=== PATIENT | female | born 1970 | race Caucasian/White ===

== ENCOUNTER → 2018-05-14 | Outpatient (CLI) | payer MEDICAID ==
--- NOTE | 2018-05-14 16:50 | Diagnostic Imaging Report ---
INDICATION: Shortness of breath, obstructive airways disease. EXAM: PA and lateral chest FINDINGS: There are postop changes from right thoracotomy with resection of portions of the ribs and right posterior thoracic cage. Heart size and pulmonary vascularity are normal. Lungs are clear. There are no effusions or pneumothoraces. IMPRESSION: There is some deformity of the thoracic cage in the right posterior chest presumably from previous thoracotomy. No acute abnormality is seen. Dictated by: Dictated on workstation # [id number]
== END ==
LOC: LAB 15:05
PROVIDERS: ATTEND Nurse Practitioner Family
DX: J45.909 Unspecified asthma, uncomplicated (principal); J42 Unspecified chronic bronchitis; G47.10 Hypersomnia, unspecified; G25.81 Restless legs syndrome
CPT/HCPCS: 71046

== ENCOUNTER → 2018-05-27 | Outpatient (CLI) | payer MEDICAID ==
[2018-05-14 15:58] LABS: ABG BASE EXCESS 3.8 MMOL/L (-2.5-2.5); ABG OXYGEN SATURATION 97 % (94-100); ABG PCO2 39 MMHG (35-45); ABG PH 7.46 (7.37-7.43); ABG PO2 88 MMHG (79-93); ABG TCO2 28.7 MMOL/L (21.0-31.0)
[2018-05-14 16:00] LABS: ALLENS TEST POSITIVE; INSPIRED O2 ROOM AIR; PATIENT TEMP 98.4; VENTILATOR NO
[~2018-05-27] MED LIST: RT-ALBUTEROL SULF 2.5 MG/3 ML PRE-MIX VIAL INH ONE
== END ==
LOC: RT 12:11
PROVIDERS: ATTEND Nurse Practitioner Family
DX: J45.909 Unspecified asthma, uncomplicated (principal); J42 Unspecified chronic bronchitis; G47.10 Hypersomnia, unspecified; G25.81 Restless legs syndrome
CPT/HCPCS: 36600; 82805; 94060; 94726; 94729

== ENCOUNTER 2018-07-25 15:51 | Emergency (ER) | payer MEDICAID | END 2018-07-25 17:38 | disposition home or self-care (01) | LOC: ER 15:51 ==

== ENCOUNTER 2018-08-04 05:16 | Inpatient (IN) | payer MEDICAID ==
[~2018-08-04] VITALS: Ht 152.4 cm; Wt 153.1 kg
[2018-08-04] VITALS (8 sets, daily range): BP systolic 132–178; BP diastolic 66–85
[~2018-08-04 05:16] MED LIST changes: +CEPH500T PO; -RT-ALBUTEROL SULF 2.5 MG/3 ML PRE-MIX VIAL INH ONE
--- OUTSIDE RECORDS SUMMARY | 2018-08-04 05:28 | XMS REPORT | Continuity of Care Document ---
Author Author [facility] Organization [facility] Address Unknown Phone Unavailable Allergies Active Description Code Type Severity Reaction Onset Reported/Identified Relationship to Patient Clinical Status Yes Most psych meds Drug N/A N/A Yes penicillin Drug N/A N/A Yes Stadol Drug N/A N/ A Yes traMADol Drug N/A N/A Yes BUTORPHANOL TARTRATE UNKNOWN UNKNOWN Yes PENICILLINS UNKNOWN UNKNOWN Yes PSYCH MEDS UNKNOWN UNKNOWN Yes BUTORPHANOL TARTRATE DRUG INGREDI N/A N/A 01/29/2011 Yes PENICILLINS 26 Drug Class N/A N/A 01/29/2011 Yes DULOXETINE HCL 86330 DRUG N/A N/A 11/01/2011 Yes DULOXETINE HCL 08209 DRUG N/A Other 11/01/2011 11/01/2011 Yes GABAPENTIN 34222 DRUG INGREDI N /A N/A 11/01/2011 Yes OXCARBAZEPINE 34786 DRUG INGREDI Med Hives 11/01/2011 Yes ZIPRASIDONE 71020 DRUG INGREDI N/A N/A 11/01/2011 Yes TRAMADOL 76722 DRUG INGREDI N/ A Itching~Nausea 03/07/2017 03/07/2017 Yes penicillin NKMA N/A UNKNOWN AT THIS TIME 08/15/2017 Yes Stadol NKMA N/A UKNOWN AT THIS TIME 08/15/2017 Yes penicillin NKMA N/A N/V, FEVER 08/16/2017 Yes butorphanol [id number] Drug Allergy Severe N/A 05/27/2018 Yes Penicillins [id number] Drug Allergy Unknown NAUSEA 05/27/2018 Yes SYMBALTA SYMBALTA Unknown NAUSEA 05/27/2018 Medications Medication Packaging Start Date Stop Date Route Dosage Sig pramipexole (MIRAPEX) 0.25 mg tablet -- TAKE TWO TABLETS BY MOUTH ONCE DAILY. tablet 11/15/2016 NITROGLYCERIN 0.4 MG SL SUBL Sublingual 0.4 EVERY 5 MIN PRN ASPIRIN 81 MG PO CHEW 12/12/2016 Oral 324 ONCE HYDROXYZINE HCL 25 MG PO TABS Oral 25 ONCE SUMAtriptan-naproxen (TREXIMET) 85-500 mg tablet -- Take 1 tablet by mouth two times a day after meals, as needed for Other (Migraines) tablet 02/13/2017 Oral 2 TIMES A DAY AFTER MEALS NEEDED 2 TIMES A DAY AFTER MEALS NEEDED pregabalin(Lyrica) 08/15/2017 Oral 150 mg 150 mg, Oral , BID, 0 Refill(s) diclofenac(diclofenac) 2017 Oral 75 mg 75 mg , Oral, BID, 0 Refill(s) divalproex sodium(divalproex sodium 500 mg oral tablet, extended release) 1 tabs 08/15/2017 Oral 500 mg 500 mg=1 tabs, Oral, BID, 0 Refill(s) metoprolol(metoprolol succinate 100 mg oral tablet, extended release) 1 tabs 08/15/2017 Oral 100 mg 100 mg=1 tabs, Oral, BID, 0 Refill(s) SUMAtriptan-naproxen(Treximet 85 mg-500 mg oral tablet) 1 tabs 08/15/2017 Oral 1 tabs, Oral, Once, may repeat dose once in 2 hours, PRN: as needed for migraine headache, 0 Refill(s) glyBURIDE(glyBURIDE 2.5 mg oral tablet) 1 tabs 08/15/2017 Oral 2.5 mg 2.5 mg=1 tabs, Oral, BID, 0 Refill(s) atorvastatin(atorvastatin 20 mg oral tablet) 1 tabs 08/15/2017 Oral 20 mg 20 mg=1 tabs, Oral, Daily, 0 Refill(s) hydrochlorothiazide(hydroCHLOROthiazide 25 mg oral tablet) 1 tabs 08/15/2017 Oral 25 mg 25 mg=1 tabs, Oral, Daily, 0 Refill(s) levothyroxine(levothyroxine) Oral 112 mcg 112 mcg, Oral, Daily, 0 Refill(s) Lactated Ringers Injection(Lactated Ringers Injection 1,000 mL) 1,000 mL 08/16/2017 08/16/2017 IV 10 mL/hr, IV midazolam(Versed) 2 mL 08/16/2017 08/16/2017 IV Push 2 mg 2 mg=2 mL, IV Push, Once fentaNYL(Sublimaze) 1 mL 201708/16/2017 IV Push 50 mcg 50 mcg=1 mL, IV Push, Once famotidine(Pepcid) 2 mL 08/16/2017 08/16/2017 IV Push 20 mg 20 mg=2 mL, IV Push, Once HYDROmorphone(Dilaudid) 2 mL 201708/16/2017 IV Push 2 mg 2 mg=2 mL, IV Push, q4hr, PRN: Pain - Breakthrough oxycodone-acetaminophen(Percocet 5/325 oral tablet) 2 tabs 08/16/2017 08/16/2017 Oral 2 tabs, Oral, q4hr, PRN: Pain Moderate (4-6) oxycodone-acetaminophen(Percocet 5/325 oral tablet) 1 tabs 08/16/2017 Oral 1 tabs, Oral, q4hr, PRN: Pain Moderate (4-6), 0 Refill(s) HYDROmorphone(Dilaudid) 0.5 mL 08/16/2017 IV Push 0.5 mg 0.5 mg=0.5 mL, IV Push, q5min, PRN: Pain HYDROmorphone(Dilaudid) 0.5 mL 08/16/2017 IV Push 0.5 mg 0.5 mg=0.5 mL, IV Push, q10min, PRN: Pain ORPHENADRINE INJ 60 MG/2CC (NORFLEX) MG 02/11/2018 02/11/2018 ONCE&0201 HYDROCODONE/APAP 5MG/325MG TAB 5 MG/325MG (MIKE-TAB 5/325) TAB 02/11/2018 02/11/2018 ONCE&0229 KETOROLAC VIAL INJ 60 MG/2CC (TORADOL VIAL) MG 02/11/2018 02/15/2018 Q6H&0600,1200,1800,2359 SUMATRIPTAN TAB 50 MG (IMITREX) MG 02/11/2018 02/18/2018 PRN Q6H NORMAL SALINE 1000CC IV BAG INJ 0.9 % (NS 1000CC IV BAG) ml 02/19/2018 02/20/2018 CONTINUOUSEVERY 0 Hour INSULIN REGULAR HUMAN INJ 100 UNITS/CC (HUMULIN R / NOVOLIN R INSULIN) UNITS 02/19/2018 02/19/2018 ONCE&1750 NORMAL SALINE 1000CC IV BAG INJ 0.9 % (NS 1000CC IV BAG) ml 02/19/2018 03/06/2018 CONTINUOUSEVERY 0 Hour Potassium Chloride Powder for Oral Soln 20mEQ packet MEQ 02/19/2018 02/19/2018 ONCE&1930 INSULIN ASPART PEN INJ 100 UNITS/CC (NOVOLOG FLEXPEN) UNITS 02/27/2018 02/27/2018 ONCE&1701 POTASSIUM CHLORIDE TAB 20 MEQ (K-DUR) MEQ 02/27/2018 02/27/2018 ONCE&1731 MECLIZINE TAB 25 MG (ANTIVERT) MG 02/27/2018 02/27/2018 PRN ONCE KETOROLAC VIAL INJ 60 MG/2CC (TORADOL VIAL) MG 03/21/2018 03/21/2018 ONCE&1549 Problems Date Dx Coded Attending Type Code Diagnosis Diagnosed By 08/28/2016 PUJA CUELLAR WORKING E03.9 Hypothyroidism, unspecified 08/28/2016 PUJA CUELLAR WORKING I10 Essential (primary) hypertension 08/28/2016 PUJA CUELLAR WORKING R07.89 Other chest pain 08/28/2016 PUJA CUELLAR WORKING Z01.419 Encounter for gynecological examination (general) (routine) without abnormal findings 08/28/2016 PUJA CUELLAR WORKING Z12.4 Encounter for screening for malignant neoplasm of cervix 08/28/2016 WORKING E03.9 Hypothyroidism, unspecified 08/28/2016 WORKING G43.009 Migraine without aura, not intractable, without status migrainosus 08/28/2016 WORKING G89.4 Chronic pain syndrome 08/28/2016 WORKING I10 Essential (primary) hypertension 08/28/2016 WORKING M79.7 Fibromyalgia 08/28/2016 WORKING R07.89 Other chest pain 08/28/2016 WORKING R56.9 Unspecified convulsions (CMS-HCC) 08/28/2016 WORKING R60.0 Localized edema 08/28/2016 WORKING Z01.419 Encounter for gynecological examination (general) (routine) without abnormal findings 08/28/2016 WORKING Z12.4 Encounter for screening for malignant neoplasm of cervix 08/28/2016 WORKING Z23 Encounter for immunization 08/28/2016 WORKING Z68.43 Body mass index (bmi) 50-59.9 , adult ([facility]) 09/01/2016 PUJA CUELLAR WORKING R60.0 Localized edema 10/16/2016 V [id number] Insect Bite 10/17/2016 PUJA CUELLAR WORKING E03.9 Hypothyroidism, unspecified 10/17/2016 PUJA CUELLAR WORKING L08.9 Local infection of the skin and subcutaneous tissue, unspecified 10/17/2016 PUJA CUELLAR WORKING M79.89 Other specified soft tissue disorders 10/17/2016 PUJA CUELLAR WORKING R06.02 Shortness of breath 10/17/2016 PUJA CUELLAR WORKING R07.89 Other chest pain 10/17/2016 PUJA CUELLAR WORKING S60.469A Insect bite (nonvenomous) of unspecified finger, initial encounter 10/17/2016 PUJA CUELLAR WORKING W57.XXXA Bitten or stung by nonvenomous insect and other nonvenomous arthropods, initial encounter 11/15/2016 PUJA CUELLAR WORKING E03.9 Hypothyroidism, unspecified 11/15/2016 PUJA CUELLAR WORKING M79.672 Pain in left foot 11/15/2016 PUJA CUELLAR WORKING M79.89 Other specified soft tissue disorders 11/15/2016 PUJA CUELLAR WORKING M79.672 Pain in left foot 11/15/2016 PUJA CUELLAR WORKING M79.89 Other specified soft tissue disorders 12/12/2016 DEVADER, ABDULKADIR E V [id number] Chest Pain DEVADER, ABDULKADIR E 12/12/2016 DEVADER, ABDULKADIR E V I10 Essential (primary) hypertension DEVADER, ABDULKADIR E 12/12/2016 DEVADER, ABDULKADIR E V R07.9 Chest pain, unspecified DEVADER, ABDULKADIR E 01/03/2017 NATALIE MILES V R07.9 Chest pain, unspecified LEXNATALIE CAMPO P 02/19/2017 INGRAMANN OSMAN M V I10 Essential (primary) hypertension ANN INGRAM M 02/19/2017 ADORE INGRMAAH M V R06.02 Shortness of breath INGRAM, ANN Gutierrez 02/19/2017 INGRAM, ANN Gutierrez V R53.83 Other fatigue INGRAM, ANN Gutierrez 02/19/2017 INGRAM, ANN Gutierrez V R60.9 Edema, unspecified INGRAM, ANN Gutierrez 02/19/2017 INGRAM, ANN Gutierrez V Z82.49 Family history of ischemic heart disease and other diseases of the circulatory system ANN INGRAM 08/07/2017 P R9431 Abnormal electrocardiogram [ECG] [EKG] 08/21/2017 House Shawn Final E03.9 Hypothyroidism, unspecified 08/21/2017 House Shawn Final E11.9 Type 2 diabetes mellitus without complications 08/21/2017 House Shawn Final E66.01 Morbid (severe) obesity due to excess calories 08/21/2017 House Shawn Final I10 Essential (primary) hypertension 08/21/2017 House Shawn Final I25.2 Old myocardial infarction 08/21/2017 Lacy,[place] Reason M21.6X2 Other acquired deformities of left foot 08/21/2017 House Shawn Final M67.02 Short Achilles tendon (acquired), left ankle 08/21/2017 House Shawn Final R56.9 Unspecified convulsions 08/21/2017 House Shawn Final Z68.44 Body mass index (BMI) 60.0-69.9, adult 08/21/2017 House Shawn Final Z79.84 detention (current) use of oral hypoglycemic drugs 08/21/2017 House Shawn Final Z87.891 Personal history of nicotine dependence 08/21/2017 House Shawn Final Z88.0 Allergy status to penicillin 08/21/2017 House Shawn Final Z88.8 Allergy status to other drugs, medicaments and biological substances status 02/11/2018 FABIAN GARCÍA W 338.2 CHRONIC PAIN 02/11/2018 FABIAN GARCÍA A 346.90 MIGRAINE, UNSPECIFIED, WITHOUT MENTION OF INTRACTABLE MIGRAINE, WITHOUT MENTION OF STATUS MIGRAINOSUS 02/11/2018 FABIAN GARCÍA W 724.2 LUMBAGO 02/11/2018 RICKY FABIAN Valverde G43.909 MIGRAINE, UNSP, NOT INTRACTABLE, WITHOUT STATUS MIGRAINOSUS 02/11/2018 RICKYMALLIKAFABIAN W G89.29 OTHER CHRONIC PAIN 02/11/2018 RICKYMALLIKAFABIAN W M54.5 LOW BACK PAIN 02/19/2018 Ronak Laurent 250.80 DIABETES MELLITUS WITH OTHER SPECIFIED MANIFESTATIONS, TYPE II OR UNSPECIFIED TYPE, NOT STATED UNCONTROLLED 02/19/2018 Ronak Laurent 278.01 MORBID OBESITY 02/19/2018 Ronak Laurent E11.65 TYPE 2 DIABETES MELLITUS WITH HYPERGLYCEMIA 02/19/2018 Ronak Laurent E66.01 MORBID (SEVERE) OBESITY DUE TO EXCESS CALORIES 02/27/2018 Bernarda Bliss 250.80 DIABETES MELLITUS WITH OTHER SPECIFIED MANIFESTATIONS, TYPE II OR UNSPECIFIED TYPE, NOT STATED UNCONTROLLED 02/27/2018 Bernarda Bliss E11.65 TYPE 2 DIABETES MELLITUS WITH HYPERGLYCEMIA 03/21/2018 Ronak Laurent S93.602A UNSPECIFIED SPRAIN OF LEFT FOOT, INITIAL ENCOUNTER 05/16/2018 NORMA VAZQUEZ TECHNICAL SUPPORT ENGINEER Ot G25.81 RESTLESS LEGS SYNDROME 05/16/2018 NORMA VAZQUEZ TECHNICAL SUPPORT ENGINEER Ot G47.10 HYPERSOMNIA, UNSPECIFIED 05/16/2018 NORMA VAZQUEZ TECHNICAL SUPPORT ENGINEER Ot J42 UNSPECIFIED CHRONIC BRONCHITIS 05/16/2018 NORMA VAZQUEZ TECHNICAL SUPPORT ENGINEER Ot J45.909 UNSPECIFIED ASTHMA, UNCOMPLICATED 05/27/2018 NORMA VAZQUEZ TECHNICAL SUPPORT ENGINEER Ot G25.81 RESTLESS LEGS SYNDROME 05/27/2018 NORMA VAZQUEZ E TECHNICAL SUPPORT ENGINEER Ot G47.10 HYPERSOMNIA, UNSPECIFIED 05/27/2018 NORMA VAZQUEZ TECHNICAL SUPPORT ENGINEER Ot J42 UNSPECIFIED CHRONIC BRONCHITIS 05/27/2018 NORMA VAZQUEZ TECHNICAL SUPPORT ENGINEER Ot J45.909 UNSPECIFIED ASTHMA, UNCOMPLICATED 05/28/2018 NORMA VAZQUEZ TECHNICAL SUPPORT ENGINEER Ot G25.81 RESTLESS LEGS SYNDROME 05/28/2018 NORMA VAZQUEZ TECHNICAL SUPPORT ENGINEER Ot G47.10 HYPERSOMNIA, UNSPECIFIED 05/28/2018 NORMA VAZQUEZ E TECHNICAL SUPPORT ENGINEER Ot J42 UNSPECIFIED CHRONIC BRONCHITIS 05/28/2018 NORMA VAZQUEZ E TECHNICAL SUPPORT ENGINEER Ot J45.909 UNSPECIFIED ASTHMA, UNCOMPLICATED 05/31/2018 TAYLOR, NORMA E TECHNICAL SUPPORT ENGINEER Ot G25.81 RESTLESS LEGS SYNDROME 05/31/2018 TAYLOR, NORMA E TECHNICAL SUPPORT ENGINEER Ot G47.10 HYPERSOMNIA, UNSPECIFIED 05/31/2018 TAYLORARAMNORMA E TECHNICAL SUPPORT ENGINEER Ot J42 UNSPECIFIED CHRONIC BRONCHITIS 05/31/2018 TAYLORARAM SORENSONINE E TECHNICAL SUPPORT ENGINEER Ot J45.909 UNSPECIFIED ASTHMA, UNCOMPLICATED 06/17/2018 TAYLOR, NORMA E TECHNICAL SUPPORT ENGINEER Ot G25.81 RESTLESS LEGS SYNDROME 06/17/2018 TAYLOR, NORMA E TECHNICAL SUPPORT ENGINEER Ot G47.10 HYPERSOMNIA, UNSPECIFIED 06/17/2018 TAYLOR, NORMA E TECHNICAL SUPPORT ENGINEER Ot J42 UNSPECIFIED CHRONIC BRONCHITIS 06/17/2018 TAYLOR, NORMA E TECHNICAL SUPPORT ENGINEER Ot J45.909 UNSPECIFIED ASTHMA, UNCOMPLICATED 07/08/2018 TAYLORARAM SORENSONINE E TECHNICAL SUPPORT ENGINEER Ot G25.81 RESTLESS LEGS SYNDROME 07/08/2018 TAYLORARAM SORENSONINE E TECHNICAL SUPPORT ENGINEER Ot G47.10 HYPERSOMNIA, UNSPECIFIED 07/08/2018 TAYLOR, NORMA E TECHNICAL SUPPORT ENGINEER Ot J42 UNSPECIFIED CHRONIC BRONCHITIS 07/08/2018 TAYLOR, NORMA E TECHNICAL SUPPORT ENGINEER Ot J45.909 UNSPECIFIED ASTHMA, UNCOMPLICATED 07/08/2018 TAYLORARAM SORENSONINE E TECHNICAL SUPPORT ENGINEER Ot G25.81 RESTLESS LEGS SYNDROME 07/08/2018 TAYLOR, NORMA E TECHNICAL SUPPORT ENGINEER Ot G47.10 HYPERSOMNIA, UNSPECIFIED 07/08/2018 TAYLORARAM SORENSONINE E TECHNICAL SUPPORT ENGINEER Ot J42 UNSPECIFIED CHRONIC BRONCHITIS 07/08/2018 ARAM VAZQUEZINE E TECHNICAL SUPPORT ENGINEER Ot J45.909 UNSPECIFIED ASTHMA, UNCOMPLICATED 07/29/2018 TAMEKA KEYS, LEATHA Shah Ot E03.9 HYPOTHYROIDISM, UNSPECIFIED 07/29/2018 TAMEKA KEYS, LEATHA J Ot E11.9 TYPE 2 DIABETES MELLITUS WITHOUT COMPLIC 07/29/2018 TAMEKA KEYS, LEATHA Shah Ot N39.0 URINARY TRACT INFECTION, SITE NOT SPECIF 07/29/2018 TAMEKA KEYS, LEATHA J Ot R40.4 TRANSIENT ALTERATION OF AWARENESS 07/29/2018 TAMEKA KEYS, LEATHA J Ot R55 SYNCOPE AND COLLAPSE 07/29/2018 TAMEKA KEYS, LEATHA J Ot Z87.891 PERSONAL HISTORY OF NICOTINE DEPENDENCE 07/29/2018 TAMEKA KEYS, LEATHA Shah Ot Z88.0 ALLERGY STATUS TO PENICILLIN 07/29/2018 TAMEKA KEYS, LEATHA Shah Ot Z88.8 ALLERGY STATUS TO OTH DRUG/MEDS/BIOL SUB Procedures Code [place] [address] Arthrodesis, midtarsal or tarsometatarsal, single joint.. 08/16/2017 Results Test Result Range URINALYSIS REFLEX TO CULTURE - 08/28/16 11:07 SPECIMEN MIDSTREAM URINE COLOR YELLOW APPEARANCE HAZY CLEAR SPECIFIC GRAVITY 1.014 1.005-1.030 PH, URINE 5.0 5.0-9.0 PROTEIN NEGATIVE mg/dL NEGATIVE GLUC NEGATIVE mg/dL NEGATIVE KETONES NEGATIVE mg/dL NEGATIVE BILIRUBIN NEGATIVE NEGATIVE BLOOD NEGATIVE NEGATIVE NITRITE NEGATIVE NEGATIVE UROBILINOGEN NORMAL mg/dL NORMAL LEUKOCYTE ESTERASE NEGATIVE NEGATIVE WBC'S 2 [HPF] 0-4 RBC'S <1 [HPF] 0-1 MUCUS OCCASIONAL [LPF] NEGATIVE SQUAMOUS EPITHELIAL CELLS 3 [HPF] 0-1 BACTERIA RARE [HPF] NEGATIVE CBC WITH DIFF - 08/28/16 11:07 WBC 8.76 10*3/uL 4.00-10.80 RBC 4.82 10*6/uL 4.20-5.40 HGB 14.9 g/dL 12.0-16.0 HCT 46.7 % 37.0-47.0 MCV 97 fL 81-99 MCH 31 pg 26.0-34.0 MCHC 31.9 g/dL 31.0-37.0 PLATELET COUNT 496 10*3/uL 150-400 RDWCV 13.2 % 11.5-14.5 DIFF TYPE AUTOMATED DIFF NEUTROPHIL % 51.1 % 36.0-66.0 LYMPHOCYTE % 38.1 % 24.0-44.0 MONOCYTE % 6.7 % 1.0-10.0 EOSINOPHIL % 3.2 % 0.0-6.0 BASOPHIL % 0.6 % 0.0-2.0 ABS. NEUTROPHILS 4.47 10*3/uL 1.55-7.13 ABS. LYMPHOCYTES 3.34 10*3/uL 1.00-4.80 ABS. MONOCYTES 0.59 10*3/uL 0.40-1.08 ABS. EOSINOPHILS 0.28 10*3/uL 0.00-0.65 ABS. BASOPHILS 0.05 10*3/uL 0.00-0.11 ABSOLUTE NUCLEATED RBC 0.00 10*3/uL 0.00 PERCENT NUCLEATED RBC 0.0 % 0.0 MPV 9.4 fL 9.4-12.3 RDW STANDARD DEVIATION 47.6 fL 36.4-46.3 GRANULOCYTE, IMMATURE, ABSOLUTE 0.0 10*3/uL 0.0-0.1 GRANULOCYTES, IMMATURE, PERCENT 0.3 % 0.0-0.5 COMPREHENSIVE METABOLIC PANEL - 08/28/16 11:07 POTASSIUM 4.1 mmol/L 3.5-5.1 CALCIUM 9.2 mg/dL 8.5-10.0 GLUCOSE 111 mg/dL 70-115 BUN 10 mg/dL 7-18 CREATININE 0.76 mg/dL 0.55-1.30 SODIUM 140 mmol/L 136-145 CHLORIDE 101 mmol/L 98-107 CO2 26 mmol/L 21-32 GFR ESTIMATED NOT AFR/AM >60 GFR ESTIMATED IF AFR/AM >60 ALT-SGPT 26 U/L 13-56 AST-SGOT 17 U/L 15-37 TOTAL PROTEIN,SERUM 7.8 g/dL 6.0-8.3 ALBUMIN 3.9 g/dL 3.4-5.0 ALKALINE PHOSPHATASE 117 U/L 45-117 TOTAL BILIRUBIN 0.4 mg/dL 0.2-1.0 ANION GAP 13 5-15 GLOBULIN, CALCULATED 3.9 g/dL A/G RATIO 1.0 ratio 1-1.8 LIPID PANEL WITH DIRECT MEASURED LDL - 08/28/16 11:07 TRIGLYCERIDES 183 mg/dL 20-170 CHOLESTEROL 206 mg/dL <201 HDL 73 mg/dL 40-60 LOW DENSITY LIPOPROTEIN, DIRECT 117 mg/dL <100 TSH WITH REFLEX TO FREE T4 - 08/28/16 11:07 TSH 3RD GENERATION 4.410 u[iU]/mL 0.350-4.900 PAP LIQUID PAP SCREENING - 08/28/16 13:00 PAP RESULT NEGATIVE NEGATIVE CBC WITH DIFF - 10/17/16 14:45 WBC 8.46 10*3/uL 4.00-10.80 RBC 4.41 10*6/uL 4.20-5.40 HGB 13.5 g/dL 12.0-16.0 HCT 41.0 % 37.0-47.0 MCV 93 fL 81-99 MCH 31 pg 26.0-34.0 MCHC 32.9 g/dL 31.0-37.0 PLATELET COUNT 400 10*3/uL 150-400 RDWCV 13.3 % 11.5-14.5 DIFF TYPE AUTOMATED DIFF NEUTROPHIL % 53.6 % 36.0-66.0 LYMPHOCYTE % 34.3 % 24.0-44.0 MONOCYTE % 8.3 % 1.0-10.0 EOSINOPHIL % 3.1 % 0.0-6.0 BASOPHIL % 0.5 % 0.0-2.0 ABS. NEUTROPHILS 4.54 10*3/uL 1.55-7.13 ABS. LYMPHOCYTES 2.90 10*3/uL 1.00-4.80 ABS. MONOCYTES 0.70 10*3/uL 0.40-1.08 ABS. EOSINOPHILS 0.26 10*3/uL 0.00-0.65 ABS. BASOPHILS 0.04 10*3/uL 0.00-0.11 ABSOLUTE NUCLEATED RBC 0.00 10*3/uL 0.00 PERCENT NUCLEATED RBC 0.0 % 0.0 MPV 9.4 fL 9.4-12.3 RDW STANDARD DEVIATION 45.6 fL 36.4-46.3 GRANULOCYTE, IMMATURE, ABSOLUTE 0.0 10*3/uL 0.0-0.1 GRANULOCYTES, IMMATURE, PERCENT 0.2 % 0.0-0.5 COMPREHENSIVE METABOLIC PANEL - 10/17/16 14:45 POTASSIUM 3.5 mmol/L 3.5-5.1 CALCIUM 8.6 mg/dL 8.5-10.0 GLUCOSE 137 mg/dL 70-115 BUN 12 mg/dL 7-18 CREATININE 0.73 mg/dL 0.55-1.30 SODIUM 139 mmol/L 136-145 CHLORIDE 103 mmol/L 98-107 CO2 28 mmol/L 21-32 GFR ESTIMATED NOT AFR/AM >60 GFR ESTIMATED IF AFR/AM >60 ALT-SGPT 26 U/L 13-56 AST-SGOT 16 U/L 15-37 TOTAL PROTEIN,SERUM 7.6 g/dL 6.0-8.3 ALBUMIN 3.5 g/dL 3.4-5.0 ALKALINE PHOSPHATASE 118 U/L 45-117 TOTAL BILIRUBIN 0.4 mg/dL 0.2-1.0 ANION GAP 8 5-15 GLOBULIN, CALCULATED 4.1 g/dL A/G RATIO 0.9 ratio 1-1.8 NT PROBRAIN NATRIURETIC PEPTIDE - 10/17/16 14:45 NT PROBRAIN NATRIURETIC PEPTIDE 13 pg/mL <125 TSH WITH REFLEX TO FREE T4 - 10/17/16 14:45 TSH 3RD GENERATION 5.320 u[iU]/mL 0.350-4.900 T4 FREE, DIRECT - 10/17/16 14:45 T4 (THYROXINE), FREE 1.03 ng/dL 0.7-1.48 HEMOGLOBIN A1C - 10/17/16 14:45 HEMOGLOBIN A1C 6.6 % <5.6 ESTIMATED AVERAGE GLUCOSE 143 mg/dL CBC WITH DIFF - 11/15/16 11:03 WBC 6.82 10*3/uL 4.00-10.80 RBC 4.43 10*6/uL 4.20-5.40 HGB 13.4 g/dL 12.0-16.0 HCT 42.0 % 37.0-47.0 MCV 95 fL 81-99 MCH 30 pg 26.0-34.0 MCHC 31.9 g/dL 31.0-37.0 PLATELET COUNT 448 10*3/uL 150-400 RDWCV 14.6 % 11.5-14.5 DIFF TYPE AUTOMATED DIFF NEUTROPHIL % 43.4 % 36.0-66.0 LYMPHOCYTE % 44.3 % 24.0-44.0 MONOCYTE % 7.3 % 1.0-10.0 EOSINOPHIL % 4.3 % 0.0-6.0 BASOPHIL % 0.4 % 0.0-2.0 ABS. NEUTROPHILS 2.96 10*3/uL 1.55-7.13 ABS. LYMPHOCYTES 3.02 10*3/uL 1.00-4.80 ABS. MONOCYTES 0.50 10*3/uL 0.40-1.08 ABS. EOSINOPHILS 0.29 10*3/uL 0.00-0.65 ABS. BASOPHILS 0.03 10*3/uL 0.00-0.11 ABSOLUTE NUCLEATED RBC 0.00 10*3/uL 0.00 PERCENT NUCLEATED RBC 0.0 % 0.0 MPV 9.8 fL 9.4-12.3 RDW STANDARD DEVIATION 51.0 fL 36.4-46.3 GRANULOCYTE, IMMATURE, ABSOLUTE 0.0 10*3/uL 0.0-0.1 GRANULOCYTES, IMMATURE, PERCENT 0.3 % 0.0-0.5 COMPREHENSIVE METABOLIC PANEL - 11/15/16 11:03 POTASSIUM 4.2 mmol/L 3.5-5.1 CALCIUM 8.6 mg/dL 8.5-10.0 GLUCOSE 157 mg/dL 70-115 BUN 14 mg/dL 7-18 CREATININE 0.80 mg/dL 0.55-1.30 SODIUM 143 mmol/L 136-145 CHLORIDE 104 mmol/L 98-107 CO2 30 mmol/L 21-32 GFR ESTIMATED NOT AFR/AM >60 GFR ESTIMATED IF AFR/AM >60 ALT-SGPT 20 U/L 13-56 AST-SGOT 12 U/L 15-37 TOTAL PROTEIN,SERUM 6.9 g/dL 6.0-8.3 ALBUMIN 3.3 g/dL 3.4-5.0 ALKALINE PHOSPHATASE 108 U/L 45-117 TOTAL BILIRUBIN 0.4 mg/dL 0.2-1.0 ANION GAP 9 5-15 GLOBULIN, CALCULATED 3.6 g/dL A/G RATIO 0.9 ratio 1-1.8 TSH WITH REFLEX TO FREE T4 - 11/15/16 11:03 TSH 3RD GENERATION 1.530 u[iU]/mL 0.350-4.900 URIC ACID SERUM - 11/15/16 11:03 URIC ACID 5.2 mg/dL 2.6-6 D-DIMER QUANT (FOR THROMBOSIS) - 11/15/16 11:03 D-DIMER 0.27 ug/mL 0-0.49 CBC WITH AUTO DIFFERENTIAL - 12/12/16 19:30 BASOPHILS RELATIVE PERCENT 0.6 % 0.0-2.5 EOSINOPHILS RELATIVE PERCENT 2.8 % <=5.0 HEMATOCRIT 39.9 % 34.9-44.5 HEMOGLOBIN 13.2 g/dL 12.0-15.5 LYMPHOCYTES RELATIVE PERCENT 40.0 % 22.0-49.0 MEAN CORPUSCULAR HEMOGLOBIN 30.8 pg 26.0-34.0 MEAN CORPUSCULAR HEMOGLOBIN CONC 33.1 g/dL 31.0-37.0 MEAN CORPUSCULAR VOLUME 93.0 fL 81.6-98.3 MONOCYTES RELATIVE PERCENT 9.3 % 2.0-9.0 NEUTROPHILS RELATIVE PERCENT 47.3 % 40.0-75.0 NUCLEATED RED BLOOD CELLS 0 /100 <=0 PLATELET COUNT 293 10E9/L 150-450 RED BLOOD CELL COUNT 4.29 10E12/L 3.90-5.03 RED CELL DISTRIBUTION WIDTH 14.6 % 11.9-15.5 [id number] 6.7 10E9/L 3.5-10.5 2143766 2.68 10E9/L 0.90-2.90 1877694 0.62 10E9/L 0.30-0.90 6481042 0.19 10E9/L 0.05-0.50 9924350 3.17 10E9/L 1.70-7.00 4103943 0.04 10E9/L 0.00-0.30 8301628 0 % PT T APTT - 12/12/16 19:30 APTT 26.0 sec. 25.0-36.0 INR 0.91 INR PROTHROMBIN TIME 12.2 sec. 11.8-14.8 MAGNESIUM - 12/12/16 19:30 MAGNESIUM 1.6 mg/dL 1.6-2.3 COMPREHENSIVE METABOLIC PANEL - 12/12/16 19:30 ALBUMIN 3.9 g/dL 3.4-4.8 ALKALINE PHOSPHATASE 103 U/L 29-122 ALT 12 U/L 10-46 ANION GAP 6 AST 18 U/L 16-37 BILIRUBIN,TOTAL < mg/dL 0.2-1.3 BUN BLOOD 21 mg/dL 6-20 CALCIUM 9.1 mg/dL 8.7-10.5 CHLORIDE 102 mmol/L 99-111 CO2 30 mmol/L 20-36 CREATININE 1.03 mg/dL 0.40-1.10 EGFR 58 mL/min >59 GLUCOSE 139 mg/dL 74-106 POTASSIUM 4.2 mmol/L 3.6-4.9 PROTEIN TOTAL 6.8 g/dL 6.4-8.3 SODIUM 138 mmol/L 136-145 TROPONIN I - 12/12/16 19:30 TROPONIN I < ng/mL 0.000-0.040 EXTRA BLOOD BANK TUBE - 12/12/16 19:30 1324 Extra tube in lab CBC WITH AUTO DIFFERENTIAL - 12/20/16 14:16 BASOPHILS RELATIVE PERCENT 0.8 % 0.0-2.5 EOSINOPHILS RELATIVE PERCENT 4.2 % <=5.0 HEMATOCRIT 41.9 % 34.9-44.5 HEMOGLOBIN 13.7 g/dL 12.0-15.5 LYMPHOCYTES RELATIVE PERCENT 39.5 % 22.0-49.0 MEAN CORPUSCULAR HEMOGLOBIN 30.6 pg 26.0-34.0 MEAN CORPUSCULAR HEMOGLOBIN CONC 32.7 g/dL 31.0-37.0 MEAN CORPUSCULAR VOLUME 93.7 fL 81.6-98.3 MONOCYTES RELATIVE PERCENT 8.9 % 2.0-9.0 NEUTROPHILS RELATIVE PERCENT 46.6 % 40.0-75.0 NUCLEATED RED BLOOD CELLS 0 /100 <=0 PLATELET COUNT 331 10E9/L 150-450 RED BLOOD CELL COUNT 4.47 10E12/L 3.90-5.03 RED CELL DISTRIBUTION WIDTH 14.7 % 11.9-15.5 6553595 8.8 10E9/L 3.5-10.5 6700348 3.46 10E9/L 0.90-2.90 4355842 0.78 10E9/L 0.30-0.90 9851996 0.37 10E9/L 0.05-0.50 9801823 4.09 10E9/L 1.70-7.00 2508020 0.07 10E9/L 0.00-0.30 3882196 0 % IRON SATURATION - 12/20/16 14:16 IRON SATURATION 12 % 15-50 HEMOGLOBIN A1C - 12/20/16 14:16 HEMOGLOBIN A1C 6.8 % <5.7 CBC WITH AUTO DIFFERENTIAL - 02/05/17 20:11 BASOPHILS RELATIVE PERCENT 0.2 % 0.0-2.5 EOSINOPHILS RELATIVE PERCENT 2.0 % <=5.0 HEMATOCRIT 41.1 % 34.9-44.5 HEMOGLOBIN 13.6 g/dL 12.0-15.5 LYMPHOCYTES RELATIVE PERCENT 30.6 % 22.0-49.0 MEAN CORPUSCULAR HEMOGLOBIN 30.2 pg 26.0-34.0 MEAN CORPUSCULAR HEMOGLOBIN CONC 33.1 g/dL 31.0-37.0 MEAN CORPUSCULAR VOLUME 91.3 fL 81.6-98.3 MONOCYTES RELATIVE PERCENT 7.5 % 2.0-9.0 NEUTROPHILS RELATIVE PERCENT 59.7 % 40.0-75.0 NUCLEATED RED BLOOD CELLS 0 /100 <=0 PLATELET COUNT 354 10E9/L 150-450 RED BLOOD CELL COUNT 4.50 10E12/L 3.90-5.03 RED CELL DISTRIBUTION WIDTH 14.1 % 11.9-15.5 0026692 8.5 10E9/L 3.5-10.5 3647774 2.60 10E9/L 0.90-2.90 7333977 0.64 10E9/L 0.30-0.90 6069653 0.17 10E9/L 0.05-0.50 6324726 5.06 10E9/L 1.70-7.00 5848254 0.02 10E9/L 0.00-0.30 7980678 0 % COMPREHENSIVE METABOLIC PANEL - 02/05/17 20:11 ALBUMIN 4.1 g/dL 3.4-4.8 ALKALINE PHOSPHATASE 93 U/L 29-122 ALT 23 U/L 10-46 ANION GAP 8 AST 43 U/L 16-37 BILIRUBIN,TOTAL 0.4 mg/dL 0.2-1.3 BUN BLOOD 17 mg/dL 6-20 CALCIUM 9.1 mg/dL 8.7-10.5 CHLORIDE 108 mmol/L 99-111 CO2 26 mmol/L 20-36 CREATININE 0.73 mg/dL 0.40-1.10 EGFR > mL/min >59 GLUCOSE 152 mg/dL 74-106 POTASSIUM 4.0 mmol/L 3.6-4.9 PROTEIN TOTAL 6.9 g/dL 6.4-8.3 SODIUM 142 mmol/L 136-145 EXTRA LIGHT BLUE TOP - 02/05/17 20:11 1324 Extra tube in lab EXTRA LIGHT GREEN TOP - 02/05/17 20:11 1324 Extra tube in lab HEMOGLOBIN A1C - 04/06/17 15:46 HEMOGLOBIN A1C 6.7 % <5.7 B-TYPE NATRIURETIC PEPTIDE - 04/06/17 15:46 B-TYPE NATRIURETIC PEPTIDE 20 pg/mL <=100 VITAMIN D2/D3 TOTAL - 04/06/17 15:46 VITAMIN D2/D3 TOTAL 28 ng/ml 30-100 TSH - 05/15/17 15:30 TSH 4.07 mIU/L NRG CMP - 08/01/17 19:17 GLUCOSE 117 mg/dL 65-99 UREA NITROGEN (BUN) 9 mg/dL 7-25 CREATININE 0.74 mg/dL 0.50-1.10 eGFR NON-AFR. CITIZEN OF [place] 98 mL/min/1.73m2 > OR=60 eGFR 113 mL/min/1.73m2 > OR=60 BUN/CREATININE RATIO NOT APPLICABLE (calc) 6-22 SODIUM 138 mmol/L 135-146 POTASSIUM 3.9 mmol/L 3.5-5.3 CHLORIDE 103 mmol/L 98-110 CARBON DIOXIDE 26 mmol/L 20-31 CALCIUM 9.2 mg/dL 8.6-10.2 PROTEIN, TOTAL 7.3 g/dL 6.1-8.1 ALBUMIN 4.2 g/dL 3.6-5.1 GLOBULIN 3.1 g/dL (calc) 1.9-3.7 ALBUMIN/GLOBULIN RATIO 1.4 (calc) 1.0-2.5 BILIRUBIN, TOTAL 0.5 mg/dL 0.2-1.2 ALKALINE PHOSPHATASE 102 U/L 33-115 AST 21 U/L 10-35 ALT 15 U/L 6-29 Glucose NPT - 08/16/17 07:39 Glucose NPT 152 mg/dL 70-100 Screen, Urine NPT - 08/16/17 08:42 Screen, Urine NPT Negative NA CBC - 01/29/18 11:31 WHITE BLOOD CELL COUNT 8.9 Thousand/uL 3.8-10.8 RED BLOOD CELL COUNT 4.42 Million/uL 3.80-5.10 HEMOGLOBIN 13.7 g/dL 11.7-15.5 HEMATOCRIT 41.1 % 35.0-45.0 MCV 93.0 fL 80.0-100.0 MCH 31.0 pg 27.0-33.0 MCHC 33.3 g/dL 32.0-36.0 RDW 14.6 % 11.0-15.0 PLATELET COUNT 405 Thousand/uL 140-400 MPV 9.2 fL 7.5-12.5 ABSOLUTE NEUTROPHILS 3809 cells/uL 8777-4162 ABSOLUTE LYMPHOCYTES 4050 cells/uL 850-3900 ABSOLUTE MONOCYTES 659 cells/uL 200-950 ABSOLUTE EOSINOPHILS 312 cells/uL 15-500 ABSOLUTE BASOPHILS 71 cells/uL 0-200 NEUTROPHILS 42.8 % NRG LYMPHOCYTES 45.5 % NRG MONOCYTES 7.4 % NRG EOSINOPHILS 3.5 % NRG BASOPHILS 0.8 % NRG Urinalysis - 02/19/18 16:40 Icotest N/A Negative Urine Volume Urine Volume Sufficient (10mL) Urine Yeast No Yeast present Urine-Appearance Slightly Cloudy Clear Urine-Bacteria Trace Urine-Bilirubin Negative Negative Urine-Blood Negative Negative Urine-Color Yellow Colorless-Lt. Yellow Urine-Epithelial Cells 0-5/HPF Urine-Glucose 2+ Negative Urine-Ketones Negative Negative Urine-Leukocytes Negative Negative Urine-Nitrite Negative Negative Urine-Other Urine Saved if Culture Needed (48hrs from time of collection) Urine-pH 6.5 5-8.5 Urine-Protein Negative Negative Urine-RBC Negative Urine-Specific [place] 1.010 1.000-1.030 Urine-WBC Rare/HPF Urobilinogen 0.2 0.2-1.0 Blood Culture - 02/19/18 16:40 PRELIM CULTURE RESULTS Blood Culture Negative, No Growth Day 1 FINAL CULTURE RESULTS Blood Culture Negative, No Growth Day 5 MEDIA PLATED Blood Culture Media Position [id number] CULTURE SOURCE Arterial stick Blood Culture - 02/19/18 16:40 PRELIM CULTURE RESULTS Blood Culture Negative, No Growth Day 1 FINAL CULTURE RESULTS Blood Culture Negative, No Growth Day 5 MEDIA PLATED Blood Culture Media Position A12 CULTURE SOURCE AC Lactic Acid - 02/19/18 19:28 Lactic Acid 19.6 mg/dL 4.5-19.8 TSH - 03/27/18 13:15 TSH 2.87 mIU/L NRG Arterial blood gas measurement - 05/14/18 15:50 Blood pCO2 39 mm[Hg] 35-45 Blood pO2 88 mm[Hg] 79-93 Arterial blood bicarbonate measurement (moles/volume) 28 mmol/L 23-27 Arterial blood base excess by calculation 3.8 mmol/L -2.5 -2.5 Arterial blood oxygen saturation measurement 97 % 94-100 * Inhaled oxygen flow rate ROOM AIR NRG Arterial blood pH measurement with patient temperature correction 7.46 7.37-7.43 Arterial blood carbon dioxide, total measurement (moles/volume) 28.7 mmol/L 21.0-31.0 Body site RIGHT RADIAL NRG Assessment of wrist artery patency prior to arterial puncture POSITIVE NRG Setting of ventilation mode NO NRG Measurement of body temperature 98.4 NRG Capillary blood glucose measurement by glucometer (mass/volume) - 07/25/18 15: 53 Capillary blood glucose measurement by glucometer (mass/volume) 102 mg/dL 70-110 Complete blood count (CBC) with automated white blood cell (WBC) differential - 07/25/18 15:58 Blood leukocytes automated count (number/volume) 8.2 10*3/uL 4.3-11.0 Blood erythrocytes automated count (number/volume) 4.63 10*6/uL 4.35-5.85 Venous blood hemoglobin measurement (mass/volume) 12.8 g/dL 11.5-16.0 Blood hematocrit (volume fraction) 40 % 35-52 Automated erythrocyte mean corpuscular volume 86 [foz_us] 80-99 Automated erythrocyte mean corpuscular hemoglobin (mass per erythrocyte) 28 pg 25-34 Automated erythrocyte mean corpuscular hemoglobin concentration measurement ( mass/volume) 32 g/dL 32-36 Automated erythrocyte distribution width ratio 15.8 % 10.0-14.5 Automated blood platelet count (count/volume) 442 10*3/uL 130-400 Automated blood platelet mean volume measurement 8.7 [foz_us] 7.4-10.4 Automated blood neutrophils/100 leukocytes 40 % 42-75 Automated blood lymphocytes/100 leukocytes 45 % 12-44 Blood monocytes/100 leukocytes 11 % 0-12 Automated blood eosinophils/100 leukocytes 4 % 0-10 Automated blood basophils/100 leukocytes 1 % 0-10 Blood neutrophils automated count (number/volume) 3.3 10*3 1.8-7.8 Blood lymphocytes automated count (number/volume) 3.7 10*3 1.0-4.0 Blood monocytes automated count (number/volume) 0.9 10*3 0.0-1.0 Automated eosinophil count 0.3 10*3/uL 0.0-0.3 Automated blood basophil count (count/volume) 0.0 10*3/uL 0.0-0.1 PT panel in platelet poor plasma by coagulation assay - 07/25/18 15:58 Prothrombin time (PT) in platelet poor plasma by coagulation assay 13.1 s 12.2-14.7 INR in platelet poor plasma or blood by coagulation assay 1.0 0.8-1.4 Activated partial thromboplastin time (aPTT) in platelet poor plasma bycoagulation assay - 07/25/18 15:58 Activated partial thromboplastin time (aPTT) in platelet poor plasma bycoagulation assay 29 s 24-35 Comprehensive metabolic panel - 07/25/18 15:58 Serum or plasma sodium measurement (moles/volume) 141 mmol/L 135-145 Serum or plasma potassium measurement (moles/volume) 3.8 mmol/L 3.6-5.0 Serum or plasma chloride measurement (moles/volume) 102 mmol/L 98-107 Carbon dioxide 28 mmol/L 21-32 Serum or plasma anion gap determination (moles/volume) 11 mmol/L 5-14 Serum or plasma urea nitrogen measurement (mass/volume) 11 mg/dL 7-18 Serum or plasma creatinine measurement (mass/volume) 0.77 mg/dL 0.60-1.30 Serum or plasma urea nitrogen/creatinine mass ratio 14 NRG Serum or plasma creatinine measurement with calculation of estimated glomerular filtration rate > NRG Serum or plasma glucose measurement (mass/volume) 99 mg/dL 70-105 Serum or plasma calcium measurement (mass/volume) 9.0 mg/dL 8.5-10.1 Serum or plasma total bilirubin measurement (mass/volume) 0.4 mg/dL 0.1-1.0 Serum or plasma alkaline phosphatase measurement (enzymatic activity/volume) 140 U/L 40-136 Serum or plasma aspartate aminotransferase measurement (enzymatic activity/ volume) 13 U/L 5-34 Serum or plasma alanine aminotransferase measurement (enzymatic activity/volume ) 13 U/L 0-55 Serum or plasma protein measurement (mass/volume) 7.3 g/dL 6.4-8.2 Serum or plasma albumin measurement (mass/volume) 4.0 g/dL 3.2-4.5 CALCIUM CORRECTED 9.0 mg/dL 8.5-10.1 Serum or plasma troponin i.cardiac measurement (mass/volume) - 07/25/18 15:58 Serum or plasma troponin i.cardiac measurement (mass/volume) < ng/ mL <0.028 THYROID STIMULATING HORMONE - 07/25/18 15:58 THYROID STIMULATING HORMONE 6.78 u[iU]/mL 0.35-4.94 [id number] - 07/25/18 15:58 [id number] 45.9 ug/mL 50.0-100.0 Complete urinalysis with reflex to culture - 07/25/18 16:03 Urine color determination YELLOW NRG Urine clarity determination SLIGHTLY CLOUDY NRG Urine pH measurement by test strip 6 5-9 Specific gravity of urine by test strip 1.025 1.016- 1.022 Urine protein assay by test strip, semi-quantitative 1+ NEGATIVE Urine glucose detection by automated test strip NEGATIVE NEGATIVE Erythrocytes detection in urine sediment by light microscopy NEGATIVE NEGATIVE Urine ketones detection by automated test strip NEGATIVE NEGATIVE Urine nitrite detection by test strip POSITIVE NEGATIVE Urine total bilirubin detection by test strip NEGATIVE NEGATIVE Urine urobilinogen measurement by automated test strip (mass/volume) NORMAL NORMAL Urine leukocyte esterase detection by dipstick 1+ NEGATIVE Automated urine sediment erythrocyte count by microscopy (number/high power field) NONE NRG Automated urine sediment leukocyte count by microscopy (number/high power field ) [HPF] NRG Bacteria detection in urine sediment by light microscopy MODERATE NRG Squamous epithelial cells detection in urine sediment by light microscopy 0-2 NRG Crystals detection in urine sediment by light microscopy NONE NRG Casts detection in urine sediment by light microscopy NONE NRG Mucus detection in urine sediment by light microscopy NEGATIVE NRG Complete urinalysis with reflex to culture CULTURE PENDING NRG Bacterial urine culture - 07/25/18 16:03 Bacterial urine culture [id number] NRG COLONY COUNT >100,000/ML NRG FTX;REPORTABLE SUSCEPTIBILITY REPORTED [id number] NRG RML Sensitivity Panel - 07/25/18 16:03 Gentamicin susceptibility test by minimum inhibitory concentration < = NRG Trimethoprim/sulfamethoxazole susceptibility test by minimum inhibitoryconcentration <= NRG Levofloxacin susceptibility test by minimum inhibitory concentration <= NRG Ampicillin susceptibility test by minimum inhibitory concentration < = NRG Cefazolin susceptibility test by minimum inhibitory concentration < = NRG Ceftriaxone susceptibility test by minimum inhibitory concentration <= NRG Ciprofloxacin susceptibility test by minimum inhibitory concentration <= NRG Meropenem susceptibility test by minimum inhibitory concentration < = NRG Nitrofurantoin susceptibility test by minimum inhibitory concentration 32 NRG Amoxicillin and clavulanate potassium susc CAITLIN <= NRG Arterial blood gas measurement - 07/25/18 16:35 Blood pCO2 41 mm[Hg] 35-45 Blood pO2 62 mm[Hg] 79-93 Arterial blood bicarbonate measurement (moles/volume) 27 mmol/L 23-27 Arterial blood base excess by calculation 2.4 mmol/L -2.5 -2.5 Arterial blood oxygen saturation measurement 93 % 94-100 * Inhaled oxygen flow rate ROOM AIR NRG Arterial blood pH measurement with patient temperature correction 7.42 7.37-7.43 Arterial blood carbon dioxide, total measurement (moles/volume) 28.1 mmol/L 21.0-31.0 Body site RIGHT RADIAL NRG Assessment of wrist artery patency prior to arterial puncture POSITIVE NRG Setting of ventilation mode NO NRG Measurement of body temperature 96.5 NRG Capillary blood glucose measurement by glucometer (mass/volume) - 07/25/18 16: 57 Capillary blood glucose measurement by glucometer (mass/volume) 93 mg/dL 70-110 Encounters ACCT No. Visit Date/Time Discharge Status Pt. Type Provider Facility Loc./Unit Complaint [id number] 04/06/2017 15:40:18 04/06/2017 23:59:59 [facility] Outpatient [place] [id number] 04/06/2017 15:38:43 04/06/2017 23:59:59 [facility] [place]patient [place] [id number] 04/06/2017 15:10:13 04/06/2017 23:59:59 [facility] Outpatient ANN INGRAM [place] [id number] 03/07/2017 11:27:38 03/07/2017 23:59:59 [id number]2017 12:56:06 02/19/2017 23:59:00 [id number]2017 22:08:39 02/19/2017 00:03:00 DIS Emergency TOM PEREZ [facility] [id number] 02/15/2017 12:43:26 02/15/2017 23:59:59 [facility] Outpatient [facility] CODE [id number] 02/05/2017 20:36:04 02/05/2017 22:21:00 DIS Emergency WILLIS SCHAFFER [facility] [id number] 01/25/2017 13:49:36 01/25/2017 23:59:59 CLS Outpatient NATALIE MILES [place] [id number] 01/12/2017 18:47:23 01/12/2017 19:33:00 DIS Emergency BRENT BRAVO [facility] [id number] 01/03/2017 07:56:04 01/03/2017 23:59:00 DIS Outpatient NATALIE MILES [facility] [id number] 12/20/2016 14:06:48 12/20/2016 23:59:59 CLS Outpatient [facility] [id number] 12/20/2016 12:32:09 12/20/2016 23:59:59 CLS Outpatient ANN INGRAM [facility] [id number] 12/12/2016 19:17:11 12/12/2016 21:07:00 DIS Emergency ABDULKADIR JAVED [facility] EMD [id number] 12/01/2016 14:40:35 12/01/2016 23:59:59 CLS Outpatient BOB SCOTT [facility] 823 [id number] 10/16/2016 15:36:13 10/16/2016 15:37:00 DIS Emergency [facility] EMD [id number] 08/21/2016 09:57:38 08/21/2016 23:59:59 CLS Outpatient [facility] 901 [id number] 02/09/2017 12:57:29 Document Registration [id number] 12/12/2016 19:21:19 Document Registration [id number] 08/16/2017 07:04:00 08/16/2017 13:59:00 DIS Outpatient House [facility] [place] V[facility] F3E 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 [id number] 08/17/2017 05:17:23 Document Registration [id number] 08/16/2017 05:17:12 Document Registration [id number] 08/16/2017 05:17:11 Document Registration [id number] 11/13/2017 15:18:00 11/13/2017 16:15:00 DIS Emergency RL DORSEY [facility] ED ED Visit [id number] 03/21/2018 15:27:00 03/21/2018 16:39:00 [id number] 02/27/2018 16:44:00 02/27/2018 18:25:00 [id number] 02/19/2018 16:27:00 02/19/2018 20:16:00 [facility] [id number] 02/11/2018 00:14:00 02/11/2018 03:00:00 [facility] [id number] 02/11/2018 01:59:50 Document Registration [id number] 02/13/2017 12:26:24 Document Registration [id number] 11/15/2016 12:52:43 Document Registration [id number] 10/17/2016 13:27:32 Document Registration [id number] 08/28/2016 08:55:14 Document Registration [id number] 11/23/2016 21:41:59 ACT Document Registration [id number] 08/07/2017 10:47:00 Document Registration [id number] 11/15/2016 10:01:07 11/15/2016 23:59:59 CLS Outpatient [facility] [id number] 11/14/2016 00:00:00 11/14/2016 23:59:59 CLS Outpatient [facility] [id number] 10/17/2016 13:27:32 10/17/2016 23:59:59 CLS Outpatient [facility] [id number] 09/05/2016 00:00:00 09/05/2016 23:59:59 CLS Outpatient [facility] [id number] 09/05/2016 00:00:00 09/05/2016 23:59:59 CLS Outpatient [facility] [id number] 08/30/2016 00:00:00 08/30/2016 23:59:59 CLS Outpatient [facility] [id number] 08/30/2016 00:00:00 08/30/2016 23:59:59 CLS Outpatient [facility] [id number] 08/28/2016 08:55:14 08/28/2016 23:59:59 CLS Outpatient [facility] [id number] 07/24/2018 10:40:00 07/24/2018 23:59:59 [facility] [id number] 03/27/2018 12:40:00 Document Registration [id number] 01/29/2018 10:00:00 Document Registration [id number] 08/01/2017 17:20:00 Document Registration [id number] 05/15/2017 15:00:00 Document Registration [id number] 07/25/2018 15:51:00 07/25/2018 17:38:00 DIS Outpatient TAMEKA KEYS, LEATHA Shah [facility] ER UNREPONSIVE [id number] 07/08/2018 07:36:00 07/08/2018 23:59:59 CLS Outpatient ARAM VAZQUEZINE E [employer] [facility] PULM ASTHMA [id number] 06/06/2018 20:00:00 06/06/2018 23:59:59 CLS Preadmit TAYLOR, NORMA E [employer] [facility] SLEEP ASTHMA, CHRONIC BRONCHITIS, HYPERSOMNIA [id number] 05/27/2018 12:11:00 05/27/2018 23:59:59 CLS Outpatient ARAM VAZQUEZINE E [employer] [facility] RT ASTHMA,CHRONIC BRONCHITIS,HYPERSOMNIA,RESTLESS LEG [id number] 05/14/2018 15:05:00 05/14/2018 23:59:59 CLS Outpatient ARAM VAZQUEZINE E [employer] [facility] LAB ASTHMA [id number] 08/02/2018 10:46:00 PEN Preadmit ARAM VAZQUEZINE E [employer] [facility] SLEEP SUSPECTED SLEEP APNEA,SLEEP DISORDER,ASTHMA [id number] 11/15/2016 10:57:02 11/15/2016 23:59:00 DIS Outpatient [facility] FNRTCL [id number] 11/15/2016 10:55:35 11/15/2016 10:56:00 DIS Outpatient [facility] [id number] 10/17/2016 14:40:55 10/17/2016 23:59:00 [id number]2016 13:39:49 09/01/2016 23:59:00 DIS Outpatient [facility] [id number] 08/28/2016 11:04:23 08/28/2016 23:59:00 DIS Outpatient [facility] [id number] 04/17/2014 17:32:00 04/17/2014 20:09:00 DIS Emergency TEDDY CAPUTO [facility] [id number] 04/17/2014 00:57:00 04/17/2014 04:03:00 DIS Emergency SAPNA [facility] FED [id number] 04/15/2014 22:57:00 04/16/2014 00:43:00 DIS Emergency [facility] [id number] 03/03/2014 09:55:30 03/03/2014 23:59:00 DIS Outpatient LIZY DAILEY [facility] FCRT [id number] 01/06/2014 15:33:14 01/06/2014 23:59:00 DIS Outpatient LIZY DAILEY [facility] [id number] 12/16/2013 00:54:23 12/16/2013 03:50:00 DIS Emergency SAPNA [facility] [id number] 11/26/2013 10:45:27 11/26/2013 23:59:00 DIS Outpatient LIZY DAILEY [facility] [id number] 10/27/2013 13:04:20 10/27/2013 23:59:00 DIS Outpatient LIZY DAILEY [facility]
[2018-08-04] MEDS ORDERED: methylPREDNISolone 125 MG (Solu-MEDROL) VIAL IVP ONE (05:30)
[2018-08-04] MEDS ORDERED: DEXAMETHASONE 4 MG/ML SDV (DECADRON) IH ONE (05:30)
[2018-08-04] MEDS ORDERED: RT-ALBUTEROL/IPRATROPIUM 3 ML (DUONEB) VIAL INH ONE (05:30)
[2018-08-04] MEDS ORDERED: RT-IPRATROPIUM (ATROVENT) 0.5MG/2.5ML AMP IH ONE (05:37)
[2018-08-04] MEDS ORDERED: RT-ALBUTEROL SULF 2.5 MG/3 ML PRE-MIX VIAL ONE (05:38)
[2018-08-04 05:40] LABS: ABG BASE EXCESS 2.7 MMOL/L (-2.5-2.5); ABG OXYGEN SATURATION 96 % (94-100); ABG PCO2 43 MMHG (35-45); ABG PH 7.41 (7.37-7.43); ABG PO2 97 MMHG (79-93); ABG TCO2 28.6 MMOL/L (21.0-31.0)
[2018-08-04 05:41] LABS: ALLENS TEST POSITIVE; INSPIRED O2 2L; PATIENT TEMP 96.3; VENTILATOR YES
[2018-08-04 05:54] LABS: BASOPHILS % (AUTO) 0 % (0-10); EOSINOPHILS # (AUTO) 0.3 10^3/uL (0.0-0.3); EOSINOPHILS % (AUTO) 3 % (0-10); HEMATOCRIT 36 % (35-52); HEMOGLOBIN 11.8 G/DL (11.5-16.0); LYMPHOCYTES # (AUTO) 2.9 X 10^3 (1.0-4.0); LYMPHOCYTES % (AUTO) 29 % (12-44); MEAN CORPUSCULAR HEMOGLOBIN 28 PG (25-34); MEAN CORPUSCULAR HGB CONC 32 G/DL (32-36); MEAN CORPUSCULAR VOLUME 87 FL (80-99); MEAN PLATELET VOLUME 8.9 FL (7.4-10.4); MONOCYTES % (AUTO) 10 % (0-12); NEUTROPHILS # (AUTO) 5.7 X 10^3 (1.8-7.8); NEUTROPHILS % (AUTO) 58 % (42-75); PLATELET COUNT 378 10^3/uL (130-400); RED CELL DISTRIBUTION WIDTH 16.2 % (10.0-14.5); WHITE BLOOD COUNT 9.9 10^3/uL (4.3-11.0)
[2018-08-04 06:12] LABS: INR 0.9 (0.8-1.4); PROTHROMBIN TIME PATIENT 11.8 SEC (12.2-14.7)
[2018-08-04 06:14] LABS: ALANINE AMINOTRANSFERASE 13 U/L (0-55); ALBUMIN 3.5 GM/DL (3.2-4.5); ALKALINE PHOSPHATASE 139 U/L (40-136); BILIRUBIN,TOTAL 0.3 MG/DL (0.1-1.0); BUN/CREATININE RATIO 19; CALCIUM 8.5 MG/DL (8.5-10.1); CARBON DIOXIDE 22 MMOL/L (21-32); CHLORIDE 102 MMOL/L (98-107); CREATINE KINASE 53 U/L (29-168); CREATININE SERUM 0.74 MG/DL (0.60-1.30); GFR ESTIMATED > 60; GLUCOSE 165 MG/DL (70-105); MAGNESIUM 2.6 MG/DL (1.8-2.4); POTASSIUM 4.6 MMOL/L (3.6-5.0); SODIUM 138 MMOL/L (135-145); TOTAL PROTEIN 6.9 GM/DL (6.4-8.2)
[2018-08-04 06:21] LABS: CREATINE KINASE MB 0.6 NG/ML (<6.6); MYOGLOBIN SERUM 80.6 NG/ML (10.0-92.0); VALPROIC ACID 27.4 UG/ML (50.0-100.0)
--- NOTE | 2018-08-04 06:33 | ED Respiratory ---
General Chief Complaint: Respiratory Problems Stated Complaint: DYSPNEA Nursing Triage Note: PT REPORTS INCREASING DYSPNEA AT REST THAT BEGAN ON SUNDAY. Source: patient, EMS History of Present Illness Date Seen by Provider: Aug 04, 2018 Time Seen by Provider: 05:40 Initial Comments PT ARRIVES VIA EMS FROM HOME C/O SHORTNESS OF BREATH FOR 4 DAYS HAS HAD A PRODUCTIVE COUGH WITH YELLOW SPUTUM HAS HAD INTERMITTENT CHEST PAIN--MOSTLY WITH COUGHING PT HAS COPD AND RESTRICTIVE LUNG DISEASE AND HAS NEBULIZER AT HOME--STATES SHE HAS USED IT 4 TIMES A DAY WITHOUT RELIEF. PT DOES NOT HAVE HOME O2 EMS REPORT THAT O2 SAT WAS 91% ON ROOM AIR NO KNOWN FEVER PT DOES NOT KNOW IF SHE HAS HAD SWELLING IN HER LEGS OR NOT. PT IS INSULIN DEPENDENT DIABETIC--ACCUCHECK WAS 161 FOR EMS. BP 176/104 FOR EMS PT SEEN HERE 07/25/18 FOR SYNCOPAL EPISODE--WORK UP ESSENTIALLY NEGATIVE THAT VISIT WAS PT'S ONLY OTHER VISIT HERE PT STATES SHE MOVED FROM [place], TO [place], THEN TO [place] IN THE LAST YEAR. PCP: [facility] [employer] INFORMATION CLERK: DR. RUIZ Allergies and Home Medications Allergies Coded Allergies: butorphanol (Unverified Adverse Reaction, Severe, 08/04/18) HALLUCINATIONS Penicillins (Unverified Adverse Reaction, Unknown, NAUSEA, 08/04/18) Uncoded Allergies: SYMBALTA (Adverse Reaction, Unknown, NAUSEA, 05/27/18) Home Medications Cephalexin 500 Mg Tablet, 500 MG PO BID Prescribed by: LEATHA ENGLISH on 07/25/18 1721 Patient Home Medication List Home Medication List Reviewed: Yes Review of Systems Review of Systems Constitutional: No chills, No diaphoresis, No fever EENTM: nose congestion Respiratory: see HPI, cough, dyspnea on exertion, phlegm, short of breath, wheezing Cardiovascular: see HPI, chest pain; No palpitations Gastrointestinal: no symptoms reported; No abdominal pain, No vomiting Genitourinary: no symptoms reported LMP: Jul 20, 2018 (S/P BTL) Musculoskeletal: no symptoms reported Skin: no symptoms reported Psychiatric/Neurological: No Symptoms Reported, Pre-Existing Deficit ( NEUROPATHY IN FEET) Hematologic/Lymphatic: No Symptoms Reported Immunological/Allergic: no symptoms reported Past Xherjzn-Xjgnej-Stvtep Hx Patient Social History Alcohol Use: Occasionally Uses 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) Drug of Choice: + IV METH USE Smoking Status: Former Smoker (1/2 PPD FROM AGE [age]) Type Used: Cigarettes Former Smoker, Quit: Jul 08, 1990 Recent Foreign Travel: No Contact w/Someone Who Travel: No Recent Infectious Disease Expo: No Recent Hopitalizations: No Immunizations Up To Date Tetanus Booster (TDap): Unknown PED Vaccines UTD: Yes Seasonal Allergies Seasonal Allergies: No Past Medical History Surgeries: Yes (BACK SURGERY FOR SCOLIOSIS AGE 15; LEFT FOOT RECONSTRUCTION BECAUSE OF PROBLEM WITH ARCH; X 2; EGD; CARDIAC ABLATION) Cardiac, Section, Gallbladder, Orthopedic, Tubal Ligation Respiratory: Yes (RESTRICTIVE LUNG DISEASE; LEFT CHEST DEFORMITY) Asthma, Pneumonia, Chronic Bronchitis, Sleep Apnea (NOT ACTUALLY TESTED YET. ), COPD Cardiac: Yes (STATES SHE HAD A "STRESS HEART ATTACK" AGE 27--NO CARDIAC CATH-- HAD STRSS TEST AND ECHO. S/P CARDIAC ABLATION FOR SVT) Coronary Artery Disease, Heart Attack, High Cholesterol, Hypertension Neurological: Yes (SEIZURES DX AGE 33; HAD POSSIBLE STROKE WITH ONE SEIZURE-- HAD LEFT SIDE PARALYSIS FOR 2 WEEKS, COMPLETELY RESOLVED NOW; HAS SUSPECTED PERIPHERAL NEUROPATHY --PAIN AND TINGLING IN BOTH FEET, BUT LEFT FOOT HAS BEEN NUMB SINCE RECONSTRUCTIVE SURGERY ON LEFT FOOT. ) Headaches /Migraines, Neuropathy, Seizure Disorder : No Last Menstrual Period: Jul 20, 2018 Reproductive Disorders: No Genitourinary: Yes UTI-Chronic Gastrointestinal: Yes Ulcer Musculoskeletal: Yes (SCOLIOSIS SURGERY AGE 15; LEFT FOOT RECONSTRUCTION FOR PROBLEM WITH ARCH; RIGHT CHEST WALL DEFORMITY; IMPAIRED MOBILITY--USES WALKER, WHEELCHAIR AND MOTORIZED WHEELCHAIR) Fibromyalgia, Scoliosis, Chronic Back Pain Endocrine: Yes (MORBID OBESITY) Diabetes, Insulin dep, Hypothyroidsim HEENT: Yes (EDENTULOUS) Cancer: No Psychosocial: Yes Anxiety, Depression Integumentary: No Blood Disorders: No Physical Exam Vital Signs - First Documented 08/04/18 05:25 Temp 96.3 Pulse 102 Resp 22 B/P (MAP) 184/121 (142) Pulse Ox 99 O2 Delivery Nasal Cannula O2 Flow Rate 2.00 Capillary Refill : Less Than 3 Seconds Height: 5'0" Weight: 320lbs. oz. 145.849901kw; 62.7 BMI Method:Stated General Appearance: moderate distress (AUDIBLE WHEEZING, MODERATE DYSPNEA), obese (MORBIDLY) HEENT: PERRL/EOMI, other (EDENTULOUS. SPEECH IMPEDIMENT) Neck: non-tender Respiratory: respiratory distress, decreased breath sounds (IN ALL LUNG BRAXTON) , accessory muscle use, wheezing Cardiovascular: regular rate, rhythm, no murmur Gastrointestinal: non tender Extremities: normal capillary refill, other (UNABLE TO DETERMINE IF EDEMA IS PRESENT DUE TO BODY HABITUS. DEFORMITY TO LEFT FOOT. TOES PINK AND WARM. 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 ), other (ANXIOUS. ) Skin: normal color, warm/dry, tattoos/piercings Focused Exam Lactate Level 08/04/18 05:46: Lactic Acid Level 2.01*H Lactic Acid Level Laboratory Tests Test 08/04/18 05:46 Lactic Acid Level 2.01 MMOL/L (0.50-2.00) *H Progress/Results/Core Measures Suspected Sepsis Recent Fever Within 48 Hours: No Infection Criteria Present: None New/Unexplained Altered Menta: No Sepsis Screen: No Definite Risk SIRS Temperature:96.3 Pulse: 102 Respiratory Rate: 22 Laboratory Tests 08/04/18 05:46: White Blood Count 9.9 Blood Pressure 184 /121 Mean: 142 08/04/18 05:46: Lactic Acid Level 2.01*H Laboratory Tests 08/04/18 05:46: Creatinine 0.74, INR Comment 0.9, Platelet Count 378, Total Bilirubin 0.3 Results/Orders Lab Results Laboratory Tests Test 08/04/18 05:29 08/04/18 05:46 08/04/18 06:12 Range/Units Blood Gas Puncture Site RT RADIAL Blood Gas Patient Temperature 96.3 Arterial Blood pH 7.41 7.37-7.43 Arterial Blood Partial Pressure CO2 43 35-45 MMHG Arterial Blood Partial Pressure O2 97 H 79-93 MMHG Arterial Blood HCO3 27 23-27 MMOL/L Arterial Blood Total CO2 28.6 21.0-31.0 MMOL/L Arterial Blood Oxygen Saturation 96 94-100 % Arterial Blood Base Excess 2.7 H -2.5-2.5 MMOL/L Jaime Test POSITIVE Blood Gas Ventilator Setting YES Blood Gas Inspired Oxygen 2L White Blood Count 9.9 4.3-11.0 10^3/uL Red Blood Count 4.18 L 4.35-5.85 10^6/uL Hemoglobin 11.8 11.5-16.0 G/DL Hematocrit 36 35-52 % Mean Corpuscular Volume 87 80-99 FL Mean Corpuscular Hemoglobin 28 25-34 PG Mean Corpuscular Hemoglobin Concent 32 32-36 G/DL Red Cell Distribution Width 16.2 H 10.0-14.5 % Platelet Count 378 130-400 10^3/uL Mean Platelet Volume 8.9 7.4-10.4 FL Neutrophils (%) (Auto) 58 42-75 % Lymphocytes (%) (Auto) 29 12-44 % Monocytes (%) (Auto) 10 0-12 % Eosinophils (%) (Auto) 3 0-10 % Basophils (%) (Auto) 0 0-10 % Neutrophils # (Auto) 5.7 1.8-7.8 X 10^3 Lymphocytes # (Auto) 2.9 1.0-4.0 X 10^3 Monocytes # (Auto) 1.0 0.0-1.0 X 10^3 Eosinophils # (Auto) 0.3 0.0-0.3 10^3/uL Basophils # (Auto) 0.0 0.0-0.1 10^3/uL Prothrombin Time 11.8 L 12.2-14.7 SEC INR Comment 0.9 0.8-1.4 Activated Partial Thromboplast Time 22 L 24-35 SEC Sodium Level 138 135-145 MMOL/L Potassium Level 4.6 3.6-5.0 MMOL/L Chloride Level 102 98-107 MMOL/L Carbon Dioxide Level 22 21-32 MMOL/L Anion Gap 14 5-14 MMOL/L Blood Urea Nitrogen 14 7-18 MG/DL Creatinine 0.74 0.60-1.30 MG/DL Estimat Glomerular Filtration Rate > 60 BUN/Creatinine Ratio 19 Glucose Level 165 H 70-105 MG/DL Lactic Acid Level 2.01 *H 0.50-2.00 MMOL/L Calcium Level 8.5 8.5-10.1 MG/DL Corrected Calcium 8.9 8.5-10.1 MG/DL Magnesium Level 2.6 H 1.8-2.4 MG/DL Total Bilirubin 0.3 0.1-1.0 MG/DL Aspartate Amino Transf (AST/SGOT) 20 5-34 U/L Alanine Aminotransferase (ALT/SGPT) 13 0-55 U/L Alkaline Phosphatase 139 H 40-136 U/L Total Creatine Kinase 53 29-168 U/L Creatine Kinase MB 0.6 <6.6 NG/ML Myoglobin 80.6 10.0-92.0 NG/ML Troponin I < 0.028 <0.028 NG/ML B-Type Natriuretic Peptide 36.8 <100.0 PG/ML Total Protein 6.9 6.4-8.2 GM/DL Albumin 3.5 3.2-4.5 GM/DL Serum Test, Qualitative NEGATIVE NEGATIVE Valproic Acid (Depakene) Level 27.4 L 50.0-100.0 UG/ML Glucometer 157 H 70-110 MG/DL Micro Results Microbiology 08/04/18 Influenza Types A,B Antigen (CAITLIN) - Final, Complete My Orders Orders - CASPER ZAFAR DO Accucheck Stat ONCE (08/04/18 05:23) Saline Lock/Iv-Start (08/04/18 05:23) Ekg Tracing (08/04/18 05:23) O2 (08/04/18 05:23) Monitor-Rhythm Ecg Trace Only (08/04/18 05:23) Arterial Blood Gas (08/04/18 05:23) BNP (08/04/18 05:23) Cbc With Automated Diff (08/04/18 05:23) Comprehensive Metabolic Panel (08/04/18 05:23) Creatine Kinase (08/04/18 05:23) Creatine Kinase Mb (08/04/18 05:23) Hcg,Qualitative Serum (08/04/18 05:23) Lactic Acid Analyzer (08/04/18 05:23) Magnesium (08/04/18 05:23) Protime With Inr (08/04/18 05:23) Partial Thromboplastin Time (08/04/18 05:23) Troponin I (08/04/18 05:23) Blood Culture (08/04/18 05:23) Influenza A And B Antigens (08/04/18 05:23) Myoglobin Serum (08/04/18 05:23) Chest 1 View, Ap/Pa Only (08/04/18 05:23) Albuterol/Ipra Inhalation Soln (Duoneb I (08/04/18 05:30) Dexamethasone Injection (Decadron Inject (08/04/18 05:30) Rt Request For Service (08/04/18 05:23) Svn Small Volume Nebulizer (08/04/18 05:23) Methylprednisolone Sod Succ (Solu-Medrol (08/04/18 05:30) Valproic Acid (08/04/18 05:28) Arterial Blood Gas (08/04/18 05:29) Ipratropium 0.02% Neb Solution (Atrovent (08/04/18 05:37) Albuterol Pre-Mix Nebs (Rt) (Proventil (08/04/18 05:38) Arterial Blood Draw (08/04/18 ) Furosemide Injection (Lasix Injection) (08/04/18 07:00) Catheter(Urinary) Insert & Ass 03,15 (08/04/18 06:48) Ceftriaxone For Iv Use (Rocephin For I (08/04/18 07:00) Medications Given in ED Current Medications Medications Dose Ordered Sig/Alex Route Start Time Stop Time Status Last Admin Dose Admin Albuterol Sulfate 2.5 mg STK-MED ONCE .ROUTE 08/04/18 05:38 08/04/18 05:43 DC 08/04/18 05:45 15 MG Ceftriaxone Sodium 1000 mg/ Sterile Water 50 ml @ 200 mls/hr ONCE ONCE IV 08/04/18 07:00 08/04/18 07:14 DC 08/04/18 07:53 200 MLS/HR Furosemide 80 mg ONCE ONCE IVP 08/04/18 07:00 08/04/18 07:01 DC 08/04/18 07:53 80 MG Ipratropium [place] 0.5 mg STK-MED ONCE IH 08/04/18 05:37 08/04/18 05:43 DC 08/04/18 05:44 0.5 MG Methylprednisolone Sodium Succinate 125 mg ONCE ONCE IVP 08/04/18 05:30 08/04/18 05:31 DC 08/04/18 05:50 125 MG Vital Signs/I&O 08/04/18 08/04/18 08/04/18 05:25 05:25 05:45 Temp 96.3 Pulse 102 Resp 22 B/P (MAP) 184/121 (142) Pulse Ox 99 100 100 O2 Delivery Nasal Cannula Non Rebreather Nasal Cannula O2 Flow Rate 2.00 2.00 Capillary Refill : Less Than 3 Seconds Blood Pressure Mean: 142 Point of Care Testing Finger Stick Blood Glucose: 157 Progress Note : Progress Note GIVEN HOUR LONG NEB TREATMENT, WITH INCREASED AERATION, DECREASED WHEEZING AND RESPIRATIONS MUCH LESS LABORED. O2 SATS REMAIN IN UPPER 90'S NO DETERIORATION IN PT'S CONDITION DURING ER STAY ECG Initial ECG Impression Date: Aug 04, 2018 Initial ECG Impression Time: 06:05 Initial ECG Rate: 102 Initial ECG Rhythm: Normal Sinus Initial ECG Impression: Normal Diagnostic Imaging Comments CXR--CARDIAC ENLARGEMENT AND VASCULAR CONGESTION INCREASED FROM PREVIOUS, PER RADIOLOGIST REPORT @ 1848 Reviewed: Reviewed by Me Departure Communication (Admissions) 0643--SPOKE WITH DR. GREENBERG, ACCEPTS PT FOR ADMIT. WILL CONSULT DR. RUIZ AND DR. LAIRD 0700-- Impression Primary Impression: COPD exacerbation Additional Impressions: CHF (congestive heart failure) Morbid obesity Disposition: ADMITTED INPATIENT Condition: Improved Admissions Decision to Admit Reason: Admit from ER (General) Decision to Admit/Date: Aug 04, 2018 Time/Decision to Admit Time: 07:00 Departure-Patient Inst. Referrals: [facility] (PCP) Primary Care Physician NATALIE SERNA (Family) Primary Care Physician CASPER ZAFAR DO Aug 04, 2018 06:33
--- NOTE | 2018-08-04 06:46 | Diagnostic Imaging Report ---
INDICATION: Shortness of air, cough and congestion x4 days. TECHNIQUE: Single view chest 5:54 AM. CORRELATION STUDY: 07/25/2018 FINDINGS: Heart size remains enlarged. Mediastinum is prominent but unchanged. Vasculature remains slightly prominent. Deformity of the right chest wall with slight asymmetric density of the right lung base unchanged. IMPRESSION: 1. Cardiac enlargement and vascular prominence appears slightly increased from prior study. Dictated by: Dictated on workstation # [id number]
[2018-08-04] MEDS ORDERED: cefTRIAXone FOR IV USE 1,000 MG in WATER (STERILE) FOR INJECTION 50 ML IV ONE (07:00)
[2018-08-04] MEDS ORDERED: FUROSEMIDE 40 MG/4 ML INJ (LASIX) IVP ONE (07:00)
--- NOTE | 2018-08-04 07:00 | NUR ---
REPORT GIVEN TO TOM ANDERSON
[2018-08-04] MEDS ORDERED: NS (IVPB) 50 ML ONE (07:43)
[2018-08-04] MEDS ORDERED: cefTRIAXone 1,000 MG IV (ROCEPHIN) VIAL ONE (07:43)
--- OUTSIDE RECORDS SUMMARY | 2018-08-04 08:27 | XMS REPORT | Continuity of Care Document ---
Author Author [facility] Organization [facility] Address Unknown Phone Unavailable Allergies Active Description [...] Class N/A N/A 01/29/2011 Yes DULOXETINE HCL 49181 DRUG N/A N/A 11/01/2011 Yes DULOXETINE HCL 25997 DRUG N/A Other 11/01/2011 11/01/2011 Yes GABAPENTIN 57987 DRUG INGREDI N /A N/A 11/01/2011 Yes OXCARBAZEPINE 16838 DRUG INGREDI Med Hives 11/01/2011 Yes ZIPRASIDONE 65676 DRUG INGREDI N/A N/A 11/01/2011 Yes TRAMADOL 59725 DRUG INGREDI N/ A Itching~Nausea 03/07/2017 03/07/2017 Yes penicillin NKMA N/A UNKNOWN AT THIS TIME 08/15/2017 Yes Stadol NKMA N/A UKNOWN AT THIS TIME 08/15/2017 Yes penicillin NKMA N/A N/V, FEVER 08/16/2017 Yes butorphanol [id number] Drug Allergy Severe N/A 05/27/2018 Yes Penicillins [id number] Drug Allergy Unknown NAUSEA 05/27/2018 Yes SYMBALTA [...] Body mass index (bmi) 50-59.9 , adult ([facility]) 09/01/2016 PUJA CUELLAR WORKING R60.0 Localized edema 10/16/2016 V 763475 Insect Bite 10/17/2016 PUJA CUELLAR WORKING E03.9 [...] tissue disorders 12/12/2016 DEVADER, ABDULKADIR E V 852614 Chest Pain DEVADER, ABDULKADIR E 12/12/2016 DEVADER, ABDULKADIR E V I10 Essential (primary) hypertension DEVADER, ABDULKADIR E 12/12/2016 DEVADER, ABDULKADIR E V R07.9 Chest pain, unspecified DEVADER, ABDULKADIR E 01/03/2017 NATALIE MILES V R07.9 Chest pain, unspecified LEXNATALIE CAMPO P 02/19/2017 INGRAMANN OSMAN M V I10 Essential (primary) hypertension ANN INGRAM M 02/19/2017 ADORE INGRAMAH M V R06.02 Shortness of breath INGRAM, NAN Gutierrez 02/19/2017 INGRAM, ANN Gutierrez V R53.83 [...] 60.0-69.9, adult 08/21/2017 House Shawn Final Z79.84 care home (current) use of oral hypoglycemic drugs 08/21/2017 [...] LEFT FOOT, INITIAL ENCOUNTER 05/16/2018 NORMA VAZQUEZ COUNTERINTELLIGENCE/HUMINT SPECIALIST Ot G25.81 RESTLESS LEGS SYNDROME 05/16/2018 NORAM VAZQUEZ COUNTERINTELLIGENCE/HUMINT SPECIALIST Ot G47.10 HYPERSOMNIA, UNSPECIFIED 05/16/2018 NORMA VAZQUEZ COUNTERINTELLIGENCE/HUMINT SPECIALIST Ot J42 UNSPECIFIED CHRONIC BRONCHITIS 05/16/2018 NORMA VAZQUEZ COUNTERINTELLIGENCE/HUMINT SPECIALIST Ot J45.909 UNSPECIFIED ASTHMA, UNCOMPLICATED 05/27/2018 NORMA VAZQUEZ COUNTERINTELLIGENCE/HUMINT SPECIALIST Ot G25.81 RESTLESS LEGS SYNDROME 05/27/2018 NORMA VAZQUEZ E COUNTERINTELLIGENCE/HUMINT SPECIALIST Ot G47.10 HYPERSOMNIA, UNSPECIFIED 05/27/2018 NORMA VAZQUEZ COUNTERINTELLIGENCE/HUMINT SPECIALIST Ot J42 UNSPECIFIED CHRONIC BRONCHITIS 05/27/2018 NORMA VAZQUEZ COUNTERINTELLIGENCE/HUMINT SPECIALIST Ot J45.909 UNSPECIFIED ASTHMA, UNCOMPLICATED 05/28/2018 NORMA VAZQUEZ COUNTERINTELLIGENCE/HUMINT SPECIALIST Ot G25.81 RESTLESS LEGS SYNDROME 05/28/2018 NORMA VAZQUEZ COUNTERINTELLIGENCE/HUMINT SPECIALIST Ot G47.10 HYPERSOMNIA, UNSPECIFIED 05/28/2018 NORMA VAZQUEZ E COUNTERINTELLIGENCE/HUMINT SPECIALIST Ot J42 UNSPECIFIED CHRONIC BRONCHITIS 05/28/2018 NORMA VAZQUEZ E COUNTERINTELLIGENCE/HUMINT SPECIALIST Ot J45.909 UNSPECIFIED ASTHMA, UNCOMPLICATED 05/31/2018 TAYLOR, NORMA E COUNTERINTELLIGENCE/HUMINT SPECIALIST Ot G25.81 RESTLESS LEGS SYNDROME 05/31/2018 TAYLOR, NORMA E COUNTERINTELLIGENCE/HUMINT SPECIALIST Ot G47.10 HYPERSOMNIA, UNSPECIFIED 05/31/2018 TAYLORARAMNORMA E COUNTERINTELLIGENCE/HUMINT SPECIALIST Ot J42 UNSPECIFIED CHRONIC BRONCHITIS 05/31/2018 TAYLORARAM SORENSONINE E COUNTERINTELLIGENCE/HUMINT SPECIALIST Ot J45.909 UNSPECIFIED ASTHMA, UNCOMPLICATED 06/17/2018 TAYLOR, NORMA E COUNTERINTELLIGENCE/HUMINT SPECIALIST Ot G25.81 RESTLESS LEGS SYNDROME 06/17/2018 TAYLOR, NORMA E COUNTERINTELLIGENCE/HUMINT SPECIALIST Ot G47.10 HYPERSOMNIA, UNSPECIFIED 06/17/2018 TAYLOR, NORMA E COUNTERINTELLIGENCE/HUMINT SPECIALIST Ot J42 UNSPECIFIED CHRONIC BRONCHITIS 06/17/2018 TAYLOR, NORMA E COUNTERINTELLIGENCE/HUMINT SPECIALIST Ot J45.909 UNSPECIFIED ASTHMA, UNCOMPLICATED 07/08/2018 TAYLORARAM SORENSONINE E COUNTERINTELLIGENCE/HUMINT SPECIALIST Ot G25.81 RESTLESS LEGS SYNDROME 07/08/2018 TAYLORARAM SORENSONINE E COUNTERINTELLIGENCE/HUMINT SPECIALIST Ot G47.10 HYPERSOMNIA, UNSPECIFIED 07/08/2018 TAYLOR, NORMA E COUNTERINTELLIGENCE/HUMINT SPECIALIST Ot J42 UNSPECIFIED CHRONIC BRONCHITIS 07/08/2018 TAYLOR, NORMA E COUNTERINTELLIGENCE/HUMINT SPECIALIST Ot J45.909 UNSPECIFIED ASTHMA, UNCOMPLICATED 07/08/2018 TAYLORARAM SORENSONINE E COUNTERINTELLIGENCE/HUMINT SPECIALIST Ot G25.81 RESTLESS LEGS SYNDROME 07/08/2018 TAYLOR, NORMA E COUNTERINTELLIGENCE/HUMINT SPECIALIST Ot G47.10 HYPERSOMNIA, UNSPECIFIED 07/08/2018 TAYLORARAM SORENSONINE E COUNTERINTELLIGENCE/HUMINT SPECIALIST Ot J42 UNSPECIFIED CHRONIC BRONCHITIS 07/08/2018 ARAM VAZQUEZINE E COUNTERINTELLIGENCE/HUMINT SPECIALIST Ot J45.909 UNSPECIFIED ASTHMA, UNCOMPLICATED 07/29/2018 TAMEKA [...] Procedures Code Description [place] [address] Arthrodesis, midtarsal or tarsometatarsal, single joint.. 08/16/2017 [...] RED CELL DISTRIBUTION WIDTH 14.6 % 11.9-15.5 1948600 6.7 10E9/L 3.5-10.5 7479629 2.68 10E9/L 0.90-2.90 1021783 0.62 10E9/L 0.30-0.90 8447832 0.19 10E9/L 0.05-0.50 2037494 3.17 10E9/L 1.70-7.00 6483625 0.04 10E9/L 0.00-0.30 0599629 0 % PT T APTT - 12/12/16 [...] RED CELL DISTRIBUTION WIDTH 14.7 % 11.9-15.5 3649286 8.8 10E9/L 3.5-10.5 9579513 3.46 10E9/L 0.90-2.90 7141919 0.78 10E9/L 0.30-0.90 6234528 0.37 10E9/L 0.05-0.50 6208157 4.09 10E9/L 1.70-7.00 6882495 0.07 10E9/L 0.00-0.30 1121000 0 % IRON SATURATION - 12/20/16 14:16 [...] RED CELL DISTRIBUTION WIDTH 14.1 % 11.9-15.5 5725835 8.5 10E9/L 3.5-10.5 7476637 2.60 10E9/L 0.90-2.90 1717493 0.64 10E9/L 0.30-0.90 6692007 0.17 10E9/L 0.05-0.50 3706183 5.06 10E9/L 1.70-7.00 7788575 0.02 10E9/L 0.00-0.30 4391586 0 % COMPREHENSIVE METABOLIC PANEL - 02/05/17 [...] 7-25 CREATININE 0.74 mg/dL 0.50-1.10 eGFR NON-AFR. BHUTANESE 98 mL/min/1.73m2 > OR=60 eGFR 113 mL/min/1.73m2 [...] 9.2 fL 7.5-12.5 ABSOLUTE NEUTROPHILS 3809 cells/uL 9864-6850 ABSOLUTE LYMPHOCYTES 4050 cells/uL 850-3900 ABSOLUTE MONOCYTES [...] 5-8.5 Urine-Protein Negative Negative Urine-RBC Negative Urine-Specific [place] 1.010 1.000-1.030 Urine-WBC Rare/HPF Urobilinogen 0.2 0.2-1.0 [...] 15:58 THYROID STIMULATING HORMONE 6.78 u[iU]/mL 0.35-4.94 [id number] - 07/25/18 15:58 [id number] 45.9 ug/mL 50.0-100.0 Complete urinalysis with reflex [...] culture - 07/25/18 16:03 Bacterial urine culture [id number] NRG COLONY COUNT >100,000/ML NRG FTX;REPORTABLE SUSCEPTIBILITY [...] Status Pt. Type Provider Facility Loc./Unit Complaint [id number] 04/06/2017 15:40:18 04/06/2017 23:59:59 [facility] Outpatient [place] [id number] 04/06/2017 15:38:43 04/06/2017 23:59:59 [facility] Outpatient [place] [address] [id number] 04/06/2017 15:10:13 04/06/2017 23:59:59 [facility] Outpatient ANN INGRAM [place] [address] [id number] 03/07/2017 11:27:38 03/07/2017 23:59:59 [id number] 12:56:06 02/19/2017 23:59:00 [id number]18[facility]2017 22:08:39 02/19/2017 00:03:00 DIS Emergency TOM PEREZ [facility] [id number] 02/15/2017 12:43:26 02/15/2017 23:59:59 [facility] Outpatient [facility] CODE [id number] 02/05/2017 20:36:04 02/05/2017 22:21:00 DIS Emergency WILLIS SCHAFFER [facility] [id number] 01/25/2017 13:49:36 01/25/2017 23:59:59 CLS Outpatient NATALIE MILES [place] [address] [id number] 01/12/2017 18:47:23 01/12/2017 19:33:00 DIS Emergency BRENT BRAVO [facility] [id number] 01/03/2017 07:56:04 01/03/2017 23:59:00 DIS Outpatient NATALIE MILES [facility] [id number] 12/20/2016 14:06:48 12/20/2016 23:59:59 CLS Outpatient [facility] 823 [id number] 12/20/2016 12:32:09 12/20/2016 23:59:59 CLS Outpatient ANN INGRAM [facility] 823 [id number] 12/12/2016 19:17:11 12/12/2016 21:07:00 DIS Emergency ABDULKADIR JAVED [facility] EMD [id number] 12/01/2016 14:40:35 12/01/2016 23:59:59 CLS Outpatient BOB SCOTT [facility] 823 [id number] 10/16/2016 15:36:13 10/16/2016 15:37:00 DIS Emergency [facility] EMD [id number] 08/21/2016 09:57:38 08/21/2016 23:59:59 CLS Outpatient [facility] 901 [id number] 02/09/2017 12:57:29 Document Registration [id number] 12/12/2016 19:21:19 Document Registration [id number] 08/16/2017 07:04:00 08/16/2017 13:59:00 DIS Outpatient House Shawn [facility] [place] [facility] F3E 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 [id number] 08/17/2017 05:17:23 Document Registration [id number] 08/16/2017 05:17:12 Document Registration [id number] 08/16/2017 05:17:11 Document Registration [id number] 11/13/2017 15:18:00 11/13/2017 16:15:00 DIS Emergency RL DORSEY [facility] ED ED Visit [id number] 03/21/2018 15:27:00 03/21/2018 16:39:00 [id number] 02/27/2018 16:44:00 02/27/2018 18:25:00 [id number] 02/19/2018 16:27:00 02/19/2018 20:16:00 [id number] 02/11/2018 00:14:00 02/11/2018 03:00:00 [facility] [id number] 02/11/2018 01:59:50 Document Registration [id number] 02/13/2017 12:26:24 Document Registration [id number] 11/15/2016 12:52:43 Document Registration [id number] 10/17/2016 13:27:32 Document Registration [id number] 08/28/2016 08:55:14 Document Registration [id number] 11/23/2016 21:41:59 ACT Document Registration [id number] 08/07/2017 10:47:00 Document Registration [id number] 11/15/2016 10:01:07 11/15/2016 23:59:59 CLS Outpatient [facility] [id number] 11/14/2016 00:00:00 11/14/2016 23:59:59 CLS Outpatient [facility] [id number] 10/17/2016 13:27:32 10/17/2016 23:59:59 CLS Outpatient [facility] [id number] 09/05/2016 00:00:00 09/05/2016 23:59:59 CLS Outpatient [facility] [id number] 09/05/2016 00:00:00 09/05/2016 23:59:59 CLS Outpatient [facility] [id number] 08/30/2016 00:00:00 08/30/2016 23:59:59 CLS Outpatient [facility] [id number] 08/30/2016 00:00:00 08/30/2016 23:59:59 CLS Outpatient [facility] [id number] 08/28/2016 08:55:14 08/28/2016 23:59:59 CLS Outpatient [facility] [id number] 07/24/2018 10:40:00 07/24/2018 23:59:59 CLS Outpatient [facility] [id number] 03/27/2018 12:40:00 Document Registration [id number] 01/29/2018 10:00:00 Document Registration [id number] 08/01/2017 17:20:00 Document Registration [id number] 05/15/2017 15:00:00 Document Registration [id number] 07/25/2018 15:51:00 07/25/2018 17:38:00 DIS Outpatient TAMEKA KEYS, LEATHA Shah [facility] ER UNREPONSIVE [id number] 07/08/2018 07:36:00 07/08/2018 23:59:59 CLS Outpatient ARAM VAZQUEZINE E COUNTERINTELLIGENCE/HUMINT SPECIALIST [facility] PULM ASTHMA [id number] 06/06/2018 20:00:00 06/06/2018 23:59:59 CLS Preadmit TAYLOR, NORMA E COUNTERINTELLIGENCE/HUMINT SPECIALIST [facility] SLEEP ASTHMA, CHRONIC BRONCHITIS, HYPERSOMNIA [id number] 05/27/2018 12:11:00 05/27/2018 23:59:59 CLS Outpatient ARAM VAZQUEZINE E COUNTERINTELLIGENCE/HUMINT SPECIALIST [facility] RT ASTHMA,CHRONIC BRONCHITIS,HYPERSOMNIA,RESTLESS LEG [id number] 05/14/2018 15:05:00 05/14/2018 23:59:59 CLS Outpatient ARAM VAZQUEZINE E COUNTERINTELLIGENCE/HUMINT SPECIALIST [facility] LAB ASTHMA [id number] 08/02/2018 10:46:00 PEN Preadmit ARAM VAZQUEZINE E COUNTERINTELLIGENCE/HUMINT SPECIALIST [facility] SLEEP SUSPECTED SLEEP APNEA,SLEEP DISORDER,ASTHMA [id number] 11/15/2016 10:57:02 11/15/2016 23:59:00 DIS Outpatient [facility] FNRTCL [id number] 11/15/2016 10:55:35 11/15/2016 10:56:00 DIS Outpatient [facility] [id number] 10/17/2016 14:40:55 10/17/2016 23:59:00 [id number]2016 13:39:49 09/01/2016 23:59:00 DIS Outpatient [facility] [id number] 08/28/2016 11:04:23 08/28/2016 23:59:00 DIS Outpatient [facility] [id number] 04/17/2014 17:32:00 04/17/2014 20:09:00 DIS Emergency TEDDY CAPUTO [facility] [id number] 04/17/2014 00:57:00 04/17/2014 04:03:00 DIS Emergency SAP[facility] [id number] 04/15/2014 22:57:00 04/16/2014 00:43:00 DIS Emergency [facility] [id number] 03/03/2014 09:55:30 03/03/2014 23:59:00 DIS Outpatient LIZY DAILEY [facility] FCRT [id number] 01/06/2014 15:33:14 01/06/2014 23:59:00 DIS Outpatient LIZY DAILEY [facility] [id number] 12/16/2013 00:54:23 12/16/2013 03:50:00 DIS Emergency SAPNA [facility] [id number] 11/26/2013 10:45:27 11/26/2013 23:59:00 DIS Outpatient LIZY DAILEY [facility] [id number] 10/27/2013 13:04:20 10/27/2013 23:59:00 DIS Outpatient LIZY DAILEY [facility]
[2018-08-04 08:49] LABS: BILIRUBIN,URINE NEGATIVE (NEGATIVE); CLARITY,URINE CLEAR; COLOR,URINE YELLOW; GLUCOSE, URINE (UA) NEGATIVE (NEGATIVE); KETONES,URINE 1+ (NEGATIVE); LEUKOCYTE ESTERASE ,URINE NEGATIVE (NEGATIVE); NITRITE,URINE NEGATIVE (NEGATIVE); PH,URINE 6 (5-9); PROTEIN,URINE NEGATIVE (NEGATIVE); UROBILINOGEN,URINE NORMAL (NORMAL)
[2018-08-04 09:00] LABS: AMPHETAMINE SCREEN, URINE NEGATIVE (NEGATIVE); BENZODIAZEPINES SCREEN URINE NEGATIVE (NEGATIVE); CANNABINOID SCREEN, URINE NEGATIVE (NEGATIVE); COCAINE SCREEN URINE NEGATIVE (NEGATIVE); METHAMPHETAMINE SCREEN URINE S NEGATIVE (NEGATIVE); OPIATE SCREEN URINE NEGATIVE (NEGATIVE)
[2018-08-04 09:01] LABS: BARBITURATE SCREEN URINE NEGATIVE (NEGATIVE); METHADONE STAT NEGATIVE (NEGATIVE); OXYCODONE STAT NEGATIVE (NEGATIVE); PROPOXYPHENE STAT NEGATIVE (NEGATIVE); TRICYCLIC ANTIDEPRESSANTS SCRE NEGATIVE (NEGATIVE)
[2018-08-04 09:03] LABS: BACTERIA,URINE NEGATIVE /HPF
[2018-08-04] MEDS ORDERED: ACETAMINOPHEN 500 MG TAB (TYLENOL) PO PRN ×2 (09:30→12:15)
[2018-08-04] MEDS ORDERED: CATHETER FLUSH 10 ML SYR IV PRN ×2 (09:30→16:00)
[2018-08-04] MEDS ORDERED: AZITHROMYCIN 500 MG/NS 250 ML IVPB IV NR ×2 (09:30)
--- NOTE | 2018-08-04 10:43 | Pulmonary Consultation ---
History of Present Illness History of Present Illness Date of Consultation 08/04/18 10:38 Time Seen by Provider: 10:38 Date of Admission History of Present Illness 48yo with recent hospitalization secondary to syncope and hx of COPD, and RLD presented to ED via EMS secondary to worsening SOB, intermittent pleuritic CP and productive cough of yellow sputum onset was on . Sp02 was 91% upon EMS arrival. Pt does not have home 02. Denies fever, n/v. I am consulted for pulmonary management. Allergies and Home Medications Allergies Coded Allergies: butorphanol (Unverified Adverse Reaction, Severe, 08/04/18) HALLUCINATIONS Penicillins (Unverified Adverse Reaction, Unknown, NAUSEA, 08/04/18) Uncoded Allergies: SYMBALTA (Adverse Reaction, Unknown, NAUSEA, 05/27/18) Home Medications Cephalexin 500 Mg Tablet, 500 MG PO BID Prescribed by: LEATHA ENGLISH on 07/25/18 1721 Past Tqybyfy-Djegvb-Advkqn Hx Patient Social History Alcohol Use: Occasionally Uses 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) Drug of Choice: + IV METH USE Smoking Status: Former Smoker (1/2 PPD FROM AGE [age]) Type Used: Cigarettes Former Smoker, Quit: Jul 08, 1990 Recent Foreign Travel: No Contact w/Someone Who Travel: No Recent Infectious Disease Expo: No Recent Hopitalizations: No Immunizations Up To Date Tetanus Booster (TDap): Unknown PED Vaccines UTD: Yes Date of Influenza Vaccine: Jul 25, 2018 Seasonal Allergies Seasonal Allergies: No Past Medical History Surgeries: Yes (BACK SURGERY FOR SCOLIOSIS AGE 15; LEFT FOOT RECONSTRUCTION BECAUSE OF PROBLEM WITH ARCH; X 2; EGD; CARDIAC ABLATION) Cardiac, Section, Gallbladder, Orthopedic, Tubal Ligation Respiratory: Yes (RESTRICTIVE LUNG DISEASE; LEFT CHEST DEFORMITY) Asthma, Pneumonia, Chronic Bronchitis, Sleep Apnea (NOT ACTUALLY TESTED YET. ), COPD Cardiac: Yes (STATES SHE HAD A "STRESS HEART ATTACK" AGE 27--NO CARDIAC CATH-- HAD STRSS TEST AND ECHO. S/P CARDIAC ABLATION FOR SVT) Coronary Artery Disease, Heart Attack, High Cholesterol, Hypertension Neurological: Yes (SEIZURES DX AGE 33; HAD POSSIBLE STROKE WITH ONE SEIZURE-- HAD LEFT SIDE PARALYSIS FOR 2 WEEKS, COMPLETELY RESOLVED NOW; HAS SUSPECTED PERIPHERAL NEUROPATHY --PAIN AND TINGLING IN BOTH FEET, BUT LEFT FOOT HAS BEEN NUMB SINCE RECONSTRUCTIVE SURGERY ON LEFT FOOT. ) Headaches /Migraines, Neuropathy, Seizure Disorder : No Last Menstrual Period: Jul 20, 2018 Reproductive Disorders: No Genitourinary: Yes UTI-Chronic Gastrointestinal: Yes Ulcer Musculoskeletal: Yes (SCOLIOSIS SURGERY AGE 15; LEFT FOOT RECONSTRUCTION FOR PROBLEM WITH ARCH; RIGHT CHEST WALL DEFORMITY; IMPAIRED MOBILITY--USES WALKER, WHEELCHAIR AND MOTORIZED WHEELCHAIR) Fibromyalgia, Scoliosis, Chronic Back Pain Endocrine: Yes (MORBID OBESITY) Diabetes, Insulin dep, Hypothyroidsim HEENT: Yes (EDENTULOUS) Cancer: No Psychosocial: Yes Anxiety, Depression Integumentary: No Blood Disorders: No Sepsis Event Evaluation Height, Weight, BMI Height: 5'0.00" Weight: 331lbs. 5.0oz. 150.466747wz; 62.7 BMI Method:Stated Exam Exam Vital Signs Date Time Temp Pulse Resp B/P (MAP) Pulse Ox O2 Delivery O2 Flow Rate FiO2 08/04/18 08:55 101 20 138/85 (102) 98 Nasal Cannula 2.00 08/04/18 05:45 100 Nasal Cannula 2.00 08/04/18 05:25 96.3 102 22 184/121 (142) 100 Non Rebreather 08/04/18 05:25 99 Nasal Cannula 2.00 I & O 08/04/18 07:00 Intake Total 150 ml Balance 150 ml Height & Weight Height: 5'0.00" Weight: 331lbs. 5.0oz. 150.236377xm; 62.7 BMI Method:Stated Capillary Refill: Less Than 3 Seconds Gastrointestinal: non tender Results Lab Laboratory Tests 08/04/18 05:46 Assessment/Plan Assessment/Plan Dyspnea secondary RLD with asthma and hypoxia -SVNS Q4 -Check CTA of chest -Add singulair, claritin Metabolic lactic acidosis -IVF add LR at 100cc/hr and monitor Morbid obesity with probable MARIA ISABEL IDALIA ROBLES DO Aug 04, 2018 10:43
[2018-08-04] MEDS ORDERED: RT-ALBUTEROL/IPRATROPIUM 3 ML (DUONEB) VIAL INH PRN (10:45)
[2018-08-04] MEDS: inSUlin ASPART (NovoLOG) 1 UNIT/0.01 ML (CHARGE PER UNIT) SC SCH ×3 (10:54→22:19)
[2018-08-04] MEDS ORDERED: methylPREDNISolone 125 MG (Solu-MEDROL) VIAL IV SCH (12:00)
--- NOTE | 2018-08-04 12:05 | History & Physical-Hospitalist ---
History of Present Illness HPI/Chief Complaint CC: Dyspnea HPI: This is a 48-year-old white female with BMI of 64 who sees [facility] and Dr. 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 Patient reports this is gradually worsened over the last few days found to have exacerbation of asthma and Dr. Mosqueda's been consulted added Singulair and IV steroids and check CT angiogram of the chest. She reports she has a migraine and once Imitrex about was ordered and she is having a cough so I initiated cough syrup for her. She uses nebulizer treatments at home. Denies any use of oxygen. Has not had a sleep study. Reports the sleep study is not paid by her insurance. Source: patient, RN/MD Exam Limitations: no limitations Date Seen 08/04/18 Time Seen by a Provider: 11:15 Attending Physician Carmen Greenberg DO [facility] Referring Physician Date of Admission Aug 04, 2018 at 07:00 Home Medications & Allergies Home Medications Reviewed patient Home Medication Reconciliation performed by pharmacy medication reconciliations industrial maintenance technician and/or nursing. Patients Allergies have been reviewed. Allergies Allergies Coded Allergies butorphanol (Unverified Adverse Reaction, Severe, 08/04/18) HALLUCINATIONS Penicillins (Unverified Adverse Reaction, Unknown, NAUSEA, 08/04/18) Uncoded Allergies SYMBALTA ( Adverse Reaction, Unknown, NAUSEA, 05/27/18) Past Bqjhswe-Ncnqjc-Ohksdv Hx Past Med/Social Hx: Reviewed Nursing Past Med/Soc Hx, Reviewed and Corrections made Patient Social History Employed/Student: unemployed Alcohol Use: Occasionally Uses 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) Drug of Choice: + IV METH USE Smoking Status: Former Smoker (1/2 PPD FROM AGE [age]) Former Smoker, Quit: Jul 08, 1990 Type Used: Cigarettes Recent Foreign Travel: No Contact w/other who traveled: No Recent Hopitalizations: No Recent Infectious Disease Expo: No Immunizations Up To Date Tetanus Booster (TDap): Unknown Pediatric: Yes Date of Influenza Vaccine: Jul 25, 2018 Seasonal Allergies Seasonal Allergies: No Past Medical History Surgeries: Cardiac, Section, Gallbladder, Orthopedic, Tubal Ligation Respiratory: Asthma, Sleep Apnea Currently Using CPAP: No Currently Using BIPAP: No Cardiac: Coronary Artery Disease, Heart Attack, High Cholesterol, Hypertension Neurological: Headaches /Migraines, Neuropathy, Seizure Disorder : No Reproductive: No Genitourinary: UTI-Chronic Gastrointestinal: Ulcer Musculoskeletal: Fibromyalgia, Scoliosis, Chronic Back Pain Endocrine: Diabetes, Insulin dep, Hypothyroidsim Psychosocial: Anxiety, Depression History of Blood Disorders: No Review of Systems Constitutional: see HPI EENTM: no symptoms reported Respiratory: cough, dyspnea on exertion, short of breath, wheezing Cardiovascular: no symptoms reported Gastrointestinal: no symptoms reported Genitourinary: no symptoms reported Musculoskeletal: no symptoms reported Psychiatric/Neurological: Headache Physical Exam Physical Exam Vital Signs Vital Signs - First Documented 08/04/18 08/04/18 05:25 10:37 Temp 96.3 Pulse 102 Resp 22 B/P (MAP) 184/121 (142) Pulse Ox 99 O2 Delivery Nasal Cannula O2 Flow Rate 2.00 FiO2 28 Capillary Refill : Less Than 3 Seconds Height, Weight, BMI Height: 5'0.00" Weight: 331lbs. 3.0oz. 150.156033at; 64.7 BMI Method:Stated General Appearance: WD/WN, Chronically ill, Mild Distress, Obese Eyes: Bilateral Eye Normal Inspection, Bilateral Eye PERRL HEENT: PERRL/EOMI, Normal ENT Inspection, Pharynx Normal Neck: Full Range of Motion, Normal Inspection, Non Tender, Supple, Carotid Bruit Respiratory: Chest Non Tender, No Respiratory Distress, Accessory Muscle Use, Crackles, Decreased Breath Sounds, Wheezing Cardiovascular: Regular Rate, Rhythm, No Edema, No Gallop, No JVD, No Murmur, Normal Peripheral Pulses Gastrointestinal: Normal Bowel Sounds, No Organomegaly, No Pulsatile Mass, Non Tender, Soft Back: Normal Inspection, No CVA Tenderness, No Vertebral Tenderness Extremity: Normal Capillary Refill, Normal Inspection, Normal Range of Motion, Non Tender, No Calf Tenderness, No Pedal Edema Neurologic/Psychiatric: Alert, Oriented x3, No Motor/Sensory Deficits, Normal Mood/Affect Skin: Normal Color, Warm/Dry Lymphatic: No Adenopathy Results Results/Procedures Labs Laboratory Tests 08/04/18 05:46 Patient resulted labs reviewed. Assessment/Plan Admission Diagnosis Assessment: Acute exacerbation of asthma Presumed severe obstructive sleep apnea Obesity hypoventilation syndrome presumed Migraine with acute headache currently Cough Plan: IV steroids Nebs Check ECHO Appreciate Dr Pineda and Dr Mosqueda Admission Status: Inpatient Order (span 2 midnights) Reason for Inpatient Admission: Severe asthma and severe obstructive sleep apnea but will require 3 days of hospital stay Diagnosis/Problems Diagnosis/Problems (1) COPD exacerbation Status: Acute (2) Obesity hypoventilation syndrome Status: Chronic (3) Migraine Status: Chronic Qualifiers: Migraine type: unspecified Status migrainosus presence: without status migrainosus Intractability: not intractable Qualified Codes: G43.909 - Migraine, unspecified, not intractable, without status migrainosus (4) Cough Status: Acute (5) CHF (congestive heart failure) Status: Acute Qualifiers: Heart failure type: unspecified Heart failure chronicity: unspecified Qualified Codes: I50.9 - Heart failure, unspecified (6) Morbid obesity Status: Chronic Clinical Quality Measures DVT/VTE Risk/Contraindication: Risk Factor Score Per Nursin RFS Level Per Nursing on Admit: 4+=Very High CARMEN GREENBERG DO Aug 04, 2018 12:05
[2018-08-04] MEDS ORDERED: CALCIUM CARBONATE 500 MG (TUMS) TAB.CHEW PO PRN (12:15)
[2018-08-04] MEDS ORDERED: ALPRAZolam 0.25 MG (XANAX) TAB PO PRN (12:15)
[2018-08-04] MEDS ORDERED: inSUlin DETERMIR 1 UNIT/0.01 ML (LEVEMIR) CHARGE PER UNIT SQ NR (12:15)
[2018-08-04] MEDS ORDERED: SUMAtriptan 50 MG (IMITREX) TAB PO NR (12:15)
[2018-08-04] MEDS ORDERED: MELATONIN 3 MG TABLET PO PRN (12:15)
[2018-08-04] MEDS ORDERED: ONDANSETRON 4 MG/2 ML (SDV) Z0FRAN IVP PRN (12:15)
[2018-08-04] MEDS ORDERED: diphenhydrAMINE 25 MG TAB (BENADRYL) PO PRN (12:15)
[2018-08-04] MEDS ORDERED: IBUPROFEN TABLET 200 MG TAB PO PRN (12:15)
[2018-08-04] MEDS: HYDROCODONE/CHLOR 10MG/5 ML (TUSSIONEX SUSP) 5ML UDC PO SCH ×2 (13:04→22:20)
[2018-08-04] MEDS: LACTATED RINGERS 1,000 ML IV SCH (13:05)
[2018-08-04] MEDS: methylPREDNISolone 40 MG/ML (Solu-MEDROL) VIAL IV SCH ×2 (13:05→18:17)
[2018-08-04] MEDS: CATHETER FLUSH 10 ML SYR IV SCH ×2 (13:40→22:25)
--- NOTE | 2018-08-04 13:48 | Consultation-Cardiology ---
HPI-Cardiology Cardiology Consultation: Date of Consultation 08/04/18 Time Seen by a Provider: 13:10 Date of Admission Attending Physician Carmen Strange DO Admitting Physician [place] Consulting Physician JESSICA LAIRD MD, MA, FACP, FACC, [facility] [place], [place], [facility] Physician requesting consult: Dr Strange HPI: Chief Complaint: CC: Chest discomfort, shortness of breath HPI: 48 yo woman who awoke at around 4 am with a feeling of shortness of breath and chest discomfort. Chest discomfort: L parasternal, non-pleuritic, mod, sharp, nonradiating, not associated with symptoms other than shortness of breath, lasting an hour or two, self-resolving, w/o recurrence, not experienced before. Does wake up from sleep with shortness of breath, from time to time. has noted loud snoring and apneic spells lasting several seconds. Has chronic intermittent leg swelling. Denies palp or syncope Review of Systems-Cardiology Review of Systems Constitutional: malaise, tiredness; No weight loss, No weight gain Eyes: No vision change Ears/Nose/Throat: No ear discharge, No nasal drainage, No recent hearing loss Respiratory: As described under HPI Cardiovascular: As described under HPI Gastrointestinal: No diarrhea, No nausea, No other Genitourinary: No dysuria, No hematuria, No urine frequency changes LMP: Jul 20, 2018 (S/P BTL) Musculoskeletal: back pain (chronic) Skin: No rash, No ulcerations Psychiatric/Neurological: No seizure, No focal weakness Hematologic: No bleeding abnormalities [id number]-Iddyys Hx Patient Social History Employed/Student: unemployed Alcohol Use: Occasionally Uses 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) Drug of Choice: + IV METH USE Smoking Status: Former Smoker (1/2 PPD FROM AGE [age]) Type Used: Cigarettes Recent Foreign Travel: No Recent Infectious Disease Expo: No Hospitalization with Isolation: Denies Immunizations Up To Date Tetanus Booster (TDap): Unknown Date of Influenza Vaccine: Jul 25, 2018 Past Medical History PMH As described under Assessment. Family Medical History Family Medical History: States mother had CHF in her mid to late 50s and in her early 70s Allergies and Home Medications Allergies Coded Allergies: butorphanol (Unverified Adverse Reaction, Severe, 08/04/18) HALLUCINATIONS Penicillins (Unverified Adverse Reaction, Unknown, NAUSEA, 08/04/18) Uncoded Allergies: SYMBALTA (Adverse Reaction, Unknown, NAUSEA, 05/27/18) Home Medications Cephalexin 500 Mg Tablet, 500 MG PO BID Prescribed by: LEATHA ENGLISH on 07/25/18 5841 Patient Home Medication List Home Medication List Reviewed: Yes Physical Exam-Cardiology Physical Exam Vital Signs/I&O 08/04/18 08/04/18 08/04/18 08/04/18 05:25 05:25 05:45 08:55 Temp 96.3 Pulse 102 101 Resp 22 20 B/P (MAP) 184/121 (142) 138/85 (102) Pulse Ox 99 100 100 98 O2 Delivery Nasal Cannula Non Rebreather Nasal Cannula Nasal Cannula O2 Flow Rate 2.00 2.00 2.00 08/04/18 08/04/18 08/04/18 08/04/18 09:05 09:40 10:37 11:05 Temp 98.0 98.1 Pulse 109 101 96 Resp 18 18 B/P (MAP) 139/82 (101) 132/76 (94) Pulse Ox 97 98 95 O2 Delivery Nasal Cannula Nasal Cannula Nasal Cannula O2 Flow Rate 4.00 2.00 4.00 FiO2 28 08/04/18 13:28 Pulse 92 Resp 20 B/P (MAP) 136/78 (97) Pulse Ox 97 O2 Delivery Nasal Cannula O2 Flow Rate 4.00 Capillary Refill : Less Than 3 Seconds Constitutional: AAO x 3, well-developed, well-nourished, other (obese) HEENT: PERRL, other (edentulous jaws), EOMI, hearing is well preserved; No xanthelasmas are seen Neck: carotid pulses are 2 + bilaterally, with good upstrokes Respiratory: No accessory muscle use; lungs clear to percussion, lungs clear to auscultation Cardiovascular: regular rate-rhythm, S1 and S2, systolic murmur (faint JARROD at card base) Gastrointestinal: No tender; soft; No guarding, No rebound; audible bowel sounds Extremities: other (mild to mod edema, pitting and nonpitting, of the legs); No clubbing, No cyanosis Neurologic/Psychiatric: oriented x 3, grossly intact Skin: warm/dry; No cyanosis, No cool, No rash, No rash on exposed areas, No ulcerations on exposed areas Data Review Labs Laboratory Tests 08/04/18 05:29: Blood Gas Puncture Site RT RADIAL, Blood Gas Patient Temperature 96.3, Arterial Blood pH 7.41, Arterial Blood Partial Pressure CO2 43, Arterial Blood Partial Pressure O2 97H, Arterial Blood HCO3 27, Arterial Blood Total CO2 28.6, Arterial Blood Oxygen Saturation 96, Arterial Blood Base Excess 2.7H, Jaime Test POSITIVE, Blood Gas Ventilator Setting YES, Blood Gas Inspired Oxygen 2L 08/04/18 05:46: White Blood Count 9.9, Red Blood Count 4.18L, Hemoglobin 11.8, Hematocrit 36, Mean Corpuscular Volume 87, Mean Corpuscular Hemoglobin 28, Mean Corpuscular Hemoglobin Concent 32, Red Cell Distribution Width 16.2H, Platelet Count 378, Mean Platelet Volume 8.9, Neutrophils (%) (Auto) 58, Lymphocytes (%) (Auto) 29, Monocytes (%) (Auto) 10, Eosinophils (%) (Auto) 3, Basophils (%) (Auto) 0, Neutrophils # (Auto) 5.7, Lymphocytes # (Auto) 2.9, Monocytes # (Auto) 1.0, Eosinophils # (Auto) 0.3, Basophils # (Auto) 0.0, Prothrombin Time 11.8L, INR Comment 0.9, Activated Partial Thromboplast Time 22L, Sodium Level 138, Potassium Level 4.6, Chloride Level 102, Carbon Dioxide Level 22, Anion Gap 14, Blood Urea Nitrogen 14, Creatinine 0.74, Estimat Glomerular Filtration Rate > 60 , BUN/Creatinine Ratio 19, Glucose Level 165H, Lactic Acid Level 2.01*H, Calcium Level 8.5, Corrected Calcium 8.9, Magnesium Level 2.6H, Total Bilirubin 0.3, Aspartate Amino Transf (AST/SGOT) 20, Alanine Aminotransferase (ALT/SGPT) 13, Alkaline Phosphatase 139H, Total Creatine Kinase 53, Creatine Kinase MB 0.6 , Myoglobin 80.6, Troponin I < 0.028, B-Type Natriuretic Peptide 36.8, Total Protein 6.9, Albumin 3.5, Serum Test, Qualitative NEGATIVE, Valproic Acid (Depakene) Level 27.4L 08/04/18 06:12: Glucometer 157H 08/04/18 07:11: Lactic Acid Level 1.97 08/04/18 08:40: Urine Color YELLOW, Urine Clarity CLEAR, Urine pH 6, Urine Specific [place] 1.020, Urine Protein NEGATIVE, Urine Glucose (UA) NEGATIVE, Urine Ketones 1+H, Urine Nitrite NEGATIVE, Urine Bilirubin NEGATIVE, Urine Urobilinogen NORMAL, Urine Leukocyte Esterase NEGATIVE, Urine RBC (Auto) NEGATIVE, Urine RBC NONE, Urine WBC NONE, Urine Squamous Epithelial Cells NONE, Urine Crystals NONE, Urine Bacteria NEGATIVE, Urine Casts NONE, Urine Mucus NEGATIVE, Urine Culture Indicated NO, Urine Opiates Screen NEGATIVE, Urine Oxycodone Screen NEGATIVE, Urine Methadone Screen NEGATIVE, Urine Propoxyphene Screen NEGATIVE, Urine Barbiturates Screen NEGATIVE, Ur Tricyclic Antidepressants Screen NEGATIVE, Urine Phencyclidine Screen NEGATIVE, Urine Amphetamines Screen NEGATIVE, Urine Methamphetamines Screen NEGATIVE, Urine Benzodiazepines Screen NEGATIVE, Urine Cocaine Screen NEGATIVE, Urine Cannabinoids Screen NEGATIVE 08/04/18 10:15: Troponin I < 0.028 08/04/18 10:32: Glucometer 300H 08/04/18 12:48: Glucometer 382H Microbiology 08/04/18 Influenza Types A,B Antigen (CAITLIN) - Final, Complete Laboratory Tests 08/04/18 05:46 A/P-Cardiology Assessment/Admission Diagnosis Chest pain, etiology undetermined. No evidence of ACS, so far Obesity with obesity-hypoventilation and suspected MARIA ISABEL DM II Bilateral tubal ligation for control several years ago, per patient report Removal of all teeth for dental caries, per patient report Discussion and Recomendations * Echo to eval for wall motion and PASP and ventricular function * MPI to eval for cor ischemia * Pulmonary issues management is with Dr Strange and Dr Mosqueda * We also recommend sleep eval * Further recs to be based on her hosp course Clinical Quality Measures DVT/VTE Risk/Contraindication: Risk Factor Score Per Nursin RFS Level Per Nursing on Admit: 4+=Very High JESSICA LAIRD MD FACP FAC CCDS Aug 04, 2018 13:48
[2018-08-04] MEDS ORDERED: REGADENOSON 0.4 MG/5 ML SYR (LEXISCAN) IV ONE (14:00)
[2018-08-04] MEDS ORDERED: ENOXAPARIN 40 MG/0.4 ML (LOVENOX) SYR SC SCH (14:00)
[2018-08-04] MEDS: HYDROcodone/APAP 5 MG/325 MG (LORTAB) TAB PO PRN ×2 (14:14→22:21)
[2018-08-04] MEDS: ENOXAPARIN 60 MG/0.6 ML (LOVENOX) SYR SC SCH (14:16)
[2018-08-04] MEDS: RT-ALBUTEROL/IPRATROPIUM 3 ML (DUONEB) VIAL INH SCH ×3 (14:24→22:28)
[2018-08-04] MEDS ORDERED: IOHEXOL 350 MG/ML 150 ML (OMNIPAQUE 350) VIAL IV ONE (16:00)
[2018-08-04] MEDS ORDERED: RECEIVED CONTRAST (Hold Metformin) IV SCH (16:00)
[2018-08-04] MEDS ORDERED: NS 100 ML (IVPB) BAG IV ONE (16:00)
--- NOTE | 2018-08-04 16:21 | Diagnostic Imaging Report ---
PROCEDURE: CT angiography of the chest with contrast. TECHNIQUE: Multiple contiguous axial images were obtained through the chest after uneventful bolus administration of intravenous contrast. 2D reconstructed CTA MIP acquisitions were also performed. INDICATION: Shortness of breath. COMPARISON: None. FINDINGS: There is mild cardiac enlargement without pericardial effusion. There is no lymphadenopathy. The visualized aorta and pulmonary arteries are grossly normal. There is no embolism. No aortic dissection or aneurysm is seen. The left lung is clear. There is minimal atelectasis and/or infiltrate in the superior segment of the right lower lobe and right middle lobe. No mass, nodule or effusion is present. No acute osseous abnormality is seen. There are several mid to upper thoracic fused vertebra. Visualized upper abdominal solid organs are intact. IMPRESSION: 1. Atelectasis in the superior segment of the right lower lobe and right middle lobe. Subtle infiltrate not excluded. 2. No pulmonary embolism or acute aortic pathology identified. 3. Cardiac enlargement without pulmonary edema. Dictated by: Dictated on workstation # [id number]
[2018-08-04] MEDS ORDERED: DICL100G31 TOP (17:34)
[2018-08-04] MEDS ORDERED: PREG200C PO (17:34)
[2018-08-04] MEDS ORDERED: INSU100V5 SQ (17:34)
[2018-08-04] MEDS ORDERED: RT-ALBUINH INH (17:34)
[2018-08-04] MEDS ORDERED: LEVO125T6 PO (17:34)
[2018-08-04] MEDS ORDERED: INSU100V16 SQ (17:34)
[2018-08-04] MEDS ORDERED: ALBU2.5V4 INH (17:34)
[2018-08-04] MEDS ORDERED: METO100T12 PO (17:34)
[2018-08-04] MEDS ORDERED: POTA10CA43 PO (17:34)
[2018-08-04] MEDS ORDERED: ATOR40TA70 PO (17:34)
[2018-08-04] MEDS ORDERED: ZOLM5SPR5 (17:34)
[2018-08-04] MEDS ORDERED: FLUT1BLS IH (17:34)
[2018-08-04] MEDS ORDERED: PRAM0.5T2 PO (17:34)
[2018-08-04] MEDS ORDERED: OMEP20CA12 PO (17:34)
[2018-08-04] MEDS ORDERED: FURO20TA4 PO (17:34)
[2018-08-04] MEDS ORDERED: DIVA500T15 PO (17:34)
[2018-08-04] MEDS ORDERED: SUMA100T3 PO (17:34)
[2018-08-04] MEDS ORDERED: RT-ALBUTEROL SULF 2.5 MG/3 ML PRE-MIX VIAL INH PRN (17:45)
[2018-08-04] MEDS ORDERED: NON-FORMULARY MEDICATION 1 EA EA (Sumatriptan Succinate 100 MG) PO PRN (17:45)
[2018-08-04] MEDS ORDERED: DICLOFENAC SODIUM 1 GM TOP SCH (17:45)
[2018-08-04] MEDS ORDERED: RT-ALBUTEROL SULF 2.5 MG/3 ML PRE-MIX VIAL INH SCH (17:45)
[2018-08-04] MEDS ORDERED: inSUlin DETERMIR 1 UNIT/0.01 ML (LEVEMIR) CHARGE PER UNIT SQ SCH (21:00)
[2018-08-04] MEDS ORDERED: PRAMIPEXOLE DI HCL 0.5 MG PO SCH (21:00)
[2018-08-04] MEDS: ATORVASTATIN 40 MG (LIPITOR) TABLET PO SCH (22:20)
[2018-08-04] MEDS: PREGABALIN 100 MG (LYRICA) CAPSULE PO SCH (22:20)
[2018-08-04] MEDS: MONTELUKAST 10 MG (SINGULAIR) TAB PO SCH (22:20)
[2018-08-04] MEDS: meTOprolol TARTRATE 50 MG (LOPRESSOR) TAB PO SCH (22:21)
[2018-08-04] MEDS: DOCUSATE SODIUM 100 MG (COLACE) CAP PO PRN (22:22)
[2018-08-04] MEDS: DIVALPROEX EXT RELEASE 250 MG (DEPAKOTE ER) TAB PO SCH (22:22)
[2018-08-04] MEDS: inSUlin DETERMIR 1 UNIT/0.01 ML (LEVEMIR) CHARGE PER UNIT SQ SCH (22:29)
[2018-08-05] MEDS: methylPREDNISolone 40 MG/ML (Solu-MEDROL) VIAL IV SCH (00:07)
[2018-08-05] MEDS: LACTATED RINGERS 1,000 ML IV SCH (00:07)
[2018-08-05] MEDS: ENOXAPARIN 60 MG/0.6 ML (LOVENOX) SYR SC SCH ×2 (01:57→13:42)
[2018-08-05] MEDS: RT-ALBUTEROL/IPRATROPIUM 3 ML (DUONEB) VIAL INH SCH ×5 (02:42→19:00)
[2018-08-05 04:00] VITALS: BP 134/87
[2018-08-05] MEDS: HYDROcodone/APAP 5 MG/325 MG (LORTAB) TAB PO PRN ×2 (04:10→17:57)
[2018-08-05 06:03] LABS: BASOPHILS % (AUTO) 0 % (0-10); EOSINOPHILS % (AUTO) 0 % (0-10); HEMATOCRIT 37 % (35-52); HEMOGLOBIN 11.9 G/DL (11.5-16.0); LYMPHOCYTES # (AUTO) 1.5 X 10^3 (1.0-4.0); LYMPHOCYTES % (AUTO) 13 % (12-44); MEAN CORPUSCULAR HEMOGLOBIN 28 PG (25-34); MEAN CORPUSCULAR HGB CONC 32 G/DL (32-36); MEAN CORPUSCULAR VOLUME 87 FL (80-99); MONOCYTES # (AUTO) 0.7 X 10^3 (0.0-1.0); MONOCYTES % (AUTO) 6 % (0-12); NEUTROPHILS # (AUTO) 9.6 X 10^3 (1.8-7.8); NEUTROPHILS % (AUTO) 82 % (42-75); PLATELET COUNT 386 10^3/uL (130-400); RED CELL DISTRIBUTION WIDTH 16.1 % (10.0-14.5); WHITE BLOOD COUNT 11.8 10^3/uL (4.3-11.0)
[2018-08-05] MEDS: inSUlin ASPART (NovoLOG) 1 UNIT/0.01 ML (CHARGE PER UNIT) SC SCH ×5 (06:09→17:57)
[2018-08-05] MEDS: DOCUSATE SODIUM 100 MG (COLACE) CAP PO PRN (06:09)
[2018-08-05] MEDS: CATHETER FLUSH 10 ML SYR IV SCH ×2 (06:10→10:44)
[2018-08-05 06:21] LABS: ALANINE AMINOTRANSFERASE 12 U/L (0-55); ALBUMIN 3.6 GM/DL (3.2-4.5); ALKALINE PHOSPHATASE 116 U/L (40-136); BILIRUBIN,TOTAL 0.4 MG/DL (0.1-1.0); BUN/CREATININE RATIO 24; CALCIUM 8.6 MG/DL (8.5-10.1); CARBON DIOXIDE 25 MMOL/L (21-32); CHLORIDE 100 MMOL/L (98-107); CREATININE SERUM 0.76 MG/DL (0.60-1.30); GFR ESTIMATED > 60; GLUCOSE 309 MG/DL (70-105); POTASSIUM 4.4 MMOL/L (3.6-5.0); SODIUM 137 MMOL/L (135-145); TOTAL PROTEIN 6.7 GM/DL (6.4-8.2)
[2018-08-05] MEDS ORDERED: LEVOTHYROXINE 125 MCG (LEVOTHROID) TABLET PO SCH (06:30)
[2018-08-05] MEDS ORDERED: INSULIN VIAL ASPART for PUMP 100 UNIT/ML VIAL SQ SCH (07:00)
[2018-08-05] MEDS ORDERED: FUROSEMIDE 20 MG (LASIX) TAB PO SCH (07:00)
[2018-08-05] MEDS ORDERED: PANTOPRAZOLE 20 MG TABLET (PROTONIX) PO SCH (07:00)
[2018-08-05] MEDS ORDERED: cefTRIAXone 1 GM/NS 50 ML IVPB IV SCH ×2 (07:00)
--- NOTE | 2018-08-05 07:04 | Pulmonary Progress Note ---
Subjective Time Seen by a Provider: 07:10 Sepsis Event Evaluation Height, Weight, BMI Height: 5'0.00" Weight: 337lbs. 7.0oz. 153.371703tm; 64.7 BMI Method:Stated Focused Exam Lactate Level 08/04/18 05:46: Lactic Acid Level 2.01*H 08/04/18 07:11: Lactic Acid Level 1.97 Exam Exam Vital Signs Date Time Temp Pulse Resp B/P (MAP) Pulse Ox O2 Delivery O2 Flow Rate FiO2 08/05/18 06:51 95 Nasal Cannula 2.00 08/05/18 04:00 97.6 89 20 134/87 (103) 96 Nasal Cannula 2.00 08/05/18 02:43 95 Nasal Cannula 2.00 08/05/18 01:00 74 08/04/18 23:00 98.3 109 22 178/81 (113) 93 Nasal Cannula 2.00 08/04/18 22:29 92 Nasal Cannula 2.00 08/04/18 21:00 98.6 118 23 132/74 (93) 94 Nasal Cannula 4.00 08/04/18 20:00 Nasal Cannula 2.00 08/04/18 19:59 119 08/04/18 18:48 98.1 111 22 139/80 (99) 94 Nasal Cannula 4.00 08/04/18 16:45 99.0 120 23 134/66 (88) 95 Nasal Cannula 4.00 08/04/18 14:24 95 Nasal Cannula 2.00 08/04/18 13:28 92 20 136/78 (97) 97 Nasal Cannula 4.00 08/04/18 12:54 128 08/04/18 11:05 98.1 96 18 132/76 (94) 95 Nasal Cannula 4.00 08/04/18 10:37 101 98 28 08/04/18 09:40 Nasal Cannula 2.00 08/04/18 09:05 98.0 109 18 139/82 (101) 97 Nasal Cannula 4.00 08/04/18 08:55 101 20 138/85 (102) 98 Nasal Cannula 2.00 I & O 08/05/18 07:00 Intake Total 3620 ml Output Total 7550 ml Balance -3930 ml Height & Weight Height: 5'0.00" Weight: 337lbs. 7.0oz. 153.619026lc; 64.7 BMI Method:Stated General Appearance: WD/WN, Chronically ill, Mild Distress, Obese HEENT: PERRL/EOMI, Normal ENT Inspection, Pharynx Normal Neck: Full Range of Motion, Normal Inspection, Non Tender, Supple, Carotid Bruit Respiratory: Chest Non Tender, No Respiratory Distress, Accessory Muscle Use, Crackles, Decreased Breath Sounds, Wheezing Cardiovascular: Regular Rate, Rhythm, No Edema, No Gallop, No JVD, No Murmur, Normal Peripheral Pulses Capillary Refill: Less Than 3 Seconds Gastrointestinal: non tender Extremity: Normal Capillary Refill, Normal Inspection, Normal Range of Motion, Non Tender, No Calf Tenderness, No Pedal Edema Neurologic/Psychiatric: Alert, Oriented x3, No Motor/Sensory Deficits, Normal Mood/Affect Skin: Normal Color, Warm/Dry Lymphatic: No Adenopathy Results Lab Laboratory Tests 08/04/18 05:46 08/05/18 05:50 Assessment/Plan Assessment/Plan Dyspnea secondary RLD with asthma and hypoxia with AE -SVNS Q4 -CTA of chest - reviewed -Add SingulairMini Atlectasis -Increase activity -IS Metabolic lactic acidosis- resolved -Hep lock IVF Morbid obesity with probable MARIA ISABEL IDALIA ROBLES DO Aug 05, 2018 07:04
[2018-08-05] MEDS ORDERED: DICLOFENAC 1% GEL 100 GM (VOLTAREN) TUBE TOP PRN (07:30)
[2018-08-05 08:00] VITALS: BP 136/81
[2018-08-05] MEDS ORDERED: NON-FORMULARY MEDICATION 1 EA EA (Fluticasone/Vilanterol (Breo Ellipta 200-25 Mcg INH) 1 E IH SCH (09:00)
[2018-08-05] MEDS ORDERED: AZITHROMYCIN 250 MG TAB (ZITHROMAX) PO SCH (09:00)
[2018-08-05] MEDS ORDERED: LORATADINE (CLARITIN) 10 MG TAB PO SCH (09:00)
[2018-08-05] MEDS ORDERED: predniSONE 10 MG TAB PO SCH (09:00)
[2018-08-05] MEDS ORDERED: ZOLMITRIPTAN 5 MG SCH (09:00)
[2018-08-05] MEDS ORDERED: KCL 10 MEQ TAB (MICRO K) PO SCH (09:00)
[2018-08-05] MEDS ORDERED: ZOLP5TAB7 PO (09:13)
--- NOTE | 2018-08-05 09:14 | NUR ---
Patient had medication bottles in her room. She did not bring Levemir, Novolog, or Zolpidem. Her Potassium and Lasix were empty.
[2018-08-05] MEDS: inSUlin DETERMIR 1 UNIT/0.01 ML (LEVEMIR) CHARGE PER UNIT SQ SCH (09:52)
[2018-08-05] MEDS: HYDROCODONE/CHLOR 10MG/5 ML (TUSSIONEX SUSP) 5ML UDC PO SCH ×2 (09:52→20:49)
[2018-08-05] MEDS: meTOprolol TARTRATE 50 MG (LOPRESSOR) TAB PO SCH ×2 (09:53→20:49)
[2018-08-05] MEDS: PREGABALIN 100 MG (LYRICA) CAPSULE PO SCH ×2 (09:54→20:49)
[2018-08-05] MEDS: DIVALPROEX EXT RELEASE 250 MG (DEPAKOTE ER) TAB PO SCH ×2 (09:54→20:49)
[2018-08-05] MEDS: RT-ADVAIR HFA 115/21 MCG PER PUFF IH SCH ×2 (09:59→19:00)
--- NOTE | 2018-08-05 10:02 | Physical Therapy Evaluation ---
PT Evaluation-General Medical Diagnosis Admission Date Aug 04, 2018 at 07:00 Medical Diagnosis: COPD exacerbation, Morbid Obesity, CHF Onset Date: Aug 04, 2018 Therapy Diagnosis Therapy Diagnosis: decreased activity tolerance Height/Weight Height (Feet): 5 Height (Inches): 0.00 Weight (Pounds): 337 Weight (Ounces): 7.0 Precautions Precautions/Isolations: Fall Prevention, Standard Precautions Weight Bear Status Right Lower Extremity: Right Full Weight Bearing Left Lower Extremity: Left Full Weight Bearing Referral Physician: Jimmie oMsqueda DO Reason for Referral: Evaluation/Treatment Medical History Pertinent Medical History: COPD, DM, HTN, Hypothroidism, PA (stress), Neuropathy Additional Medical History Surgery Scoliosis age 15, L foot reconstruction less than 1 yr ago, Asthma, Seizure disorder, Fibromyalgia, Morbid Obesity Current History Pt to ED via EMS c/o SOB for 4 days Social History Home: Single Level Current Living Status: Spouse Entry Into Home: Level Entry Prior/Core FIM Prior Level of Function Therapy Code Descriptions/Definitions Functional [place] Measure: 0=Not Assessed/NA 4=Minimal Assistance 1=Total Assistance 5=Supervision or Setup 2=Maximal Assistance 6=Modified [place] 3=Moderate Assistance 7=Complete [place] Therapy Quality Codes: 6 Independent with activity with or without an assistive device 5 Patient requires set up or clean up by helper. Patient completes activity by themselves 4 Supervision or touching assist (CGA). [place] provide cues , steadying assist 3 The helper provides less than half the effort to complete the activity 2 The helper provides more than half the effort to complete the activity 1 Dependent. The helper does all the effort to complete an activity 7 Patient refused to complete or attempt activity 9 The patient did not perform the activity before the current illness or injury 88 Not attempted due to Medical conditions or safety concerns Functional Abilities and Goals: Independent: Patient completed the activities by him/herself, with or without an assistive device, with no assistance from a helper. Needed Some Help: Patient needed partial assistance from another person to complete activities. Dependent: A helper completed the activities for the patient. Unknown: Not Applicable: Bed Mobility: 6 Transfers (B,C,W/C) (FIM): 6 Gait: 6 Indoor Mobility (Ambulation): Independent Stairs: Independent Prior Devices Use: Motorized wheelchair, Walker, Other-see list below Prior Device Use: Cane in house, power chair for community PT Evaluation-Current Subjective Pt was returning from bathroom via FWW. Pt reports that they are waiting to see if she needs O2 at home or if she can go home without it. Pt agrees to PT. Pain Numeric Pain Scale: 3 Location: Left Location Body Site: Foot Pt/Family Goals Pt to return home with family ROM/Strength ROM Lower Extremities WNL Strength Lower Extremities WNL, not tested formally due to pt amb upon arrival to room Integumentary/Posture Bowel Incontinence: No Bladder Incontinence: Aclantar Cath Neuromuscular (Tone, Coordination, Reflexes) NT Sensory Vision: Functional Hearing: Functional Sensation Right Lower Extremit: Intact Sensation Left Lower Extremity: Intact Transfers Therapy Code Descriptions/Definitions Functional [place] Measure: 0=Not Assessed/NA 4=Minimal Assistance 1=Total Assistance 5=Supervision or Setup 2=Maximal Assistance 6=Modified [place] 3=Moderate Assistance 7=Complete [place] Transfers (B, C, W/C) (FIM): 6 Scootin Supine to/from Sit: 6 Sit to/from Stand: 6 Gait Mode of Locomotion: Both Anticipated Mode of Locomotion: Both Gait (FIM): 6 Distance (FIM): 3=150 ft Distance: 400' Gait Level of Assist: 6 Gait Persons Needed: 1 Gait Assistive Device: FWW Balance Sitting Static: Good Sitting Dynamic: Good Standing Static: Good Standing Dynamic: Good Assessment/Needs Pt bed mobility is indep with use of bed assists. Pt is able to transfer sit<> stand to FWW indep. Pt amb with FWW with PT assisting with O2 at 2.5L. Pts SaO2 was 97% after amb of 400'. Pt is now in bed with all needs met. PT will not be adding pt to services due to her functional ability. Rehab Potential: Fair Post Rehab Potential-Barriers: Co-morbidities PT Plan Problem List Problem List: Activity Tolerance Treatment/Plan Treatment Plan: Discontinue PT Treatment Plan: Other Treatment Duration: Aug 05, 2018 Frequency: 1 time per week Estimated Hrs Per Day: .25 hour per day Patient and/or Family Agrees t: Yes PT is d/c pt. Discharge Recommendations Therapy D/C Recommendations: Home w/ Family Support Time/GCodes Time In: 933 Time Out: 951 Total Billed Treatment Time: 18 Total Billed Treatment 1 visit EVlowC 18 min WARREN MUNIZ PT Aug 05, 2018 10:02
[2018-08-05] MEDS ORDERED: SUMAtriptan 50 MG (IMITREX) TAB PO PRN (11:30)
--- NOTE | 2018-08-05 11:36 | Diagnostic Imaging Report ---
INDICATION: Congestive heart failure. TECHNIQUE: Two view chest 10:58 a.m. CORRELATION STUDY: 08/04/2018. FINDINGS: Distortion of the right chest wall. Slight asymmetric parenchymal density over the right lung is present likely largely attributed to the deformity. Heart size mildly enlarged. No evidence of overt failure. Degenerative type change about the thoracic spine. IMPRESSION: 1. Right chest wall deformity with some distortion of the right lung. No definitive evidence for acute cardiopulmonary abnormality. Cardiac enlargement without failure. Dictated by: Dictated on workstation # [id number]
[2018-08-05] MEDS ORDERED: REGADENOSON 0.4 MG/5 ML SYR (LEXISCAN) IV ONE ×2 (11:56→12:15)
[2018-08-05 12:07] VITALS: BP 167/90
--- NOTE | 2018-08-05 12:40 | Progress Note-Cardiology ---
Cardiology SOAP Progress Note Subjective: Sitting up in a w/c. C/O SOB which is unchanged. No c/o CP. C/O back pain. Objective: I&O/Vital Signs 08/05/18 08/05/18 08/05/18 08/05/18 02:43 04:00 06:51 07:00 Temp 97.6 Pulse 89 99 Resp 20 B/P (MAP) 134/87 (103) Pulse Ox 95 96 95 O2 Delivery Nasal Cannula Nasal Cannula Nasal Cannula O2 Flow Rate 2.00 2.00 2.00 08/05/18 08/05/18 08/05/18 08/05/18 08:00 08:00 10:00 12:07 Temp 98.2 Pulse 101 88 Resp 20 B/P (MAP) 136/81 (99) 167/90 (115) Pulse Ox 96 95 98 O2 Delivery Nasal Cannula Nasal Cannula Nasal Cannula Nasal Cannula O2 Flow Rate 2.00 2.00 2.00 3.00 08/05/18 00:00 Intake Total 1920 ml Output Total 7050 ml Balance -5130 ml Weight (Pounds): 337 Weight (Ounces): 7.0 Weight (Calculated Kilograms): 153.626959 Constitutional: AAO x 3, well-developed, well-nourished, other (obese) Respiratory: No accessory muscle use; lungs clear to percussion, lungs clear to auscultation Cardiovascular: regular rate-rhythm, S1 and S2, systolic murmur (faint JARROD at card base) Gastrointestional: No tender; soft; No guarding, No rebound; audible bowel sounds Extremities: other (mild to mod edema, pitting and nonpitting, of the legs); No clubbing, No cyanosis Neurologic/Psychiatric: oriented x 3, grossly intact Skin: warm/dry; No cyanosis, No cool, No rash, No rash on exposed areas, No ulcerations on exposed areas Results/Procedures: Labs Laboratory Tests 08/04/18 16:26: Troponin I < 0.028 08/04/18 16:44: Glucometer 325H 08/04/18 21:47: Glucometer 356H 08/05/18 05:12: Glucometer 290H 08/05/18 05:50: White Blood Count 11.8H, Red Blood Count 4.28L, Hemoglobin 11.9, Hematocrit 37, Mean Corpuscular Volume 87, Mean Corpuscular Hemoglobin 28, Mean Corpuscular Hemoglobin Concent 32, Red Cell Distribution Width 16.1H, Platelet Count 386, Mean Platelet Volume 9.0, Neutrophils (%) (Auto) 82H, Lymphocytes (%) (Auto) 13 , Monocytes (%) (Auto) 6, Eosinophils (%) (Auto) 0, Basophils (%) (Auto) 0, Neutrophils # (Auto) 9.6H, Lymphocytes # (Auto) 1.5, Monocytes # (Auto) 0.7, Eosinophils # (Auto) 0.0, Basophils # (Auto) 0.0, Sodium Level 137, Potassium Level 4.4, Chloride Level 100, Carbon Dioxide Level 25, Anion Gap 12, Blood Urea Nitrogen 18, Creatinine 0.76, Estimat Glomerular Filtration Rate > 60, BUN/ Creatinine Ratio 24, Glucose Level 309H, Calcium Level 8.6, Corrected Calcium 8.9, Total Bilirubin 0.4, Aspartate Amino Transf (AST/SGOT) 11, Alanine Aminotransferase (ALT/SGPT) 12, Alkaline Phosphatase 116, Total Protein 6.7, Albumin 3.6 08/05/18 13:07: Glucometer 419*H Microbiology 08/04/18 Influenza Types A,B Antigen (CAITLIN) - Final, Complete Procedures NAME: JOSIAS [facility]ADDAD [facility] REC#: [id number] PT STATUS: ADM IN : 1970 PHYSICIAN: CAMILA GREENBERG DO ADMIT DATE: 08/04/18 Signed Date of Exam: 08/05/18 CHEST PA/LAT (2 VIEW) INDICATION: Congestive heart failure. TECHNIQUE: Two view chest 10:58 a.m. CORRELATION STUDY: 08/04/2018. FINDINGS: Distortion of the right chest wall. Slight asymmetric parenchymal density over the right lung is present likely largely attributed to the deformity. Heart size mildly enlarged. No evidence of overt failure. Degenerative type change about the thoracic spine. IMPRESSION: 1. Right chest wall deformity with some distortion of the right lung. No definitive evidence for acute cardiopulmonary abnormality. Cardiac enlargement without failure. Dictated by: Dictated on workstation # [id number] Dict: 08/05/18 1119 Trans: 08/05/18 1230 Interpreted by: ANGELO SMITH DO Electronically signed by: ANGELO SMITH DO 08/05/18 1230 A/P: Assessment: Chest pain, etiology undetermined. No evidence of ACS MPI of 08/05/18: no ischemia or infarction Echo of 08/05/18: LVEF 60-65%, PASP 25 mmHg, mild dilatation of LA Obesity with obesity-hypoventilation and suspected MARIA ISABEL DM II Bilateral tubal ligation for control several years ago, per patient report Removal of all teeth for dental caries, per patient report Plan: * Echo to eval for wall motion and PASP and ventricular function - pending * MPI to eval for cor ischemia - pending * Pulmonary issues management is with Dr Greenberg and Dr Mosqueda * We also recommend sleep eval Physician Assessment Physician Assessment Shortness of breath is better. No cp today. No palp or syncope Lungs: fair air entry, prolonged exp phase Cor: reg Ext: no c/c, chronic mod limb edema (all limbs) that is mostly non-pitting A&R * As documented in our note above that I updated (italics) and as noted below * I discussed the results of echo and MPI with her in detail * Sleep eval and outpt f/u advised ALIDA CONCEPCION STENCILER Aug 05, 2018 12:40 JESSICA LAIRD MD FACP FAC CCDS Aug 05, 2018 14:20
--- NOTE | 2018-08-05 13:24 | Occ Therapy Progress Note ---
Therapy Progress Note OT order received, chart reviewed. Pt. not in room due to having procedure. Pt. having x-ray and then stress test per nursing. Will check back as time allows. [id number] PATRICIA MAXWELL OT Aug 05, 2018 13:23
[2018-08-05 16:00] VITALS: BP 143/84
--- NOTE | 2018-08-05 16:45 | STRESS TEST ---
DATE OF SERVICE: 08/05/2018 RESTING AND POST REGADENOSON TECHNETIUM-99M TETROFOSMIN SPECT CT IMAGING ORDERING PHYSICIAN: Dr. Pineda. PRIMARY PHYSICIAN: [facility]. ATTENDING PHYSICIAN: Dr. Strange. CLINICAL DIAGNOSIS: Chest discomfort, shortness of breath. Baseline images were carried out after injection of 10.78 mCi technetium-99m Tetrofosmin. This was followed by 0.4 mg regadenoson and 32.3 mCi technetium-99m Tetrofosmin for stress imaging. The patient noted some shortness of breath and chest discomfort following regadenoson, which resolved in a few minutes. Review of images at rest and following stress does not indicate any significant perfusion defects consistent with significant myocardial ischemia or infarction. Gated images show normal global left ventricular systolic function and normal regional wall motion. Left ventricular ejection fraction is calculated to be 66%. CONCLUSIONS: 1. No evidence of any significant myocardial ischemia or infarction on this study. 2. Normal regional wall motion. 3. Normal global left ventricular systolic function with a calculated ejection fraction of 66%. Job ID: [id number] DocumentID: [id number] Dictated Date: 08/05/2018 13:22:14 Gambling Broker Date: 08/05/2018 16:44:44 Dictated By: JESSICA PINEDA MD, MA, FACP, FACC,
--- NOTE | 2018-08-05 17:50 | Progress Note (SOAP) ---
Subjective Subjective/Events-last exam Afebrile, no acute events. Feeling at baseline per her report, walked with walker today. She does not use supplemental oxygen at home however. Review of Systems Date Seen by Provider: Aug 05, 2018 Time Seen by Provider: 10:50 Focused Exam Lactate Level 08/04/18 05:46: Lactic Acid Level 2.01*H 08/04/18 07:11: Lactic Acid Level 1.97 Objective Exam Last Set of Vital Signs Vital Signs Date Time Temp Pulse Resp B/P (MAP) Pulse Ox O2 Delivery O2 Flow Rate FiO2 08/05/18 14:20 96 Nasal Cannula 2.00 08/05/18 13:00 89 08/05/18 12:07 167/90 (115) 08/05/18 08:00 98.2 20 08/04/18 10:37 28 Capillary Refill : Less Than 3 Seconds I&O Intake and Output 08/05/18 00:00 Intake Total 2120 ml Output Total 7050 ml Balance -4930 ml Intake Oral 1920 ml IV Total 200 ml Output Urine Total 7050 ml Daily Weight Change No No General: Alert Lungs: Clear to Auscultation, Normal Air Movement Heart: Regular Rate, No Murmurs Psych/Mental Status: Mental Status NL Results/Procedures Lab Laboratory Tests 08/04/18 21:47: Glucometer 356H 08/05/18 05:12: Glucometer 290H 08/05/18 05:50: White Blood Count 11.8H, Red Blood Count 4.28L, Hemoglobin 11.9, Hematocrit 37, Mean Corpuscular Volume 87, Mean Corpuscular Hemoglobin 28, Mean Corpuscular Hemoglobin Concent 32, Red Cell Distribution Width 16.1H, Platelet Count 386, Mean Platelet Volume 9.0, Neutrophils (%) (Auto) 82H, Lymphocytes (%) (Auto) 13 , Monocytes (%) (Auto) 6, Eosinophils (%) (Auto) 0, Basophils (%) (Auto) 0, Neutrophils # (Auto) 9.6H, Lymphocytes # (Auto) 1.5, Monocytes # (Auto) 0.7, Eosinophils # (Auto) 0.0, Basophils # (Auto) 0.0, Sodium Level 137, Potassium Level 4.4, Chloride Level 100, Carbon Dioxide Level 25, Anion Gap 12, Blood Urea Nitrogen 18, Creatinine 0.76, Estimat Glomerular Filtration Rate > 60, BUN/ Creatinine Ratio 24, Glucose Level 309H, Calcium Level 8.6, Corrected Calcium 8.9, Total Bilirubin 0.4, Aspartate Amino Transf (AST/SGOT) 11, Alanine Aminotransferase (ALT/SGPT) 12, Alkaline Phosphatase 116, Total Protein 6.7, Albumin 3.6 08/05/18 13:07: Glucometer 419*H 08/05/18 15:28: Glucometer 354H Microbiology 08/04/18 Blood Culture - Preliminary, Resulted No growth 08/04/18 Influenza Types A,B Antigen (CAITLIN) - Final, Complete Assessment/Plan Assessment/Plan Assessment & Plan Hypoxia- secondary to asthma exacerbation and restrictive lung disease, respiratory status improved, on oral steroid taper now, still requiring supplemental oxygen, will plan for home O2 qual testing tomorrow Chest pain- Cardiology consult, appreciate recommendations Clinical Quality Measures DVT/VTE Risk/Contraindication: Risk Factor Score Per Nursin RFS Level Per Nursing on Admit: 4+=Very High DEMARCO LOPEZ MD Aug 05, 2018 17:50
--- NOTE | 2018-08-05 19:34 | NUR ---
no home o2 needed at this time Addendum: 08/05/18 at 1935 by KITTY MITCHELL Amended: Links added.
[2018-08-05 20:00] VITALS: BP 155/87
[2018-08-05] MEDS: MONTELUKAST 10 MG (SINGULAIR) TAB PO SCH (20:49)
[2018-08-05] MEDS: ATORVASTATIN 40 MG (LIPITOR) TABLET PO SCH (20:49)
[2018-08-05] MEDS ORDERED: PRAMIPEXOLE 0.5 MG TAB (MIRAPEX) PO SCH (21:00)
[2018-08-05] MEDS ORDERED: AZIT250T12 PO (21:07)
[2018-08-05] MEDS ORDERED: PRD10T PO (21:07)
--- NOTE | 2018-08-05 21:08 | Discharge Summary ---
Diagnosis/Chief Complaint Date of Admission Aug 04, 2018 at 07:00 Date of Discharge Discharge Summary-Simple/Stand Consultations Discharge Physical Examination Allergies: Coded Allergies: butorphanol (Unverified Adverse Reaction, Severe, 08/04/18) HALLUCINATIONS Penicillins (Unverified Adverse Reaction, Unknown, NAUSEA, 08/04/18) Uncoded Allergies: SYMBALTA (Adverse Reaction, Unknown, NAUSEA, 05/27/18) Vitals & I&Os Vital Sign - Last 12Hours Date Time Temp Pulse Resp B/P (MAP) Pulse Ox O2 Delivery O2 Flow Rate FiO2 08/05/18 19:06 99 2.00 08/05/18 19:05 Room Air 08/05/18 13:00 89 08/05/18 12:07 167/90 (115) 08/05/18 08:00 98.2 20 08/04/18 10:37 28 Intake and Output 08/05/18 00:00 Intake Total 1920 ml Output Total 7050 ml Balance -5130 ml Hospital Course See final discharge diagnosis. Discharge Instructions to patient/family Please see electronic discharge instructions given to patient. Discharge Medications Reviewed and agree with Discharge Medication list on patient's Discharge Instruction sheet Clinical Quality Measures DVT/VTE Risk/Contraindication: Risk Factor Score Per Nursin RFS Level Per Nursing on Admit: 4+=Very High DEMARCO LOPEZ MD Aug 05, 2018 21:08
[2018-08-05 21:55] VITALS: BP 143/84
--- NOTE | 2018-08-05 23:16 | NUR ---
PATIENT DISCHARGED TO HOME. IV REMOVED WITH TIP INTACT, CATHETER REMOVED AND PT TOLERATED WELL. DISCHARGE PACKET REVIEWED WITH PT AND VERBALIZED UNDERSTANDING. NO QUESTIONS OR CONCERNS FROM PT. PT TAKEN OUT BY STAFF AND ESCORTED TO PRIVATE VEHICLE. ALL PERSONAL ITEMS REMOVED AND GIVEN TO PT TO TAKE HOME WITH HER. PT HAD ALL BELONGINGS. PT LEFT AT 2118.
--- NOTE | 2018-08-08 01:05 | NUR ---
RECORDS OBTAINED FOR [facility] VIA VERBAL ORDER FROM NATE BASSETT APRN.
== END 2018-08-05 22:58 | disposition home or self-care (01) | DRG 202 ==
LOC: EDUNIT# 05:16 → ER 05:17 → 4TH 07:00
PROVIDERS: ADMIT Internal Medicine; ATTEND Internal Medicine
DX: J45.901 Unspecified asthma with (acute) exacerbation (principal); J44.1 Chronic obstructive pulmonary disease with (acute) exacerbation; E66.2 Morbid (severe) obesity with alveolar hypoventilation; Z68.44 Body mass index [BMI] 60.0-69.9, adult; E87.2 Acidosis; J98.11 Atelectasis; G43.909 Migraine, unspecified, not intractable, without status migrainosus; I11.0 Hypertensive heart disease with heart failure; I50.9 Heart failure, unspecified; E11.9 Type 2 diabetes mellitus without complications; I25.10 Atherosclerotic heart disease of native coronary artery without angina pectoris; E78.00 Pure hypercholesterolemia, unspecified; M79.7 Fibromyalgia; E03.9 Hypothyroidism, unspecified; F41.9 Anxiety disorder, unspecified; F32.9 Major depressive disorder, single episode, unspecified; Z86.73 Personal history of transient ischemic attack (TIA), and cerebral infarction without residual deficits; I25.2 Old myocardial infarction; Z79.4 Long term (current) use of insulin; Z87.891 Personal history of nicotine dependence
CPT/HCPCS: 36415; 36600; 51702; 71045; 71046; 71275; 78452; 80053; 80164; 80306; 81000; 82550; 82553; 82805; 82962; 83605; 83735; 83874; 83880; 84484; 84703; 85025; 85610; 85730; 87040; 87804; 93005; 93017; 93041; 93306; 94640; 94760; 94761; G0378

== ENCOUNTER → 2018-08-13 | Outpatient (CLI) | payer MEDICAID ==
[~2018-08-13] MED LIST changes: +ALBU2.5V4 INH; +ATOR40TA70 PO; +AZIT250T12 PO; +DICL100G31 TOP; +DIVA500T15 PO; +FLUT1BLS IH; +FURO20TA4 PO; +INSU100V16 SQ; +INSU100V5 SQ; +LEVO125T6 PO; +METO100T12 PO; +OMEP20CA12 PO; +POTA10CA43 PO; +PRAM0.5T2 PO; +PRD10T PO; +PREG200C PO; +RT-ALBUINH INH; +SUMA100T3 PO; +ZOLM5SPR5; +ZOLP5TAB7 PO
[2018-08-13 12:23] LABS: ABG BASE EXCESS 3.1 MMOL/L (-2.5-2.5); ABG OXYGEN SATURATION 93 % (94-100); ABG PCO2 41 MMHG (35-45); ABG PH 7.43 (7.37-7.43); ABG PO2 73 MMHG (79-93); ABG TCO2 28.3 MMOL/L (21.0-31.0); ALLENS TEST YES-POS; INSPIRED O2 ROOM AIR; PATIENT TEMP 98.9; VENTILATOR NO
--- NOTE | 2018-08-13 16:54 | Diagnostic Imaging Report ---
INDICATION: Asthma and cough. TIME OF EXAM: 11:46 a.m. COMPARISON: Correlation is made with prior study from 08/05/2018. FINDINGS: Left convexity scoliotic curvature is again noted. The heart size is stable. Deformity involving right-sided ribs is again seen. There is no infiltrate. No effusion or pneumothorax is identified. IMPRESSION: No acute cardiopulmonary process is detected. Dictated by: Dictated on workstation # [id number]
== END ==
LOC: LAB 11:23
PROVIDERS: ATTEND Nurse Practitioner Family
DX: J98.4 Other disorders of lung (principal); G47.10 Hypersomnia, unspecified; J45.909 Unspecified asthma, uncomplicated; G25.81 Restless legs syndrome; J42 Unspecified chronic bronchitis
CPT/HCPCS: 36600; 71046; 82805

== ENCOUNTER 2018-08-27 10:00 | Outpatient (RCR) | payer MEDICAID ==
[2018-07-08 08:11] VITALS: BP 120/60
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
[2018-08-06 09:45] VITALS: BP 130/80
[2018-08-06 10:48] VITALS: BP 123/78
[2018-08-13 10:30] VITALS: BP 140/89
[2018-08-15 10:00] VITALS: BP 125/87
[2018-08-15 11:00] VITALS: BP 130/80
[2018-08-20 09:50] VITALS: BP 142/74
[2018-08-20 10:30] VITALS: BP 142/64
[2018-08-22 09:40] VITALS: BP 115/70
[2018-08-22 10:45] VITALS: BP 130/75
[~2018-08-27] VITALS: Ht 152.4 cm; Wt 154.2 kg
[2018-08-27 09:43] VITALS: BP 115/60
[2018-08-27 11:00] VITALS: BP 115/60
[2018-09-17 10:00] VITALS: BP 130/86
[2018-09-17 10:47] VITALS: BP 140/60
== END 2018-10-06 | disposition home or self-care (01) ==
LOC: PULM 10:00
PROVIDERS: ATTEND Nurse Practitioner Family
DX: J45.909 Unspecified asthma, uncomplicated (principal); G25.81 Restless legs syndrome; J42 Unspecified chronic bronchitis; G47.10 Hypersomnia, unspecified; J98.4 Other disorders of lung

== ENCOUNTER 2018-09-18 19:47 | Outpatient (CLI) | payer MEDICAID | END 2018-09-19 07:38 | disposition home or self-care (01) | LOC: SLEEP 19:47 | PROVIDERS: ATTEND Nurse Practitioner Family | DX: G47.10 Hypersomnia, unspecified (principal); J45.909 Unspecified asthma, uncomplicated; J42 Unspecified chronic bronchitis; G25.81 Restless legs syndrome | CPT/HCPCS: 95810 ==

== ENCOUNTER 2019-12-08 19:36 | Emergency (ER) | payer MEDICAID ==
[~2019-12-08] VITALS: Ht 152 cm; Wt 134.1 kg
[~2019-12-08 19:36] MED LIST changes: -OMEP20CA12 PO; +OMEP20CA18 PO
[2019-12-08 19:45] VITALS: BP 196/112
[2019-12-08] MEDS ORDERED: LIDOCAINE 1% INJ 20 ML 20 ML VIAL INJ ONE (20:00)
[2019-12-08] MEDS ORDERED: KETOROLAC 60 MG/2 ML VIAL IM ONE (20:00)
[2019-12-08] MEDS ORDERED: cefTRIAXone 1,000 MG/2.86 ml vial (IM ONLY) IM SCH (20:00)
--- NOTE | 2019-12-08 20:01 | ED Integumentary General ---
General Chief Complaint: Skin/Wound Problems Stated Complaint: RASH Source: patient Exam Limitations: no limitations History of Present Illness Date Seen by Provider: Dec 08, 2019 Time Seen by Provider: 19:55 Initial Comments To ER with a red bump to the thenar eminence left hand she states she got while she was at [facility] today though she did not actually see anything get her. She now has pain with any movement of the thumb. She also has a few bumps to the vol ar right wrist since yesterday. No other rash anywhere else. She states that she was at [facility] and got mad and left is all they were going to do was give her a cream. Timing/Duration: just prior to arrival Severity: moderate Possible Cause: no cause identified Associated Symptoms: denies symptoms Allergies and Home Medications Allergies Coded Allergies: butorphanol (Unverified Adverse Reaction, Severe, 08/04/18) HALLUCINATIONS Penicillins (Unverified Adverse Reaction, Unknown, NAUSEA, 08/04/18) Uncoded Allergies: SYMBALTA (Adverse Reaction, Unknown, NAUSEA, 05/27/18) Home Medications Albuterol Sulfate 2.5 Mg/3 Ml Vial.neb, 2.5 MG INH Q6H, (Reported) Albuterol Sulfate 6.7 Gm Hfa.aer.ad, 2 PUFF INH Q6H PRN for SHORTNESS OF BREATH, (Reported) Atorvastatin Calcium 40 Mg Tablet, 40 MG PO HS, (Reported) Azithromycin 250 Mg Tablet, 250 MG PO DAILY Prescribed by: DEMARCO LOPEZ on 08/05/182106 Diclofenac Sodium 100 Gm Gel..gram., 1 GM TOP DAILY PRN, (Reported) Divalproex Sodium 500 Mg Tab.er.24h, 500 MG PO BID, (Reported) Fluticasone/Vilanterol 1 Each Blst.w.dev, 1 EACH IH DAILY, (Reported) Furosemide 20 Mg Tablet, 20 MG PO DAILY, (Reported) Insulin Aspart 100 Unit/1 Ml Susp, 30 UNITS SQ TIDWM, (Reported) Insulin Determir 1,000 Units/10 Ml Soln, 27 UNITS SQ BID, (Reported) Levothyroxine Sodium 125 Mcg Tablet, 125 MCG PO DAILY, (Reported) Metoprolol Tartrate 100 Mg Tablet, 100 MG PO BID, (Reported) Omeprazole 20 Mg Capsule.dr, 20 MG PO DAILY, (Reported) Potassium Chloride 10 Meq Capsule.er, 10 MEQ PO DAILY, (Reported) Pramipexole Di-HCl 0.5 Mg Tablet, 0.5 MG PO HS, (Reported) Prednisone 10 Mg Tab, 0 PO DAILY Take 6 tabs(60mg)daily, decrease by 1 tab(10mg) every other day. Prescribed by: DEMARCO LOPEZ on 08/05/182106 Pregabalin 200 Mg Capsule, 200 MG PO BID, (Reported) Sumatriptan Succinate 100 Mg Tablet, 100 MG PO PRN PRN for MIGRAINE, (Reported) Zolmitriptan 5 Mg [place], 5 MG NA DAILY, (Reported) Zolpidem Tartrate 5 Mg Tablet, 5 MG PO HS PRN for SLEEP, (Reported) Patient Home Medication List Home Medication List Reviewed: Yes Review of Systems Review of Systems Constitutional: see HPI EENTM: see HPI Respiratory: no symptoms reported Cardiovascular: no symptoms reported Genitourinary: no symptoms reported Musculoskeletal: no symptoms reported Skin: see HPI Psychiatric/Neurological: No Symptoms Reported Past Rejdudb-Onzkja-Prlxck Hx Patient Social History Drug of Choice: + IV METH USE Type Used: Cigarettes Former Smoker, Quit: Jul 08, 1990 Recent Foreign Travel: No Contact w/Someone Who Travel: No Recent Hopitalizations: No Immunizations Up To Date Tetanus Booster (TDap): Unknown PED Vaccines UTD: Yes Date of Influenza Vaccine: Jul 25, 2018 Seasonal Allergies Seasonal Allergies: No Past Medical History Surgeries: Yes Cardiac, Section, Gallbladder, Orthopedic, Tubal Ligation Respiratory: Yes (RESTRICTIVE LUNG DISEASE; LEFT CHEST DEFORMITY) Asthma, Pneumonia, Chronic Bronchitis, Sleep Apnea, COPD Currently Using CPAP: No Currently Using BIPAP: No Cardiac: Yes Coronary Artery Disease, Heart Attack, High Cholesterol, Hypertension Neurological: Yes Headaches /Migraines, Neuropathy, Seizure Disorder Reproductive Disorders: No Genitourinary: Yes UTI-Chronic Gastrointestinal: Yes Ulcer Musculoskeletal: Yes Fibromyalgia, Scoliosis, Chronic Back Pain Endocrine: Yes (MORBID OBESITY) Diabetes, Insulin dep, Hypothyroidsim HEENT: Yes (EDENTULOUS) Cancer: No Psychosocial: Yes Anxiety, Depression Integumentary: No Blood Disorders: No Physical Exam Vital Signs Capillary Refill : General Appearance: WD/WN, no apparent distress HEENT: PERRL/EOMI, normal ENT inspection Neck: non-tender, full range of motion Respiratory: no respiratory distress, no accessory muscle use Neurologic/Psychiatric: alert, normal mood/affect, oriented x 3 Skin: normal color, warm/dry Skin Problem Character: other (minimal erythema 1 cm nodule to the thenar eminence left hand she states is very tender. There is no fluctuance. There is some minor erythematous allergic looking papules to the volar aspect of the right hand area this erythema is well demarcated and she says it is itchy. I told her that I would give her an injection of Rocephin if it makes her feel better but I do not feel that it will change the outcome of illness and I to will just be prescribing a cream. She would like me to cut this open because she believes that some brown recluse spider bite. I advised her that I will not be coming this "because it's only been present for a few hours, not fluctuant and will help her symptoms.) Progress/Results/Core Measures Results/Orders My Orders Orders - NATE BASSETT APRN Ceftriaxone For Im Use (Rocephin For Im (12/08/19 20:00) Triamcinolone 0.1% Ointment (Kenalog 0.1 (12/08/19 21:00) Ketorolac Injection (Toradol Injection) (12/08/19 20:00) Lidocaine 1% Inj 20 Ml (Xylocaine 1% Inj (12/08/19 20:00) Departure Impression Primary Impression: Insect bite of right wrist Qualified Codes: S60.861A - Insect bite (nonvenomous) of right wrist, initial encounter; W57.XXXA - Bitten or stung by nonvenomous insect and other nonvenomous arthropods, initial encounter Additional Impression: lesion left hand Disposition: 01 HOME, SELF-CARE Condition: Stable Departure-Patient Inst. Decision time for Depature: 20:00 Referrals: NO,LOCAL PHYSICIAN (PCP/Family) Primary Care Physician Patient Instructions: Insect Bites and Stings Add. Discharge Instructions: Apply the steroid cream twice daily for 5 days. Return to ER for any concerns. All discharge instructions reviewed with patient and/or family. Voiced understanding. Scripts Triamcinolone Acet (Triamcinolone Acetonide 0.1% Cream) 15 Gm Cr 1 GM TP BID, #1 TUBE Prov: NATE BASSETT APRN 12/08/19 Mupirocin Calcium (Mupirocin) 15 Gm Cream..g. 15 GM TP BID, #1 TUBE Prov: NATE BASSETT APRN 12/08/19 NATE BASSETT APRN Dec 08, 2019 20:01
[2019-12-08] MEDS ORDERED: MUPI15CR11 TP (20:02)
[2019-12-08] MEDS ORDERED: TR1C15 TP (20:02)
[2019-12-08] MEDS ORDERED: TRIAMCINOLONE 0.1% CR (KENALOG) 15 GM TUBE ONE (20:08)
[2019-12-08] MEDS ORDERED: cloNIDine 0.1 MG (CATAPRES) TAB PO ONE (20:15)
[2019-12-08] MEDS ORDERED: TRIAMCINOLONE 0.1% OINT (KENALOG) 15 GM TUBE TOP SCH (21:00)
--- OUTSIDE RECORDS SUMMARY | 2019-12-09 00:26 | XMS REPORT ---
Author Author Felipe SMITH Organization [facility] Address [address] [place] [address] Care Team Providers Care Parts Facilitator Name Role Phone NELLIE SMITH Unavailable PROBLEMS Type Condition ICD9-CM Code OBY20-TX Code Onset Dates Condition S tatus SNOMED Code Problem Type 2 diabetes mellitus wit h hyperglycemia, without long-term current use of insulin E11.65 Active 31692349 Problem Moderately severe depression F32.2 A ctive 005450129 Problem Other chronic pain G89.29 Active 8 6087177 Problem Mild persistent asthma with status asthmaticus J45 .32 Active 498881106 Problem RLS (restless legs syndrome) G25.81 A ctive 90446094 Problem Fibromyalgia M79.7 Active 7313081 05 Problem Seizure disorder G40.909 Active 128 553630 Problem Morbid obesity E66.01 Active 17098 6002 Problem Pain in left ankle and joints of left foot M25.572 Active 442761163 Problem History of PSVT (paroxysmal supraventricular tachycardia) Z86.79 Active 509421876332786 Problem Mild episode of recurrent major depressive disorder F33.0 Active 101251820 Problem COPD mixed type J44.9 Active 1364 5005 Problem Hypertriglyceridemia E78.1 Active 547270312 Problem Chronic systolic congestive heart failure I50.22 Active 927197059 Problem Hypothyroidism (acquired) E03.9 Acti ve 954318220 Problem Scoliosis, unspecified scoliosis type, unspecifi ed spinal region M41.9 Active 511279445 Problem Insomnia, unspecified type G47.00 Act lilia 250118200 Problem Gastroesophageal reflux disease, esophagitis pre sence not specified K21.9 Active 830074441 Problem Primary osteoarthritis of right knee M17.11 Active 342739142743614 Problem Migraine without status migr ainosus, not intractable, unspecified migraine type G43.909 Active 05785152 ALLERGIES Substance Reaction Event Type Date Status Oxcarbazepine hives Drug Allergy 12 Aug, 2019 Active Neurontin face hurting Drug Allergy Aug, Active Duloxetine HCl flu like symptoms Drug Allergy Aug, Active Ultram Unknown Drug Allergy Aug, Active Tramadol HCl Unknown Drug Allergy Aug, Active Stadol unknown Drug Allergy Aug, Active Penicillin G Potassium Unknown Drug Allergy Aug, Activ e Ziprasidone HCl irritability Drug Allergy Aug, Active ENCOUNTERS Encounter Location Date Diagnosis [facility] [address] [address] Dec, [facility] [address] [place] [address] Sep, Viral gastroenteritis A08.4 and Morbid obesity E66.01 [place] [address] [address] Sep, Chronic systolic congestive heart failure I50.22 [place] [address] [address] Aug, [facility] [address] [address] Aug, Edema extremities R60.0 and Morbid obesity E66.01 [place] [address] [address] Aug, Type 2 diabetes mellitus wit h hyperglycemia, without long-term current use of insulin E11.65 [place] [address] [place] [id number] [place] [address] Aug, Type 2 diabetes mellitus wit h hyperglycemia, without long-term current use of insulin E11.65 ; Shortness of breath at rest R06.02 and Morbid obesity E66.01 [place] [address] [place] [id number] [place] [address] Aug, Chronic systolic congestive heart failure I50.22 [facility] [address] [place] [id number] [address] [place] [address] Aug, Type 2 diabetes mellitus wit h hyperglycemia, without long-term current use of insulin E11.65 [place] [address] [place] [id number] [place] [address] 25 Aug, 2018 Type 2 diabetes mellitus wit h hyperglycemia, without long-term current use of insulin E11.65 [facility] [address] [facility] [id number] [address] [place] [address] 20 Aug, 2018 [facility] [address] [address] Aug, [facility] [address] [address] Aug, [facility] [address] [address] Aug, SOB (shortness of breath) on exertion R06.02 [facility] [address] [address] Aug, [facility] [address] [address] Aug, [facility] [address] [place] [id number] [place] [address] Aug, Chronic systolic congestive heart failure I50.22 and COPD mixed type J44.9 [facility] [address] [place] [id number] [place] [address] Aug, [facility] [address] [place] [id number] [place] [address] Aug, [facility] [address] [place] [id number] [place] [address] Jul, [facility] [address] [address] Jul, Fibromyalgia M79.7 [facility] [address] [place] [id number] [address] [place] [address] Jul, Hypothyroidism (acquired) E0 3.9 [facility] [address] [address] Jul, Pain of left foot M79.672 [facility] [address] [place] [id number] [address] [place] [address] Jul, Pain of left foot M79.672 ; Pain in right foot M79.671 ; Bruising T14.8XXA ; Acute pain of right shoulder M25.511 ; Encounter for immunization Z23 and BMI 60.0-69.9, adult Z68.44 [facility] [address] [place] [id number] [address] [place] [address] Jul, [facility] [address] [address] Jul, [facility] [address] [place] [id number] [place] [address] Jul, Type 2 diabetes mellitus wit h hyperglycemia, without long-term current use of insulin E11.65 ; Edema, unspecified type R60.9 ; Migraine without status migrainosus, not intractable, unspecified migraine type G43.909 and BMI 60.0-69.9, adult Z68.44 [facility] [address] [place] [id number] [place] [address] Jun, [facility] [address] [place] [id number] [address] [place] [address] Jun, [facility] [address] [place] [id number] [address] [place] [address] Jun, [facility] [address] [place] [id number] [address] [place] [address] May, [facility] [address] [place] [id number] [address] [place] [address] May, [facility] [address] [place] [id number] [address] [place] [address] Apr, [facility] [address] [place] [id number] [address] [place] [address] Apr, Fibromyalgia M79.7 [place] [address] [facility] [id number] [address] [place] [address] Apr, [facility] [address] [facility] [id number] [address] [place] [address] Apr, Type 2 diabetes mellitus wit h hyperglycemia, without long-term current use of insulin E11.65 [place] [address] [facility] [id number] [address] [place] [address] Apr, [place] [address] [facility] [id number] [address] [place] [address] Apr, [place] [address] [place] [id number] [address] [place] [address] Mar, Hypothyroidism (acquired) E0 3.9 [place] [address] [place] [id number] [address] [place] [address] Mar, [place] [address] [facility] [id number] [address] [place] [address] Mar, Type 2 diabetes mellitus wit h hyperglycemia, without long-term current use of insulin E11.65 [place] [address] [facility] [id number] [address] [place] [address] Mar, Uncontrolled type 2 diabetes mellitus with hyperglycemia E11.65 and Type 2 diabetes mellitus with hyperglycemia, without long-term current use of insulin E11.65 [place] [address] [facility] [id number] [address] [place] [address] Mar, [place] [address] [facility] [id number] [address] [place] [address] Mar, Type 2 diabetes mellitus wit h hyperglycemia, without long-term current use of insulin E11.65 [place] [address] [facility] [id number] [address] [place] [address] Mar, Uncontrolled type 2 diabetes mellitus with hyperglycemia E11.65 and Type 2 diabetes mellitus with hyperglycemia, without long-term current use of insulin E11.65 [place] [address] [facility] [id number] [address] [place] [address] Mar, Primary osteoarthritis of ri ght knee M17.11 [facility] [address] [id number] [address] [place] [address] Mar, BMI 50.0-59.9, adult Z68.43 ; Uncontrolled type 2 diabetes mellitus with hyperglycemia E11.65 ; Primary osteoarthritis of right knee M17.11 and Allergic rhinitis, unspecified seasonality, unspecified trigger J30.9 [place] [address] [id number] [address] [place] [address] Mar, Type 2 diabetes mellitus wit h hyperglycemia, without long-term current use of insulin E11.65 [place] [address] [facility] [id number] [address] [place] [address] Jan, [place] [address] [facility] [id number] [address] [place] [address] Jan, [place] [address] [facility] [id number] [address] [place] [address] Jan, [place] [address] [id number] [address] [place] [address] Jan, Type 2 diabetes mellitus wit h hyperglycemia, without long-term current use of insulin E11.65 ; Uncontrolled type 2 diabetes mellitus with hyperglycemia E11.65 ; Acute pain of right knee M25.561 and BMI 50.0-59.9, adult Z68.43 [place] [address] [facility] [id number] [address] [place] [address] Jan, [place] [address] [id number] [address] [place] [address] Jan, [place] [address] [facility] [id number] [address] [place] [address] Jan, Type 2 diabetes mellitus wit h hyperglycemia, without long-term current use of insulin E11.65 [place] [address] [facility] [id number] [address] [place] [address] Jan, BMI 50.0-59.9, adult Z68.43 ; Dorsalgia, unspecified M54.9 ; Other chronic pain G89.29 ; Muscle spasm M62.838 ; Gastroesophageal reflux disease, esophagitis presence not specified K21.9 and Type 2 diabetes mellitus with hyperglycemia, without long-term current use of insulin E11.65 [facility] [address] [id number] [address] [place] [address] 15 Jan, 2018 [facility] [address] [id number] [address] [place] [address] Jan, [facility] [address] [id number] [address] [place] [address] Jan, [facility] [address] [id number] [address] [place] [address] Jan, [facility] [address] [id number] [address] [place] [address] Jan, [facility] [address] [id number] [address] [place] [address] Jan, [facility] [address] [id number] [address] [place] [address] Jan, [facility] [address] [id number] [address] [place] [address] Jan, [facility] [address] [id number] [address] [place] [address] Jan, [id number] [place] [address] Jan, Type 2 diabetes mellitus with hyperglyce licha, without long-term current use of insulin E11.65 [facility] [address] [id number] [address] [place] [address] Jan, Hypothyroidism (acquired) E0 3.9 [facility] [address] [id number] [address] [place] [address] Dec, Type 2 diabetes mellitus wit h hyperglycemia, without long-term current use of insulin E11.65 ; Hypothyroidism (acquired) E03.9 ; Hypertriglyceridemia E78.1 ; Insomnia, unspecified type G47.00 ; Fibromyalgia M79.7 ; Mild episode of recurrent major depressive disorder F33.0 ; BMI 50.0- 59.9, adult Z68.43 and Morbid obesity E66.01 [facility] [place] [address] [id number] [place] [address] Sep, [facility] [place] [address] [id number] [place] [address] Sep, [facility] [place] [address] [id number] [place] [address] Sep, [facility] [place] [address] [id number] [place] [address] Aug, Gastroenteritis K52.9 and BMI 50.0-59.9, adult Z68.43 [facility] [place] [address] [id number] [place] [address] Aug, [facility] [place] [address] [id number] [place] [address] Aug, [facility] [place] [address] [id number] [place] [address] Aug, [facility] [place] [address] [id number] [place] [address] Aug, Postoperative pain of extremity G89.18 [facility] [place] [address] [id number] [place] [address] Aug, [facility] [place] [address] [id number] [place] [address] Aug, [facility] [place] [address] [id number] [place] [address] Aug, [facility] [place] [address] [id number] [place] [address] Aug, [facility] [place] [address] [id number] [place] [address] Aug, [facility] [place] [address] [id number] [place] [address] Aug, [facility] [address] [facility] [id number] [address] [place] [address] Aug, Abnormal EKG R94.[address] [id number] [id number] Aug, [facility] [address] [id number] [place] [address] Jul, Pain in left ankle and joints of left fo ot M25.572 ; Morbid obesity E66.01 and History of PSVT (paroxysmal supraventricular tachycardia) Z86.79 [facility] [address] [id number] [place] [address] Jul, Type 2 diabetes mellitus with hyperglyce licha, without long-term current use of insulin E11.65 ; Hypothyroidism (acquired) E03.9 and Pain in left ankle and joints of left foot M25.572 [facility] [address] [id number] [place] [address] Jun, Nausea and vomiting in adult R11.2 and B ME 50.0-59.9, adult Z68.43 [facility] [place] [address] [id number] [place] [address] Jun, [facility] [address] [id number] [place] [address] Jun, Pain in left ankle and joints of left fo ot M25.572 [facility] [address] [id number] [place] [address] Jun, [facility] [address] [id number] [place] [address] Jun, Type 2 diabetes mellitus with hyperglyce licha, without long-term current use of insulin E11.65 ; Other chronic pain G89.29 ; Pain in left ankle and joints of left foot M25.572 and BMI 50.0-59.9, adult Z68.43 [facility] [address] [id number] [place] [id number] May, Hypertriglyceridemia E78.1 and Hypothyro idism (acquired) E03.9 [facility] [address] [id number] [place] [address] 14 May, 2017 Type 2 diabetes mellitus with hyperglyce licha, without long-term current use of insulin E11.65 ; Hypothyroidism (acquired) E03.9 ; Fibromyalgia M79.7 ; Seizure disorder G40.909 ; Scoliosis, unspecified scoliosis type, unspecified spinal region M41.9 ; Mild persistent asthma with status asthmaticus J45.32 ; RLS (restless legs syndrome) G25.81 ; Moderately severe depression F32.2 ; Morbid obesity E66.01 ; Pain in left ankle and joints of left foot M25.572 and Other chronic pain G89.29 [facility] [employer] [address] [id number] [place] [address] 09 May, 2017 [facility] [employer] [address] [id number] [place] [address] 07 May, 2017 Left foot pain M79.672 [facility] [employer] [address] [id number] [place] [address] May, BMI 40.0-44.9, adult Z68.41 and Left stacia t pain M79.672 IMMUNIZATIONS No Known Immunizations SOCIAL HISTORY Never Assessed REASON FOR VISIT bilateral lower leg swelling et redness for the past 2 days. denies hx of cellul itis. [email or web address] PLAN OF CARE Activity Details Follow Up 1 Week with PCP Reason: VITAL SIGNS Height 5'0 in 2018-09-10 Weight 336.2 lbs 2018-09-10 Temperature 97.2 degrees Fahrenheit 2018-09-10 Heart Rate 110 bpm 2018-09-10 Respiratory Rate 24 2018-09-10 BMI 65.65 kg/m2 2018-09-10 Blood pressure systolic 148 mmHg 2018-09-10 Blood pressure diastolic 78 mmHg 2018-09-10 MEDICATIONS Medication Instructions Dosage Frequency Start Date End Date Duration S melanie FreeStyle Lidia Findlay - EX- E11.65 4 times a day test blood sugar 6h Aug, Active Glimepiride 2 MG Orally Once a day 1 tablet with breakf ast or the first main meal of the day 24h 30 Active Ventolin HFA 108 (90 Base) MCG/ACT Inhalation every 6 hrs 2 puffs a s needed 6h May, 30 days Active FreeStyle Lidia Sensor System - DX- E11.65 4 times a day test blood sugar 6h 25 Aug, 2018 Active Mirapex 1 MG Orally Once a day 1 tablet before bedtime 24h 30 Active BD Insulin Syringe 25G X 5/8 as directed Apr, Active Divalproex Sodium ER 500 mg Orally 2 times a day 1 tablet 12h 30 Active Nebulizer Compressor Act lilia Zolpidem Tartrate 5 mg Orally Once a day 1 tablet at bedtime 24h 30 Active Metoprolol Tartrate 100 mg Orally Twice a day 1 tablet with food 12h 30 Active Lancets - test blood sugar 8h Activ e Sumatriptan Succinate 11 MG/NOSEPC Nasally Once a day 1 dos e in each nostril as needed one time 24h Jul, 1 day(s) Active WrapMail Ultra 2 w/Device subcutaneously 3 times a day use d evice to check blood sugar 8h Aug, Active Blood Glucose Test - subcutaneously 3 times a day use 1 stri p to check blood sugar 8h Aug, Active Lyrica 200 mg Orally twice a day 1 capsule 12h 30 da ys Active Proventil HFA 108 (90 Base) MCG/ACT Inhalation every 6 hrs 2 puffs as needed 6h Active NovoLog 100 UNIT/ML Subcutaneous 3 times a day before meals inject 30 units 30 Active Levemir 100 UNIT/ML Subcutaneous 2 times a day Inject 32 units 12h Active Baclofen 10 mg Orally bid prn muscle spasm 1 tablet with food or milk 30 Active Oxygen 2 L/NC as directed Aug, A ctive WrapMail Ultra Blue - In Vitro 4 times a day test blood sugar 6h Jan, 28 days Active Furosemide 80 MG Orally Once a day 1 tablet 24h Aug, 5 days Active ReliOn Insulin Syringe 31G X 5/16 USE DIRECTED FIVE TIMES BLU LY 20 Active Ipratropium-Albuterol 0.5-2.5 (3) MG/3ML Inhalation every 6 hrs 3 m l 6h Aug, Active Zomig 5 mg One spray as needed, may repeat in 2 hours for headache. Max of 2 sprays per day 30 days Active Atorvastatin Calcium 40 MG Orally Once a day 1 tablet 24h 90 days Active Diclofenac Sodium 1 % apply 4 grams to affected area 12h 12 Active Potassium Chloride Sharon ER 10 MEQ Orally Once a day 1 tablet with f ood 24h Jul, 30 day(s) Active EQ Omeprazole 20 mg Orally Once a day 1 tablet 24h 3 0 Active OneTouch Ultra 2 w/Device subcutaneously 4 times a day as directed 6h Jan, 28 days Active Furosemide 80 MG Orally Once a day 1 tablet 24h Aug, 7 days Active Furosemide 40 mg Orally Once a day 1 tablet 24h Jul, 30 day(s) Active Levothyroxine Sodium 125 mcg Orally Once a day 1 tablet on an empty stomach in the morning 24h 30 Active RESULTS No Results PROCEDURES No Known procedures INSTRUCTIONS MEDICATIONS ADMINISTERED No Known Medications MEDICAL (GENERAL) HISTORY Type Description Date Medical History DMII Medical History Hypothyroid Medical History restless leg Medical History fibromyalgia Medical History scoliosis Medical History osteopenia Medical History epilepsy w/ grand mal seziure Medical History asthma Medical History tachycardia Medical History COPD Surgical History c-sections 1987,1988 Surgical History D&C 1991 Surgical History Cholecystectomy 1989 Surgical History back surgery 1984 Surgical History cardiac ablation 2008 Surgical History left ankle surgery by Dr. Alexis Hassan [place] [facility] 08/16/2017 Hospitalization History surgeries Hospitalization History childbirth Hospitalization History Stroke/seizure 2008 Hospitalization History [facility], lowering oxygen 08/2018
--- OUTSIDE RECORDS SUMMARY | 2019-12-09 00:26 | XMS REPORT ---
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 Name Role Phone FRANC CHAPPELL Unavailable PROBLEMS Type Condition ICD9-CM Code IOL31-BV Code Onset Dates Condition S tatus SNOMED Code Problem Type 2 diabetes mellitus wit h hyperglycemia, without long-term current use of insulin E11.65 Active 06020005 Problem Moderately severe depression F32.2 A ctive 418610414 Problem Other chronic pain G89.29 Active 8 9237438 Problem Mild persistent asthma with status asthmaticus J45 .32 Active 271580694 Problem RLS (restless legs syndrome) G25.81 A ctive 58567351 Problem Fibromyalgia M79.7 Active 1184056 05 Problem Seizure disorder G40.909 Active 128 673561 Problem Morbid obesity E66.01 Active 59333 6002 Problem Pain in left ankle and joints of left foot M25.572 Active 947414922 Problem History of PSVT (paroxysmal supraventricular tachycardia) Z86.79 Active 408520170214099 Problem Mild episode of recurrent major depressive disorder F33.0 Active 226403129 Problem COPD mixed type J44.9 Active 1364 5005 Problem Hypertriglyceridemia E78.1 Active 813062674 Problem Chronic systolic congestive heart failure I50.22 Active 292203698 Problem Hypothyroidism (acquired) E03.9 Acti ve 277517155 Problem Scoliosis, unspecified scoliosis type, unspecifi ed spinal region M41.9 Active 989535839 Problem Insomnia, unspecified type G47.00 Act lilia 151636107 Problem Gastroesophageal reflux disease, esophagitis pre sence not specified K21.9 Active 699606599 Problem Primary osteoarthritis of right knee M17.11 Active 730324089450539 Problem Migraine without status migr ainosus, not intractable, unspecified migraine type G43.909 Active 32352002 ALLERGIES No Information ENCOUNTERS Encounter Location Date Diagnosis [facility] [address] [place] [address] Sep, [facility] [address] [place] [address] Sep, Viral gastroenteritis A08.4 and Morbid obesity E66.01 [facility] [address] [place] [id number] [place] [address] Sep, Chronic systolic congestive heart failure I50.22 [facility] [address] [place] [id number] [place] [address] Aug, [facility] [address] [address] Aug, Edema extremities R60.0 and Morbid obesity E66.01 [place] [address] [place] [id number] [place] [address] Aug, Type 2 diabetes mellitus wit h hyperglycemia, without long-term current use of insulin E11.65 [place] [address] [address] Aug, Type 2 diabetes mellitus wit h hyperglycemia, without long-term current use of insulin E11.65 ; Shortness of breath at rest R06.02 and Morbid obesity E66.01 [place] [address] [place] [address] Aug, Chronic systolic congestive heart failure I50.22 [place] [address] [place] [address] Aug, Type 2 diabetes mellitus wit h hyperglycemia, without long-term current use of insulin E11.65 [place] [address] [place] [id number] [place] [address] Aug, Type 2 diabetes mellitus wit h hyperglycemia, without long-term current use of insulin E11.65 [place] [address] [place] [id number] [place] [address] Aug, [place] [address] [place] [id number] [place] [address] Aug, [facility] [address] [facility] [id number] [address] [place] [address] Aug, [facility] [address] [facility] [id number] [address] [place] [address] Aug, SOB (shortness of breath) on exertion R06.02 [facility] [address] [place] [id number] [place] [address] Aug, [facility] [address] [place] [id number] [place] [address] Aug, [facility] [address] [place] [id number] [place] [address] Aug, Chronic systolic congestive heart failure I50.22 and COPD mixed type J44.9 [facility] [address] [place] [id number] [place] [address] Aug, [facility] [address] [place] [id number] [place] [phone] Aug, [facility] [address] [place] [id number] [place] [address] Jul, [facility] [address] [place] [id number] [place] [address] Jul, Fibromyalgia M79.7 [facility] [address] [address] Jul, Hypothyroidism (acquired) E0 3.9 [facility] [address] [facility] [id number] [address] [place] [address] Jul, Pain of left foot M79.672 [facility] [address] [place] [id number] [place] [address] Jul, Pain of left foot M79.672 ; Pain in right foot M79.671 ; Bruising T14.8XXA ; Acute pain of right shoulder M25.511 ; Encounter for immunization Z23 and BMI 60.0-69.9, adult Z68.44 [facility] [address] [facility] [id number] [address] [place] [address] Jul, [facility] [address] [facility] [id number] [address] [place] [address] Jul, [facility] [address] [facility] [id number] [address] [place] [address] Jul, Type 2 diabetes mellitus wit h hyperglycemia, without long-term current use of insulin E11.65 ; Edema, unspecified type R60.9 ; Migraine without status migrainosus, not intractable, unspecified migraine type G43.909 and BMI 60.0-69.9, adult Z68.44 [facility] [address] [facility] [id number] [address] [place] [address] Jun, [facility] [address] [place] [id number] [place] [address] Jun, [facility] [address] [facility] [id number] [address] [place] [address] Jun, [facility] [address] [facility] [id number] [address] [place] [address] May, [facility] [address] [place] [id number] [place] [address] May, [facility] [address] [facility] [id number] [address] [place] [address] Apr, [facility] [address] [facility] [id number] [address] [place] [address] Apr, Fibromyalgia M79.7 [facility] [address] [facility] [id number] [address] [place] [address] Apr, [facility] [address] [facility] [id number] [address] [place] [address] Apr, Type 2 diabetes mellitus wit h hyperglycemia, without long-term current use of insulin E11.65 [facility] [address] [facility] [id number] [address] [place] [id number] Apr, [place] [address] [facility] [id number] [address] [place] [address] Apr, [place] [address] [facility] [id number] [address] [place] [id number] Mar, Hypothyroidism (acquired) E0 3.9 [place] [address] [place] [id number] [place] [address] Mar, [place] [address] [facility] [id number] [place] [address] 24 Mar, 2018 Type 2 diabetes mellitus wit h hyperglycemia, without long-term current use of insulin E11.65 [place] [address] [place] [id number] [place] [id number] 17 Mar, 2018 Uncontrolled type 2 diabetes mellitus with hyperglycemia E11.65 and Type 2 diabetes mellitus with hyperglycemia, without long-term current use of insulin E11.65 [place] [address] [place] [id number] 13 Mar, 2018 [place] [address] [facility] [id number] [address] [place] [address] Mar, Type 2 diabetes mellitus wit h hyperglycemia, without long-term current use of insulin E11.65 [place] [address] [place] [id number] [place] [address] 10 Mar, 2018 Uncontrolled type 2 diabetes mellitus with hyperglycemia E11.65 and Type 2 diabetes mellitus with hyperglycemia, without long-term current use of insulin E11.65 [place] [address] [facility] [id number] [address] [place] [id number] 06 Mar, 2018 Primary osteoarthritis of ri ght knee M17.11 [place] [address] [facility] [id number] [address] [place] [id number] 06 Mar, 2018 BMI 50.0-59.9, adult Z68.43 ; Uncontrolled type 2 diabetes mellitus with hyperglycemia E11.65 ; Primary osteoarthritis of right knee M17.11 and Allergic rhinitis, unspecified seasonality, unspecified trigger J30.9 [facility] [address] [id number] [address] [place] [address] Mar, Type 2 diabetes mellitus wit h hyperglycemia, without long-term current use of insulin E11.65 [place] [id number] [facility] [id number] [address] [place] [id number] Jan, [facility] [address] [facility] [id number] [address] [place] [address] Jan, [place] [address] [facility] [id number] [address] [place] [id number] Jan, [place] [address] [id number] [address] [place] [address] Jan, Type 2 diabetes mellitus wit h hyperglycemia, without long-term current use of insulin E11.65 ; Uncontrolled type 2 diabetes mellitus with hyperglycemia E11.65 ; Acute pain of right knee M25.561 and BMI 50.0-59.9, adult Z68.43 [place] [address] [facility] [id number] [address] [place] [id number] Jan, [place] [address] [facility] [id number] [address] [place] [id number] Jan, [place] [address] [facility] [id number] [address] [place] [address] Jan, Type 2 diabetes mellitus wit h hyperglycemia, without long-term current use of insulin E11.65 [place] [address] [facility] [id number] [address] [place] [address] Jan, BMI 50.0-59.9, adult Z68.43 ; Dorsalgia, unspecified M54.9 ; Other chronic pain G89.29 ; Muscle spasm M62.838 ; Gastroesophageal reflux disease, esophagitis presence not specified K21.9 and Type 2 diabetes mellitus with hyperglycemia, without long-term current use of insulin E11.65 [place] [address] [facility] [id number] [address] [place] [id number] Jan, [place] [address] [facility] [id number] [address] [place] [address] Jan, [facility] [address] [id number] [address] [place] [phone] Jan, [facility] [address] [facility] [id number] [address] [place] [phone] Jan, [facility] [address] [facility] [id number] [address] [place] [phone] Jan, [facility] [address] [facility] [id number] [address] [place] [id number] Jan, [facility] [address] [id number] [address] [place] [id number] Jan, [facility] [address] [facility] [id number] [address] [place] [address] Jan, [facility] [address] [facility] [id number] [address] [place] [id number] Jan, [facility] [address] [id number] [place] [address] Jan, Type 2 diabetes mellitus with hyperglyce licha, without long-term current use of insulin E11.65 [facility] [address] [facility] [id number] [address] [place] [id number] Jan, Hypothyroidism (acquired) E0 3.9 [facility] [address] [facility] [id number] [address] [place] [address] Dec, Type 2 diabetes mellitus wit h hyperglycemia, without long-term current use of insulin E11.65 ; Hypothyroidism (acquired) E03.9 ; Hypertriglyceridemia E78.1 ; Insomnia, unspecified type G47.00 ; Fibromyalgia M79.7 ; Mild episode of recurrent major depressive disorder F33.0 and BMI 50.0- 59.9, adult Z68.43 [facility] [address] [id number] [place] [address] Sep, [facility] [id number] [place] [address] Sep, [facility] [place] [address] [id number] [place] [address] Sep, [facility] [place] [address] [id number] [place] [address] Aug, Gastroenteritis K52.9 and BMI 50.0-59.9, adult Z68.43 [facility] [place] [address] [id number] [place] [address] Aug, [facility] [place] [address] [id number] [place] [address] Aug, [facility] [place] [address] [id number] [place] [address] Aug, [facility] [place] [address] [id number] [place] [address] Aug, Postoperative pain of extremity G89.18 [facility] [place] [address] [id number] [place] [address] Aug, [facility] [place] [address] [id number] [place] [address] Aug, [facility] [place] [address] [id number] [place] [address] Aug, [facility] [place] [address] [id number] [place] [address] Aug, [facility] [place] [address] [id number] [place] [address] Aug, [facility] [place] [address] [id number] [place] [address] Aug, [facility] [address] [facility] [id number] [address] [place] [address] Aug, Abnormal EKG R94.[address] [facility] [address] [id number] [place] [id number] Aug, [facility] [place] [address] [id number] [place] [address] Jul, Pain in left ankle and joints of left fo ot M25.572 ; Morbid obesity E66.01 and History of PSVT (paroxysmal supraventricular tachycardia) Z86.79 [facility] [address] [id number] [place] [address] Jul, Type 2 diabetes mellitus with hyperglyce licha, without long-term current use of insulin E11.65 ; Hypothyroidism (acquired) E03.9 and Pain in left ankle and joints of left foot M25.572 [facility] [address] [id number] [place] [address] Jun, Nausea and vomiting in adult R11.2 and B OR 50.0-59.9, adult Z68.43 [facility] [address] [id number] [place] [address] Jun, [facility] [address] [id number] [place] [address] Jun, Pain in left ankle and joints of left fo ot M25.572 [facility] [address] [id number] [place] [address] Jun, [facility] [id number] [place] [address] Jun, Type 2 diabetes mellitus with hyperglyce licha, without long-term current use of insulin E11.65 ; Other chronic pain G89.29 ; Pain in left ankle and joints of left foot M25.572 and BMI 50.0-59.9, adult Z68.43 [facility] [id number] [place] [id number] 15 May, 2017 Hypertriglyceridemia E78.1 and Hypothyro idism (acquired) E03.9 [facility] [address] [id number] [place] [address] 14 May, 2017 Type 2 diabetes mellitus [...] foot M25.572 and Other chronic pain G89.29 [facility] [address] [id number] [place] [address] May, [facility] [address] [id number] [place] [address] May, Left foot pain M79.672 [facility] [employer] [address] [id number] [place] [address] May, BMI 40.0-44.9, adult Z68.41 and Left stacia t pain M79.672 IMMUNIZATIONS No Known Immunizations SOCIAL HISTORY Never Assessed REASON FOR VISIT LVM PLAN OF CARE VITAL SIGNS MEDICATIONS Unknown Medications RESULTS No Results PROCEDURES No Known procedures [...] left ankle surgery by Dr. Alexis Hassan [facility] 08/16/2017 Hospitalization History surgeries Hospitalization History childbirth Hospitalization History Stroke/seizure 2008 Hospitalization History [facility] ER, lowering oxygen 08/2018
--- OUTSIDE RECORDS SUMMARY | 2019-12-09 00:26 | XMS REPORT ---
Author Author Felipe CHAPPELL Organization [facility] Address [address] [place] [address] Care Team Providers Care Code Clerk Name Role Phone FRANC CHAPPELL Unavailable PROBLEMS Type Condition ICD9-CM Code [id number] Code Onset Dates Condition S tatus SNOMED Code Problem Type 2 diabetes mellitus wit h hyperglycemia, without long-term current use of insulin E11.65 Active 62433141 Problem Moderately severe depression F32.2 A ctive 261559047 Problem Other chronic pain G89.29 Active 8 2435867 Problem Mild persistent asthma with status asthmaticus J45 .32 Active 625131084 Problem RLS (restless legs syndrome) G25.81 A ctive 64907599 Problem Fibromyalgia M79.7 Active 9783242 05 Problem Seizure disorder G40.909 Active 128 842388 Problem Morbid obesity E66.01 Active 05066 6002 Problem Pain in left ankle and joints of left foot M25.572 Active 977273508 Problem History of PSVT (paroxysmal supraventricular tachycardia) Z86.79 Active 710016693476551 Problem Mild episode of recurrent major depressive disorder F33.0 Active 439377154 Problem COPD mixed type J44.9 Active 1364 5005 Problem Hypertriglyceridemia E78.1 Active 916534254 Problem Chronic systolic congestive heart failure I50.22 Active 698933023 Problem Hypothyroidism (acquired) E03.9 Acti ve 293016609 Problem Scoliosis, unspecified scoliosis type, unspecifi ed spinal region M41.9 Active 890247939 Problem Insomnia, unspecified type G47.00 Act lilia 207132163 Problem Gastroesophageal reflux disease, esophagitis pre sence not specified K21.9 Active 599308036 Problem Primary osteoarthritis of right knee M17.11 Active 167992130206590 Problem Migraine without status migr ainosus, not intractable, unspecified migraine type G43.909 Active 83336497 ALLERGIES Substance Reaction Event Type Date Status Oxcarbazepine hives Drug Allergy Aug, Active Neurontin face hurting Drug Allergy Aug, Active Duloxetine HCl flu like symptoms Drug Allergy Aug, Active Ultram Unknown Drug Allergy Aug, Active Tramadol HCl Unknown Drug Allergy Aug, Active Stadol unknown Drug Allergy Aug, Active Penicillin G Potassium Unknown Drug Allergy Aug, Activ e Ziprasidone HCl irritability Drug Allergy Aug, Active ENCOUNTERS Encounter Location Date Diagnosis [facility] [address] [place] [address] Sep, Viral gastroenteritis A08.4 and Morbid obesity E66.01 [place] [address] [address] Sep, Chronic systolic congestive heart failure I50.22 [place] [address] [address] Aug, [facility] [address] [address] Aug, Edema extremities R60.0 and Morbid obesity E66.01 [place] [address] [address] Aug, Type 2 diabetes mellitus wit h hyperglycemia, without long-term current use of insulin E11.65 [place] [address] [address] Aug, Type 2 diabetes mellitus wit h hyperglycemia, without long-term current use of insulin E11.65 ; Shortness of breath at rest R06.02 and Morbid obesity E66.01 [place] [address] [place] [id number] [place] [address] Aug, Chronic systolic congestive heart failure I50.22 [place] [address] [address] Aug, Type 2 diabetes mellitus wit h hyperglycemia, without long-term current use of insulin E11.65 [place] [address] [place] [id number] [place] [address] Aug, Type 2 diabetes mellitus wit h hyperglycemia, without long-term current use of insulin E11.65 [facility] [address] [facility] [id number] [address] [place] [address] Aug, [facility] [address] [facility] [id number] [address] [place] [address] Aug, [facility] [address] [place] [id number] [place] [address] Aug, [facility] [address] [place] [id number] [place] [address] Aug, SOB (shortness of breath) on exertion R06.02 [facility] [address] [address] Aug, [facility] [address] [place] [id number] [place] [address] Aug, [facility] [address] [address] Aug, Chronic systolic congestive heart failure I50.22 and COPD mixed type J44.9 [facility] [address] [address] Aug, [facility] [address] [place] [id number] [place] [address] Aug, [facility] [address] [place] [id number] [address] [place] [address] Jul, [facility] [address] [place] [id number] [address] [place] [address] Jul, Fibromyalgia M79.7 [facility] [address] [place] [id number] [place] [address] Jul, Hypothyroidism (acquired) E0 3.9 [facility] [address] [facility] [id number] [address] [place] [address] Jul, Pain of left foot M79.672 [facility] [address] [address] Jul, Pain of left foot M79.672 ; Pain in right foot M79.671 ; Bruising T14.8XXA ; Acute pain of right shoulder M25.511 ; Encounter for immunization Z23 and BMI 60.0-69.9, adult Z68.44 [facility] [address] [address] Jul, [facility] [address] [address] Jul, [facility] [address] [address] Jul, Type 2 diabetes mellitus wit h hyperglycemia, without long-term current use of insulin E11.65 ; Edema, unspecified type R60.9 ; Migraine without status migrainosus, not intractable, unspecified migraine type G43.909 and BMI 60.0-69.9, adult Z68.44 [facility] [address] [address] Jun, [facility] [address] [address] Jun, [facility] [address] [address] Jun, [facility] [address] [address] May, [facility] [address] [address] May, [facility] [address] [place] [id number] [address] [place] [address] Apr, [facility] [address] [address] Apr, Fibromyalgia M79.7 [facility] [address] [place] [id number] [place] [address] Apr, [place] [id number] [facility] [id number] [address] [place] [address] Apr, Type 2 diabetes mellitus wit h hyperglycemia, without long-term current use of insulin E11.65 [facility] [address] [facility] [id number] [address] [place] [address] Apr, [place] [address] [place] [id number] [place] [address] Apr, [facility] [address] [place] [id number] [place] [address] Mar, Hypothyroidism (acquired) E0 3.9 [place] [address] [place] [id number] [place] [address] Mar, [place] [address] [facility] [id number] [address] [place] [address] Mar, Type 2 diabetes mellitus wit h hyperglycemia, without long-term current use of insulin E11.65 [place] [address] [place] [id number] [place] [address] Mar, Uncontrolled type 2 diabetes mellitus with hyperglycemia E11.65 and Type 2 diabetes mellitus with hyperglycemia, without long-term current use of insulin E11.65 [place] [address] [facility] [id number] [address] [place] [address] Mar, [place] [address] [facility] [id number] [address] [place] [address] Mar, Type 2 diabetes mellitus wit h hyperglycemia, without long-term current use of insulin E11.65 [facility] [address] [facility] [id number] [address] [place] [address] 10 Mar, 2018 Uncontrolled type 2 diabetes mellitus with hyperglycemia E11.65 and Type 2 diabetes mellitus with hyperglycemia, without long-term current use of insulin E11.65 [facility] [address] [facility] [id number] [address] [place] [address] 06 Mar, 2018 Primary osteoarthritis of ri ght knee M17.11 [facility] [address] [facility] [id number] [address] [place] [address] Mar, BMI 50.0-59.9, adult Z68.43 ; Uncontrolled type 2 diabetes mellitus with hyperglycemia E11.65 ; Primary osteoarthritis of right knee M17.11 and Allergic rhinitis, unspecified seasonality, unspecified trigger J30.9 [place] [address] [facility] [id number] [address] [place] [address] Mar, Type 2 diabetes mellitus wit h hyperglycemia, without long-term current use of insulin E11.65 [place] [address] [facility] [id number] [address] [place] [address] Jan, [place] [address] [facility] [id number] [address] [place] [address] Jan, [place] [address] [facility] [id number] [address] [place] [address] Jan, [place] [address] [facility] [id number] [address] [place] [address] Jan, Type 2 diabetes mellitus wit h hyperglycemia, without long-term current use of insulin E11.65 ; Uncontrolled type 2 diabetes mellitus with hyperglycemia E11.65 ; Acute pain of right knee M25.561 and BMI 50.0-59.9, adult Z68.43 [place] [address] [facility] [id number] [address] [place] [address] Jan, [place] [address] [facility] [id number] [address] [place] [address] Jan, [place] [address] [facility] [id number] [address] [place] [address] Jan, Type 2 diabetes mellitus wit h hyperglycemia, without long-term current use of insulin E11.65 [place] [address] [facility] [id number] [address] [place] [address] Jan, BMI 50.0-59.9, adult Z68.43 ; Dorsalgia, unspecified M54.9 ; Other chronic pain G89.29 ; Muscle spasm M62.838 ; Gastroesophageal reflux disease, esophagitis presence not specified K21.9 and Type 2 diabetes mellitus with hyperglycemia, without long-term current use of insulin E11.65 [facility] [address] [id number] [address] [place] [address] Jan, [facility] [address] [id number] [address] [place] [address] Jan, [facility] [address] [id number] [address] [place] [address] Jan, [facility] [address] [id number] [address] [place] [address] Jan, [facility] [address] [id number] [address] [place] [address] Jan, [facility] [address] [id number] [address] [place] [address] Jan, [facility] [address] [id number] [address] [place] [address] Jan, [facility] [address] [id number] [address] [place] [address] Jan, [facility] [address] [id number] [address] [place] [address] Jan, [id number] [place] [address] Jan, Type 2 diabetes mellitus with hyperglyce licha, without long-term current use of insulin E11.65 [facility] [address] [id number] [address] [place] [address] Jan, Hypothyroidism (acquired) E0 3.9 [facility] [address] [id number] [address] [place] [address] Dec, Type 2 diabetes mellitus wit h hyperglycemia, without long-term current use of insulin E11.65 ; Hypothyroidism (acquired) E03.9 ; Hypertriglyceridemia E78.1 ; Insomnia, unspecified type G47.00 ; Fibromyalgia M79.7 ; Mild episode of recurrent major depressive disorder F33.0 ; BMI 50.0- 59.9, adult Z68.43 and Morbid obesity E66.01 [facility] [place] [address] [id number] [place] [address] Sep, [facility] [place] [address] [id number] [place] [address] Sep, [facility] [place] [address] [id number] [place] [address] Sep, [facility] [place] [address] [id number] [place] [address] Aug, Gastroenteritis K52.9 and BMI 50.0-59.9, adult Z68.43 [facility] [place] [address] [id number] [place] [address] Aug, [facility] [place] [address] [id number] [place] [address] Aug, [facility] [place] [address] [id number] [place] [address] Aug, [facility] [place] [address] [id number] [place] [address] Aug, Postoperative pain of extremity G89.18 [facility] [place] [address] [id number] [place] [address] Aug, [facility] [place] [address] [id number] [place] [address] Aug, [facility] [place] [address] [id number] [place] [address] Aug, [facility] [place] [address] [id number] [place] [address] Aug, [facility] [place] [address] [id number] [place] [address] Aug, [facility] [place] [address] [id number] [place] [address] Aug, [facility] [address] [facility] [id number] [address] [place] [address] Aug, Abnormal EKG R94.[address] [facility] [place] [address] [id number] [place] [id number] Aug, [facility] [employer] [address] [id number] [place] [address] Jul, Pain in left ankle and joints of left fo ot M25.572 ; Morbid obesity E66.01 and History of PSVT (paroxysmal supraventricular tachycardia) Z86.79 [facility] [address] [id number] [place] [address] Jul, Type 2 diabetes mellitus with hyperglyce licha, without long-term current use of insulin E11.65 ; Hypothyroidism (acquired) E03.9 and Pain in left ankle and joints of left foot M25.572 [facility] [employer] [address] [id number] [place] [address] Jun, Nausea and vomiting in adult R11.2 and B [place] 50.0-59.9, adult Z68.43 [facility] [employer] [address] [id number] [place] [address] Jun, [facility] [employer] [address] [id number] [place] [address] Jun, Pain in left ankle and joints of left fo ot M25.572 [facility] [employer] [facility] [address] [id number] [place] [address] Jun, [facility] [employer] [address] [id number] [place] [address] Jun, Type 2 diabetes mellitus with hyperglyce licha, without long-term current use of insulin E11.65 ; Other chronic pain G89.29 ; Pain in left ankle and joints of left foot M25.572 and BMI 50.0-59.9, adult Z68.43 [facility] [address] [id number] [place] [id number] 15 May, 2017 Hypertriglyceridemia E78.1 and Hypothyro idism (acquired) E03.9 [facility] [address] [id number] [place] [address] 14 May, 2017 Type 2 diabetes mellitus [...] foot M25.572 and Other chronic pain G89.29 [facility] [address] [id number] [place] [address] May, [facility] [address] [id number] [place] [address] May, Left foot pain M79.672 [facility] Management[facility] [id number] [place] [address] May, BMI 40.0-44.9, adult Z68.41 and Left stacia t pain M79.672 IMMUNIZATIONS No Known Immunizations SOCIAL HISTORY Never Assessed REASON FOR VISIT Foot Pain, both feet are beat red, feels like a burn, 3-4 days -Henry WEEMS PLAN OF CARE VITAL SIGNS Height 5'0 in 2018-09-06 Weight 349.8 lbs 2018-09-06 Temperature 98.0 degrees Fahrenheit 2018-09-06 Heart Rate 114 bpm 2018-09-06 Respiratory Rate 20 2018-09-06 Oximetry 95 % 2018-09-06 BMI 68.31 kg/m2 2018-09-06 Blood pressure systolic 136 mmHg 2018-09-06 Blood pressure diastolic 72 mmHg 2018-09-06 MEDICATIONS Medication Instructions Dosage Frequency Start Date End Date Duration S tatus NovoLog 100 UNIT/ML Subcutaneous 3 times a day before meals inject 30 units 30 Active Zomig 5 mg One spray as needed, may repeat in 2 hours for headache. Max of 2 sprays per day 30 days Active Potassium Chloride Sharon ER 10 MEQ Orally Once a day 1 tablet with f ood 24h Jul, 30 day(s) Active Furosemide 40 mg Orally Once a day 1 tablet 24h Jul, 30 day(s) Active Ipratropium-Albuterol 0.5-2.5 (3) MG/3ML Inhalation every 6 hrs 3 m l 6h 06 Aug, 2018 Active Lancets - test blood sugar 8h Activ e Imitrex 100 mg 1 tablet, may repeat in two hours if needed 5 Not-Taking Baclofen 10 mg Orally bid prn muscle spasm 1 tablet with food or milk 30 Active Metoprolol Tartrate 100 mg Orally Twice a day 1 tablet with food 12h 30 Active BD Insulin Syringe 25G X 5/8 as directed Apr, Active Diclofenac Sodium 1 % apply 4 grams to affected area 12h 12 Active Divalproex Sodium ER 500 mg Orally 2 times a day 1 tablet 12h 30 Active Levemir 100 UNIT/ML Subcutaneous 2 times a day Inject 32 units 12h Active OneTouch Ultra Blue - In Vitro 4 times a day test blood sugar 6h Jan, 28 days Active Furosemide 80 MG Orally Once a day 1 tablet 24h Aug, 5 days Active Oxygen 2 L/NC as directed Aug, A ctive Ventolin HFA 108 (90 Base) MCG/ACT Inhalation every 6 hrs 2 puffs a s needed 6h May, 30 days Active FreeStyle Lidia [place] - EX- E11.65 4 times a day test blood sugar 6h Aug, Active Glimepiride 2 MG Orally Once a day 1 tablet with breakf ast or the first main meal of the day 24h 30 Active Mirapex 1 MG Orally Once a day 1 tablet before bedtime 24h 30 Active EQ Omeprazole 20 mg Orally Once a day 1 tablet 24h 3 0 Active ReliOn Insulin Syringe 31G X 5/16 USE DIRECTED FIVE TIMES BLU LY 20 Active Levothyroxine Sodium 125 mcg Orally Once a day 1 tablet on an empty stomach in the morning 24h 30 Active Zolpidem Tartrate 5 mg Orally Once a day 1 tablet at bedtime 24h 30 Active Atorvastatin Calcium 40 MG Orally Once a day 1 tablet 24h 90 days Active OneTouch Ultra 2 w/Device subcutaneously 4 times a day as directed 6h Jan, 28 days Active Nebulizer Compressor Act lilia Sumatriptan Succinate 11 MG/NOSEPC Nasally Once a day 1 dos e in each nostril as needed one time 24h Jul, 1 day(s) Active Proventil HFA 108 (90 Base) MCG/ACT Inhalation every 6 hrs 2 puffs as needed 6h Active FreeStyle Lidia Sensor System - DX- E11.65 4 times a day test blood sugar 6h Aug, Active Lyrica 200 mg Orally twice a day 1 capsule 12h 30 da ys Active RESULTS Name Result Date Reference Range Xray : Chest 2 View (IN HOUSE) 2018-09-06 PROCEDURES Procedure Date Ordered Result Body Site X-RAY EXAM CHEST 2 VIEWS September 06, 2018 INSTRUCTIONS MEDICATIONS ADMINISTERED No Known Medications MEDICAL [...] left ankle surgery by Dr. Alexis Hassan [facility] 08/16/2017 Hospitalization History surgeries Hospitalization History childbirth Hospitalization History Stroke/seizure 2008 Hospitalization History [facility], lowering oxygen 08/2018
--- OUTSIDE RECORDS SUMMARY | 2019-12-09 00:26 | XMS REPORT ---
Author Author Felipe CHAPPELL Organization [facility] Address [address] [place] [address] Care Team Providers Care Clinical Tech Name Role Phone FRANC CHAPPELL Unavailable PROBLEMS Type Condition ICD9-CM Code [id number] Code Onset Dates Condition S tatus SNOMED Code Problem Type 2 diabetes mellitus wit h hyperglycemia, without long-term current use of insulin E11.65 Active 22700803 Problem Moderately severe depression F32.2 A ctive 655552057 Problem Other chronic pain G89.29 Active 8 5319199 Problem Mild persistent asthma with status asthmaticus J45 .32 Active 928511131 Problem RLS (restless legs syndrome) G25.81 A ctive 04548380 Problem Fibromyalgia M79.7 Active 4782993 05 Problem Seizure disorder G40.909 Active 128 015402 Problem Morbid obesity E66.01 Active 94497 6002 Problem Pain in left ankle and joints of left foot M25.572 Active 202357494 Problem History of PSVT (paroxysmal supraventricular tachycardia) Z86.79 Active 137868809150633 Problem Mild episode of recurrent major depressive disorder F33.0 Active 291053907 Problem COPD mixed type J44.9 Active 1364 5005 Problem Hypertriglyceridemia E78.1 Active 546611655 Problem Chronic systolic congestive heart failure I50.22 Active 204052430 Problem Hypothyroidism (acquired) E03.9 Acti ve 543581619 Problem Scoliosis, unspecified scoliosis type, unspecifi ed spinal region M41.9 Active 915897472 Problem Insomnia, unspecified type G47.00 Act lilia 379349511 Problem Gastroesophageal reflux disease, esophagitis pre sence not specified K21.9 Active 419350551 Problem Primary osteoarthritis of right knee M17.11 Active 216688284172013 Problem Migraine without status migr ainosus, not intractable, unspecified migraine type G43.909 Active 02415155 ALLERGIES No Information ENCOUNTERS Encounter Location Date Diagnosis [facility] [address] [id number] [place] [address] May, [facility] [address] [id number] [place] [address] Dec, [facility] [address] [facility] [id number] [place] [address] Sep, Viral gastroenteritis A08.4 and Morbid obesity E66.01 [facility] [id number] [place] [address] Sep, Chronic systolic congestive heart failur e I50.22 [facility] [place] [address] [id number] [place] [address] Aug, [facility] [address] [facility] [id number] [address] [place] [address] Aug, Edema extremities R60.0 and Morbid obesity E66.01 [place] [id number] [place] [address] Aug, Type 2 diabetes mellitus with hyperglyce licha, without long-term current use of insulin E11.65 [place] [address] [id number] [place] [address] Aug, Type 2 diabetes mellitus with hyperglyce licha, without long-term current use of insulin E11.65 ; Shortness of breath at rest R06.02 and Morbid obesity E66.01 [place] [id number] [place] [address] Aug, Chronic systolic congestive heart failur e I50.22 [place] [id number] [place] [address] Aug, Type 2 diabetes mellitus with hyperglyce licha, without long-term current use of insulin E11.65 [place] [address] [address] Aug, Type 2 diabetes mellitus with hyperglyce licha, without long-term current use of insulin E11.65 [place] [address] [address] Aug, [place] [address] [address] Aug, [facility] [address] [address] Aug, [facility] [place] [address] [address] 07 Aug, 2018 SOB (shortness of breath) on exertion R0 6.02 [place] [address] [address] Aug, [place] [address] [address] Aug, [place] [address] [address] Aug, Chronic systolic congestive heart failur e I50.22 and COPD mixed type J44.9 [place] [address] [address] Aug, [place] [address] [address] Aug, [place] [address] [address] Jul, [place] [address] [address] Jul, Fibromyalgia M79.7 [place] [address] [address] Jul, Hypothyroidism (acquired) E03.9 [place] [address] [address] Jul, Pain of left foot M79.672 [place] [address] [address] Jul, Pain of left foot M79.672 ; Pain in righ t foot M79.671 ; Bruising T14.8XXA ; Acute pain of right shoulder M25.511 ; Encounter for immunization Z23 and BMI 60.0-69.9, adult Z68.44 [facility] [address] [address] Jul, [facility] [address] [address] Jul, [facility] [address] [address] Jul, Type 2 diabetes mellitus with hyperglyce licha, without long-term current use of insulin E11.65 ; Edema, unspecified type R60.9 ; Migraine without status migrainosus, not intractable, unspecified migraine type G43.909 and BMI 60.0- 69.9, adult Z68.44 [facility] [address] [address] Jun, [facility] [address] [address] Jun, [facility] [address] [address] Jun, [facility] [address] [address] May, [facility] [address] [address] May, [facility] [address] [address] Apr, [facility] [address] [address] Apr, Fibromyalgia M79.7 [facility] [address] [address] Apr, [facility] [address] [address] Apr, Type 2 diabetes mellitus with hyperglyce licha, without long-term current use of insulin E11.65 [facility] [address] [address] Apr, [facility] [address] [address] Apr, [place] [address] [address] Mar, Hypothyroidism (acquired) E03.9 [place] [address] [address] Mar, [place] [address] [address] Mar, Type 2 diabetes mellitus with hyperglyce licha, without long-term current use of insulin E11.65 [place] [address] [address] 17 Mar, 2018 Uncontrolled type 2 diabetes mellitus wi th hyperglycemia E11.65 and Type 2 diabetes mellitus with hyperglycemia, without long-term current use of insulin E11.65 [place] [address] [address] 13 Mar, 2018 [place] [address] [address] Mar, Type 2 diabetes mellitus with hyperglyce licha, without long-term current use of insulin E11.65 [place] [address] [address] Mar, Uncontrolled type 2 diabetes mellitus wi th hyperglycemia E11.65 and Type 2 diabetes mellitus with hyperglycemia, without long-term current use of insulin E11.65 [place] [address] [address] Mar, Primary osteoarthritis of right knee M17 .11 [place] [address] [address] Mar, BMI 50.0-59.9, adult Z68.43 ; Uncontroll ed type 2 diabetes mellitus with hyperglycemia E11.65 ; Primary osteoarthritis of right knee M17.11 and Allergic rhinitis, unspecified seasonality, unspecified trigger J30.9 [place] [address] [address] Mar, Type 2 diabetes mellitus with hyperglyce licha, without long-term current use of insulin E11.65 [place] [address] [address] Jan, [place] [address] [address] Jan, [place] [address] [address] Jan, [place] [address] [address] Jan, Type 2 diabetes mellitus with hyperglyce licha, without long-term current use of insulin E11.65 ; Uncontrolled type 2 diabetes mellitus with hyperglycemia E11.65 ; Acute pain of right knee M25.561 and BMI 50.0-59.9, adult Z68.43 [place] [address] [address] Jan, [place] [address] [address] Jan, [place] [address] [address] Jan, Type 2 diabetes mellitus with hyperglyce licha, without long-term current use of insulin E11.65 [place] [address] [address] Jan, BMI 50.0-59.9, adult Z68.43 ; Dorsalgia, unspecified M54.9 ; Other chronic pain G89.29 ; Muscle spasm M62.838 ; Gastroesophageal reflux disease, esophagitis presence not specified K21.9 and Type 2 diabetes mellitus with hyperglycemia, without long-term current use of insulin E11.65 [place] [address] [address] Jan, [place] [address] [address] Jan, [place] [address] [address] Jan, [place] [id number] [place] [address] Jan, [facility] [address] [address] Jan, [facility] [address] [address] Jan, [facility] [address] [address] Jan, [facility] [address] [address] Jan, [facility] [address] [address] Jan, [facility] [place] [address] MCCRACKENVN46402YMarla [place] [address] Jan, Type 2 diabetes mellitus with hyperglycemia, without long-term current use of insulin E11.65 [place] [address] [address] Jan, Hypothyroidism (acquired) E03.9 [place] [address] [address] Dec, Type 2 diabetes mellitus with hyperglyce licha, without long-term current use of insulin E11.65 ; Hypothyroidism (acquired) E03.9 ; Hypertriglyceridemia E78.1 ; Insomnia, unspecified type G47.00 ; Fibromyalgia M79.7 ; Mild episode of recurrent major depressive disorder F33.0 ; BMI 50.0-59.9, adult Z68.43 and Morbid obesity E66.01 [facility] [address] MCCRACKENRC96181TMarla [place] [address] Sep, [facility] [place] [address] MCCRACKENTC91598JYANG LITTLEJOHN [address] Sep, [facility] [address] [place] [address] Sep, [facility] [address] MCCRACKENRB12671WMarla [place] [address] Aug, Gastroenteritis K52.9 and BMI 50.0-59.9, adult Z68.43 [facility] [place] [address] OB67555AMarla [place] [address] Aug, [facility] [place] [address] [id number] [place] [address] Aug, [facility] [place] [address] MCCRACKENYP43787QMarla [place] [address] Aug, [facility] [place] [address] [id number] [place] [address] Aug, Postoperative pain of extremity G89.18 [facility] [place] [address] GALOMH23311PMarla [place] [address] Aug, [facility] [place] [address] IA57264NMarla [place] [address] Aug, [facility] [place] [address] IU28422KMarla [place] [address] Aug, [facility] [place] [address] [id number] [place] [address] Aug, [facility] [place] [address] IU74495OMarla [place] [address] Aug, [facility] [place] [address] [id number] [place] [address] Aug, [facility] [address] [facility] [place] [address] Aug, Abnormal EKG R94.31 [facility] [address] [id number] [place] [id number] Aug, [facility] [place] [address] QC31395DMarla [place] [address] Jul, Pain in left ankle and joints of left foot M25.572 ; Morbid obesity E66.01 and History of PSVT (paroxysmal supraventricular tachycardia) Z86.79 [facility] [place] [address] [place]ALL7Marla [place] [address] Jul, Type 2 diabetes mellitus with hyperglycemia, without long-term current use of insulin E11.65 ; Hypothyroidism (acquired) E03.9 and Pain in left ankle and joints of left foot M25.572 [facility] [address] HL36929KMarla [place] [address] Jun, Nausea and vomiting in adult R11.2 and BMI 50.0-59.9, adult Z68.43 [facility] [address] MCCRACKENZK44528CMarla [place] [address] Jun, [facility] [address] MCCRACKENMT01313JMarla [place] [address] Jun, Pain in left ankle and joints of left foot M25.572 [facility] [address] MCCRACKENFH02055WMarla [place] [address] Jun, [facility] [address] MCCRACKENKM87120H [place] [address] Jun, Type 2 diabetes mellitus with hyperglycemia, without long-term current use of insulin E11.65 ; Other chronic pain G89.29 ; Pain in left ankle and joints of left foot M25.572 and BMI 50.0-59.9, adult Z68.43 [facility] [employer] [id number] [employer] [place] [id number] 15 May, 2017 Hypertriglyceridemia E78.1 and Hypothyro idism (acquired) E03.9 [facility] [address] MCCRACKENIW59381GMarla [place] [address] May, Type 2 diabetes mellitus with hyperglycemia, without [...] foot M25.572 and Other chronic pain G89.29 [facility] [address] MCCRACKENXH38431PMarla [place] [address] May, [facility] [address] MCCRACKENNX55687EMarla [place] [address] May, Left foot pain M79.672 [facility] [place] [address] MCCRACKENAR20072F [place] [address] May, BMI 40.0-44.9, adult Z68.41 and Left foot pain M79.672 IMMUNIZATIONS No Known Immunizations SOCIAL HISTORY Never Assessed REASON FOR VISIT PLAN OF CARE VITAL SIGNS MEDICATIONS Unknown [...] [facility]/2017 Hospitalization History surgeries Hospitalization History childbirth Hospitalization History Stroke/seizure 2008 Hospitalization History [facility] ER, lowering oxygen 08/2018
--- OUTSIDE RECORDS SUMMARY | 2019-12-09 00:27 | XMS REPORT ---
Author Author Felipe CHAPPELL Organization [facility] Address [address] [place] [address] Care Team Providers Care Brand Ambassador Name Role Phone FRANC CHAPPELL Unavailable PROBLEMS Type Condition ICD9-CM Code [id number] Code Onset Dates Condition S tatus SNOMED Code Problem Type 2 diabetes mellitus wit h hyperglycemia, without long-term current use of insulin E11.65 Active 16956735 Problem Moderately severe depression F32.2 A ctive 110071194 Problem Other chronic pain G89.29 Active 8 9212585 Problem Mild persistent asthma with status asthmaticus J45 .32 Active 859695841 Problem RLS (restless legs syndrome) G25.81 A ctive 46408692 Problem Fibromyalgia M79.7 Active 2066763 05 Problem Seizure disorder G40.909 Active 128 900149 Problem Morbid obesity E66.01 Active 91981 6002 Problem Pain in left ankle and joints of left foot M25.572 Active 605782335 Problem History of PSVT (paroxysmal supraventricular tachycardia) Z86.79 Active 482399767368138 Problem Mild episode of recurrent major depressive disorder F33.0 Active 651531545 Problem COPD mixed type J44.9 Active 1364 5005 Problem Hypertriglyceridemia E78.1 Active 592878514 Problem Chronic systolic congestive heart failure I50.22 Active 080576054 Problem Hypothyroidism (acquired) E03.9 Acti ve 571308932 Problem Scoliosis, unspecified scoliosis type, unspecifi ed spinal region M41.9 Active 310922377 Problem Insomnia, unspecified type G47.00 Act lilia 328658084 Problem Gastroesophageal reflux disease, esophagitis pre sence not specified K21.9 Active 741514177 Problem Primary osteoarthritis of right knee M17.11 Active 747885481772909 Problem Migraine without status migr ainosus, not intractable, unspecified migraine type G43.909 Active 29455617 ALLERGIES No Information ENCOUNTERS Encounter Location Date Diagnosis [facility] [address] [place] [phone] Sep, [facility] [address] [place] [address] Sep, Viral gastroenteritis A08.4 and Morbid obesity E66.01 [facility] [address] [place] [id number] [place] [address] Sep, Chronic systolic congestive heart failure I50.22 [facility] [address] [id number] [place] [address] Aug, [facility] [address] [address] Aug, Edema extremities R60.0 and Morbid obesity E66.01 [place] [address] [place] [id number] [place] [address] Aug, Type 2 diabetes mellitus wit h hyperglycemia, without long-term current use of insulin E11.65 [place] [address] [address] Aug, Type 2 diabetes mellitus wit h hyperglycemia, without long-term current use of insulin E11.65 ; Shortness of breath at rest R06.02 and Morbid obesity E66.01 [place] [address] [place] [address] Aug, Chronic systolic congestive heart failure I50.22 [place] [address] [place] [address] Aug, Type 2 diabetes mellitus wit h hyperglycemia, without long-term current use of insulin E11.65 [place] [address] [place] [id number] [place] [address] Aug, Type 2 diabetes mellitus wit h hyperglycemia, without long-term current use of insulin E11.65 [place] [address] [place] [id number] [place] [address] Aug, [place] [address] [place] [id number] [place] [address] Aug, [facility] [address] [facility] [id number] [address] [place] [address] Aug, [facility] [address] [facility] [id number] [address] [place] [address] Aug, SOB (shortness of breath) on exertion R06.02 [facility] [address] [place] [id number] [place] [address] Aug, [facility] [address] [address] [id number] [place] [phone] Aug, [facility] [address] [place] [id number] [place] [address] Aug, Chronic systolic congestive heart failure I50.22 and COPD mixed type J44.9 [facility] [address] [place] [id number] [place] [address] Aug, [facility] [address] [id number] [place] [address] Aug, [facility] [address] [place] [id number] [place] [address] Jul, [facility] [address] [place] [id number] [place] [address] Jul, Fibromyalgia M79.7 [facility] [address] [address] Jul, Hypothyroidism (acquired) E0 3.9 [facility] [address] [facility] [id number] [address] [place] [address] Jul, Pain of left foot M79.672 [facility] [address] [place] [address] [id number] [place] [address] Jul, Pain of left foot M79.672 ; Pain in right foot M79.671 ; Bruising T14.8XXA ; Acute pain of right shoulder M25.511 ; Encounter for immunization Z23 and BMI 60.0-69.9, adult Z68.44 [facility] [address] [facility] [id number] [address] [place] [address] Jul, [facility] [address] [facility] [id number] [address] [place] [phone] Jul, [facility] [address] [facility] [id number] [address] [place] [address] Jul, Type 2 diabetes mellitus wit h hyperglycemia, without long-term current use of insulin E11.65 ; Edema, unspecified type R60.9 ; Migraine without status migrainosus, not intractable, unspecified migraine type G43.909 and BMI 60.0-69.9, adult Z68.44 [facility] [address] [facility] [id number] [address] [place] [phone] Jun, [facility] [address] [place] [id number] [place] [address] Jun, [facility] [address] [facility] [id number] [address] [place] [phone] Jun, [facility] [address] [facility] [id number] [address] [place] [address] May, [facility] [address] [place] [id number] [place] [address] May, [facility] [address] [facility] [id number] [address] [place] [phone] Apr, [facility] [address] [facility] [id number] [address] [place] [address] Apr, Fibromyalgia M79.7 [facility] [address] [facility] [id number] [address] [place] [phone] Apr, [facility] [address] [facility] [id number] [address] [place] [address] Apr, Type 2 diabetes mellitus wit h hyperglycemia, without long-term current use of insulin E11.65 [facility] [address] [facility] [id number] [address] [place] [phone] Apr, [place] [address] [facility] [id number] [address] [place] [address] Apr, [place] [address] [facility] [id number] [address] [place] [address] Mar, Hypothyroidism (acquired) E0 3.9 [place] [address] [place] [id number] [place] [address] Mar, [place] [address] [facility] [id number] [place] [address] 24 Mar, 2018 Type 2 diabetes mellitus wit h hyperglycemia, without long-term current use of insulin E11.65 [place] [address] [place] [id number] [address] [place] [phone] 17 Mar, 2018 Uncontrolled type 2 diabetes mellitus with hyperglycemia E11.65 and Type 2 diabetes mellitus with hyperglycemia, without long-term current use of insulin E11.65 [place] [address] [place] [address] 13 Mar, 2018 [place] [address] [facility] [id number] [address] [place] [address] Mar, Type 2 diabetes mellitus wit h hyperglycemia, without long-term current use of insulin E11.65 [place] [address] [place] [id number] [address] [place] [phone] 10 Mar, 2018 Uncontrolled type 2 diabetes mellitus with hyperglycemia E11.65 and Type 2 diabetes mellitus with hyperglycemia, without long-term current use of insulin E11.65 [place] [address] [facility] [id number] [address] [place] [address] 06 Mar, 2018 Primary osteoarthritis of ri ght knee M17.11 [place] [address] [facility] [id number] [address] [place] [address] 06 Mar, 2018 BMI 50.0-59.9, adult Z68.43 ; Uncontrolled type 2 diabetes mellitus with hyperglycemia E11.65 ; Primary osteoarthritis of right knee M17.11 and Allergic rhinitis, unspecified seasonality, unspecified trigger J30.9 [facility] [address] [id number] [address] [place] [address] Mar, Type 2 diabetes mellitus wit h hyperglycemia, without long-term current use of insulin E11.65 [place] [address] [facility] [id number] [address] [place] [phone] Jan, [facility] [address] [facility] [id number] [address] [place] [phone] Jan, [place] [address] [facility] [id number] [address] [place] [phone] Jan, [place] [address] [id number] [address] [place] [phone] Jan, Type 2 diabetes mellitus wit h hyperglycemia, without long-term current use of insulin E11.65 ; Uncontrolled type 2 diabetes mellitus with hyperglycemia E11.65 ; Acute pain of right knee M25.561 and BMI 50.0-59.9, adult Z68.43 [place] [address] [facility] [id number] [address] [place] [phone] Jan, [place] [address] [facility] [id number] [address] [place] [phone] Jan, [place] [address] [facility] [id number] [address] [place] [phone] Jan, Type 2 diabetes mellitus wit h hyperglycemia, without long-term current use of insulin E11.65 [place] [address] [facility] [id number] [address] [place] [address] Jan, BMI 50.0-59.9, adult Z68.43 ; Dorsalgia, unspecified M54.9 ; Other chronic pain G89.29 ; Muscle spasm M62.838 ; Gastroesophageal reflux disease, esophagitis presence not specified K21.9 and Type 2 diabetes mellitus with hyperglycemia, without long-term current use of insulin E11.65 [place] [address] [facility] [id number] [address] [place] [phone] Jan, [place] [address] [facility] [id number] [address] [place] [phone] Jan, [facility] [address] [id number] [address] [place] [phone] Jan, [facility] [address] [facility] [id number] [address] [place] [phone] Jan, [facility] [address] [facility] [id number] [address] [place] [phone] Jan, [facility] [address] [facility] [id number] [address] [place] [phone] Jan, [facility] [address] [id number] [address] [place] [phone] Jan, [facility] [address] [facility] [id number] [address] [place] [phone] Jan, [facility] [address] [facility] [id number] [address] [place] [phone] Jan, [facility] [address] [id number] [place] [address] Jan, Type 2 diabetes mellitus with hyperglyce licha, without long-term current use of insulin E11.65 [facility] [address] [facility] [id number] [address] [place] [address] Jan, Hypothyroidism (acquired) E0 3.9 [facility] [address] [facility] [id number] [address] [place] [address] Dec, Type 2 diabetes mellitus wit h hyperglycemia, without long-term current use of insulin E11.65 ; Hypothyroidism (acquired) E03.9 ; Hypertriglyceridemia E78.1 ; Insomnia, unspecified type G47.00 ; Fibromyalgia M79.7 ; Mild episode of recurrent major depressive disorder F33.0 and BMI 50.0- 59.9, adult Z68.43 [facility] [address] [id number] [place] [address] Sep, [facility] [address] [id number] [place] [address] Sep, [facility] [place] [address] [id number] [place] [address] Sep, [facility] [place] [address] [id number] [place] [address] Aug, Gastroenteritis K52.9 and BMI 50.0-59.9, adult Z68.43 [facility] [place] [address] [id number] [place] [address] Aug, [facility] [place] [address] [id number] [place] [address] Aug, [facility] [place] [address] [id number] [place] [address] Aug, [facility] [place] [address] [id number] [place] [address] Aug, Postoperative pain of extremity G89.18 [facility] [place] [address] [id number] [place] [address] Aug, [facility] [place] [address] [id number] [place] [address] Aug, [facility] [place] [address] [id number] [place] [address] Aug, [facility] [place] [address] [id number] [place] [address] Aug, [facility] [place] [address] [id number] [place] [address] Aug, [facility] [place] [address] [id number] [place] [address] Aug, [facility] [address] [facility] [id number] 100[address] [place] [address] Aug, Abnormal EKG R94.[address] [facility] [address] [id number] [place] [id number] Aug, [facility] [place] [address] [id number] [place] [address] Jul, Pain in left ankle and joints of left fo ot M25.572 ; Morbid obesity E66.01 and History of PSVT (paroxysmal supraventricular tachycardia) Z86.79 [facility] [address] [id number] [place] [address] Jul, Type 2 diabetes mellitus with hyperglyce licha, without long-term current use of insulin E11.65 ; Hypothyroidism (acquired) E03.9 and Pain in left ankle and joints of left foot M25.572 [facility] [address] [id number] [place] [address] Jun, Nausea and vomiting in adult R11.2 and B WI 50.0-59.9, adult Z68.43 [facility] [address] [id number] [place] [address] Jun, [facility] [address] [id number] [place] [address] Jun, Pain in left ankle and joints of left fo ot M25.572 [facility] [address] [id number] [place] [address] Jun, [facility] [id number] [place] [address] Jun, Type 2 diabetes mellitus with hyperglyce licha, without long-term current use of insulin E11.65 ; Other chronic pain G89.29 ; Pain in left ankle and joints of left foot M25.572 and BMI 50.0-59.9, adult Z68.43 [facility] [address] [id number] [place] [id number] 15 May, 2017 Hypertriglyceridemia E78.1 and Hypothyro idism (acquired) E03.9 [facility] [address] [id number] [place] [address] 14 May, 2017 Type 2 diabetes mellitus [...] foot M25.572 and Other chronic pain G89.29 [facility] [address] [id number] [place] [address] May, [facility] [address] [id number] [place] [address] May, Left foot pain M79.672 [facility] [address] [id number] [place] [address] May, BMI 40.0-44.9, adult Z68.41 and Left stacia t pain M79.672 IMMUNIZATIONS No Known Immunizations SOCIAL HISTORY Never Assessed REASON FOR VISIT high BS PLAN OF CARE VITAL SIGNS MEDICATIONS Medication Instructions Dosage Frequency Start Date End Date Duration S tatus Levemir 100 UNIT/ML Subcutaneous 2 times a day Inject 32 units 12h Active RESULTS No Results PROCEDURES No Known [...] left ankle surgery by Dr. Alexis Hassan [facility] 08/16/2017 Hospitalization History surgeries Hospitalization History childbirth Hospitalization History Stroke/seizure 2008 Hospitalization History [facility], lowering oxygen 08/2018
--- OUTSIDE RECORDS SUMMARY | 2019-12-09 00:27 | XMS REPORT ---
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 Name Role Phone FRANC CHAPPELL Unavailable PROBLEMS Type Condition ICD9-CM Code KNI62-LA Code Onset Dates Condition S tatus SNOMED Code Problem Type 2 diabetes mellitus wit h hyperglycemia, without long-term current use of insulin E11.65 Active 54845547 Problem Moderately severe depression F32.2 A ctive 405266608 Problem Other chronic pain G89.29 Active 8 3367941 Problem Mild persistent asthma with status asthmaticus J45 .32 Active 267291193 Problem RLS (restless legs syndrome) G25.81 A ctive 83375695 Problem Fibromyalgia M79.7 Active 1632887 05 Problem Seizure disorder G40.909 Active 128 117854 Problem Morbid obesity E66.01 Active 66026 6002 Problem Pain in left ankle and joints of left foot M25.572 Active 500793597 Problem History of PSVT (paroxysmal supraventricular tachycardia) Z86.79 Active 964599952025219 Problem Mild episode of recurrent major depressive disorder F33.0 Active 419117597 Problem COPD mixed type J44.9 Active 1364 5005 Problem Hypertriglyceridemia E78.1 Active 809930976 Problem Chronic systolic congestive heart failure I50.22 Active 287569495 Problem Hypothyroidism (acquired) E03.9 Acti ve 221247348 Problem Scoliosis, unspecified scoliosis type, unspecifi ed spinal region M41.9 Active 597456903 Problem Insomnia, unspecified type G47.00 Act lilia 972725630 Problem Gastroesophageal reflux disease, esophagitis pre sence not specified K21.9 Active 050437289 Problem Primary osteoarthritis of right knee M17.11 Active 930769044403940 Problem Migraine without status migr ainosus, not intractable, unspecified migraine type G43.909 Active 20618691 ALLERGIES No Information ENCOUNTERS Encounter Location Date Diagnosis [facility] [id number] [place] [address] Sep, [facility] [address] [place] [address] Sep, Viral gastroenteritis A08.4 and Morbid obesity E66.01 [facility] [address] [place] [id number] [place] [address] Sep, Chronic systolic congestive heart failure I50.22 [facility] [address] [id number] [place] [address] Aug, [facility] [address] [address] Aug, Edema extremities R60.0 and Morbid obesity E66.01 [place] [address] [place] [id number] [place] [address] Aug, Type 2 diabetes mellitus wit h hyperglycemia, without long-term current use of insulin E11.65 [place] [address] [address] Aug, Type 2 diabetes mellitus wit h hyperglycemia, without long-term current use of insulin E11.65 ; Shortness of breath at rest R06.02 and Morbid obesity E66.01 [place] [address] [place] [address] Aug, Chronic systolic congestive heart failure I50.22 [place] [address] [place] [address] Aug, Type 2 diabetes mellitus wit h hyperglycemia, without long-term current use of insulin E11.65 [place] [address] [place] [id number] [place] [address] Aug, Type 2 diabetes mellitus wit h hyperglycemia, without long-term current use of insulin E11.65 [place] [address] [place] [id number] [place] [address] Aug, [place] [address] [place] [id number] [place] [address] Aug, [facility] [address] [facility] [id number] [address] [place] [address] Aug, [facility] [address] [facility] [id number] [address] [place] [address] Aug, SOB (shortness of breath) on exertion R06.02 [facility] [address] [place] [id number] [place] [address] Aug, [facility] [address] [address] [id number] [place] [address] Aug, [facility] [address] [place] [id number] [place] [address] Aug, Chronic systolic congestive heart failure I50.22 and COPD mixed type J44.9 [facility] [address] [place] [id number] [address] [place] [address] Aug, [facility] [address] [id number] [address] [place] [address] Aug, [facility] [address] [place] [id number] [address] [place] [address] Jul, [facility] [address] [place] [id number] [address] [place] [address] Jul, Fibromyalgia M79.7 [facility] [address] [address] Jul, Hypothyroidism (acquired) E0 3.9 [facility] [address] [facility] [id number] [address] [place] [address] Jul, Pain of left foot M79.672 [facility] [address] [place] [id number] [place] [address] Jul, Pain of left foot M79.672 ; Pain in right foot M79.671 ; Bruising T14.8XXA ; Acute pain of right shoulder M25.511 ; Encounter for immunization Z23 and BMI 60.0-69.9, adult Z68.44 [facility] [address] [facility] [id number] [address] [place] [address] Jul, [facility] [address] [facility] [id number] [address] [place] [address] Jul, [facility] [address] [facility] [id number] [address] [place] [address] Jul, Type 2 diabetes mellitus wit h hyperglycemia, without long-term current use of insulin E11.65 ; Edema, unspecified type R60.9 ; Migraine without status migrainosus, not intractable, unspecified migraine type G43.909 and BMI 60.0-69.9, adult Z68.44 [facility] [address] [facility] [id number] [address] [place] [address] Jun, [facility] [address] [place] [id number] [address] [place] [address] Jun, [facility] [address] [facility] [id number] [address] [place] [address] Jun, [facility] [address] [facility] [id number] [address] [place] [address] May, [facility] [address] [place] [id number] [address] [place] [address] May, [facility] [address] [facility] [id number] [address] [place] [address] Apr, [facility] [address] [facility] [id number] [address] [place] [address] Apr, Fibromyalgia M79.7 [facility] [address] [facility] [id number] [address] [place] [address] Apr, [facility] [address] [facility] [id number] [address] [place] [address] Apr, Type 2 diabetes mellitus wit h hyperglycemia, without long-term current use of insulin E11.65 [facility] [address] [facility] [id number] [address] [place] [address] Apr, [place] [address] [facility] [id number] [address] [place] [address] Apr, [place] [address] [facility] [id number] [address] [place] [address] Mar, Hypothyroidism (acquired) E0 3.9 [place] [address] [place] [id number] [place] [address] Mar, [place] [address] [facility] [id number] [place] [address] 24 Mar, 2018 Type 2 diabetes mellitus wit h hyperglycemia, without long-term current use of insulin E11.65 [place] [address] [place] [id number] [address] [place] [address] 17 Mar, 2018 Uncontrolled type 2 diabetes mellitus with hyperglycemia E11.65 and Type 2 diabetes mellitus with hyperglycemia, without long-term current use of insulin E11.65 [place] [address] [place] [address] 13 Mar, 2018 [place] [address] [facility] [id number] [address] [place] [address] Mar, Type 2 diabetes mellitus wit h hyperglycemia, without long-term current use of insulin E11.65 [place] [address] [place] [id number] [address] [place] [address] 10 Mar, 2018 Uncontrolled type 2 diabetes mellitus with hyperglycemia E11.65 and Type 2 diabetes mellitus with hyperglycemia, without long-term current use of insulin E11.65 [place] [address] [facility] [id number] [address] [place] [address] 06 Mar, 2018 Primary osteoarthritis of ri ght knee M17.11 [place] [address] [facility] [id number] [address] [place] [address] 06 Mar, 2018 BMI 50.0-59.9, adult Z68.43 ; Uncontrolled type 2 diabetes mellitus with hyperglycemia E11.65 ; Primary osteoarthritis of right knee M17.11 and Allergic rhinitis, unspecified seasonality, unspecified trigger J30.9 [facility] [address] [id number] [address] [place] [address] Mar, Type 2 diabetes mellitus wit h hyperglycemia, without long-term current use of insulin E11.65 [place] [address] [facility] [id number] [address] [place] [address] Jan, [facility] [address] [facility] [id number] [address] [place] [address] Jan, [place] [address] [facility] [id number] [address] [place] [address] Jan, [place] [address] [id number] [address] [place] [address] Jan, Type 2 diabetes mellitus wit h hyperglycemia, without long-term current use of insulin E11.65 ; Uncontrolled type 2 diabetes mellitus with hyperglycemia E11.65 ; Acute pain of right knee M25.561 and BMI 50.0-59.9, adult Z68.43 [place] [address] [facility] [id number] [address] [place] [address] Jan, [place] [address] [facility] [id number] [address] [place] [address] Jan, [place] [address] [facility] [id number] [address] [place] [address] Jan, Type 2 diabetes mellitus wit h hyperglycemia, without long-term current use of insulin E11.65 [place] [address] [facility] [id number] [address] [place] [address] Jan, BMI 50.0-59.9, adult Z68.43 ; Dorsalgia, unspecified M54.9 ; Other chronic pain G89.29 ; Muscle spasm M62.838 ; Gastroesophageal reflux disease, esophagitis presence not specified K21.9 and Type 2 diabetes mellitus with hyperglycemia, without long-term current use of insulin E11.65 [place] [address] [facility] [id number] [address] [place] [address] Jan, [place] [address] [facility] [id number] [address] [place] [address] Jan, [facility] [address] [id number] [address] [place] [address] Jan, [facility] [address] [facility] [id number] [address] [place] [address] Jan, [facility] [address] [facility] [id number] [address] [place] [address] Jan, [facility] [address] [facility] [id number] [address] [place] [address] Jan, [facility] [address] [id number] [address] [place] [address] Jan, [facility] [address] [facility] [id number] [address] [place] [address] Jan, [facility] [address] [facility] [id number] [address] [place] [address] Jan, [facility] [address] [id number] [place] [address] Jan, Type 2 diabetes mellitus with hyperglyce licha, without long-term current use of insulin E11.65 [facility] [address] [facility] [id number] [address] [place] [address] Jan, Hypothyroidism (acquired) E0 3.9 [facility] [address] [facility] [id number] [address] [place] [address] Dec, Type 2 diabetes mellitus wit h hyperglycemia, without long-term current use of insulin E11.65 ; Hypothyroidism (acquired) E03.9 ; Hypertriglyceridemia E78.1 ; Insomnia, unspecified type G47.00 ; Fibromyalgia M79.7 ; Mild episode of recurrent major depressive disorder F33.0 and BMI 50.0- 59.9, adult Z68.43 [facility] [address] [id number] [place] [address] Sep, [facility] [address] [id number] [place] [address] Sep, [facility] [place] [address] [id number] [place] [address] Sep, [facility] [place] [address] [id number] [place] [address] Aug, Gastroenteritis K52.9 and BMI 50.0-59.9, adult Z68.43 [facility] [place] [address] [id number] [place] [address] Aug, [facility] [place] [address] [id number] [place] [address] Aug, [facility] [place] [address] [id number] [place] [address] Aug, [facility] [place] [address] [id number] [place] [address] Aug, Postoperative pain of extremity G89.18 [facility] [place] [address] [id number] [place] [address] Aug, [facility] [place] [address] [id number] [place] [address] Aug, [facility] [place] [address] [id number] [place] [address] Aug, [facility] [place] [address] [id number] [place] [address] Aug, [facility] [place] [address] [id number] [place] [address] Aug, [facility] [place] [address] [id number] [place] [address] Aug, [facility] [address] [facility] [id number] [address] [place] [address] Aug, Abnormal EKG R94.[address] [facility] [address] [id number] [place] [id number] Aug, [facility] [place] [address] [id number] [place] [address] Jul, Pain in left ankle and joints of left fo ot M25.572 ; Morbid obesity E66.01 and History of PSVT (paroxysmal supraventricular tachycardia) Z86.79 [facility] [address] [id number] [place] [address] Jul, Type 2 diabetes mellitus with hyperglyce licha, without long-term current use of insulin E11.65 ; Hypothyroidism (acquired) E03.9 and Pain in left ankle and joints of left foot M25.572 [facility] [address] [id number] [place] [address] Jun, Nausea and vomiting in adult R11.2 and B DE 50.0-59.9, adult Z68.43 [facility] [address] [id number] [place] [address] Jun, [facility] [address] [id number] [place] [address] Jun, Pain in left ankle and joints of left fo ot M25.572 [facility] [address] [id number] [place] [address] Jun, [facility] [id number] [place] [address] Jun, Type 2 diabetes mellitus with hyperglyce licha, without long-term current use of insulin E11.65 ; Other chronic pain G89.29 ; Pain in left ankle and joints of left foot M25.572 and BMI 50.0-59.9, adult Z68.43 [facility] [id number] [place] [id number] 15 May, 2017 Hypertriglyceridemia E78.1 and Hypothyro idism (acquired) E03.9 [facility] [address] [id number] [place] [address] 14 May, 2017 Type 2 diabetes mellitus [...] foot M25.572 and Other chronic pain G89.29 [facility] [place] [address] [id number] [place] [address] May, [facility] [address] [id number] [place] [address] May, Left foot pain M79.672 [facility] [place] [address] [id number] [place] [address] May, BMI 40.0-44.9, adult Z68.41 and Left stacia t pain M79.672 IMMUNIZATIONS No Known Immunizations SOCIAL HISTORY Never Assessed REASON FOR VISIT Free Style monitor to [facility] PLAN OF CARE VITAL SIGNS MEDICATIONS Medication Instructions Dosage Frequency Start Date End Date Duration S tatus thePlatformStyle Lidia Cebolla - EX- E11.65 4 times a day test blood sugar 6h Aug, Active FreeStyle Lidia Sensor System - DX- E11.65 4 times a day test blood sugar 6h Aug, Active RESULTS No Results PROCEDURES No Known [...] left ankle surgery by Dr. Alexis Hassan [place] [facility] 08/16/2017 Hospitalization History surgeries Hospitalization History childbirth Hospitalization History Stroke/seizure 2008 Hospitalization History [facility] ER, lowering oxygen 08/2018
--- OUTSIDE RECORDS SUMMARY | 2019-12-09 00:31 | XMS REPORT | Continuity of Care Document ---
Demographics Preferred Language Unknown Marital Status Unknown Rastafarian Affiliation Unknown Race Unknown Ethnic Group Unknown Author Organization Unknown Address Unknown Phone Unavailable Allergies Active Description Code Type Severity Reaction Onset Reported/Identified Relationship to Patient Clinical Status Yes BUTORPHANOL TARTRATE UNKNOWN UNKNOWN Yes PENICILLINS UNKNOWN UNKNOWN Yes PSYCH MEDS UNKNOWN UNKNOWN Yes BUTORPHANOL TARTRATE 78953 D RUG INGREDI N/A N/A 01/29/2011 Yes PENICILLINS 26 Drug Class N/A N/A 01/29/2011 Yes DULOXETINE HCL 12166 DRUG N/A N/A 11/01/2011 Yes DULOXETINE HCL 81956 DRUG N/A Other 11/01/2011 11/01/2011 Yes GABAPENTIN 90409 DRUG INGREDI N/A N/A 11/01/2011 Yes GABAPENTIN 18907 DRUG INGREDI N/A Other 11/01/2011 11/01/2011 Yes OXCARBAZEPINE 41848 DRUG INGREDI Med Hives 11/01/2011 Yes ZIPRASIDONE 92597 DRUG INGREDI N/A N/A 11/01/2011 Yes BUTORPHANOL TARTRATE 1580 D rug Allergy N/A Unknown 07/12/2012 Yes DULOXETINE 8705 Drug Allergy N/A Unknown 07/12/2012 Yes PENICILLINS 476 Drug Allergy N/A Unknown 07/12/2012 Yes GABAPENTIN 4415 Drug Allergy N/A Other 08/28/2016 Yes OXCARBAZEPINE 6035 Drug Allergy N/A Other 08/28/2016 Yes ZIPRASIDONE HCL 9105 Drug Allergy N/A Unknown 08/28/2016 Yes TRAMADOL 19453 DRUG INGREDI N/A ItchingRNausea 03/07/2017 Yes TRAMADOL 56214 DRUG INGREDI N/A Itching~Nausea 03/07/2017 03/07/2017 Yes penicillin NKMA N/A UNKNOWN AT THIS TIME 08/15/2017 Yes Stadol NKMA N/A UKNOWN AT THIS TIME 08/15/2017 Yes penicillin NKMA N/A N/V, FEVER 08/16/2017 Yes SYMBALTA SYMBALTA Un known NAUSEA 05/27/2018 Yes butorphanol [id number] Drug Aller gy Severe N/A 08/04/2018 Yes Penicillins [id number] Drug Aller gy Unknown NAUSEA 08/04/2018 Yes SERTRALINE 19368 DRUG INGREDI Low N&V 04/02/2019 04/02/2019 Yes butorphanol butorphanol Allergy N/A Hallucinating 09/12/2019 Yes Penicillins Penicillins Allergy N/A unknown 09/12/2019 Yes tramadol tramadol Allergy N/A Vomiting 09/12/2019 Medications Medication Packaging Start Date St op Date Route Dosage Sig pramipexole (MIRAPEX) 0.25 m g tablet -- TAKE TWO TABLETS BY MOUTH ONCE DAILY. tablet 11/15/2016 NITROGLYCERIN 0.4 MG SL SUBL 12/12/2016 Sublingual 0.4 EVERY 5 MIN PRN ASPIRIN 81 MG PO CHEW 12/12/2016 Oral 324 ONCE HYDROXYZINE HCL 25 MG PO TABS 01/12/2017 Oral 25 ONCE SUMAtriptan-naproxen (TREXIM ET) 85-500 mg tablet -- Take 1 tablet by mouth two times a day after meals, as needed for Other (Migraines) tablet 02/13/2017 Oral 2 TIMES A DAY AFTER MEALS NEEDED 2 TIMES A DAY AFTER MEALS NEEDED pregabalin(Lyrica) 08/15/2017 Oral 150 mg 150 mg, Oral, BID, 0 Refill(s) diclofenac(diclofenac) 08/15/2017 Oral 75 mg 75 m g, Oral, BID, 0 Refill(s) divalproex sodium(divalproex sodium 500 mg oral tablet, extended release) 1 tabs 08/15/2017 Oral 500 mg 500 mg = 1 tabs, Oral, BID, 0 Refill(s) metoprolol(metoprolol succin ate 100 mg oral tablet, extended release) 1 tabs 08/15/2017 Oral 100 mg 100 mg = 1 tabs, Oral, BID, 0 Refill(s) SUMAtriptan-naproxen(Trexime t 85 mg-500 mg oral tablet) 1 tabs 08/15/2017 Oral 1 tabs, Oral, Once, may repe at dose once in 2 hours, PRN: as needed for migraine headache, 0 Refill(s) glyBURIDE(glyBURIDE 2.5 mg oral tablet) 1 tabs 08/15/2017 Oral 2.5 mg 2.5 mg = 1 tabs, Oral, BID, 0 Refill(s) atorvastatin(atorvastatin 20 mg oral table t) 1 tabs 08/15/2017 Oral 20 mg 20 mg = 1 tabs, Oral, Daily, 0 Refill(s) hydrochlorothiazide(hydroCHL OROthiazide 25 mg oral tablet) 1 tabs 08/15/2017 Oral 2 5 mg 25 mg = 1 tabs, Oral, Daily, 0 Refill(s) levothyroxine(levothyroxine) 08/15/2017 Oral 112 mcg 112 mcg, Oral, Daily, 0 Refill(s) Lactated Ringers Injection(L actated Ringers Injection 1,000 mL) 1,000 mL 08/16/2017 08/16/2017 IV 10 mL/hr, IV midazolam(Versed) 2 mL 08/16/2017 08/16/2017 IV Push 2 mg 2 mg = 2 mL, IV Push, Once fentaNYL(Sublimaze) 1 mL 08/16/2017 08/16/2017 IV Push 50 mcg 50 mcg = 1 mL, IV Push, Once famotidine(Pepcid) 2 mL 08/16/2017 08/16/2017 IV Push 20 mg 20 mg = 2 mL, IV Push, Once HYDROmorphone(Dilaudid) 2 mL 08/16/2017 08/16/2017 IV Push 2 mg 2 mg = 2 mL, IV Push, q4hr, PRN: Pain - Breakthrough oxycodone-acetaminophen(Perc ocet 5/325 oral tablet) 2 tabs 08/16/2017 08/16/2017 Oral 2 tabs, Oral, q4hr, PRN: Miguel n Moderate (4-6) oxycodone-acetaminophen(Perc ocet 5/325 oral tablet) 1 tabs 08/16/2017 Oral 1 tabs, Oral, q4hr, PRN: Pain Moderate (4-6), 0 Refill(s) HYDROmorphone(Dilaudid) 0.5 mL 08/16/2017 08/16/2017 IV Push 0.5 mg 0.5 mg = 0.5 mL, IV Push, q5min, PRN: Pain HYDROmorphone(Dilaudid) 0.5 mL 08/16/2017 08/16/2017 IV Push 0.5 mg 0.5 mg = 0.5 mL, IV Push, q10min, PRN: Pain ORPHENADRINE INJ 60 MG/2CC (NORFLEX) MG 02/11/2018 02/11/2018 ONCE&0201 HYDROCODONE/APAP 5MG/325MG T AB 5 MG/325MG (MIKE-TAB 5/325) TAB 02/11/2018 02/11/2018 ONCE&0229 KETOROLAC VIAL INJ 60 MG/2CC (TORADOL VIAL ) MG 02/11/2018 02/15/2018 Q6H&0600,1200,1800,2359 SUMATRIPTAN TAB 50 MG (IMITREX) MG 02/11/2018 02/18/2018 PRN Q6H NORMAL SALINE 1000CC IV BAG INJ 0.9 % (NS 1000CC IV BAG) ml 02/19/2018 02/20/2018 CONTINUOUSEVERY 0 Hour INSULIN REGULAR HUMAN INJ 10 0 UNITS/CC (HUMULIN R / NOVOLIN R INSULIN) UNITS 02/19/2018 02/19/2018 ONCE&175 0 NORMAL SALINE 1000CC IV BAG INJ 0.9 % (NS 1000CC IV BAG) ml 02/19/2018 03/06/2018 CONTINUOUSEVERY 0 Hour Potassium Chloride Powder fo r Oral Soln 20mEQ packet MEQ 02/19/2018 02/19/2018 ONCE&1930 INSULIN ASPART PEN INJ 100 U NITS/CC (NOVOLOG FLEXPEN) UNITS 02/27/2018 02/27/2018 ONCE&1701 POTASSIUM CHLORIDE TAB 20 MEQ (K-DUR) MEQ 02/27/2018 02/27/2018 ONCE&1731 MECLIZINE TAB 25 MG (ANTIVERT) MG 02/27/2018 02/27/2018 PRN ONCE KETOROLAC VIAL INJ 60 MG/2CC (TORADOL VIAL ) MG 03/21/2018 03/21/2018 ONCE&1549 INSULIN U-100 REGULAR HUMAN 100 UNIT/ML INJECTION SOLUTION 12/19/2018 12/19/2018 intrav enous 5 Units X1 SODIUM CHLORIDE 0.9 % IV BOLUS 12/29/2018 Intravenous 1000 BOLUS PROCHLORPERAZINE EDISYLATE 1 0 MG/2 ML (5 MG/ML) INJECTION SOLUTION 01/07/2019 01/07/2019 intravenous 3 mg X1 ALUMINUM-MAG HYDROXIDE-SIMET HICONE 400 MG-400 MG-40 MG/5 ML ORAL SUSP 01/07/2019 01/07/2019 oral 1 mL X1 DIPHENHYDRAMINE 12.5 MG/5 ML ORAL ELIXIR 01/07/2019 01/07/2019 oral 3 mg X1 LIDOCAINE 2 % VISCOUS MUCOSAL SOLUTION 01/07/2019 01/07/2019 Mouth/Throat 1 mL X1 KETOROLAC 30 MG/ML (1 ML) INJECTION SOLUTI ON 05/05/2019 05/05/2019 intramuscular mg mg X1 LORAZEPAM 2 MG/ML INJECTION SOLUTION 05/05/2019 05/05/2019 intramuscular mg mg X1 sodium chloride bolus 0.9 % infusion 1,000 mL 06/05/2019 Intravenous 1000 BOLUS insulin regular human (NOVOLIN R) inj 10 U nits 06/05/2019 Subcutaneous 10 ONCE albuterol (PROVENTIL) nebulizer solution 1 0 mg 06/17/2019 Nebulization 10 ONCE ipratropium (ATROVENT) 0.02 % nebulizer solution 0.5 mg 06/17/2019 Nebulization 0.5 ONCE acetaminophen (TYLENOL) tablet 650 mg 06/17/2019 Oral 650 ONCE dexamethasone (DECADRON) injection 10 mg 06/17/2019 Oral 10 ONCE albuterol (PROVENTIL) nebulizer solution 2 .5 mg 06/17/2019 Inhalation 2.5 ONCE sodium chloride 0.9% flush bag 06/17/2019 Intravenous 25 PRN FLUSH sodium chloride bolus 0.9 % infusion 500 m L 06/17/2019 Intravenous 500 BOLUS albuterol-ipratropium (DUONE B) nebulizer solution 3 mL 06/17/2019 Nebulization 3 EVERY 4 HOURS PRN albuterol-ipratropium (DUONE B) nebulizer solution 3 mL 06/17/2019 Nebulization 3 EVERY 4 HOURS dexamethasone (DECADRON) 1 MG/ML solution 10 mg 06/17/2019 06/18/2019 Oral 10 EVERY 12 HOURS SCHEDULED benzonatate (TESSALON) capsule 100 mg 06/17/2019 Oral 100 3 TIMES DAILY PRN guaifenesin-dextromethorphan (ROBITUSSIN DM) 100-10 MG/5ML liquid 5 mL 06/17/2019 Oral 5 EVERY 4 HOURS LA N polyethylene glycol (MIRALAX) packet 17 g 06/17/2019 Oral 17 DAILY PRN melatonin tablet 5 mg 06/17/2019 Oral 5 BEDT HUMAIRA PRN sodium chloride 0.9% flush bag 06/17/2019 Intravenous 25 PRN FLUSH eletriptan (RELPAX) tablet 40 mg 06/17/2019 Oral 40 EVERY 2 HOURS PRN diphenhydrAMINE (BENADRYL) capsule 25 mg 06/17/2019 Oral 25 EVERY 4 HOURS PRN glucagon (GLUCAGEN) injection 1 mg 06/17/2019 Intramuscular 1 PRN ondansetron (ZOFRAN) injection 4 mg 06/17/2019 Intravenous 4 EVERY 6 HOURS PRN acetaminophen (TYLENOL) suppository 650 mg 06/17/2019 Rectal 650 EVERY 4 HOURS PRN prochlorperazine (COMPAZINE) injection 10 mg 06/17/2019 Intravenous 10 EVERY 6 HOURS PRN dextrose (GLUTOSE) 40 % oral gel 15-30 g 06/17/2019 Oral 15 PRN acetaminophen (TYLENOL) tablet 650 mg 06/17/2019 Oral 650 EVERY 4 HOURS PRN dextrose 50 % solution 50 g 06/17/2019 Intravenous 50 PRN ondansetron (ZOFRAN-ODT) dis integrating tablet 4 mg 06/17/2019 Oral 4 EVERY 6 HOURS PRN albuterol (PROVENTIL) nebulizer solution 2 .5 mg 06/17/2019 Inhalation 2.5 EVERY 2 HOURS PRN atorvastatin (LIPITOR) tablet 40 mg 06/17/2019 Oral 40 Every evening divalproex (DEPAKOTE) tablet 500 mg 06/17/2019 Oral 500 3 TIMES DAILY WITH MEALS terbinafine (LAMISIL) 1 % cream 06/17/2019 Topical 2 TIMES DAILY pramipexole (MIRAPEX) tablet 0.5 mg 06/17/2019 Oral 0.5 BEDTIME losartan (COZAAR) tablet 50 mg 06/17/2019 Oral 50 DAILY enoxaparin (LOVENOX) injection 40 mg 06/17/2019 Subcutaneous 40 EVERY 24 HOURS spironolactone (ALDACTONE) tablet 25 mg 06/17/2019 Oral 25 EVERY 48 HOURS metoprolol tartrate (LOPRESSOR) tablet 100 mg 06/17/2019 Oral 100 2 TIMES DAILY fluticasone-vilanterol (BREO ELLIPTA) 100-25 MCG/INH inhaler 1 puff 06/17/2019 Inhalati on 1 DAILY baclofen (LIORESAL) tablet 10 mg 06/17/2019 Oral 10 2 TIMES DAILY insulin aspart (NOVOLOG) injection 35 Unit s 06/17/2019 Subcutaneous 35 3 TIMES DAILY WITH MEALS insulin detemir (LEVEMIR FLE XTOUCH) pen injection 35 Units 06/17/2019 Subcutaneous 35 2 TIMES DAILY insulin aspart (NOVOLOG FLEX PEN) pen injection 0-28 Units 06/17/2019 Subcutaneous 4 TIMES DAILY BEFORE MEALS T NIGHTLY liraglutide (VICTOZA) pen injection 1.8 mg 06/17/2019 Subcutaneous 1.8 Every evening solifenacin (VESICARE) tablet 5 mg 06/17/2019 Oral 5 DAILY famotidine (PEPCID) tablet 20 mg 06/17/2019 Oral 20 2 TIMES DAILY furosemide (LASIX) tablet 40 mg 06/17/2019 Oral 40 2 TIMES DAILY enoxaparin (LOVENOX) injection 60 mg 06/17/2019 Subcutaneous 60 2 TIMES DAILY albuterol-ipratropium (DUONE B) nebulizer solution 3 mL 06/18/2019 Nebulization 3 EVERY 6 HOURS insulin aspart (NOVOLOG FLEX PEN) pen injection 0-28 Units 06/18/2019 Subcutaneous ONCE levothyroxine (SYNTHROID) tablet 175 mcg 06/18/2019 Oral 175 EVERY OTHER DAY levothyroxine (SYNTHROID) tablet 150 mcg 06/18/2019 Oral 150 EVERY OTHER DAY hydrochlorothiazide (HYDRODIURIL) tablet 2 5 mg 06/18/2019 Oral 25 EVERY MORNING ibuprofen (MOTRIN) tablet 400 mg 06/18/2019 Oral 400 EVERY 6 HOURS PRN predniSONE (DELTASONE) tablet 20 mg 06/18/2019 Oral 20 2 TIMES DAILY 0.9% NaCl infusion 06/18/2019 Intravenous 100 CONTINUOUS insulin isophane (HUMULIN N KWIKPEN) pen injection 10 Units 06/18/2019 Subcutaneous 10 2 TIMES DAILY predniSONE (DELTASONE) tablet 40 mg 06/19/2019 06/22/2019 Oral 40 DAILY insulin detemir (LEVEMIR FLE XTOUCH) pen injection 10 Units 06/19/2019 Subcutaneous 10 ONCE eletriptan (RELPAX) tablet 20 mg 06/19/2019 Oral 20 ONCE azithromycin (ZITHROMAX) tablet 500 mg 06/19/2019 06/22/2019 Oral 500 EVERY 24 HOURS insulin detemir (LEVEMIR FLE XTOUCH) pen injection 45 Units 06/19/2019 Subcutaneous 45 2 TIMES DAILY insulin isophane (HUMULIN N KWIKPEN) pen injection 20 Units 06/19/2019 Subcutaneous 20 2 TIMES DAILY labetalol (TRANDATE) injection 10 mg 06/19/2019 Intravenous 10 EVERY 4 HOURS PRN acetaminophen (OFIRMEV) injection 1,000 mg 06/20/2019 Intravenous 1000 ONCE albuterol-ipratropium (DUONE B) nebulizer solution 3 mL 06/20/2019 Nebulization 3 3 TIMES DAILY zuknhco-jxatuyqaeisge-fgkkot ne (EXCEDRIN MIGRAINE) tablet 1 tablet 06/20/2019 Oral 1 EVERY 6 HOURS PRN iohexol (OMNIPAQUE 350) 350 MG/ML injection 120 mL 06/20/2019 Intravenous 120 ONCE insulin detemir (LEVEMIR FLE XTOUCH) pen injection 35 Units 06/20/2019 Subcutaneous 35 2 TIMES DAILY hydrOXYzine (ATARAX) tablet 25 mg 06/20/2019 Oral 25 3 TIMES DAILY PRN insulin aspart (NOVOLOG FLEX PEN) pen injection 0-28 Units 06/21/2019 Subcutaneous 4 TIMES DAILY BEFORE MEALS T NIGHTLY insulin isophane (HUMULIN N KWIKPEN) pen injection 6 Units 06/21/2019 Subcutaneous 6 ONCE divalproex (DEPAKOTE) tablet 1,000 mg 06/21/2019 Oral 1000 2 TIMES DAILY insulin isophane (HUMULIN N KWIKPEN) pen injection 28 Units 06/21/2019 Subcutaneous 28 2 TIMES DAILY saline (DEEP SEA) 0.65 % nasal solution 1 spray 06/21/2019 Nasal 1 2 TIMES DAILY PRN predniSONE (DELTASONE) tablet 20 mg 06/22/2019 06/24/2019 Oral 20 DAILY predniSONE (DELTASONE) tablet 10 mg 06/24/2019 06/26/2019 Oral 10 DAILY insulin aspart U-100 Insulin Pen 08/27/2019 SUBCUT 35 unit losartan Tablet 2019 PO 50 mg diclofenac sodium Gel 08/27/2019 TOPICAL 2 g atorvastatin Tablet 08/27/2019 PO 40 mg sumatriptan succinate Tablet 08/27/2019 PO 100 mg divalproex Tablet,Kristie yed Release (Dr/Ec) 08/27/2019 PO 500 mg spironolactone Tablet 08/27/2019 PO 25 mg pramipexole Tablet 08/27/2019 PO 0.5 mg hydroxyzine HCl Tablet 08/27/2019 PO 25 mg diphenhydramine HCl Capsule 08/27/2019 PO 25 mg ferrous sulfate Tablet 08/27/2019 PO 325 mg levothyroxine Tablet 08/27/2019 PO 175 mcg ipratropium-albuterol Solution For Nebulization 08/27/2019 INHALATION 3 mL furosemide Tablet 08/27/2019 PO 40 mg metoprolol tartrate Tablet 08/27/2019 PO 100 mg fluticasone furoate-vilanterol Blister With Device 08/27/2019 INHALATION 1 inh baclofen Tablet 2019 PO 10 mg insulin detemir U-100 Insuli n Pen 08/27/2019 SUBCUT 35 unit liraglutide Pen Injector 08/27/2019 SUBCUT 1.2 mg pregabalin Capsule 08/27/2019 PO 200 mg solifenacin Tablet 08/27/2019 PO 5 mg pantoprazole Tablet,De layed Release (/Ec) 08/27/2019 PO 40 mg insulin aspart U-100 Insulin Pen 08/28/2019 SUBCUT 40 unit insulin detemir U-100 Insuli n Pen 08/28/2019 SUBCUT 40 unit cephalexin Capsule 09/12/2019 PO 500 MG hydrocodone-acetaminophen Ta blet 10/20/2019 PO 1 TAB naproxen Tablet 2019 PO 500 mg ondansetron Tablet,Disintegr ating 11/05/2019 PO 4 mg semaglutide Pen Injector 11/05/2019 SUBCUT 1 mg insulin degludec Insulin Pen 11/05/2019 SUBCUT 40 unit Problems Date Dx Coded Attending Type Code Diagnosis Diagnosed By 08/28/2016 PUJA CUELLAR WORKING E03.9 Hypothyroidism, unspecified 08/28/2016 PUJA CUELLAR WORKING I10 Essential (primary) hypertension 08/28/2016 PUJA CUELLAR WORKING R07.89 Other chest pain 08/28/2016 PUJA CUELLAR WORKING Z01.419 Encounter for gynecological examination (general) (routine) without abnormal findings 08/28/2016 PUJA CUELLAR WORKING Z12.4 Encounter for screening for malignant neoplasm of cerv ix 08/28/2016 WORKING E03.9 Hypothyroidism, unspecified 08/28/2016 WORKING G43.009 Migraine without aura, not intractable, without status migrainosus 08/28/2016 WORKING G89.4 Chronic pain syndrome 08/28/2016 WORKING I10 E ssential (primary) hypertension 08/28/2016 WORKING M79.7 Fibromyalgia 08/28/2016 WORKING R07.89 Other chest pain 08/28/2016 WORKING R56.9 Unspecified convulsions ([facility]) 08/28/2016 WORKING R60.0 Localized edema 08/28/2016 WORKING Z01.419 Encounter for gynecological examination (general) (routine) without abnormal findings 08/28/2016 WORKING Z12.4 Encounter for screening for malignant neoplasm of cervix 08/28/2016 WORKING Z23 E ncounter for immunization 08/28/2016 WORKING Z68.43 Body mass index (bmi) 50-59.9 , adult ([facility]) 09/01/2016 PUJA CUELLAR WORKING R60.0 Localized edema 10/16/2016 V [id number] Ins ect Bite 10/17/2016 PUJA CUELLAR WORKING E03.9 Hypothyroidism, unspecified 10/17/2016 PUJA CUELLAR WORKING L08.9 Local infection of the skin and subcutaneous tissue, u nspecified 10/17/2016 PUJA CUELLAR WORKING M79.89 Other specified soft tissue disorders 10/17/2016 PUJA CUELLAR WORKING R06.02 Shortness of breath 10/17/2016 PUJA CUELLAR WORKING R07.89 Other chest pain 10/17/2016 PUJA CUELLAR WORKING S60.469A Insect bite (nonvenomous) of unspecified finger, initial encounter 10/17/2016 PUJA CUELLAR WORKING W57.XXXA Bitten or stung by nonvenomous insect an d other nonvenomous arthropods, initial encounter 11/15/2016 PUJA CUELLAR WORKING E03.9 Hypothyroidism, unspecified 11/15/2016 PUJA CUELLAR WORKING M79.672 Pain in left foot 11/15/2016 PUJA CUELLAR WORKING M79.89 Other specified soft tissue disorders 11/15/2016 PUJA CUELLAR WORKING M79.672 Pain in left foot 11/15/2016 PUJA CUELLAR WORKING M79.89 Other specified soft tissue disorders 12/12/2016 DEVADER, [place]BDULKADIR E V 78242 0 Chest Pain DEVADER, ABDULKADIR E 12/12/2016 DEVADER, ABDULKADIR E V I10 Essential (primary) hypertension DEVADER, ABDULKADIR E 12/12/2016 DEVADER, ABDULKADIR E V R07.9 Chest pain, unspecified DEVADER, ABDULKADIR E 01/03/2017 LEXOW, NATALIE P V R07.9 Chest pain, unspecified LEXOW, NATALIE P 02/19/2017 INGRAM, ANN Gutierrez V I10 Essential (primary) hypertension INGRAM, ANN Gutierrez 02/19/2017 INGRAM, ANN Gutierrez V R06.0 2 Shortness of breath INGRAM, ANN Gutierrez 02/19/2017 INGRAM, ANN Gutierrez V R53.8 3 Other fatigue INGRAM, ANN Gutierrez 02/19/2017 INGRAM, ANN Guiterrez V R60.9 Edema, unspecified INGRAM, ANN Gutierrez 02/19/2017 INGRAM, ANN Gutierrez V Z82.4 9 Family history of ischemic heart disease and other diseases of the circulatory system INGRAM, ANN Gutierrez 08/07/2017 P R9431 Abno rmal electrocardiogram [ECG] [EKG] 08/21/2017 House Shawn Final E03. 9 Hypothyroidism, unspecified 08/21/2017 House Shawn Final E11. 9 Type 2 diabetes mellitus without complications 08/21/2017 House Shawn Final E66. 01 Morbid (severe) obesity due to excess calories 08/21/2017 House Shawn Final I10 Essential (primary) hypertension 08/21/2017 House Shawn Final I25. 2 Old myocardial infarction 08/21/2017 House Shawn Reason M21.6X2 Other acquired deformities of left foot 08/21/2017 House Shawn Final M67. 02 Short Achilles tendon (acquired), left ankle 08/21/2017 House Shawn Final R56. 9 Unspecified convulsions 08/21/2017 House Shawn Final Z68. 44 Body mass index (BMI) 60.0-69.9, adult 08/21/2017 House Shawn Final Z79. 84 long-term (current) use of oral hypoglycemic drugs 08/21/2017 House Shawn Final Z 87.891 Personal history of nicotine dependence 08/21/2017 House Shawn Final Z88. 0 Allergy status to penicillin 08/21/2017 House Shawn Final Z88. 8 Allergy status to other drugs, medicaments and biological substances status 02/11/2018 FABIAN GARCÍA 338.2 CHRONIC PAIN 02/11/2018 FABIAN GARCÍA 346.9 0 MIGRAINE, UNSPECIFIED, WITHOUT MENTION OF INTRACTABLE MIGRAINE, WITHOUT MENTION OF STATUS MIGRAINOSUS 02/11/2018 FABIAN GARCÍA 724.2 LUMBAGO 02/11/2018 FABIAN GARCÍA G43.9 09 MIGRAINE, UNSP, NOT INTRACTABLE, WITHOUT STATUS MIGRAINOSUS 02/11/2018 FABIAN GARCÍA G89.2 9 OTHER CHRONIC PAIN 02/11/2018 FABIAN GARCÍA M54.5 LOW BACK PAIN 02/19/2018 Ronak Laurent [...] LEFT FOOT, INITIAL ENCOUNTER 05/16/2018 NORMA VAZQUEZ APRN Ot G25.81 RESTLESS LEGS SYNDROME 05/16/2018 NORMA VAZQUEZ APRN Ot G47.10 HYPERSOMNIA, UNSPECIFIED 05/16/2018 NORMA VAZQUEZ APRN Ot J42 UNSPECIFIED CHRONIC BRONCHITIS 05/16/2018 NORMA VAZQUEZ APRN Ot J45.909 UNSPECIFIED ASTHMA, UNCOMPLICATED 05/27/2018 NORMA VAZQUEZ POTATO PANCAKE FRIER Ot G25.81 RESTLESS LEGS SYNDROME 05/27/2018 NORMA VAZQUEZ POTATO PANCAKE FRIER Ot G47.10 HYPERSOMNIA, UNSPECIFIED 05/27/2018 NORMA VAZQUEZ POTATO PANCAKE FRIER Ot J42 UNSPECIFIED CHRONIC BRONCHITIS 05/27/2018 ARAM VAZQUEZINE E POTATO PANCAKE FRIER Ot J45.909 UNSPECIFIED ASTHMA, UNCOMPLICATED 05/28/2018 TAYLOR, NORMA E POTATO PANCAKE FRIER Ot G25.81 RESTLESS LEGS SYNDROME 05/28/2018 TAYLOR, NORMA E POTATO PANCAKE FRIER Ot G47.10 HYPERSOMNIA, UNSPECIFIED 05/28/2018 TAYLORARAM SORENSONINE E POTATO PANCAKE FRIER Ot J42 UNSPECIFIED CHRONIC BRONCHITIS 05/28/2018 ARAM VAZQUEZINE E POTATO PANCAKE FRIER Ot J45.909 UNSPECIFIED ASTHMA, UNCOMPLICATED 05/31/2018 TAYLOR, NORMA E POTATO PANCAKE FRIER Ot G25.81 RESTLESS LEGS SYNDROME 05/31/2018 TAYLOR, NORMA E POTATO PANCAKE FRIER Ot G47.10 HYPERSOMNIA, UNSPECIFIED 05/31/2018 TAYLORARAM SORENSONINE E POTATO PANCAKE FRIER Ot J42 UNSPECIFIED CHRONIC BRONCHITIS 05/31/2018 ARAM VAZQUEZINE E POTATO PANCAKE FRIER Ot J45.909 UNSPECIFIED ASTHMA, UNCOMPLICATED 06/17/2018 NORMA VAZQUEZ POTATO PANCAKE FRIER Ot G25.81 RESTLESS LEGS SYNDROME 06/17/2018 NORMA VAZQUEZ POTATO PANCAKE FRIER Ot G47.10 HYPERSOMNIA, UNSPECIFIED 06/17/2018 ARAM VAZQUEZINE E POTATO PANCAKE FRIER Ot J42 UNSPECIFIED CHRONIC BRONCHITIS 06/17/2018 ARAM VAZQUEZINE E POTATO PANCAKE FRIER Ot J45.909 UNSPECIFIED ASTHMA, UNCOMPLICATED 07/08/2018 ARAM VAZQUEZINE E POTATO PANCAKE FRIER Ot G25.81 RESTLESS LEGS SYNDROME 07/08/2018 ARAM VAZQUEZINE E POTATO PANCAKE FRIER Ot G47.10 HYPERSOMNIA, UNSPECIFIED 07/08/2018 ARAM VAZQUEZINE E POTATO PANCAKE FRIER Ot J42 UNSPECIFIED CHRONIC BRONCHITIS 07/08/2018 ARAM VAZQUEZINE E POTATO PANCAKE FRIER Ot J45.909 UNSPECIFIED ASTHMA, UNCOMPLICATED 07/08/2018 ARAM VAZQUEZINE E POTATO PANCAKE FRIER Ot G25.81 RESTLESS LEGS SYNDROME 07/08/2018 ARAM VAZQUEZINE E POTATO PANCAKE FRIER Ot G47.10 HYPERSOMNIA, UNSPECIFIED 07/08/2018 ARAM VAZQUEZINE E POTATO PANCAKE FRIER Ot J42 UNSPECIFIED CHRONIC BRONCHITIS 07/08/2018 NORMA VAZQUEZ POTATO PANCAKE FRIER Ot J45.909 UNSPECIFIED ASTHMA, UNCOMPLICATED 07/25/2018 TAMEKA KEYS, LEATHA Shah Ot E03. 9 HYPOTHYROIDISM, UNSPECIFIED 07/25/2018 LEATHA ENGLISH MD J Ot E11. 9 TYPE 2 DIABETES MELLITUS WITHOUT COMPLIC 07/25/2018 YOLI ENGLISH MDUS J Ot N39. 0 URINARY TRACT INFECTION, SITE NOT SPECIF 07/25/2018 LEATHA ENGLISH MD J Ot R40. 4 TRANSIENT ALTERATION OF AWARENESS 07/25/2018 YOLI ENGLISH MDUS J Ot R55 SYNCOPE AND COLLAPSE 07/25/2018 YOLI ENGLISH MDUS J Ot Z87.891 PERSONAL HISTORY OF NICOTINE DEPENDENCE 07/25/2018 LEATHA ENGLISH MD J Ot Z88. 0 ALLERGY STATUS TO PENICILLIN 07/25/2018 YOLI ENGLISH MDUS J Ot Z88. 8 ALLERGY STATUS TO OTH DRUG/MEDS/BIOL SUB 07/29/2018 LEATHA ENGLISH MD J Ot E03. 9 HYPOTHYROIDISM, UNSPECIFIED 07/29/2018 LEATHA ENGLISH MD J Ot E11. 9 TYPE 2 DIABETES MELLITUS WITHOUT COMPLIC 07/29/2018 LEATHA ENGLISH MD J Ot N39. 0 URINARY TRACT INFECTION, SITE NOT SPECIF 07/29/2018 YOLI ENGLISH MDUS J Ot R40. 4 TRANSIENT ALTERATION OF AWARENESS 07/29/2018 YOLI ENGLISH MDUS J Ot R55 SYNCOPE AND COLLAPSE 07/29/2018 YOLI ENGLISH MDUS J Ot Z87.891 PERSONAL HISTORY OF NICOTINE DEPENDENCE 07/29/2018 LEATHA ENGLISH MD J Ot Z88. 0 ALLERGY STATUS TO PENICILLIN 07/29/2018 YOLI ENGLISH MDUS J Ot Z88. 8 ALLERGY STATUS TO OTH DRUG/MEDS/BIOL SUB 08/05/2018 ROSA GREENBERG DOI Ot E03.9 HYPOTHYROIDISM, UNSPECIFIED 08/05/2018 ROSA GREENBERG DOI Ot E11.9 TYPE 2 DIABETES MELLITUS WITHOUT COMPLIC 08/05/2018 ROSA GREENBERG DOI Ot E66.2 MORBID (SEVERE) OBESITY WITH ALVEOLAR HY 08/05/2018 DIONICIO SALAS CAMILA Ot E78.00 PURE HYPERCHOLESTEROLEMIA, UNSPECIFIED 08/05/2018 DIONICIO SALAS CAMILA Ot E87.2 ACIDOSIS 08/05/2018 DIONICIO SALAS CAMILA Ot F32.9 MAJOR DEPRESSIVE DISORDER, SINGLE EPISOD 08/05/2018 DIONICIO SALAS CAMILA Ot F41.9 ANXIETY DISORDER, UNSPECIFIED 08/05/2018 DIONICIO SALAS CAMILA Ot G43.90 9 MIGRAINE, UNSP, NOT INTRACTABLE, WITHOUT 08/05/2018 DIONICIO SALAS CAMILA Ot I11.0 HYPERTENSIVE HEART DISEASE WITH HEART FA 08/05/2018 DIONICIO SALAS CAMILA Ot I25.10 ATHSCL HEART DISEASE OF [place] CORONARY 08/05/2018 DIONICIO SALAS CAMILA Ot I25.2 OLD MYOCARDIAL INFARCTION 08/05/2018 DIONICIO SALAS CAMILA Ot I50.9 HEART FAILURE, UNSPECIFIED 08/05/2018 DIONICIO SALAS CAMILA Ot J44.1 CHRONIC OBSTRUCTIVE PULMONARY DISEASE W 08/05/2018 ROSA GREENBERG DOI Ot J45.90 1 UNSPECIFIED ASTHMA WITH (ACUTE) EXACERBA 08/05/2018 DIONICIO SALAS CAMILA Ot J98.11 ATELECTASIS 08/05/2018 DIONICIO SALAS CAMILA Ot M79.7 FIBROMYALGIA 08/05/2018 DIONICIO SALAS CAMILA Ot Z68.44 BODY MASS INDEX (BMI) 60.0-69.9, ADULT 08/05/2018 ROSA GREENBERG DOI Ot 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 08/05/2018 DIONICIO SALAS CAMILA Ot Z86.73 PRSNL HX OF TIA (TIA), AND CEREB INFRC W 08/05/2018 DIONICIO SALAS CAMILA Ot Z87.89 1 PERSONAL HISTORY OF NICOTINE DEPENDENCE 08/05/2018 DIONICIO SALAS CAMILA Ot E03.9 HYPOTHYROIDISM, UNSPECIFIED 08/05/2018 DIONICIO SALAS CAMILA Ot E11.9 TYPE 2 DIABETES MELLITUS WITHOUT COMPLIC 08/05/2018 DIONICIO SALAS CAMILA Ot E66.2 MORBID (SEVERE) OBESITY WITH ALVEOLAR HY 08/05/2018 DIONICIO SALAS CAMILA Ot E78.00 PURE HYPERCHOLESTEROLEMIA, UNSPECIFIED 08/05/2018 DIONICIO SALAS CAMILA Ot E87.2 ACIDOSIS 08/05/2018 DIONICIO SALAS CAMILA Ot F32.9 MAJOR DEPRESSIVE DISORDER, SINGLE EPISOD 08/05/2018 DIONICIO SALAS CAMILA Ot F41.9 ANXIETY DISORDER, UNSPECIFIED 08/05/2018 DIONICIO SLAAS CAMILA Ot G43.90 9 MIGRAINE, UNSP, NOT INTRACTABLE, WITHOUT 08/05/2018 DIONICIO SALAS CAMILA Ot I11.0 HYPERTENSIVE HEART DISEASE WITH HEART FA 08/05/2018 DIONICIO SALAS CAMILA Ot I25.10 ATHSCL HEART DISEASE OF [place] CORONARY 08/05/2018 CAMILA GREENBERG DO Ot I25.2 OLD MYOCARDIAL INFARCTION 08/05/2018 CAMILA GREENBERG DO Ot I50.9 HEART FAILURE, UNSPECIFIED 08/05/2018 CAMILA GREENBERG DO Ot J44.1 CHRONIC OBSTRUCTIVE PULMONARY DISEASE W 08/05/2018 CAMILA GREENBERG DO Ot J45.90 1 UNSPECIFIED ASTHMA WITH (ACUTE) EXACERBA 08/05/2018 CAMILA GREENBERG DO Ot J98.11 ATELECTASIS 08/05/2018 CAMILA GREENBERG DO Ot M79.7 FIBROMYALGIA 08/05/2018 ROSA GREENBERG DOI Ot Z68.44 BODY MASS INDEX (BMI) 60.0-69.9, ADULT 08/05/2018 CAMILA GREENBERG DO Ot Z79.4 [facility] (CURRENT) USE OF INSULIN 08/05/2018 CAMILA GREENBERG DO Ot Z86.73 PRSNL HX OF TIA (TIA), AND CEREB INFRC W 08/05/2018 CAMILA GREENBERG DO Ot Z87.89 1 PERSONAL HISTORY OF NICOTINE DEPENDENCE 08/06/2018 NORMA VAZQUEZ POTATO PANCAKE FRIER Ot G25.81 RESTLESS LEGS SYNDROME 08/06/2018 NORMA VAQZUEZ POTATO PANCAKE FRIER Ot G47.10 HYPERSOMNIA, UNSPECIFIED 08/06/2018 NORMA VAZQUEZ APRN Ot J42 UNSPECIFIED CHRONIC BRONCHITIS 08/06/2018 NORMA VAZQUEZ APRN Ot J45.909 UNSPECIFIED ASTHMA, UNCOMPLICATED 08/06/2018 NORMA VAZQUEZ APRN Ot J98.4 OTHER DISORDERS OF LUNG 08/08/2018 Nate Bassett W 278.03 OBESITY HYPOVENTILATION SYNDROME 08/08/2018 Nate Bassett W E66.2 MORBID (SEVERE) OBESITY WITH ALVEOLAR HYPOVENTILATION 08/13/2018 NORMA VAZQUEZ POTATO PANCAKE FRIER Ot G25.81 RESTLESS LEGS SYNDROME 08/13/2018 NORMA VAZQUEZ POTATO PANCAKE FRIER Ot G47.10 HYPERSOMNIA, UNSPECIFIED 08/13/2018 NORMA VAZQUEZ POTATO PANCAKE FRIER Ot J42 UNSPECIFIED CHRONIC BRONCHITIS 08/13/2018 NORMA VAZQUEZ POTATO PANCAKE FRIER Ot J45.909 UNSPECIFIED ASTHMA, UNCOMPLICATED 08/13/2018 NORMA VAZQUEZ POTATO PANCAKE FRIER Ot J98.4 OTHER DISORDERS OF LUNG 08/14/2018 TAYLORARAM SORENSONINE E POTATO PANCAKE FRIER Ot G25.81 RESTLESS LEGS SYNDROME 08/14/2018 TAYLORARAM SORENSONINE E POTATO PANCAKE FRIER Ot G47.10 HYPERSOMNIA, UNSPECIFIED 08/14/2018 TAYLORARAM SORENSONINE E POTATO PANCAKE FRIER Ot J42 UNSPECIFIED CHRONIC BRONCHITIS 08/14/2018 ARAM VAZQUEZINE E POTATO PANCAKE FRIER Ot J45.909 UNSPECIFIED ASTHMA, UNCOMPLICATED 08/14/2018 TAYLORARAM SORENSONINE Juanito POTATO PANCAKE FRIER Ot J98.4 OTHER DISORDERS OF LUNG 08/14/2018 TAYLORARAM SORENSONINE E POTATO PANCAKE FRIER Ot G25.81 RESTLESS LEGS SYNDROME 08/14/2018 TAYLORARAM SORENSONINE E POTATO PANCAKE FRIER Ot G47.10 HYPERSOMNIA, UNSPECIFIED 08/14/2018 TAYLORARAM SORENSONINE E POTATO PANCAKE FRIER Ot J42 UNSPECIFIED CHRONIC BRONCHITIS 08/14/2018 ARAM VAZQUEZINE Juanito POTATO PANCAKE FRIER Ot J45.909 UNSPECIFIED ASTHMA, UNCOMPLICATED 08/14/2018 TAYLORARAM SORENSONINE E POTATO PANCAKE FRIER Ot J98.4 OTHER DISORDERS OF LUNG 08/15/2018 NORMA VAZQUEZ POTATO PANCAKE FRIER Ot G25.81 RESTLESS LEGS SYNDROME 08/15/2018 NORMA VAZQUEZ POTATO PANCAKE FRIER Ot G47.10 HYPERSOMNIA, UNSPECIFIED 08/15/2018 TAYLORARAM SORENSONINE E POTATO PANCAKE FRIER Ot J42 UNSPECIFIED CHRONIC BRONCHITIS 08/15/2018 NORMA VAZQUEZ POTATO PANCAKE FRIER Ot J45.909 UNSPECIFIED ASTHMA, UNCOMPLICATED 08/15/2018 ARAM VAZQUEZINE E POTATO PANCAKE FRIER Ot J98.4 OTHER DISORDERS OF LUNG 08/20/2018 NORMA VAZQUEZ POTATO PANCAKE FRIER Ot G25.81 RESTLESS LEGS SYNDROME 08/20/2018 NORMA VAZQUEZ POTATO PANCAKE FRIER Ot G47.10 HYPERSOMNIA, UNSPECIFIED 08/20/2018 ARAM VAZQUEZINE Juanito POTATO PANCAKE FRIER Ot J42 UNSPECIFIED CHRONIC BRONCHITIS 08/20/2018 ARAM VAZQUEZINE Juanito POTATO PANCAKE FRIER Ot J45.909 UNSPECIFIED ASTHMA, UNCOMPLICATED 08/20/2018 TAYLORARAM SORENSONINE E POTATO PANCAKE FRIER Ot J98.4 OTHER DISORDERS OF LUNG 08/27/2018 TAYLORNORMA SORENSON POTATO PANCAKE FRIER Ot G25.81 RESTLESS LEGS SYNDROME 08/27/2018 NORMA VAZQUEZ POTATO PANCAKE FRIER Ot G47.10 HYPERSOMNIA, UNSPECIFIED 08/27/2018 ARAM VAZQUEZINE E POTATO PANCAKE FRIER Ot J42 UNSPECIFIED CHRONIC BRONCHITIS 08/27/2018 ARAM VAZQUEZINE E POTATO PANCAKE FRIER Ot J45.909 UNSPECIFIED ASTHMA, UNCOMPLICATED 08/27/2018 ARAM VAZQUEZINE E POTATO PANCAKE FRIER Ot J98.4 OTHER DISORDERS OF LUNG 08/27/2018 ARAM VAZQUEZINE E POTATO PANCAKE FRIER Ot G25.81 RESTLESS LEGS SYNDROME 08/27/2018 ARAM VAZQUEZINE E POTATO PANCAKE FRIER Ot G47.10 HYPERSOMNIA, UNSPECIFIED 08/27/2018 ARAM VAZQUEZINE E POTATO PANCAKE FRIER Ot J42 UNSPECIFIED CHRONIC BRONCHITIS 08/27/2018 ARAM VAZQUEZINE E POTATO PANCAKE FRIER Ot J45.909 UNSPECIFIED ASTHMA, UNCOMPLICATED 08/27/2018 TAYLORARAM SORENSONINE E POTATO PANCAKE FRIER Ot J98.4 OTHER DISORDERS OF LUNG 08/27/2018 TAYLORARAM SORENSONINE E POTATO PANCAKE FRIER Ot G25.81 RESTLESS LEGS SYNDROME 08/27/2018 NORMA VAZQUEZ E POTATO PANCAKE FRIER Ot G47.10 HYPERSOMNIA, UNSPECIFIED 08/27/2018 NORMA VAZQUEZ POTATO PANCAKE FRIER Ot J42 UNSPECIFIED CHRONIC BRONCHITIS 08/27/2018 NORMA VAZQUEZ POTATO PANCAKE FRIER Ot J45.909 UNSPECIFIED ASTHMA, UNCOMPLICATED 08/27/2018 ARAM VAZQUEZINE Juanito POTATO PANCAKE FRIER Ot J98.4 OTHER DISORDERS OF LUNG 09/17/2018 ARAM VAZQUEZINE E POTATO PANCAKE FRIER Ot G25.81 RESTLESS LEGS SYNDROME 09/17/2018 NORMA VAZQUEZ E POTATO PANCAKE FRIER Ot G47.10 HYPERSOMNIA, UNSPECIFIED 09/17/2018 NORMA VAZQUEZ POTATO PANCAKE FRIER Ot J42 UNSPECIFIED CHRONIC BRONCHITIS 09/17/2018 NORMA VAZQUEZ POTATO PANCAKE FRIER Ot J45.909 UNSPECIFIED ASTHMA, UNCOMPLICATED 09/17/2018 ARAM VAZQUEZINE E POTATO PANCAKE FRIER Ot J98.4 OTHER DISORDERS OF LUNG 09/18/2018 ARAM VAZQUEZINE E POTATO PANCAKE FRIER Ot G25.81 RESTLESS LEGS SYNDROME 09/18/2018 ARAM VAZQUEZINE E POTATO PANCAKE FRIER Ot G47.10 HYPERSOMNIA, UNSPECIFIED 09/18/2018 ARAM VAZQUEZINE E POTATO PANCAKE FRIER Ot J42 UNSPECIFIED CHRONIC BRONCHITIS 09/18/2018 NORMA VAZQUEZ E POTATO PANCAKE FRIER Ot J45.909 UNSPECIFIED ASTHMA, UNCOMPLICATED 09/18/2018 ARAM VAZQUEZINE E POTATO PANCAKE FRIER Ot G25.81 RESTLESS LEGS SYNDROME 09/18/2018 NORMA VAZQUEZ POTATO PANCAKE FRIER Ot G47.10 HYPERSOMNIA, UNSPECIFIED 09/18/2018 ARAM VAZQUEZINE E POTATO PANCAKE FRIER Ot J42 UNSPECIFIED CHRONIC BRONCHITIS 09/18/2018 ARAM VAZQUEZINE E POTATO PANCAKE FRIER Ot J45.909 UNSPECIFIED ASTHMA, UNCOMPLICATED 09/18/2018 NORMA VAZQUEZ POTATO PANCAKE FRIER Ot G25.81 RESTLESS LEGS SYNDROME 09/18/2018 NORMA VAZQUEZ POTATO PANCAKE FRIER Ot G47.10 HYPERSOMNIA, UNSPECIFIED 09/18/2018 ARAM VAZQUEZINE E POTATO PANCAKE FRIER Ot J42 UNSPECIFIED CHRONIC BRONCHITIS 09/18/2018 ARAM VAZQUEZINE E POTATO PANCAKE FRIER Ot J45.909 UNSPECIFIED ASTHMA, UNCOMPLICATED 09/18/2018 ARAM VAZQUEZINE E POTATO PANCAKE FRIER Ot J98.4 OTHER DISORDERS OF LUNG 09/18/2018 NORMA VAZQUEZ POTATO PANCAKE FRIER Ot G25.81 RESTLESS LEGS SYNDROME 09/18/2018 NORMA VAZQUEZ POTATO PANCAKE FRIER Ot G47.10 HYPERSOMNIA, UNSPECIFIED 09/18/2018 NORMA VAZQUEZ POTATO PANCAKE FRIER Ot J42 UNSPECIFIED CHRONIC BRONCHITIS 09/18/2018 ARAM VAZQUEZINE E POTATO PANCAKE FRIER Ot J45.909 UNSPECIFIED ASTHMA, UNCOMPLICATED 09/18/2018 ARAM VAZQUEZINE Juanito POTATO PANCAKE FRIER Ot J98.4 OTHER DISORDERS OF LUNG 09/19/2018 NORMA VAZQUEZ POTATO PANCAKE FRIER Ot G25.81 RESTLESS LEGS SYNDROME 09/19/2018 NORMA VAZQUEZ POTATO PANCAKE FRIER Ot G47.10 HYPERSOMNIA, UNSPECIFIED 09/19/2018 NORMA VAZQUEZ POTATO PANCAKE FRIER Ot J42 UNSPECIFIED CHRONIC BRONCHITIS 09/19/2018 NORMA VAZQUEZ POTATO PANCAKE FRIER Ot J45.909 UNSPECIFIED ASTHMA, UNCOMPLICATED 09/19/2018 ARAM VAZQUEZINE Juanito POTATO PANCAKE FRIER Ot G25.81 RESTLESS LEGS SYNDROME 09/19/2018 NORMA VAZQUEZ POTATO PANCAKE FRIER Ot G47.10 HYPERSOMNIA, UNSPECIFIED 09/19/2018 ARAM VAZQUEZINE E POTATO PANCAKE FRIER Ot J42 UNSPECIFIED CHRONIC BRONCHITIS 09/19/2018 ARAM VAZQUEZINE E POTATO PANCAKE FRIER Ot J45.909 UNSPECIFIED ASTHMA, UNCOMPLICATED 10/06/2018 ARAM VAZQUEZINE Juanito POTATO PANCAKE FRIER Ot G25.81 RESTLESS LEGS SYNDROME 10/06/2018 NORMA VAZQUEZ POTATO PANCAKE FRIER Ot G47.10 HYPERSOMNIA, UNSPECIFIED 10/06/2018 TAYLOR, NORMA E POTATO PANCAKE FRIER Ot J42 UNSPECIFIED CHRONIC BRONCHITIS 10/06/2018 TAYLOR, NORMA E POTATO PANCAKE FRIER Ot J45.909 UNSPECIFIED ASTHMA, UNCOMPLICATED 10/06/2018 TAYLOR, NORMA E POTATO PANCAKE FRIER Ot J98.4 OTHER DISORDERS OF LUNG 10/07/2018 TAYLOR, NORMA E POTATO PANCAKE FRIER Ot G25.81 RESTLESS LEGS SYNDROME 10/07/2018 TAYLOR NORMA E POTATO PANCAKE FRIER Ot G47.10 HYPERSOMNIA, UNSPECIFIED 10/07/2018 TAYLOR NORMA E POTATO PANCAKE FRIER Ot J42 UNSPECIFIED CHRONIC BRONCHITIS 10/07/2018 TAYLOR, NORMA E POTATO PANCAKE FRIER Ot J45.909 UNSPECIFIED ASTHMA, UNCOMPLICATED 10/07/2018 TAYLOR, NORMA E POTATO PANCAKE FRIER Ot J98.4 OTHER DISORDERS OF LUNG 12/19/2018 RUPESH CONRAD [id number] Hyperglycemia 12/19/2018 RUPESH CONRAD [id number] Hyperglycemia 12/19/2018 RUPESH CONRAD [id number] Hyperglycemia 12/19/2018 KREHBWALDEMAR, RUPESH FERRARA [id number] Hyperglycemia 12/19/2018 KREHBWALDEMAR, RUPESH FERRARA [id number] Hyperglycemia 12/19/2018 KREHBWALDEMAR, RUPESH FERRARA [id number] Hyperglycemia 12/19/2018 RUPESH CONRAD R73.9 Hyperglycemia, unspecified 12/19/2018 STANFORDHBRUPESH MEDEIROS R73.9 Hyperglycemia, unspecified 12/19/2018 RUPESH CONRAD R73.9 Hyperglycemia, unspecified 12/19/2018 STANFORDHBWALDEMAR, RUPESH FERRARA R73.9 Hyperglycemia, unspecified 12/29/2018 TOM PEREZ V [id number] Hyperglycemia 12/29/2018 TOM PEREZ V E11.65 Type 2 diabetes mellitus with hyperglycemia (HCC) 12/29/2018 TOM PEREZ R73.9 Hyperglycemia, unspecified 12/29/2018 TOM PEREZ E03.9 Hypothyroidism, unspecified 12/29/2018 TOM PEREZ E11.65 Type 2 diabetes mellitus with hyperglycemia (HCC) 12/29/2018 TOM PEREZ F32.9 Major depressive disorder, single episode, unspecified 12/29/2018 TOM PEREZ G40.909 Epilepsy, unspecified, not intractable, without status epilepticus (HCC) 12/29/2018 TOM PEREZ G89.29 Other chronic pain 12/29/2018 TOM PEREZ I10 Essential (primary) hypertension 12/29/2018 TOM PEREZ I25.2 Old myocardial infarction 12/29/2018 TOM PEREZ J45.909 Unspecified asthma, uncomplicated 12/29/2018 TOM PEREZ M19.90 Unspecified osteoarthritis, unspecified site 12/29/2018 TOM PEREZ M79.7 Fibromyalgia 12/29/2018 TOM PEREZ R73.9 Hyperglycemia, unspecified 12/29/2018 TOM PEREZ Z79.84 terminal superintendent (current) use of oral hypoglycemic drugs 12/29/2018 TOM PEREZ Z87.891 Personal history of nicotine dependence 12/29/2018 TOM PEREZ Z88.0 Allergy status to penicillin 12/29/2018 TOM PEREZ Z88.5 Allergy status to narcotic agent status 12/29/2018 TOM PEREZ Z88.8 Allergy status to other drugs, medicaments and biological substances status 01/07/2019 WILMER MALONEY I10 Essential (primary) hypertension 01/07/2019 WILMER MALONEY K20.9 Esophagitis, unspecified 01/07/2019 WILMER MALONEY R73.9 Hyperglycemia, unspecified 01/07/2019 WILMER MALONEY I10 Essential (primary) hypertension 01/07/2019 WILMER MALONEY K20.9 Esophagitis, unspecified 01/07/2019 WILMER MALONEY R73.9 Hyperglycemia, unspecified 05/05/2019 JOLLY SOTELO [id number] Hypertension 05/05/2019 JOLLY SOTELO 640 Foot Numbness 05/05/2019 JOLLY SOTELO [id number] Hypertension 05/05/2019 JOLLY SOTELO 640 Foot Numbness 05/05/2019 JOLLY SOTELO [id number] Hypertension 05/05/2019 JLOLY SOTELO 640 Foot Numbness 05/05/2019 JOLLY SOTELO 640 Foot Numbness 05/05/2019 JOLLY SOTELO 640 Foot Numbness 05/05/2019 JOLLY SOTELO 640 Foot Numbness 05/05/2019 JOLLY SOTELO 640 Foot Numbness 05/05/2019 JOLLY SOTELO 640 Foot Numbness 05/05/2019 JOLLY SOTELO M25.57 1 Pain in right ankle and joints of right 05/05/2019 JOLLY SOTELO M25.57 1 Pain in right ankle and joints of right 06/05/2019 GRUPO HI V [id number] Loss of Consciousness 06/05/2019 GRUPO HI V R41.82 Altered mental status, unspecified 06/05/2019 GRUPO HI V R73.9 Hyperglycemia, unspecified 06/05/2019 GRUPO HI E11.65 Type 2 diabetes mellitus with hyperglycemia (HCC) 06/05/2019 GRUPO HI I10 Essential (primary) hypertension 06/05/2019 GRUPO HI R41.82 Altered mental status, unspecified 06/05/2019 GRUPO HI R55 Syncope and collapse 06/05/2019 GRUPO HI Z87.891 Personal history of nicotine dependence 06/22/2019 TONIE IRMA J V 28 Cough 06/22/2019 FIDEL SCHILLINGBIN J A J18. 1 Lobar pneumonia, unspecified organism (HCC) 06/22/2019 TONIE IRMA J V J18. 9 Pneumonia, unspecified organism 06/22/2019 TONIE IRMA J V R56. 9 Unspecified convulsions (HCC) 06/22/2019 IRMA SCHILLING P J12. 3 Human metapneumovirus pneumonia 06/22/2019 MCIMELANI IRMA J V J18. 1 Lobar pneumonia, unspecified organism (HCC) 06/22/2019 MCIFIDEL POLOBIN J F A41. 9 Sepsis, unspecified organism (HCC) 06/22/2019 TONIE IRMA J F D50. 9 Iron deficiency anemia, unspecified 06/22/2019 FIDEL SCHILLINGBIN J F E03. 9 Hypothyroidism, unspecified 06/22/2019 IRMA SCHILLING F E11. 65 Type 2 diabetes mellitus with hyperglycemia (HCC) 06/22/2019 IRMA CSHILLING F E66. 01 Morbid (severe) obesity due to excess calories (HCC) 06/22/2019 IRMA SCHILLING F E87. 1 Hypo-osmolality and hyponatremia 06/22/2019 IRMA SCHILLING F F33. 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 81 Restless legs syndrome 06/22/2019 IRMA SCHILLING J F G40. 89 Other seizures (HCC) 06/22/2019 IRMA SCHILLING J F G43. 909 Migraine, unspecified, not intractable, without status migrainosus 06/22/2019 IRMA SCHILLING J F G47. 30 Sleep apnea, unspecified 06/22/2019 IRMA SCHILLING J F G89. 29 Other chronic pain 06/22/2019 IRMA SCHILLING J F I10 Essential (primary) hypertension 06/22/2019 IRMA SCHILLING F I25. 2 Old myocardial infarction 06/22/2019 IRMA SCHILLING F I47. 1 Supraventricular tachycardia (HCC) 06/22/2019 IRMA SCHILLING F J12. 3 Human metapneumovirus pneumonia 06/22/2019 IRMA SCHILLING F J30. 2 Other seasonal allergic rhinitis 06/22/2019 IRMA SCHILLING J F J44. 0 Chronic obstructive pulmonary disease with (acute) lower respiratory infection (HCC) 06/22/2019 IRMA SCHILLING F J96. 21 Acute and chronic respiratory failure with hypoxia ([facility]) 06/22/2019 IRMA SCHILLING F M79. 7 Fibromyalgia 06/22/2019 IRMA SCHILLING F T38.0X5A Adverse effect of glucocorticoids and sy nthetic analogues, initial encounter 06/22/2019 IRMA SCHILLING F Z68. 43 Body mass index (BMI) 50.0-59.9, adult (HCC) 06/22/2019 IRMA SCHILLING F Z79. 4 long-term (current) use of insulin (HCC) 06/22/2019 IRMA SCHILLING F Z79. 890 Hormone replacement therapy 06/22/2019 IRMA SCHILLING F Z79. 899 Other terminal superintendent (current) drug therapy 06/22/2019 IRMA SCHILLING F Z87. 891 Personal history of nicotine dependence 06/22/2019 IRMA SCHILLING F Z90. 49 Acquired absence of other specified parts of digestive tract 06/22/2019 IRMA SCHILLING F Z99. 81 Dependence on supplemental oxygen 06/22/2019 IRMA SCHILLING V E11. 9 Type 2 diabetes mellitus without complications (HCC) 08/16/2019 NORMA VAZQUEZ E POTATO PANCAKE FRIER Ot G25.81 RESTLESS LEGS SYNDROME 08/16/2019 NORMA VAZQUEZ POTATO PANCAKE FRIER Ot G47.10 HYPERSOMNIA, UNSPECIFIED 08/16/2019 NORMA VAZQUEZ POTATO PANCAKE FRIER Ot J42 UNSPECIFIED CHRONIC BRONCHITIS 08/16/2019 NORMA VAZQUEZ POTATO PANCAKE FRIER Ot J45.909 UNSPECIFIED ASTHMA, UNCOMPLICATED 08/27/2019 Oyenuga, Oyeladun W E11.0 0 Type 2 diabetes mellitus with hyperosmolarity without nonket Ajit Wayne 08/27/2019 Oyenuga, Oyeladun W E83.3 9 Other disorders of phosphorus metabolism Ajit Wayne 08/27/2019 Oyenuga, Oyeladun W E87.6 Hypokalemia Ajit Wayne 08/27/2019 Oyenuga, Oyeladun W I10 Essential (primary) hypertension Ajit Wayne 08/28/2019 Oyenuga, Oyeladun W E11.0 0 Type 2 diabetes mellitus with hyperosmolarity without nonket 08/28/2019 Oyenuga, Oyeladun W E83.3 9 Other disorders of phosphorus metabolism 08/28/2019 Oyenuga, Oyeladun W E87.6 Hypokalemia 08/28/2019 Oyenuga, Oyeladun W I10 Essential (primary) hypertension 08/28/2019 Oyenuga, Oyeladun W E11.0 0 Type 2 diabetes mellitus with hyperosmolarity without nonket 08/28/2019 Oyenuga, Oyeladun W E83.3 9 Other disorders of phosphorus metabolism 08/28/2019 OYadiel sevilla W E87.6 Hypokalemia 08/28/2019 Yadiel Mccray W I10 Essential (primary) hypertension 09/08/2019 V E11.42 Typ e 2 diabetes mellitus with diabetic polyneuropathy (HCC) 09/08/2019 V E11.65 Typ e 2 diabetes mellitus with hyperglycemia (HCC) 09/08/2019 V Z79.4 terminal superintendent (current) use of insulin (HCC) 09/08/2019 V I10 Essent ial (primary) hypertension 12/08/2019 TAYLOR, NORMA E POTATO PANCAKE FRIER Ot G25.81 RESTLESS LEGS SYNDROME 12/08/2019 TAYLOR, NORMA E POTATO PANCAKE FRIER Ot G47.10 HYPERSOMNIA, UNSPECIFIED 12/08/2019 TAYLOR, NORMA E POTATO PANCAKE FRIER Ot J42 UNSPECIFIED CHRONIC BRONCHITIS 12/08/2019 TAYLOR, NORMA E POTATO PANCAKE FRIER Ot J45.909 UNSPECIFIED ASTHMA, UNCOMPLICATED 12/08/2019 TAYLOR, NORMA E POTATO PANCAKE FRIER Ot G25.81 RESTLESS LEGS SYNDROME 12/08/2019 TAYLOR, NORMA E POTATO PANCAKE FRIER Ot G47.10 HYPERSOMNIA, UNSPECIFIED 12/08/2019 TAYLOR, NORMA E POTATO PANCAKE FRIER Ot J42 UNSPECIFIED CHRONIC BRONCHITIS 12/08/2019 TAYLOR, NORMA E POTATO PANCAKE FRIER Ot J45.909 UNSPECIFIED ASTHMA, UNCOMPLICATED 12/08/2019 TAYLOR, NORMA E POTATO PANCAKE FRIER Ot G25.81 RESTLESS LEGS SYNDROME 12/08/2019 TAYLOR, NORMA E POTATO PANCAKE FRIER Ot G47.10 HYPERSOMNIA, UNSPECIFIED 12/08/2019 TAYLOR, NORMA E POTATO PANCAKE FRIER Ot J42 UNSPECIFIED CHRONIC BRONCHITIS 12/08/2019 TAYLOR, NORMA E POTATO PANCAKE FRIER Ot J45.909 UNSPECIFIED ASTHMA, UNCOMPLICATED 12/08/2019 TAYLOR, NORMA E POTATO PANCAKE FRIER Ot J98.4 OTHER DISORDERS OF LUNG 12/08/2019 TAYLOR, NORMA E POTATO PANCAKE FRIER Ot G25.81 RESTLESS LEGS SYNDROME 12/08/2019 TAYLOR, NORMA E POTATO PANCAKE FRIER Ot G47.10 HYPERSOMNIA, UNSPECIFIED 12/08/2019 TAYLOR, NORMA E POTATO PANCAKE FRIER Ot J42 UNSPECIFIED CHRONIC BRONCHITIS 12/08/2019 TAYLOR, NORMA E POTATO PANCAKE FRIER Ot J45.909 UNSPECIFIED ASTHMA, UNCOMPLICATED 12/08/2019 NORMA VAQZUEZ APRN Ot J98.4 OTHER DISORDERS OF LUNG Procedures Code Description [place] [address] Arth rodesis, midtarsal or tarsometatarsal, single joint.. [id number] Dr schaefer of Bladder with Drainage Device, Via Opening 12/29 IMM44 MMR VACCINE SQ 08/05/2019 IMM53 PNEU MOCOCCAL POLYSACCHARIDE VACCINE (23-VALENT) 08/05/2019 REF51 AMB REFERRAL TO OB-REFRIGERATION BRAZER/SOLDERER 08/05/2019 REF62 AMB REFERRAL TO ORTHOPEDIC SURGERY 08/05/2019 LAB17 COMP REHENSIVE METABOLIC PANEL 09/03/2019 [id number] CB C WITH AUTO DIFFERENTIAL 09/03/2019 PDV051 CBC AND DIFFERENTIAL 09/03/2019 Results Test Result Range URINALYSIS REFLEX TO [...] fL 9.4-12.3 RDW STANDARD DEVIATION 47.6 fL 36.4-46 .3 GRANULOCYTE, IMMATURE, ABSOLUTE 0.0 10*3/uL 0.0-0.1 GRANULOCYTES, [...] LIPID PANEL WITH DIRECT MEASURED LDL - 0 08/28/16 11:07 TRIGLYCERIDES 183 mg/dL 20-170 CHOLESTEROL 206 mg/dL <201 HDL 73 mg/dL 40-60 LOW DENSITY LIPOPROTEIN, DIRECT 117 mg/dL <100 TSH WITH REFLEX TO FREE T4 - 08/28/16 11 :07 TSH 3RD GENERATION 4.410 u[iU]/mL 0.350- 4.900 PAP LIQUID PAP SCREENING - 08/28/16 13:0 0 PAP RESULT NEGATIVE NEGATIVE CBC WITH DIFF [...] fL 9.4-12.3 RDW STANDARD DEVIATION 45.6 fL 36.4-46 .3 GRANULOCYTE, IMMATURE, ABSOLUTE 0.0 10*3/uL 0.0-0.1 GRANULOCYTES, [...] ratio 1-1.8 NT PROBRAIN NATRIURETIC PEPTIDE - 14:45 NT PROBRAIN NATRIURETIC PEPTIDE 13 pg/mL <125 TSH WITH REFLEX TO FREE T4 - 10/17/16 14 :45 TSH 3RD GENERATION 5.320 u[iU]/mL 0.350- 4.900 T4 FREE, DIRECT - 10/17/16 14:45 T4 [...] fL 9.4-12.3 RDW STANDARD DEVIATION 51.0 fL 36.4-46 .3 GRANULOCYTE, IMMATURE, ABSOLUTE 0.0 10*3/uL 0.0-0.1 GRANULOCYTES, [...] WITH REFLEX TO FREE T4 - 11/15/16 11 :03 TSH 3RD GENERATION 1.530 u[iU]/mL 0.350- 4.900 URIC ACID SERUM - 11/15/16 11:03 URIC ACID 5.2 mg/dL 2.6-6 D-DIMER QUANT (FOR THROMBOSIS) - 7 11:03 D-DIMER 0.27 ug/mL 0-0.49 CBC WITH AUTO DIFFERENTIAL - 12/12/16 19 :30 BASOPHILS RELATIVE PERCENT 0.6 % 0.0 -2.5 EOSINOPHILS RELATIVE PERCENT 2.8 % < =5.0 HEMATOCRIT 39.9 % 34.9-44.5 HEMOGLOBIN 13.2 g/dL 12.0-15.5 LYMPHOCYTES RELATIVE PERCENT 40.0 % 2 2.0-49.0 MEAN CORPUSCULAR HEMOGLOBIN 30.8 pg 26 .0-34.0 MEAN CORPUSCULAR HEMOGLOBIN CONC 33.1 g/dL 31.0-37.0 MEAN CORPUSCULAR VOLUME 93.0 fL 81.6-9 8.3 MONOCYTES RELATIVE PERCENT 9.3 % 2.0 -9.0 NEUTROPHILS RELATIVE PERCENT 47.3 % 4 0.0-75.0 NUCLEATED RED BLOOD CELLS 0 /100 <=0 PLATELET COUNT 293 10E9/L 150-450 RED BLOOD CELL COUNT 4.29 10E12/L 3.90-5 .03 RED CELL DISTRIBUTION WIDTH 14.6 % 11 .9-15.5 [id number] 6.7 10E9/L 3.5-10.5 0264770 2.68 10E9/L 0.90-2.90 4648283 0.62 10E9/L 0.30-0.90 1241296 0.19 10E9/L 0.05-0.50 2772411 3.17 10E9/L 1.70-7.00 1156615 0.04 10E9/L 0.00-0.30 4021583 0 % PT T APTT - 12/12/16 [...] lab CBC WITH AUTO DIFFERENTIAL - 12/20/16 14 :16 BASOPHILS RELATIVE PERCENT 0.8 % 0.0 -2.5 EOSINOPHILS RELATIVE PERCENT 4.2 % < =5.0 HEMATOCRIT 41.9 % 34.9-44.5 HEMOGLOBIN 13.7 g/dL 12.0-15.5 LYMPHOCYTES RELATIVE PERCENT 39.5 % 2 2.0-49.0 MEAN CORPUSCULAR HEMOGLOBIN 30.6 pg 26 .0-34.0 MEAN CORPUSCULAR HEMOGLOBIN CONC 32.7 g/dL 31.0-37.0 MEAN CORPUSCULAR VOLUME 93.7 fL 81.6-9 8.3 MONOCYTES RELATIVE PERCENT 8.9 % 2.0 -9.0 NEUTROPHILS RELATIVE PERCENT 46.6 % 4 0.0-75.0 NUCLEATED RED BLOOD CELLS 0 /100 <=0 PLATELET COUNT 331 10E9/L 150-450 RED BLOOD CELL COUNT 4.47 10E12/L 3.90-5 .03 RED CELL DISTRIBUTION WIDTH 14.7 % 11 .9-15.5 7258604 8.8 10E9/L 3.5-10.5 7865588 3.46 10E9/L 0.90-2.90 2580589 0.78 10E9/L 0.30-0.90 8574584 0.37 10E9/L 0.05-0.50 6866316 4.09 10E9/L 1.70-7.00 4702674 0.07 10E9/L 0.00-0.30 5037281 0 % IRON SATURATION - 12/20/16 14:16 IRON SATURATION 12 % 15-50 HEMOGLOBIN A1C - 12/20/16 14:16 HEMOGLOBIN A1C 6.8 % <5.7 CBC WITH AUTO DIFFERENTIAL - 02/05/17 20 :11 BASOPHILS RELATIVE PERCENT 0.2 % 0.0 -2.5 EOSINOPHILS RELATIVE PERCENT 2.0 % < =5.0 HEMATOCRIT 41.1 % 34.9-44.5 HEMOGLOBIN 13.6 g/dL 12.0-15.5 LYMPHOCYTES RELATIVE PERCENT 30.6 % 2 2.0-49.0 MEAN CORPUSCULAR HEMOGLOBIN 30.2 pg 26 .0-34.0 MEAN CORPUSCULAR HEMOGLOBIN CONC 33.1 g/dL 31.0-37.0 MEAN CORPUSCULAR VOLUME 91.3 fL 81.6-9 8.3 MONOCYTES RELATIVE PERCENT 7.5 % 2.0 -9.0 NEUTROPHILS RELATIVE PERCENT 59.7 % 4 0.0-75.0 NUCLEATED RED BLOOD CELLS 0 /100 <=0 PLATELET COUNT 354 10E9/L 150-450 RED BLOOD CELL COUNT 4.50 10E12/L 3.90-5 .03 RED CELL DISTRIBUTION WIDTH 14.1 % 11 .9-15.5 8494736 8.5 10E9/L 3.5-10.5 1483258 2.60 10E9/L 0.90-2.90 8627905 0.64 10E9/L 0.30-0.90 8231837 0.17 10E9/L 0.05-0.50 8397060 5.06 10E9/L 1.70-7.00 8636246 0.02 10E9/L 0.00-0.30 9756308 0 % COMPREHENSIVE METABOLIC PANEL - 02/05/17 [...] % <5.7 B-TYPE NATRIURETIC PEPTIDE - 04/06/17 15 :46 B-TYPE NATRIURETIC PEPTIDE 20 pg/mL <=1 00 VITAMIN D2/D3 TOTAL - 04/06/17 15:46 VITAMIN D2/D3 TOTAL 28 ng/ml 30-100 TSH - 05/15/17 15:30 TSH 4.07 mIU/L NRG CMP - 08/01/17 19:17 GLUCOSE 117 mg/dL 65-99 UREA NITROGEN (BUN) 9 mg/dL 7-25 CREATININE 0.74 mg/dL 0.50-1.10 eGFR NON-AFR. KITT[place]IAN 98 mL/min/1.73m2 > OR = 60 eGFR 113 mL/min/1.73m2 > OR = 60 BUN/CREATININE RATIO NOT APPLICABLE (calc) 6-22 SODIUM 138 mmol/L 135-146 POTASSIUM 3.9 mmol/L 3.5-5.3 CHLORIDE 103 mmol/L 98-110 CARBON DIOXIDE 26 mmol/L 20-31 CALCIUM 9.2 mg/dL 8.6-10.2 PROTEIN, TOTAL 7.3 g/dL 6.1-8.1 ALBUMIN 4.2 g/dL 3.6-5.1 GLOBULIN 3.1 g/dL (calc) 1.9-3.7 ALBUMIN/GLOBULIN RATIO 1.4 (calc) 1.0-2. 5 BILIRUBIN, TOTAL 0.5 mg/dL 0.2-1.2 ALKALINE PHOSPHATASE 102 U/L 33-115 AST 21 U/L 10-35 ALT 15 U/L 6-29 Glucose NPT - 08/16/17 07:39 Glucose NPT 152 mg/dL 70-100 Screen, Urine NPT - 08/16/17 0 8:42 Screen, Urine NPT Negative NA CBC - 01/29/18 11:31 WHITE BLOOD CELL COUNT 8.9 Thousand/uL 3 .8-10.8 RED BLOOD CELL COUNT 4.42 Million/uL 3.8 0-5.10 HEMOGLOBIN 13.7 g/dL 11.7-15.5 HEMATOCRIT 41.1 % 35.0-45.0 MCV 93.0 fL 80.0-100.0 MCH 31.0 pg 27.0-33.0 MCHC 33.3 g/dL 32.0-36.0 RDW 14.6 % 11.0-15.0 PLATELET COUNT 405 Thousand/uL 140-400 MPV 9.2 fL 7.5-12.5 ABSOLUTE NEUTROPHILS 3809 cells/uL 1500- 7800 ABSOLUTE LYMPHOCYTES 4050 cells/uL 850-3 900 ABSOLUTE MONOCYTES 659 cells/uL 200-950 ABSOLUTE EOSINOPHILS [...] Negative Urine-Blood Negative Negative Urine-Color Yellow Colorless-[place] Urine-Epithelial Cells 0-5/HPF Urine-Glucose 2+ Negative Urine-Ketones Negative Negative Urine-Leukocytes Negative Negative Urine-Nitrite Negative Negative Urine-Other Urine Saved if Culture Need ed (48hrs from time of collection) Urine-pH 6.5 5-8.5 Urine-Protein Negative Negative Urine-RBC Negative Urine-Specific [place] 1.010 1.000-1 .030 Urine-WBC Rare/HPF Urobilinogen 0.2 0.2-1.0 Blood Culture - 02/19/18 16:40 PRELIM CULTURE RESULTS Blood Culture Negativ e, No Growth Day 1 FINAL CULTURE RESULTS Blood Culture Negative , No Growth Day 5 MEDIA PLATED Blood Culture Media Position [id number] CULTURE SOURCE Arterial stick Blood Culture - 02/19/18 16:40 PRELIM CULTURE RESULTS Blood Culture Negativ e, No Growth Day 1 FINAL CULTURE RESULTS Blood Culture Negative , No Growth Day 5 MEDIA PLATED Blood Culture Media Position [id number] CULTURE SOURCE AC Lactic Acid - 02/19/18 19:28 Lactic Acid 19.6 mg/dL 4.5-19.8 TSH - 03/27/18 13:15 TSH 2.87 mIU/L NRG Arterial blood gas measurement - 8 15:50 Blood pCO2 39 mm[Hg] 35-45 Blood pO2 88 mm[Hg] 79-93 Arterial blood bicarbonate measurement (moles/volume) 28 mmol/L 23-27 Arterial blood base excess by calculation 3.8 mmol /L -2.5-2.5 Arterial blood oxygen saturation measurement 97 % 94-100 * Inhaled oxygen flow rate ROOM AIR NRG Arterial blood pH measurement with patient temperature correction 7.46 7.37-7.43 Arterial blood carbon dioxide, total measurement (mole s/volume) 28.7 mmol/L 21.0-31.0 Body site RIGHT RADIAL NRG Assessment of wrist artery patency prior to arterial p uncture POSITIVE NRG Setting of ventilation mode NO NR G Measurement of body temperature 98.4 NRG Capillary blood glucose measurement by g lucometer (mass/volume) - 07/25/18 15:53 Capillary blood glucose measurement by glucometer (mas s/volume) 102 mg/dL 70-110 Complete blood count (CBC) with automate d white blood cell (WBC) differential - 07/25/18 15:58 Blood leukocytes automated count (number/volume) 8.2 10*3/uL 4.3-11.0 Blood erythrocytes automated count (number/volume) 4.63 10*6/uL 4.35-5.85 Venous blood hemoglobin measurement (mass/volume) 12.8 g/dL 11.5-16.0 Blood hematocrit (volume fraction) 40 % 35-52 Automated erythrocyte mean corpuscular volume 86 [ foz_us] 80-99 Automated erythrocyte mean corpuscular h emoglobin (mass per erythrocyte) 28 pg 25-34 Automated erythrocyte mean corpuscular h emoglobin concentration measurement (mass/volume) 32 g/dL 32-36 Automated erythrocyte distribution width ratio 15. 8 % 10.0- 14.5 Automated blood platelet count (count/volume) 442 10*3/uL [...] 10*3 1.0-4.0 Blood monocytes automated count (number/volume) 0. 9 10*3 0.0-1.0 Automated eosinophil count 0.3 10*3/uL 0 .0-0.3 Automated blood basophil count (count/volume) 0.0 10*3/uL 0.0-0.1 PT panel in platelet poor plasma by coag ulation assay - 07/25/18 15:58 Prothrombin time (PT) in platelet poor plasma by coagu lation assay 13.1 s 12.2-14.7 INR in platelet poor plasma or blood by coagulation as say 1.0 0.8-1.4 Activated partial thromboplastin time (a PTT) in platelet poor plasma bycoagulation assay - 07/25/18 15:58 Activated partial thromboplastin time (a PTT) in platelet poor plasma bycoagulation assay 29 s 24-35 Comprehensive metabolic panel - 07/25/18 15:58 Serum or plasma sodium measurement (moles/volume) 141 mmol/L 135-145 Serum or plasma potassium measurement (moles/volume) 3.8 mmol/L 3.6-5.0 Serum or plasma chloride measurement (moles/volume) 102 mmol/L 98-107 Carbon dioxide 28 mmol/L 21-32 Serum or plasma anion gap determination (moles/volume) 11 mmol/L 5-14 Serum or plasma urea nitrogen measurement (mass/volume ) 11 mg/dL 7-18 Serum or plasma creatinine measurement (mass/volume) 0.77 mg/dL 0.60-1.30 Serum or plasma urea nitrogen/creatinine mass ratio 14 NRG Serum or plasma creatinine measurement w ith calculation of estimated glomerular filtration rate > NRG Serum or plasma glucose measurement (mass/volume) 99 mg/dL 70-105 Serum or plasma calcium measurement (mass/volume) 9.0 mg/dL 8.5-10.1 Serum or plasma total bilirubin measurement (mass/volu me) 0.4 mg/dL 0.1-1.0 Serum or plasma alkaline phosphatase michael surement (enzymatic activity/volume) 140 U/L 40-136 Serum or plasma aspartate aminotransfera se measurement (enzymatic activity/volume) 13 U/L 5-34 Serum or plasma alanine aminotransferase measurement (enzymatic activity/volume) 13 U/L 0-55 Serum or plasma protein measurement (mass/volume) 7.3 g/dL 6.4-8.2 Serum or plasma albumin measurement (mass/volume) 4.0 g/dL 3.2-4.5 CALCIUM CORRECTED 9.0 mg/dL 8.5-10.1 Serum or plasma troponin i.cardiac measu rement (mass/volume) - 07/25/18 15:58 Serum or plasma troponin i.cardiac measurement (mass/v olume) < ng/mL <0.028 THYROID STIMULATING HORMONE - 07/25/18 1 5:58 THYROID STIMULATING HORMONE 6.78 u[iU]/mL 0.35-4.94 [id number] - 07/25/18 15:58 [id number] 45.9 ug/mL 50.0-100.0 Complete urinalysis with reflex to cultu re - 07/25/18 16:03 Urine color determination YELLOW NRG Urine clarity determination SLIGHTLY CLOUDY NRG Urine pH measurement by test strip 6 5-9 Specific gravity of urine by test strip 1.025 1.016-1.022 Urine protein assay by test strip, semi-quantitative 1+ NEGATIVE Urine glucose detection by automated test strip NE GATIVE NEGATIVE Erythrocytes detection in urine sediment by light micr oscopy NEGATIVE NEGATIVE Urine ketones detection by automated test strip NE GATIVE NEGATIVE Urine nitrite detection by test strip POSITIVE NEGATIVE Urine total bilirubin detection by test strip NEGA TIVE NEGATIVE Urine urobilinogen measurement by automated test strip (mass/volume) NORMAL NORMAL Urine leukocyte esterase detection by dipstick 1+ NEGATIVE Automated urine sediment erythrocyte cou nt by microscopy (number/high power field) NONE NRG Automated urine sediment leukocyte count by microscopy (number/high power field) [HPF] NRG Bacteria detection in urine sediment by light microsco py MODERATE NRG Squamous epithelial cells detection in u rine sediment by light microscopy 0-2 NRG Crystals detection in urine sediment by light microsco py NONE NRG Casts detection in urine sediment by light microscopy NONE NRG Mucus detection in urine sediment by light microscopy NEGATIVE NRG Complete urinalysis with reflex to culture CULTURE PENDING NRG Bacterial urine culture - 07/25/18 16:03 Bacterial urine culture [id number] NRG COLONY COUNT >100,000/ML NRG FTX;REPORTABLE SUSCEPTIBILITY REPORTED 07-27-18, 12 06 [facility] Sensitivity Panel - 07/25/18 16:03 Gentamicin susceptibility test by minimum inhibitory c oncentration <= NRG Trimethoprim/sulfamethoxazole susceptibi lity test by minimum inhibitoryconcentration <= NRG Levofloxacin susceptibility test by minimum inhibitory concentration <= NRG Ampicillin susceptibility test by minimum inhibitory c oncentration <= NRG Cefazolin susceptibility test by minimum inhibitory co ncentration <= NRG Ceftriaxone susceptibility test by minimum inhibitory concentration <= NRG Ciprofloxacin susceptibility test by minimum inhibitor y concentration <= NRG Meropenem susceptibility test by minimum inhibitory co ncentration <= NRG Nitrofurantoin susceptibility test by ky nimum inhibitory concentration 32 NRG Amoxicillin and clavulanate potassium susc CAITLIN <= NRG Arterial blood gas measurement - 9 16:35 Blood pCO2 41 mm[Hg] 35-45 Blood pO2 62 mm[Hg] 79-93 Arterial blood bicarbonate measurement (moles/volume) 27 mmol/L 23-27 Arterial blood base excess by calculation 2.4 mmol /L -2.5-2.5 Arterial blood oxygen saturation measurement 93 % 94-100 * Inhaled oxygen flow rate ROOM AIR NRG Arterial blood pH measurement with patient temperature correction 7.42 7.37-7.43 Arterial blood carbon dioxide, total measurement (mole s/volume) 28.1 mmol/L 21.0-31.0 Body site RIGHT RADIAL NRG Assessment of wrist artery patency prior to arterial p uncture POSITIVE NRG Setting of ventilation mode NO NR G Measurement of body temperature 96.5 NRG Capillary blood glucose measurement by g lucometer (mass/volume) - 07/25/18 16:57 Capillary blood glucose measurement by glucometer (mas s/volume) 93 mg/dL 70-110 Arterial blood gas measurement - 9 05:29 Blood pCO2 43 mm[Hg] 35-45 Blood pO2 97 mm[Hg] 79-93 Arterial blood bicarbonate measurement (moles/volume) 27 mmol/L 23-27 Arterial blood base excess by calculation 2.7 mmol /L -2.5-2.5 Arterial blood oxygen saturation measurement 96 % 94-100 * Inhaled oxygen flow rate 2L NRG Arterial blood pH measurement with patient temperature correction 7.41 7.37-7.43 Arterial blood carbon dioxide, total measurement (mole s/volume) 28.6 mmol/L 21.0-31.0 Body site RT RADIAL NRG Assessment of wrist artery patency prior to arterial p uncture POSITIVE NRG Setting of ventilation mode YES NR G Measurement of body temperature 96.3 NRG Complete blood count (CBC) with automate d white blood cell (WBC) differential - 08/04/18 05:46 Blood leukocytes automated count (number/volume) 9.9 10*3/uL 4.3-11.0 Blood erythrocytes automated count (number/volume) 4.18 10*6/uL 4.35-5.85 Venous blood hemoglobin measurement (mass/volume) 11.8 g/dL 11.5-16.0 Blood hematocrit (volume fraction) 36 % 35-52 Automated erythrocyte mean corpuscular volume 87 [ foz_us] 80-99 Automated erythrocyte mean corpuscular h emoglobin (mass per erythrocyte) 28 pg 25-34 Automated erythrocyte mean corpuscular h emoglobin concentration measurement (mass/volume) 32 g/dL 32-36 Automated erythrocyte distribution width ratio 16. 2 % 10.0- 14.5 Automated blood platelet count (count/volume) 378 10*3/uL 130-400 Automated blood platelet mean volume measurement 8.9 [foz_us] 7.4-10.4 Automated blood neutrophils/100 leukocytes 58 % 42-75 Automated blood lymphocytes/100 leukocytes 29 % 12-44 Blood monocytes/100 leukocytes 10 % 0-12 Automated blood eosinophils/100 leukocytes 3 % 0-10 Automated blood basophils/100 leukocytes 0 % 0-10 Blood neutrophils automated count (number/volume) 5.7 10*3 1.8-7.8 Blood lymphocytes automated count (number/volume) 2.9 10*3 1.0-4.0 Blood monocytes automated count (number/volume) 1. 0 10*3 0.0-1.0 Automated eosinophil count 0.3 10*3/uL 0 .0-0.3 Automated blood basophil count (count/volume) 0.0 10*3/uL 0.0-0.1 Serum or plasma choriogonadotropin (preg marysol test) detection - 08/04/18 05:46 Serum or plasma choriogonadotropin ( test) de tection NEGATIVE NEGATIVE Comprehensive metabolic panel - 08/04/18 05:46 Serum or plasma sodium measurement (moles/volume) 138 mmol/L 135-145 Serum or plasma potassium measurement (moles/volume) 4.6 mmol/L 3.6-5.0 Serum or plasma chloride measurement (moles/volume) 102 mmol/L 98-107 Carbon dioxide 22 mmol/L 21-32 Serum or plasma anion gap determination (moles/volume) 14 mmol/L 5-14 Serum or plasma urea nitrogen measurement (mass/volume ) 14 mg/dL 7-18 Serum or plasma creatinine measurement (mass/volume) 0.74 mg/dL 0.60-1.30 Serum or plasma urea nitrogen/creatinine mass ratio 19 NRG Serum or plasma creatinine measurement w ith calculation of estimated glomerular filtration rate > NRG Serum or plasma glucose measurement (mass/volume) 165 mg/dL 70-105 Serum or plasma calcium measurement (mass/volume) 8.5 mg/dL 8.5-10.1 Serum or plasma total bilirubin measurement (mass/volu me) 0.3 mg/dL 0.1-1.0 Serum or plasma alkaline phosphatase michael surement (enzymatic activity/volume) 139 U/L 40-136 Serum or plasma aspartate aminotransfera se measurement (enzymatic activity/volume) 20 U/L 5-34 Serum or plasma alanine aminotransferase measurement (enzymatic activity/volume) 13 U/L 0-55 Serum or plasma protein measurement (mass/volume) 6.9 g/dL 6.4-8.2 Serum or plasma albumin measurement (mass/volume) 3.5 g/dL 3.2-4.5 CALCIUM CORRECTED 8.9 mg/dL 8.5-10.1 Magnesium - 08/04/18 05:46 Magnesium 2.6 mg/dL 1.8-2.4 Serum or plasma creatine kinase measurem ent (enzymatic activity/volume) - 08/04/18 05:46 Serum or plasma creatine kinase measurem ent (enzymatic activity/volume) 53 U/L 29-168 Serum or plasma lithium measurement (mol es/volume) - 08/04/18 05:46 BNP level 36.8 pg/mL <100.0 Blood lactic acid measurement (moles/vol ume) - 08/04/18 05:46 Blood lactic acid measurement (moles/volume) 2.01 mmol/L 0.50-2.00 PT panel in platelet poor plasma by coag ulation assay - 08/04/18 05:46 Prothrombin time (PT) in platelet poor plasma by coagu lation assay 11.8 s 12.2-14.7 INR in platelet poor plasma or blood by coagulation as say 0.9 0.8-1.4 Activated partial thromboplastin time (a PTT) in platelet poor plasma bycoagulation assay - 08/04/18 05:46 Activated partial thromboplastin time (a PTT) in platelet poor plasma bycoagulation assay 22 s 24-35 Serum or plasma creatine kinase MB measu rement (enzymatic activity/volume) - 08/04/18 05:46 Serum or plasma creatine kinase MB measu rement (enzymatic activity/volume) 0.6 ng/mL <6.6 Serum or plasma troponin i.cardiac measu rement (mass/volume) - 08/04/18 05:46 Serum or plasma troponin i.cardiac measurement (mass/v olume) < ng/mL <0.028 Myoglobin, serum - 08/04/18 05:46 Myoglobin, serum 80.6 ng/mL 10.0-92.0 [id number] - 08/04/18 05:46 [id number] 27.4 ug/mL 50.0-100.0 Bacterial blood culture - 08/04/18 05:46 Bacterial blood culture NG NRG Capillary blood glucose measurement by g lucometer (mass/volume) - 08/04/18 06:12 Capillary blood glucose measurement by glucometer (mas s/volume) 157 mg/dL 70-110 Influenza virus A and B antigen detectio n - 08/04/18 06:12 FLU RESULT NEGATIVE FOR INFLUENZA A AND B ANTIGENS BY IA NRG Serum or plasma lactate measurement (mol es/volume) - 08/04/18 07:11 Serum or plasma lactate measurement (moles/volume) 1.97 mmol/L 0.50-2.00 Bacterial blood culture - 08/04/18 07:11 Bacterial blood culture NG NRG Urine drug screening test - 08/04/18 08: 40 Urine phencyclidine detection by screening method NEGATIVE NEGATIVE Urine benzodiazepines detection by screening method NEGATIVE NEGATIVE Urine cocaine detection NEGATIVE NEGATI VE Urine amphetamines detection by screening method N EGATIVE NEGATIVE Urine methamphetamine detection by screening method NEGATIVE NEGATIVE Urine cannabinoids detection by screening method N EGATIVE NEGATIVE Urine opiates detection by screening method NEGATI VE NEGATIVE Urine barbiturates detection NEGATIVE N EGATIVE Screening urine tricyclic antidepressants detection NEGATIVE NEGATIVE Urine methadone detection by screening method NEGA TIVE NEGATIVE Urine oxycodone detection NEGATIVE NEGA TIVE Urine propoxyphene detection NEGATIVE N EGATIVE Complete urinalysis with reflex to cultu re - 08/04/18 08:40 Urine color determination YELLOW NRG Urine clarity determination CLEAR NR G Urine pH measurement by test strip 6 5-9 Specific gravity of urine by test strip 1.020 1.016-1.022 Urine protein assay by test strip, semi-quantitative NEGATIVE NEGATIVE Urine glucose detection by automated test strip NE GATIVE NEGATIVE Erythrocytes detection in urine sediment by light micr oscopy NEGATIVE NEGATIVE Urine ketones detection by automated test strip 1+ NEGATIVE Urine nitrite detection by test strip NEGATIVE NEGATIVE Urine total bilirubin detection by test strip NEGA TIVE NEGATIVE Urine urobilinogen measurement by automated test strip (mass/volume) NORMAL NORMAL Urine leukocyte esterase detection by dipstick NEG ATIVE NEGATIVE Automated urine sediment erythrocyte cou nt by microscopy (number/high power field) NONE NRG Automated urine sediment leukocyte count by microscopy (number/high power field) NONE NRG Bacteria detection in urine sediment by light microsco py NEGATIVE NRG Squamous epithelial cells detection in u rine sediment by light microscopy NONE NRG Crystals detection in urine sediment by light microsco py NONE NRG Casts detection in urine sediment by light microscopy NONE NRG Mucus detection in urine sediment by light microscopy NEGATIVE NRG Complete urinalysis with reflex to culture NO NRG Serum or plasma troponin i.cardiac measu rement (mass/volume) - 08/04/18 10:15 Serum or plasma troponin i.cardiac measurement (mass/v olume) < ng/mL <0.028 Capillary blood glucose measurement by g lucometer (mass/volume) - 08/04/18 10:32 Capillary blood glucose measurement by glucometer (mas s/volume) 300 mg/dL 70-110 Capillary blood glucose measurement by g lucometer (mass/volume) - 08/04/18 12:48 Capillary blood glucose measurement by glucometer (mas s/volume) 382 mg/dL 70-110 Serum or plasma troponin i.cardiac measu rement (mass/volume) - 08/04/18 16:26 Serum or plasma troponin i.cardiac measurement (mass/v olume) < ng/mL <0.028 Capillary blood glucose measurement by g lucometer (mass/volume) - 08/04/18 16:44 Capillary blood glucose measurement by glucometer (mas s/volume) 325 mg/dL 70-110 Capillary blood glucose measurement by g lucometer (mass/volume) - 08/04/18 21:47 Capillary blood glucose measurement by glucometer (mas s/volume) 356 mg/dL 70-110 Capillary blood glucose measurement by g lucometer (mass/volume) - 08/05/18 05:12 Capillary blood glucose measurement by glucometer (mas s/volume) 290 mg/dL 70-110 Complete blood count (CBC) with automate d white blood cell (WBC) differential - 08/05/18 05:50 Blood leukocytes automated count (number/volume) 11.8 10*3/uL 4.3-11.0 Blood erythrocytes automated count (number/volume) 4.28 10*6/uL 4.35-5.85 Venous blood hemoglobin measurement (mass/volume) 11.9 g/dL 11.5-16.0 Blood hematocrit (volume fraction) 37 % 35-52 Automated erythrocyte mean corpuscular volume 87 [ foz_us] 80-99 Automated erythrocyte mean corpuscular h emoglobin (mass per erythrocyte) 28 pg 25-34 Automated erythrocyte mean corpuscular h emoglobin concentration measurement (mass/volume) 32 g/dL 32-36 Automated erythrocyte distribution width ratio 16. 1 % 10.0- 14.5 Automated blood platelet count (count/volume) 386 10*3/uL 130-400 Automated blood platelet mean volume measurement 9.0 [foz_us] 7.4-10.4 Automated blood neutrophils/100 leukocytes 82 % 42-75 Automated blood lymphocytes/100 leukocytes 13 % 12-44 Blood monocytes/100 leukocytes 6 % 0-12 Automated blood eosinophils/100 leukocytes 0 % 0-10 Automated blood basophils/100 leukocytes 0 % 0-10 Blood neutrophils automated count (number/volume) 9.6 10*3 1.8-7.8 Blood lymphocytes automated count (number/volume) 1.5 10*3 1.0-4.0 Blood monocytes automated count (number/volume) 0. 7 10*3 0.0-1.0 Automated eosinophil count 0.0 10*3/uL 0 .0-0.3 Automated blood basophil count (count/volume) 0.0 10*3/uL 0.0-0.1 Comprehensive metabolic panel - 08/05/18 05:50 Serum or plasma sodium measurement (moles/volume) 137 mmol/L 135-145 Serum or plasma potassium measurement (moles/volume) 4.4 mmol/L 3.6-5.0 Serum or plasma chloride measurement (moles/volume) 100 mmol/L 98-107 Carbon dioxide 25 mmol/L 21-32 Serum or plasma anion gap determination (moles/volume) 12 mmol/L 5-14 Serum or plasma urea nitrogen measurement (mass/volume ) 18 mg/dL 7-18 Serum or plasma creatinine measurement (mass/volume) 0.76 mg/dL 0.60-1.30 Serum or plasma urea nitrogen/creatinine mass ratio 24 NRG Serum or plasma creatinine measurement w ith calculation of estimated glomerular filtration rate > NRG Serum or plasma glucose measurement (mass/volume) 309 mg/dL 70-105 Serum or plasma calcium measurement (mass/volume) 8.6 mg/dL 8.5-10.1 Serum or plasma total bilirubin measurement (mass/volu me) 0.4 mg/dL 0.1-1.0 Serum or plasma alkaline phosphatase michael surement (enzymatic activity/volume) 116 U/L 40-136 Serum or plasma aspartate aminotransfera se measurement (enzymatic activity/volume) 11 U/L 5-34 Serum or plasma alanine aminotransferase measurement (enzymatic activity/volume) 12 U/L 0-55 Serum or plasma protein measurement (mass/volume) 6.7 g/dL 6.4-8.2 Serum or plasma albumin measurement (mass/volume) 3.6 g/dL 3.2-4.5 CALCIUM CORRECTED 8.9 mg/dL 8.5-10.1 Capillary blood glucose measurement by g lucometer (mass/volume) - 08/05/18 13:07 Capillary blood glucose measurement by glucometer (mas s/volume) 419 mg/dL 70-110 Capillary blood glucose measurement by g lucometer (mass/volume) - 08/05/18 15:28 Capillary blood glucose measurement by glucometer (mas s/volume) 354 mg/dL 70-110 Capillary blood glucose measurement by g lucometer (mass/volume) - 08/05/18 20:10 Capillary blood glucose measurement by glucometer (mas s/volume) 203 mg/dL 70-110 BNP - 08/08/18 00:55 BNP 22.50 pg/ml 0.00-100.00 Arterial blood gas measurement - 9 12:14 Blood pCO2 41 mm[Hg] 35-45 Blood pO2 73 mm[Hg] 79-93 Arterial blood bicarbonate measurement (moles/volume) 27 mmol/L 23-27 Arterial blood base excess by calculation 3.1 mmol /L -2.5-2.5 Arterial blood oxygen saturation measurement 93 % 94-100 * Inhaled oxygen flow rate ROOM AIR NRG Arterial blood pH measurement with patient temperature correction 7.43 7.37-7.43 Arterial blood carbon dioxide, total measurement (mole s/volume) 28.3 mmol/L 21.0-31.0 Body site RT RAD NRG Assessment of wrist artery patency prior to arterial p uncture YES-POS NRG Setting of ventilation mode NO NR G Measurement of body temperature 98.9 NRG CBC WITH AUTO DIFFERENTIAL - 12/19/18 16 :03 HEMATOCRIT 42.3 % 37.0-47.0 HEMOGLOBIN 13.5 g/dL 12.0-16.0 PLATELET COUNT 378 K/uL 150-400 WBC 7.40 K/uL 4.00-10.80 RBC 4.96 M/uL 4.20-5.40 MCV 85 fL 81-99 MCH 27.2 pg 26.0-34.0 MCHC 31.9 g/dL 31.0-37.0 RDW-SD 50.7 fL 36.4-46.3 RDW-CV 16.2 % 11.5-14.5 MPV 9.5 fL 9.4-12.3 NUCLEATED RBC [facility] 0.0 /100 WBC 0.0 NEUTROPHILS 52.2 % 36.0-66.0 LYMPHOCYTES 36.1 % 24.0-44.0 MONOCYTES 8.0 % 1.0-10.0 EOSINOPHILS 2.8 % 0.0-6.0 BASOPHILS 0.5 % 0.0-2.0 IMMATURE GRANULOCYTES 0.4 % 0.0-0.5 NEUTROPHILS # 3.86 K/uL 1.55-7.13 LYMPHOCYTES # 2.67 K/uL 1.00-4.80 MONOCYTES # 0.59 K/uL 0.40-1.08 EOSINOPHILS # 0.21 K/uL 0.00-0.65 BASOPHILS # 0.04 K/uL 0.00-0.11 IMMATURE GRANULOCYTES ABS 0.03 K/uL 0.0 0-0.10 NRBC ABS 0.00 K/uL 0.00 BASIC METABOLIC PANEL - 12/19/18 16:03 CALCIUM 8.5 mg/dL 8.5-10.0 CO2 26 mmol/L 21-32 CHLORIDE 99 mmol/L 98-107 CREATININE 0.74 mg/dL 0.55-1.30 ESTIMATED GLOMERULAR FILTRATION RATE 90 mL/min/1.7 3m2 >=60 GLUCOSE 335 mg/dL 70-115 BUN 6 mg/dL 8-26 POTASSIUM 3.5 mmol/L 3.5-5.1 SODIUM 134 mmol/L 136-145 ANION GAP 9 mmol/L 5-15 TROPONIN I - 12/19/18 16:03 TROPONIN, 4TH GENERATION < ng/mL <0.04 6 POCT GLUCOSE - 12/19/18 17:59 POC GLUCOSE 254 mg/dL 70-115 PERFORM POINT OF CARE GLUCOSE - 12/29/18 13:22 BEDSIDE GLUCOSE > mg/dL 74-106 URINALYSIS, REFLEX CULTURE IF NEEDED - 0 12/29/18 13:49 APPEARANCE Clear BILIRUBIN UA Negative Negative COLOR Yellow GLUCOSE UA 3+ Negative HEMOGLOBIN UA Negative Negative LEUKOCYTE ESTERASE UA Negative Negative NITRATE UA Negative Negative PH UA 5.0 5.0-8.0 PROTEIN UA Negative Negative RBC UA 0-3 /hpf 0-3 SPECIFIC GRAVITY UA 1.034 1.003-1.03 0 SQUAMOUS EPITHELIAL Rare /hpf UROBILINOGEN UA 0.2 EU/dL 0.2 WBC UA 0-3 /hpf 0-3 [id number] Negative Negative TROPONIN I - 12/29/18 13:59 TROPONIN I < ng/mL 0.000-0.040 OSMOLALITY - 12/29/18 14:07 OSMOLALITY-SERUM 302 mOs/kg 270-300 CBC WITH AUTO DIFFERENTIAL - 12/29/18 14 :07 BASOPHILS RELATIVE PERCENT 0.9 % 0.0 -2.5 EOSINOPHILS RELATIVE PERCENT 2.1 % < =5.0 HEMOGLOBIN 14.5 g/dL 12.0-15.5 LYMPHOCYTES RELATIVE PERCENT 29.8 % 2 2.0-49.0 MEAN CORPUSCULAR HEMOGLOBIN 27.8 pg 26 .0-34.0 MEAN CORPUSCULAR HEMOGLOBIN CONC 33.4 g/dL 31.0-37.0 MEAN CORPUSCULAR VOLUME 83.3 fL 81.6-9 8.3 MONOCYTES RELATIVE PERCENT 7.4 % 2.0 -9.0 NEUTROPHILS RELATIVE PERCENT 59.8 % 4 0.0-75.0 NUCLEATED RED BLOOD CELLS 0 10E9/L <=0 PLATELET COUNT 322 10E9/L 150-450 RED BLOOD CELL COUNT 5.21 10E12/L 3.90-5 .03 RED CELL DISTRIBUTION WIDTH 15.8 % 11 .9-15.5 [id number] 8.0 10E9/L 3.5-10.5 [id number] 2.39 10E9/L 0.90-2.90 [id number] 0.59 10E9/L 0.30-0.90 [id number] 0.17 10E9/L 0.05-0.50 [id number] 4.79 10E9/L 1.70-7.00 [id number] 0.07 10E9/L 0.00-0.30 [id number] 0 % SCAN - 12/29/18 14:07 ANISOCYTOSIS 1+ POLYCHROMASIA 1+ [id number] Rare [id number] Results confirmed by microscopic exam BLOOD GAS, VENOUS - 12/29/18 14:32 BASE EXCESS VENOUS 0 mmol/L -3-3 HCO3 VENOUS 25 meq/L 23-27 O2 SATURATION VENOUS 92 % 60-85 PCO2 VENOUS 42 mm Hg 40-50 PH VENOUS 7.38 7.32-7.42 PERFORM POINT OF CARE GLUCOSE - 12/29/18 15:53 BEDSIDE GLUCOSE 428 mg/dL 74-106 CBC WITH AUTO DIFFERENTIAL - 01/07/19 17 :44 HEMATOCRIT 44.9 % 37.0-47.0 HEMOGLOBIN 14.7 g/dL 12.0-16.0 PLATELET COUNT 340 K/uL 150-400 WBC 9.10 K/uL 4.00-10.80 RBC 5.29 M/uL 4.20-5.40 MCV 85 fL 81-99 MCH 27.8 pg 26.0-34.0 MCHC 32.7 g/dL 31.0-37.0 RDW-SD 50.8 fL 36.4-46.3 RDW-CV 16.2 % 11.5-14.5 MPV 9.4 fL 9.4-12.3 NUCLEATED RBC [facility] 0.0 /100 WBC 0.0 NEUTROPHILS 49.7 % 36.0-66.0 LYMPHOCYTES 38.2 % 24.0-44.0 MONOCYTES 9.0 % 1.0-10.0 EOSINOPHILS 2.0 % 0.0-6.0 BASOPHILS 0.7 % 0.0-2.0 IMMATURE GRANULOCYTES 0.4 % 0.0-0.5 NEUTROPHILS # 4.52 K/uL 1.55-7.13 LYMPHOCYTES # 3.48 K/uL 1.00-4.80 MONOCYTES # 0.82 K/uL 0.40-1.08 EOSINOPHILS # 0.18 K/uL 0.00-0.65 BASOPHILS # 0.06 K/uL 0.00-0.11 IMMATURE GRANULOCYTES ABS 0.04 K/uL 0.0 0-0.10 NRBC ABS 0.00 K/uL 0.00 TROPONIN I - 01/07/19 17:44 TROPONIN, 4TH GENERATION < ng/mL <0.04 6 POCT GLUCOSE - 05/05/19 15:15 POC GLUCOSE 214 mg/dL 70-115 PERFORM POINT OF CARE GLUCOSE - 06/05/19 14:31 BEDSIDE GLUCOSE 444 mg/dL 74-106 CBC WITH AUTO DIFFERENTIAL - 06/05/19 14 :35 BASOPHILS RELATIVE PERCENT 0.5 % 0.0 -2.5 EOSINOPHILS RELATIVE PERCENT 2.4 % < =5.0 HEMATOCRIT 44.5 % 34.9-44.5 HEMOGLOBIN 14.3 g/dL 12.0-15.5 LYMPHOCYTES RELATIVE PERCENT 36.9 % 2 2.0-49.0 MEAN CORPUSCULAR HEMOGLOBIN 29.1 pg 26 .0-34.0 MEAN CORPUSCULAR HEMOGLOBIN CONC 32.1 g/dL 31.0-37.0 MEAN CORPUSCULAR VOLUME 90.4 fL 81.6-9 8.3 MONOCYTES RELATIVE PERCENT 6.5 % 2.0 -9.0 NEUTROPHILS RELATIVE PERCENT 53.7 % 4 0.0-75.0 NUCLEATED RED BLOOD CELLS 0.00 10E9/L <= 0.00 PLATELET COUNT 366 10E9/L 150-450 RED BLOOD CELL COUNT 4.92 10E12/L 3.90-5 .03 RED CELL DISTRIBUTION WIDTH 15.1 % 11 .9-15.5 [id number] 8.3 10E9/L 3.5-10.5 [id number] 3.07 10E9/L 0.90-2.90 6848086 0.54 10E9/L 0.30-0.90 2541826 0.20 10E9/L 0.05-0.50 [id number] 4.47 10E9/L 1.70-7.00 0470047 0.04 10E9/L 0.00-0.30 [id number] 0 % BETA-HYDROXYBUTYRATE, SERUM - 06/05/19 1 4:35 [id number] 1.1 mg/dL <2.8 URINALYSIS, REFLEX CULTURE IF NEEDED - 1 08/06/18 14:35 APPEARANCE Clear BILIRUBIN UA Negative Negative BUDDING YEAST Occasional CALCIUM OXYLATE CRYST Rare COLOR Yellow GLUCOSE UA 3+ Negative HEMOGLOBIN UA Negative Negative LEUKOCYTE ESTERASE UA Negative Negative NITRATE UA Negative Negative PH UA 5.0 5.0-8.0 PROTEIN UA Negative Negative RBC UA 0-3 /hpf 0-3 SPECIFIC GRAVITY UA 1.030 1.003-1.03 0 SQUAMOUS EPITHELIAL Rare /hpf UROBILINOGEN UA 0.2 EU/dL 0.2 WBC UA 0-3 /hpf 0-3 [id number] Negative Negative [id number] 2 /lpf BLOOD GAS, VENOUS - 06/05/19 14:38 BASE EXCESS VENOUS -1 mmol/L -3-3 HCO3 VENOUS 24 meq/L 23-27 O2 SATURATION VENOUS 78 % 60-85 PCO2 VENOUS 43 mm Hg 40-50 PH VENOUS 7.36 7.32-7.42 PERFORM POINT OF CARE GLUCOSE - 06/05/19 17:18 BEDSIDE GLUCOSE 319 mg/dL 74-106 PERFORM POINT OF CARE GLUCOSE - 06/17/19 14:00 BEDSIDE GLUCOSE 246 mg/dL 74-106 BLOOD GAS, VENOUS - 06/17/19 14:24 BASE EXCESS VENOUS 3 mmol/L -3-3 HCO3 VENOUS 30 meq/L 23-27 O2 SATURATION VENOUS 57 % 60-85 PCO2 VENOUS 54 mm Hg 40-50 PH VENOUS 7.35 7.32-7.42 B-TYPE NATRIURETIC PEPTIDE - 06/17/19 14 :39 B-TYPE NATRIURETIC PEPTIDE 19 pg/mL <=1 00 COMPREHENSIVE METABOLIC PANEL - 06/17/19 14:39 ALBUMIN 4.0 g/dL 3.4-4.8 ALKALINE PHOSPHATASE 148 U/L 29-122 ALT 36 U/L 10-46 ANION GAP 9 AST 44 U/L 16-37 BILIRUBIN,TOTAL 0.3 mg/dL 0.0-1.2 BUN BLOOD 11 mg/dL 6-20 CALCIUM 8.0 mg/dL 8.3-10.6 CHLORIDE 99 mmol/L 99-111 CO2 27 mmol/L 20-36 CREATININE 0.56 mg/dL 0.40-1.10 EGFR > mL/min >59 GLUCOSE 304 mg/dL 74-106 POTASSIUM 3.9 mmol/L 3.6-4.9 PROTEIN TOTAL 6.0 g/dL 5.7-8.2 SODIUM 135 mmol/L 136-145 BLOOD CULTURE - 06/17/19 14:39 [id number] No Growth after 5 days incubation RESPIRATORY PANEL PCR - 06/17/19 16:12 INFLUENZA A PCR Negative Negative [id number] Negative Negative [id number] Negative Negative [id number] Negative Negative [id number] Negative Negative [id number] Positive Negative [id number] Negative Negative [id number] Negative Negative 8800889 Negative Negative [id number] Negative Negative [id number] Negative Negative 0308946 Negative Negative [id number] Negative Negative [id number] Negative Negative [id number] Negative Negative [id number] Negative Negative [id number] Negative Negative BORDETELLA PARAPERTUSSIS Negative Negat lilia BLOOD CULTURE - 06/17/19 16:29 [id number] No Growth after 5 days incubation PERFORM POINT OF CARE GLUCOSE - 06/17/19 21:41 BEDSIDE GLUCOSE 405 mg/dL 74-106 HEMOGLOBIN A1C - 06/17/19 21:59 HEMOGLOBIN A1C 11.9 % <5.7 LACTIC ACID, PLASMA - 06/17/19 21:59 LACTIC ACID 7.32 mmol/L 0.70-2.00 URINALYSIS, REFLEX CULTURE IF NEEDED - 1 08/19/18 00:16 APPEARANCE Clear BILIRUBIN UA Negative Negative COLOR Yellow GLUCOSE UA 3+ Negative HEMOGLOBIN UA Negative Negative LEUKOCYTE ESTERASE UA Negative Negative NITRATE UA Negative Negative PH UA 5.0 5.0-8.0 PROTEIN UA Negative Negative RBC UA 0-3 /hpf 0-3 SPECIFIC GRAVITY UA 1.029 1.003-1.03 0 SQUAMOUS EPITHELIAL None Seen /hpf UROBILINOGEN UA 0.2 EU/dL 0.2 WBC UA 0-3 /hpf 0-3 [id number] 1+ Negative PERFORM POINT OF CARE GLUCOSE - 06/18/19 01:52 BEDSIDE GLUCOSE 337 mg/dL 74-106 CBC WITH AUTO DIFFERENTIAL - 06/18/19 05 :59 HEMATOCRIT 43.1 % 34.9-44.5 HEMOGLOBIN 13.5 g/dL 12.0-15.5 MEAN CORPUSCULAR HEMOGLOBIN 28.8 pg 26 .0-34.0 MEAN CORPUSCULAR HEMOGLOBIN CONC 31.3 g/dL 31.0-37.0 MEAN CORPUSCULAR VOLUME 91.9 fL 81.6-9 8.3 NUCLEATED RED BLOOD CELLS 0.00 10E9/L <= 0.00 PLATELET COUNT 306 10E9/L 150-450 RED BLOOD CELL COUNT 4.69 10E12/L 3.90-5 .03 RED CELL DISTRIBUTION WIDTH 15.0 % 11 .9-15.5 [id number] 4.6 10E9/L 3.5-10.5 4839635 0 % SCAN - 06/18/19 05:59 ANISOCYTOSIS 1+ [id number] Results confirmed by microscopic exam MANUAL WBC DIFFERENTIAL - 06/18/19 05:59 BANDS - REL (DIFF) 6 % 2-6 BASOPHILS - ABS (DIFF) 0.0 10E9/L 0.0-0. 3 BASOPHILS - REL (DIFF) 0 % 0-2 EOSINOPHILS - ABS (DIFF) 0.0 10E9/L 0.1- 0.5 EOSINOPHILS - REL (DIFF) 0 % 0-5 LYMPHOCYTES - ABS (DIFF) 0.3 10E9/L 0.9- 2.9 LYMPHOCYTES - REL (DIFF) 6 % 20-44 MONOCYTES - ABS (DIFF) 0.1 10E9/L 0.3-0. 9 MONOCYTES - REL (DIFF) 3 % 0-8 SEGMENTED NEUTROPHILS-REL(DIFF) 85 % 40-70 [id number] 4.2 10E9/L 1.7-7.0 BASIC METABOLIC PANEL - 06/18/19 06:00 ANION GAP 10 BUN BLOOD 10 mg/dL 6-20 CALCIUM 9.0 mg/dL 8.3-10.6 CHLORIDE 100 mmol/L 99-111 CO2 28 mmol/L 20-36 CREATININE 0.69 mg/dL 0.40-1.10 EGFR > mL/min >59 GLUCOSE 305 mg/dL 74-106 POTASSIUM 4.2 mmol/L 3.6-4.9 SODIUM 138 mmol/L 136-145 PERFORM POINT OF CARE GLUCOSE - 06/18/19 07:45 BEDSIDE GLUCOSE 244 mg/dL 74-106 PERFORM POINT OF CARE GLUCOSE - 06/18/19 09:54 BEDSIDE GLUCOSE 257 mg/dL 74-106 PERFORM POINT OF CARE GLUCOSE - 06/18/19 12:32 BEDSIDE GLUCOSE 272 mg/dL 74-106 PERFORM POINT OF CARE GLUCOSE - 06/18/19 17:18 BEDSIDE GLUCOSE 147 mg/dL 74-106 LACTIC ACID, PLASMA - 06/18/19 19:10 LACTIC ACID 3.12 mmol/L 0.70-2.00 PERFORM POINT OF CARE GLUCOSE - 06/18/19 21:04 BEDSIDE GLUCOSE 257 mg/dL 74-106 VALPROIC ACID LEVEL, TOTAL - 06/18/19 21 :28 VALPROIC ACID(DEPAKENE) 83 ug/mL 50-100 CBC WITH AUTO DIFFERENTIAL - 06/19/19 07 :08 BASOPHILS RELATIVE PERCENT 0.3 % 0.0 -2.5 EOSINOPHILS RELATIVE PERCENT 0.0 % < =5.0 HEMATOCRIT 43.8 % 34.9-44.5 HEMOGLOBIN 13.8 g/dL 12.0-15.5 LYMPHOCYTES RELATIVE PERCENT 10.2 % 2 2.0-49.0 MEAN CORPUSCULAR HEMOGLOBIN 29.2 pg 26 .0-34.0 MEAN CORPUSCULAR HEMOGLOBIN CONC 31.5 g/dL 31.0-37.0 MEAN CORPUSCULAR VOLUME 92.6 fL 81.6-9 8.3 MONOCYTES RELATIVE PERCENT 4.7 % 2.0 -9.0 NEUTROPHILS RELATIVE PERCENT 84.8 % 4 0.0-75.0 NUCLEATED RED BLOOD CELLS 0.00 10E9/L <= 0.00 PLATELET COUNT 307 10E9/L 150-450 RED BLOOD CELL COUNT 4.73 10E12/L 3.90-5 .03 RED CELL DISTRIBUTION WIDTH 15.2 % 11 .9-15.5 2076041 7.1 10E9/L 3.5-10.5 4408376 0.72 10E9/L 0.90-2.90 1886470 0.33 10E9/L 0.30-0.90 5011379 0.00 10E9/L 0.05-0.50 5518338 5.99 10E9/L 1.70-7.00 9402833 0.02 10E9/L 0.00-0.30 8280734 0 % BASIC METABOLIC PANEL - 06/19/19 07:08 ANION GAP 9 BUN BLOOD 13 mg/dL 6-20 CALCIUM 8.2 mg/dL 8.3-10.6 CHLORIDE 98 mmol/L 99-111 CO2 32 mmol/L 20-36 CREATININE 0.79 mg/dL 0.40-1.10 EGFR > mL/min >59 GLUCOSE 273 mg/dL 74-106 POTASSIUM 3.7 mmol/L 3.6-4.9 SODIUM 139 mmol/L 136-145 PERFORM POINT OF CARE GLUCOSE - 06/19/19 09:03 BEDSIDE GLUCOSE 272 mg/dL 74-106 PERFORM POINT OF CARE GLUCOSE - 06/19/19 11:49 BEDSIDE GLUCOSE 246 mg/dL 74-106 PERFORM POINT OF CARE GLUCOSE - 06/19/19 15:16 BEDSIDE GLUCOSE 127 mg/dL 74-106 PERFORM POINT OF CARE GLUCOSE - 06/19/19 18:30 BEDSIDE GLUCOSE 132 mg/dL 74-106 PERFORM POINT OF CARE GLUCOSE - 06/19/19 20:26 BEDSIDE GLUCOSE 186 mg/dL 74-106 PERFORM POINT OF CARE GLUCOSE - 06/19/19 21:57 BEDSIDE GLUCOSE 190 mg/dL 74-106 CBC WITH AUTO DIFFERENTIAL - 06/20/19 07 :07 BASOPHILS RELATIVE PERCENT 0.4 % 0.0 -2.5 EOSINOPHILS RELATIVE PERCENT 0.0 % < =5.0 HEMATOCRIT 41.2 % 34.9-44.5 HEMOGLOBIN 12.5 g/dL 12.0-15.5 LYMPHOCYTES RELATIVE PERCENT 21.8 % 2 2.0-49.0 MEAN CORPUSCULAR HEMOGLOBIN 29.1 pg 26 .0-34.0 MEAN CORPUSCULAR HEMOGLOBIN CONC 30.3 g/dL 31.0-37.0 MEAN CORPUSCULAR VOLUME 96.0 fL 81.6-9 8.3 MONOCYTES RELATIVE PERCENT 6.4 % 2.0 -9.0 NEUTROPHILS RELATIVE PERCENT 71.4 % 4 0.0-75.0 NUCLEATED RED BLOOD CELLS 0.00 10E9/L <= 0.00 PLATELET COUNT 260 10E9/L 150-450 RED BLOOD CELL COUNT 4.29 10E12/L 3.90-5 .03 RED CELL DISTRIBUTION WIDTH 15.4 % 11 .9-15.5 [id number] 5.2 10E9/L 3.5-10.5 5017867 1.13 10E9/L 0.90-2.90 0097522 0.33 10E9/L 0.30-0.90 8977528 0.00 10E9/L 0.05-0.50 4046204 3.71 10E9/L 1.70-7.00 5328755 0.02 10E9/L 0.00-0.30 5571345 0 % PROCALCITONIN - 06/20/19 07:07 PROCALCITONIN < ng/ml <=0.09 PERFORM POINT OF CARE GLUCOSE - 06/20/19 08:30 BEDSIDE GLUCOSE 118 mg/dL 74-106 PERFORM POINT OF CARE GLUCOSE - 06/20/19 12:07 BEDSIDE GLUCOSE 148 mg/dL 74-106 PERFORM POINT OF CARE GLUCOSE - 06/20/19 17:14 BEDSIDE GLUCOSE 127 mg/dL 74-106 PERFORM POINT OF CARE GLUCOSE - 06/20/19 19:58 BEDSIDE GLUCOSE 252 mg/dL 74-106 CBC WITH AUTO DIFFERENTIAL - 06/21/19 06 :41 BASOPHILS RELATIVE PERCENT 0.6 % 0.0 -2.5 EOSINOPHILS RELATIVE PERCENT 0.0 % < =5.0 HEMATOCRIT 40.6 % 34.9-44.5 HEMOGLOBIN 12.5 g/dL 12.0-15.5 LYMPHOCYTES RELATIVE PERCENT 42.9 % 2 2.0-49.0 MEAN CORPUSCULAR HEMOGLOBIN 28.9 pg 26 .0-34.0 MEAN CORPUSCULAR HEMOGLOBIN CONC 30.8 g/dL 31.0-37.0 MEAN CORPUSCULAR VOLUME 94.0 fL 81.6-9 8.3 MONOCYTES RELATIVE PERCENT 7.9 % 2.0 -9.0 NEUTROPHILS RELATIVE PERCENT 48.6 % 4 0.0-75.0 NUCLEATED RED BLOOD CELLS 0.00 10E9/L <= 0.00 PLATELET COUNT 244 10E9/L 150-450 RED BLOOD CELL COUNT 4.32 10E12/L 3.90-5 .03 RED CELL DISTRIBUTION WIDTH 15.1 % 11 .9-15.5 1181120 3.4 10E9/L 3.5-10.5 4344208 1.46 10E9/L 0.90-2.90 8805453 0.27 10E9/L 0.30-0.90 0974043 0.00 10E9/L 0.05-0.50 2758524 1.65 10E9/L 1.70-7.00 2520313 0.02 10E9/L 0.00-0.30 9175378 0 % SCAN - 06/21/19 06:41 ANISOCYTOSIS 1+ [id number] Results confirmed by microscopic exam BASIC METABOLIC PANEL - 06/21/19 06:41 ANION GAP < BUN BLOOD 9 mg/dL 6-20 CALCIUM 8.2 mg/dL 8.3-10.6 CHLORIDE 96 mmol/L 99-111 CO2 > mmol/L 20-36 CREATININE 0.58 mg/dL 0.40-1.10 EGFR > mL/min >59 GLUCOSE 178 mg/dL 74-106 POTASSIUM 3.5 mmol/L 3.6-4.9 SODIUM 142 mmol/L 136-145 PERFORM POINT OF CARE GLUCOSE - 06/21/19 08:02 BEDSIDE GLUCOSE 174 mg/dL 74-106 PERFORM POINT OF CARE GLUCOSE - 06/21/19 13:14 BEDSIDE GLUCOSE 254 mg/dL 74-106 PERFORM POINT OF CARE GLUCOSE - 06/21/19 17:24 BEDSIDE GLUCOSE 167 mg/dL 74-106 PERFORM POINT OF CARE GLUCOSE - 06/21/19 18:58 BEDSIDE GLUCOSE 166 mg/dL 74-106 PERFORM POINT OF CARE GLUCOSE - 06/21/19 21:01 BEDSIDE GLUCOSE 130 mg/dL 74-106 PERFORM POINT OF CARE GLUCOSE - 06/22/19 08:49 BEDSIDE GLUCOSE 124 mg/dL 74-106 CBC WITH AUTO DIFFERENTIAL - 06/22/19 09 :31 BASOPHILS RELATIVE PERCENT 0.9 % 0.0 -2.5 EOSINOPHILS RELATIVE PERCENT 0.0 % < =5.0 HEMATOCRIT 43.3 % 34.9-44.5 HEMOGLOBIN 13.3 g/dL 12.0-15.5 LYMPHOCYTES RELATIVE PERCENT 45.3 % 2 2.0-49.0 MEAN CORPUSCULAR HEMOGLOBIN 28.7 pg 26 .0-34.0 MEAN CORPUSCULAR HEMOGLOBIN CONC 30.7 g/dL 31.0-37.0 MEAN CORPUSCULAR VOLUME 93.3 fL 81.6-9 8.3 MONOCYTES RELATIVE PERCENT 9.1 % 2.0 -9.0 NEUTROPHILS RELATIVE PERCENT 44.7 % 4 0.0-75.0 NUCLEATED RED BLOOD CELLS 0.00 10E9/L <= 0.00 PLATELET COUNT 305 10E9/L 150-450 RED BLOOD CELL COUNT 4.64 10E12/L 3.90-5 .03 RED CELL DISTRIBUTION WIDTH 14.9 % 11 .9-15.5 7306667 5.8 10E9/L 3.5-10.5 0412693 2.63 10E9/L 0.90-2.90 0936889 0.53 10E9/L 0.30-0.90 4037682 0.00 10E9/L 0.05-0.50 4577436 2.59 10E9/L 1.70-7.00 2146312 0.05 10E9/L 0.00-0.30 3002339 0 % SCAN - 06/22/19 09:31 RBC MORPHOLOGY RBC morphology appears normal [id number] Results confirmed by microscopic exam BASIC METABOLIC PANEL - 06/22/19 09:31 ANION GAP < BUN BLOOD 17 mg/dL 6-20 CALCIUM 9.2 mg/dL 8.3-10.6 CHLORIDE 92 mmol/L 99-111 CO2 > mmol/L 20-36 CREATININE 0.62 mg/dL 0.40-1.10 EGFR > mL/min >59 GLUCOSE 112 mg/dL 74-106 POTASSIUM 3.7 mmol/L 3.6-4.9 SODIUM 140 mmol/L 136-145 MICROALBUMIN - 08/05/19 11:47 MICROALBUMIN URINE 8 mg/L 0-30 HEMOGLOBIN A1C - 08/05/19 11:50 HEMOGLOBIN A1C 9.7 % 4.5-6.2 T4, FREE - 08/05/19 11:50 FREE T4 1.05 ng/dL 0.76-1.46 Fingerstick Blood Sugar - 08/27/19 11:54 Fingerstick Blood Sugar > 600 mg/dL 70-9 9 Venous Blood Gas - 08/27/19 12:05 VBG PH 7.35 7.35-7.45 VBG PCO2 45.0 mmHg 38.0-50.0 VBG PO2 51.0 mmHg 30-43 VBG HCO3 24.8 mEq/L 22.0-29.0 VBG Total CO2 26.2 mEq/L 21-33 VBG Base Excess -1.2 mEq/L -2-2 VBG Oxygen Saturation 86.3 % 88-100 VBG Hemoglobin 16.4 g/dL 12.0-16.0 VBG Methemoglobin 1.3 % 0.4-1.5 COMPLETE BLOOD COUNT W/DIFF - 08/27/19 1 2:05 HEMOGLOBIN 15.4 g/dL 12.0-16.0 PLATELET COUNT 368 10 3 uL 130-400 WHITE BLOOD CELL COUNT 6.2 10 3/uL 4.5-1 1.0 NEUTROPHIL% 57.3 % 43.0-72.0 LYMPHOCYTE% 33.3 % 15.0-45.0 MONOCYT% 6.2 % 1.0-12.0 EOSINOPHIL% 2.4 % 0.0-6.0 BASOPHIL% 0.8 % 0.0-2.0 NEUTROPHIL# 3.6 10 3 uL 1.0-8.0 LYMPHOCYTE# 2.1 10 3 uL 1.0-3.0 MONOCYTE# 0.4 10 3 uL 0.0-1.0 EOSINOPHIL# 0.2 10 3 uL 0.0-0.4 BASOPHIL# 0.0 10 3 uL 0.0-0.2 HEMATOCRIT 47.0 % 36-48 MEAN CORPUSCULAR VOLUME 92.6 fL 79-99 MEAN CORPUSCULAR HEMOGLOBIN 30.4 pg 25 .0-34.0 MEAN CELL HEMOGLOBIN CONC. 32.8 g/dL 31. 0-36.0 RED CELL DISTRIBUTION WIDTH 15.0 % 11 .0-15.0 MEAN PLATELET VOLUME 8.2 fL 7.0-11.0 Red Blood Count 5.08 10 6/uL 3.50-5.40 HCG, Qualitative Serum - 08/27/19 12:05 HCG Qual Serum Negative Negative Comprehensive Metabolic Panel - 08/27/19 12:05 BILIRUBIN TOTAL 0.4 mg/dL 0.0-1.2 BUN 3 mg/dL 5-21 CHLORIDE 94 mmol/L 100-112 CARBON DIOXIDE 21 mEq/L 18-30 POTASSIUM 2.9 mmol/L 3.4-5.2 SODIUM 132 mmol/L 135-150 GFR ESTIMATE 52 mL/Min > 60 Anion Gap 17 mmol/L 8-11 Creatinine 1.13 mg/dL 0.60-1.30 Glucose 697 mg/dL 70-99 Calcium 9.2 mg/dL 8.6-10.5 Aspartate Amino Transferase 33 U/L 6- 37 Alanine Aminotransferase 38 U/L 12-78 Total Protein 7.7 g/dL 6.4-8.2 Albumin 3.6 g/dL 3.3-4.5 Albumin/Globulin Ratio 0.9 0.7-2.0 Alkaline Phosphatase 217 U/L 50-136 Phosphorous - 08/27/19 12:05 PHOSPHORUS 1.80 mg/dL 2.4-4.5 Magnesium - 08/27/19 12:05 Magnesium 1.9 mg/dL 1.6-2.6 Troponin I (x1) - 08/27/19 12:05 TROPONIN-I ONLY < 0.01 ng/mL 0.00-0.05 Ketone Body Qual, serum/plasma - 0 12:05 Ketone Body Qual, serum/plasma Negative Negative B-Type Natriuretic Peptide - 08/27/19 12 :05 B-Type Natriuretic Peptide < 10 pg/mL < 100 Hemoglobin A1C - 08/27/19 12:05 HEMOGLOBIN A1C 12.9 % < 6.5 Osmolality, Serum - 08/27/19 12:10 Osmolality, Serum 307 mOSM/kg 278-305 Influenza A&B Antigen,In-house - 0 12:15 INFLUENZA A&B ANTIGEN-IN HOUSE NR Influenza A: Presumptive Neg for the pres ence of Influenza A Antigen NRG Influenza B: Presumptive Neg for the pres ence of Influenza B Antigen NR Urinalysis w/microscopic - 08/27/19 12:2 4 URINE MICROSCOP Microscopic Results NRG WBC 2-4 0 - 4 BACTERIA 1+ Neg - Trace GLUCOSE 3+ Negative KETONE Negative Negative SPECIFIC GRAVIT <=1.005 1.010-1.025 NITRITE Negative Negative BLOOD Negative Negative Color, Urine Yellow Yellow Appearance, Urine Slightly Cloudy Clear pH, Urine 5.5 4.5 - 7.5 Protein, Urine Negative Neg-Trace Bilirubin, Urine Negative Negative Urobilinogen, Urine 0.2 <=1.0 Leukocyte Esterase,Urine Negative Negat lilia Squamous Epithelial Cell,Urine 2-5 5 - 10 Yeast, Urine 1+ Budding None Seen Antibiotic Stewardship Comment NRG Urinalysis Cult if Indicated - 08/27/19 12:24 Culture Indicated,Urine Not Indicated N RG Lactic Acid (Sepsis protocol) - 08/27/19 12:43 Lactate 3.3 mmol/L 0.4-2.0 Fingerstick Blood Sugar - 08/27/19 13:45 Fingerstick Blood Sugar 376 mg/dL 70-99 Basic Metabolic Panel - 08/27/19 14:27 BUN 3 mg/dL 5-21 CHLORIDE 101 mmol/L 100-112 CARBON DIOXIDE 24 mEq/L 18-30 POTASSIUM 3.2 mmol/L 3.4-5.2 SODIUM 137 mmol/L 135-150 GFR ESTIMATE > 60 mL/Min > 60 Anion Gap 12 mmol/L 8-11 Creatinine 0.73 mg/dL 0.60-1.30 Glucose 295 mg/dL 70-99 Calcium 8.8 mg/dL 8.6-10.5 Fingerstick Blood Sugar - 08/27/19 14:38 Fingerstick Blood Sugar 264 mg/dL 70-99 Fingerstick Blood Sugar - 08/27/19 15:37 Fingerstick Blood Sugar 253 mg/dL 70-99 Lactic Acid - 08/27/19 16:18 Lactate 2.3 mmol/L 0.4-2.0 Basic Metabolic Panel - 08/27/19 16:18 BUN 3 mg/dL 5-21 CHLORIDE 101 mmol/L 100-112 CARBON DIOXIDE 24 mEq/L 18-30 POTASSIUM 3.1 mmol/L 3.4-5.2 SODIUM 136 mmol/L 135-150 GFR ESTIMATE > 60 mL/Min > 60 Anion Gap 11 mmol/L 8-11 Creatinine 0.72 mg/dL 0.60-1.30 Glucose 230 mg/dL 70-99 Calcium 8.6 mg/dL 8.6-10.5 Fingerstick Blood Sugar - 08/27/19 17:28 Fingerstick Blood Sugar 300 mg/dL 70-99 Basic Metabolic Panel - 08/27/19 18:09 BUN 5 mg/dL 5-21 CHLORIDE 98 mmol/L 100-112 CARBON DIOXIDE 23 mEq/L 18-30 POTASSIUM 3.2 mmol/L 3.4-5.2 SODIUM 134 mmol/L 135-150 GFR ESTIMATE > 60 mL/Min > 60 Anion Gap 13 mmol/L 8-11 Creatinine 0.90 mg/dL 0.60-1.30 Glucose 367 mg/dL 70-99 Calcium 8.2 mg/dL 8.6-10.5 Fingerstick Blood Sugar - 08/27/19 18:33 Fingerstick Blood Sugar 342 mg/dL 70-99 Stool Pathogen Panel - 08/27/19 19:00 BACTERIA NRG PARASITES NRG VIRUSES NRG PANEL METHOD Testing performed using [employer] PCR NRG Day 1 08/28/19 NRG Cryptosporidium: Not Detected NRG Cyclospora cayetanensis: Not Detected N RG Entamoeba histolytica: Not Detected NRG Giardia lamblia: Not Detected NRG Adenovirus F 40/41: Not Detected NRG Astrovirus: Not Detected NRG Norovirus GI/GII: Not Detected NRG Rotavirus A: Not Detected NRG Sapovirus: Not Detected NRG Day 2 08/29/19 NRG Campylobacter: Not Detected NRG C. difficile toxin A/B: Not Detected NR G Plesiomonas shigelloides: Not Detected NRG Salmonella: Not Detected NRG Vibrio: Not Detected NRG Yersinia enterocolitica: Not Detected N RG EAEC E.coli: Not Detected NRG EPEC E.coli: Not Detected NRG ETEC E.coli lt/st: Not Detected NRG STEC stx1/stx2 E.coli: Not Detected NRG Shigella/EIEC E.coli: Not Detected NRG Report: (R) Normal gastrointestinal microbiota NRG Report: (R) Normal gastrointestinal microbiota NRG Stool Consistency: (R) [place] 6: Mushy, flu ffy pieces, ragged edges NRG Specimen Consistency NRG Fingerstick Blood Sugar - 08/27/19 19:32 Fingerstick Blood Sugar 357 mg/dL Basic Metabolic Panel - 08/27/19 20:02 BUN 6 mg/dL 5-21 CHLORIDE 99 mmol/L 100-112 CARBON DIOXIDE 22 mEq/L 18-30 POTASSIUM 3.5 mmol/L 3.4-5.2 SODIUM 134 mmol/L 135-150 GFR ESTIMATE > 60 mL/Min > 60 Anion Gap 13 mmol/L 8-11 Creatinine 0.84 mg/dL 0.60-1.30 Glucose 361 mg/dL Calcium 8.1 mg/dL 8.6-10.5 Fingerstick Blood Sugar - 08/27/19 20:30 Fingerstick Blood Sugar 355 mg/dL Fingerstick Blood Sugar - 08/27/19 21:26 Fingerstick Blood Sugar 305 mg/dL Basic Metabolic Panel - 08/27/19 22:03 BUN 7 mg/dL 5-21 CHLORIDE 102 mmol/L 100-112 CARBON DIOXIDE 22 mEq/L 18-30 POTASSIUM 3.7 mmol/L 3.4-5.2 SODIUM 136 mmol/L 135-150 GFR ESTIMATE > 60 mL/Min > 60 Anion Gap 12 mmol/L 8-11 Creatinine 0.77 mg/dL 0.60-1.30 Glucose 298 mg/dL Calcium 8.3 mg/dL 8.6-10.5 Fingerstick Blood Sugar - 08/27/19 22:31 Fingerstick Blood Sugar 279 mg/dL Fingerstick Blood Sugar - 08/27/19 23:29 Fingerstick Blood Sugar 248 mg/dL Basic Metabolic Panel - 08/28/19 00:13 BUN 7 mg/dL 5-21 CHLORIDE 102 mmol/L 100-112 CARBON DIOXIDE 23 mEq/L 18-30 POTASSIUM 3.8 mmol/L 3.4-5.2 SODIUM 136 mmol/L 135-150 GFR ESTIMATE > 60 mL/Min > 60 Anion Gap 11 mmol/L 8-11 Creatinine 0.73 mg/dL 0.60-1.30 Glucose 257 mg/dL Calcium 8.3 mg/dL 8.6-10.5 Fingerstick Blood Sugar - 08/28/19 00:32 Fingerstick Blood Sugar 245 mg/dL Fingerstick Blood Sugar - 08/28/19 01:31 Fingerstick Blood Sugar 280 mg/dL Fingerstick Blood Sugar - 08/28/19 02:42 Fingerstick Blood Sugar 282 mg/dL Fingerstick Blood Sugar - 08/28/19 03:38 Fingerstick Blood Sugar 305 mg/dL Fingerstick Blood Sugar - 08/28/19 04:47 Fingerstick Blood Sugar 302 mg/dL COMPLETE BLOOD COUNT W/DIFF - 08/28/19 0 5:28 HEMOGLOBIN 13.9 g/dL 12.0-16.0 PLATELET COUNT 281 10 3 uL 130-400 WHITE BLOOD CELL COUNT 7.0 10 3/uL 4.5-1 1.0 NEUTROPHIL% 38.2 % 43.0-72.0 LYMPHOCYTE% 49.7 % 15.0-45.0 MONOCYT% 6.5 % 1.0-12.0 EOSINOPHIL% 4.9 % 0.0-6.0 BASOPHIL% 0.7 % 0.0-2.0 NEUTROPHIL# 2.7 10 3 uL 1.0-8.0 LYMPHOCYTE# 3.5 10 3 uL 1.0-3.0 MONOCYTE# 0.5 10 3 uL 0.0-1.0 EOSINOPHIL# 0.3 10 3 uL 0.0-0.4 BASOPHIL# 0.1 10 3 uL 0.0-0.2 HEMATOCRIT 41.8 % 36-48 MEAN CORPUSCULAR VOLUME 91.3 fL 79-99 MEAN CORPUSCULAR HEMOGLOBIN 30.3 pg 25 .0-34.0 MEAN CELL HEMOGLOBIN CONC. 33.2 g/dL 31. 0-36.0 RED CELL DISTRIBUTION WIDTH 15.1 % 11 .0-15.0 MEAN PLATELET VOLUME 8.4 fL 7.0-11.0 Red Blood Count 4.58 10 6/uL 3.50-5.40 Lactic Acid (Sepsis protocol) - 08/28/19 05:28 Lactate 2.5 mmol/L 0.4-2.0 Comprehensive Metabolic Panel - 08/28/19 05:28 BILIRUBIN TOTAL 0.4 mg/dL 0.0-1.2 BUN 6 mg/dL 5-21 CHLORIDE 102 mmol/L 100-112 CARBON DIOXIDE 21 mEq/L 18-30 POTASSIUM 3.8 mmol/L 3.4-5.2 SODIUM 136 mmol/L 135-150 GFR ESTIMATE > 60 mL/Min > 60 Anion Gap 13 mmol/L 8-11 Creatinine 0.75 mg/dL 0.60-1.30 Glucose 287 mg/dL Calcium 8.2 mg/dL 8.6-10.5 Aspartate Amino Transferase 36 U/L 6- 37 Alanine Aminotransferase 32 U/L 12-78 Total Protein 6.5 g/dL 6.4-8.2 Albumin 3.0 g/dL 3.3-4.5 Albumin/Globulin Ratio 0.9 0.7-2.0 Alkaline Phosphatase 159 U/L 50-136 Phosphorous - 08/28/19 05:28 PHOSPHORUS 3.30 mg/dL 2.4-4.5 Magnesium - 08/28/19 05:28 Magnesium 1.6 mg/dL 1.6-2.6 Fingerstick Blood Sugar - 08/28/19 05:34 Fingerstick Blood Sugar 294 mg/dL Fingerstick Blood Sugar - 08/28/19 06:30 Fingerstick Blood Sugar 250 mg/dL Fingerstick Blood Sugar - 08/28/19 07:28 Fingerstick Blood Sugar 283 mg/dL Lactic Acid - 08/28/19 08:34 Lactate 2.8 mmol/L 0.4-2.0 Fingerstick Blood Sugar - 08/28/19 08:40 Fingerstick Blood Sugar 301 mg/dL Fingerstick Blood Sugar - 08/28/19 09:55 Fingerstick Blood Sugar 301 mg/dL Fingerstick Blood Sugar - 08/28/19 11:45 Fingerstick Blood Sugar 275 mg/dL COMPREHENSIVE METABOLIC PANEL - 09/03/19 10:49 ALBUMIN 3.3 g/dL 3.4-5.0 ALKALINE PHOSPHATASE 188 U/L 46-116 ALT 35 U/L 14-59 ANION GAP 13 AST 23 U/L 15-37 BILIRUBIN,TOTAL 0.3 mg/dL 0.2-1.0 BUN BLOOD 15 mg/dL 7-18 CALCIUM 8.7 mg/dL 8.8-10.1 CHLORIDE 95 mmol/L 98-107 CO2 24 mmol/L 21-32 CREATININE 0.81 mg/dL 0.55-1.02 EGFR > mL/min >59 GLUCOSE 343 mg/dL 74-106 POTASSIUM 4.1 mmol/L 3.5-5.1 PROTEIN TOTAL 7.4 g/dL 6.4-8.2 SODIUM 132 mmol/L 136-145 CBC WITH AUTO DIFFERENTIAL - 09/03/19 10 :49 BASOPHILS RELATIVE PERCENT 0.4 % 0.0 -2.5 EOSINOPHILS RELATIVE PERCENT 3.5 % < =5.0 HEMATOCRIT 46.3 % 34.9-44.5 HEMOGLOBIN 15.0 g/dL 12.0-15.5 LYMPHOCYTES RELATIVE PERCENT 41.8 % 2 2.0-49.0 MEAN CORPUSCULAR HEMOGLOBIN 29.8 pg 26 .0-34.0 MEAN CORPUSCULAR HEMOGLOBIN CONC 32.4 g/dL 31.0-37.0 MEAN CORPUSCULAR VOLUME 92.0 fL 81.6-9 8.3 MONOCYTES RELATIVE PERCENT 8.8 % 2.0 -9.0 NEUTROPHILS RELATIVE PERCENT 45.5 % 4 0.0-75.0 PLATELET COUNT 372 10*3/uL 150-450 RED BLOOD CELL COUNT 5.03 10*6/uL 3.90-5 .03 RED CELL DISTRIBUTION WIDTH 14.3 % 11 .9-15.5 [id number] 7.4 10*3/uL 3.5-10.5 [id number] 3.10 10*3/uL 0.90-2.90 [id number] 0.65 10*3/uL 0.30-0.90 [id number] 0.26 10*3/uL 0.05-0.50 [id number] 3.38 10*3/uL 1.70-7.00 [id number] 0.03 10*3/uL 0.00-0.30 BASIC METABOLIC PANEL - 09/29/19 11:43 ANION GAP 11 BUN BLOOD 7 mg/dL 7-18 CALCIUM 8.8 mg/dL 8.8-10.1 CHLORIDE 95 mmol/L 98-107 CO2 26 mmol/L 21-32 CREATININE 0.74 mg/dL 0.55-1.02 EGFR > mL/min >59 GLUCOSE 345 mg/dL 74-106 POTASSIUM 3.7 mmol/L 3.5-5.1 SODIUM 132 mmol/L 136-145 C-PEPTIDE - 09/29/19 11:43 C-PEPTIDE, SERUM 3.4 ng/mL 1.1 - 4.4 CHRISTIANNE ANTIBODIES - 09/29/19 11:43 CHRISTIANNE ANTIBODIES 76.1 U/mL 0.0 - 5.0 ISLET CELL ANTIBODY - 09/29/19 11:43 ISLET CELL ANTIBODY Negative Neg:<1:1 Fingerstick Blood Sugar - 11/05/19 12:03 Fingerstick Blood Sugar 253 mg/dL 70-99 Osmolality, Serum - 11/05/19 12:04 Osmolality, Serum 296 mOSM/kg 278-305 COMPLETE BLOOD COUNT W/DIFF - 11/05/19 1 2:05 HEMOGLOBIN 15.3 g/dL 12.0-16.0 PLATELET COUNT 386 10 3 uL 130-400 WHITE BLOOD CELL COUNT 8.7 10 3/uL 4.5-1 1.0 NEUTROPHIL% 56.3 % 43.0-72.0 LYMPHOCYTE% 33.8 % 15.0-45.0 MONOCYT% 6.5 % 1.0-12.0 EOSINOPHIL% 2.7 % 0.0-6.0 BASOPHIL% 0.7 % 0.0-2.0 NEUTROPHIL# 4.9 10 3 uL 1.0-8.0 LYMPHOCYTE# 2.9 10 3 uL 1.0-3.0 MONOCYTE# 0.6 10 3 uL 0.0-1.0 EOSINOPHIL# 0.2 10 3 uL 0.0-0.4 BASOPHIL# 0.1 10 3 uL 0.0-0.2 HEMATOCRIT 45.8 % 36-48 MEAN CORPUSCULAR VOLUME 87.9 fL 79-99 MEAN CORPUSCULAR HEMOGLOBIN 29.3 pg 25 .0-34.0 MEAN CELL HEMOGLOBIN CONC. 33.4 g/dL 31. 0-36.0 RED CELL DISTRIBUTION WIDTH 14.3 % 11 .0-15.0 MEAN PLATELET VOLUME 7.9 fL 7.0-11.0 Red Blood Count 5.22 10 6/uL 3.50-5.40 Venous Blood Gas - 11/05/19 12:05 VBG PH 7.46 7.35-7.45 VBG PCO2 38.0 mmHg 38.0-50.0 VBG PO2 66.0 mmHg 30-43 VBG HCO3 27.0 mEq/L 22.0-29.0 VBG Total CO2 28.2 mEq/L 21-33 VBG Base Excess 3.1 mEq/L -2-2 VBG Oxygen Saturation 92.5 % 88-100 VBG Hemoglobin 16.3 g/dL 12.0-16.0 VBG Methemoglobin 1.1 % 0.4-1.5 VBG Inspired Oxygen 21.0 % NRG Comprehensive Metabolic Panel - 11/05/19 12:05 BILIRUBIN TOTAL 0.3 mg/dL 0.0-1.2 BUN 10 mg/dL 5-21 CHLORIDE 99 mmol/L 100-112 CARBON DIOXIDE 24 mEq/L 18-30 POTASSIUM 3.7 mmol/L 3.4-5.2 SODIUM 138 mmol/L 135-150 GFR ESTIMATE > 60 mL/Min > 60 Anion Gap 15 mmol/L 8-11 Creatinine 0.78 mg/dL 0.60-1.30 Glucose 226 mg/dL 70-99 Calcium 9.3 mg/dL 8.6-10.5 Aspartate Amino Transferase 42 U/L 6- 37 Alanine Aminotransferase 25 U/L 12-78 Total Protein 7.3 g/dL 6.4-8.2 Albumin 3.5 g/dL 3.3-4.5 Albumin/Globulin Ratio 0.9 0.7-2.0 Alkaline Phosphatase 174 U/L 50-136 Ketone Body Qual, serum/plasma - 0 12:05 Ketone Body Qual, serum/plasma Negative Negative Urinalysis Cult if Indicated - 11/05/19 13:50 GLUCOSE 3+ Negative KETONE Negative Negative SPECIFIC GRAVIT <=1.005 1.010-1.025 NITRITE Negative Negative BLOOD Negative Negative Color, Urine Yellow Yellow Appearance, Urine Clear Clear pH, Urine 6.0 4.5 - 7.5 Protein, Urine Negative Neg-Trace Bilirubin, Urine Negative Negative Urobilinogen, Urine 0.2 <=1.0 Leukocyte Esterase,Urine Negative Negat lilia Culture Indicated,Urine Not Indicated N RG Antibiotic Stewardship Comment NRG Osmolality, Urine - 11/05/19 13:50 Osmolality, Urine 331 mOSM/kg 50-1200 Radiology Report from [id number] on 9 15:20:04 EXAM: CT Head without IV contrastINDICAT ION: ams. Altered mental status.TECHNIQUE: Multi-detector row CT images were obtained of the head without the use of IV contrast. All CT scans performed at this facility utilize dose optimization techniques as appropriate to the exam, including the following: Automated exposurecontroland adjustment of the mA and/or KV according to patient size (this includes techniques or standardized protocols for targeted exams where dose is indication/reason for exam).[facility] 846 mGycOMPARISON: NoneFINDINGS:BRAIN PARENCHYMA: No evidence of acute intraparenchymal hemorrhage or infarct. No abnormal parenchymal density or mass.VENTRICLES T EXTRA-AXIAL SPACES: Ventricles are within normal limits. Basilar cisterns are patent. No pathologic extra-axial fluid collection or mass.ORBITS: Orbital contents are unremarkable.SINUSES: Visualized paranasal sinuses and mastoid air cells are clear.OSSEOUS T SOFT TISSUES: Calvarium and skull base are intact.IMPRESSION:1. No acute intracranial abnormality is identified.Electronically signed by Lacy Posada: 06/05/2019 3:18 PM Radiology Report from [id number] on 9 15:56:46 EXAM: Chest, AP ViewINDICATION: Cough, g reater than 1 weekTECHNIQUE: Single AP viewCOMPARISON: NoneFINDINGS:T S-shaped scoliosis of the thoracic spine. Cardiomediastinal and hilar silhouettes are stable. Patchy consolidative opacities right mid to upper lung. No some minimal streaky parenchymal densities in the left mid to upper lung. Study is degraded bymotion artifact. No pleural effusion or pneumothorax.IMPRESSION:Right upper lobe pneumonic infiltrate. Additional infiltrate or atelectasis left mid upper lung. Recommend chest x-ray follow-up in 4-6 weeks to document resolution. Radiology Report from [id number] on 9 17:16:40 EXAM: CT Pulmonary AngiogramINDICATION: PE suspected, intermediate prob, neg D- dimerTECHNIQUE: Multi-detector row images were acquired from the thoracic inlet through the upper abdomen with the use of IV contrast. Sagittal and coronal images were acquired from the transaxial data. MIP images of the pulmonary arteries were obtained.All CT scans performed at this facility utilize dose optimization techniques as appropriate to the exam, including the following: Automated exposure control and adjustment of the mA and/or KV according to patient size (this includes techniques orstandardized protocols for targeted exams where dose is indication/reason for exam).IV CONTRAST: AdministeredDLP 550 mGycmCOMPARISON: NoneFINDINGS:PULMONARY ARTERIES: No pulmonary emboli are identified.CARDIOVASCULAR: Unremarkable Aorta is normal caliber. Reflux of contrast material into the hepatic veins.MEDIASTINUM T CHRISTELLE: Mild mediastinal adenopathy.LUNGS: Extensive consolidating and patchy bilateral pulmonary infiltrates.PLEURAL SPACE: No pleural effusions or pneumothorax.OSSEOUS T SOFT TISSUE: Multiple old right rib fracture deformities. S-shaped curvature of the spine.ABDOMEN: Hepatomegaly and hepatic steatosis. Postcholecystectomy change.IMPRESSION:1. No pulmonary artery embolism.2. Extensive consolidating and patchy bilateral pulmonary infiltrates characteristic of multifocal pneumonia.3. Reflux of contrast material into the hepatic veins suggests increased right heart pressure.4. Mild mediastinal adenopathy may be reactive but is nonspecific.5. Hepatomegaly and hepatic steatosis.Electronically signed by Derek Bee, MDDT: 06/20/2019 5:15 PM Radiology Report from [id number] on 0 11:02:36 EXAM: Right Elbow, 4 viewsINDICATION: In jury, right elbow painTECHNIQUE: AP, bilateral oblique, and lateral viewsCOMPARISON: NoneFINDINGS:There is no fracture, dislocation, or bone destruction.The joint spaces are maintained.There is no other osseous abnormality.The soft tissues are unremarkable without evidence of joint effusion.IMPRESSION:Normal right elbow. Patient fell out of wheelchair this morning and hit her right elbow on the curb. Pain is on the most posterior portion of her right elbow. Radiology Report from [id number] on 16:11:00 [facility] [address] [place] [address] XRay Report Signed Patient: Felipe Haddad MR#: [id number] : 1970 Acct:[id number] Age/Sex: 49 / F ADM Date: 10/20/19 Loc: ED Attending Provider: Ordering Provider: Radha Ross Date of Service: 10/20/19 Procedure(s): XR ribs RT min 3V w CXR1V Accession Number(s): [id number] PA view chest and two views right rib series Clinical history: Fall. Pain right anterior upper chest right lateral side Comparison: None. Findings: The heart size is normal. The great vessels appear un remarkable. There is no hilar or mediastinal mass. The lungs are clear. There is no pleural effusion or pneumothorax. There appears to be possible acute fracture of the anterior right 8th rib. No additional acute fractures identified. Multiple chronic appearing right-sided rib fractures noted. Probable chronic appearing left-sided rib fracture. IMPRESSION: 1. There appears to be possible acute fracture of the anterior right 8th rib. 2. Chronic appearing bilateral rib fractures noted. Dictated By: Lacy Bee Signed By: 10/20/191609 DD/ 1609 TD/TT: [employer] Groover: ANSELMO cc: Radha Ross; Vahid Boateng Radiology Report from [id number] on 16:14:00 [place] [address] XRay Report Signed Patient: Felipe Haddad MR#: [id number] : 1970 Acct:[id number] Age/Sex: 49 / F ADM Date: 10/20/19 Loc: ED Attending Provider: Ordering Provider: Radha Ross Date of Service: 10/20/19 Procedure(s): XR foot LT min 3V Accession Number(s): [id number] Clinical history: Fall. Pain in the top of the foot and 1st and 2nd toe. Comparison: 04/01/2019 study from the [facility] system. Findings: Three views of the left foot are obtained and demonstrate diffuse osteopenia. There is narrowing of the interphalangeal joints diffusely. Screws are seen through the midfoot structures including the cuneiforms through the region of the navicular bone and talus. Screws also seen through the calcaneus into the talus with loss of space between the talus and calcaneus as well as narrowing of the midfoot spaces and spurring of the dorsum of the talonavicular joint and talar beaking. The ankle joint appears stable. Tibia and fibula are normal. There is soft tissue prominence over the dorsum of the foot and due to edema also edema around the ankle and l ower leg. There does not appear to be acute fracture or dislocation. There is some irregularity along the navicular bone medially. This does not appear greatly changed however when compared to 2019 allowing for differences in technique. Impression: 1. Postoperative changes involving the midfoot and hindfoot and talus all appear intact without surrounding fracture or lucency. 2. Diffuse osteopenia without definite acute fracture or dislocation. There is some irregularity of the navicular bone medially which appears present in 2019 not greatly changed allowing for differences in technique. Other osseous degenerative findings, as above. 3. Soft tissue edema over the dorsum of the foot and around the ankle and lower leg similar to the prior. Overall, the findings do appear unchanged. Dictated By: Tom Mills Signed By: 10/20/19 1614 DD/DT: 0 10/20/191612 TD/TT: [employer] Groover: ADY cc: Radha Ross; Vahid Boateng Encounters ACCT No. Visit Date/Time Discharge Status Pt. Type Provider Facility Loc./Unit Complaint [id number] 08/07/2017 10:47:00 Document Registration [id number] 08/16/2017 07:04:00 018 13:59:00 DIS Outpatient House Shawn V [facility] on [place] [facility] F3E Other specified acqu ired deformities of left lower leg - Lef [id number] 08/17/2017 05:17:23 Document Registration [id number] 08/16/2017 05:17:12 Document Registration [id number] 08/16/2017 05:17:11 Document Registration [id number] 08/08/2018 00:46:00 08/08/2018 23:59: 59 CLS Outpatient Nate Bassett [facility] gladis ER [id number] 03/21/2018 15:27:00 03/21/2018 16:39: 00 DIS Outpatient Mehran [facility] ER [id number] 02/27/2018 16:44:00 02/27/2018 18:25: 00 DIS Outpatient Bernarda Bliss [facility] ER [id number] 02/19/2018 16:27:00 02/19/2018 20:16: 00 DIS Outpatient Ronak Laurent [facility] ER [id number] 02/11/2018 00:14:00 02/11/2018 03:00: 00 DIS Outpatient FABIAN GARCÍA [facility] ER [id number] 12/08/2019 18:25:41 Document Registration [id number] 02/11/2018 01:59:50 Document Registration [id number] 02/13/2017 12:26:24 Document Registration [id number] 11/15/2016 12:52:43 Document Registration [id number] 10/17/2016 13:27:32 Document Registration [id number] 08/28/2016 08:55:14 Document Registration [id number] 05/05/2019 14:07:19 2018 16:11:00 DIS Emergency JOLLY SOTELO U at [address] [id number] 01/07/2019 16:45:45 2018 21:10:00 DIS Emergency WILMER MALONEY U at [address] [id number] 12/19/2018 15:34:37 2018 19:37:00 DIS Emergency RUPESH CONRAD at [address] [id number] 11/05/2019 11:56:00 14:37:00 DIS Emergency Ajit Wayne [facility] ED diabetic problem [id number] 10/20/2019 15:17:00 16:50:00 DIS Emergency Radha Ross (Express) [facility] ED Chest Pain [id number] 09/12/2019 14:07:00 23:59:59 CLS Outpatient Gina Shoemaker (Exps) AMB.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 [id number] 08/27/2019 15:20:00 12:36:00 DIS Inpatient Yadiel Mccray [facility] CDU diabetic problem [id number] 11/15/2016 10:01:07 11/15/2016 23: 59:59 CLS Outpatient [facility] [id number] 11/14/2016 00:00:00 11/14/2016 23: 59:59 CLS Outpatient [facility] [id number] 10/17/2016 13:27:32 10/17/2016 23: 59:59 CLS Outpatient [facility] [id number] 09/05/2016 00:00:00 09/05/2016 23: 59:59 CLS Outpatient [facility] [id number] 09/05/2016 00:00:00 09/05/2016 23: 59:59 CLS Outpatient [facility] [id number] 08/30/2016 00:00:00 08/30/2016 23: 59:59 CLS Outpatient [facility] [id number] 08/30/2016 00:00:00 08/30/2016 23: 59:59 CLS Outpatient [facility] [id number] 08/28/2016 08:55:14 08/28/2016 23: 59:59 CLS Outpatient [facility] [id number] 10/02/2018 14:20:00 10/02/2018 23:59: 59 CLS [facility] [id number] 03/27/2018 12:40:00 Document Registration [id number] 01/29/2018 10:00:00 Document Registration [id number] 08/01/2017 17:20:00 Document Registration [id number] 05/15/2017 15:00:00 Document Registration [id number] 08/28/2018 09:28:16 ACT Unknown [id number] 12/08/2019 19:37:00 20:21:00 DIS Emergency NATE BASSETT [facility]O [facility] ER RASH [id number] 10/22/2018 16:59:00 23:59:59 CLS Preadmit NORMA VAZQUEZ [facility] SLEEP MARIA ISABEL G47.33 [id number] 10/07/2018 08:15:00 23:59:59 CLS Preadmit NORMA VAZQUEZ [facility] PULM ASTHMA [id number] 08/27/2018 10:00:00 00:01:00 DIS Outpatient NORMA VAZQUEZ [facility] PULM ASTHMA [id number] 09/18/2018 19:47:00 07:38:00 DIS Outpatient NROMA VAZQUEZ [facility] SLEEP SUSPECTED SLEEP APNEA,SLEEP DISORDER,ASTHMA [id number] 08/13/2018 11:23:00 23:59:59 CLS Outpatient NORMA VAZQUEZ [facility]ATO [facility]KE [facility] LAB RESTRICTIVE QUINTEN G DISEASE [id number] 08/04/2018 09:40:00 21:07:00 DIS Inpatient CAMILA GREENBERG DO, [facility] 4TH COPD EXACERBATION,CHF,I DDM [id number] 07/25/2018 15:51:00 17:38:00 DIS Emergency TAMEKA KEYS, LEATHA Shah [facility] ER UNREPONSIVE [id number] 06/06/2018 20:00:00 23:59:59 CLS Preadmit NORMA VAZQUEZ APRN [facility] SLEEP ASTHMA, CHRONIC BRONCHITIS, HYPERSOMNIA [id number] 05/27/2018 12:11:00 23:59:59 CLS Outpatient NORMA VAZQUEZ POTATO PANCAKE [facility] RT ASTHMA,CHRONIC BRONCHITIS,HYPERSOMNIA,RESTLESS LEG [id number] 05/14/2018 15:05:00 23:59:59 CLS Outpatient NORMA VAZQUEZ POTATO PANCAKE [facility] LAB ASTHMA [id number] 10/29/2019 07:14:41 0 23:59:59 CLS Outpatient MIKY BECERRA [facility] EMPOR [id number] 09/29/2019 11:37:06 0 23:59:59 CLS Outpatient [facility] EMPOR [id number] 09/29/2019 10:31:55 0 23:59:59 CLS Outpatient MIKY BECERRA [facility] EMPOR [id number] 09/03/2019 10:48:46 0 23:59:59 CLS Outpatient [facility] EMPORXR [id number] 09/03/2019 10:39:39 0 23:59:59 CLS Outpatient [facility] EMPOR [id number] 09/03/2019 09:21:09 0 23:59:59 CLS Outpatient VAHID BOATENG [facility] EMPOR [id number] 08/05/2019 11:41:47 0 23:59:59 CLS Outpatient [facility] EMPOR [id number] 08/05/2019 09:29:39 0 23:59:59 CLS Outpatient VAHID BOATENG [facility] EMPOR [id number] 06/17/2019 14:01:02 9 15:00:00 DIS Inpatient IRMA SCHILLING [facility] [id number] 06/05/2019 14:22:06 9 18:48:00 DIS Emergency GRUPO HI [facility] [id number] 12/29/2018 13:24:38 9 16:23:00 DIS Emergency TOM PEREZ [facility] [id number] 04/06/2017 15:40:18 7 23:59:59 CLS Outpatient [facility] [id number] 04/06/2017 15:38:43 7 23:59:59 CLS Outpatient [facility] [id number] 04/06/2017 15:10:13 7 23:59:59 CLS Outpatient JUAN JOSE ANN M [place] [id number] 03/07/2017 11:27:38 7 23:59:59 [id number]/19/2017 12:56:06 7 23:59:00 [id number]/18/2017 22:08:39 7 00:03:00 DIS Emergency TOM PEREZ [facility] [id number] 02/15/2017 12:43:26 7 23:59:59 CLS Outpatient [facility] CODE [id number] 02/05/2017 20:36:04 7 22:21:00 DIS Emergency WILLIS SCHAFFER [facility] [id number] 01/25/2017 13:49:36 7 23:59:59 CLS Outpatient NATALIE MILES [place] [id number] 01/12/2017 18:47:23 7 19:33:00 DIS Emergency BRENT BRAVO [facility] [id number] 01/03/2017 07:56:04 7 23:59:00 DIS Outpatient NATALIE MILES [facility] [id number] 12/20/2016 14:06:48 7 23:59:59 CLS Outpatient [facility] [id number] [id number] 12/20/2016 12:32:09 7 23:59:59 CLS Outpatient ANN INGRAM [place] [id number] 12/12/2016 19:17:11 7 21:07:00 DIS Emergency ABDULKADIR JAVED [facility] [id number] 12/01/2016 14:40:35 7 23:59:59 CLS Outpatient BOB SCOTT [facility] [id number] [id number] 10/16/2016 15:36:13 7 15:37:00 DIS Emergency [facility] [id number] 08/21/2016 09:57:38 7 23:59:59 CLS Outpatient [facility] [id number] 10/09/2019 13:18:47 Document Registration [id number] 09/01/2019 11:09:02 Document Registration [id number] 06/20/2019 16:35:39 Document Registration [id number] 06/17/2019 15:41:32 Document Registration [id number] 06/05/2019 15:01:18 Document Registration [id number] 02/09/2017 12:57:29 Document Registration [id number] 12/12/2016 19:21:19 Document Registration [id number] 11/15/2016 10:57:02 11/15/2016 23: 59:00 DIS Outpatient [facility] FNRTCL [id number] 11/15/2016 10:55:35 11/15/2016 10: 56:00 [id number] 10/17/2016 14:40:55 10/17/2016 23: 59:00 [id number] 13:39:49 09/01/2016 23: 59:00 [facility] [id number] 08/28/2016 11:04:23 08/28/2016 23: 59:00 DIS Outpatient [facility] [id number] 04/17/2014 17:32:00 04/17/2014 20: 09:00 DIS Emergency TEDDY CAPUTO [facility] FED [id number] 04/17/2014 00:57:00 04/17/2014 04: 03:00 DIS Emergency NELLIE ALEJO [facility] FED [id number] 04/15/2014 22:57:00 04/16/2014 00: 43:00 DIS Emergency [facility] FED [id number] 03/03/2014 09:55:30 03/03/2014 23: 59:00 DIS Outpatient LIZY DAILEY [facility] FCRTST [id number] 01/06/2014 15:33:14 01/06/2014 23: 59:00 [id number] 12/16/2013 00:54:23 12/16/2013 03: 50:00 DIS Emergency NELLIE ALEJO [facility] [id number] 11/26/2013 10:45:27 11/26/2013 23: 59:00 DIS Outpatient LIZY DAILEY [facility] [id number] 10/27/2013 13:04:20 10/27/2013 23: 59:00 DIS Outpatient LIYZ [facility]
== END 2019-12-08 20:21 | disposition home or self-care (01) ==
LOC: EDUNIT# 19:36 → ER 19:37
DX: S60.861A Insect bite (nonvenomous) of right wrist, initial encounter (principal); L98.9 Disorder of the skin and subcutaneous tissue, unspecified; J44.9 Chronic obstructive pulmonary disease, unspecified; I10 Essential (primary) hypertension; E11.40 Type 2 diabetes mellitus with diabetic neuropathy, unspecified; E78.00 Pure hypercholesterolemia, unspecified; I25.2 Old myocardial infarction; I25.10 Atherosclerotic heart disease of native coronary artery without angina pectoris; G43.909 Migraine, unspecified, not intractable, without status migrainosus; E03.9 Hypothyroidism, unspecified; E66.09 Other obesity due to excess calories; Z88.0 Allergy status to penicillin; Z79.890 Hormone replacement therapy; Z88.8 Allergy status to other drugs, medicaments and biological substances; Z79.52 Long term (current) use of systemic steroids; Z68.43 Body mass index [BMI] 50.0-59.9, adult; Z79.4 Long term (current) use of insulin; Z87.891 Personal history of nicotine dependence; W57.XXXA Bitten or stung by nonvenomous insect and other nonvenomous arthropods, initial encounter
CPT/HCPCS: 99284

== ENCOUNTER 2019-12-19 00:27 | Emergency (ER) | payer MEDICAID ==
[~2019-12-19] VITALS: Ht 152 cm; Wt 135.0 kg
[~2019-12-19 00:27] MED LIST changes: +MUPI15CR11 TP; +TR1C15 TP
--- OUTSIDE RECORDS SUMMARY | 2019-12-19 00:37 | XMS REPORT | Continuity of Care Document ---
Demographics Preferred Language Unknown Marital Status Unknown Nondenominational Affiliation Unknown Race Unknown Ethnic Group Unknown Author Organization Unknown Address Unknown Phone Unavailable Allergies Active Description Code Type Severity Reaction Onset Reported/Identified Relationship to Patient Clinical Status Yes BUTORPHANOL TARTRATE UNKNOWN UNKNOWN Yes PENICILLINS UNKNOWN UNKNOWN Yes PSYCH MEDS UNKNOWN UNKNOWN Yes BUTORPHANOL TARTRATE 32572 D RUG INGREDI N/A N/A 01/29/2011 Yes PENICILLINS 26 Drug Class N/A N/A 01/29/2011 Yes DULOXETINE HCL 52475 DRUG N/A N/A 11/01/2011 Yes DULOXETINE HCL 36505 DRUG N/A Other 11/01/2011 11/01/2011 Yes GABAPENTIN 19251 DRUG INGREDI N/A N/A 11/01/2011 Yes GABAPENTIN 08346 DRUG INGREDI N/A Other 11/01/2011 11/01/2011 Yes OXCARBAZEPINE 83950 DRUG INGREDI Med Hives 11/01/2011 Yes ZIPRASIDONE 47185 DRUG INGREDI N/A N/A 11/01/2011 Yes BUTORPHANOL TARTRATE 1580 D rug Allergy N/A Unknown 07/12/2012 Yes DULOXETINE 8705 Drug Allergy N/A Unknown 07/12/2012 Yes PENICILLINS 476 Drug Allergy N/A Unknown 07/12/2012 Yes GABAPENTIN 4415 Drug Allergy N/A Other 08/28/2016 Yes OXCARBAZEPINE 6035 Drug Allergy N/A Other 08/28/2016 Yes ZIPRASIDONE HCL 9105 Drug Allergy N/A Unknown 08/28/2016 Yes TRAMADOL 38575 DRUG INGREDI N/A ItchingRNausea 03/07/2017 Yes TRAMADOL 37079 DRUG INGREDI N/A Itching~Nausea 03/07/2017 03/07/2017 Yes penicillin NKMA N/A UNKNOWN AT THIS TIME 08/15/2017 Yes Stadol NKMA N/A UKNOWN AT THIS TIME 08/15/2017 Yes penicillin NKMA N/A N/V, FEVER 08/16/2017 Yes SYMBALTA SYMBALTA Un known NAUSEA 05/27/2018 Yes butorphanol [id number] Drug Aller gy Severe N/A 08/04/2018 Yes Penicillins [id number] Drug Aller gy Unknown NAUSEA 08/04/2018 Yes SERTRALINE 84054 DRUG INGREDI Low N&V 04/02/2019 04/02/2019 Yes [...] mL 06/17/2019 Oral 5 EVERY 4 HOURS CO N polyethylene glycol (MIRALAX) packet 17 g [...] mL 06/20/2019 Nebulization 3 3 TIMES DAILY ohnnaxa-fedeixnnraild-njimrr ne (EXCEDRIN MIGRAINE) tablet 1 tablet 06/20/2019 [...] chest pain 08/28/2016 WORKING R56.9 Unspecified convulsions [place] [place] 08/28/2016 WORKING R60.0 Localized edema 08/28/2016 WORKING Z01.419 Encounter for gynecological examination (general) (routine) without abnormal findings 08/28/2016 WORKING Z12.4 Encounter for screening for malignant neoplasm of cervix 08/28/2016 WORKING Z23 E ncounter for immunization 08/28/2016 WORKING Z68.43 Body mass index (bmi) 50-59.9 , adult ([facility] [place]) 09/01/2016 PUJA CUELLAR WORKING R60.0 Localized edema 10/16/2016 V 311193 Ins ect Bite 10/17/2016 PUJA CUELLAR WORKING [...] tissue disorders 12/12/2016 DEVADER, ABDULKADIR E V 41645 0 Chest Pain DEVADER, ABDULKADIR E 12/12/2016 [...] adult 08/21/2017 House Shawn Final Z79. 84 penitentiary (current) use of oral hypoglycemic drugs 08/21/2017 [...] J45.909 UNSPECIFIED ASTHMA, UNCOMPLICATED 05/27/2018 NORMA VAZQUEZ SUPERINTENDENT MARINE OIL TERMINAL Ot G25.81 RESTLESS LEGS SYNDROME 05/27/2018 NORMA VAZQUEZ SUPERINTENDENT MARINE OIL TERMINAL Ot G47.10 HYPERSOMNIA, UNSPECIFIED 05/27/2018 NORMA VAZQUEZ SUPERINTENDENT MARINE OIL TERMINAL Ot J42 UNSPECIFIED CHRONIC BRONCHITIS 05/27/2018 ARAM VAZQUEZINE E SUPERINTENDENT MARINE OIL TERMINAL Ot J45.909 UNSPECIFIED ASTHMA, UNCOMPLICATED 05/28/2018 TAYLOR, NORMA E SUPERINTENDENT MARINE OIL TERMINAL Ot G25.81 RESTLESS LEGS SYNDROME 05/28/2018 TAYLOR, NORMA E SUPERINTENDENT MARINE OIL TERMINAL Ot G47.10 HYPERSOMNIA, UNSPECIFIED 05/28/2018 TAYLORARAM SORENSONINE E SUPERINTENDENT MARINE OIL TERMINAL Ot J42 UNSPECIFIED CHRONIC BRONCHITIS 05/28/2018 ARAM VAZQUEZINE E SUPERINTENDENT MARINE OIL TERMINAL Ot J45.909 UNSPECIFIED ASTHMA, UNCOMPLICATED 05/31/2018 TAYLOR, NORMA E SUPERINTENDENT MARINE OIL TERMINAL Ot G25.81 RESTLESS LEGS SYNDROME 05/31/2018 TAYLOR, NORMA E SUPERINTENDENT MARINE OIL TERMINAL Ot G47.10 HYPERSOMNIA, UNSPECIFIED 05/31/2018 TAYLORARAM SORENSONINE E SUPERINTENDENT MARINE OIL TERMINAL Ot J42 UNSPECIFIED CHRONIC BRONCHITIS 05/31/2018 ARAM VAZQUEZINE E SUPERINTENDENT MARINE OIL TERMINAL Ot J45.909 UNSPECIFIED ASTHMA, UNCOMPLICATED 06/17/2018 NORMA VAZQUEZ SUPERINTENDENT MARINE OIL TERMINAL Ot G25.81 RESTLESS LEGS SYNDROME 06/17/2018 NORMA VAZQUEZ SUPERINTENDENT MARINE OIL TERMINAL Ot G47.10 HYPERSOMNIA, UNSPECIFIED 06/17/2018 ARAM VAZQUEZINE E SUPERINTENDENT MARINE OIL TERMINAL Ot J42 UNSPECIFIED CHRONIC BRONCHITIS 06/17/2018 ARAM VAZQUEZINE E SUPERINTENDENT MARINE OIL TERMINAL Ot J45.909 UNSPECIFIED ASTHMA, UNCOMPLICATED 07/08/2018 ARAM VAZQUEZINE E SUPERINTENDENT MARINE OIL TERMINAL Ot G25.81 RESTLESS LEGS SYNDROME 07/08/2018 ARAM VAZQUEZINE E SUPERINTENDENT MARINE OIL TERMINAL Ot G47.10 HYPERSOMNIA, UNSPECIFIED 07/08/2018 ARAM VAZQUEZINE E SUPERINTENDENT MARINE OIL TERMINAL Ot J42 UNSPECIFIED CHRONIC BRONCHITIS 07/08/2018 ARAM VAZQUEZINE E SUPERINTENDENT MARINE OIL TERMINAL Ot J45.909 UNSPECIFIED ASTHMA, UNCOMPLICATED 07/08/2018 ARAM VAZQUEZINE E SUPERINTENDENT MARINE OIL TERMINAL Ot G25.81 RESTLESS LEGS SYNDROME 07/08/2018 ARAM VAZQUEZINE E SUPERINTENDENT MARINE OIL TERMINAL Ot G47.10 HYPERSOMNIA, UNSPECIFIED 07/08/2018 ARAM VAZQUEZINE E SUPERINTENDENT MARINE OIL TERMINAL Ot J42 UNSPECIFIED CHRONIC BRONCHITIS 07/08/2018 NORMA VAZQUEZ SUPERINTENDENT MARINE OIL TERMINAL Ot J45.909 UNSPECIFIED ASTHMA, UNCOMPLICATED 07/25/2018 TAMEKA [...] CAMILA Ot I25.10 ATHSCL HEART DISEASE OF [place] CORONARY 08/05/2018 DIONICIO SALAS CAMILA Ot I25.2 [...] ADULT 08/05/2018 ROSA GREENBERG DOI Ot 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 08/05/2018 DIONICIO [...] CAMILA Ot I25.10 ATHSCL HEART DISEASE OF [place] CORONARY 08/05/2018 CAMILA GREENBERG DO Ot I25.2 [...] ADULT 08/05/2018 CAMILA GREENBERG DO Ot Z79.4 CORRECTION (CURRENT) USE OF INSULIN 08/05/2018 CAMILA GREENBERG DO Ot Z86.73 PRSNL HX OF TIA (TIA), AND CEREB INFRC W 08/05/2018 CAMILA GREENBERG DO Ot Z87.89 1 PERSONAL HISTORY OF NICOTINE DEPENDENCE 08/06/2018 NORMA VAZQUEZ SUPERINTENDENT MARINE OIL TERMINAL Ot G25.81 RESTLESS LEGS SYNDROME 08/06/2018 NORMA VAZQUEZ SUPERINTENDENT MAR[employer] OIL TERMINAL Ot G47.10 HYPERSOMNIA, UNSPECIFIED 08/06/2018 NORMA VAZQUEZ APRN Ot J42 UNSPECIFIED CHRONIC BRONCHITIS 08/06/2018 NORMA VAZQUEZ APRN Ot J45.909 UNSPECIFIED ASTHMA, UNCOMPLICATED 08/06/2018 NORMA VAZQUEZ APRN Ot J98.4 OTHER DISORDERS OF LUNG 08/08/2018 Nate Bassett W 278.03 OBESITY HYPOVENTILATION SYNDROME 08/08/2018 Nate Bassett W E66.2 MORBID (SEVERE) OBESITY WITH ALVEOLAR HYPOVENTILATION 08/13/2018 NORMA VAZQUEZ SUPERINTENDENT MARINE OIL TERMINAL Ot G25.81 RESTLESS LEGS SYNDROME 08/13/2018 NORMA VAZQUEZ SUPERINTENDENT MARINE OIL TERMINAL Ot G47.10 HYPERSOMNIA, UNSPECIFIED 08/13/2018 NORMA VAZQUEZ SUPERINTENDENT MARINE OIL TERMINAL Ot J42 UNSPECIFIED CHRONIC BRONCHITIS 08/13/2018 NORMA VAZQUEZ SUPERINTENDENT MARINE OIL TERMINAL Ot J45.909 UNSPECIFIED ASTHMA, UNCOMPLICATED 08/13/2018 NORMA VAZQUEZ SUPERINTENDENT MARINE OIL TERMINAL Ot J98.4 OTHER DISORDERS OF LUNG 08/14/2018 TAYLORARAM SORENSONINE E SUPERINTENDENT MARINE OIL TERMINAL Ot G25.81 RESTLESS LEGS SYNDROME 08/14/2018 TAYLORARAM SORENSONINE E SUPERINTENDENT MARINE OIL TERMINAL Ot G47.10 HYPERSOMNIA, UNSPECIFIED 08/14/2018 TAYLORARAM SORENSONINE E SUPERINTENDENT MARINE OIL TERMINAL Ot J42 UNSPECIFIED CHRONIC BRONCHITIS 08/14/2018 ARAM VAZQUEZINE E SUPERINTENDENT MARINE OIL TERMINAL Ot J45.909 UNSPECIFIED ASTHMA, UNCOMPLICATED 08/14/2018 TAYLORARAM SORENSONINE Juanito SUPERINTENDENT MARINE OIL TERMINAL Ot J98.4 OTHER DISORDERS OF LUNG 08/14/2018 TAYLORARAM SORENSONINE E SUPERINTENDENT MARINE OIL TERMINAL Ot G25.81 RESTLESS LEGS SYNDROME 08/14/2018 TAYLORARAM SORENSONINE E SUPERINTENDENT MARINE OIL TERMINAL Ot G47.10 HYPERSOMNIA, UNSPECIFIED 08/14/2018 TAYLORARAM SORENSONINE E SUPERINTENDENT MARINE OIL TERMINAL Ot J42 UNSPECIFIED CHRONIC BRONCHITIS 08/14/2018 ARAM VAZQUEZINE Juanito SUPERINTENDENT MARINE OIL TERMINAL Ot J45.909 UNSPECIFIED ASTHMA, UNCOMPLICATED 08/14/2018 TAYLORARAM SORENSONINE E SUPERINTENDENT MARINE OIL TERMINAL Ot J98.4 OTHER DISORDERS OF LUNG 08/15/2018 NORMA VAZQUEZ SUPERINTENDENT MARINE OIL TERMINAL Ot G25.81 RESTLESS LEGS SYNDROME 08/15/2018 NORMA VAZQUEZ SUPERINTENDENT MARINE OIL TERMINAL Ot G47.10 HYPERSOMNIA, UNSPECIFIED 08/15/2018 TAYLORARAM SORENSONINE E SUPERINTENDENT MARINE OIL TERMINAL Ot J42 UNSPECIFIED CHRONIC BRONCHITIS 08/15/2018 NORMA VAZQUEZ SUPERINTENDENT MARINE OIL TERMINAL Ot J45.909 UNSPECIFIED ASTHMA, UNCOMPLICATED 08/15/2018 ARAM VAZQUEZINE E SUPERINTENDENT MARINE OIL TERMINAL Ot J98.4 OTHER DISORDERS OF LUNG 08/20/2018 NORMA VAZQUEZ SUPERINTENDENT MARINE OIL TERMINAL Ot G25.81 RESTLESS LEGS SYNDROME 08/20/2018 NORMA VAZQUEZ SUPERINTENDENT MARINE OIL TERMINAL Ot G47.10 HYPERSOMNIA, UNSPECIFIED 08/20/2018 ARAM VAZQUEZINE Juanito SUPERINTENDENT MARINE OIL TERMINAL Ot J42 UNSPECIFIED CHRONIC BRONCHITIS 08/20/2018 ARAM VAZQUEZINE Juanito SUPERINTENDENT MARINE OIL TERMINAL Ot J45.909 UNSPECIFIED ASTHMA, UNCOMPLICATED 08/20/2018 TAYLORARAM SORENSONINE E SUPERINTENDENT MARINE OIL TERMINAL Ot J98.4 OTHER DISORDERS OF LUNG 08/27/2018 TAYLORNORMA SORENSON SUPERINTENDENT MARINE OIL TERMINAL Ot G25.81 RESTLESS LEGS SYNDROME 08/27/2018 NORMA VAZQUEZ SUPERINTENDENT MARINE OIL TERMINAL Ot G47.10 HYPERSOMNIA, UNSPECIFIED 08/27/2018 ARAM VAZQUEZINE E SUPERINTENDENT MARINE OIL TERMINAL Ot J42 UNSPECIFIED CHRONIC BRONCHITIS 08/27/2018 ARAM VAZQUEZINE E SUPERINTENDENT MARINE OIL TERMINAL Ot J45.909 UNSPECIFIED ASTHMA, UNCOMPLICATED 08/27/2018 ARAM VAZQUEZINE E SUPERINTENDENT MARINE OIL TERMINAL Ot J98.4 OTHER DISORDERS OF LUNG 08/27/2018 ARAM VAZQUEZINE E SUPERINTENDENT MARINE OIL TERMINAL Ot G25.81 RESTLESS LEGS SYNDROME 08/27/2018 ARAM VAZQUEZINE E SUPERINTENDENT MARINE OIL TERMINAL Ot G47.10 HYPERSOMNIA, UNSPECIFIED 08/27/2018 ARAM VAZQUEZINE E SUPERINTENDENT MARINE OIL TERMINAL Ot J42 UNSPECIFIED CHRONIC BRONCHITIS 08/27/2018 ARAM VAZQUEZINE E SUPERINTENDENT MARINE OIL TERMINAL Ot J45.909 UNSPECIFIED ASTHMA, UNCOMPLICATED 08/27/2018 TAYLORARAM SORENSONINE E SUPERINTENDENT MARINE OIL TERMINAL Ot J98.4 OTHER DISORDERS OF LUNG 08/27/2018 TAYLORARAM SORENSONINE E SUPERINTENDENT MARINE OIL TERMINAL Ot G25.81 RESTLESS LEGS SYNDROME 08/27/2018 NORMA VAZQUEZ E SUPERINTENDENT MARINE OIL TERMINAL Ot G47.10 HYPERSOMNIA, UNSPECIFIED 08/27/2018 NORMA VAZQUEZ SUPERINTENDENT MARINE OIL TERMINAL Ot J42 UNSPECIFIED CHRONIC BRONCHITIS 08/27/2018 NORMA VAZQUEZ SUPERINTENDENT MARINE OIL TERMINAL Ot J45.909 UNSPECIFIED ASTHMA, UNCOMPLICATED 08/27/2018 ARAM VAZQUEZINE Juanito SUPERINTENDENT MARINE OIL TERMINAL Ot J98.4 OTHER DISORDERS OF LUNG 09/17/2018 ARAM VAZQUEZINE E SUPERINTENDENT MARINE OIL TERMINAL Ot G25.81 RESTLESS LEGS SYNDROME 09/17/2018 NORMA VAZQUEZ E SUPERINTENDENT MARINE OIL TERMINAL Ot G47.10 HYPERSOMNIA, UNSPECIFIED 09/17/2018 NORMA VAZQUEZ SUPERINTENDENT MARINE OIL TERMINAL Ot J42 UNSPECIFIED CHRONIC BRONCHITIS 09/17/2018 NORMA VAZQUEZ SUPERINTENDENT MARINE OIL TERMINAL Ot J45.909 UNSPECIFIED ASTHMA, UNCOMPLICATED 09/17/2018 ARAM VAZQUEZINE E SUPERINTENDENT MARINE OIL TERMINAL Ot J98.4 OTHER DISORDERS OF LUNG 09/18/2018 ARAM VAZQUEZINE E SUPERINTENDENT MARINE OIL TERMINAL Ot G25.81 RESTLESS LEGS SYNDROME 09/18/2018 ARAM VAZQUEZINE E SUPERINTENDENT MARINE OIL TERMINAL Ot G47.10 HYPERSOMNIA, UNSPECIFIED 09/18/2018 ARAM VAZQUEZINE E SUPERINTENDENT MARINE OIL TERMINAL Ot J42 UNSPECIFIED CHRONIC BRONCHITIS 09/18/2018 NORMA VAZQUEZ E SUPERINTENDENT MARINE OIL TERMINAL Ot J45.909 UNSPECIFIED ASTHMA, UNCOMPLICATED 09/18/2018 ARAM VAZQUEZINE E SUPERINTENDENT MARINE OIL TERMINAL Ot G25.81 RESTLESS LEGS SYNDROME 09/18/2018 NORMA VAZQUEZ SUPERINTENDENT MARINE OIL TERMINAL Ot G47.10 HYPERSOMNIA, UNSPECIFIED 09/18/2018 ARAM VAZQUEZINE E SUPERINTENDENT MARINE OIL TERMINAL Ot J42 UNSPECIFIED CHRONIC BRONCHITIS 09/18/2018 ARAM VAZQUEZINE E SUPERINTENDENT MARINE OIL TERMINAL Ot J45.909 UNSPECIFIED ASTHMA, UNCOMPLICATED 09/18/2018 NORMA VAZQUEZ SUPERINTENDENT MARINE OIL TERMINAL Ot G25.81 RESTLESS LEGS SYNDROME 09/18/2018 NORMA VAZQUEZ SUPERINTENDENT MARINE OIL TERMINAL Ot G47.10 HYPERSOMNIA, UNSPECIFIED 09/18/2018 ARAM VAZQUEZINE E SUPERINTENDENT MARINE OIL TERMINAL Ot J42 UNSPECIFIED CHRONIC BRONCHITIS 09/18/2018 ARAM VAZQUEZINE E SUPERINTENDENT MARINE OIL TERMINAL Ot J45.909 UNSPECIFIED ASTHMA, UNCOMPLICATED 09/18/2018 ARAM VAZQUEZINE E SUPERINTENDENT MARINE OIL TERMINAL Ot J98.4 OTHER DISORDERS OF LUNG 09/18/2018 NORMA VAZQUEZ SUPERINTENDENT MARINE OIL TERMINAL Ot G25.81 RESTLESS LEGS SYNDROME 09/18/2018 NORMA VAZQUEZ SUPERINTENDENT MARINE OIL TERMINAL Ot G47.10 HYPERSOMNIA, UNSPECIFIED 09/18/2018 NORMA VAZQUEZ SUPERINTENDENT MARINE OIL TERMINAL Ot J42 UNSPECIFIED CHRONIC BRONCHITIS 09/18/2018 ARAM VAZQUEZINE E SUPERINTENDENT MARINE OIL TERMINAL Ot J45.909 UNSPECIFIED ASTHMA, UNCOMPLICATED 09/18/2018 ARAM VAZQUEZINE Juanito SUPERINTENDENT MARINE OIL TERMINAL Ot J98.4 OTHER DISORDERS OF LUNG 09/19/2018 NORMA VAZQUEZ SUPERINTENDENT MARINE OIL TERMINAL Ot G25.81 RESTLESS LEGS SYNDROME 09/19/2018 NORMA VAZQUEZ SUPERINTENDENT MARINE OIL TERMINAL Ot G47.10 HYPERSOMNIA, UNSPECIFIED 09/19/2018 NORMA VAZQUEZ SUPERINTENDENT MARINE OIL TERMINAL Ot J42 UNSPECIFIED CHRONIC BRONCHITIS 09/19/2018 NORMA VAZQUEZ SUPERINTENDENT MARINE OIL TERMINAL Ot J45.909 UNSPECIFIED ASTHMA, UNCOMPLICATED 09/19/2018 ARAM VAZQUEZINE Juanito SUPERINTENDENT MARINE OIL TERMINAL Ot G25.81 RESTLESS LEGS SYNDROME 09/19/2018 NORMA VAZQUEZ SUPERINTENDENT MARINE OIL TERMINAL Ot G47.10 HYPERSOMNIA, UNSPECIFIED 09/19/2018 ARAM VAZQUEZINE E SUPERINTENDENT MARINE OIL TERMINAL Ot J42 UNSPECIFIED CHRONIC BRONCHITIS 09/19/2018 ARAM VAZQUEZINE E SUPERINTENDENT MARINE OIL TERMINAL Ot J45.909 UNSPECIFIED ASTHMA, UNCOMPLICATED 10/06/2018 ARAM VAZQUEZINE Juanito SUPERINTENDENT MARINE OIL TERMINAL Ot G25.81 RESTLESS LEGS SYNDROME 10/06/2018 NORMA VAZQUEZ SUPERINTENDENT MARINE OIL TERMINAL Ot G47.10 HYPERSOMNIA, UNSPECIFIED 10/06/2018 TAYLOR, NORMA E SUPERINTENDENT MARINE OIL TERMINAL Ot J42 UNSPECIFIED CHRONIC BRONCHITIS 10/06/2018 TAYLOR, NORMA E SUPERINTENDENT MARINE OIL TERMINAL Ot J45.909 UNSPECIFIED ASTHMA, UNCOMPLICATED 10/06/2018 TAYLOR, NORMA E SUPERINTENDENT MARINE OIL TERMINAL Ot J98.4 OTHER DISORDERS OF LUNG 10/07/2018 TAYLOR, NORMA E SUPERINTENDENT MARINE OIL TERMINAL Ot G25.81 RESTLESS LEGS SYNDROME 10/07/2018 TAYLOR NORMA E SUPERINTENDENT MARINE OIL TERMINAL Ot G47.10 HYPERSOMNIA, UNSPECIFIED 10/07/2018 TAYLOR NORMA E SUPERINTENDENT MARINE OIL TERMINAL Ot J42 UNSPECIFIED CHRONIC BRONCHITIS 10/07/2018 TAYLOR, NORMA E SUPERINTENDENT MARINE OIL TERMINAL Ot J45.909 UNSPECIFIED ASTHMA, UNCOMPLICATED 10/07/2018 TAYLOR, NORMA E SUPERINTENDENT MARINE OIL TERMINAL Ot J98.4 OTHER DISORDERS OF LUNG 12/19/2018 RUPESH CONRAD [id number] Hyperglycemia 12/19/2018 RUPESH CONRAD 817619 Hyperglycemia 12/19/2018 RUPESH CONRAD 607381 Hyperglycemia 12/19/2018 KREHBWALDEMAR, RUPESH FERRARA 039639 Hyperglycemia 12/19/2018 KREHBWALDEMAR, RUPESH FERRARA 532310 Hyperglycemia 12/19/2018 KREHBWALDEMAR, RUPESH FERRARA 810108 Hyperglycemia 12/19/2018 RUPESH CONRAD R73.9 Hyperglycemia, unspecified 12/19/2018 STANFORDHBRUPESH MEDEIROS R73.9 Hyperglycemia, unspecified 12/19/2018 RUPESH CONRAD R73.9 Hyperglycemia, unspecified 12/19/2018 STANFORDHBWALDEMAR, URPESH FERRARA R73.9 Hyperglycemia, unspecified 12/29/2018 TOM PEREZ V 563565 Hyperglycemia 12/29/2018 TOM PEREZ V E11.65 Type [...] R73.9 Hyperglycemia, unspecified 12/29/2018 TOM PEREZ 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 12/29/2018 [...] MALONEY R73.9 Hyperglycemia, unspecified 05/05/2019 JOLLY SOTELO [id number] Hypertension 05/05/2019 JOLLY SOTELO 640 Foot Numbness 05/05/2019 JOLLY SOTELO 192088 Hypertension 05/05/2019 JOLLY SOTELO 640 Foot Numbness 05/05/2019 JOLLY SOTELO 984804 Hypertension 05/05/2019 JOLLY SOTELO 640 Foot Numbness 05/05/2019 JOLLY SOTELO 640 Foot Numbness 05/05/2019 JOLLY SOTELO 640 Foot Numbness 05/05/2019 JOLLY SOTELO 640 Foot Numbness 05/05/2019 JOLLY SOTELO 640 Foot Numbness 05/05/2019 OJLLY SOTELO 640 Foot Numbness 05/05/2019 JOLLY SOTELO M25.57 1 Pain in right ankle and joints of right 05/05/2019 JOLLY SOTELO M25.57 1 Pain in right ankle and joints of right 06/05/2019 GRUPO HI V 564218 Loss of Consciousness 06/05/2019 GRUPO HI V [...] diabetes mellitus with hyperglycemia (HCC) 06/22/2019 IRMA SCHILLING F E66. 01 Morbid (severe) obesity due [...] Acute and chronic respiratory failure with hypoxia ([facility]) 06/22/2019 IRMA SCHILLING F M79. 7 Fibromyalgia 06/22/2019 IRMA SCHILLING F T38.0X5A Adverse effect of glucocorticoids and sy nthetic analogues, initial encounter 06/22/2019 IRMA SCHILLING F Z68. 43 Body mass index (BMI) 50.0-59.9, adult (HCC) 06/22/2019 IRMA SCHILLING F Z79. 4 penitentiary (current) use of insulin (HCC) 06/22/2019 IRMA SCHILLING F Z79. 890 Hormone replacement therapy 06/22/2019 IRMA SCHILLING F Z79. 899 Other exterminator termite (current) drug therapy 06/22/2019 IRMA SCHILLING F Z87. 891 Personal history of nicotine dependence 06/22/2019 IRMA SCHILLING F Z90. 49 Acquired absence of other specified parts of digestive tract 06/22/2019 IRMA SCHILLING F Z99. 81 Dependence on supplemental oxygen 06/22/2019 IRMA SCHILLING V E11. 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) 09/08/2019 V I10 Essent ial (primary) hypertension 12/08/2019 TAYLOR, NORMA E SUPERINTENDENT [employer] OIL TERMINAL Ot G25.81 RESTLESS LEGS SYNDROME 12/08/2019 TAYLOR, NORMA E SUPERINTENDENT MARINE OIL TERMINAL Ot G47.10 HYPERSOMNIA, UNSPECIFIED 12/08/2019 TAYLOR, NORMA E SUPERINTENDENT MARINE OIL TERMINAL Ot J42 UNSPECIFIED CHRONIC BRONCHITIS 12/08/2019 TAYLOR, NORMA E SUPERINTENDENT MARINE OIL TERMINAL Ot J45.909 UNSPECIFIED ASTHMA, UNCOMPLICATED 12/08/2019 TAYLOR, NORMA E SUPERINTENDENT MARINE OIL TERMINAL Ot G25.81 RESTLESS LEGS SYNDROME 12/08/2019 TAYLOR, NORMA E SUPERINTENDENT MARINE OIL TERMINAL Ot G47.10 HYPERSOMNIA, UNSPECIFIED 12/08/2019 TAYLOR, NORMA E SUPERINTENDENT MARINE OIL TERMINAL Ot J42 UNSPECIFIED CHRONIC BRONCHITIS 12/08/2019 TAYLOR, NORMA E SUPERINTENDENT MARINE OIL TERMINAL Ot J45.909 UNSPECIFIED ASTHMA, UNCOMPLICATED 12/08/2019 TAYLOR, NORMA E SUPERINTENDENT MARINE OIL TERMINAL Ot G25.81 RESTLESS LEGS SYNDROME 12/08/2019 TAYLOR, NORMA E SUPERINTENDENT MARINE OIL TERMINAL Ot G47.10 HYPERSOMNIA, UNSPECIFIED 12/08/2019 TAYLOR, NORMA E SUPERINTENDENT MARINE OIL TERMINAL Ot J42 UNSPECIFIED CHRONIC BRONCHITIS 12/08/2019 TAYLOR, NORMA E SUPERINTENDENT MARINE OIL TERMINAL Ot J45.909 UNSPECIFIED ASTHMA, UNCOMPLICATED 12/08/2019 TAYLOR, NORMA E SUPERINTENDENT MARINE OIL TERMINAL Ot J98.4 OTHER DISORDERS OF LUNG 12/08/2019 TAYLOR, NORMA E SUPERINTENDENT MARINE OIL TERMINAL Ot G25.81 RESTLESS LEGS SYNDROME 12/08/2019 TAYLOR, NORMA E SUPERINTENDENT MARINE OIL TERMINAL Ot G47.10 HYPERSOMNIA, UNSPECIFIED 12/08/2019 TAYLOR, NORMA E SUPERINTENDENT MARINE OIL TERMINAL Ot J42 UNSPECIFIED CHRONIC BRONCHITIS 12/08/2019 TAYLOR, NORMA E SUPERINTENDENT MARINE OIL TERMINAL Ot J45.909 UNSPECIFIED ASTHMA, UNCOMPLICATED 12/08/2019 NORMA VAZQUEZ APRN Ot J98.4 OTHER DISORDERS OF LUNG 12/11/2019 NATE BASSETT APRN Ot E03 .9 HYPOTHYROIDISM, UNSPECIFIED 12/11/2019 NATE BASSETT APRN Ot E11.40 TYPE 2 DIABETES MELLITUS WITH DIABETIC N 12/11/2019 NATE BASSETT APRN Ot E66.09 OTHER OBESITY DUE TO EXCESS CALORIES 12/11/2019 NATE BASSETT APRN Ot E78.00 PURE HYPERCHOLESTEROLEMIA, UNSPECIFIED 12/11/2019 NATE BASSETT APRN Ot G43.909 MIGRAINE, UNSP, NOT INTRACTABLE, WITHOUT 12/11/2019 NATE BASSETT APRN Ot I10 ESSENTIAL (PRIMARY) HYPERTENSION 12/11/2019 NATE BASSETT APRN Ot I25.10 ATHSCL HEART DISEASE OF [place] CORONARY 12/11/2019 NATE BASSETT APRN Ot I25 .2 OLD MYOCARDIAL INFARCTION 12/11/2019 NATE BASSETT APRN Ot J44 .9 CHRONIC OBSTRUCTIVE PULMONARY DISEASE, U 12/11/2019 NATE BASSETT APRN Ot L98 .9 DISORDER OF THE SKIN AND SUBCUTANEOUS TI 12/11/2019 NATE BASSETT APRN Ot R21 RASH AND OTHER NONSPECIFIC SKIN ERUPTION 12/11/2019 NATE BASSETT APRN Ot S60.861A INSECT BITE (NONVENOMOUS) OF RIGHT WRIST 12/11/2019 NATE BASSETT APRN Ot W57.XXXA BIT/STUNG BY NONVENOM INSECT OTH NONVE 12/11/2019 NATE BASSETT APRN Ot Z68.43 BODY MASS INDEX (BMI) 50.0-59.9, ADULT 12/11/2019 NATE BASSETT APRN Ot 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 08/05/2019 REF62 AMB REFERRAL TO ORTHOPEDIC SURGERY 08/05/2019 LAB17 COMP REHENSIVE METABOLIC PANEL 09/03/2019 [id number] CB C WITH AUTO DIFFERENTIAL 09/03/2019 [id number] CBC AND DIFFERENTIAL 09/03/2019 Results Test Result [...] CELL DISTRIBUTION WIDTH 14.6 % 11 .9-15.5 [id number] 6.7 10E9/L 3.5-10.5 2816700 2.68 10E9/L 0.90-2.90 2064327 0.62 10E9/L 0.30-0.90 2889826 0.19 10E9/L 0.05-0.50 8555018 3.17 10E9/L 1.70-7.00 1661210 0.04 10E9/L 0.00-0.30 3007571 0 % PT T APTT - 12/12/16 [...] CELL DISTRIBUTION WIDTH 14.7 % 11 .9-15.5 9494024 8.8 10E9/L 3.5-10.5 7302169 3.46 10E9/L 0.90-2.90 9398900 0.78 10E9/L 0.30-0.90 3908394 0.37 10E9/L 0.05-0.50 1332047 4.09 10E9/L 1.70-7.00 4565423 0.07 10E9/L 0.00-0.30 8822607 0 % IRON SATURATION - 12/20/16 14:16 [...] CELL DISTRIBUTION WIDTH 14.1 % 11 .9-15.5 6144904 8.5 10E9/L 3.5-10.5 6901423 2.60 10E9/L 0.90-2.90 1818956 0.64 10E9/L 0.30-0.90 5927405 0.17 10E9/L 0.05-0.50 2792970 5.06 10E9/L 1.70-7.00 4039685 0.02 10E9/L 0.00-0.30 1438212 0 % COMPREHENSIVE METABOLIC PANEL - 02/05/17 [...] 7-25 CREATININE 0.74 mg/dL 0.50-1.10 eGFR NON-AFR. LIBYAN 98 mL/min/1.73m2 > OR = 60 eGFR [...] Negative Urine-Blood Negative Negative Urine-Color Yellow Colorless-Lt. [place] ow Urine-Epithelial Cells 0-5/HPF Urine-Glucose 2+ Negative Urine-Ketones Negative Negative Urine-Leukocytes Negative Negative Urine-Nitrite Negative Negative Urine-Other Urine Saved if Culture Need ed (48hrs from time of collection) Urine-pH 6.5 5-8.5 Urine-Protein Negative Negative Urine-RBC Negative Urine-Specific [place] 1.010 1.000-1 .030 Urine-WBC Rare/HPF Urobilinogen 0.2 [...] 5:58 THYROID STIMULATING HORMONE 6.78 u[iU]/mL 0.35-4.94 [id number] - 07/25/18 15:58 [id number] 45.9 ug/mL 50.0-100.0 Complete urinalysis with reflex [...] culture - 07/25/18 16:03 Bacterial urine culture [id number] NRG COLONY COUNT >100,000/ML NRG FTX;REPORTABLE SUSCEPTIBILITY REPORTED 07-27-18, 12 06 NRG L Sensitivity Panel - 07/25/18 16:03 Gentamicin susceptibility [...] ncentration <= NRG Nitrofurantoin susceptibility test by tn nimum inhibitory concentration 32 NRG Amoxicillin and [...] 08/04/18 05:46 Myoglobin, serum 80.6 ng/mL 10.0-92.0 [id number] - 08/04/18 05:46 [id number] 27.4 ug/mL 50.0-100.0 Bacterial blood culture - [...] EU/dL 0.2 WBC UA 0-3 /hpf 0-3 [id number] Negative Negative TROPONIN I - 12/29/18 13:59 [...] CELL DISTRIBUTION WIDTH 15.8 % 11 .9-15.5 1842507 8.0 10E9/L 3.5-10.5 2603799 2.39 10E9/L 0.90-2.90 3066706 0.59 10E9/L 0.30-0.90 1488250 0.17 10E9/L 0.05-0.50 2354844 4.79 10E9/L 1.70-7.00 7266771 0.07 10E9/L 0.00-0.30 8315479 0 % SCAN - 12/29/18 14:07 ANISOCYTOSIS 1+ POLYCHROMASIA 1+ [id number] Rare [id number] Results confirmed by microscopic exam BLOOD GAS, [...] CELL DISTRIBUTION WIDTH 15.1 % 11 .9-15.5 9156182 8.3 10E9/L 3.5-10.5 0552087 3.07 10E9/L 0.90-2.90 1365012 0.54 10E9/L 0.30-0.90 9868012 0.20 10E9/L 0.05-0.50 7207333 4.47 10E9/L 1.70-7.00 8831501 0.04 10E9/L 0.00-0.30 2128017 0 % BETA-HYDROXYBUTYRATE, SERUM - 06/05/19 1 4:35 7777479 1.1 mg/dL <2.8 URINALYSIS, REFLEX CULTURE IF [...] EU/dL 0.2 WBC UA 0-3 /hpf 0-3 4016583 Negative Negative 2742940 2 /lpf BLOOD GAS, VENOUS - 06/05/19 [...] mmol/L 136-145 BLOOD CULTURE - 06/17/19 14:39 0898088 No Growth after 5 days incubation RESPIRATORY PANEL PCR - 06/17/19 16:12 INFLUENZA A PCR Negative Negative 7289763 Negative Negative 4198269 Negative Negative 0310050 Negative Negative 8309700 Negative Negative 9942004 Positive Negative 2006254 Negative Negative 3277483 Negative Negative 1843271 Negative Negative 5838730 Negative Negative 5549061 Negative Negative 3221246 Negative Negative 5842041 Negative Negative 2950791 Negative Negative 7276681 Negative Negative 3044100 Negative Negative 7596201 Negative Negative BORDETELLA PARAPERTUSSIS Negative Negat lilia BLOOD CULTURE - 06/17/19 16:29 6428294 No Growth after 5 days incubation PERFORM [...] EU/dL 0.2 WBC UA 0-3 /hpf 0-3 5964236 1+ Negative PERFORM POINT OF CARE GLUCOSE [...] CELL DISTRIBUTION WIDTH 15.0 % 11 .9-15.5 9379547 4.6 10E9/L 3.5-10.5 7779311 0 % SCAN - 06/18/19 05:59 ANISOCYTOSIS 1+ 1632556 Results confirmed by microscopic exam MANUAL WBC [...] % 0-8 SEGMENTED NEUTROPHILS-REL(DIFF) 85 % 40-70 9187368 4.2 10E9/L 1.7-7.0 BASIC METABOLIC PANEL - [...] CELL DISTRIBUTION WIDTH 15.2 % 11 .9-15.5 8309946 7.1 10E9/L 3.5-10.5 3302350 0.72 10E9/L 0.90-2.90 3410079 0.33 10E9/L 0.30-0.90 1195028 0.00 10E9/L 0.05-0.50 2297604 5.99 10E9/L 1.70-7.00 3565420 0.02 10E9/L 0.00-0.30 9198060 0 % BASIC METABOLIC PANEL - 06/19/19 [...] CELL DISTRIBUTION WIDTH 15.4 % 11 .9-15.5 7176167 5.2 10E9/L 3.5-10.5 8692883 1.13 10E9/L 0.90-2.90 8763498 0.33 10E9/L 0.30-0.90 9696338 0.00 10E9/L 0.05-0.50 6301770 3.71 10E9/L 1.70-7.00 2841596 0.02 10E9/L 0.00-0.30 0842986 0 % PROCALCITONIN - 06/20/19 07:07 PROCALCITONIN [...] CELL DISTRIBUTION WIDTH 15.1 % 11 .9-15.5 1160337 3.4 10E9/L 3.5-10.5 5993203 1.46 10E9/L 0.90-2.90 7986779 0.27 10E9/L 0.30-0.90 0703052 0.00 10E9/L 0.05-0.50 7764919 1.65 10E9/L 1.70-7.00 2680876 0.02 10E9/L 0.00-0.30 3872035 0 % SCAN - 06/21/19 06:41 ANISOCYTOSIS 1+ 5917612 Results confirmed by microscopic exam BASIC METABOLIC [...] CELL DISTRIBUTION WIDTH 14.9 % 11 .9-15.5 9418914 5.8 10E9/L 3.5-10.5 6265154 2.63 10E9/L 0.90-2.90 8141151 0.53 10E9/L 0.30-0.90 0605953 0.00 10E9/L 0.05-0.50 0739173 2.59 10E9/L 1.70-7.00 2548191 0.05 10E9/L 0.00-0.30 7600368 0 % SCAN - 06/22/19 09:31 RBC MORPHOLOGY RBC morphology appears normal 7167089 Results confirmed by microscopic exam BASIC METABOLIC [...] - 0 12:15 INFLUENZA A&B ANTIGEN-IN HOUSE NRG Influenza A: Presumptive Neg for the pres ence of Influenza A Antigen NRG Influenza B: Presumptive Neg for the pres ence of Influenza B Antigen NRG Urinalysis w/microscopic - 08/27/19 12:2 4 URINE [...] 08/27/19 13:45 Fingerstick Blood Sugar 376 mg/dL - Basic Metabolic Panel - 08/27/19 14:27 BUN 3 mg/dL 5-21 CHLORIDE 101 mmol/L 100-112 CARBON DIOXIDE 24 mEq/L 18-30 POTASSIUM 3.2 mmol/L 3.4-5.2 SODIUM 137 mmol/L 135-150 GFR ESTIMATE > 60 mL/Min > 60 Anion Gap 12 mmol/L 8-11 Creatinine 0.73 mg/dL 0.60-1.30 Glucose 295 mg/dL 99 Calcium 8.8 mg/dL 8.6-10.5 Fingerstick Blood Sugar - 08/27/19 14:38 Fingerstick Blood Sugar 264 mg/dL Fingerstick Blood Sugar - 08/27/19 15:37 Fingerstick Blood Sugar 253 mg/dL 7099 Lactic Acid - 08/27/19 16:18 Lactate 2.3 [...] 08/27/19 17:28 Fingerstick Blood Sugar 300 mg/dL 70- Basic Metabolic Panel - 08/27/19 18:09 BUN 5 mg/dL 5-21 CHLORIDE 98 mmol/L 100-112 CARBON DIOXIDE 23 mEq/L 18-30 POTASSIUM 3.2 mmol/L 3.4-5.2 SODIUM 134 mmol/L 135-150 GFR ESTIMATE > 60 mL/Min > 60 Anion Gap 13 mmol/L 8-11 Creatinine 0.90 mg/dL 0.60-1.30 Glucose 367 mg/dL 70-99 Calcium 8.2 mg/dL 8.6-10.5 Fingerstick Blood Sugar - 08/27/19 18:33 Fingerstick Blood Sugar 342 mg/dL Stool Pathogen Panel - 08/27/19 19:00 BACTERIA [...] Normal gastrointestinal microbiota NRG Stool Consistency: (R) [place] 6: Mushy, flu ffy pieces, ragged edges [...] Creatinine 0.73 mg/dL 0.60-1.30 Glucose 257 mg/dL 70-99 Calcium 8.3 mg/dL 8.6-10.5 Fingerstick Blood Sugar [...] CELL DISTRIBUTION WIDTH 14.3 % 11 .9-15.5 9844183 7.4 10*3/uL 3.5-10.5 5109389 3.10 10*3/uL 0.90-2.90 9185961 0.65 10*3/uL 0.30-0.90 9118517 0.26 10*3/uL 0.05-0.50 5464090 3.38 10*3/uL 1.70-7.00 3769295 0.03 10*3/uL 0.00-0.30 BASIC METABOLIC PANEL - [...] targeted exams where dose is indication/reason for exam).DLP 846 mGycOMPARISON: NoneFINDINGS:BRAIN PARENCHYMA: No evidence of [...] acute intracranial abnormality is identified.Electronically signed by Vernon Posada: 06/05/2019 3:18 PM Radiology Report from [...] of her right elbow. Radiology Report from [id number] on 16:11:00 [facility] [address] [place] [address] XRay Report Signed Patient: Felipe Haddad MR#: [id number] : 1970 Acct:[id number] Age/Sex: 49 / F ADM Date: 10/20/19 Loc: ED Attending Provider: Ordering Provider: Radha Ross Date of Service: 10/20/19 Procedure(s): XR ribs RT min 3V w CXR1V Accession Number(s): [id number] PA view chest and two views right [...] appearing bilateral rib fractures noted. 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 Pain in the top of the foot and 1st and 2nd toe. Comparison: 04/01/2019 study from the [facility] system. 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 Visit Date/Time Discharge Status Pt. 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 [id number] 08/17/2017 05:17:23 Document Registration [id number] 08/16/2017 05:17:12 Document Registration [id number] 08/16/2017 05:17:11 Document Registration [id number] 12/08/2019 18:25:00 12/08/2019 18:55 :00 DIS Outpatient Ronak Laurent [id number] 08/08/2018 00:46:00 08/08/2018 23:59: 59 CLS Outpatient [facility] gladis ER [id number] 03/21/2018 15:27:00 03/21/2018 16:39: 00 DIS Outpatient Mehran [facility] ER [id number] 02/27/2018 16:44:00 02/27/2018 18:25: 00 DIS Outpatient Bernarda Bliss [facility] ER [id number] 02/19/2018 16:27:00 02/19/2018 20:16: 00 DIS Outpatient Ronak Laurent [facility] ER [id number] 02/11/2018 00:14:00 02/11/2018 03:00: 00 DIS Outpatient FABIAN GARCÍA [facility] ER [id number] 02/11/2018 01:59:50 Document Registration [id number] 02/13/2017 12:26:24 Document Registration [id number] 11/15/2016 12:52:43 Document Registration [id number] 10/17/2016 13:27:32 Document Registration [id number] 08/28/2016 08:55:14 Document Registration [id number] 05/05/2019 14:07:19 2018 16:11:00 DIS Emergency JOLLY SOTELO U at [address] [id number] 01/07/2019 16:45:45 2018 21:10:00 DIS Emergency WILMER MALONEY U at [address] [id number] 12/19/2018 15:34:37 2018 19:37:00 DIS Emergency RUPESH CONRAD at [address] [id number] 11/05/2019 11:56:00 14:37:00 DIS Emergency Ajit Wayne [facility] ED diabetic problem [id number] 10/20/2019 15:17:00 16:50:00 DIS Emergency Radha Ross (Express) [facility] ED Chest Pain [id number] 09/12/2019 14:07:00 23:59:59 CLS Outpatient Gina Shoemaker (Exps) AMBAlishaRHCEXP 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 [id number] 08/27/2019 15:20:00 12:36:00 DIS Inpatient OYadiel sevilla [facility] CDU diabetic problem [id number] 11/15/2016 10:01:07 11/15/2016 23: 59:59 CLS Outpatient [facility] [id number] 11/14/2016 00:00:00 11/14/2016 23: 59:59 CLS Outpatient [facility] [id number] 10/17/2016 13:27:32 10/17/2016 23: 59:59 CLS Outpatient [facility] [id number] 09/05/2016 00:00:00 09/05/2016 23: 59:59 CLS Outpatient [facility] [id number] 09/05/2016 00:00:00 09/05/2016 23: 59:59 CLS Outpatient [facility] [id number] 08/30/2016 00:00:00 08/30/2016 23: 59:59 CLS Outpatient [facility] [id number] 08/30/2016 00:00:00 08/30/2016 23: 59:59 CLS Outpatient [facility] [id number] 08/28/2016 08:55:14 08/28/2016 23: 59:59 CLS Outpatient [facility] [id number] 10/02/2018 14:20:00 10/02/2018 23:59: 59 [facility] [id number] 03/27/2018 12:40:00 Document Registration [id number] 01/29/2018 10:00:00 Document Registration [id number] 08/01/2017 17:20:00 Document Registration [id number] 05/15/2017 15:00:00 Document Registration [id number] 08/28/2018 09:28:16 ACT Unknown [id number] 12/08/2019 19:37:00 020 20:21:00 DIS Outpatient NATE BASSETT [employer] [facility] ER RASH [id number] 10/22/2018 16:59:00 23:59:59 CLS Preadmit NORMA VAZQUEZ [employer] [facility] SLEEP MARIA ISABEL G47.33 [id number] 10/07/2018 08:15:00 23:59:59 CLS Preadmit NORMA VAZQUEZ [employer] [facility] PULM ASTHMA [id number] 08/27/2018 10:00:00 00:01:00 DIS Outpatient NORMA VAZQUEZ [employer] [facility] PULM ASTHMA [id number] 09/18/2018 19:47:00 07:38:00 DIS Outpatient NORMA VAZQUEZ [employer] [facility] SLEEP SUSPECTED SLEEP APNEA,SLEEP DISORDER,ASTHMA [id number] 08/13/2018 11:23:00 23:59:59 CLS Outpatient NORMA VAZQUEZ [employer] [facility] LAB RESTRICTIVE QUINTEN G DISEASE [id number] 08/04/2018 09:40:00 21:07:00 DIS Inpatient DIONICIO SALAS, CAMILA Ceron [facility] 4TH COPD EXACERBATION,CHF,I DDM [id number] 07/25/2018 15:51:00 17:38:00 DIS Emergency TAMEKA KEYS, LEATHA Shah [facility] ER UNREPONSIVE [id number] 06/06/2018 20:00:00 23:59:59 CLS Preadmit NORMA VAZQUEZ [employer] [facility] SLEEP ASTHMA, CHRONIC BRONCHITIS, HYPERSOMNIA [id number] 05/27/2018 12:11:00 018 23:59:59 CLS Outpatient NORMA VAZQUEZ [employer] [facility] RT ASTHMA,CHRONIC BRONCHITIS,HYPERSOMNIA,RESTLESS LEG [id number] 05/14/2018 15:05:00 018 23:59:59 CLS Outpatient NORMA VAZQUEZ [employer] [facility] LAB ASTHMA [id number] 10/29/2019 07:14:41 0 23:59:59 CLS Outpatient MIKY BECERRA [facility] EMPOR [id number] 09/29/2019 11:37:06 0 23:59:59 CLS Outpatient [facility] EMPOR [id number] 09/29/2019 10:31:55 0 23:59:59 CLS Outpatient MIKY BECERRA [facility] EMPOR [id number] 09/03/2019 10:48:46 0 23:59:59 CLS Outpatient [facility] EMPORXR [id number] 09/03/2019 10:39:39 0 23:59:59 CLS Outpatient [facility] EMPOR [id number] 09/03/2019 09:21:09 0 23:59:59 CLS Outpatient VAHID BOATENG [facility] EMPOR [id number] 08/05/2019 11:41:47 0 23:59:59 CLS Outpatient [facility] EMPOR [id number] 08/05/2019 09:29:39 0 23:59:59 CLS Outpatient TASNEEMVAHID MOSES [facility] EMPOR [id number] 06/17/2019 14:01:02 9 15:00:00 DIS Inpatient IRMA SCHILLING [facility] [id number] 06/05/2019 14:22:06 9 18:48:00 DIS Emergency GRUPO HI [facility] [id number] 12/29/2018 13:24:38 9 16:23:00 DIS Emergency TOM PEREZ [facility] [id number] 04/06/2017 15:40:18 7 23:59:59 CLS Outpatient [facility] [id number] 04/06/2017 15:38:43 7 23:59:59 CLS Outpatient [facility] 823 [id number] 04/06/2017 15:10:13 7 23:59:59 CLS Outpatient JUAN JOSE ANN Gutier[place] [id number] 03/07/2017 11:27:38 7 23:59:59 CLS Outpatient ERNESTINA BRAY [facility] [id number] 02/19/2017 12:56:06 7 23:59:00 DIS Outpatient ANN INGRAM [facility] CRU [id number] 02/18/2017 22:08:39 7 00:03:00 DIS Emergency TOM PEREZ [facility] [id number] 02/15/2017 12:43:26 7 23:59:59 CLS Outpatient [facility] CODE [id number] 02/05/2017 20:36:04 7 22:21:00 DIS Emergency WILLIS SCHAFFER [facility] [id number] 01/25/2017 13:49:36 7 23:59:59 CLS Outpatient NATALIE MILES [place] [id number] 01/12/2017 18:47:23 7 19:33:00 DIS Emergency BRENT BRAVO [facility] [id number] 01/03/2017 07:56:04 7 23:59:00 DIS Outpatient NATALIE MILES [facility] [id number] 12/20/2016 14:06:48 7 23:59:59 CLS Outpatient [place] [id number] 12/20/2016 12:32:09 7 23:59:59 CLS Outpatient ANN INGRAM [place] [id number] 12/12/2016 19:17:11 7 21:07:00 DIS Emergency ABDULKADIR JAVED [facility] [id number] 12/01/2016 14:40:35 7 23:59:59 CLS Outpatient BOB SCOTT [facility] [id number] 10/16/2016 15:36:13 7 15:37:00 DIS Emergency [facility] [id number] 08/21/2016 09:57:38 7 23:59:59 CLS Outpatient [facility] 90 [id number] 10/09/2019 13:18:47 Document Registration [id number] 09/01/2019 11:09:02 Document Registration [id number] 06/20/2019 16:35:39 Document Registration [id number] 06/17/2019 15:41:32 Document Registration [id number] 06/05/2019 15:01:18 Document Registration [id number] 02/09/2017 12:57:29 Document Registration [id number] 12/12/2016 19:21:19 Document Registration [id number] 11/15/2016 10:57:02 11/15/2016 23: 59:00 DIS Outpatient [facility] FNRTCL [id number] 11/15/2016 10:55:35 11/15/2016 10: 56:00 [id number]17/2016 14:40:55 10/17/2016 23: 59:00 [id number]2016 13:39:49 09/01/2016 23: 59:00 [facility] [id number] 08/28/2016 11:04:23 08/28/2016 23: 59:00 DIS Outpatient [facility] [id number] 04/17/2014 17:32:00 04/17/2014 20: 09:00 DIS Emergency TEDDY CAPUTO [facility] FED [id number] 04/17/2014 00:57:00 04/17/2014 04: 03:00 DIS Emergency NELLIE ALEJO [facility] FED [id number] 04/15/2014 22:57:00 04/16/2014 00: 43:00 DIS Emergency [facility] FED [id number] 03/03/2014 09:55:30 03/03/2014 23: 59:00 DIS Outpatient LIZY DAILEY [facility] FCRTST [id number] 01/06/2014 15:33:14 01/06/2014 23: 59:00 DIS Outpatient LIZY DAILEY [facility] [id number] 12/16/2013 00:54:23 12/16/2013 03: 50:00 DIS Emergency NELLIE ALEJO [facility] [id number] 11/26/2013 10:45:27 11/26/2013 23: 59:00 DIS Outpatient LIZY DAILEY [facility] [id number] 10/27/2013 13:04:20 10/27/2013 23: 59:00 DIS Outpatient LIZY DAILEY [facility]
[2019-12-19] MEDS ORDERED: NS IV 500 ML 500 ML IV ONE (00:40)
[2019-12-19 00:49] LABS: BASOPHILS % (AUTO) 0 % (0-10); EOSINOPHILS # (AUTO) 0.3 10^3/uL (0.0-0.3); EOSINOPHILS % (AUTO) 3 % (0-10); HEMATOCRIT 42 % (35-52); HEMOGLOBIN 14.2 G/DL (11.5-16.0); LYMPHOCYTES # (AUTO) 3.3 X 10^3 (1.0-4.0); LYMPHOCYTES % (AUTO) 39 % (12-44); MEAN CORPUSCULAR HEMOGLOBIN 30 PG (25-34); MEAN CORPUSCULAR HGB CONC 34 G/DL (32-36); MEAN CORPUSCULAR VOLUME 87 FL (80-99); MEAN PLATELET VOLUME 9.3 FL (7.4-10.4); MONOCYTES # (AUTO) 0.8 X 10^3 (0.0-1.0); MONOCYTES % (AUTO) 10 % (0-12); NEUTROPHILS % (AUTO) 48 % (42-75); PLATELET COUNT 395 10^3/uL (130-400); RED CELL DISTRIBUTION WIDTH 14.7 % (10.0-14.5); WHITE BLOOD COUNT 8.4 10^3/uL (4.3-11.0)
--- NOTE | 2019-12-19 01:00 | ED Abdominal Pain ---
General Chief Complaint: Abdominal/GI Problems Stated Complaint: ABD PAIN Nursing Triage Note: BROUGHT IN BY [facility] C/O RIGHT SIDED ABDOMINAL PAIN, HIGH GLUCOSE. Sepsis Screen: No Definite Risk Source of Information: Patient Exam Limitations: No Limitations History of Present Illness Date Seen by Provider: Dec 19, 2019 Time Seen by Provider: 00:35 Initial Comments Here with report of right-sided lower abdominal pain as well as elevated blood sugar. Pain has been going on tonight. She has had 3 normal bowel movements today. Denies injury. Denies blood in her stool. Has nausea but no vomiting. Denies fever or chills. Denies breathing problems. States her blood sugars have been quite high. She is to start an insulin pump soon that she has to get the training. Does not define high blood sugar but states they've all been high. Her lowest one recently has been 194 by EMS which surprised her. Timing/Duration: 1-3 Hours Severity/Quality: Moderate, Severe Location: RLQ Radiation: Back, Flank Activities at Onset: None Modifying Factors: Improves With Movement, Improves With Palpation, Improves With Resting Associated Symptoms: Back Pain; No Chest Pain, No Fever/Chills Allergies and Home Medications Allergies Coded Allergies: butorphanol (Unverified Adverse Reaction, Severe, 08/04/18) HALLUCINATIONS Penicillins (Unverified Adverse Reaction, Unknown, NAUSEA, 08/04/18) Uncoded Allergies: SYMBALTA (Adverse Reaction, Unknown, NAUSEA, 05/27/18) Home Medications Albuterol Sulfate 2.5 Mg/3 Ml Vial.neb, 2.5 MG INH Q6H, (Reported) Albuterol Sulfate 6.7 Gm Hfa.aer.ad, 2 PUFF INH Q6H PRN for SHORTNESS OF BREATH, (Reported) Atorvastatin Calcium 40 Mg Tablet, 40 MG PO HS, (Reported) Azithromycin 250 Mg Tablet, 250 MG PO DAILY Prescribed by: DEMARCO LOPEZ on 08/05/182106 Diclofenac Sodium 100 Gm Gel..gram., 1 GM TOP DAILY PRN, (Reported) Divalproex Sodium 500 Mg Tab.er.24h, 500 MG PO BID, (Reported) Fluticasone/Vilanterol 1 Each Blst.w.dev, 1 EACH IH DAILY, (Reported) Furosemide 20 Mg Tablet, 20 MG PO DAILY, (Reported) Insulin Aspart 100 Unit/1 Ml Susp, 30 UNITS SQ TIDWM, (Reported) Insulin Determir 1,000 Units/10 Ml Soln, 27 UNITS SQ BID, (Reported) Levothyroxine Sodium 125 Mcg Tablet, 125 MCG PO DAILY, (Reported) Metoprolol Tartrate 100 Mg Tablet, 100 MG PO BID, (Reported) Mupirocin Calcium 15 Gm Cream..g., 15 GM TP BID Prescribed by: NATE BASSETT on 12/08/192001 Omeprazole 20 Mg Capsule.dr, 20 MG PO DAILY, (Reported) Potassium Chloride 10 Meq Capsule.er, 10 MEQ PO DAILY, (Reported) Pramipexole Di-HCl 0.5 Mg Tablet, 0.5 MG PO HS, (Reported) Prednisone 10 Mg Tab, 0 PO DAILY Take 6 tabs(60mg)daily, decrease by 1 tab(10mg) every other day. Prescribed by: DEMARCO LOPEZ on 08/05/182106 Pregabalin 200 Mg Capsule, 200 MG PO BID, (Reported) Sumatriptan Succinate 100 Mg Tablet, 100 MG PO PRN PRN for MIGRAINE, (Reported) Triamcinolone Acet 15 Gm Cr, 1 GM TP BID Prescribed by: NATE BASSETT on 12/08/192001 Zolmitriptan 5 Mg [place], 5 MG NA DAILY, (Reported) Zolpidem Tartrate 5 Mg Tablet, 5 MG PO HS PRN for SLEEP, (Reported) Patient Home Medication List Home Medication List Reviewed: Yes Review of Systems Review of Systems Constitutional: see HPI; No chills, No fever EENTM: No Symptoms Reported Respiratory: No Symptoms Reported Cardiovascular: No Symptoms Reported Gastrointestinal: Abdominal Pain; Denies Constipated, Denies Diarrhea; Nausea; Denies Vomiting Genitourinary: Frequency; Denies Pain Musculoskeletal: back pain; No neck pain Skin: no symptoms reported Psychiatric/Neurological: Anxiety; Denies Headache, Denies Numbness, Denies Weakness Endocrine: Increased Thrist, Increased Urine All Other Systems Reviewed Negative Unless Noted: Yes Past Hfiyhiu-Odmpgo-Icttys Hx Past Med/Social Hx: Reviewed Nursing Past Med/Soc Hx Patient Social History Alcohol Use: Rarely Uses Recreational Drug Use: No 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 Smoking Status: Former Smoker Type Used: Cigarettes Former Smoker, Quit: Jul 08, 1990 2nd Hand Smoke Exposure: Yes Recent Foreign Travel: No Contact w/Someone Who Travel: No Recent Infectious Disease Expo: No Recent Hopitalizations: No Physical Abuse: No Sexual Abuse: No Mistreated: No Fear: No Immunizations Up To Date Tetanus Booster (TDap): Unknown PED Vaccines UTD: Yes Date of Influenza Vaccine: Jul 25, 2018 Seasonal Allergies Seasonal Allergies: No Past Medical History Surgeries: Yes Cardiac, Section, Gallbladder, Orthopedic, Tubal Ligation Respiratory: Yes (RESTRICTIVE LUNG DISEASE; LEFT CHEST DEFORMITY) Asthma, Pneumonia, Chronic Bronchitis, Sleep Apnea, COPD Currently Using CPAP: No Currently Using BIPAP: No Cardiac: Yes Coronary Artery Disease, Heart Attack, High Cholesterol, Hypertension Neurological: Yes Headaches /Migraines, Neuropathy, Seizure Disorder : No Reproductive Disorders: No Genitourinary: Yes UTI-Chronic Gastrointestinal: Yes Ulcer Musculoskeletal: Yes Fibromyalgia, Scoliosis, Chronic Back Pain Endocrine: Yes (MORBID OBESITY) Diabetes, Insulin dep, Hypothyroidsim HEENT: Yes Cancer: No Psychosocial: Yes Anxiety, Depression Integumentary: No Blood Disorders: No Family Medical History Reviewed Nursing Family Hx Physical Exam Vital Signs Vital Signs - First Documented 12/19/19 00:29 Temp 36.5 Pulse 103 Resp 18 B/P (MAP) 143/119 (127) Pulse Ox 95 O2 Delivery Room Air Capillary Refill : Less Than 3 Seconds Height/Weight/BMI Height: 5'0.00" Weight: 340lbs. 0.4oz. 153.740230ns; 58.00 BMI Method:Stated General Appearance: WD/WN, mild distress, obese HEENT: PERRL/EOMI, pharynx normal Neck: full range of motion, supple Respiratory: lungs clear, normal breath sounds Cardiovascular: regular rate, rhythm, no murmur Gastrointestinal: distended, tenderness (right lower quadrant, right flank and back) Extremities: non-tender, no calf tenderness, pedal edema Back: CVA tenderness (R); No muscle spasm Neurologic/Psychiatric: alert, oriented x 3 Skin: normal color, warm/dry Progress/Results/Core Measures Results/Orders Lab Results Laboratory Tests Test 12/19/19 00:35 12/19/19 00:50 Range/Units White Blood Count 8.4 4.3-11.0 10^3/uL Red Blood Count 4.78 4.35-5.85 10^6/uL Hemoglobin 14.2 11.5-16.0 G/DL Hematocrit 42 35-52 % Mean Corpuscular Volume 87 80-99 FL Mean Corpuscular Hemoglobin 30 25-34 PG Mean Corpuscular Hemoglobin Concent 34 32-36 G/DL Red Cell Distribution Width 14.7 H 10.0-14.5 % Platelet Count 395 130-400 10^3/uL Mean Platelet Volume 9.3 7.4-10.4 FL Neutrophils (%) (Auto) 48 42-75 % Lymphocytes (%) (Auto) 39 12-44 % Monocytes (%) (Auto) 10 0-12 % Eosinophils (%) (Auto) 3 0-10 % Basophils (%) (Auto) 0 0-10 % Neutrophils # (Auto) 4.0 1.8-7.8 X 10^3 Lymphocytes # (Auto) 3.3 1.0-4.0 X 10^3 Monocytes # (Auto) 0.8 0.0-1.0 X 10^3 Eosinophils # (Auto) 0.3 0.0-0.3 10^3/uL Basophils # (Auto) 0.0 0.0-0.1 10^3/uL Sodium Level 135 135-145 MMOL/L Potassium Level 4.3 3.6-5.0 MMOL/L Chloride Level 98 98-107 MMOL/L Carbon Dioxide Level 25 21-32 MMOL/L Anion Gap 12 5-14 MMOL/L Blood Urea Nitrogen 10 7-18 MG/DL Creatinine 0.68 0.60-1.30 MG/DL Estimat Glomerular Filtration Rate > 60 BUN/Creatinine Ratio 15 Glucose Level 172 H 70-105 MG/DL Calcium Level 10.0 8.5-10.1 MG/DL Corrected Calcium 9.9 8.5-10.1 MG/DL Phosphorus Level 2.6 2.3-4.7 MG/DL Magnesium Level 1.6 1.6-2.4 MG/DL Total Bilirubin 0.4 0.1-1.0 MG/DL Aspartate Amino Transf (AST/SGOT) 33 5-34 U/L Alanine Aminotransferase (ALT/SGPT) 30 0-55 U/L Alkaline Phosphatase 161 H 40-136 U/L C-Reactive Protein High Sensitivity 2.17 H 0.00-0.50 MG/DL Total Protein 7.4 6.4-8.2 GM/DL Albumin 4.1 3.2-4.5 GM/DL Urine Color YELLOW Urine Clarity CLEAR Urine pH 6.0 5-9 Urine Specific [place] 1.010 L 1.016-1.022 Urine Protein NEGATIVE NEGATIVE Urine Glucose (UA) 3+ H NEGATIVE Urine Ketones NEGATIVE NEGATIVE Urine Nitrite NEGATIVE NEGATIVE Urine Bilirubin NEGATIVE NEGATIVE Urine Urobilinogen 0.2 < = 1.0 MG/DL Urine Leukocyte Esterase NEGATIVE NEGATIVE Urine RBC (Auto) NEGATIVE NEGATIVE Urine RBC RARE /HPF Urine WBC NONE /HPF Urine Squamous Epithelial Cells NONE /HPF Urine Crystals PRESENT H /LPF Urine Triple Phosphate Crystals RARE H /LPF Urine Bacteria NEGATIVE /HPF Urine Casts NONE /LPF Urine Mucus NEGATIVE /LPF Urine Yeast FEW H /HPF Urine Culture Indicated NO My Orders Orders - MARYLIN BAUTISTA MD Cbc With Automated Diff (12/19/19 00:40) Comprehensive Metabolic Panel (12/19/19 00:40) Hs C Reactive Protein (12/19/19 00:40) Magnesium (12/19/19 00:40) Ua Culture If Indicated (12/19/19 00:40) Phosphorus (12/19/19 00:40) Ed Iv/Invasive Line Start (12/19/19 00:40) Ns Iv 500 Ml (Sodium Chloride 0.9%) (12/19/19 00:40) Ct Abd/Pelv W (Appendicitis) (12/19/19 01:12) Iohexol Injection (Omnipaque 350 Mg/Ml 1 (12/19/19 01:30) Received Contrast (Hold Metformin- Contr (12/19/19 01:30) Ns (Ivpb) (Sodium Chloride 0.9% Ivpb Bag (12/19/19 01:30) Fluconazole Tablet (Ed Only) (Diflucan T (12/19/19 02:19) Medications Given in ED Current Medications Medications Dose Ordered Sig/Alex Route Start Time Stop Time Status Last Admin Dose Admin Iohexol 100 ml ONCE ONCE IV 12/19/19 01:30 12/19/19 01:31 UNV 12/19/19 01:57 100 ML Sodium Chloride 100 ml ONCE ONCE IV 12/19/19 01:30 12/19/19 01:31 UNV 12/19/19 01:57 80 ML Sodium Chloride 500 ml @ 0 mls/hr Q0M ONCE IV 6/19/20 00:40 12/19/19 00:42 DC 12/19/19 00:49 0 MLS/HR Vital Signs/I&O 12/19/19 00:29 Temp 36.5 Pulse 103 Resp 18 B/P (MAP) 143/119 (127) Pulse Ox 95 O2 Delivery Room Air Blood Pressure Mean: 127 Progress Progress Note : Progress Note Seen and evaluated. IV by EMS. They did give morphine 3 mg IV which decreased her pain from 20 to 7. Normal saline 500 mL bolus ordered. We will check basic labs and UA. Monitor patient. 0223: CT scan and labs do not show any acute findings. She does have yeast infection which is likely related to persistent elevated blood sugars although that is not significantly abnormal right now either. Diflucan 150 mg by mouth as well as hydrocodone 5/325 one tab by mouth given. Given that there is no significant findings otherwise, patient will be discharged. Discharged home with return precautions. Patient verbalize understanding instructions and agreement with plan. Diagnostic Imaging Diagonstic Imaging: CT Plain Films/CT/US/NM/MRI: abdomen, pelvis Comments No acute findings in the right lower quadrant. Hepatomegaly with severe steatosis. Otherwise unremarkable CT scan. Reviewed: Reviewed [place] Study, Reviewed by Me Departure Impression Primary Impression: Right lower quadrant abdominal pain Additional Impressions: Vaginal yeast infection Uncontrolled diabetes mellitus Qualified Codes: E11.65 - Type 2 diabetes mellitus with hyperglycemia Disposition: HOME, SELF-CARE Condition: Stable Departure-Patient Inst. Decision time for Depature: 02:25 Referrals: NO,LOCAL PHYSICIAN (PCP/Family) Primary Care Physician Patient Instructions: Acute Abdomen (Belly Pain), Adult (DC), Vulvovaginal Yeast Infection Add. Discharge Instructions: All discharge instructions reviewed with patient and/or family. Voiced understanding. Continue to manage her blood sugars and avoid carbohydrates or sweet snacks or fluids. Follow-up with your Dr. in a few days for recheck. Continue home medications as previously prescribed. Follow-up within 24 hours if not improving either here or with your doctor. Return for worse pain, fever, vomiting, weakness, breathing problems or other concerns as needed. MARYLIN BAUTISTA MD Dec 19, 2019 01:00
[2019-12-19 01:02] LABS: ALBUMIN 4.1 GM/DL (3.2-4.5); CHLORIDE 98 MMOL/L (98-107); POTASSIUM 4.3 MMOL/L (3.6-5.0); SODIUM 135 MMOL/L (135-145)
[2019-12-19 01:04] LABS: GLUCOSE 172 MG/DL (70-105); TOTAL PROTEIN 7.4 GM/DL (6.4-8.2)
[2019-12-19 01:05] LABS: CARBON DIOXIDE 25 MMOL/L (21-32)
[2019-12-19 01:06] LABS: BILIRUBIN,TOTAL 0.4 MG/DL (0.1-1.0)
[2019-12-19 01:08] LABS: ALKALINE PHOSPHATASE 161 U/L (40-136); CREATININE SERUM 0.68 MG/DL (0.60-1.30); GFR ESTIMATED > 60
[2019-12-19 01:09] LABS: BUN/CREATININE RATIO 15
[2019-12-19 01:11] LABS: ALANINE AMINOTRANSFERASE 30 U/L (0-55); MAGNESIUM 1.6 MG/DL (1.6-2.4)
[2019-12-19 01:13] LABS: BILIRUBIN,URINE NEGATIVE (NEGATIVE); CLARITY,URINE CLEAR; COLOR,URINE YELLOW; GLUCOSE, URINE (UA) 3+ (NEGATIVE); KETONES,URINE NEGATIVE (NEGATIVE); LEUKOCYTE ESTERASE ,URINE NEGATIVE (NEGATIVE); NITRITE,URINE NEGATIVE (NEGATIVE); PROTEIN,URINE NEGATIVE (NEGATIVE)
[2019-12-19 01:25] LABS: BACTERIA,URINE NEGATIVE /HPF; RBC,URINE RARE /HPF; TRIPLE PHOSPHATE CRYSTAL,UR RARE /LPF
[2019-12-19 01:26] LABS: YEAST,URINE FEW /HPF
[2019-12-19] MEDS ORDERED: NS 100 ML (IVPB) BAG IV ONE (01:30)
[2019-12-19] MEDS ORDERED: HOLD METFORMIN - RECEIVED CONTRAST 20 ML VIAL IV SCH (01:30)
[2019-12-19] MEDS ORDERED: IOHEXOL 350 MG/ML 100 ML (OMNIPAQUE 350) VIAL IV ONE (01:30)
[2019-12-19 01:58] LABS: PHOSPHORUS 2.6 MG/DL (2.3-4.7)
[2019-12-19] MEDS ORDERED: FLUCONAZOLE 150 MG TABLET (ED ONLY) PO STA (02:19)
[2019-12-19] MEDS ORDERED: HYDROcodone/APAP 5 MG/325 MG (LORTAB) TAB PO ONE (02:30)
[2019-12-19 02:33] VITALS: BP 144/92
--- NOTE | 2019-12-19 08:20 | Diagnostic Imaging Report ---
PROCEDURE: CT abdomen and pelvis with contrast, rule out appendicitis. TECHNIQUE: Multiple contiguous axial images were obtained through the abdomen and pelvis after the administration of intravenous contrast. All CT scans use one or more of the following dose optimizing techniques: automated exposure control, MA and/or KvP adjustment based on a patient size and exam type, or iterative reconstruction. DATE: December 19, 2019. COMPARISON: None. INDICATION: 49-year-old female, right lower quadrant pain. FINDINGS: The visualized portions of the lung bases are clear. The heart is not enlarged. There is no pericardial effusion. There is diffuse fatty infiltration of the liver. There is no identified liver lesion. The main, right, and left portal veins are patent. The patient is status post cholecystectomy. There is no biliary ductal dilation. The main pancreatic duct is not abnormally dilated. Unremarkable appearance of the pancreatic parenchyma. The spleen is normal in size. The adrenal glands are unremarkable. Unremarkable appearance of the renal parenchyma. The urinary collecting systems are not distended. There is no identified renal or ureteral stone. The urinary bladder is unremarkable. Unremarkable CT appearance of the uterus and adnexa. The intestinal tract is not distended. The appendix is unremarkable. There is no free intraperitoneal air. There is no drainable fluid collection. There is no free pelvic fluid. There is no identified abnormally enlarged lymph node in the abdomen or pelvis which meets CT size criteria for adenopathy. There are mild atherosclerotic calcifications noted. There are laminectomy changes of the lower lumbar spine. There is no identified acute bony abnormality. IMPRESSION: CT ABDOMEN AND PELVIS. 1. No identified acute abnormality in the abdomen or pelvis. 2. Diffuse fatty infiltration of the liver. Dictated by: Dictated on workstation # [id number]
== END 2019-12-19 02:33 | disposition home or self-care (01) ==
LOC: EDUNIT# 00:27 → ER 00:28
DX: B37.3 Candidiasis of vulva and vagina (principal); E11.40 Type 2 diabetes mellitus with diabetic neuropathy, unspecified; J44.9 Chronic obstructive pulmonary disease, unspecified; I10 Essential (primary) hypertension; E78.00 Pure hypercholesterolemia, unspecified; I25.2 Old myocardial infarction; I25.10 Atherosclerotic heart disease of native coronary artery without angina pectoris; G40.909 Epilepsy, unspecified, not intractable, without status epilepticus; G43.909 Migraine, unspecified, not intractable, without status migrainosus; E66.01 Morbid (severe) obesity due to excess calories; E03.9 Hypothyroidism, unspecified; F41.9 Anxiety disorder, unspecified; F32.9 Major depressive disorder, single episode, unspecified; Z88.0 Allergy status to penicillin; Z88.8 Allergy status to other drugs, medicaments and biological substances; Z79.51 Long term (current) use of inhaled steroids; Z79.52 Long term (current) use of systemic steroids; Z87.891 Personal history of nicotine dependence; Z79.4 Long term (current) use of insulin
CPT/HCPCS: 36415; 74177; 80053; 81000; 83735; 84100; 85025; 86141

== ENCOUNTER → 2020-01-08 | Outpatient (CLI) | payer MEDICAID ==
--- NOTE | 2020-01-08 12:35 | Diagnostic Imaging Report ---
PROCEDURE: CT left lower extremity without contrast. TECHNIQUE: Multiple contiguous axial images were obtained through the left lower extremity without the use of intravenous contrast. Sagittal and coronal reformations were then performed. Auto Exposure Controls were utilized during the CT exam to meet ALARA standards for radiation dose reduction. INDICATION: Ankle surgery two years ago. Left ankle pain. Inversion of the ankle. COMPARISON: None. FINDINGS: No acute fracture is seen in the left ankle. There is arthrodesis of the subtalar joint, with bony fusion posteriorly involving at least 80% of the posterior subtalar joint. There is some bony fusion anteriorly in the subtalar joint as well. There does appear to be arthrodesis across the talonavicular joint as well with at least 50% bony bridging. Three screws transfix the talonavicular joint, two of which extend into the intermediate cuneonavicular joint, which does not demonstrate bony bridging. There does appear to be fusion across the medial and intermediate cuneiforms. There is varus angulation of the forefoot. The ankle mortise appears symmetric. No significant tibiotalar joint effusion is seen. There are mild degenerative changes in the tibiotalar joint. The tendons and ligaments are not well evaluated by CT. No complete tear is seen of the peroneal or flexor tendons, although there is streak artifact from the hardware which partially obscures the tendons. There is skin thickening about the left ankle. Soft tissue density is seen medially, measuring 2.9 x 3.2 cm on axial imaging. No definite fluid collection is seen. IMPRESSION: 1. Postsurgical changes in the left ankle with bony fusion across the posterior subtalar and talonavicular joints. No hardware fracture or loosening is seen. 2. Forefoot valgus and degenerative changes in the left midfoot and hindfoot with no acute osseous abnormality identified. 3. Skin thickening about the left ankle with soft tissue density seen medially. No definite fluid collection is seen on this noncontrast CT. Dictated by: Dictated on workstation # [id number]
== END ==
LOC: RAD 11:26
PROVIDERS: ATTEND Orthopaedic Surgery Foot and Ankle Surgery
DX: M19.072 Primary osteoarthritis, left ankle and foot (principal); M21.072 Valgus deformity, not elsewhere classified, left ankle; M79.89 Other specified soft tissue disorders; Z98.1 Arthrodesis status; Z98.890 Other specified postprocedural states
CPT/HCPCS: 73700

== ENCOUNTER 2020-03-17 05:44 | Outpatient (CLI) | payer MEDICAID ==
[~2020-03-17] VITALS: Ht 152.4 cm; Wt 136.4 kg
== END 2020-03-17 13:12 | disposition home or self-care (01) ==
LOC: PREOP 05:44
PROVIDERS: ATTEND Specialist
DX: Z01.818 Encounter for other preprocedural examination (principal)

== ENCOUNTER 2020-03-19 10:00 | Day surgery (SDC) | payer MEDICAID ==
[~2020-03-19] VITALS: Ht 152 cm; Wt 136.0 kg
[2020-03-19 10:05] VITALS: BP 199/110
[2020-03-19] MEDS ORDERED: PILOCARPINE 4% OPHTH SOLN (ISOPTO CARPINE) 15 ML BTL OP ONE (10:15)
[2020-03-19] MEDS ORDERED: TIMOLOL MALEATE 0.5% 5 ML (TIMOPTIC) BTL OU ONE (10:15)
[2020-03-19] MEDS ORDERED: TETRACAINE 0.5% OPHTH SOLN 4 ML BTL (SINGLE DOSE ONLY) OU ONE (10:15)
--- NOTE | 2020-03-19 10:49 | Ophthalmologist Pre-Op Note ---
Pre-Operative Progress Note H&P Reviewed The H&P was reviewed, patient examined and no changes noted. Date H&P Reviewed: Mar 19, 2020 Time H&P Reviewed: 10:49 Pre-Op Dx Narrow angle glaucoma, Right Eye JOSIAS GOETZ MD Mar 19, 2020 10:49
[2020-03-19 11:10] VITALS: BP 199/110
--- NOTE | 2020-03-19 11:28 | Ophthalmology Operative Report ---
YAG Iridotomy PREOPERATIVE DIAGNOSIS: Narrow angle glaucoma, Right Eye POSTOPERATIVE DIAGNOSIS: Narrow angle glaucoma, Right Eye PROCEDURE: YAG Iridotomy right eye SURGEON: Gómez Goetz ANESTHESIA: Topical anesthesia COMPLICATIONS: None ESTIMATED BLOOD LOSS: Minimal DESCRIPTION OF PROCEDURE: After proper informed consent was obtained, that patients right eye received one drop of tetracaine and one drop of pilocarpine 4%. The patient received 1 drop of timolol 0.5% five minutes after the pilocarpine. The iridotomy lens was placed on the patients eye. The patient was moved to the YAG laser and using a power of [ 7.0] millijoules [ 5] bursts were used to fashion a patent iridotomy. The patient tolerated the procedure well without complications and the patients pressure was [ ] shortly after the laser GÓMEZ GOETZ MD Mar 19, 2020 11:28
== END 2020-03-19 11:10 | disposition home or self-care (01) ==
LOC: SDC 10:00
PROVIDERS: ATTEND Specialist
DX: H40.20X0 Unspecified primary angle-closure glaucoma, stage unspecified (principal); E03.9 Hypothyroidism, unspecified; E78.00 Pure hypercholesterolemia, unspecified; D64.9 Anemia, unspecified; J45.909 Unspecified asthma, uncomplicated; M19.90 Unspecified osteoarthritis, unspecified site; Z79.899 Other long term (current) drug therapy; Z88.0 Allergy status to penicillin; Z88.8 Allergy status to other drugs, medicaments and biological substances; Z88.5 Allergy status to narcotic agent; Z87.891 Personal history of nicotine dependence; Z85.41 Personal history of malignant neoplasm of cervix uteri

== ENCOUNTER 2020-03-24 05:41 | Outpatient (CLI) | payer MEDICAID ==
[~2020-03-24] VITALS: Ht 152 cm; Wt 136.0 kg
== END 2020-03-24 13:26 ==
LOC: PREOP 05:41
PROVIDERS: ATTEND Specialist
DX: Z01.818 Encounter for other preprocedural examination (principal)

== ENCOUNTER 2020-04-02 08:20 | Day surgery (SDC) | payer MEDICAID ==
[~2020-04-02] VITALS: Ht 152 cm; Wt 136.0 kg
[2020-04-02] MEDS ORDERED: TETRACAINE 0.5% OPHTH SOLN 4 ML BTL (SINGLE DOSE ONLY) OU ONE (08:30)
[2020-04-02] MEDS ORDERED: TIMOLOL MALEATE 0.5% 5 ML (TIMOPTIC) BTL OU ONE (08:30)
[2020-04-02] MEDS ORDERED: PILOCARPINE 4% OPHTH SOLN (ISOPTO CARPINE) 15 ML BTL OP ONE (08:30)
[2020-04-02 08:31] VITALS: BP 159/84
--- NOTE | 2020-04-02 08:44 | Ophthalmologist Pre-Op Note ---
Pre-Operative Progress Note H&P Reviewed The H&P was reviewed, patient examined and no changes noted. Date H&P Reviewed: Apr 02, 2020 Time H&P Reviewed: 08:44 Pre-Op Dx PREOPERATIVE DIAGNOSIS: Narrow angle glaucoma, Left Eye POSTOPERATIVE DIAGNOSIS: Narrow angle glaucoma, Left Eye PROCEDURE: YAG Iridotomy left eye SURGEON: Gómez Goetz ANESTHESIA: Topical anesthesia COMPLICATIONS: None ESTIMATED BLOOD LOSS: Minimal DESCRIPTION OF PROCEDURE: After proper informed consent was obtained, that patients left eye received one drop of tetracaine and one drop of pilocarpine 4%. The patient received 1 drop of timolol 0.5% five minutes after the pilocarpine. The iridotomy lens was placed on the patients eye. The patient was then placed at the argon laser and using a power of [ ] milliwatts, duration of [ ], and spot size of [ ], [ ] burst were used to flatten the iris. After this the patient was moved to the YAG laser and using a power of [ ] millijoules [ ] bursts were used to fashion a patent iridotomy. The patient tolerated the procedure well without complications and the patients pressure was [ ] shortly after the laser GÓMEZ GOETZ MD Apr 02, 2020 08:44
[2020-04-02 08:55] VITALS: BP 159/84
--- NOTE | 2020-04-02 09:14 | Ophthalmology Operative Report ---
YAG Iridotomy PREOPERATIVE DIAGNOSIS: Narrow angle glaucoma, Left Eye POSTOPERATIVE DIAGNOSIS: Narrow angle glaucoma, Left Eye PROCEDURE: YAG Iridotomy left eye SURGEON: Gómez Goetz ANESTHESIA: Topical anesthesia COMPLICATIONS: None ESTIMATED BLOOD LOSS: Minimal DESCRIPTION OF PROCEDURE: After proper informed consent was obtained, that patients left eye received one drop of tetracaine and one drop of pilocarpine 4%. The patient received 1 drop of timolol 0.5% five minutes after the pilocarpine. The iridotomy lens was placed on the patients eye. The patient was moved to the YAG laser and using a power of [ 7.0] millijoules [7 ] bursts were used to fashion a patent iridotomy. The patient tolerated the procedure well without complications. GÓMEZ GOETZ MD Apr 02, 2020 09:14
== END 2020-04-02 08:55 | disposition home or self-care (01) ==
LOC: SDC 08:20
PROVIDERS: ATTEND Specialist
DX: H40.20X0 Unspecified primary angle-closure glaucoma, stage unspecified (principal); Z87.891 Personal history of nicotine dependence; Z88.6 Allergy status to analgesic agent; Z88.8 Allergy status to other drugs, medicaments and biological substances; I10 Essential (primary) hypertension; J45.909 Unspecified asthma, uncomplicated; M19.91 Primary osteoarthritis, unspecified site; E11.9 Type 2 diabetes mellitus without complications; G40.909 Epilepsy, unspecified, not intractable, without status epilepticus; E03.9 Hypothyroidism, unspecified; E78.00 Pure hypercholesterolemia, unspecified; D64.9 Anemia, unspecified

== ENCOUNTER → 2020-05-03 | Outpatient (CLI) | payer MEDICAID | LOC: CARD 12:40 | PROVIDERS: ATTEND Orthopaedic Surgery Foot and Ankle Surgery | DX: I10 Essential (primary) hypertension (principal) | CPT/HCPCS: 93005 ==

== ENCOUNTER → 2020-05-04 | Outpatient (CLI) | payer MEDICAID | LOC: LABNPT 06:24 | PROVIDERS: ATTEND Orthopaedic Surgery Foot and Ankle Surgery | DX: I10 Essential (primary) hypertension (principal) ==

== ENCOUNTER 2020-10-14 07:26 | Inpatient (IN) | payer MEDICAID ==
[~2020-10-14] VITALS: Ht 152 cm; Wt 176.8 kg
[2020-10-14] MEDS ORDERED: RT-ALBUTEROL/IPRATROPIUM 3 ML (DUONEB) VIAL ONE (07:35)
[2020-10-14 08:01] LABS: BASOPHILS % (AUTO) 0 % (0-10); EOSINOPHILS # (AUTO) 0.3 10^3/uL (0.0-0.3); EOSINOPHILS % (AUTO) 3 % (0-10); HEMATOCRIT 43 % (35-52); HEMOGLOBIN 12.9 g/dL (11.5-16.0); LYMPHOCYTES # (AUTO) 2.7 10^3/uL (1.0-4.0); LYMPHOCYTES % (AUTO) 31 % (12-44); MEAN CORPUSCULAR HEMOGLOBIN 28 pg (25-34); MEAN CORPUSCULAR HGB CONC 30 g/dL (32-36); MEAN CORPUSCULAR VOLUME 92 fL (80-99); MEAN PLATELET VOLUME 9.3 fL (9.0-12.2); MONOCYTES # (AUTO) 0.7 10^3/uL (0.0-1.0); MONOCYTES % (AUTO) 8 % (0-12); NEUTROPHILS % (AUTO) 57 % (42-75); PLATELET COUNT 327 10^3/uL (130-400); WHITE BLOOD COUNT 8.7 10^3/uL (4.3-11.0)
[2020-10-14 08:12] LABS: ALBUMIN 3.9 GM/DL (3.2-4.5); CHLORIDE 97 MMOL/L (98-107)
[2020-10-14 08:13] LABS: POTASSIUM 3.8 MMOL/L (3.6-5.0); SODIUM 139 MMOL/L (135-145)
[2020-10-14 08:14] LABS: CALCIUM 8.6 MG/DL (8.5-10.1)
[2020-10-14 08:14] LABS: BILIRUBIN,URINE NEGATIVE (NEGATIVE); CLARITY,URINE CLEAR; COLOR,URINE YELLOW; GLUCOSE, URINE (UA) 3+ (NEGATIVE); KETONES,URINE TRACE (NEGATIVE); LEUKOCYTE ESTERASE ,URINE NEGATIVE (NEGATIVE); NITRITE,URINE NEGATIVE (NEGATIVE); PROTEIN,URINE TRACE (NEGATIVE)
[2020-10-14 08:15] LABS: GLUCOSE 222 MG/DL (70-105); TOTAL PROTEIN 7.6 GM/DL (6.4-8.2)
[2020-10-14 08:16] LABS: CARBON DIOXIDE 29 MMOL/L (21-32)
[2020-10-14 08:17] LABS: BILIRUBIN,TOTAL 0.7 MG/DL (0.1-1.0)
[2020-10-14 08:18] LABS: ALKALINE PHOSPHATASE 132 U/L (40-136)
[2020-10-14 08:19] LABS: CREATININE SERUM 0.86 MG/DL (0.60-1.30); GFR ESTIMATED > 60
[2020-10-14 08:20] LABS: BUN/CREATININE RATIO 17
--- NOTE | 2020-10-14 08:20 | ED General ---
General Chief Complaint: Respiratory Problems Stated Complaint: RESP DISTRESS Nursing Triage Note: PT PRESENTS TO ED VIA EMS FROM HOME WITH INCREASED SOA AND GENERALIZED SWELLING THAT WAS WORSE THIS AM. Nursing Sepsis Screen: No Definite Risk Source of Information: Patient, EMS, Old Records Exam Limitations: No Limitations History of Present Illness Date Seen by Provider: Oct 14, 2020 Time Seen by Provider: 07:29 Initial Comments This 50-year-old woman with known history of CHF and COPD presents to the emergency room with respiratory failure. She had been admitted at the hospital in [place] on October 11. She left AGAINST MEDICAL ADVICE on October 12. She has since been having worsening shortness of breath. She denies any fever. She has had some diarrhea but no nausea or vomiting. She is extremely edematous and obese. She does take diuretics but has not taken any yet this morning. She also uses inhaled bronchodilators. EMS applied CPAP and administered a DuoNeb treatment. Oxygen saturations improved from the 80s to 100%. Patient is still rather dyspneic and has accessory muscle use with expiration. She maintained her oxygen saturations on room air after removing CPAP but had unacceptable increased work of breathing. BiPAP was therefore initiated during initial assessment. Patient reports having a negative COVID-19 test on October 11. She received her first dose of the COVID-19 vaccine about a month ago.Her primary care provider is in [place]. Dr. Mosuqeda is her metal loader. Allergies and Home Medications Allergies Coded Allergies: duloxetine (Verified Allergy, Unknown, 03/17/20) tramadol (Verified Allergy, Unknown, 03/17/20) butorphanol (Unverified Adverse Reaction, Severe, 08/04/18) HALLUCINATIONS Penicillins (Unverified Adverse Reaction, Unknown, NAUSEA, 08/04/18) Home Medications Albuterol Sulfate 2.5 Mg/3 Ml Vial.neb, 2.5 MG INH Q6H, (Reported) Albuterol Sulfate 6.7 Gm Hfa.aer.ad, 2 PUFF INH Q6H PRN for SHORTNESS OF BREATH, (Reported) Atorvastatin Calcium 40 Mg Tablet, 40 MG PO HS, (Reported) Diclofenac Sodium 100 Gm Gel..gram., 1 GM TOP DAILY PRN, (Reported) Divalproex Sodium 500 Mg Tab.er.24h, 500 MG PO BID, (Reported) Fluticasone/Vilanterol 1 Each Blst.w.dev, 1 EACH IH DAILY, (Reported) Furosemide 20 Mg Tablet, 20 MG PO DAILY, (Reported) Insulin Aspart 100 Unit/1 Ml Susp, 30 UNITS SQ TIDWM, (Reported) Insulin Determir 1,000 Units/10 Ml Soln, 33 UNITS SQ BID, (Reported) Levothyroxine Sodium 125 Mcg Tablet, 125 MCG PO DAILY, (Reported) Metoprolol Tartrate 100 Mg Tablet, 100 MG PO BID, (Reported) Omeprazole 20 Mg Capsule.dr, 20 MG PO DAILY, (Reported) Potassium Chloride 10 Meq Capsule.er, 10 MEQ PO DAILY, (Reported) Pramipexole Di-HCl 0.5 Mg Tablet, 0.5 MG PO HS, (Reported) Pregabalin 200 Mg Capsule, 200 MG PO BID, (Reported) Sumatriptan Succinate 100 Mg Tablet, 100 MG PO PRN PRN for MIGRAINE, (Reported) Zolpidem Tartrate 5 Mg Tablet, 5 MG PO HS PRN for SLEEP, (Reported) Patient Home Medication List Home Medication List Reviewed: Yes Review of Systems Review of Systems Constitutional: no symptoms reported EENTM: no symptoms reported Respiratory: see HPI Cardiovascular: see HPI Gastrointestinal: see HPI Genitourinary: no symptoms reported : No Musculoskeletal: no symptoms reported Skin: no symptoms reported Psychiatric/Neurological: No Symptoms Reported Hematologic/Lymphatic: No Symptoms Reported Immunological/Allergic: no symptoms reported Past Khxujdq-Msadll-Wdllel Hx Past Med/Social Hx: Reviewed Nursing Past Med/Soc Hx Patient Social History Alcohol Use: Denies 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 Smoking Status: Former Smoker Type Used: Cigarettes Former Smoker, Quit: Jul 08, 1990 2nd Hand Smoke Exposure: Yes Recent Infectious Disease Expo: No Recent Hopitalizations: No Immunizations Up To Date Tetanus Booster (TDap): Unknown PED Vaccines UTD: Yes Date of Influenza Vaccine: Jul 25, 2018 Seasonal Allergies Seasonal Allergies: No Past Medical History Surgeries: Yes Cardiac, Section, Gallbladder, Orthopedic, Tubal Ligation Respiratory: Yes (RESTRICTIVE LUNG DISEASE; LEFT CHEST DEFORMITY) Asthma, Pneumonia, Chronic Bronchitis, Sleep Apnea, COPD Currently Using CPAP: No Currently Using BIPAP: No Cardiac: Yes (Congestive heart failure) Coronary Artery Disease, Heart Attack, High Cholesterol, Hypertension Neurological: Yes Headaches /Migraines, Neuropathy, Seizure Disorder Reproductive Disorders: No Genitourinary: Yes UTI-Chronic Gastrointestinal: Yes (Reports celiac disease) Ulcer Musculoskeletal: Yes Fibromyalgia, Scoliosis, Chronic Back Pain Endocrine: Yes (MORBID OBESITY) Diabetes, Insulin dep, Hypothyroidsim HEENT: Yes Cancer: No Psychosocial: Yes Anxiety, Depression Integumentary: No Blood Disorders: No Physical Exam-Suspected Sepsis Physical Exam Vital Signs Vital Signs - First Documented 10/14/20 10/14/20 07:40 07:49 Temp 36.3 Pulse 89 Resp 20 B/P (MAP) 155/107 (123) Pulse Ox 95 O2 Delivery NIV Bilevel O2 Flow Rate 21.00 Capillary Refill : Less Than 3 Seconds Blood Pressure Mean: 123 Height, Weight, BMI Height: 5'0.00" Weight: 340lbs. 0.4oz. 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 II-XII Norm as Tested Skin: normal color, warm/dry Focused Exam Lactate Level 10/14/20 07:49: Lactic Acid Level 1.51 Lactic Acid Level Laboratory Tests Test 10/14/20 07:49 Lactic Acid Level 1.51 MMOL/L (0.50-2.00) Progress/Results/Core Measures Suspected Sepsis Recent Fever Within 48 Hours: No Infection Criteria Present: Suspected New Infection New/Unexplained Altered Menta: No Sepsis Screen: No Definite Risk SIRS Temperature: Pulse: 89 Respiratory Rate: 28 Laboratory Tests 10/14/20 07:49: White Blood Count 8.7 Blood Pressure 155 /107 Mean: 123 10/14/20 07:49: Lactic Acid Level 1.51 Laboratory Tests 10/14/20 07:49: Creatinine 0.86, INR Comment 1.0, Platelet Count 327, Total Bilirubin 0.7 Results/Orders Lab Results Laboratory Tests Test 10/14/20 07:38 10/14/20 07:49 10/14/20 08:00 Range/Units Coronavirus 2019 ([place]) Not Detected Not Detecte White Blood Count 8.7 4.3-11.0 10^3/uL Red Blood Count 4.67 3.80-5.11 10^6/uL Hemoglobin 12.9 11.5-16.0 g/dL Hematocrit 43 35-52 % Mean Corpuscular Volume 92 80-99 fL Mean Corpuscular Hemoglobin 28 25-34 pg Mean Corpuscular Hemoglobin Concent 30 L 32-36 g/dL Red Cell Distribution Width 17.2 H 10.0-14.5 % Platelet Count 327 130-400 10^3/uL Mean Platelet Volume 9.3 9.0-12.2 fL Immature Granulocyte % (Auto) 1 % Neutrophils (%) (Auto) 57 42-75 % Lymphocytes (%) (Auto) 31 12-44 % Monocytes (%) (Auto) 8 0-12 % Eosinophils (%) (Auto) 3 0-10 % Basophils (%) (Auto) 0 0-10 % Neutrophils # (Auto) 5.0 1.8-7.8 10^3/uL Lymphocytes # (Auto) 2.7 1.0-4.0 10^3/uL Monocytes # (Auto) 0.7 0.0-1.0 10^3/uL Eosinophils # (Auto) 0.3 0.0-0.3 10^3/uL Basophils # (Auto) 0.0 0.0-0.1 10^3/uL Immature Granulocyte # (Auto) 0.1 0.0-0.1 10^3/uL Prothrombin Time 13.4 12.2-14.7 SEC INR Comment 1.0 0.8-1.4 Activated Partial Thromboplast Time 21 L 24-35 SEC D-Dimer 0.81 H 0.00-0.49 UG/ML Sodium Level 139 135-145 MMOL/L Potassium Level 3.8 3.6-5.0 MMOL/L Chloride Level 97 L 98-107 MMOL/L Carbon Dioxide Level 29 21-32 MMOL/L Anion Gap 13 5-14 MMOL/L Blood Urea Nitrogen 15 7-18 MG/DL Creatinine 0.86 0.60-1.30 MG/DL Estimat Glomerular Filtration Rate > 60 BUN/Creatinine Ratio 17 Glucose Level 222 H 70-105 MG/DL Lactic Acid Level 1.51 0.50-2.00 MMOL/L Calcium Level 8.6 8.5-10.1 MG/DL Corrected Calcium 8.7 8.5-10.1 MG/DL Total Bilirubin 0.7 0.1-1.0 MG/DL Aspartate Amino Transf (AST/SGOT) 19 5-34 U/L Alanine Aminotransferase (ALT/SGPT) 20 0-55 U/L Alkaline Phosphatase 132 40-136 U/L Lactate Dehydrogenase 336 H 125-220 U/L Troponin I < 0.028 <0.028 NG/ML C-Reactive Protein High Sensitivity 1.66 H 0.00-0.50 MG/DL B-Type Natriuretic Peptide 84.7 <100.0 PG/ML Total Protein 7.6 6.4-8.2 GM/DL Albumin 3.9 3.2-4.5 GM/DL Procalcitonin 0.01 <0.10 NG/ML Thyroid Stimulating Hormone (TSH) 5.99 H 0.35-4.94 UIU/ML Valproic Acid (Depakene) Level < 2.0 L 50.0-100.0 UG/ML Urine Color YELLOW Urine Clarity CLEAR Urine pH 7.0 5-9 Urine Specific [place] 1.020 1.016-1.022 Urine Protein TRACE H NEGATIVE Urine Glucose (UA) 3+ H NEGATIVE Urine Ketones TRACE H NEGATIVE Urine Nitrite NEGATIVE NEGATIVE Urine Bilirubin NEGATIVE NEGATIVE Urine Urobilinogen 1.0 < = 1.0 MG/DL Urine Leukocyte Esterase NEGATIVE NEGATIVE Urine RBC (Auto) NEGATIVE NEGATIVE Urine RBC NONE /HPF Urine WBC NONE /HPF Urine Squamous Epithelial Cells 2-5 /HPF Urine Crystals NONE /LPF Urine Bacteria NEGATIVE /HPF Urine Casts NONE /LPF Urine Mucus NEGATIVE /LPF Urine Culture Indicated CULTURE PENDING Urine Opiates Screen POSITIVE H NEGATIVE Urine Oxycodone Screen NEGATIVE NEGATIVE Urine Methadone Screen NEGATIVE NEGATIVE Urine Propoxyphene Screen NEGATIVE NEGATIVE Urine Barbiturates Screen NEGATIVE NEGATIVE Ur Tricyclic Antidepressants Screen NEGATIVE NEGATIVE Urine Phencyclidine Screen NEGATIVE NEGATIVE Urine Amphetamines Screen NEGATIVE NEGATIVE Urine Methamphetamines Screen NEGATIVE NEGATIVE Urine Benzodiazepines Screen NEGATIVE NEGATIVE Urine Cocaine Screen NEGATIVE NEGATIVE Urine Cannabinoids Screen NEGATIVE NEGATIVE Micro Results Microbiology 10/14/20 Influenza Types A,B Antigen ([facility]) - Final, Complete My Orders Orders - RADU FOY MD Albuterol/Ipra Inhalation Soln (Duoneb I (10/14/20 07:35) Cbc With Automated Diff (10/14/20 07:48) Comprehensive Metabolic Panel (10/14/20 07:48) Blood Culture (10/14/20 07:48) Sputum Culture (10/14/20 07:48) Urinalysis (10/14/20 07:48) Urine Culture (10/14/20 07:48) Protime With Inr (10/14/20 07:48) Partial Thromboplastin Time (10/14/20 07:48) Chest 1 View, Ap/Pa Only (10/14/20 07:48) Ed Iv/Invasive Line Start (10/14/20 07:48) Ed Iv/Invasive Line Start (10/14/20 07:48) Vital Signs Adult Sepsis Patie Q15M (10/14/20 07:48) O2 (10/14/20 07:48) Remove Rings In Anticipation O (10/14/20 07:48) Lactic Acid Analyzer (10/14/20 07:48) Influenza A And B Antigens (10/14/20 07:48) BNP (10/14/20 07:48) Ekg Tracing (10/14/20 07:48) Monitor-Rhythm Ecg Trace Only (10/14/20 07:48) Troponin I (10/14/20 07:48) Procalcitonin (Pct) (10/14/20 07:48) Hs C Reactive Protein (10/14/20 07:48) LDH (10/14/20 07:48) Covid 19 Inhouse Test (10/14/20 07:48) Alcantar Cath (10/14/20 07:51) Thyroid Stimulating Hormone (10/14/20 07:51) Drug Screen Stat (Urine) (10/14/20 07:54) Valproic Acid (10/14/20 09:48) Furosemide Injection (Lasix Injection) (10/14/20 10:00) Fibrin Degradation Products (10/14/20 09:53) Methylprednisolone Sod Succ (Solu-Medrol (10/14/20 10:15) Ct Angio Chest W (10/14/20 10:47) Pramipexole Tablet (Mirapex Tablet) (10/14/20 11:00) Iohexol Injection (Omnipaque 350 Mg/Ml 1 (10/14/20 11:30) Received Contrast (Hold Metformin- Contr (10/14/20 11:30) Ns (Ivpb) (Sodium Chloride 0.9% Ivpb Bag (10/14/20 11:30) Medications Given in ED Current Medications Medications Dose Ordered Sig/Alex Route Start Time Stop Time Status Last Admin Dose Admin Albuterol/ Ipratropium 3 ml STK-MED ONCE .ROUTE 10/14/20 07:35 10/14/20 07:43 DC 10/14/20 07:48 3 ML Furosemide 40 mg ONCE ONCE IVP 10/14/20 10:00 10/14/20 10:01 DC 10/14/20 10:00 40 MG Vital Signs/I&O 10/14/20 10/14/20 07:40 07:49 Temp 36.3 Pulse 89 89 Resp 20 28 B/P (MAP) 155/107 (123) Pulse Ox 95 98 O2 Delivery NIV Bilevel O2 Flow Rate 21.00 Capillary Refill : Less Than 3 Seconds Blood Pressure Mean: 123 Progress Note #1: Time: 08:44 Progress Note Patient was started on BiPAP and is stable on room air with BiPAP support. Labs are in process. An additional DuoNeb treatment was administered. COVID-19 and influenza screening swabs were negative. Progress Note #2: Time: 10:07 Progress Note Case was reviewed with Dr. Ayala and Dr. Mosqueda. We will obtain a D-dimer before transferring to the ICU. Dr. Mosqueda requested Solu-Medrol 40 mg every 6 hours. The first dose will be given in the ER. We will try for an ABG again after admission. Dr. Mosqueda also requested a 2D echocardiogram. Progress Note #3: Time: 10:53 Progress Note Patient's reports that the physicians in [place] thought Josias had celiac disease and that that is contributing to her swelling. Patient's D-dimer is modestly elevated. CT angiogram of the chest will be obtained. ECG Initial ECG Impression Date: Oct 14, 2020 Initial ECG Impression Time: 08:06 Initial ECG Rate: 84 Initial ECG Rhythm: Normal Sinus Initial ECG Intervals: Normal Initial ECG Impression: Normal Comment Normal sinus rhythm with no ST elevation or depression. No abnormal intervals or axis deviation. Diagnostic Imaging Diagonstic Imaging: Xray Plain Films/CT/US/NM/MRI: chest Comments Chest x-ray viewed by me and report reviewed. See report below: NAME: JOSIAS HADDAD [facility] REC#: [id number] PT STATUS: REG ER : 1970 PHYSICIAN: RADU FOY MD ADMIT DATE: 10/14/20/ER Draft Date of Exam:10/14/20 CHEST 1 VIEW, AP/PA ONLY INDICATION: Sepsis. Shortness of air. Generalized swelling. COMPARISON: 08/13/2018 FINDINGS: Single frontal radiographic view of the chest was obtained and demonstrates mild cardiomegaly and mild prominence of pulmonary vasculature. Lung west are moderately obscured by patient body habitus. There is, however, no large effusion or pneumothorax. Osseous structures show no acute abnormalities. IMPRESSION: 1. Mild cardiomegaly and pulmonary vascular congestion. Dictated on workstation # [id number] Dict: 10/14/20 0930 Trans: 10/14/20 0933 [facility] [id number] Interpreted by: RUPESH MDCUFFIE MD Departure Communication (Admissions) Time/Spoke to Admitting Phy: 09:55 Dr. Ayala Time/Spoke to Consulting Phy: 10:00 Dr. Mosqueda Impression Primary Impression: Respiratory failure Qualified Codes: J96.01 - Acute respiratory failure with hypoxia Additional Impressions: CHF exacerbation Qualified Codes: I50.9 - Heart failure, unspecified COPD exacerbation Morbid obesity Obesity hypoventilation syndrome Elevated d-dimer Disposition: ADMITTED INPATIENT Condition: Improved Admissions Decision to Admit Reason: Admit from ER (General) Decision to Admit/Date: Oct 14, 2020 Time/Decision to Admit Time: 07:40 Departure-Patient Inst. Referrals: NO,LOCAL PHYSICIAN (PCP/Family) Primary Care Physician RADU FOY MD Oct 14, 2020 08:20
[2020-10-14 08:22] LABS: ALANINE AMINOTRANSFERASE 20 U/L (0-55); PROTHROMBIN TIME PATIENT 13.4 SEC (12.2-14.7)
[2020-10-14 08:27] LABS: BACTERIA,URINE NEGATIVE /HPF
[2020-10-14 08:28] LABS: AMPHETAMINE SCREEN, URINE NEGATIVE (NEGATIVE); BARBITURATE SCREEN URINE NEGATIVE (NEGATIVE); BENZODIAZEPINES SCREEN URINE NEGATIVE (NEGATIVE); CANNABINOID SCREEN, URINE NEGATIVE (NEGATIVE); COCAINE SCREEN URINE NEGATIVE (NEGATIVE); METHADONE STAT NEGATIVE (NEGATIVE); METHAMPHETAMINE SCREEN URINE S NEGATIVE (NEGATIVE); OPIATE SCREEN URINE POSITIVE (NEGATIVE); OXYCODONE STAT NEGATIVE (NEGATIVE); PROPOXYPHENE STAT NEGATIVE (NEGATIVE); TRICYCLIC ANTIDEPRESSANTS SCRE NEGATIVE (NEGATIVE)
--- NOTE | 2020-10-14 09:33 | Diagnostic Imaging Report ---
INDICATION: Sepsis. Shortness of air. Generalized swelling. COMPARISON: 08/13/2018 FINDINGS: Single frontal radiographic view of the chest was obtained and demonstrates mild cardiomegaly and mild prominence of pulmonary vasculature. Lung west are moderately obscured by patient body habitus. There is, however, no large effusion or pneumothorax. Osseous structures show no acute abnormalities. IMPRESSION: 1. Mild cardiomegaly and pulmonary vascular congestion. Dictated by: Dictated on workstation # [id number]
[2020-10-14] MEDS ORDERED: FUROSEMIDE 40 MG/4 ML INJ (LASIX) IVP ONE (10:00)
[2020-10-14] MEDS ORDERED: methylPREDNISolone 40 MG/ML (Solu-MEDROL) VIAL IV ONE (10:15)
[2020-10-14] MEDS ORDERED: PRAMIPEXOLE 0.125 MG (MIRAPEX) TABLET PO ONE (11:00)
[2020-10-14] MEDS ORDERED: NS 100 ML (IVPB) BAG IV ONE (11:30)
[2020-10-14] MEDS ORDERED: HOLD METFORMIN - RECEIVED CONTRAST 20 ML VIAL IV SCH (11:30)
[2020-10-14] MEDS ORDERED: IOHEXOL 350 MG/ML 100 ML (OMNIPAQUE 350) VIAL IV ONE (11:30)
[2020-10-14 11:43] VITALS: BP 170/109
--- NOTE | 2020-10-14 12:08 | History & Physical-Hospitalist ---
History of Present Illness HPI/Chief Complaint Felipe Morillo is a 50-year-old female with super super obesity, presumed obesity hypoventilation syndrome, presumed obstructive sleep apnea, hypertension, hypothyroidism, who presented with shortness of breath. She has also been having a cough. She denies any fevers or chills. She denies any chest pain. She denies any abdominal pain. She denies any nausea or vomiting. She denies any diarrhea. She was in respiratory distress on arrival and had to be placed on BiPAP. Source: patient Exam Limitations: no limitations Date Seen 10/14/20 Time Seen by a Provider: 12:15 Attending Physician Wanda Reilly MD PCP No,Local Physician Referring Physician Date of Admission Oct 14, 2020 at 10:08 Home Medications & Allergies Home Medications Reviewed patient Home Medication Reconciliation performed by pharmacy medication reconciliations automated equipment engineer technician and/or nursing. Patients Allergies have been reviewed. Allergies Allergies Coded Allergies duloxetine (Verified Allergy, Unknown, 03/17/20) tramadol (Verified Allergy, Unknown, 03/17/20) butorphanol (Unverified Adverse Reaction, Severe, 08/04/18) HALLUCINATIONS Penicillins (Unverified Adverse Reaction, Unknown, NAUSEA, 08/04/18) Patient Social History Smoking Status: Former Smoker Current Status Primary Language: Sammarinese Past Medical History Hypertension Hypothyroidism Super super obesity Presumed obstructive sleep apnea Presumed obesity hypoventilation syndrome Family Medical History Family Hx: Noncontributory Review of Systems Constitutional: no symptoms reported EENTM: no symptoms reported Respiratory: cough, short of breath Cardiovascular: no symptoms reported Gastrointestinal: no symptoms reported Genitourinary: no symptoms reported Musculoskeletal: no symptoms reported Skin: no symptoms reported Psychiatric/Neurological: No Symptoms Reported Physical Exam Physical Exam Vital Signs Vital Signs - First Documented 10/14/20 10/14/20 10/14/20 07:40 07:49 12:45 Temp 36.3 Pulse 89 Resp 20 B/P (MAP) 155/107 (123) Pulse Ox 95 O2 Delivery NIV Bilevel O2 Flow Rate 21.00 FiO2 21 Capillary Refill : Less Than 3 Seconds Height, Weight, BMI Height: 5'0.00" Weight: 340lbs. 0.4oz. 153.527333fu; 78.00 BMI Method:Stated General Appearance: No Apparent Distress, Obese HEENT: PERRL/EOMI, Pharynx Normal Neck: Normal Inspection, Supple Respiratory: No Respiratory Distress, Decreased Breath Sounds Cardiovascular: Regular Rate, Rhythm, No Murmur Gastrointestinal: Normal Bowel Sounds, Non Tender, Soft Extremity: Normal Inspection, Non Tender, Pedal Edema Neurologic/Psychiatric: Alert, Oriented x3, Normal Mood/Affect Skin: Normal Color, Warm/Dry Results Results/Procedures Labs Laboratory Tests 10/14/20 07:49 10/15/20 03:00 Patient resulted labs reviewed. Imaging: Reviewed Imaging Report Assessment/Plan Admission Diagnosis Acute on chronic respiratory failure with hypoxia and hypercapnia Admission Status: Inpatient Order (span 2 midnights) Reason for Inpatient Admission: Respiratory failure requiring BiPAP Assessment and Plan Acute on chronic respiratory failure with hypoxia and hypercapnia Presumed obstructive sleep apnea Presumed obesity hypoventilation syndrome Super super obesity ABG with hypoxia and hypercapnia, not obtained until after on BiPAP for several hours Chest imaging with no pulmonary embolism, minimal congestion Requiring BiPAP Repeat ABG Begin steroids HTN Hypothyroidism Continue home meds DVT prophylaxis: Lovenox Diagnosis/Problems Diagnosis/Problems (1) Acute on chronic respiratory failure with hypoxia and hypercapnia Status: Acute (2) MARIA ISABEL (obstructive sleep apnea) Status: Chronic (3) Obesity hypoventilation syndrome Status: Chronic (4) Super-super obese Status: Chronic WANDA REILLY MD Oct 14, 2020 12:08
--- NOTE | 2020-10-14 12:23 | Diagnostic Imaging Report ---
PROCEDURE: CT angiography of the chest with contrast. TECHNIQUE: Multiple contiguous axial images were obtained through the chest after uneventful bolus administration of intravenous contrast. 3D reconstructed CTA MIP acquisitions were also performed. Auto Exposure Controls were utilized during the CT exam to meet ALARA standards for radiation dose reduction. INDICATION: Increasing shortness of air and generalized swelling. FINDINGS: Overall quality of the study is suboptimal due to suboptimal opacification of the pulmonary arterial system. Central pulmonary arteries appear to be patent without evidence of filling defect or pulmonary embolism. Lobar branches appear patent. There is limited evaluation of the segmental and subsegmental branches. Thoracic aorta is normal in caliber. There is no dissection. Heart is enlarged. There is no pericardial fluid. There is a trace right pleural effusion. No axillary lymphadenopathy is seen. No definite mediastinal or hilar lymphadenopathy is detected. Minimal linear atelectasis in the right upper lobe is seen. There is some atelectasis or infiltrate in the right lower lobe. Otherwise, the lungs are clear. Upper abdomen is unremarkable. IMPRESSION: 1. Suboptimal study but no evidence of central pulmonary emboli. 2. Small right pleural effusion with minimal infiltrate or atelectasis in the right lower lobe. Dictated by: Dictated on workstation # [id number]
[2020-10-14 12:48] LABS: ABG BASE EXCESS 9.5 MMOL/L (-2.5-2.5); ABG OXYGEN SATURATION 94 % (94-100); ABG PCO2 47 MMHG (35-45); ABG PH 7.47 (7.37-7.43); ABG PO2 61 MMHG (79-93); ABG TCO2 35.4 MMOL/L (21.0-31.0)
[2020-10-14 12:49] LABS: ALLENS TEST YES-POS; INSPIRED O2 21%; PATIENT TEMP 35.7; VENTILATOR NO
[2020-10-14] MEDS ORDERED: HYDR25TA4 PO ×2 (12:49→15:36)
[2020-10-14] MEDS ORDERED: PRAM0.5T2 PO (12:49)
[2020-10-14] MEDS ORDERED: LEVO125T6 PO (12:51)
[2020-10-14] MEDS ORDERED: INSU100V16 SQ ×2 (12:51→15:36)
[2020-10-14] MEDS ORDERED: FURO20TA4 PO (12:51)
[2020-10-14] MEDS ORDERED: LOSA100T57 PO ×2 (12:53→15:36)
[2020-10-14] MEDS ORDERED: ACHD5005 PO (12:53)
[2020-10-14] MEDS ORDERED: BACL10TA PO ×2 (12:54→15:36)
[2020-10-14] MEDS ORDERED: SOLI5TAB7 PO (12:55)
[2020-10-14] MEDS ORDERED: PANT40GR PO (12:56)
[2020-10-14] MEDS: inSUlin ASPART (NovoLOG) 1 UNIT/0.01 ML (CHARGE PER UNIT) SC SCH ×2 (13:11→18:33)
[2020-10-14] MEDS ORDERED: RT-ALBUTEROL SULF 2.5 MG/3 ML PRE-MIX VIAL IH PRN (13:15)
[2020-10-14] MEDS ORDERED: RT-ALBUTEROL/IPRATROPIUM 3 ML (DUONEB) VIAL IH PRN (13:15)
[2020-10-14] MEDS ORDERED: CATHETER FLUSH 10 ML SYR IV PRN (13:15)
--- NOTE | 2020-10-14 14:25 | Pulmonary Consultation ---
History of Present Illness History of Present Illness Date Seen by Provider: Oct 14, 2020 Time Seen by Provider: 14:17 Date of Admission Allergies and Home Medications Allergies Coded Allergies: duloxetine (Verified Allergy, Unknown, 03/17/20) tramadol (Verified Allergy, Unknown, 03/17/20) butorphanol (Unverified Adverse Reaction, Severe, 08/04/18) HALLUCINATIONS Penicillins (Unverified Adverse Reaction, Unknown, NAUSEA, 08/04/18) Home Medications Albuterol Sulfate 2.5 Mg/3 Ml Vial.neb, 2.5 MG INH Q6H, (Reported) Albuterol Sulfate 6.7 Gm Hfa.aer.ad, 2 PUFF INH Q6H PRN for SHORTNESS OF BREATH, (Reported) Atorvastatin Calcium 40 Mg Tablet, 40 MG PO HS, (Reported) Baclofen 10 Mg Tablet, 10 MG PO HS Prescribed by: TAYLOR GE on 10/14/20 1254 Diclofenac Sodium 100 Gm Gel..gram., 1 GM TOP DAILY PRN, (Reported) Divalproex Sodium 500 Mg Tab.er.24h, 500 MG PO BID, (Reported) Fluticasone/Vilanterol 1 Each Blst.w.dev, 1 EACH IH DAILY, (Reported) Furosemide 20 Mg Tablet, 40 MG PO DAILY Prescribed by: TAYLOR GE on 10/14/20 125 Hydrochlorothiazide 25 Mg Tablet, 25 MG PO DAILY Prescribed by: TAYLOR GE on 10/14/20 1249 Hydrocodone Bit/Acetaminophen 1 Tab Tab, 2 TAB PO PRN Prescribed by: TAYLOR GE on 10/14/20 125 Insulin Aspart 100 Unit/1 Ml Susp, 40 UNITS SQ TIDWM Prescribed by: TAYLOR GE on 10/14/20 125 Levothyroxine Sodium 125 Mcg Tablet, 200 MCG PO DAILY Prescribed by: TAYLOR GE on 10/14/20 1251 Losartan Potassium 100 Mg Tablet, 100 MG PO DAILY Prescribed by: TAYLOR GE on 10/14/20 125 Metoprolol Tartrate 100 Mg Tablet, 100 MG PO BID, (Reported) Pantoprazole Sodium 40 Mg Granpkt.dr, 40 MG PO DAILY Prescribed by: TAYLOR GE on 10/14/20 1256 Potassium Chloride 10 Meq Capsule.er, 10 MEQ PO DAILY, (Reported) Pramipexole Di-HCl 0.5 Mg Tablet, 1 MG PO HS Prescribed by: TAYLOR GE on 10/14/20 1249 Pregabalin 200 Mg Capsule, 200 MG PO BID, (Reported) Solifenacin Succinate 5 Mg Tablet, 5 MG PO DAILY Prescribed by: TAYLOR GE on 10/14/20 1255 Sumatriptan Succinate 100 Mg Tablet, 100 MG PO PRN PRN for MIGRAINE, (Reported) Past Pgjovgx-Wknsfu-Xyzwuj Hx Past Med/Social Hx: Reviewed Nursing Past Med/Soc Hx Patient Social History Alcohol Use: Denies 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 Smoking Status: Former Smoker Type Used: Cigarettes Former Smoker, Quit: Jul 08, 1990 2nd Hand Smoke Exposure: Yes Recent Infectious Disease Expo: No Recent Hopitalizations: No Have you traveled recently?: No Alcohol Use?: No Immunizations Up To Date Tetanus Booster (TDap): Unknown PED Vaccines UTD: Yes Date of Influenza Vaccine: Jul 25, 2018 Seasonal Allergies Seasonal Allergies: No Past Medical History Surgeries: Yes Cardiac, Section, Gallbladder, Orthopedic, Tubal Ligation Respiratory: Yes (RESTRICTIVE LUNG DISEASE; LEFT CHEST DEFORMITY) Asthma, Pneumonia, Chronic Bronchitis, Sleep Apnea, COPD Currently Using CPAP: No Currently Using BIPAP: No Cardiac: Yes (Congestive heart failure) Coronary Artery Disease, Heart Attack, High Cholesterol, Hypertension Neurological: Yes Headaches /Migraines, Neuropathy, Seizure Disorder Reproductive Disorders: No Genitourinary: Yes UTI-Chronic Gastrointestinal: Yes (Reports celiac disease) Ulcer Musculoskeletal: Yes Fibromyalgia, Scoliosis, Chronic Back Pain Endocrine: Yes (MORBID OBESITY) Diabetes, Insulin dep, Hypothyroidsim HEENT: Yes Cancer: No Psychosocial: Yes Anxiety, Depression Integumentary: No Blood Disorders: No Review of Systems Time Seen by Provider: 14:17 Sepsis Event Evaluation Height, Weight, BMI Height: 5'0.00" Weight: 340lbs. 0.4oz. 153.589158ot; 76.52 BMI Method:Stated Exam Exam Vital Signs Date Time Temp Pulse Resp B/P (MAP) Pulse Ox O2 Delivery O2 Flow Rate FiO2 10/14/20 13:43 95 Vapotherm 30 10/14/20 13:00 75 10/14/20 11:50 86 10/14/20 11:43 74 15 170/109 (129) 97 NIV Bilevel 21.00 10/14/20 11:43 74 15 170/109 (129) 97 NIV Bilevel 21.00 10/14/20 11:30 82 20 150/102 98 10/14/20 07:49 89 28 98 21.00 10/14/20 07:40 36.3 89 20 155/107 (123) 95 NIV Bilevel Height & Weight Height: 5'0.00" Weight: 340lbs. 0.4oz. 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 She states she has not missed any doses. -TSH is 5.99 - I question absorption issue -Will Start synthroid IV at 100mcg daily GI/DVT PPX IDALIA RUIZ DO Oct 14, 2020 14:25
[2020-10-14 14:52] LABS: ABG BASE EXCESS 8.5 MMOL/L (-2.5-2.5); ABG OXYGEN SATURATION 95 % (94-100); ABG PCO2 51 MMHG (35-45); ABG PH 7.42 (7.37-7.43); ABG PO2 69 MMHG (79-93); ABG TCO2 34.8 MMOL/L (21.0-31.0); ALLENS TEST YES-POS; INSPIRED O2 40L; PATIENT TEMP 36.7; VENTILATOR NO
[2020-10-14] MEDS: ENOXAPARIN 60 MG/0.6 ML (LOVENOX) SYR SC SCH (15:24)
[2020-10-14] MEDS: CATHETER FLUSH 10 ML SYR IV SCH (15:24)
[2020-10-14] MEDS ORDERED: LEVO200T6 PO (15:36)
[2020-10-14] MEDS ORDERED: PRAM1TAB5 PO (15:36)
[2020-10-14] MEDS ORDERED: NAPR-915 PO (15:36)
[2020-10-14] MEDS ORDERED: PANT40TA52 PO (15:36)
[2020-10-14] MEDS ORDERED: FURO40TA4 PO (15:36)
[2020-10-14] MEDS ORDERED: DICL100G27 TP (15:49)
[2020-10-14] MEDS ORDERED: FLU QUADRIvalent (3YOA+) 60 mcg/0.5 ml 2020-21 (AFLURIA) IM ONE (16:45)
[2020-10-14] MEDS: methylPREDNISolone 40 MG/ML (Solu-MEDROL) VIAL IV SCH (18:33)
[2020-10-14] MEDS: PANTOPRAZOLE 40 MG (PROTONIX) VIAL IV SCH (20:29)
[2020-10-14] MEDS: BACLOFEN 10 MG (LIORESAL) TAB PO SCH (20:30)
[2020-10-14] MEDS: MONTELUKAST 10 MG (SINGULAIR) TAB PO SCH (20:30)
[2020-10-14] MEDS: PRAMIPEXOLE 0.5 MG TAB (MIRAPEX) PO SCH (20:30)
[2020-10-14] MEDS: PREGABALIN 100 MG (LYRICA) CAPSULE PO SCH (20:30)
[2020-10-14] MEDS: SUMAtriptan 50 MG (IMITREX) TAB PO PRN (20:32)
[2020-10-15] MEDS: inSUlin ASPART (NovoLOG) 1 UNIT/0.01 ML (CHARGE PER UNIT) SC SCH ×4 (00:05→17:18)
[2020-10-15] MEDS: methylPREDNISolone 40 MG/ML (Solu-MEDROL) VIAL IV SCH ×4 (00:05→17:18)
[2020-10-15] MEDS: CATHETER FLUSH 10 ML SYR IV SCH ×4 (00:05→22:02)
[2020-10-15 02:22] VITALS: BP 169/91
[2020-10-15 03:27] LABS: BASOPHILS % (AUTO) 0 % (0-10); EOSINOPHILS % (AUTO) 0 % (0-10); HEMATOCRIT 42 % (35-52); LYMPHOCYTES # (AUTO) 1.1 10^3/uL (1.0-4.0); LYMPHOCYTES % (AUTO) 15 % (12-44); MEAN CORPUSCULAR HEMOGLOBIN 28 pg (25-34); MEAN CORPUSCULAR HGB CONC 31 g/dL (32-36); MEAN CORPUSCULAR VOLUME 90 fL (80-99); MEAN PLATELET VOLUME 9.5 fL (9.0-12.2); MONOCYTES # (AUTO) 0.1 10^3/uL (0.0-1.0); MONOCYTES % (AUTO) 2 % (0-12); NEUTROPHILS # (AUTO) 6.2 10^3/uL (1.8-7.8); NEUTROPHILS % (AUTO) 82 % (42-75); PLATELET COUNT 315 10^3/uL (130-400); WHITE BLOOD COUNT 7.5 10^3/uL (4.3-11.0)
[2020-10-15] MEDS: ENOXAPARIN 60 MG/0.6 ML (LOVENOX) SYR SC SCH ×2 (03:31→17:19)
[2020-10-15 03:51] LABS: CHLORIDE 99 MMOL/L (98-107); SODIUM 138 MMOL/L (135-145)
[2020-10-15 03:52] LABS: CALCIUM 8.5 MG/DL (8.5-10.1)
[2020-10-15 03:53] LABS: GLUCOSE 240 MG/DL (70-105)
[2020-10-15 03:54] LABS: CARBON DIOXIDE 26 MMOL/L (21-32)
[2020-10-15 03:56] LABS: CREATININE SERUM 0.75 MG/DL (0.60-1.30); GFR ESTIMATED > 60; PHOSPHORUS 2.3 MG/DL (2.3-4.7)
[2020-10-15 03:57] LABS: BUN/CREATININE RATIO 17
[2020-10-15 03:59] LABS: MAGNESIUM 1.8 MG/DL (1.6-2.4)
--- NOTE | 2020-10-15 04:10 | Pulmonary Progress Note ---
Subjective Time Seen by a Provider: 04:05 Subjective/Events-last exam Pt is currently using BiPAP. Sepsis Event Evaluation Height, Weight, BMI Height: 5'0.00" Weight: 340lbs. 0.4oz. 153.719119za; 76.52 BMI Method:Stated Focused Exam Lactate Level 10/14/20 07:49: Lactic Acid Level 1.51 Exam Exam Vital Signs Date Time Temp Pulse Resp B/P (MAP) Pulse Ox O2 Delivery O2 Flow Rate FiO2 10/15/20 02:22 97 18 95 30.00 10/15/20 00:50 NIV Bilevel 30.00 10/15/20 00:00 91 18 167/94 (118) 93 Vapotherm 40.00 25.00 10/14/20 23:59 95 NIV Bilevel 30 10/14/20 23:57 36.4 Vapotherm 40.00 25.00 10/14/20 23:00 93 13 166/93 (117) 93 Vapotherm 40.00 30.00 10/14/20 22:00 105 13 173/74 (107) 94 Vapotherm 40.00 30.00 10/14/20 22:00 Vapotherm 40.00 30.00 10/14/20 21:40 95 Vapotherm 40.00 30 10/14/20 21:00 110 12 182/90 (120) 95 NIV Bilevel 30.00 10/14/20 20:26 NIV Bilevel 30.00 10/14/20 20:00 95 Vapotherm 40.00 30 10/14/20 20:00 104 12 182/90 (120) 94 Vapotherm 40.00 30.00 10/14/20 19:43 36.9 106 22 165/90 (115) 94 Vapotherm 40.00 30.00 10/14/20 19:00 117 10/14/20 18:49 96 Vapotherm 40.00 30 10/14/20 18:36 Vapotherm 40.00 30.00 10/14/20 18:00 101 20 206/107 (140) 94 NIV Bilevel 30.00 10/14/20 17:00 104 17 143/86 (105) 96 NIV Bilevel 30.00 10/14/20 16:24 96 NIV Bilevel 30.00 10/14/20 16:00 97 18 177/90 (119) 96 NIV Bilevel 30.00 10/14/20 15:53 36.9 10/14/20 15:00 88 16 169/88 (115) 95 NIV Bilevel 30.00 10/14/20 14:48 NIV Bilevel 30.00 10/14/20 14:09 35.9 Vapotherm 40.00 25.00 10/14/20 14:00 101 20 151/88 (109) 97 NIV Bilevel 21.00 10/14/20 13:59 97 Vapotherm 40.00 30 10/14/20 13:43 95 Vapotherm 30 10/14/20 13:00 75 10/14/20 13:00 75 18 131/88 (102) 97 NIV Bilevel 21.00 10/14/20 12:45 94 NIV Bilevel 21 10/14/20 12:00 80 16 178/83 (114) 95 NIV Bilevel 21.00 10/14/20 11:50 86 10/14/20 11:43 74 15 170/109 (129) 97 NIV Bilevel 21.00 10/14/20 11:43 74 15 170/109 (129) 97 NIV Bilevel 21.00 10/14/20 11:30 82 20 150/102 98 10/14/20 07:49 89 28 98 21.00 10/14/20 07:40 36.3 89 20 155/107 (123) 95 NIV Bilevel I & O 10/15/20 07:00 Intake Total 770 ml Output Total 3325 ml Balance -2555 ml Height & Weight Height: 5'0.00" Weight: 340lbs. 0.4oz. 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 She has improved with use while here in ICU -Pt is also on multiple sedating meds at home -Will try to get pt machine for home use HTN -Restart Lopressor RLD with asthma and hypoxia with AE -Start Duonebs Q4 -Solumedrol 40 Q12 Allergic rhinitis -Claritin -Singulair - Hypothyroid -Pt takes 200mcg at home. She states she has not missed any doses. -TSH is 5.99 - I question absorption issue -Will Start synthroid IV at 100mcg daily GI/DVT PPX IDALIA RUIZ DO Oct 15, 2020 04:10
[2020-10-15 04:15] LABS: ABG BASE EXCESS 7.1 MMOL/L (-2.5-2.5); ABG OXYGEN SATURATION 97 % (94-100); ABG PCO2 49 MMHG (35-45); ABG PH 7.43 (7.37-7.43); ABG PO2 86 MMHG (79-93); ABG TCO2 33.2 MMOL/L (21.0-31.0)
[2020-10-15 04:18] LABS: ALLENS TEST YES-POS; INSPIRED O2 30%; PATIENT TEMP 36.4; VENTILATOR NO
[2020-10-15] MEDS ORDERED: MAGNESIUM 1 GM/100 ML IVPB 100 ML IV ONE (04:25)
[2020-10-15] MEDS: RT-ALBUTEROL/IPRATROPIUM 3 ML (DUONEB) VIAL IH SCH ×5 (06:00→22:20)
--- NOTE | 2020-10-15 07:07 | Diagnostic Imaging Report ---
INDICATION: Respiratory failure Portable chest 3:01 AM Heart size is normal. Pulmonary vascularity is normal. Lungs are clear. There are no effusions or pneumothoraces. IMPRESSION: No acute abnormality seen. Dictated by: Dictated on workstation # [id number]
[2020-10-15] MEDS ORDERED: SODIUM PHOSPHATE INJ 30 MM in NS (IVPB) 250 ML INJ ONE (08:00)
[2020-10-15] MEDS: PANTOPRAZOLE 40 MG (PROTONIX) VIAL IV SCH ×2 (09:49→22:03)
[2020-10-15] MEDS: LEVOTHYROXINE 100 MCG INJ (SYNTHROID) VIAL IV SCH (09:50)
[2020-10-15] MEDS: FUROSEMIDE 40 MG (LASIX) TAB PO SCH (09:50)
[2020-10-15] MEDS: meTOprolol SUCCINATE 100 MG (TOPROL XL) TAB PO SCH ×2 (09:50→22:02)
[2020-10-15] MEDS: PREGABALIN 100 MG (LYRICA) CAPSULE PO SCH ×2 (09:50→22:02)
[2020-10-15] MEDS: LORATADINE (CLARITIN) 10 MG TAB PO SCH (09:51)
--- NOTE | 2020-10-15 11:10 | Physician Query Clarification ---
PQ-Uncertain Diagnosis Admission/Discharge Admission Date: Oct 14, 2020 at 10:08 Discharge Date: Dr. Reilly, The medical record reflects the following clinical scenario: History/Risk Factors: acute respiratory failure/distress, OHS, CHF, COPD AE Clinical Findings: SOA, generalized swelling, R - 28, PH 7.47, PC02 51, P02 51 Treatment: Bipap, Albuterol, IV Lasix, Solumedrol Question: Is acute respiratory failure a clinically valid diagnosis? Acute respiratory failure was documented in the ED record with no further documentation in the medical record. Please document a response in Progress Note or Discharge Summary. 1. Yes, clinically valid, condition resolved. 2. No, condition ruled out. 3. Other, with explanation of clinical findings. 4. Undetermined, no explanation for clinical findings. PHYSICIAN RESPONSE Diagnosis clinically valid: Other, explanation/clinical finding Explanation of clincal finding Acute on chronic respiratory failure with hypoxia and hypercapnia Please remember a lack of response to the above will prompt a phone page by CDI/Coding staff. In responding to this query, please exercise your independent professional judgment. The purpose of this communication is to more accurately reflect the complexity of your patients condition. The fact that a question is asked does not imply that any particular answer is desired or expected. Thank you for your timely response to this clarification. Requestors name: [email or web address] THIS PHYSICIAN QUERY FORM IS A PERMANENT PART OF THE MEDICAL RECORD ELIZABETH SY Oct 15, 2020 11:10 NORAH REILLY MD Oct 21, 2020 07:05
--- NOTE | 2020-10-15 11:15 | Physician Query Clarification ---
PQ-CHF Specificity Admission Date: Oct 14, 2020 at 10:08 Discharge Date: Dr. Reilly, The medical record reflects the following clinical scenario: History/Risk Factors: acute respiratory failure, CHF, HTN, COPD AE, OHS Clinical Findings: BNP 84.7 Treatment: IVP 40 mg Lasix Question: Can you further specify the acuity &/or type of CHF per the clinical indicators above? Please document a response in the Progress Notes or Discharge Summary. 1. Acuity: Acute, Chronic or Acute on Chronic 2. Type: Systolic, Diastolic or Systolic & Diastolic 3. Unspecified: CHF cannot be further specified regarding type or acuity 4. Other, with explanation of clinical findings 5. Clinically undetermined, no explanation for clinical findings PHYSICIAN RESPONSE Acuity: Acute on Chronic Type: Diastolic Please remember a lack of response to the above will prompt a phone page by CDI/Coding staff. In responding to this query, please exercise your independent professional judgment. The purpose of this communication is to more accurately reflect the complexity of your patients condition. The fact that a question is asked does not imply that any particular answer is desired or expected. Thank you for your timely response to this clarification. Requestors name: [email or web address] Experience THIS PHYSICIAN QUERY FORM IS A PERMANENT PART OF THE MEDICAL RECORD ELIZABETH SY Oct 15, 2020 11:15 NORAH REILLY MD Oct 21, 2020 07:05
--- NOTE | 2020-10-15 14:07 | Physical Therapy Evaluation ---
PT Evaluation-General Medical Diagnosis Admission Date Oct 14, 2020 at 10:08 Medical Diagnosis: respiratory failure/COPD /CHF Onset Date: Oct 14, 2020 Therapy Diagnosis Therapy Diagnosis: debility Height/Weight Height (Feet): 5 Height (Inches): 0.00 Weight (Pounds): 340 Weight (Ounces): 0.4 Precautions Precautions/Isolations: Fall Prevention, Standard Precautions Weight Bear Status Right Lower Extremity: Right Weight Bearing/Tolerated Left Lower Extremity: Left Weight Bearing/Tolerated Referral Physician: Jamie Reason for Referral: Evaluation/Treatment Medical History Pertinent Medical History: COPD, DM, HTN, Hypothroidism, VT, Neuropathy Current History EMS secondary to SOA and edema (left AMA from [facility] 10/12/20) Reviewed History: Yes Social History Home: Single Level Current Living Status: Spouse Prior Prior Level of Function SCALE: Activities may be completed with or without assistive devices. 4-Qtfogeozyf-itnwrkx completes the activity by him/herself with no assistance from a helper. 5-Set-up or Clean-up Assistance-helper sets up or cleans up; patient completes activity. [place] assists only prior to or following the activity. 4-Supervision or Touching Assistance-helper provides verbal cues and/or touchin g/steadying and/or contact guard assistance as patient completes activity. Assistance may be provided throughout the activity or intermittently. 3-Partial/Moderate Assistance-helper does LESS THAN HALF the effort. [place] lifts, holds or supports trunk or limbs, but provides less than half the effort. 2-Substantial/Maximal Assistance-helper does MORE THAN HALF the effort. [place] lifts or holds trunk or limbs and provides more than half the effort. 6-Hpxsrhecz-onaxoy does ALL the effort. Patient does none of the effort to complete the activity. Or, the assistance of 2 or more helpers is required for the patient to complete the activity. If activity was not attempted, code reason: 7-Patient Refused. 9-Not Applicable-not attempted and the patient did not perform the activity before the current illness, exacerbation or injury. 10-Not Attempted due to Environmental Limitations-(lack of equipment, weather restraints, etc.). 88-Not Attempted due to Medical Conditions or Safety Concerns. Bed Mobility: 4 Transfers (B,C,W/C): 4 Gait: 4 Indoor Mobility (Ambulation): Independent Stairs: Not Applicalbe Prior Devices Use: Walker PT Evaluation-Current Subjective Patient agrees to PT. Pain Numeric Pain Scale: 0-No Pain Location: No Pain Reported Objective Patient Orientation: Normal For Age Attachments: Oxygen (vapotherm), Alcantar Catheter ROM/Strength ROM Lower Extremities limited bilaterally due to obesity Strength Lower Extremities 4/5 grossly bilateral LE Integumentary/Posture Integumentary refer to nursing notes Bladder Incontinence: Alcantar Cath Posture trunk flexed posture Neuromuscular (Tone, Coordination, Reflexes) grossly intact Sensory Vision: Functional Hearing: Functional Transfers Roll Left to Right (QC): 3 Lying to Sitting/Side of Bed(Q: 3 Sit to Stand (QC): 4 Chair/Lbp-vm-Izjbi Xfer(QC): 4 Gait Does the Patient Walk?: Yes Mode of Locomotion: Both Anticipated Mode of Locomotion: Both Walk 10 feet (QC): 4 Walk 50 ft with 2 Turns(QC): 88 Walk 150 ft (QC): 9 Distance: 10' Gait Assistive Device: FWW Comments/Gait Description WBOS Balance Sitting Static: Normal Sitting Dynamic: Normal Standing Static: Normal Standing Dynamic: Normal Assessment/Needs 50 y.o. female,will be seen short term by skilled PT to address functional mobility. Per spouse and patient, spouse assists at home PLOF. Rehab Potential: Fair PT Halfway Goals Station Installation Supervisor Goals PT Halfway Goals Time Frame: Oct 23, 2020 Roll Left & Right (QC): 4 Sit to Lying (QC): 3 Lying-Sitting on Side/Bed(QC): 3 Sit to Stand (QC): 4 Chair/Kwp-cp-Wbvim Xfer(QC): 4 Toilet Transfer (QC): 4 Does the Patient Walk: Yes Walk 10 feet (QC): 4 Walk 50ft with 2 Turns (QC): 4 PT Plan Problem List Problem List: Activity Tolerance, Functional Strength, Transfer, Bed Mobility Treatment/Plan Treatment Plan: Continue Plan of Care Treatment Plan: Bed Mobility, Education, Functional Activity Tatiana, Functional Strength, Gait, Safety, Therapeutic Exercise, Transfers Treatment Duration: Oct 23, 2020 Frequency: 6 times per week Estimated Hrs Per Day: .25 hour per day Patient and/or Family Agrees t: Yes Time/GCodes Time In: 1300 Time Out: 1320 Total Billed Treatment Time: 20 Total Billed Treatment 1 visit EVModC 20 min WARREN MUNIZ PT Oct 15, 2020 14:07
--- NOTE | 2020-10-15 15:38 | Progress Note - Hospitalist ---
Subjective HPI/CC On Admission Date Seen by Provider: Oct 15, 2020 Time Seen by Provider: 09:00 Subjective/Events-last exam She is feeling better. Her breathing has improved. She denies any fevers or chills. She has a dry cough. Focused Exam Lactate Level 10/14/20 07:49: Lactic Acid Level 1.51 Objective Exam Vital Signs Vital Signs Date Time Temp Pulse Resp B/P (MAP) Pulse Ox O2 Delivery O2 Flow Rate FiO2 10/15/20 15:00 79 24 Nasal Cannula 2.00 10/15/20 14:00 172/121 (138) 97 10/15/20 12:26 36.8 10/15/20 11:37 25 Capillary Refill : Less Than 3 Seconds General Appearance: No Apparent Distress, Obese Respiratory: No Respiratory Distress, Decreased Breath Sounds Cardiovascular: Regular Rate, Rhythm, No Murmur Gastrointestinal: Normal Bowel Sounds, Non Tender, Soft Extremity: Normal Inspection, Non Tender, Pedal Edema Neurologic/Psychiatric: Alert, Oriented x3, Normal Mood/Affect Skin: Normal Color, Warm/Dry Results/Procedures Lab Laboratory Tests 10/15/20 03:00 Patient resulted labs reviewed. Imaging: Reviewed Imaging Report Assessment/Plan Assessment and Plan Assess & Plan/Chief Complaint Acute respiratory failure with hypoxia and hypercapnia Presumed obstructive sleep apnea Presumed obesity hypoventilation syndrome Super super obesity ABG showed compensated hypercapnic respiratory failure Chest imaging with no pulmonary embolism, minimal congestion Requiring Vapotherm, s/p BiPAP Trial off Vapotherm/BiPAP tonight, transition to nasal cannula Repeat ABG tomorrow morning HTN Hypothyroidism Continue home meds DVT prophylaxis: Lovenox Diagnosis/Problems Diagnosis/Problems (1) Acute respiratory failure with hypoxia and hypercapnia Status: Acute (2) Obesity hypoventilation syndrome Status: Chronic (3) MARIA ISABEL (obstructive sleep apnea) Status: Chronic (4) Hypothyroidism Status: Chronic (5) Super-super obese Status: Chronic NORAH REILLY MD Oct 15, 2020 15:38
--- NOTE | 2020-10-15 16:50 | Diagnostic Imaging Report ---
INDICATION: PICC line placement. TECHNIQUE: Frontal chest obtained at 04:18 p.m. and compared to same day at 03:01 a.m. FINDINGS: There is prominent cardiomegaly. There is central vascular congestion with some borderline edema. There is no pneumothorax or gross pleural fluid. PICC line is seen from the right arm. The study is somewhat technically limited but the tip appears to be over the distal SVC. IMPRESSION: Prominent cardiomegaly with some central vascular congestion and borderline edema. No pleural fluid. There is a new right-sided PICC line, tip appears to be over the distal SVC. Dictated by: Dictated on workstation # [id number]
[2020-10-15] MEDS: hydrALAZINE (APESOLINE) 20 MG/ML VIAL IV PRN (18:42)
[2020-10-15] MEDS: BACLOFEN 10 MG (LIORESAL) TAB PO SCH (22:02)
[2020-10-15] MEDS: MONTELUKAST 10 MG (SINGULAIR) TAB PO SCH (22:02)
[2020-10-15] MEDS: PRAMIPEXOLE 0.5 MG TAB (MIRAPEX) PO SCH (22:02)
[2020-10-16] MEDS: SUMAtriptan 50 MG (IMITREX) TAB PO PRN (00:17)
[2020-10-16] MEDS: inSUlin ASPART (NovoLOG) 1 UNIT/0.01 ML (CHARGE PER UNIT) SC SCH ×5 (00:40→23:10)
[2020-10-16] MEDS: diphenhydrAMINE 25 MG TAB (BENADRYL) PO PRN ×2 (02:23→23:08)
[2020-10-16] MEDS: ENOXAPARIN 60 MG/0.6 ML (LOVENOX) SYR SC SCH ×2 (02:51→15:31)
[2020-10-16 03:02] LABS: BASOPHILS % (AUTO) 0 % (0-10); EOSINOPHILS % (AUTO) 0 % (0-10); HEMATOCRIT 41 % (35-52); HEMOGLOBIN 12.7 g/dL (11.5-16.0); LYMPHOCYTES # (AUTO) 1.3 10^3/uL (1.0-4.0); LYMPHOCYTES % (AUTO) 10 % (12-44); MEAN CORPUSCULAR HEMOGLOBIN 28 pg (25-34); MEAN CORPUSCULAR HGB CONC 31 g/dL (32-36); MEAN CORPUSCULAR VOLUME 89 fL (80-99); MEAN PLATELET VOLUME 9.3 fL (9.0-12.2); MONOCYTES # (AUTO) 0.9 10^3/uL (0.0-1.0); MONOCYTES % (AUTO) 6 % (0-12); NEUTROPHILS # (AUTO) 11.6 10^3/uL (1.8-7.8); NEUTROPHILS % (AUTO) 83 % (42-75); PLATELET COUNT 332 10^3/uL (130-400); WHITE BLOOD COUNT 13.9 10^3/uL (4.3-11.0)
[2020-10-16 03:12] LABS: CHLORIDE 98 MMOL/L (98-107); POTASSIUM 4.2 MMOL/L (3.6-5.0); SODIUM 138 MMOL/L (135-145)
[2020-10-16 03:13] LABS: CALCIUM 8.6 MG/DL (8.5-10.1)
[2020-10-16 03:14] LABS: GLUCOSE 286 MG/DL (70-105)
[2020-10-16 03:16] LABS: CARBON DIOXIDE 27 MMOL/L (21-32)
[2020-10-16 03:18] LABS: CREATININE SERUM 0.81 MG/DL (0.60-1.30); GFR ESTIMATED > 60
[2020-10-16 03:19] LABS: BUN/CREATININE RATIO 25
[2020-10-16] MEDS: RT-ALBUTEROL/IPRATROPIUM 3 ML (DUONEB) VIAL IH SCH ×6 (03:59→22:44)
[2020-10-16] MEDS: CATHETER FLUSH 10 ML SYR IV SCH ×3 (05:06→23:10)
[2020-10-16] MEDS: methylPREDNISolone 40 MG/ML (Solu-MEDROL) VIAL IV SCH ×2 (05:06→17:11)
--- NOTE | 2020-10-16 08:10 | Diagnostic Imaging Report ---
INDICATION: Respiratory failure. FINDINGS: There is cardiomegaly. Some venous congestion. No pleural effusion or pneumothorax. The mediastinum is unremarkable. IMPRESSION: Cardiomegaly and some central pulmonary venous congestion. Dictated by: Dictated on workstation # [id number]
[2020-10-16] MEDS: LEVOTHYROXINE 100 MCG INJ (SYNTHROID) VIAL IV SCH (08:35)
[2020-10-16] MEDS: PANTOPRAZOLE 40 MG (PROTONIX) VIAL IV SCH ×2 (08:35→23:07)
[2020-10-16] MEDS: meTOprolol SUCCINATE 100 MG (TOPROL XL) TAB PO SCH ×2 (08:36→23:08)
[2020-10-16] MEDS: LORATADINE (CLARITIN) 10 MG TAB PO SCH (08:36)
[2020-10-16] MEDS: FUROSEMIDE 40 MG (LASIX) TAB PO SCH (08:36)
[2020-10-16] MEDS: PREGABALIN 100 MG (LYRICA) CAPSULE PO SCH ×2 (08:36→23:07)
--- NOTE | 2020-10-16 11:48 | Physical Therapy Daily Note ---
PT Daily Note-Current Subjective Pt up in chair. Reports she has been moving back and forth from bed to chair. Transfers SCALE: Activities may be completed with or without assistive devices. 7-Zfezxmsvxh-cddwwwk completes the activity by him/herself with no assistance from a helper. 5-Set-up or Clean-up Assistance-helper sets up or cleans up; patient completes activity. [place] assists only prior to or following the activity. 4-Supervision or Touching Assistance-helper provides verbal cues and/or touching/steadying and/or contact guard assistance as patient completes activity. Assistance may be provided throughout the activity or intermittently. 3-Partial/Moderate Assistance-helper does LESS THAN HALF the effort. [place] lifts, holds or supports trunk or limbs, but provides less than half the effort. 2-Substantial/Maximal Assistance-helper does MORE THAN HALF the effort. [place] lifts or holds trunk or limbs and provides more than half the effort. 1-Akaeppgbr-nwdmwa does ALL the effort. Patient does none of the effort to complete the activity. Or, the assistance of 2 or more helpers is required for the patient to complete the activity. If activity was not attempted, code reason: 7-Patient Refused. 9-Not Applicable-not attempted and the patient did not perform the activity before the current illness, exacerbation or injury. 10-Not Attempted due to Environmental Limitations-(lack of equipment, weather restraints, etc.). 88-Not Attempted due to Medical Conditions or Safety Concerns. Weight Bearing Right Lower Extremity: Right Weight Bearing/Tolerated Left Lower Extremity: Left Weight Bearing/Tolerated Gait Training Ambulate 5ft with FWW, limited by monitor wires. Pt stable in standing with use of FWW Exercises Standing: Marching, Mini squats, Sit to Stand Standing Reps: 10 Assessment Pt is making progress with strength and mobility. She will benefit from continued therapy to progress strength and functional mobility for return to home. PT Candy Cutter Hand Goals Candy Cutter Hand Goals PT Candy Cutter Hand Goals Time Frame: Oct 23, 2020 Roll Left & Right (QC): 4 Sit to Lying (QC): 3 Lying-Sitting on Side/Bed(QC): 3 Sit to Stand (QC): 4 Chair/Iac-sg-Jvcoa Xfer(QC): 4 Toilet Transfer (QC): 4 Does the Patient Walk: Yes Walk 10 feet (QC): 4 Walk 50ft with 2 Turns (QC): 4 PT Plan Treatment/Plan Treatment Plan: Continue Plan of Care Treatment Plan: Bed Mobility, Education, Functional Activity Tatiana, Functional Strength, Gait, Safety, Therapeutic Exercise, Transfers Treatment Duration: Oct 23, 2020 Frequency: 6 times per week Estimated Hrs Per Day: .25 hour per day Patient and/or Family Agrees t: Yes Discharge Recommendations Therapy Discharge Recommendati: Post Acute PT, Post Acute OT Time/GCodes Time In: 1135 Time Out: 1145 Total Billed Treatment Time: 10 Total Billed Treatment visit, exercise 10 min TAI BEASLEY PT Oct 16, 2020 11:48
--- NOTE | 2020-10-16 13:04 | Progress Note - Hospitalist ---
Subjective HPI/CC On Admission Date Seen by Provider: Oct 16, 2020 Time Seen by Provider: 09:15 Felipe Morillo is a 50-year-old female with super super obesity, presumed obesity hypoventilation syndrome, presumed obstructive sleep apnea, hypertension, hypothyroidism, who presented with shortness of breath. She has also been having a cough. She denies any fevers or chills. She denies any chest pain. She denies any abdominal pain. She denies any nausea or vomiting. She denies any diarrhea. She was in respiratory distress on arrival and had to be placed on BiPAP. Subjective/Events-last exam She did not sleep well last night. She is tired this morning. She thinks her shortness of breath is improved. She still has a dry cough. She denies fevers or chills. She denies chest pain. Focused Exam Lactate Level 10/14/20 07:49: Lactic Acid Level 1.51 Objective Exam Vital Signs Vital Signs Date Time Temp Pulse Resp B/P (MAP) Pulse Ox O2 Delivery O2 Flow Rate FiO2 10/16/20 12:29 84 10/16/20 12:00 12 97 Nasal Cannula 2.00 10/16/20 11:02 36.3 10/15/20 16:15 25 Capillary Refill : Less Than 3 Seconds General Appearance: No Apparent Distress, Obese Respiratory: Lungs Clear, Normal Breath Sounds, No Respiratory Distress Cardiovascular: Regular Rate, Rhythm, No Edema, No Murmur Gastrointestinal: Normal Bowel Sounds, Non Tender, Soft Extremity: Normal Inspection, Non Tender, Pedal Edema Neurologic/Psychiatric: Alert, Oriented x3, No Motor/Sensory Deficits, Normal Mood/Affect Skin: Normal Color, Warm/Dry Results/Procedures Lab Laboratory Tests 10/16/20 02:50 Patient resulted labs reviewed. Imaging: Reviewed Imaging Report Assessment/Plan Assessment and Plan Assess & Plan/Chief Complaint Acute on chronic respiratory failure with hypoxia and hypercapnia Presumed obstructive sleep apnea Presumed obesity hypoventilation syndrome Super super obesity ABG with hypoxia and hypercapnia, not obtained until after on BiPAP for several hours Chest imaging with no pulmonary embolism, minimal congestion Did well off BiPAP overnight Continue supplemental oxygen via nasal cannula as needed Repeat ABG tomorrow morning Continue steroids HTN Hypothyroidism Continue home meds DVT prophylaxis: Lovenox Diagnosis/Problems Diagnosis/Problems (1) Acute on chronic respiratory failure with hypoxia and hypercapnia Status: Acute (2) MARIA ISABEL (obstructive sleep apnea) Status: Chronic (3) Obesity hypoventilation syndrome Status: Chronic (4) Super-super obese Status: Chronic NORAH REILLY MD Oct 16, 2020 13:04
[2020-10-16] MEDS: BACLOFEN 10 MG (LIORESAL) TAB PO SCH (23:07)
[2020-10-16] MEDS: MONTELUKAST 10 MG (SINGULAIR) TAB PO SCH (23:08)
[2020-10-16] MEDS: PRAMIPEXOLE 0.5 MG TAB (MIRAPEX) PO SCH (23:08)
[2020-10-17] MEDS: SUMAtriptan 50 MG (IMITREX) TAB PO PRN (02:29)
[2020-10-17] MEDS: ENOXAPARIN 60 MG/0.6 ML (LOVENOX) SYR SC SCH ×2 (02:31→16:14)
[2020-10-17] MEDS: RT-ALBUTEROL/IPRATROPIUM 3 ML (DUONEB) VIAL IH SCH ×3 (02:33→10:55)
[2020-10-17] MEDS: hydrALAZINE (APESOLINE) 20 MG/ML VIAL IV PRN ×2 (04:07→11:46)
[2020-10-17 05:44] LABS: BASOPHILS % (AUTO) 0 % (0-10); EOSINOPHILS % (AUTO) 0 % (0-10); HEMATOCRIT 41 % (35-52); LYMPHOCYTES # (AUTO) 2.1 10^3/uL (1.0-4.0); LYMPHOCYTES % (AUTO) 16 % (12-44); MEAN CORPUSCULAR HEMOGLOBIN 28 pg (25-34); MEAN CORPUSCULAR HGB CONC 32 g/dL (32-36); MEAN CORPUSCULAR VOLUME 89 fL (80-99); MEAN PLATELET VOLUME 9.4 fL (9.0-12.2); MONOCYTES % (AUTO) 8 % (0-12); NEUTROPHILS # (AUTO) 9.8 10^3/uL (1.8-7.8); NEUTROPHILS % (AUTO) 75 % (42-75); PLATELET COUNT 322 10^3/uL (130-400); WHITE BLOOD COUNT 12.9 10^3/uL (4.3-11.0)
[2020-10-17 06:06] LABS: CHLORIDE 93 MMOL/L (98-107); POTASSIUM 4.3 MMOL/L (3.6-5.0); SODIUM 136 MMOL/L (135-145)
[2020-10-17 06:07] LABS: CALCIUM 8.8 MG/DL (8.5-10.1)
[2020-10-17 06:08] LABS: GLUCOSE 246 MG/DL (70-105)
[2020-10-17 06:10] LABS: CARBON DIOXIDE 29 MMOL/L (21-32)
[2020-10-17 06:12] LABS: CREATININE SERUM 0.78 MG/DL (0.60-1.30); GFR ESTIMATED > 60; PHOSPHORUS 3.2 MG/DL (2.3-4.7)
[2020-10-17 06:13] LABS: BUN/CREATININE RATIO 28
[2020-10-17 06:14] LABS: MAGNESIUM 1.9 MG/DL (1.6-2.4)
[2020-10-17] MEDS: CATHETER FLUSH 10 ML SYR IV SCH ×2 (06:24→14:45)
[2020-10-17] MEDS: inSUlin ASPART (NovoLOG) 1 UNIT/0.01 ML (CHARGE PER UNIT) SC SCH ×2 (06:24→11:46)
--- NOTE | 2020-10-17 06:41 | Diagnostic Imaging Report ---
Portable erect AP chest at 3:26 Indication: Respiratory distress The cardiomegaly and mild pulmonary congestion noted on the prior exam of 10/16/2020 are again evident and no different. The right heart border remains indistinct and there may be some atelectasis/infiltrate in this region as well. This finding is also stable compared to the prior exam. The mediastinum is not widened. The osseous structures are intact. Impression: Stable chest. There has been no adverse change since the prior study. A followup exam would be recommended for continued evaluation. Dictated by: Dictated on workstation # [id number]
[2020-10-17] MEDS ORDERED: predniSONE 20 MG TAB PO SCH (07:00)
[2020-10-17 07:42] LABS: ABG BASE EXCESS 8.5 MMOL/L (-2.5-2.5); ABG OXYGEN SATURATION 81 % (94-100); ABG PCO2 45 MMHG (35-45); ABG PH 7.47 (7.37-7.43); ABG PO2 46 MMHG (79-93); ABG TCO2 34.1 MMOL/L (21.0-31.0)
[2020-10-17 07:43] LABS: ALLENS TEST YES-POS
[2020-10-17 07:44] LABS: INSPIRED O2 25%; PATIENT TEMP 36.1; VENTILATOR NO
[2020-10-17] MEDS: meTOprolol SUCCINATE 100 MG (TOPROL XL) TAB PO SCH (09:52)
[2020-10-17] MEDS: PREGABALIN 100 MG (LYRICA) CAPSULE PO SCH (09:52)
[2020-10-17] MEDS: FUROSEMIDE 40 MG (LASIX) TAB PO SCH (09:52)
[2020-10-17] MEDS: PANTOPRAZOLE 40 MG (PROTONIX) VIAL IV SCH (09:52)
[2020-10-17] MEDS: LORATADINE (CLARITIN) 10 MG TAB PO SCH (09:52)
[2020-10-17] MEDS: LEVOTHYROXINE 100 MCG INJ (SYNTHROID) VIAL IV SCH (10:44)
[2020-10-17] MEDS ORDERED: PRED10TA22 PO (11:57)
[2020-10-17 16:14] VITALS: BP 142/84
== END 2020-10-17 16:30 | disposition home or self-care (01) | DRG 189 ==
LOC: EDUNIT# 07:26 → ER 07:29 → ICU 10:08 → 4TH 10-16 14:29
PROVIDERS: ADMIT Internal Medicine; ATTEND Internal Medicine
PROC: 5A09457 Assistance with Respiratory Ventilation, 24-96 Consecutive Hours, Continuous Positive Airway Pressure (ICD-10-PCS; principal; 2020-10-14)
DX: J96.21 Acute and chronic respiratory failure with hypoxia (principal); I50.33 Acute on chronic diastolic (congestive) heart failure; J44.1 Chronic obstructive pulmonary disease with (acute) exacerbation; E66.2 Morbid (severe) obesity with alveolar hypoventilation; Z68.45 Body mass index [BMI] 70 or greater, adult; J96.22 Acute and chronic respiratory failure with hypercapnia; I11.0 Hypertensive heart disease with heart failure; Z20.822 Contact with and (suspected) exposure to COVID-19; I25.10 Atherosclerotic heart disease of native coronary artery without angina pectoris; I25.2 Old myocardial infarction; E78.00 Pure hypercholesterolemia, unspecified; E11.40 Type 2 diabetes mellitus with diabetic neuropathy, unspecified; G40.909 Epilepsy, unspecified, not intractable, without status epilepticus; M79.7 Fibromyalgia; M41.9 Scoliosis, unspecified; M54.9 Dorsalgia, unspecified; E03.9 Hypothyroidism, unspecified; F41.9 Anxiety disorder, unspecified; F32.9 Major depressive disorder, single episode, unspecified; Z79.4 Long term (current) use of insulin; Z87.891 Personal history of nicotine dependence
CPT/HCPCS: 36415; 36569; 51702; 71045; 71275; 76937; 80048; 80053; 80164; 80306; 81000; 82805; 82962; 83605; 83615; 83735; 83880; 84100; 84145; 84443; 84484; 85025; 85379; 85610; 85730; 86141; 87040; 87077; 87081; 87088; 87635; 87804; 93005; 93041; 94640; 94660; 94761; 96374; 96375

== ENCOUNTER 2020-11-03 09:36 | Emergency (ER) | payer MEDICAID ==
[~2020-11-03] VITALS: Ht 152 cm; Wt 165.9 kg
[~2020-11-03 09:36] MED LIST changes: +ACHD5005 PO; +BACL10TA PO; +DICL100G27 TP; +FURO40TA4 PO; +HYDR25TA4 PO; +LEVO200T6 PO; +LOSA100T57 PO; +NAPR-915 PO; +PANT40GR PO; +PANT40TA52 PO; +PRAM1TAB5 PO; +PRED10TA22 PO; +SOLI5TAB7 PO
--- NOTE | 2020-11-03 09:42 | ED Dyspnea ---
General Stated Complaint: SOB History of Present Illness Date Seen by Provider: November 03, 2020 Time Seen by Provider: 09:37 Initial Comments 50-year-old female presents with shortness of breath. Patient reports that shortness of breath started yesterday. Caregiver and EMS reports that patient normally wears 2 L home oxygen and that somehow it was turned off yesterday. She did have a fall yesterday she has no complaints from the fall. Patient has chronic shortness of breath. Patient has no increased cough, chest pain, fevers or chills. Patient's oxygen upon arrival on her baseline 2 L was in the low 90s. Patient with no other systemic complaints. Allergies and Home Medications Allergies Coded Allergies: duloxetine (Verified Allergy, Unknown, 03/17/20) tramadol (Verified Allergy, Unknown, 03/17/20) butorphanol (Unverified Adverse Reaction, Severe, 08/04/18) HALLUCINATIONS Penicillins (Unverified Adverse Reaction, Unknown, NAUSEA, 08/04/18) Home Medications Albuterol Sulfate 2.5 Mg/3 Ml Vial.neb, 2.5 MG INH Q6H PRN for SHORTNESS OF BREATH, (Reported) Albuterol Sulfate 6.7 Gm Hfa.aer.ad, 2 PUFF INH Q6H PRN for SHORTNESS OF BREATH, (Reported) Atorvastatin Calcium 40 Mg Tablet, 40 MG PO HS, (Reported) Baclofen 10 Mg Tablet, 10 MG PO HS, (Reported) Diclofenac Sodium 100 Gm Gel..gram., 1 APPLIC TP UD PRN for PAIN-BREAKTHROUGH, (Reported) Divalproex Sodium 500 Mg Tab.er.24h, 500 MG PO BID, (Reported) LAST FILLED 08-04-2020 #60/30 DAY SUPPLY Furosemide 40 Mg Tablet, 40 MG PO BID, (Reported) Hydrochlorothiazide 25 Mg Tablet, 25 MG PO DAILY, (Reported) LAST FILLED 08-04-2020 #30/30 DAY SUPPLY Insulin Aspart 100 Unit/1 Ml Susp, UNIT SQ UD, (Reported) USES PER PUMP Levothyroxine Sodium 200 Mcg Tablet, 200 MCG PO DAILY, (Reported) Losartan Potassium 100 Mg Tablet, 100 MG PO DAILY, (Reported) LAST FILLED 08-04-2020 #30/30 DAY SUPPLY Metoprolol Tartrate 100 Mg Tablet, 100 MG PO BID, (Reported) Naproxen 500 Mg Tablet, 500 MG PO BID, (Reported) Pantoprazole Sodium 40 Mg Tablet.dr, 40 MG PO DAILY, (Reported) Pramipexole Di-HCl 1 Mg Tablet, 1 MG PO HS, (Reported) Prednisone 10 Mg Tab.ds.pk, 10 MG PO DAILY Take 6 tabs(60mg)daily,decrease by 1 tab(10MG)daily. Prescribed by: NORAH REILLY on 10/17/20 1157 Pregabalin 200 Mg Capsule, 200 MG PO BID, (Reported) LAST FILLED 08-18-2020 #60/30 DAY SUPPLY Sumatriptan Succinate 100 Mg Tablet, 100 MG PO UD PRN for MIGRAINE, (Reported) Patient Home Medication List Home Medication List Reviewed: Yes Review of Systems Review of Systems Constitutional: No chills, No fever Respiratory: orthopnea, short of breath Cardiovascular: No chest pain, No palpitations Gastrointestinal: No abdominal pain, No nausea, No vomiting Musculoskeletal: no symptoms reported Skin: no symptoms reported Psychiatric/Neurological: No Symptoms Reported Past [id number]-Xyfrek-Nckjbo Hx Past Med/Social Hx: Reviewed Nursing Past Med/Soc Hx Physical Exam Vital Signs Vital Signs - First Documented 11/03/20 11/03/20 09:40 10:07 Temp 36.5 Pulse 112 Resp 24 B/P (MAP) 163/130 (141) Pulse Ox 94 O2 Delivery Nasal Cannula O2 Flow Rate 2.00 Capillary Refill : Height, Weight, BMI Height: '" Weight: lbs. oz. 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 Norm as Tested Skin: Normal Color, Warm/Dry Progress/Results/Core Measures Results/Orders Lab Results Laboratory Tests Test 11/03/20 10:16 Range/Units White Blood Count 7.8 4.3-11.0 10^3/uL Red Blood Count 4.04 3.80-5.11 10^6/uL Hemoglobin 11.2 L 11.5-16.0 g/dL Hematocrit 37 35-52 % Mean Corpuscular Volume 92 80-99 fL Mean Corpuscular Hemoglobin 28 25-34 pg Mean Corpuscular Hemoglobin Concent 30 L 32-36 g/dL Red Cell Distribution Width 17.3 H 10.0-14.5 % Platelet Count 326 130-400 10^3/uL Mean Platelet Volume 9.5 9.0-12.2 fL Immature Granulocyte % (Auto) 1 % Neutrophils (%) (Auto) 59 42-75 % Lymphocytes (%) (Auto) 25 12-44 % Monocytes (%) (Auto) 9 0-12 % Eosinophils (%) (Auto) 6 0-10 % Basophils (%) (Auto) 0 0-10 % Neutrophils # (Auto) 4.6 1.8-7.8 10^3/uL Lymphocytes # (Auto) 1.9 1.0-4.0 10^3/uL Monocytes # (Auto) 0.7 0.0-1.0 10^3/uL Eosinophils # (Auto) 0.5 H 0.0-0.3 10^3/uL Basophils # (Auto) 0.0 0.0-0.1 10^3/uL Immature Granulocyte # (Auto) 0.1 0.0-0.1 10^3/uL Sodium Level 143 135-145 MMOL/L Potassium Level 3.9 3.6-5.0 MMOL/L Chloride Level 102 98-107 MMOL/L Carbon Dioxide Level 34 H 21-32 MMOL/L Anion Gap 7 5-14 MMOL/L Blood Urea Nitrogen 13 7-18 MG/DL Creatinine 0.67 0.60-1.30 MG/DL Estimat Glomerular Filtration Rate > 60 BUN/Creatinine Ratio 19 Glucose Level 160 H 70-105 MG/DL Calcium Level 8.4 L 8.5-10.1 MG/DL Corrected Calcium 8.6 8.5-10.1 MG/DL Magnesium Level 1.6 1.6-2.4 MG/DL Total Bilirubin 0.5 0.1-1.0 MG/DL Aspartate Amino Transf (AST/SGOT) 22 5-34 U/L Alanine Aminotransferase (ALT/SGPT) 27 0-55 U/L Alkaline Phosphatase 120 40-136 U/L B-Type Natriuretic Peptide 40.6 <100.0 PG/ML Total Protein 6.7 6.4-8.2 GM/DL Albumin 3.7 3.2-4.5 GM/DL My Orders Orders - SON,ARGENIS L DO Chest 1 View, Ap/Pa Only (5/5/21 09:42) BNP (11/03/20 09:42) Cbc With Automated Diff (11/03/20 09:42) Comprehensive Metabolic Panel (11/03/20 09:42) Magnesium (11/03/20 09:42) Albuterol/Ipra Inhalation Soln (Duoneb I (11/03/20 09:45) Svn Small Volume Nebulizer (11/03/20 09:44) Propranolol Tablet (Inderal Tablet) (11/03/20 10:00) Medications Given in ED Current Medications Medications Dose Ordered Sig/Alex Route Start Time Stop Time Status Last Admin Dose Admin Albuterol/ Ipratropium 3 ml ONCE ONCE INH 11/03/20 09:45 11/03/20 09:46 DC 11/03/20 10:07 3 ML Vital Signs/I&O 11/03/20 11/03/20 11/03/20 09:40 10:07 11:03 Temp 36.5 Pulse 112 112 Resp 24 20 B/P (MAP) 163/130 (141) 155/70 (98) Pulse Ox 94 94 96 O2 Delivery Nasal Cannula Nasal Cannula Nasal Cannula O2 Flow Rate 2.00 2.00 Progress Progress Note : Time: 12:08 Progress Note Patient with no acute findings. Patient's durations been running upper 90s on her home 2 L. I did call and discussed with Dr. Mosqueda who will see her on outpatient basis. Patient stable and will be discharged home. Departure Impression Primary Impression: Chronic dyspnea Additional Impression: Oxygen dependent Disposition: 01 HOME, SELF-CARE Condition: Stable Departure-Patient Inst. Patient Instructions: Shortness of Breath (Dyspnea), Oxygen Therapy, Adult Add. Discharge Instructions: Call Dr. Mosqueda's office to arrange for a follow-up in the next couple days ARGENIS SON DO November 03, 2020 09:42
[2020-11-03] MEDS ORDERED: RT-ALBUTEROL/IPRATROPIUM 3 ML (DUONEB) VIAL INH ONE (09:45)
[2020-11-03] MEDS ORDERED: PROPRANOLOL 20 MG (INDERAL) TABLET PO ONE (10:00)
[2020-11-03 10:38] LABS: MEAN CORPUSCULAR VOLUME 92 fL (80-99); MEAN PLATELET VOLUME 9.5 fL (9.0-12.2); MONOCYTES # (AUTO) 0.7 10^3/uL (0.0-1.0)
[2020-11-03 10:40] LABS: BASOPHILS % (AUTO) 0 % (0-10); EOSINOPHILS # (AUTO) 0.5 10^3/uL (0.0-0.3); EOSINOPHILS % (AUTO) 6 % (0-10); HEMATOCRIT 37 % (35-52); HEMOGLOBIN 11.2 g/dL (11.5-16.0); LYMPHOCYTES # (AUTO) 1.9 10^3/uL (1.0-4.0); LYMPHOCYTES % (AUTO) 25 % (12-44); MEAN CORPUSCULAR HEMOGLOBIN 28 pg (25-34); MEAN CORPUSCULAR HGB CONC 30 g/dL (32-36); MONOCYTES % (AUTO) 9 % (0-12); NEUTROPHILS # (AUTO) 4.6 10^3/uL (1.8-7.8); NEUTROPHILS % (AUTO) 59 % (42-75); PLATELET COUNT 326 10^3/uL (130-400); WHITE BLOOD COUNT 7.8 10^3/uL (4.3-11.0)
[2020-11-03 10:49] LABS: ALBUMIN 3.7 GM/DL (3.2-4.5)
[2020-11-03 10:50] LABS: CHLORIDE 102 MMOL/L (98-107); POTASSIUM 3.9 MMOL/L (3.6-5.0); SODIUM 143 MMOL/L (135-145)
[2020-11-03 10:51] LABS: CALCIUM 8.4 MG/DL (8.5-10.1)
[2020-11-03 10:52] LABS: GLUCOSE 160 MG/DL (70-105); TOTAL PROTEIN 6.7 GM/DL (6.4-8.2)
[2020-11-03 10:53] LABS: CARBON DIOXIDE 34 MMOL/L (21-32)
[2020-11-03 10:54] LABS: BILIRUBIN,TOTAL 0.5 MG/DL (0.1-1.0)
[2020-11-03 10:55] LABS: ALKALINE PHOSPHATASE 120 U/L (40-136)
[2020-11-03 10:56] LABS: CREATININE SERUM 0.67 MG/DL (0.60-1.30); GFR ESTIMATED > 60
[2020-11-03 10:57] LABS: BUN/CREATININE RATIO 19
[2020-11-03 10:58] LABS: ALANINE AMINOTRANSFERASE 27 U/L (0-55); MAGNESIUM 1.6 MG/DL (1.6-2.4)
--- NOTE | 2020-11-03 10:59 | Diagnostic Imaging Report ---
INDICATION: Shortness of air. COMPARISON: 10/17/2020. FINDINGS: A single frontal radiographic view of the chest was obtained and demonstrates enlargement of the cardiac silhouette. Although this may be exaggerated by portable technique and prominent pericardial fat, the pulmonary vasculature appears prominent as well. The lungs are overall clear. There is no focal consolidation, large effusion, or pneumothorax. The osseous structures show no gross acute abnormalities. IMPRESSION: Enlargement of the cardiac silhouette. Again, although this may be exaggerated by portable technique and pericardial fat, the pulmonary vasculature does appear prominent. One may want to consider correlation with an echocardiogram. Dictated by: Dictated on workstation # [id number]
[2020-11-03 12:48] VITALS: BP 124/90
[2020-11-08] MEDS ORDERED: ASPI-1238 PO (11:33)
[2020-11-08] MEDS ORDERED: CEFD300C3 PO (11:33)
[2020-11-08] MEDS ORDERED: AZIT250T12 PO (11:33)
== END 2020-11-03 12:55 | disposition home or self-care (01) ==
LOC: EDUNIT# 09:36 → ER 09:37
DX: R06.00 Dyspnea, unspecified (principal); E66.01 Morbid (severe) obesity due to excess calories; Z99.81 Dependence on supplemental oxygen; Z88.0 Allergy status to penicillin; Z88.5 Allergy status to narcotic agent; Z88.8 Allergy status to other drugs, medicaments and biological substances; Z79.52 Long term (current) use of systemic steroids
CPT/HCPCS: 36415; 71045; 80053; 83735; 83880; 85025; 94640

== ENCOUNTER 2020-11-06 20:29 | Observation (INO) | payer MEDICAID ==
[~2020-11-06] VITALS: Ht 152 cm; Wt 173.6 kg
[2020-11-06] MEDS ORDERED: ASPIRIN 81 MG CHEW (CHILDREN'S ASA) PO ONE (20:45)
[2020-11-06] MEDS ORDERED: NITROGLYCERIN 0.4 MG SL TABS BTL 25'S SL PRN (20:45)
--- NOTE | 2020-11-06 20:48 | ED Chest Pain ---
General Stated Complaint: SOA/CHEST PAIN Source: patient Exam Limitations: no limitations History of Present Illness Date Seen by Provider: November 06, 2020 Time Seen by Provider: 20:30 Initial Comments Patient arrives by EMS from home with chief complaint of feeling chest pressure within the past 4 to 5 hours like something sitting on her chest. She also has pain in her right ribs from a fall 3 to 4 days ago down some stairs. She says she been having off-and-on intermittent discomfort in her chest and has had multiple EMS visits today. She decided to come get checked out because her baseline oxygen of 2 L for COPD and CHF was insufficient so she was at 4 L to maintain sats in the mid 90s. She is not having a productive cough fever c hills. No sick contacts. She has had 2 COVID-19 vaccines with her last one being about 2-3 weeks ago. [facility], MARIA ISABEL, echocardiogram 2019 demonstrating LVEF of 60 to 65%. Diabetes type 2. Bilateral tubal ligation, dental caries, normal MPI 2019. Allergies and Home Medications Allergies Coded Allergies: duloxetine (Verified Allergy, Unknown, 03/17/20) tramadol (Verified Allergy, Unknown, 03/17/20) butorphanol (Unverified Adverse Reaction, Severe, 08/04/18) HALLUCINATIONS Penicillins (Unverified Adverse Reaction, Unknown, NAUSEA, 08/04/18) Home Medications Albuterol Sulfate 2.5 Mg/3 Ml Vial.neb, 2.5 MG INH Q6H PRN for SHORTNESS OF BREATH, (Reported) Albuterol Sulfate 6.7 Gm Hfa.aer.ad, 2 PUFF INH Q6H PRN for SHORTNESS OF BREATH, (Reported) Atorvastatin Calcium 40 Mg Tablet, 40 MG PO HS, (Reported) Baclofen 10 Mg Tablet, 10 MG PO HS, (Reported) Diclofenac Sodium 100 Gm Gel..gram., 1 APPLIC TP UD PRN for PAIN-BREAKTHROUGH, (Reported) Divalproex Sodium 500 Mg Tab.er.24h, 500 MG PO BID, (Reported) LAST FILLED 08-04-2020 #60/30 DAY SUPPLY Furosemide 40 Mg Tablet, 40 MG PO BID, (Reported) Hydrochlorothiazide 25 Mg Tablet, 25 MG PO DAILY, (Reported) LAST FILLED 08-04-2020 #30/30 DAY SUPPLY Insulin Aspart 100 Unit/1 Ml Susp, UNIT SQ UD, (Reported) USES PER PUMP Levothyroxine Sodium 200 Mcg Tablet, 200 MCG PO DAILY, (Reported) Losartan Potassium 100 Mg Tablet, 100 MG PO DAILY, (Reported) LAST FILLED 08-04-2020 #30/30 DAY SUPPLY Metoprolol Tartrate 100 Mg Tablet, 100 MG PO BID, (Reported) Naproxen 500 Mg Tablet, 500 MG PO BID, (Reported) Pantoprazole Sodium 40 Mg Tablet.dr, 40 MG PO DAILY, (Reported) Pramipexole Di-HCl 1 Mg Tablet, 1 MG PO HS, (Reported) Prednisone 10 Mg Tab.ds.pk, 10 MG PO DAILY Take 6 tabs(60mg)daily,decrease by 1 tab(10MG)daily. Prescribed by: NORAH REILLY on 10/17/20 1157 Pregabalin 200 Mg Capsule, 200 MG PO BID, (Reported) LAST FILLED 08-18-2020 #60/30 DAY SUPPLY Sumatriptan Succinate 100 Mg Tablet, 100 MG PO UD PRN for MIGRAINE, (Reported) Patient Home Medication List Home Medication List Reviewed: Yes Review of Systems Review of Systems Constitutional: No chills, No diaphoresis EENTM: No Blurred Vision, No Double Vision Respiratory: Denies Cough, Denies Shortness of Air Cardiovascular: See HPI, Chest Pain; Denies Lightheadedness Gastrointestinal: Denies Constipated, Denies Diarrhea, Denies Nausea Genitourinary: Denies Discharge, Denies Drainage Musculoskeletal: No back pain, No joint pain Skin: No pruritus, No rash Psychiatric/Neurological: Denies Headache, Denies Numbness All Other Systems Reviewed Negative Unless Noted: Yes Past Ycwtwfi-Qmoopb-Zingox Hx Patient Social History Alcohol Use: Denies 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 Smoking Status: Never a Smoker Type Used: Cigarettes Former Smoker, Quit: Oct 28, 1993 2nd Hand Smoke Exposure: Yes Recent Hopitalizations: No Immunizations Up To Date Tetanus Booster (TDap): Unknown PED Vaccines UTD: Yes Date of Influenza Vaccine: Jul 25, 2018 Seasonal Allergies Seasonal Allergies: No Past Medical History Surgeries: Yes Cardiac, Section, Gallbladder, Orthopedic, Tubal Ligation Respiratory: Yes (RESTRICTIVE LUNG DISEASE; LEFT CHEST DEFORMITY) Asthma, Pneumonia, Chronic Bronchitis, Sleep Apnea, COPD Currently Using CPAP: No Currently Using BIPAP: No Cardiac: Yes (Congestive heart failure) Coronary Artery Disease, Heart Attack, High Cholesterol, Hypertension Neurological: Yes Headaches /Migraines, Neuropathy, Seizure Disorder Reproductive Disorders: No Genitourinary: Yes UTI-Chronic Gastrointestinal: Yes (Reports celiac disease) Ulcer Musculoskeletal: Yes Fibromyalgia, Scoliosis, Chronic Back Pain Endocrine: Yes (MORBID OBESITY) Diabetes, Insulin dep, Hypothyroidsim HEENT: Yes Cancer: No Psychosocial: Yes Anxiety, Depression Integumentary: No Blood Disorders: No Family Medical History Noncontributory Physical Exam Vital Signs Capillary Refill : Height, Weight, BMI Height: 5'0.00" Weight: 389lbs. 0.4oz. 176.261100hw; 71.00 BMI Method:Stated General Appearance: No Apparent Distress, Obese HEENT: PERRL/EOMI, Pharynx Normal, Moist Mucous Membranes Neck: Full Range of Motion, Normal Inspection, Non Tender Respiratory: Lungs Clear, Normal Breath Sounds, No Accessory Muscle Use, No Respiratory Distress Cardiovascular: Regular Rate, Rhythm, No Edema, Normal Peripheral Pulses Gastrointestinal: Normal Bowel Sounds, Non Tender, Soft Extremity: Normal Capillary Refill, No Pedal Edema Neurologic/Psychiatric: Alert, Oriented x3 Skin: Normal Color, Warm/Dry Progress/Results/Core Measures Results/Orders Lab Results Laboratory Tests Test 11/06/20 20:53 11/06/20 22:58 Range/Units White Blood Count 6.6 4.3-11.0 10^3/uL Red Blood Count 4.38 3.80-5.11 10^6/uL Hemoglobin 12.1 11.5-16.0 g/dL Hematocrit 39 35-52 % Mean Corpuscular Volume 90 80-99 fL Mean Corpuscular Hemoglobin 28 25-34 pg Mean Corpuscular Hemoglobin Concent 31 L 32-36 g/dL Red Cell Distribution Width 17.2 H 10.0-14.5 % Platelet Count 367 130-400 10^3/uL Mean Platelet Volume 9.1 9.0-12.2 fL Immature Granulocyte % (Auto) 1 % Neutrophils (%) (Auto) 53 42-75 % Lymphocytes (%) (Auto) 31 12-44 % Monocytes (%) (Auto) 10 0-12 % Eosinophils (%) (Auto) 6 0-10 % Basophils (%) (Auto) 1 0-10 % Neutrophils # (Auto) 3.5 1.8-7.8 10^3/uL Lymphocytes # (Auto) 2.0 1.0-4.0 10^3/uL Monocytes # (Auto) 0.6 0.0-1.0 10^3/uL Eosinophils # (Auto) 0.4 H 0.0-0.3 10^3/uL Basophils # (Auto) 0.0 0.0-0.1 10^3/uL Immature Granulocyte # (Auto) 0.0 0.0-0.1 10^3/uL Prothrombin Time 13.3 12.2-14.7 SEC INR Comment 1.0 0.8-1.4 Activated Partial Thromboplast Time 26 24-35 SEC Sodium Level 141 135-145 MMOL/L Potassium Level 7.0 *H 3.7 3.6-5.0 MMOL/L Chloride Level 92 L 98-107 MMOL/L Carbon Dioxide Level 34 H 21-32 MMOL/L Anion Gap 15 H 5-14 MMOL/L Blood Urea Nitrogen 14 7-18 MG/DL Creatinine 1.05 0.60-1.30 MG/DL Estimat Glomerular Filtration Rate 56 BUN/Creatinine Ratio 13 Glucose Level 242 H 70-105 MG/DL Calcium Level 8.8 8.5-10.1 MG/DL Corrected Calcium 9.0 8.5-10.1 MG/DL Magnesium Level 1.8 1.6-2.4 MG/DL Total Bilirubin 0.5 0.1-1.0 MG/DL Aspartate Amino Transf (AST/SGOT) 59 H 5-34 U/L Alanine Aminotransferase (ALT/SGPT) 30 0-55 U/L Alkaline Phosphatase 116 40-136 U/L Myoglobin 39.4 10.0-92.0 NG/ML Troponin I < 0.028 <0.028 NG/ML B-Type Natriuretic Peptide 27.0 <100.0 PG/ML Total Protein 8.1 6.4-8.2 GM/DL Albumin 3.8 3.2-4.5 GM/DL My Orders Orders - LEATHA ENGLISH Cbc With Automated Diff (11/06/20 20:40) Magnesium (11/06/20 20:40) Chest 1 View, Ap/Pa Only (11/06/20 20:40) Ekg Tracing (11/06/20 20:40) Comprehensive Metabolic Panel (11/06/20 20:40) Myoglobin Serum (11/06/20 20:40) Protime With Inr (11/06/20 20:40) Partial Thromboplastin Time (11/06/20 20:40) O2 (11/06/20 20:40) Monitor-Rhythm Ecg Trace Only (11/06/20 20:40) Lipid Panel (11/07/20 06:00) Ed Iv/Invasive Line Start (11/06/20 20:40) BNP (11/06/20 20:40) Troponin I (11/06/20 20:40) Nitroglycerin 0.4 Mg Btl 25's (Nitrostat (11/06/20 20:45) Aspirin Chewable Tablet (Baby Aspirin Ch (11/06/20 20:45) Ct Chest W (11/06/20 20:40) Iohexol Injection (Omnipaque 350 Mg/Ml 1 (11/06/20 21:00) Received Contrast (Hold Metformin- Contr (11/06/20 21:00) Ns (Ivpb) (Sodium Chloride 0.9% Ivpb Bag (11/06/20 21:00) Iohexol Injection (Omnipaque 350 Mg/Ml 1 (11/06/20 21:30) Received Contrast (Hold Metformin- Contr (11/06/20 21:30) Ns (Ivpb) (Sodium Chloride 0.9% Ivpb Bag (11/06/20 21:30) Potassium (11/06/20 21:36) Medications Given in ED Current Medications Medications Dose Ordered Sig/Alex Route Start Time Stop Time Status Last Admin Dose Admin Iohexol 75 ml ONCE ONCE IV 11/06/20 21:00 11/06/20 21:01 DC 11/06/20 21:26 74 ML Sodium Chloride 100 ml ONCE ONCE IV 11/06/20 21:00 11/06/20 21:01 DC 11/06/20 21:26 80 ML Progress Progress Note #1: Time: 20:44 Progress Note Suspect her chest pain pressure is related to her cracked ribs. Plan to get some labs including a CT of her chest since it is difficult for her to even sit up 2 view chest x-ray will not be easy to obtain. Her body habitus will also make it easy to miss pneumothorax or small rib fractures. She used a breathing treatment earlier today with no effect and does not have any wheezing auscultated. Lung sounds are equal bilateral and I do not suspect she has tension pneumothorax at this time. Progress Note #2: Time: 23:27 Progress Note Heart score 4 points, high risk. Will discuss observation stay with cardiology. Initial potassium seem to be hemolyzed as the repeat potassium was normal. Initial ECG Impression Date: November 06, 2020 Initial ECG Impression Time: 20:33 Initial ECG Rate: 91 Initial ECG Rhythm: Normal Sinus Initial ECG Intervals: Normal Initial ECG Impression: Normal Initial ECG Comparisson: Unchanged Comment Normal sinus rhythm without clinically relevant ST changes. Diagnostic Imaging Diagonstic Imaging: Xray Plain Films/CT/US/NM/MRI: chest [facility] [place] [place] NAME: JOSIAS HADDAD Nanalysis REC#: [id number] PT STATUS: REG ER : 1970 PHYSICIAN: LEATHA ENGLISH MD ADMIT DATE: 11/06/20/ER Draft Date of Exam:11/06/20 CHEST 1 VIEW, AP/PA ONLY INDICATION: Chest pain. COMPARISON: 11/03/2020. EXAMINATION: Single frontal radiographic view of the chest was obtained. FINDINGS: Mild cardiomegaly. Pulmonary vasculature remains mildly prominent. Lungs are otherwise clear. There is no focal consolidation, large effusion or pneumothorax. Osseous structures show no gross acute abnormality. IMPRESSION: Mild cardiomegaly and pulmonary vascular congestion. Dictated on workstation # [id number] Dict: 11/06/202128 Trans: 11/06/202134 [facility] [id number] Interpreted by: RUPESH MCDUFFIE MD Electronically signed by: Reviewed: Reviewed by Me Diagonstic Imaging: CT Plain Films/CT/US/NM/MRI: chest Comments [facility] [place] [place] NAME: MONI HADDADCIRO Nanalysis REC#: [id number] PT STATUS: REG ER : 1970 PHYSICIAN: LEATHA ENGLISH MD ADMIT DATE: 11/06/20/ER Draft Date of Exam:11/06/20 CT CHEST W PROCEDURE: CT chest with contrast only. TECHNIQUE: Multiple contiguous axial images were obtained through the chest after administration of intravenous contrast. Auto Exposure Controls were utilized during the CT exam to meet ALARA standards for radiation dose reduction. INDICATION: Chest pain. Shortness of air. Recent fall. COMPARISON: None. FINDINGS: Cardiomediastinal structures show moderate cardiomegaly. There is no large pericardial effusion. No pathologically enlarged or morphologically abnormal adenopathy is seen within the mediastinum, keegan or axilla. Lung west show subtle minimal alveolar opacities within the left lower lobe. There is no large effusion or pneumothorax on either side. Note is also made of mild bibasilar dependent atelectasis. Lungs are otherwise clear. No suspicious pulmonary nodule or mass is seen. Osseous structures show no lytic or blastic lesion. No acute bony abnormality is seen. The included portions of the upper abdomen are unremarkable as well. IMPRESSION: 1. Moderate cardiomegaly. 2. Minimal patchy airspace opacities within the left lower lobe concerning for infiltrate. Dictated on workstation # [id number] Dict: 11/06/202131 Trans: 11/06/202136 [facility] [id number] Interpreted by: RUPESH MCDUFFIE MD Electronically signed by: Reviewed: Reviewed by Me Departure Communication (Admissions) Time/Spoke to Admitting Phy: 23:40 Discussed the case with Dr. Strange and she agrees to observe the patient with cardiac consultation. Time/Spoke to Consulting Phy: 23:[address] Mtz he agrees with aspirin and Lovenox. Impression Primary Impression: Pneumonia Qualified Codes: J18.9 - Pneumonia, unspecified organism Additional Impressions: Acute and chronic respiratory failure with hypoxia Chest pain Qualified Codes: R07.9 - Chest pain, unspecified Acute coronary syndrome without high troponin Disposition: ADMITTED INPATIENT Condition: Stable Admissions Decision to Admit Reason: Admit from ER (General) Decision to Admit/Date: November 06, 2020 Time/Decision to Admit Time: 23:27 Departure-Patient Inst. Referrals: NO,LOCAL PHYSICIAN (PCP/Family) Primary Care Physician LEATHA ENGLISH November 06, 2020 20:48
[2020-11-06 21:00] LABS: BASOPHILS % (AUTO) 1 % (0-10); EOSINOPHILS # (AUTO) 0.4 10^3/uL (0.0-0.3); EOSINOPHILS % (AUTO) 6 % (0-10); HEMATOCRIT 39 % (35-52); HEMOGLOBIN 12.1 g/dL (11.5-16.0); LYMPHOCYTES % (AUTO) 31 % (12-44); MEAN CORPUSCULAR HEMOGLOBIN 28 pg (25-34); MEAN CORPUSCULAR HGB CONC 31 g/dL (32-36); MEAN CORPUSCULAR VOLUME 90 fL (80-99); MEAN PLATELET VOLUME 9.1 fL (9.0-12.2); MONOCYTES # (AUTO) 0.6 10^3/uL (0.0-1.0); MONOCYTES % (AUTO) 10 % (0-12); NEUTROPHILS # (AUTO) 3.5 10^3/uL (1.8-7.8); NEUTROPHILS % (AUTO) 53 % (42-75); PLATELET COUNT 367 10^3/uL (130-400); WHITE BLOOD COUNT 6.6 10^3/uL (4.3-11.0)
[2020-11-06] MEDS ORDERED: NS 100 ML (IVPB) BAG IV ONE ×2 (21:00→21:30)
[2020-11-06] MEDS ORDERED: IOHEXOL 350 MG/ML 100 ML (OMNIPAQUE 350) VIAL IV ONE ×2 (21:00→21:30)
[2020-11-06] MEDS ORDERED: HOLD METFORMIN - RECEIVED CONTRAST 20 ML VIAL IV SCH ×2 (21:00→21:30)
[2020-11-06 21:15] LABS: ALBUMIN 3.8 GM/DL (3.2-4.5)
[2020-11-06 21:16] LABS: CALCIUM 8.8 MG/DL (8.5-10.1); PROTHROMBIN TIME PATIENT 13.3 SEC (12.2-14.7)
[2020-11-06 21:17] LABS: TOTAL PROTEIN 8.1 GM/DL (6.4-8.2)
[2020-11-06 21:19] LABS: BILIRUBIN,TOTAL 0.5 MG/DL (0.1-1.0)
[2020-11-06 21:21] LABS: CREATININE SERUM 1.05 MG/DL (0.60-1.30)
[2020-11-06 21:24] LABS: MAGNESIUM 1.8 MG/DL (1.6-2.4)
--- NOTE | 2020-11-06 21:35 | Diagnostic Imaging Report ---
INDICATION: Chest pain. COMPARISON: 11/03/2020. EXAMINATION: Single frontal radiographic view of the chest was obtained. FINDINGS: Mild cardiomegaly. Pulmonary vasculature remains mildly prominent. Lungs are otherwise clear. There is no focal consolidation, large effusion or pneumothorax. Osseous structures show no gross acute abnormality. IMPRESSION: Mild cardiomegaly and pulmonary vascular congestion. Dictated by: Dictated on workstation # [id number]
--- NOTE | 2020-11-06 21:38 | Diagnostic Imaging Report ---
PROCEDURE: CT chest with contrast only. TECHNIQUE: Multiple contiguous axial images were obtained through the chest after administration of intravenous contrast. Auto Exposure Controls were utilized during the CT exam to meet ALARA standards for radiation dose reduction. INDICATION: Chest pain. Shortness of air. Recent fall. COMPARISON: None. FINDINGS: Cardiomediastinal structures show moderate cardiomegaly. There is no large pericardial effusion. No pathologically enlarged or morphologically abnormal adenopathy is seen within the mediastinum, keegan or axilla. Lung west show subtle minimal alveolar opacities within the left lower lobe. There is no large effusion or pneumothorax on either side. Note is also made of mild bibasilar dependent atelectasis. Lungs are otherwise clear. No suspicious pulmonary nodule or mass is seen. Osseous structures show no lytic or blastic lesion. No acute bony abnormality is seen. The included portions of the upper abdomen are unremarkable as well. IMPRESSION: 1. Moderate cardiomegaly. 2. Minimal patchy airspace opacities within the left lower lobe concerning for infiltrate. Dictated by: Dictated on workstation # [id number]
[2020-11-07] MEDS ORDERED: ACETAMINOPHEN 325 MG TABLET PO PRN (01:15)
[2020-11-07] MEDS ORDERED: LACTATED RINGERS 1,000 ML IV SCH (01:15)
[2020-11-07] MEDS ORDERED: ENOXAPARIN 80 MG/0.8 ML (LOVENOX) SYR SC SCH (01:17)
[2020-11-07] MEDS: cefTRIAXone 1,000 MG/SWFI 10 ML IV PUSH IV SCH ×4 (01:29→19:51)
[2020-11-07] MEDS: AZITHROMYCIN 250 MG TAB (ZITHROMAX) PO SCH ×2 (01:29→19:37)
[2020-11-07] MEDS ORDERED: morphine INJ 4 MG/ML 1 ML (VIAL/SYRINGE) IV PRN (01:30)
[2020-11-07] MEDS ORDERED: PATIENT MAY USE OWN MEDS, ALL PO SCH (01:30)
[2020-11-07] MEDS ORDERED: NITROGLYCERIN 0.4 MG SL TABS BTL 25'S SL PRN (01:30)
[2020-11-07] MEDS ORDERED: ONDANSETRON 4 MG/2 ML (SDV) Z0FRAN IVP PRN (01:30)
[2020-11-07 03:24] VITALS: BP 126/71
[2020-11-07] MEDS ORDERED: RT-ALBUTEROL SULF 2.5 MG/3 ML PRE-MIX VIAL INH PRN (03:45)
[2020-11-07 04:49] LABS: ABG BASE EXCESS 17.6 MMOL/L (-2.5-2.5); ABG OXYGEN SATURATION 97 % (94-100); ABG PH 7.39 (7.37-7.43); ABG PO2 85 MMHG (79-93)
[2020-11-07 04:51] LABS: ABG PCO2 74 MMHG (35-45)
[2020-11-07 04:52] LABS: ALLENS TEST NO; INSPIRED O2 31 L; PATIENT TEMP 36.6; VENTILATOR NO
[2020-11-07 06:08] LABS: BASOPHILS % (AUTO) 1 % (0-10); EOSINOPHILS # (AUTO) 0.5 10^3/uL (0.0-0.3); EOSINOPHILS % (AUTO) 7 % (0-10); HEMATOCRIT 36 % (35-52); HEMOGLOBIN 11.1 g/dL (11.5-16.0); LYMPHOCYTES # (AUTO) 2.4 10^3/uL (1.0-4.0); LYMPHOCYTES % (AUTO) 37 % (12-44); MEAN CORPUSCULAR HEMOGLOBIN 28 pg (25-34); MEAN CORPUSCULAR HGB CONC 31 g/dL (32-36); MEAN CORPUSCULAR VOLUME 91 fL (80-99); MEAN PLATELET VOLUME 8.9 fL (9.0-12.2); MONOCYTES # (AUTO) 0.7 10^3/uL (0.0-1.0); MONOCYTES % (AUTO) 11 % (0-12); NEUTROPHILS # (AUTO) 2.9 10^3/uL (1.8-7.8); NEUTROPHILS % (AUTO) 44 % (42-75); PLATELET COUNT 327 10^3/uL (130-400); WHITE BLOOD COUNT 6.5 10^3/uL (4.3-11.0)
[2020-11-07 06:16] LABS: ALBUMIN 3.5 GM/DL (3.2-4.5); CHLORIDE 93 MMOL/L (98-107); POTASSIUM 3.5 MMOL/L (3.6-5.0); SODIUM 143 MMOL/L (135-145)
[2020-11-07 06:17] LABS: CALCIUM 8.4 MG/DL (8.5-10.1)
[2020-11-07 06:18] LABS: GLUCOSE 170 MG/DL (70-105); TOTAL PROTEIN 6.4 GM/DL (6.4-8.2)
[2020-11-07 06:19] LABS: CARBON DIOXIDE 36 MMOL/L (21-32)
[2020-11-07 06:20] LABS: BILIRUBIN,TOTAL 0.5 MG/DL (0.1-1.0)
[2020-11-07 06:22] LABS: ALKALINE PHOSPHATASE 104 U/L (40-136); CREATININE SERUM 0.76 MG/DL (0.60-1.30); GFR ESTIMATED > 60
[2020-11-07 06:23] LABS: BUN/CREATININE RATIO 18
[2020-11-07 06:25] LABS: ALANINE AMINOTRANSFERASE 23 U/L (0-55)
[2020-11-07] MEDS: RT-ALBUTEROL SULF 2.5 MG/3 ML PRE-MIX VIAL INH SCH ×5 (06:46→22:09)
--- NOTE | 2020-11-07 07:08 | History & Physical-Hospitalist ---
History of Present Illness HPI/Chief Complaint CC: Dyspnea HPI: This is a 50yoWM morbidly obese WF with BMI 76 who has a h/o severe MARIA ISABEL on home O2 who presents to the ER with shortness of breath. Patient was found to have PNA and volume overload prompting abx and Cardiology respectively. Home meds were restarted and ECHO and venous doppler were performed. 3L/min O2 now instead of 2L/min. Source: patient Exam Limitations: no limitations Date Seen 11/07/20 Time Seen by a Provider: 11:00 Attending Physician Carmen Strange DO PCP No,Local Physician Referring Physician Date of Admission November 06, 2020 at 23:40 Home Medications & Allergies Home Medications Reviewed patient Home Medication Reconciliation performed by pharmacy medication reconciliations natural resource technician and/or nursing. Patients Allergies have been reviewed. Allergies Allergies Coded Allergies duloxetine (Verified Allergy, Unknown, 03/17/20) tramadol (Verified Allergy, Unknown, 03/17/20) butorphanol (Unverified Adverse Reaction, Severe, 08/04/18) HALLUCINATIONS Penicillins (Unverified Adverse Reaction, Unknown, NAUSEA, 08/04/18) Patient Social History Marrital Status: Employed/Student: unemployed Tobacco Use?: No Smoking Status: Never a Smoker Pt stated abuse/neglect: No Immunizations Up To Date Influenza Vaccine Up-to-Date: Yes; Up-to-Date Second COVID19 Vaccination Mamadou: OCTOBER 28 2020 Tetanus Booster (TDap): Unknown Current Status Communicates: Verbally Primary Language: [place]er Preferred Spoken Language: [place]er Is interpretation needed?: No Implanted or Applied Medical D: None Past Medical History Hypertension Hypothyroidism Super super obesity Presumed obstructive sleep apnea Presumed obesity hypoventilation syndrome Family Medical History Family Hx: Noncontributory Review of Systems Constitutional: see HPI Respiratory: dyspnea on exertion, short of breath, wheezing Physical Exam Physical Exam Vital Signs Vital Signs - First Documented 11/06/20 20:30 Temp 36.3 Pulse 89 Resp 20 B/P (MAP) 151/93 (112) Pulse Ox 99 O2 Delivery Room Air O2 Flow Rate 4.00 Capillary Refill : Less Than 3 Seconds Height, Weight, BMI Height: 5'0.00" Weight: 389lbs. 0.4oz. 176.779410ls; 74.61 BMI Method:Stated General Appearance: No Apparent Distress, Chronically ill, Obese Respiratory: No Accessory Muscle Use, No Respiratory Distress, Decreased Breath Sounds Cardiovascular: Regular Rate, Rhythm Extremity: Pedal Edema Neurologic/Psychiatric: Alert, Oriented x3 Results Results/Procedures Labs Laboratory Tests 11/06/20 20:53 11/06/20 22:58 11/07/20 06:00 Patient resulted labs reviewed. Assessment/Plan Admission Diagnosis Assessment: Acute on chronic respiratory failure with hypercapnia and hypoxia PNA RLL CAP Super obesity Severe MARIA ISABEL Plan: IV abx Cardiology Home meds biPAP Admission Status: Inpatient Order (span 2 midnights) Reason for Inpatient Admission: resp failure Diagnosis/Problems Diagnosis/Problems (1) Acute on chronic respiratory failure with hypoxia and hypercapnia Status: Acute (2) Pneumonia Status: Acute Qualifiers: Pneumonia type: due to unspecified organism Laterality: left Lung location: lower lobe of lung Qualified Codes: J18.9 - Pneumonia, unspecified organism CARMEN STRANGE DO November 07, 2020 07:08
--- NOTE | 2020-11-07 07:16 | Diagnostic Imaging Report ---
EXAMINATION: Chest 1 view HISTORY: Mild hypoxia. COMPARISON: 11/06/2020. FINDINGS: Continued cardiomegaly with central pulmonary vascular congestion. There is slight improved aeration in the perihilar regions bilaterally. No focal consolidation. No large pleural effusion or pneumothorax. No acute osseous abnormalities. IMPRESSION: 1. Cardiomegaly with improving pulmonary edema. Dictated by: Dictated on workstation # [id number]
[2020-11-07] MEDS: inSUlin ASPART (NovoLOG) 1 UNIT/0.01 ML (CHARGE PER UNIT) SC SCH ×4 (07:19→21:54)
[2020-11-07 07:28] LABS: BILIRUBIN,URINE NEGATIVE (NEGATIVE); CLARITY,URINE SL CLOUDY; COLOR,URINE YELLOW; GLUCOSE, URINE (UA) NEGATIVE (NEGATIVE); KETONES,URINE NEGATIVE (NEGATIVE); LEUKOCYTE ESTERASE ,URINE NEGATIVE (NEGATIVE); NITRITE,URINE POSITIVE (NEGATIVE); PH,URINE 6.5 (5-9); PROTEIN,URINE NEGATIVE (NEGATIVE)
[2020-11-07 07:48] LABS: BACTERIA,URINE MODERATE /HPF
[2020-11-07 07:50] LABS: TRIGLYCERIDES 112 MG/DL (<150); VLDL CHOLESTEROL 22 MG/DL (5-40)
[2020-11-07 07:55] LABS: CHOLESTEROL 146 MG/DL (< 200)
[2020-11-07 07:56] LABS: HDL CHOLESTEROL 67 MG/DL (40-60)
[2020-11-07] MEDS ORDERED: KCL 20 MEQ TAB (K-DUR) PO ONE (08:15)
[2020-11-07] MEDS: ASPIRIN E.C. 81 MG (ECOTRIN) TAB PO SCH (09:01)
--- NOTE | 2020-11-07 10:10 | Consultation-Cardiology ---
HPI-Cardiology Cardiology Consultation Date of Consultation 11/07/20 Date of Admission Time Seen by Provider: 10:04 Indication: Chest pain HPI 50-year-old lady with history of severe COPD, morbid obesity, oxygen dependent, has been having increasing dyspnea, reporting chest pressure in the retrosternal area. Came into the emergency room for evaluation, patient was admitted for c hest pain and pneumonia. Has been having pedal edema. No syncope or near syncopal episodes. No claudications. 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 Smoking Status: Never a Smoker Type Used: Cigarettes 2nd Hand Smoke Exposure: Yes Recent Hopitalizations: No Have you traveled recently?: No Immunizations Up To Date Tetanus Booster (TDap): Unknown Date of Influenza Vaccine: May 01, 2020 Past Medical History Discussed below Family Medical History Family Medical Hx Noncontributory Review of Systems-General Review of Systems Constitutional: see HPI; No chills, No diaphoresis; malaise, weakness EENTM: see HPI, no symptoms reported Respiratory: see HPI, dyspnea on exertion, short of breath, other (Oxygen dependent) Cardiovascular: see HPI; No chest pain; edema; No Hx of Intervention, No palpitations, No syncope, No vascular heart diseas, No other Gastrointestinal: no symptoms reported, see HPI Genitourinary: no symptoms reported, see HPI Musculoskeletal: no symptoms reported, see HPI; No back pain, No joint pain Skin: no symptoms reported, see HPI; No pruritus, No rash Psychiatric/Neurological: No Symptoms Reported, See HPI, Depressed; Denies Headache, Denies Numbness All Other Systems Reviewed Negative Unless Noted: Yes Reviewed Test Results Reviewed Test Results Lab Laboratory Tests Test 11/06/20 20:53 11/06/20 22:58 11/07/20 02:45 11/07/20 04:43 Range/Units White Blood Count 6.6 4.3-11.0 10^3/uL Red Blood Count 4.38 3.80-5.11 10^6/uL Hemoglobin 12.1 11.5-16.0 g/dL Hematocrit 39 35-52 % Mean Corpuscular Volume 90 80-99 fL Mean Corpuscular Hemoglobin 28 25-34 pg Mean Corpuscular Hemoglobin Concent 31 L 32-36 g/dL Red Cell Distribution Width 17.2 H 10.0-14.5 % Platelet Count 367 130-400 10^3/uL Mean Platelet Volume 9.1 9.0-12.2 fL Immature Granulocyte % (Auto) 1 % Neutrophils (%) (Auto) 53 42-75 % Lymphocytes (%) (Auto) 31 12-44 % Monocytes (%) (Auto) 10 0-12 % Eosinophils (%) (Auto) 6 0-10 % Basophils (%) (Auto) 1 0-10 % Neutrophils # (Auto) 3.5 1.8-7.8 10^3/uL Lymphocytes # (Auto) 2.0 1.0-4.0 10^3/uL Monocytes # (Auto) 0.6 0.0-1.0 10^3/uL Eosinophils # (Auto) 0.4 H 0.0-0.3 10^3/uL Basophils # (Auto) 0.0 0.0-0.1 10^3/uL Immature Granulocyte # (Auto) 0.0 0.0-0.1 10^3/uL Prothrombin Time 13.3 12.2-14.7 SEC INR Comment 1.0 0.8-1.4 Activated Partial Thromboplast Time 26 24-35 SEC Sodium Level 141 135-145 MMOL/L Potassium Level 7.0 *H 3.7 3.6-5.0 MMOL/L Chloride Level 92 L 98-107 MMOL/L Carbon Dioxide Level 34 H 21-32 MMOL/L Anion Gap 15 H 5-14 MMOL/L Blood Urea Nitrogen 14 7-18 MG/DL Creatinine 1.05 0.60-1.30 MG/DL Estimat Glomerular Filtration Rate 56 BUN/Creatinine Ratio 13 Glucose Level 242 H 70-105 MG/DL Calcium Level 8.8 8.5-10.1 MG/DL Corrected Calcium 9.0 8.5-10.1 MG/DL Magnesium Level 1.8 1.6-2.4 MG/DL Total Bilirubin 0.5 0.1-1.0 MG/DL Aspartate Amino Transf (AST/SGOT) 59 H 5-34 U/L Alanine Aminotransferase (ALT/SGPT) 30 0-55 U/L Alkaline Phosphatase 116 40-136 U/L Myoglobin 39.4 10.0-92.0 NG/ML Troponin I < 0.028 < 0.028 <0.028 NG/ML B-Type Natriuretic Peptide 27.0 <100.0 PG/ML Total Protein 8.1 6.4-8.2 GM/DL Albumin 3.8 3.2-4.5 GM/DL D-Dimer 0.42 0.00-0.49 UG/ML Lactic Acid Level 1.22 0.50-2.00 MMOL/L Blood Gas Puncture Site R BRACHIAL Blood Gas Patient Temperature 36.6 Arterial Blood pH 7.39 7.37-7.43 Arterial Blood Partial Pressure CO2 74 *H 35-45 MMHG Arterial Blood Partial Pressure O2 85 79-93 MMHG Arterial Blood HCO3 44 *H 23-27 MMOL/L Arterial Blood Total CO2 46.0 H 21.0-31.0 MMOL/L Arterial Blood Oxygen Saturation 97 94-100 % Arterial Blood Base Excess 17.6 H -2.5-2.5 MMOL/L Jaime Test NO Blood Gas Ventilator Setting NO Blood Gas Inspired Oxygen 31 L Test 11/07/20 06:00 11/07/20 06:30 Range/Units White Blood Count 6.5 4.3-11.0 10^3/uL Red Blood Count 3.98 3.80-5.11 10^6/uL Hemoglobin 11.1 L 11.5-16.0 g/dL Hematocrit 36 35-52 % Mean Corpuscular Volume 91 80-99 fL Mean Corpuscular Hemoglobin 28 25-34 pg Mean Corpuscular Hemoglobin Concent 31 L 32-36 g/dL Red Cell Distribution Width 17.1 H 10.0-14.5 % Platelet Count 327 130-400 10^3/uL Mean Platelet Volume 8.9 L 9.0-12.2 fL Immature Granulocyte % (Auto) 0 % Neutrophils (%) (Auto) 44 42-75 % Lymphocytes (%) (Auto) 37 12-44 % Monocytes (%) (Auto) 11 0-12 % Eosinophils (%) (Auto) 7 0-10 % Basophils (%) (Auto) 1 0-10 % Neutrophils # (Auto) 2.9 1.8-7.8 10^3/uL Lymphocytes # (Auto) 2.4 1.0-4.0 10^3/uL Monocytes # (Auto) 0.7 0.0-1.0 10^3/uL Eosinophils # (Auto) 0.5 H 0.0-0.3 10^3/uL Basophils # (Auto) 0.0 0.0-0.1 10^3/uL Immature Granulocyte # (Auto) 0.0 0.0-0.1 10^3/uL Sodium Level 143 135-145 MMOL/L Potassium Level 3.5 L 3.6-5.0 MMOL/L Chloride Level 93 L 98-107 MMOL/L Carbon Dioxide Level 36 H 21-32 MMOL/L Anion Gap 14 5-14 MMOL/L Blood Urea Nitrogen 14 7-18 MG/DL Creatinine 0.76 0.60-1.30 MG/DL Estimat Glomerular Filtration Rate > 60 BUN/Creatinine Ratio 18 Glucose Level 170 H 70-105 MG/DL Calcium Level 8.4 L 8.5-10.1 MG/DL Corrected Calcium 8.8 8.5-10.1 MG/DL Total Bilirubin 0.5 0.1-1.0 MG/DL Aspartate Amino Transf (AST/SGOT) 16 5-34 U/L Alanine Aminotransferase (ALT/SGPT) 23 0-55 U/L Alkaline Phosphatase 104 40-136 U/L Troponin I < 0.028 <0.028 NG/ML Total Protein 6.4 6.4-8.2 GM/DL Albumin 3.5 3.2-4.5 GM/DL Triglycerides Level 112 <150 MG/DL Cholesterol Level 146 < 200 MG/DL LDL Cholesterol Direct 70 1-129 MG/DL VLDL Cholesterol 22 5-40 MG/DL HDL Cholesterol 67 H 40-60 MG/DL Urine Color YELLOW Urine Clarity SL CLOUDY Urine pH 6.5 5-9 Urine Specific Gilbert 1.025 H 1.016-1.022 Urine Protein NEGATIVE NEGATIVE Urine Glucose (UA) NEGATIVE NEGATIVE Urine Ketones NEGATIVE NEGATIVE Urine Nitrite POSITIVE H NEGATIVE Urine Bilirubin NEGATIVE NEGATIVE Urine Urobilinogen 1.0 < = 1.0 MG/DL Urine Leukocyte Esterase NEGATIVE NEGATIVE Urine RBC (Auto) NEGATIVE NEGATIVE Urine RBC NONE /HPF Urine WBC 10-25 H /HPF Urine Squamous Epithelial Cells 5-10 /HPF Urine Crystals NONE /LPF Urine Bacteria MODERATE H /HPF Urine Casts NONE /LPF Urine Mucus NEGATIVE /LPF Urine Culture Indicated YES Physical Exam Physical Exam Vital Signs Vital Signs - First Documented 11/06/20 20:30 Temp 36.3 Pulse 89 Resp 20 B/P (MAP) 151/93 (112) Pulse Ox 99 O2 Delivery Room Air O2 Flow Rate 4.00 Capillary Refill : Less Than 3 Seconds Height, Weight, BMI Height: 5'0.00" Weight: 389lbs. 0.4oz. 176.061421sc; 74.61 BMI Method:Stated General Appearance: No Apparent Distress, Obese HEENT: PERRL/EOMI, Pharynx Normal, Moist Mucous Membranes Neck: Full Range of Motion, Normal Inspection, Non Tender Respiratory: Lungs Clear, Normal Breath Sounds, No Accessory Muscle Use, No Respiratory Distress Cardiovascular: Regular Rate, Rhythm, Normal Peripheral Pulses Gastrointestinal: Normal Bowel Sounds, Non Tender, Soft Extremity: Normal Capillary Refill, Pedal Edema Neurologic/Psychiatric: Alert, Oriented x3 Skin: Normal Color, Warm/Dry A/P-Cardiology Admission Diagnosis Chest pain Pneumonia Acute exacerbation of COPD Hypertension Assessment/Plan Chest pain nonspecific etiology, probably secondary to exacerbation of COPD. Underlying coronary artery disease cannot be entirely excluded. Continue to monitor, starting aspirin. Evaluate 2D echo, patient has been following with Dr. Edwin Hylton, started on antibiotic, managed by primary care team Acute exacerbation of COPD, baseline oxygen dependent, requiring more oxygen at this time. History of stress test done in 2019 showing no significant ischemia or infarction History of 2D echo done in 2019 showing normal LV size and function History of SVT ablation done in [facility] over 10 years ago Hypertension, monitor blood pressure Pedal edema, chronic, maintained on diuretics, discussed limiting fluid intake Morbid obesity, BMI 74, we discussed weight loss History of tubal ligation ELISABETH ARNOLD MD November 07, 2020 10:10
--- NOTE | 2020-11-07 11:07 | Diagnostic Imaging Report ---
PROCEDURE: US Venous Lower Ext Xavier. TECHNIQUE: Multiple real-time grayscale images were obtained over the lower extremities in various projections, bilaterally. Additional duplex Doppler and color Doppler images were also obtained. INDICATION: Pain. FINDINGS: The femoropopliteal deep venous system bilaterally widely patent, no deep or superficial thrombus identified. No mass or fluid collection. IMPRESSION: Normal negative bilateral lower extremity venous Doppler and ultrasound exam. Dictated by: Dictated on workstation # [id number]
[2020-11-07] MEDS ORDERED: SUMAtriptan 50 MG (IMITREX) TAB PO PRN (13:00)
[2020-11-07] MEDS ORDERED: DICLOFENAC 1% GEL 100 GM (VOLTAREN) TUBE TOP PRN (13:15)
[2020-11-07] MEDS: ENOXAPARIN 60 MG/0.6 ML (LOVENOX) SYR SC SCH (13:16)
[2020-11-07] MEDS: FUROSEMIDE 40 MG (LASIX) TAB PO SCH (14:30)
[2020-11-07 16:00] VITALS: BP 151/83
[2020-11-07 19:31] VITALS: BP 132/71
[2020-11-07] MEDS: NAPROXEN 250 MG (NAPROSYN) TABLET PO SCH (19:37)
[2020-11-07] MEDS: DIVALPROEX EXT RELEASE 500 MG (DEPAKOTE ER) TAB PO SCH (19:37)
[2020-11-07] MEDS: PREGABALIN 100 MG (LYRICA) CAPSULE PO SCH (19:37)
[2020-11-07] MEDS: meTOprolol TARTRATE 50 MG (LOPRESSOR) TAB PO SCH (19:38)
[2020-11-07] MEDS ORDERED: cefTRIAXone 1,000 MG IV (ROCEPHIN) VIAL ONE (19:42)
[2020-11-07] MEDS ORDERED: BACLOFEN 10 MG (LIORESAL) TAB PO SCH (21:00)
[2020-11-07] MEDS ORDERED: diphenhydrAMINE 25 MG TAB (BENADRYL) PO SCH (21:00)
[2020-11-07] MEDS ORDERED: PRAMIPEXOLE 0.5 MG TAB (MIRAPEX) PO SCH (21:00)
[2020-11-07 23:53] VITALS: BP 137/85
[2020-11-08] MEDS: RT-ALBUTEROL SULF 2.5 MG/3 ML PRE-MIX VIAL INH SCH ×3 (02:10→11:21)
[2020-11-08] MEDS: ENOXAPARIN 60 MG/0.6 ML (LOVENOX) SYR SC SCH (02:16)
[2020-11-08 03:07] VITALS: BP 135/87
[2020-11-08] MEDS ORDERED: MAGNESIUM 1 GM/100 ML IVPB 100 ML IV SCH (06:00)
[2020-11-08] MEDS ORDERED: KCL 20 MEQ TAB (K-DUR) PO SCH (06:00)
[2020-11-08] MEDS ORDERED: POTASSIUM CL 10MEQ/50ML IVPB 50 ML IV SCH (06:00)
[2020-11-08] MEDS: inSUlin ASPART (NovoLOG) 1 UNIT/0.01 ML (CHARGE PER UNIT) SC SCH ×2 (06:07→10:52)
[2020-11-08] MEDS: FUROSEMIDE 40 MG (LASIX) TAB PO SCH (06:07)
[2020-11-08 08:02] VITALS: BP 147/89
--- NOTE | 2020-11-08 08:30 | Progress Note - Cardiology ---
Cardiology SOAP Progress Note Objective: I&O/Vital Signs Weight (Pounds): 389 Weight (Ounces): 0.4 Weight (Calculated Kilograms): 176.045329 Constitutional: AAO x 3, well-developed, well-nourished Respiratory: No accessory muscle use, No respiratory distress; chest expansion is symmetric, chest is bilaterally symmetric, other (good air entry) Cardiovascular: regular rate-rhythm; No JVD; S1 and S2 Gastrointestional: No tender; soft, round, audible bowel sounds Extremities: significant edema Neurologic/Psychiatric: grossly intact (moves all extremities) Skin: No rash on exposed areas, No ulcerations on exposed areas Results/Procedures: Labs Microbiology 11/07/20 Blood Culture - Preliminary, Resulted No growth 11/07/20 Urine Culture - Final, Complete Gram Pos Mixed Bacterial Sylvia A/P: Assessment: Chest pain, etiology undetermined. No evidence of ACS Pneumonia - managed by primary care team Acute exacerbation of COPD, baseline oxygen dependent MPI of 08/05/18: no ischemia or infarction Echo of 10-14-20 showed LVEF 60-65%. Grade 2 diastolic dysfunction Obesity with obesity-hypoventilation and suspected MARIA ISABEL DM II Bilateral tubal ligation for control several years ago, per patient report Removal of all teeth for dental caries, per patient report Morbid obesity, BMI 75 ALIDA CONCEPCION November 08, 2020 08:30
[2020-11-08] MEDS: ASPIRIN E.C. 81 MG (ECOTRIN) TAB PO SCH (08:31)
[2020-11-08] MEDS: DIVALPROEX EXT RELEASE 500 MG (DEPAKOTE ER) TAB PO SCH (08:32)
[2020-11-08] MEDS: meTOprolol TARTRATE 50 MG (LOPRESSOR) TAB PO SCH (08:32)
[2020-11-08] MEDS: PREGABALIN 100 MG (LYRICA) CAPSULE PO SCH (08:32)
[2020-11-08] MEDS: NAPROXEN 250 MG (NAPROSYN) TABLET PO SCH (08:33)
[2020-11-08] MEDS ORDERED: PANTOPRAZOLE 40 MG (PROTONIX) TAB PO SCH (09:00)
[2020-11-08] MEDS ORDERED: LOSARTAN 100 MG (COZAAR) TABLET PO SCH (09:00)
[2020-11-08] MEDS ORDERED: LEVOTHYROXINE 100 MCG (LEVOTHROID) TAB PO SCH (09:00)
--- NOTE | 2020-11-08 11:30 | Discharge Summary ---
Diagnosis/Chief Complaint Date of Admission November 06, 2020 at 23:40 Date of Discharge 11/08/20 Admission Diagnosis Admission Diagnosis Acute on Chronic Respiratory Failure Atypical Chest Pain PNA COPD Exacerbation Oxygen dependence Obesity hypoventaliation DM BMI 75 Discharge Diagnosis See Above Discharge Summary-Simple/Stand Consultations Discharge Physical Examination Allergies: Coded Allergies: duloxetine (Verified Allergy, Unknown, 03/17/20) tramadol (Verified Allergy, Unknown, 03/17/20) butorphanol (Unverified Adverse Reaction, Severe, 08/04/18) HALLUCINATIONS Penicillins (Unverified Adverse Reaction, Unknown, NAUSEA, 08/04/18) Vitals & I&Os Vital Sign - Last 12Hours Date Time Temp Pulse Resp B/P (MAP) Pulse Ox O2 Delivery O2 Flow Rate FiO2 11/08/20 10:48 98 3.00 11/08/20 09:17 Nasal Cannula 11/08/20 08:02 36.3 98 16 147/89 (108) Intake and Output 11/08/20 00:00 Intake Total 1280 ml Output Total 2125 ml Balance -845 ml General Appearance: Alert, Oriented X3, Mild Distress (with any activitiy), Other (morbid obesity) Respiratory: Clear to Auscultation, Normal Air Movement Cardiovascular: Regular Rate, No Murmurs Abdominal: Normal Bowel Sounds, Soft, No Tenderness, No Masses Extremities: No Edema, No Tenderness/Swelling Skin: No Rashes, No Breakdown Neuro: Normal Speech, Strength at 5/5 X4 Ext, Sensation Intact, Cranial Nerves 3-12 NL Psych/Mental Status: Mental Status NL, Mood NL Hospital Course Was the Problem List Reviewed?: Yes See final discharge diagnosis. Discussion & Recommendations 50 yo morbidly obese F that presented with worsening shortness of breath and chest pain. Patient was seen by cardiology and CE neg. Patient was able to tolerate titration down to her baseline oxygen. On the day of discharge she was satting normally on home oxygen level and states that the chest pain had resolved. Discharge Condition at discharge stable Instructions to patient/family Please see electronic discharge instructions given to patient. Discharge Medications Reviewed and agree with Discharge Medication list on patient's Discharge Instruction sheet NADEEN BALL MD November 08, 2020 11:30
[2020-11-08] MEDS ORDERED: CEFD300C3 PO (11:33)
[2020-11-08] MEDS ORDERED: AZIT250T12 PO (11:33)
[2020-11-08] MEDS ORDERED: ASPI-1238 PO (11:33)
--- NOTE | 2020-11-08 11:35 | Discharge Summary ---
Discharge [facility] Reconcile Patient Problems Problems Reviewed?: Yes Discharge Medications New, Converted or Re-Newed RX: Transmitted to Pharmacy New Medications: Cefdinir (Cefdinir) 300 Mg Capsule 300 MG PO BID, #8 CAP Aspirin (Aspirin EC) 81 Mg Tablet.dr 81 MG PO DAILY, #30 TAB Azithromycin (Azithromycin) 250 Mg Tablet 500 MG PO HS, #4 TAB Continued Medications: Albuterol Sulfate (Albuterol Sulfate) 2.5 Mg/3 Ml Vial.neb 2.5 MG INH Q6H PRN for SHORTNESS OF BREATH, EA Albuterol Sulfate (Proventil Hfa) 6.7 Gm Hfa.aer.ad 2 PUFF INH Q6H PRN for SHORTNESS OF BREATH, EACH Atorvastatin Calcium (Atorvastatin Calcium) 40 Mg Tablet 40 MG PO HS, TAB Baclofen (Baclofen) 10 Mg Tablet 10 MG PO HS, TAB Diclofenac Sodium (Diclofenac Sodium) 100 Gm Gel..gram. 1 APPLIC TP UD PRN for PAIN-BREAKTHROUGH, TUBE Divalproex Sodium (Divalproex Sodium ER) 500 Mg Tab.er.24h 500 MG PO BID, TAB LAST FILLED 08-04-2020 #60/30 DAY SUPPLY Furosemide (Furosemide) 40 Mg Tablet 40 MG PO BID, TAB Hydrochlorothiazide (Hydrochlorothiazide) 25 Mg Tablet 25 MG PO DAILY, TAB LAST FILLED 08-04-2020 #30/30 DAY SUPPLY Insulin Aspart (Novolog) 100 Unit/1 Ml Susp UNIT SQ UD, EACH USES PER PUMP Levothyroxine Sodium (Levothyroxine Sodium) 200 Mcg Tablet 200 MCG PO DAILY, TAB Losartan Potassium (Losartan Potassium) 100 Mg Tablet 100 MG PO DAILY, TAB LAST FILLED 08-04-2020 #30/30 DAY SUPPLY Metoprolol Tartrate (Metoprolol Tartrate) 100 Mg Tablet 100 MG PO BID, TAB Naproxen (Naproxen) 500 Mg Tablet 500 MG PO BID, TAB Pantoprazole Sodium (Pantoprazole Sodium) 40 Mg Tablet.dr 40 MG PO DAILY, TAB Pramipexole Di-HCl (Pramipexole Dihydrochloride) 1 Mg Tablet 1 MG PO HS, TAB Pregabalin (Lyrica) 200 Mg Capsule 200 MG PO BID, CAP LAST FILLED 08-18-2020 #60/30 DAY SUPPLY Sumatriptan Succinate (Sumatriptan Succinate) 100 Mg Tablet 100 MG PO UD PRN for MIGRAINE, TAB Patient Instructions Goal/Follow Up Appt: Keep your f.u appt on with Simona Addison Patient Instructions: - Make sure to complete your antibiotics - Discussed with patient that she needs to focus on some weight loss due to declining mobility and comorbid medical conditions Activity & Diet Discharge Diet: ADA Diet, Cardiac Diet Activity as Tolerated: Yes NADEEN BALL MD November 08, 2020 11:35
--- NOTE | 2020-11-08 16:41 | Progress Note - Cardiology ---
Cardiology SOAP Progress Note Subjective: No cp or palp or syncope Shortness of breath better Marked gen malaise and tiredness Objective: I&O/Vital Signs 11/08/20 11/08/20 11/08/20 11/08/20 06:23 08:02 09:17 10:48 Temp 36.3 Pulse 98 Resp 16 B/P (MAP) 147/89 (108) Pulse Ox 94 91 95 98 O2 Delivery Nasal Cannula Nasal Cannula Nasal Cannula O2 Flow Rate 1.00 1.00 3.00 3.00 11/08/20 11:50 B/P (MAP) 11/07/20 23:59 Intake Total 1280 ml Output Total 2125 ml Balance -845 ml Weight (Pounds): 389 Weight (Ounces): 0.4 Weight (Calculated Kilograms): 176.126605 Constitutional: AAO x 3, well-developed, well-nourished Respiratory: No accessory muscle use, No respiratory distress; chest expansion is symmetric, chest is bilaterally symmetric, other (good air entry) Cardiovascular: regular rate-rhythm; No JVD; S1 and S2 Gastrointestional: No tender; soft, round, audible bowel sounds Extremities: significant edema Neurologic/Psychiatric: grossly intact (moves all extremities) Skin: No rash on exposed areas, No ulcerations on exposed areas Results/Procedures: Labs Laboratory Tests 11/07/20 20:33: Glucometer 224H 11/08/20 05:10: Glucometer 211H 11/08/20 10:40: Glucometer 242H Microbiology 11/07/20 Blood Culture - Preliminary, Resulted No growth 11/07/20 Urine Culture - Final, Complete Gram Pos Mixed Bacterial Sylvia A/P: Assessment: Chest pain, etiology undetermined. No evidence of ACS Pneumonia - managed by primary care team Acute exacerbation of COPD, baseline oxygen dependent MPI of 08/05/18: no ischemia or infarction Echo of 10-14-20 showed LVEF 60-65%. Grade 2 diastolic dysfunction Obesity with obesity-hypoventilation and suspected MARIA ISABEL DM II Bilateral tubal ligation for control several years ago, per patient report Removal of all teeth for dental caries, per patient report Morbid obesity, BMI 75 Plan: * Risk factor mod advised and reviewed * Bariatric surgery options reviewed (to control wgt that appears to be at the root of her problems) * Questions answered * Monitor labs JESSICA LAIRD MD FACP [facility] November 08, 2020 16:41
== END 2020-11-08 11:30 | disposition home or self-care (01) ==
LOC: EDUNIT# 20:29 → ER 20:30 → ICU 23:40 → 4TH 11-07 17:34
PROVIDERS: ADMIT Internal Medicine; ATTEND Family Medicine
DX: J96.21 Acute and chronic respiratory failure with hypoxia (principal); J18.9 Pneumonia, unspecified organism; J44.1 Chronic obstructive pulmonary disease with (acute) exacerbation; I50.9 Heart failure, unspecified; I10 Essential (primary) hypertension; I25.10 Atherosclerotic heart disease of native coronary artery without angina pectoris; I25.2 Old myocardial infarction; I24.9 Acute ischemic heart disease, unspecified; E66.2 Morbid (severe) obesity with alveolar hypoventilation; E11.40 Type 2 diabetes mellitus with diabetic neuropathy, unspecified; M79.7 Fibromyalgia; G89.29 Other chronic pain; E03.9 Hypothyroidism, unspecified; G40.909 Epilepsy, unspecified, not intractable, without status epilepticus; N39.0 Urinary tract infection, site not specified; E78.00 Pure hypercholesterolemia, unspecified; G43.909 Migraine, unspecified, not intractable, without status migrainosus; F32.9 Major depressive disorder, single episode, unspecified; F41.9 Anxiety disorder, unspecified; Z79.890 Hormone replacement therapy; Z99.89 Dependence on other enabling machines and devices; Z88.0 Allergy status to penicillin; Z88.5 Allergy status to narcotic agent; Z79.4 Long term (current) use of insulin; Z68.45 Body mass index [BMI] 70 or greater, adult
CPT/HCPCS: 71045 ×2; 71260; 80053 ×2; 80061; 81000; 82805; 82947 ×2; 83605; 83735; 83874; 83880; 84132; 84484 ×2; 85025 ×2; 85379; 85610; 85730; 87040; 87088; 93005 ×2; 93041; 93970; 94640 ×3; 94660 ×2; 94760 ×2; 94761; 99284; G0378; 36415

== ENCOUNTER 2020-11-09 10:00 | Outpatient (RCR) | payer MEDICAID ==
[2020-10-28 12:23] VITALS: BP 190/82
[~2020-11-09] VITALS: Ht 152.4 cm; Wt 176.4 kg
[~2020-11-09 10:00] MED LIST changes: +ASPI-1238 PO; +CEFD300C3 PO; +DICL100G13 TOP; -DICL100G31 TOP
[2020-11-16] MEDS ORDERED: DOXY100T2 PO (14:40)
[2020-11-16] MEDS ORDERED: ACHD5005 PO (15:44)
[2020-11-19] MEDS ORDERED: FLUT1BLS IH (10:54)
[2020-11-19] MEDS ORDERED: DOXY100T2 PO (10:54)
[2020-11-19] MEDS ORDERED: PREG200C28 PO (10:54)
[2020-11-19] MEDS ORDERED: ASPI-1238 PO (10:54)
[2020-11-19] MEDS ORDERED: ACHD5005 PO (10:54)
[2020-12-18] MEDS ORDERED: POTA-51 PO (02:39)
[2020-12-18] MEDS ORDERED: ONDA4TAB11 SL (02:39)
[2020-12-18] MEDS ORDERED: INSU100V42 SQ (02:39)
[2020-12-18] MEDS ORDERED: NF-SOLIF5T PO (03:04)
[2020-12-18] MEDS ORDERED: [UNRECOGNIZED DRUG - CODE] TP (03:08)
[2020-12-20] MEDS ORDERED: DICL100G27 TP (14:44)
[2020-12-21] MEDS ORDERED: NITR100C10 PO (11:50)
[2021-01-21] MEDS ORDERED: IPRA3AMP31 IH (17:37)
[2021-01-21] MEDS ORDERED: bipap INH (17:37)
== END 2021-01-26 | disposition home or self-care (01) ==
LOC: PULM 10:00
PROVIDERS: ATTEND Nurse Practitioner Family
DX: J98.4 Other disorders of lung (principal)
CPT/HCPCS: G0463 ×2; 99211

== ENCOUNTER 2020-11-16 11:45 | Emergency (ER) | payer MEDICAID ==
[~2020-11-16] VITALS: Ht 152.4 cm; Wt 172.4 kg
[~2020-11-16 11:45] MED LIST changes: -DICL100G13 TOP; +DICL100G31 TOP
[2020-11-16] MEDS ORDERED: fentaNYL INJ 100 MCG/2 ML AMP IVP ONE ×2 (12:15→15:00)
[2020-11-16] MEDS ORDERED: ONDANSETRON 4 MG/2 ML (SDV) Z0FRAN IVP ONE (12:15)
--- NOTE | 2020-11-16 12:23 | ED Abdominal Pain ---
General Chief Complaint: Abdominal/GI Problems Stated Complaint: ABD PAIN Nursing Triage Note: PT BROUGHT IN BY [facility] FROM HOME WITH COMPLAINT OF ABD PAIN AND NAUSEA. STATES STARTED WHEN SHE WOKE UP ABOUT AN HOUR [employer]. Sepsis Screen: No Definite Risk Source of Information: Patient Exam Limitations: No Limitations History of Present Illness Date Seen by Provider: November 16, 2020 Time Seen by Provider: 11:45 Initial Comments This is a chronically ill 50 yo female who presented to the ER with c/o sudden onset diffuse 8/10, sharp, constant.upper abdominal pain that started shortly after she woke up this afternoon, approximately 1 hour prior to arrival. Additionally reports nausea without emesis. States she has a history of diabetes and currently uses insulin pump. Reports no issues regarding pump. States that she was fine prior to sudden onset of pain and had no previous symptoms. Denies fever, chills, cough, shortness of breath, chest pain. Allergies and Home Medications Allergies Coded Allergies: duloxetine (Verified Allergy, Unknown, 03/17/20) tramadol (Verified Allergy, Unknown, 03/17/20) butorphanol (Unverified Adverse Reaction, Severe, 08/04/18) HALLUCINATIONS Penicillins (Unverified Adverse Reaction, Unknown, NAUSEA, 08/04/18) Home Medications Albuterol Sulfate 2.5 Mg/3 Ml Vial.neb, 2.5 MG INH Q6H PRN for SHORTNESS OF BREATH, (Reported) Albuterol Sulfate 6.7 Gm Hfa.aer.ad, 2 PUFF INH Q6H PRN for SHORTNESS OF BREATH, (Reported) Aspirin 81 Mg Tablet.dr, 81 MG PO DAILY Prescribed by: NADEEN BALL on 11/08/20 113 Atorvastatin Calcium 40 Mg Tablet, 40 MG PO HS, (Reported) Azithromycin 250 Mg Tablet, 500 MG PO HS Prescribed by: NADEEN BALL on 11/08/20 1133 Baclofen 10 Mg Tablet, 10 MG PO HS, (Reported) Cefdinir 300 Mg Capsule, 300 MG PO BID Prescribed by: NADEEN BALL on 11/08/20 1133 Diclofenac Sodium 100 Gm Gel..gram., 1 APPLIC TP UD PRN for PAIN-BREAKTHROUGH, (Reported) Divalproex Sodium 500 Mg Tab.er.24h, 500 MG PO BID, (Reported) LAST FILLED 08-04-2020 #60/30 DAY SUPPLY Doxycycline Hyclate 100 Mg Tablet, 100 MG PO BID Prescribed by: GÉNESIS TO on 11/16/20 1440 Furosemide 40 Mg Tablet, 40 MG PO BID, (Reported) Hydrochlorothiazide 25 Mg Tablet, 25 MG PO DAILY, (Reported) LAST FILLED 08-04-2020 #30/30 DAY SUPPLY Hydrocodone/Acetaminophen 1 Each Tablet, 1 TAB PO Q6H PRN for PAIN-MODERATE (5- 7) Prescribed by: GÉNESIS TO on 11/16/20 1544 Insulin Aspart 100 Unit/1 Ml Susp, UNIT SQ UD, (Reported) USES PER PUMP Levothyroxine Sodium 200 Mcg Tablet, 200 MCG PO DAILY, (Reported) Losartan Potassium 100 Mg Tablet, 100 MG PO DAILY, (Reported) LAST FILLED 08-04-2020 #30/30 DAY SUPPLY Metoprolol Tartrate 100 Mg Tablet, 100 MG PO BID, (Reported) Naproxen 500 Mg Tablet, 500 MG PO BID, (Reported) Pantoprazole Sodium 40 Mg Tablet.dr, 40 MG PO DAILY, (Reported) Pramipexole Di-HCl 1 Mg Tablet, 1 MG PO HS, (Reported) Pregabalin 200 Mg Capsule, 200 MG PO BID, (Reported) LAST FILLED 08-18-2020 #60/30 DAY SUPPLY Sumatriptan Succinate 100 Mg Tablet, 100 MG PO UD PRN for MIGRAINE, (Reported) Patient Home Medication List Home Medication List Reviewed: Yes Review of Systems Review of Systems Constitutional: see HPI EENTM: No Symptoms Reported Respiratory: No Symptoms Reported Cardiovascular: No Symptoms Reported Gastrointestinal: See HPI Genitourinary: No Symptoms Reported Musculoskeletal: back pain, muscle weakness Skin: other (Erythema underneath abdominal fold.) Endocrine: No Symptoms Reported Hematologic/Lymphatic: No Symptoms Reported Past Zrlckwf-Vbjenv-Gwnjfu Hx Patient Social History Alcohol Use: Denies 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 Smoking Status: Former Smoker Type Used: Cigarettes Former Smoker, Quit: Oct 28, 1993 2nd Hand Smoke Exposure: Yes Recent Infectious Disease Expo: No Recent Hopitalizations: No Immunizations Up To Date Tetanus Booster (TDap): Unknown PED Vaccines UTD: Yes Date of Influenza Vaccine: May 01, 2020 Seasonal Allergies Seasonal Allergies: No Past Medical History Surgeries: Yes Cardiac, Section, Gallbladder, Orthopedic, Tubal Ligation Respiratory: Yes (RESTRICTIVE LUNG DISEASE; LEFT CHEST DEFORMITY) Asthma, Pneumonia, Chronic Bronchitis, Sleep Apnea, COPD Currently Using CPAP: No Currently Using BIPAP: No Cardiac: Yes (Congestive heart failure) Coronary Artery Disease, Heart Attack, High Cholesterol, Hypertension Neurological: Yes Headaches /Migraines, Neuropathy, Seizure Disorder Reproductive Disorders: No Genitourinary: Yes UTI-Chronic Gastrointestinal: Yes (Reports celiac disease) Ulcer Musculoskeletal: Yes Fibromyalgia, Scoliosis, Chronic Back Pain Endocrine: Yes (MORBID OBESITY) Diabetes, Insulin dep, Hypothyroidsim HEENT: Yes Cancer: No Psychosocial: Yes Anxiety, Depression Integumentary: No Blood Disorders: No Family Medical History Noncontributory Physical Exam Vital Signs Vital Signs - First Documented 11/16/20 11:45 Temp 36.5 Pulse 75 Resp 16 B/P (MAP) 148/89 (108) Pulse Ox 99 O2 Delivery Nasal Cannula O2 Flow Rate 3.00 Capillary Refill : Less Than 3 Seconds Height/Weight/BMI Height: 5'0.00" Weight: 389lbs. 0.4oz. 176.560379gp; 74.00 BMI Method:Stated General Appearance: WD/WN, no apparent distress HEENT: PERRL/EOMI, pharynx normal; No scleral icterus (R), No scleral icterus (L) Neck: non-tender, limited range of motion (, due to large body habitus) Respiratory: chest non-tender, lungs clear, normal breath sounds, no respiratory distress Cardiovascular: regular rate, rhythm, no murmur Gastrointestinal: normal bowel sounds, distended, other (Unable to palpate organs due to large body habitus. Tenderness over mid epigastric and umbilical region with light palpation.) Back: decreased range of motion Neurologic/Psychiatric: alert, normal mood/affect, oriented x 3, motor weakness (Generalized) Skin: warm/dry; No diaphoresis, No jaundice; other (Multiple circular areas of bruising and erythema on abdomen from insulin pump.) Focused Exam Lactate Level 11/16/20 12:32: Lactic Acid Level 1.02 Lactic Acid Level Laboratory Tests Test 11/16/20 12:32 Lactic Acid Level 1.02 MMOL/L (0.50-2.00) Progress/Results/Core Measures Results/Orders Lab Results Laboratory Tests Test 11/16/20 12:09 11/16/20 12:32 11/16/20 14:14 Range/Units White Blood Count 7.9 4.3-11.0 10^3/uL Red Blood Count 3.97 3.80-5.11 10^6/uL Hemoglobin 11.3 L 11.5-16.0 g/dL Hematocrit 37 35-52 % Mean Corpuscular Volume 92 80-99 fL Mean Corpuscular Hemoglobin 29 25-34 pg Mean Corpuscular Hemoglobin Concent 31 L 32-36 g/dL Red Cell Distribution Width 18.1 H 10.0-14.5 % Platelet Count 308 130-400 10^3/uL Mean Platelet Volume 9.5 9.0-12.2 fL Immature Granulocyte % (Auto) 0 % Neutrophils (%) (Auto) 51 42-75 % Lymphocytes (%) (Auto) 35 12-44 % Monocytes (%) (Auto) 9 0-12 % Eosinophils (%) (Auto) 5 0-10 % Basophils (%) (Auto) 1 0-10 % Neutrophils # (Auto) 4.0 1.8-7.8 10^3/uL Lymphocytes # (Auto) 2.7 1.0-4.0 10^3/uL Monocytes # (Auto) 0.7 0.0-1.0 10^3/uL Eosinophils # (Auto) 0.4 H 0.0-0.3 10^3/uL Basophils # (Auto) 0.1 0.0-0.1 10^3/uL Immature Granulocyte # (Auto) 0.0 0.0-0.1 10^3/uL Sodium Level 139 135-145 MMOL/L Potassium Level 4.3 3.6-5.0 MMOL/L Chloride Level 98 98-107 MMOL/L Carbon Dioxide Level 33 H 21-32 MMOL/L Anion Gap 8 5-14 MMOL/L Blood Urea Nitrogen 20 H 7-18 MG/DL Creatinine 0.80 0.60-1.30 MG/DL Estimat Glomerular Filtration Rate > 60 BUN/Creatinine Ratio 25 Glucose Level 151 H 70-105 MG/DL Calcium Level 8.1 L 8.5-10.1 MG/DL Corrected Calcium 8.4 L 8.5-10.1 MG/DL Total Bilirubin 0.3 0.1-1.0 MG/DL Aspartate Amino Transf (AST/SGOT) 18 5-34 U/L Alanine Aminotransferase (ALT/SGPT) 16 0-55 U/L Alkaline Phosphatase 110 40-136 U/L Lactate Dehydrogenase 322 H 125-220 U/L Total Creatine Kinase 52 29-168 U/L C-Reactive Protein High Sensitivity 1.23 H 0.00-0.50 MG/DL Total Protein 6.6 6.4-8.2 GM/DL Albumin 3.6 3.2-4.5 GM/DL Lipase 26 8-78 U/L Lactic Acid Level 1.02 0.50-2.00 MMOL/L Prothrombin Time 13.5 12.2-14.7 SEC INR Comment 1.0 0.8-1.4 Activated Partial Thromboplast Time 23 L 24-35 SEC Micro Results Microbiology 11/16/20 Blood Culture - Preliminary, Resulted No growth 11/16/20 Blood Culture - Preliminary, Resulted No growth My Orders Orders - GÉNESIS TO SIZE STAMPER Cbc With Automated Diff (11/16/20 12:12) Comprehensive Metabolic Panel (11/16/20 12:12) Blood Culture (11/16/20 12:12) Protime With Inr (11/16/20 12:12) Partial Thromboplastin Time (11/16/20 12:12) Chest 1 View, Ap/Pa Only (11/16/20 12:12) Ed Iv/Invasive Line Start (11/16/20 12:12) Vital Signs Adult Sepsis Patie Q15M (11/16/20 12:12) O2 (11/16/20 12:12) Lactic Acid Analyzer (11/16/20 12:12) LDH (11/16/20 12:12) Creatine Kinase (11/16/20 12:12) Hs C Reactive Protein (11/16/20 12:12) Lipase (11/16/20 12:12) Ondansetron Injection (Zofran Injectio (11/16/20 12:15) Fentanyl Inj (Sublimaze Injection) (11/16/20 12:15) Ct Abdomen/Pelvis W (11/16/20 12:39) Doxycycline Hyclate Tablet (Vibramycin T (11/16/20 14:00) Us Soft Tissue Unlisted [id number] (11/16/20 13:40) Hydrocodone/Apap 5/325 Tablet (Lortab 5 (11/16/20 15:15) Medications Given in ED Vital Signs/I&O 11/16/20 11/16/20 11/16/20 11:45 11:45 16:15 Temp 36.5 Pulse 75 81 Resp 16 16 B/P (MAP) 148/89 (108) 119/61 Pulse Ox 99 97 O2 Delivery Nasal Cannula Room Air Nasal Cannula O2 Flow Rate 3.00 3.00 Blood Pressure Mean: 108 Progress Progress Note : Progress Note This is an extremely obese female who appears in no acute distress other than increased pain. However she does have significant comorbidities and her physical exam is difficult due to large body habitus. Orders placed for septic work-up, mesenteric ischemia, pancreatitis, other infectious etiologies. Orders given for fentanyl 50 mcg IV push pain and Zofran 4 mg IV push, additionally orders placed for CT abdomen pelvis with contrast pending results of renal function. Labs reviewed and are relatively unremarkable. WBC7.9, lactic acid- 1.02, MCZ808, CRP1.23. Chest x-ray questionable bibasilar infiltrates. CT abdomen pelvis shows subcutaneous edema and skin thickening in the periumbil ical umbilical abdominal wall, questionable cellulitis or panniculitis. No abscess or foreign body detected. Reviewed case with Dr. Dao, general surgeon on-call. Recommended obtaining ultrasound to assess severity of infection. Recommended placing patient on antibiotics and having her follow-up with her primary care provider outpatient to ensure resolution of infection. Ultrasound soft tissue abdomen shows edema in the pannus which could represent early panniculitis, no abscess or necrotizing fasciitis at this time. Her labs are reassuring for neg severe infection. Patient reports feeling much improved after Zofran and fentanyl. Discussed placing her on doxycycline at this would cover any infectious process of the lung/and early panniculitis. Will provide hydrocodone for pain relief. Discussed having close follow-up with her primary care provider. She can always return to the emergency department if her symptoms worsen. Reviewed discharge plan of care and she is agreeable with Diagnostic Imaging Diagonstic Imaging: Xray Plain Films/CT/US/NM/MRI: chest Comments [facility] [place], [place] NAME: DHEERAJ HADDADBHAVANI Shah MED REC#: [id number] PT STATUS: DEP ER : 1970 PHYSICIAN: GÉNESIS TO SIZE STAMPER ADMIT DATE: 11/16/20/ER Signed Date of Exam:11/16/20 CHEST 1 VIEW, AP/PA ONLY INDICATION: Shortness of breath. Sepsis. COMPARISON: 11/07/2020. FINDINGS: The cardiac silhouette is quite enlarged, however this was shown to be predominantly fatty in nature on CT scan of 11/06/2020. There has been increase in bilateral interstitial and alveolar infiltrates since previous exam. Increased density is more severe in the lung bases. No pneumothorax noted. Could not exclude small pleural effusions. IMPRESSION: Persistent bilateral infiltrates with increasing bibasilar alveolar infiltrates since previous exam. With normal-appearing cardiac size on previous CT scan, infectious process is most likely in light of patient's sepsis. Dictated by: Dictated on workstation # [id number] Dict: 11/16/20 1320 Trans: 11/16/20 170 AS6 [id number] Interpreted by: NAOMY SOSA MD Electronically signed by: NAOMY SOSA MD 11/16/201701 Reviewed: Reviewed by Nd Diagonstic Imaging: CT Plain Films/CT/US/NM/MRI: abdomen, pelvis Comments [facility] [place], [place] NAME: JOSIAS HADDAD [facility] REC#: [id number] PT STATUS: DEP ER : 1970 PHYSICIAN: GÉNESIS TO SIZE STAMPER ADMIT DATE: 11/16/20/ER Signed Date of Exam:11/16/20 CT ABDOMEN/PELVIS W PROCEDURE: CT abdomen and pelvis with contrast. TECHNIQUE: Multiple contiguous axial images were obtained through the abdomen and pelvis after administration of intravenous contrast. Auto Exposure Controls were utilized during the CT exam to meet ALARA standards for radiation dose reduction. All CT scans use one or more of the following dose optimizing techniques: automated exposure control, MA and/or KvP adjustment based on patient size and exam type or iterative reconstruction. INDICATION: Nausea with abdominal pain. COMPARISON: The exam is correlated with overlapped images from a chest CT of 11/06/2020 and the most recent abdominal/pelvic dedicated imaging dated 12/19/2019. FINDINGS: There is some skin thickening and edematous infiltration of the intra-abdominal wall fat at and most notably below the level of the umbilicus through the pannus. No foreign body gas or fluid collection. No appreciable abscess. The lung bases show some mild infrahilar and basilar partial atelectasis. The gallbladder is surgically absent. The liver is nonfocal. The spleen is unremarkable. The adrenals are negative. The kidneys are unobstructed. There is no ileus or bowel obstruction. The pancreas appears normal. The aortoiliac and mesenteric vessels are patent and nonaneurysmal. There is no appendicitis or diverticulitis. The uterus, adnexa, and urinary bladder are unremarkable. No ascites. No inflammatory changes, mass, or fluid collection intra or retroperitoneal. IMPRESSION: 1. The abdominal/pelvic solid and hollow viscera are unobstructed and nonacute. 2. However, subcutaneous edema and skin thickening in the periumbilical and infraumbilical abdominal wall raises the question of cellulitis or panniculitis. No abscess, foreign body, gas, or drainable fluid collection, however. Dictated by: Dictated on workstation # [id number] Dict: 11/16/20 1320 Trans: 11/16/20 1644 [id number] Interpreted by: BRIA AMEZQUITA Electronically signed by: BRIA AMEZQUITA 11/16/20 1644 Reviewed: Reviewed by Nd Diagonstic Imaging: Ultrasound Plain Films/CT/US/NM/MRI: abdomen Comments [facility] [place], [place] NAME: JOSIAS HADDAD [facility] REC#: [id number] PT STATUS: DEP ER : 1970 PHYSICIAN: GÉNESIS TO SIZE STAMPER ADMIT DATE: 11/16/20/ER Signed Date of Exam:11/16/20 US SOFT TISSUE UNLISTED [id number] INDICATION: Abdominal pain. Abnormal CT scan. COMPARISON with CT scan 11/16/2020. FINDINGS: Real-time imaging along the lower abdominal wall pannus shows a thick layer of fat. This is homogeneous in nature. There are no changes that would suggest abscess. No findings are seen that would indicate necrotizing fasciitis. IMPRESSION: 1. Edema noted in the pannus of the lower abdomen could represent early panniculitis though there are no findings that would indicate abscess or necrotizing fasciitis at this time. Dictated by: Dictated on workstation # [id number] Dict: 11/16/20 1529 Trans: 11/16/20 170 [facility] [id number] Interpreted by: NAOMY SOSA MD Electronically signed by: NAOMY SOSA MD 11/16/201701 Reviewed: Reviewed by Me Departure Impression Primary Impression: Panniculitis Disposition: HOME, SELF-CARE Condition: Improved Departure-Patient Inst. Decision time for Depature: 15:40 Referrals: NO,LOCAL PHYSICIAN (PCP/Family) Primary Care Physician Patient Instructions: Cellulitis (Skin Infection), Adult (DC) Add. Discharge Instructions: Plan: 1. Discharge home. Keep abdominal fold dry, may use pillow case to keep excessive moisture from developing. 2. Take Hydrocodone 5/325mg by mouth every 6 hours as needed for pain. This may cause constipation so take a stool softener and drink plenty of fluid. 3. Take antibiotics as directed and complete full course. 4. Follow up with your primary care provider next week. 5. Return for any new, concerning, or worsening symptoms. All discharge instructions reviewed with patient and/or family. Voiced understanding. Scripts Hydrocodone/Acetaminophen (Hydrocodone-Acetamin 5-325 mg) 1 Each Tablet 1 TAB PO Q6H PRN for PAIN-MODERATE (5-7) for 3 Days, #12 TAB 0 Refills Prov: GÉNESIS TO SIZE STAMPER 11/16/20 Doxycycline Hyclate (Doxycycline Hyclate) 100 Mg Tablet 100 MG PO BID for 10 Days, #20 TAB 0 Refills Prov: GÉNESIS TO SIZE STAMPER 11/16/20 GÉNESIS TO SIZE STAMPER November 16, 2020 12:23
[2020-11-16 12:26] LABS: ALBUMIN 3.6 GM/DL (3.2-4.5); CHLORIDE 98 MMOL/L (98-107); POTASSIUM 4.3 MMOL/L (3.6-5.0); SODIUM 139 MMOL/L (135-145)
[2020-11-16 12:27] LABS: BASOPHILS # (AUTO) 0.1 10^3/uL (0.0-0.1); BASOPHILS % (AUTO) 1 % (0-10); CALCIUM 8.1 MG/DL (8.5-10.1); EOSINOPHILS # (AUTO) 0.4 10^3/uL (0.0-0.3); EOSINOPHILS % (AUTO) 5 % (0-10); HEMATOCRIT 37 % (35-52); HEMOGLOBIN 11.3 g/dL (11.5-16.0); LYMPHOCYTES # (AUTO) 2.7 10^3/uL (1.0-4.0); LYMPHOCYTES % (AUTO) 35 % (12-44); MEAN CORPUSCULAR HEMOGLOBIN 29 pg (25-34); MEAN CORPUSCULAR HGB CONC 31 g/dL (32-36); MEAN CORPUSCULAR VOLUME 92 fL (80-99); MEAN PLATELET VOLUME 9.5 fL (9.0-12.2); MONOCYTES # (AUTO) 0.7 10^3/uL (0.0-1.0); MONOCYTES % (AUTO) 9 % (0-12); NEUTROPHILS % (AUTO) 51 % (42-75); PLATELET COUNT 308 10^3/uL (130-400); WHITE BLOOD COUNT 7.9 10^3/uL (4.3-11.0)
[2020-11-16 12:29] LABS: GLUCOSE 151 MG/DL (70-105); TOTAL PROTEIN 6.6 GM/DL (6.4-8.2)
[2020-11-16 12:30] LABS: CARBON DIOXIDE 33 MMOL/L (21-32)
[2020-11-16 12:31] LABS: BILIRUBIN,TOTAL 0.3 MG/DL (0.1-1.0)
[2020-11-16 12:32] LABS: ALKALINE PHOSPHATASE 110 U/L (40-136); GFR ESTIMATED > 60
[2020-11-16 12:34] LABS: BUN/CREATININE RATIO 25
[2020-11-16 12:35] LABS: ALANINE AMINOTRANSFERASE 16 U/L (0-55)
[2020-11-16 12:36] LABS: CREATINE KINASE 52 U/L (29-168); LIPASE 26 U/L (8-78)
[2020-11-16] MEDS ORDERED: NS 100 ML (IVPB) BAG IV ONE (13:15)
[2020-11-16] MEDS ORDERED: CATHETER FLUSH 10 ML SYR IV PRN (13:15)
[2020-11-16] MEDS ORDERED: HOLD METFORMIN - RECEIVED CONTRAST 20 ML VIAL IV SCH (13:15)
[2020-11-16] MEDS ORDERED: IOHEXOL 350 MG/ML 100 ML (OMNIPAQUE 350) VIAL IV ONE (13:15)
--- NOTE | 2020-11-16 13:26 | Diagnostic Imaging Report ---
INDICATION: Shortness of breath. Sepsis. COMPARISON: 11/07/2020. FINDINGS: The cardiac silhouette is quite enlarged, however this was shown to be predominantly fatty in nature on CT scan of 11/06/2020. There has been increase in bilateral interstitial and alveolar infiltrates since previous exam. Increased density is more severe in the lung bases. No pneumothorax noted. Could not exclude small pleural effusions. IMPRESSION: Persistent bilateral infiltrates with increasing bibasilar alveolar infiltrates since previous exam. With normal-appearing cardiac size on previous CT scan, infectious process is most likely in light of patient's sepsis. Dictated by: Dictated on workstation # [id number]
--- NOTE | 2020-11-16 13:30 | Diagnostic Imaging Report ---
PROCEDURE: CT abdomen and pelvis with contrast. TECHNIQUE: Multiple contiguous axial images were obtained through the abdomen and pelvis after administration of intravenous contrast. Auto Exposure Controls were utilized during the CT exam to meet ALARA standards for radiation dose reduction. All CT scans use one or more of the following dose optimizing techniques: automated exposure control, MA and/or KvP adjustment based on patient size and exam type or iterative reconstruction. INDICATION: Nausea with abdominal pain. COMPARISON: The exam is correlated with overlapped images from a chest CT of 11/06/2020 and the most recent abdominal/pelvic dedicated imaging dated 12/19/2019. FINDINGS: There is some skin thickening and edematous infiltration of the intra-abdominal wall fat at and most notably below the level of the umbilicus through the pannus. No foreign body gas or fluid collection. No appreciable abscess. The lung bases show some mild infrahilar and basilar partial atelectasis. The gallbladder is surgically absent. The liver is nonfocal. The spleen is unremarkable. The adrenals are negative. The kidneys are unobstructed. There is no ileus or bowel obstruction. The pancreas appears normal. The aortoiliac and mesenteric vessels are patent and nonaneurysmal. There is no appendicitis or diverticulitis. The uterus, adnexa, and urinary bladder are unremarkable. No ascites. No inflammatory changes, mass, or fluid collection intra or retroperitoneal. IMPRESSION: 1. The abdominal/pelvic solid and hollow viscera are unobstructed and nonacute. 2. However, subcutaneous edema and skin thickening in the periumbilical and infraumbilical abdominal wall raises the question of cellulitis or panniculitis. No abscess, foreign body, gas, or drainable fluid collection, however. Dictated by: Dictated on workstation # [id number]
[2020-11-16] MEDS ORDERED: DOXYCYCLINE 100 MG (VIBRAMYCIN) TABLET PO ONE (14:00)
[2020-11-16 14:39] LABS: PROTHROMBIN TIME PATIENT 13.5 SEC (12.2-14.7)
[2020-11-16] MEDS ORDERED: DOXY100T2 PO (14:40)
[2020-11-16] MEDS ORDERED: HYDROcodone/APAP 5 MG/325 MG (LORTAB) TAB PO ONE (15:15)
[2020-11-16] MEDS ORDERED: ACETAMINOPHEN 325 MG TABLET PO ONE (15:15)
--- NOTE | 2020-11-16 15:37 | Diagnostic Imaging Report ---
INDICATION: Abdominal pain. Abnormal CT scan. COMPARISON with CT scan 11/16/2020. FINDINGS: Real-time imaging along the lower abdominal wall pannus shows a thick layer of fat. This is homogeneous in nature. There are no changes that would suggest abscess. No findings are seen that would indicate necrotizing fasciitis. IMPRESSION: 1. Edema noted in the pannus of the lower abdomen could represent early panniculitis though there are no findings that would indicate abscess or necrotizing fasciitis at this time. Dictated by: Dictated on workstation # [id number]
[2020-11-16] MEDS ORDERED: ACHD5005 PO (15:44)
[2020-11-16 16:15] VITALS: BP 119/61
== END 2020-11-16 16:15 | disposition home or self-care (01) ==
LOC: EDUNIT# 11:45 → ER 11:47
DX: S30.1XXA Contusion of abdominal wall, initial encounter (principal); K65.4 Sclerosing mesenteritis; R53.1 Weakness; I11.0 Hypertensive heart disease with heart failure; I50.9 Heart failure, unspecified; I25.10 Atherosclerotic heart disease of native coronary artery without angina pectoris; E11.40 Type 2 diabetes mellitus with diabetic neuropathy, unspecified; J44.9 Chronic obstructive pulmonary disease, unspecified; E78.00 Pure hypercholesterolemia, unspecified; G43.909 Migraine, unspecified, not intractable, without status migrainosus; G40.909 Epilepsy, unspecified, not intractable, without status epilepticus; M79.7 Fibromyalgia; G89.29 Other chronic pain; M54.9 Dorsalgia, unspecified; E03.9 Hypothyroidism, unspecified; F32.9 Major depressive disorder, single episode, unspecified; E66.01 Morbid (severe) obesity due to excess calories; Z68.45 Body mass index [BMI] 70 or greater, adult; Z87.891 Personal history of nicotine dependence; Z77.22 Contact with and (suspected) exposure to environmental tobacco smoke (acute) (chronic); Z88.8 Allergy status to other drugs, medicaments and biological substances; Z88.5 Allergy status to narcotic agent; Z88.0 Allergy status to penicillin; Z79.82 Long term (current) use of aspirin; Z79.4 Long term (current) use of insulin; Z79.890 Hormone replacement therapy; Z79.1 Long term (current) use of non-steroidal anti-inflammatories (NSAID); Z79.899 Other long term (current) drug therapy; X58.XXXA Exposure to other specified factors, initial encounter
CPT/HCPCS: 36415; 71045; 74177; 76999; 80053; 82550; 83605; 83615; 83690; 85025; 85610; 85730; 86141; 87040

== ENCOUNTER 2020-11-18 10:02 | Emergency (ER) | payer MEDICAID ==
[~2020-11-18] VITALS: Ht 152 cm; Wt 174.5 kg
[~2020-11-18 10:02] MED LIST changes: +DOXY100T2 PO
[2020-11-18] MEDS: RT-ALBUTEROL/IPRATROPIUM 3 ML (DUONEB) VIAL INH ONE (10:47)
[2020-11-18 10:52] LABS: BILIRUBIN,URINE NEGATIVE (NEGATIVE); CLARITY,URINE CLEAR; COLOR,URINE YELLOW; GLUCOSE, URINE (UA) NEGATIVE (NEGATIVE); KETONES,URINE NEGATIVE (NEGATIVE); LEUKOCYTE ESTERASE ,URINE NEGATIVE (NEGATIVE); NITRITE,URINE NEGATIVE (NEGATIVE); PH,URINE 5.5 (5-9); PROTEIN,URINE TRACE (NEGATIVE)
[2020-11-18 10:59] LABS: RBC,URINE 0-2 /HPF
[2020-11-18 11:00] LABS: BACTERIA,URINE MODERATE /HPF; WBC,URINE 0-2 /HPF
[2020-11-18 11:01] LABS: HYALINE CASTS, URINE 0-2 /LPF
--- NOTE | 2020-11-18 11:15 | Diagnostic Imaging Report ---
INDICATION: Shortness of air, cough. COMPARISON: 11/16/2020 TECHNIQUE: Single frontal radiograph of the chest dated 11/18/2020 FINDINGS: Enlargement of the cardiac silhouette. Decreased prominence of the pulmonary vasculature. Significant bilateral pulmonary infiltrates are again identified, though these appear improved since the prior examination. Improved aeration of the lungs. No large volume pleural effusion. No pneumothorax. Osseous structures appear stable. IMPRESSION: Slightly improved aeration of the lungs with slightly improved though persisting bilateral pulmonary infiltrates. Persistent cardiomegaly with improved mild central pulmonary vascular congestion. Dictated by: Dictated on workstation # [id number]
[2020-11-18 12:10] LABS: BASOPHILS # (AUTO) 0.1 10^3/uL (0.0-0.1); BASOPHILS % (AUTO) 1 % (0-10); EOSINOPHILS # (AUTO) 0.3 10^3/uL (0.0-0.3); EOSINOPHILS % (AUTO) 3 % (0-10); HEMATOCRIT 41 % (35-52); LYMPHOCYTES % (AUTO) 26 % (12-44); MEAN CORPUSCULAR HEMOGLOBIN 28 pg (25-34); MEAN CORPUSCULAR HGB CONC 30 g/dL (32-36); MEAN CORPUSCULAR VOLUME 95 fL (80-99); MEAN PLATELET VOLUME 9.5 fL (9.0-12.2); MONOCYTES # (AUTO) 0.7 10^3/uL (0.0-1.0); MONOCYTES % (AUTO) 9 % (0-12); NEUTROPHILS # (AUTO) 4.4 10^3/uL (1.8-7.8); NEUTROPHILS % (AUTO) 59 % (42-75); PLATELET COUNT 305 10^3/uL (130-400); WHITE BLOOD COUNT 7.4 10^3/uL (4.3-11.0)
[2020-11-18 12:21] LABS: ALBUMIN 3.8 GM/DL (3.2-4.5)
[2020-11-18 12:22] LABS: CHLORIDE 97 MMOL/L (98-107); POTASSIUM 4.2 MMOL/L (3.6-5.0); SODIUM 144 MMOL/L (135-145)
[2020-11-18 12:23] LABS: CALCIUM 9.1 MG/DL (8.5-10.1)
[2020-11-18 12:24] LABS: GLUCOSE 94 MG/DL (70-105); TOTAL PROTEIN 6.9 GM/DL (6.4-8.2)
[2020-11-18 12:25] LABS: CARBON DIOXIDE 40 MMOL/L (21-32)
[2020-11-18 12:26] LABS: BILIRUBIN,TOTAL 0.5 MG/DL (0.1-1.0)
[2020-11-18 12:27] LABS: ALKALINE PHOSPHATASE 90 U/L (40-136)
[2020-11-18 12:28] LABS: CREATININE SERUM 0.74 MG/DL (0.60-1.30); GFR ESTIMATED > 60
[2020-11-18 12:29] LABS: BUN/CREATININE RATIO 39
[2020-11-18 12:30] LABS: MAGNESIUM 1.8 MG/DL (1.6-2.4)
[2020-11-18 12:31] LABS: ALANINE AMINOTRANSFERASE 16 U/L (0-55)
[2020-11-18 12:38] LABS: VALPROIC ACID 38.2 UG/ML (50.0-100.0)
[2020-11-18 12:53] LABS: FREE T4 (FREE THYROXINE) 0.95 NG/DL (0.70-1.48)
--- NOTE | 2020-11-18 14:30 | ED General ---
General Chief Complaint: Trauma-Non Activation Stated Complaint: FALL Nursing Triage Note: TO ED PER EMS FROM HOME FELL WALKING WITH WALKER TO BATHROOM AND COULD NOT GET UP. DENIES ANY PAIN Nursing Sepsis Screen: No Definite Risk Source of Information: Patient Exam Limitations: No Limitations History of Present Illness Date Seen by Provider: November 18, 2020 Time Seen by Provider: 10:04 Initial Comments This 50-year-old woman presents to the emergency room via EMS after falling to the floor when ambulating from the bathroom this morning. She has had frequent falls recently and has required the fire department's assistance in getting up. She has morbid obesity and anasarca and that makes it difficult for her to ambulate. She also has COPD and is dependent on supplemental oxygen. Today her legs simply "gave out" and she was not able to get back up. Her fall was gentle and there was no injury. Patient reports her trilogy device was taken yesterday and is not funded by insurance any longer. She has been able to sleep okay the past couple nights without it. Allergies and Home Medications Allergies Coded Allergies: duloxetine (Verified Allergy, Unknown, 03/17/20) tramadol (Verified Allergy, Unknown, 03/17/20) butorphanol (Unverified Adverse Reaction, Severe, 08/04/18) HALLUCINATIONS Penicillins (Unverified Adverse Reaction, Unknown, NAUSEA, 08/04/18) Home Medications Albuterol Sulfate 2.5 Mg/3 Ml Vial.neb, 2.5 MG INH Q6H PRN for SHORTNESS OF BREATH, (Reported) Albuterol Sulfate 6.7 Gm Hfa.aer.ad, 2 PUFF INH Q6H PRN for SHORTNESS OF BREATH, (Reported) Aspirin 81 Mg Tablet.dr, 81 MG PO DAILY Prescribed by: NADEEN BALL on 11/08/20 113 Atorvastatin Calcium 40 Mg Tablet, 40 MG PO HS, (Reported) Azithromycin 250 Mg Tablet, 500 MG PO HS Prescribed by: NADEEN BALL on 11/08/20 1133 Baclofen 10 Mg Tablet, 10 MG PO HS, (Reported) Cefdinir 300 Mg Capsule, 300 MG PO BID Prescribed by: NADEEN BALL on 11/08/20 1133 Diclofenac Sodium 100 Gm Gel..gram., 1 APPLIC TP UD PRN for PAIN-BREAKTHROUGH, (Reported) Divalproex Sodium 500 Mg Tab.er.24h, 500 MG PO BID, (Reported) LAST FILLED 08-04-2020 #60/30 DAY SUPPLY Doxycycline Hyclate 100 Mg Tablet, 100 MG PO BID Prescribed by: GÉNESIS TO on 11/16/20 1440 Furosemide 40 Mg Tablet, 40 MG PO BID, (Reported) Hydrochlorothiazide 25 Mg Tablet, 25 MG PO DAILY, (Reported) LAST FILLED 08-04-2020 #30/30 DAY SUPPLY Hydrocodone/Acetaminophen 1 Each Tablet, 1 TAB PO Q6H PRN for PAIN-MODERATE (5- 7) Prescribed by: GÉNESIS TO on 11/16/20 1544 Insulin Aspart 100 Unit/1 Ml Susp, UNIT SQ UD, (Reported) USES PER PUMP Levothyroxine Sodium 200 Mcg Tablet, 200 MCG PO DAILY, (Reported) Losartan Potassium 100 Mg Tablet, 100 MG PO DAILY, (Reported) LAST FILLED 08-04-2020 #30/30 DAY SUPPLY Metoprolol Tartrate 100 Mg Tablet, 100 MG PO BID, (Reported) Naproxen 500 Mg Tablet, 500 MG PO BID, (Reported) Pantoprazole Sodium 40 Mg Tablet.dr, 40 MG PO DAILY, (Reported) Pramipexole Di-HCl 1 Mg Tablet, 1 MG PO HS, (Reported) Pregabalin 200 Mg Capsule, 200 MG PO BID, (Reported) LAST FILLED 08-18-2020 #60/30 DAY SUPPLY Sumatriptan Succinate 100 Mg Tablet, 100 MG PO UD PRN for MIGRAINE, (Reported) Patient Home Medication List Home Medication List Reviewed: Yes Review of Systems Review of Systems Constitutional: see HPI EENTM: no symptoms reported Respiratory: see HPI Cardiovascular: see HPI Gastrointestinal: no symptoms reported Genitourinary: no symptoms reported : No Musculoskeletal: no symptoms reported Skin: no symptoms reported Psychiatric/Neurological: No Symptoms Reported Hematologic/Lymphatic: No Symptoms Reported Immunological/Allergic: no symptoms reported Past Kqgysnt-Uvguac-Akbnit Hx Past Med/Social Hx: Reviewed Nursing Past Med/Soc Hx Patient Social History Alcohol Use: Denies 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 Smoking Status: Former Smoker Type Used: Cigarettes Former Smoker, Quit: Oct 28, 1993 2nd Hand Smoke Exposure: No Recent Infectious Disease Expo: No Recent Hopitalizations: No Immunizations Up To Date Tetanus Booster (TDap): Unknown PED Vaccines UTD: Yes Date of Influenza Vaccine: May 01, 2020 Seasonal Allergies Seasonal Allergies: No Past Medical History Surgeries: Yes Cardiac, Section, Gallbladder, Orthopedic, Tubal Ligation Respiratory: Yes (RESTRICTIVE LUNG DISEASE; LEFT CHEST DEFORMITY) Asthma, Pneumonia, Chronic Bronchitis, Sleep Apnea, COPD (Uses O2 at 2 L/min) Currently Using CPAP: No Currently Using BIPAP: No Cardiac: Yes (Congestive heart failure) Coronary Artery Disease, Heart Attack, High Cholesterol, Hypertension Neurological: Yes Headaches /Migraines, Neuropathy, Seizure Disorder Reproductive Disorders: No Genitourinary: Yes UTI-Chronic Gastrointestinal: Yes (Reports celiac disease) Ulcer Musculoskeletal: Yes Fibromyalgia, Scoliosis, Chronic Back Pain Endocrine: Yes (MORBID OBESITY) Diabetes, Insulin dep, Hypothyroidsim HEENT: Yes Cancer: No Psychosocial: Yes Anxiety, Depression Integumentary: No Blood Disorders: No Family Medical History Noncontributory Physical Exam Vital Signs Vital Signs - First Documented 11/18/20 10:03 Temp 35.8 Pulse 90 Resp 18 B/P (MAP) 153/103 (120) Pulse Ox 100 O2 Delivery Nasal Cannula O2 Flow Rate 3.00 Capillary Refill : Less Than 3 Seconds Height, Weight, BMI Height: 5'0.00" Weight: 389lbs. 0.4oz. 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 Norm as Tested, Other (Initially somnolent with sluggish speech, improving with time) Skin: Normal Color, Warm/Dry Progress/Results/Core Measures Suspected Sepsis Recent Fever Within 48 Hours: No Infection Criteria Present: None New/Unexplained Altered Menta: No Sepsis Screen: No Definite Risk SIRS Temperature: Pulse: 90 Respiratory Rate: 18 Laboratory Tests 11/18/20 12:04: White Blood Count 7.4 Blood Pressure 153 /103 Mean: 105 Laboratory Tests 11/18/20 12:04: Creatinine 0.74, Platelet Count 305, Total Bilirubin 0.5 Results/Orders Lab Results Laboratory Tests Test 11/18/20 10:47 11/18/20 11:34 11/18/20 12:04 Range/Units Urine Color YELLOW Urine Clarity CLEAR Urine pH 5.5 5-9 Urine Specific [place] >=1.030 1.016-1.022 Urine Protein TRACE H NEGATIVE Urine Glucose (UA) NEGATIVE NEGATIVE Urine Ketones NEGATIVE NEGATIVE Urine Nitrite NEGATIVE NEGATIVE Urine Bilirubin NEGATIVE NEGATIVE Urine Urobilinogen 0.2 < = 1.0 MG/DL Urine Leukocyte Esterase NEGATIVE NEGATIVE Urine RBC (Auto) NEGATIVE NEGATIVE Urine RBC 0-2 /HPF Urine WBC 0-2 /HPF Urine Squamous Epithelial Cells 10-25 H /HPF Urine Crystals NONE /LPF Urine Bacteria MODERATE H /HPF Urine Casts PRESENT /LPF Urine Hyaline Casts 0-2 H /LPF Urine Mucus NEGATIVE /LPF Urine Culture Indicated NO B-Type Natriuretic Peptide 123.4 H <100.0 PG/ML White Blood Count 7.4 4.3-11.0 10^3/uL Red Blood Count 4.27 3.80-5.11 10^6/uL Hemoglobin 12.0 11.5-16.0 g/dL Hematocrit 41 35-52 % Mean Corpuscular Volume 95 80-99 fL Mean Corpuscular Hemoglobin 28 25-34 pg Mean Corpuscular Hemoglobin Concent 30 L 32-36 g/dL Red Cell Distribution Width 18.2 H 10.0-14.5 % Platelet Count 305 130-400 10^3/uL Mean Platelet Volume 9.5 9.0-12.2 fL Immature Granulocyte % (Auto) 1 % Neutrophils (%) (Auto) 59 42-75 % Lymphocytes (%) (Auto) 26 12-44 % Monocytes (%) (Auto) 9 0-12 % Eosinophils (%) (Auto) 3 0-10 % Basophils (%) (Auto) 1 0-10 % Neutrophils # (Auto) 4.4 1.8-7.8 10^3/uL Lymphocytes # (Auto) 2.0 1.0-4.0 10^3/uL Monocytes # (Auto) 0.7 0.0-1.0 10^3/uL Eosinophils # (Auto) 0.3 0.0-0.3 10^3/uL Basophils # (Auto) 0.1 0.0-0.1 10^3/uL Immature Granulocyte # (Auto) 0.1 0.0-0.1 10^3/uL Sodium Level 144 135-145 MMOL/L Potassium Level 4.2 3.6-5.0 MMOL/L Chloride Level 97 L 98-107 MMOL/L Carbon Dioxide Level 40 H 21-32 MMOL/L Anion Gap 7 5-14 MMOL/L Blood Urea Nitrogen 29 H 7-18 MG/DL Creatinine 0.74 0.60-1.30 MG/DL Estimat Glomerular Filtration Rate > 60 BUN/Creatinine Ratio 39 Glucose Level 94 70-105 MG/DL Calcium Level 9.1 8.5-10.1 MG/DL Corrected Calcium 9.3 8.5-10.1 MG/DL Magnesium Level 1.8 1.6-2.4 MG/DL Total Bilirubin 0.5 0.1-1.0 MG/DL Aspartate Amino Transf (AST/SGOT) 15 5-34 U/L Alanine Aminotransferase (ALT/SGPT) 16 0-55 U/L Alkaline Phosphatase 90 40-136 U/L C-Reactive Protein High Sensitivity 0.83 H 0.00-0.50 MG/DL Total Protein 6.9 6.4-8.2 GM/DL Albumin 3.8 3.2-4.5 GM/DL Thyroid Stimulating Hormone (TSH) 2.76 0.35-4.94 UIU/ML Free Thyroxine 0.95 0.70-1.48 NG/DL Valproic Acid (Depakene) Level 38.2 L 50.0-100.0 UG/ML My Orders Orders - RADU FOY MD BNP (11/18/20 10:21) Cbc With Automated Diff (11/18/20 10:21) Comprehensive Metabolic Panel (11/18/20 10:21) Hs C Reactive Protein (11/18/20 10:21) Ua Culture If Indicated (11/18/20 10:21) Magnesium (11/18/20 10:21) Albuterol/Ipra Inhalation Soln (Duoneb I (11/18/20 10:30) Svn Small Volume Nebulizer (11/18/20 10:21) Chest 1 View, Ap/Pa Only (11/18/20 10:21) Valproic Acid (11/18/20 10:24) Thyroid Stimulating Hormone (11/18/20 10:24) Free T4 (Free Thyroxine) (11/18/20 10:24) Security Systems Administrator Consult (11/18/20 11:09) Medications Given in ED Current Medications Medications Dose Ordered Sig/Alex Route Start Time Stop Time Status Last Admin Dose Admin Albuterol/ Ipratropium 3 ml ONCE ONCE INH 11/18/20 10:30 11/18/20 10:31 DC 11/18/20 10:47 3 ML Vital Signs/I&O 11/18/20 11/18/20 11/18/20 11/18/20 10:03 10:47 11:19 15:10 Temp 35.8 Pulse 90 79 108 Resp 18 18 18 B/P (MAP) 153/103 (120) 126/94 (105) 103/71 Pulse Ox 100 95 98 99 O2 Delivery Nasal Cannula Nasal Cannula Nasal Cannula Nasal Cannula O2 Flow Rate 3.00 3.00 3.00 2.00 Capillary Refill : Less Than 3 Seconds Blood Pressure Mean: 105 Progress Note : Progress Note Patient was seen and examined. Blood work revealed no major concerns. Urine was negative for infection. She was given a DuoNeb treatment for her wheezing. I had a long discussion with the patient and rn social services about living circumstances inability to function at home given the severe debility. Patient would like to continue care at home and increase her home services. Arrangements were coordi nated with the current home health [facility]. Services will be increased on Sunday. In the meantime, patient was offered admission for therapy services and supportive care. Patient declines and would like to try staying home. Gait belt was provided to patient and . We assisted her into her vehicle upon discharge. This was a very difficult task and it was clear that physical therapy was needed to help with strengthening, agility, and weight loss. In the meantime I have suggested that she take an extra 40 mg of Lasix today and tomorrow to help with some of her anasarca. I have also suggested that she reduce or eliminate baclofen as this may be causing weakness and somnolence early in the day. Diagnostic Imaging Diagonstic Imaging: Xray Plain Films/CT/US/NM/MRI: chest Comments Chest x-ray viewed by me and report reviewed. See report below: NAME: JOSIAS HADDAD [facility] REC#: [id number] PT STATUS: REG ER : 1970 PHYSICIAN: RADU FYO MD ADMIT DATE: 11/18/20/ER Signed Date of Exam:11/18/20 CHEST 1 VIEW, AP/PA ONLY INDICATION: Shortness of air, cough. COMPARISON: 11/16/2020 TECHNIQUE: Single frontal radiograph of the chest dated 11/18/2020 FINDINGS: Enlargement of the cardiac silhouette. Decreased prominence of the pulmonary vasculature. Significant bilateral pulmonary infiltrates are again identified, though these appear improved since the prior examination. Improved aeration of the lungs. No large volume pleural effusion. No pneumothorax. Osseous structures appear stable. IMPRESSION: Slightly improved aeration of the lungs with slightly improved though persisting bilateral pulmonary infiltrates. Persistent cardiomegaly with improved mild central pulmonary vascular congestion. Dictated by: Dictated on workstation # [id number] Dict: 11/18/20 1104 Trans: 11/18/20 1155 [id number] Interpreted by: MERON GEORGE MD Electronically signed by: MERON GEORGE MD 11/18/20 1155 Departure Impression Primary Impression: Multiple falls Additional Impressions: Debility Morbid obesity COPD (chronic obstructive pulmonary disease) Qualified Codes: J44.9 - Chronic obstructive pulmonary disease, unspecified Disposition: 01 HOME, SELF-CARE Condition: Stable Departure-Patient Inst. Decision time for Depature: 14:25 Referrals: NO,LOCAL PHYSICIAN (PCP/Family) Primary Care Physician Patient Instructions: Chronic Obstructive Pulmonary Disease (COPD) (DC) Add. Discharge Instructions: Continue your medications as prescribed. If you are having significant exacerbation of water retention, you may take an extra 40 mg of Lasix (furosemide) for 1 or 2 days. Do not do this for an extended period of time without the guidance of your physician. Return to care if you have worsening symptoms. Call with questions or concerns. Connect with your primary care provider soon as possible about obtaining a CPAP or trilogy machine to help with COPD and sleep apnea. Your baclofen and other sedating medications may be contributing to your weakness. Consider reducing the dose (halving) or eliminating baclofen. Work with your primary care provider to decrease other sedating medications as well. All discharge instructions reviewed with patient and/or family. Voiced understanding. Copy Copies To 1: TAYLOR CLINTON JOSHUA T MD November 18, 2020 14:30
[2020-11-18 15:10] VITALS: BP 103/71
[2020-11-19] MEDS ORDERED: ACHD5005 PO (10:54)
[2020-11-19] MEDS ORDERED: ASPI-1238 PO (10:54)
[2020-11-19] MEDS ORDERED: PREG200C28 PO (10:54)
[2020-11-19] MEDS ORDERED: FLUT1BLS IH (10:54)
[2020-11-19] MEDS ORDERED: DOXY100T2 PO (10:54)
== END 2020-11-18 15:10 | disposition home or self-care (01) ==
LOC: EDUNIT# 10:02 → ER 10:04
DX: J44.9 Chronic obstructive pulmonary disease, unspecified (principal); R26.9 Unspecified abnormalities of gait and mobility; R53.81 Other malaise; R60.1 Generalized edema; I11.0 Hypertensive heart disease with heart failure; I50.9 Heart failure, unspecified; I25.10 Atherosclerotic heart disease of native coronary artery without angina pectoris; E11.40 Type 2 diabetes mellitus with diabetic neuropathy, unspecified; E78.00 Pure hypercholesterolemia, unspecified; G43.909 Migraine, unspecified, not intractable, without status migrainosus; G40.909 Epilepsy, unspecified, not intractable, without status epilepticus; E03.9 Hypothyroidism, unspecified; G89.29 Other chronic pain; M54.9 Dorsalgia, unspecified; M79.7 Fibromyalgia; E66.01 Morbid (severe) obesity due to excess calories; Z68.45 Body mass index [BMI] 70 or greater, adult; Z99.81 Dependence on supplemental oxygen; Z87.891 Personal history of nicotine dependence; Z79.82 Long term (current) use of aspirin; Z79.4 Long term (current) use of insulin; Z79.890 Hormone replacement therapy; Z79.891 Long term (current) use of opiate analgesic; Z79.899 Other long term (current) drug therapy
CPT/HCPCS: 36415; 71045; 80053; 80164; 81000; 83735; 83880; 84439; 84443; 85025; 86141; 94640

== ENCOUNTER 2020-11-19 00:37 | Inpatient (IN) | payer MEDICAID ==
[~2020-11-19] VITALS: Ht 152 cm; Wt 190.1 kg
--- NOTE | 2020-11-19 00:46 | ED Respiratory ---
General Stated Complaint: SOB Source: patient Exam Limitations: no limitations History of Present Illness Date Seen by Provider: November 19, 2020 Time Seen by Provider: 00:35 Initial Comments Patient presents ER by EMS from home with chief complaint that her said she was very short of breath decreased responsiveness and have blueness around her lips. Put her pulse ox on and she had an oxygen saturation in the 70s. She typically wears 3 L by nasal cannula. EMS said they put her on a nonrebreather and her oxygen sats went up to 100%. She is having some gurgling. No fever. She says she is had increased swelling and has been taking her Lasix as scheduled however she does not feel like she is been able to make much urine. Echocardiogram 2018 showing an EF of 60-65%. History of severe COPD, morbid obesity, oxygen dependence. Allergies and Home Medications Allergies Coded Allergies: duloxetine (Verified Allergy, Unknown, 03/17/20) tramadol (Verified Allergy, Unknown, 03/17/20) butorphanol (Unverified Adverse Reaction, Severe, 08/04/18) HALLUCINATIONS Penicillins (Unverified Adverse Reaction, Unknown, NAUSEA, 08/04/18) Home Medications Albuterol Sulfate 2.5 Mg/3 Ml Vial.neb, 2.5 MG INH Q6H PRN for SHORTNESS OF BREATH, (Reported) Albuterol Sulfate 6.7 Gm Hfa.aer.ad, 2 PUFF INH Q6H PRN for SHORTNESS OF BREATH, (Reported) Aspirin 81 Mg Tablet.dr, 81 MG PO DAILY Prescribed by: NADEEN BALL on 11/08/20 1133 Atorvastatin Calcium 40 Mg Tablet, 40 MG PO HS, (Reported) Azithromycin 250 Mg Tablet, 500 MG PO HS Prescribed by: NADEEN BALL on 11/08/20 1133 Baclofen 10 Mg Tablet, 10 MG PO HS, (Reported) Cefdinir 300 Mg Capsule, 300 MG PO BID Prescribed by: NADEEN BALL on 11/08/20 1133 Diclofenac Sodium 100 Gm Gel..gram., 1 APPLIC TP UD PRN for PAIN-BREAKTHROUGH, (Reported) Divalproex Sodium 500 Mg Tab.er.24h, 500 MG PO BID, (Reported) LAST FILLED 08-04-2020 #60/30 DAY SUPPLY Doxycycline Hyclate 100 Mg Tablet, 100 MG PO BID Prescribed by: GÉNESIS TO on 11/16/20 1440 Furosemide 40 Mg Tablet, 40 MG PO BID, (Reported) Hydrochlorothiazide 25 Mg Tablet, 25 MG PO DAILY, (Reported) LAST FILLED 08-04-2020 #30/30 DAY SUPPLY Hydrocodone/Acetaminophen 1 Each Tablet, 1 TAB PO Q6H PRN for PAIN-MODERATE (5- 7) Prescribed by: GÉNESIS TO on 11/16/20 1544 Insulin Aspart 100 Unit/1 Ml Susp, UNIT SQ UD, (Reported) USES PER PUMP Levothyroxine Sodium 200 Mcg Tablet, 200 MCG PO DAILY, (Reported) Losartan Potassium 100 Mg Tablet, 100 MG PO DAILY, (Reported) LAST FILLED 08-04-2020 #30/30 DAY SUPPLY Metoprolol Tartrate 100 Mg Tablet, 100 MG PO BID, (Reported) Naproxen 500 Mg Tablet, 500 MG PO BID, (Reported) Pantoprazole Sodium 40 Mg Tablet.dr, 40 MG PO DAILY, (Reported) Pramipexole Di-HCl 1 Mg Tablet, 1 MG PO HS, (Reported) Pregabalin 200 Mg Capsule, 200 MG PO BID, (Reported) LAST FILLED 08-18-2020 #60/30 DAY SUPPLY Sumatriptan Succinate 100 Mg Tablet, 100 MG PO UD PRN for MIGRAINE, (Reported) Patient Home Medication List Home Medication List Reviewed: Yes Review of Systems Review of Systems Constitutional: No chills, No fever EENTM: No hearing loss, No blurred vision Respiratory: No cough, No phlegm; short of breath Cardiovascular: No chest pain; edema Gastrointestinal: No abdominal pain, No constipation, No diarrhea, No nausea Musculoskeletal: No back pain, No joint pain Skin: No change in hair/nails, No dryness Psychiatric/Neurological: Denies Anxiety, Denies Depressed Past Hqbywbe-Bxlsxs-Spfvhi Hx Patient Social History Alcohol Use: Denies 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 Smoking Status: Former Smoker Type Used: Cigarettes Former Smoker, Quit: Oct 28, 1993 2nd Hand Smoke Exposure: No Recent Hopitalizations: No Immunizations Up To Date Tetanus Booster (TDap): Unknown PED Vaccines UTD: Yes Date of Influenza Vaccine: May 01, 2020 Seasonal Allergies Seasonal Allergies: No Past Medical History Surgeries: Yes Cardiac, Section, Gallbladder, Orthopedic, Tubal Ligation Respiratory: Yes (RESTRICTIVE LUNG DISEASE; LEFT CHEST DEFORMITY) Asthma, Pneumonia, Chronic Bronchitis, Sleep Apnea, COPD Currently Using CPAP: No Currently Using BIPAP: No Cardiac: Yes (Congestive heart failure) Coronary Artery Disease, Heart Attack, High Cholesterol, Hypertension Neurological: Yes Headaches /Migraines, Neuropathy, Seizure Disorder Reproductive Disorders: No Genitourinary: Yes UTI-Chronic Gastrointestinal: Yes (Reports celiac disease) Ulcer Musculoskeletal: Yes Fibromyalgia, Scoliosis, Chronic Back Pain Endocrine: Yes (MORBID OBESITY) Diabetes, Insulin dep, Hypothyroidsim HEENT: Yes Cancer: No Psychosocial: Yes Anxiety, Depression Integumentary: No Blood Disorders: No Family Medical History Noncontributory Physical Exam Vital Signs - First Documented 11/19/20 00:37 Temp 36.9 Pulse 85 Resp 22 B/P (MAP) 177/98 (124) Pulse Ox 100 O2 Delivery Non Rebreather O2 Flow Rate 15.00 Capillary Refill : Height: 5'0.00" Weight: 389lbs. 0.4oz. 176.478804zs; 75.00 BMI Method:Stated General Appearance: moderate distress, obese Eyes: Bilateral Eye Normal Inspection, Bilateral Eye PERRL, Bilateral Eye EOMI HEENT: PERRL/EOMI, pharynx normal Neck: full range of motion, normal inspection Respiratory: respiratory distress (mod ), crackles; No wheezing Cardiovascular: normal peripheral pulses, regular rate, rhythm Gastrointestinal: normal bowel sounds, non tender, soft Extremities: non-tender, normal inspection, normal capillary refill Neurologic/Psychiatric: alert, oriented x 3, other (Anxious affect) Skin: normal color, warm/dry Progress/Results/Core Measures Suspected Sepsis SIRS Temperature: Pulse: Respiratory Rate: Laboratory Tests 11/19/20 01:15: White Blood Count 8.6 Blood Pressure / Mean: Laboratory Tests 11/19/20 01:15: Creatinine 0.79, Platelet Count 313, Total Bilirubin 0.4 Results/Orders Lab Results Laboratory Tests Test 11/19/20 01:15 Range/Units White Blood Count 8.6 4.3-11.0 10^3/uL Red Blood Count 3.94 3.80-5.11 10^6/uL Hemoglobin 11.3 L 11.5-16.0 g/dL Hematocrit 37 35-52 % Mean Corpuscular Volume 94 80-99 fL Mean Corpuscular Hemoglobin 29 25-34 pg Mean Corpuscular Hemoglobin Concent 31 L 32-36 g/dL Red Cell Distribution Width 17.7 H 10.0-14.5 % Platelet Count 313 130-400 10^3/uL Mean Platelet Volume 9.4 9.0-12.2 fL Immature Granulocyte % (Auto) 1 % Neutrophils (%) (Auto) 62 42-75 % Lymphocytes (%) (Auto) 23 12-44 % Monocytes (%) (Auto) 10 0-12 % Eosinophils (%) (Auto) 4 0-10 % Basophils (%) (Auto) 1 0-10 % Neutrophils # (Auto) 5.4 1.8-7.8 10^3/uL Lymphocytes # (Auto) 2.0 1.0-4.0 10^3/uL Monocytes # (Auto) 0.8 0.0-1.0 10^3/uL Eosinophils # (Auto) 0.3 0.0-0.3 10^3/uL Basophils # (Auto) 0.1 0.0-0.1 10^3/uL Immature Granulocyte # (Auto) 0.1 0.0-0.1 10^3/uL D-Dimer 0.44 0.00-0.49 UG/ML Sodium Level 133 L 135-145 MMOL/L Potassium Level 3.4 L 3.6-5.0 MMOL/L Chloride Level 87 L 98-107 MMOL/L Carbon Dioxide Level 42 H 21-32 MMOL/L Anion Gap 4 L 5-14 MMOL/L Blood Urea Nitrogen 22 H 7-18 MG/DL Creatinine 0.79 0.60-1.30 MG/DL Estimat Glomerular Filtration Rate > 60 BUN/Creatinine Ratio 28 Glucose Level 209 H 70-105 MG/DL Calcium Level 9.0 8.5-10.1 MG/DL Corrected Calcium 9.2 8.5-10.1 MG/DL Magnesium Level 1.7 1.6-2.4 MG/DL Total Bilirubin 0.4 0.1-1.0 MG/DL Aspartate Amino Transf (AST/SGOT) 15 5-34 U/L Alanine Aminotransferase (ALT/SGPT) 16 0-55 U/L Alkaline Phosphatase 95 40-136 U/L C-Reactive Protein High Sensitivity 0.80 H 0.00-0.50 MG/DL B-Type Natriuretic Peptide 136.3 H <100.0 PG/ML Total Protein 6.6 6.4-8.2 GM/DL Albumin 3.7 3.2-4.5 GM/DL My Orders Orders - LEATHA ENGLISH Cbc With Automated Diff (11/19/20 00:48) Comprehensive Metabolic Panel (11/19/20 00:48) Hs C Reactive Protein (11/19/20 00:48) Fibrin Degradation Products (11/19/20 00:48) BNP (11/19/20 00:48) Chest 1 View, Ap/Pa Only (11/19/20 00:48) O2 (11/19/20 01:30) Potassium Cl 10meq/50ml Ivpb (Kcl 10 Meq (11/19/20 02:00) Magnesium (11/19/20 01:46) Arterial Blood Gas (11/19/20 02:03) Albuterol/Ipra Inhalation Soln (Duoneb I (11/19/20 02:15) Methylprednisolone Sod Succ (Solu-Medrol (11/19/20 02:03) Svn Small Volume Nebulizer (11/19/20 02:03) Albuterol Pre-Mix Nebs (Rt) (Proventil (11/19/20 02:35) Albuterol/Ipra Inhalation Soln (Duoneb I (11/19/20 02:45) Vital Signs/I&O 11/19/20 11/19/20 11/19/20 11/19/20 00:37 00:37 02:55 03:00 Temp 36.9 Pulse 85 Resp 22 B/P (MAP) 177/98 (124) Pulse Ox 100 98 O2 Delivery Non Rebreather Non Rebreather Nasal Cannula O2 Flow Rate 15.00 3.00 3.00 Capillary Refill : Progress Note #1: Time: 01:57 Progress Note Chest x-ray shows congestion. Suspect she is in heart failure. Plan to give her some Lasix after get some potassium on board. Check a magnesium level. She is needing extra supplemental oxygen so we will put her upstairs for diuresis. BNP is 136 however she normally lives around 20 so I suspect a small component of heart failure versus COPD explains her dyspnea. We reduced her down to her nasal cannula 5-6 lpm and she is maintaining oxygen sats in the mid upper 90s. Plan to give her a DuoNeb for likely COPD exacerbation. Progress Note #2: Time: 02:36 Progress Note Patient still quite wheezy after a DuoNeb so we will give her an hour-long. 125 mg Solu-Medrol. Progress Note #3: Time: 03:27 Progress Note Despite multiple attempts the respiratory staff was unable to obtain an ABG. Diagnostic Imaging Diagonstic Imaging: Xray Plain Films/CT/US/NM/MRI: chest Comments Bilateral pulmonary vascular congestion Reviewed: Reviewed by Me Departure Communication (Admissions) Time/Spoke to Admitting Phy: 03:28 Discussed the case with Dr. Strange and she would like the patient placed in ICU. Impression Primary Impression: COPD exacerbation Additional Impression: Acute and chronic respiratory failure with hypoxia Disposition: ADMITTED INPATIENT Condition: Stable Admissions Decision to Admit Reason: Admit from ER (General) Decision to Admit/Date: November 19, 2020 Time/Decision to Admit Time: 01:45 Departure-Patient Inst. Referrals: NO,LOCAL PHYSICIAN (PCP/Family) Primary Care Physician LEATHA ENGLISH November 19, 2020 00:45
[2020-11-19 01:24] LABS: BASOPHILS # (AUTO) 0.1 10^3/uL (0.0-0.1); BASOPHILS % (AUTO) 1 % (0-10); EOSINOPHILS # (AUTO) 0.3 10^3/uL (0.0-0.3); EOSINOPHILS % (AUTO) 4 % (0-10); HEMATOCRIT 37 % (35-52); HEMOGLOBIN 11.3 g/dL (11.5-16.0); LYMPHOCYTES % (AUTO) 23 % (12-44); MEAN CORPUSCULAR HEMOGLOBIN 29 pg (25-34); MEAN CORPUSCULAR HGB CONC 31 g/dL (32-36); MEAN CORPUSCULAR VOLUME 94 fL (80-99); MEAN PLATELET VOLUME 9.4 fL (9.0-12.2); MONOCYTES # (AUTO) 0.8 10^3/uL (0.0-1.0); MONOCYTES % (AUTO) 10 % (0-12); NEUTROPHILS # (AUTO) 5.4 10^3/uL (1.8-7.8); NEUTROPHILS % (AUTO) 62 % (42-75); PLATELET COUNT 313 10^3/uL (130-400); WHITE BLOOD COUNT 8.6 10^3/uL (4.3-11.0)
[2020-11-19 01:42] LABS: CHLORIDE 87 MMOL/L (98-107); POTASSIUM 3.4 MMOL/L (3.6-5.0); SODIUM 133 MMOL/L (135-145)
[2020-11-19] MEDS ORDERED: POTASSIUM CL 10MEQ/50ML IVPB 50 ML IV ONE (02:00)
[2020-11-19 02:03] LABS: ALBUMIN 3.7 GM/DL (3.2-4.5)
[2020-11-19] MEDS ORDERED: methylPREDNISolone 125 MG (Solu-MEDROL) VIAL IV STA (02:03)
[2020-11-19 02:06] LABS: GLUCOSE 209 MG/DL (70-105); TOTAL PROTEIN 6.6 GM/DL (6.4-8.2)
[2020-11-19 02:07] LABS: CARBON DIOXIDE 42 MMOL/L (21-32)
[2020-11-19 02:08] LABS: BILIRUBIN,TOTAL 0.4 MG/DL (0.1-1.0)
[2020-11-19 02:09] LABS: ALKALINE PHOSPHATASE 95 U/L (40-136)
[2020-11-19 02:10] LABS: CREATININE SERUM 0.79 MG/DL (0.60-1.30); GFR ESTIMATED > 60
[2020-11-19 02:11] LABS: BUN/CREATININE RATIO 28
[2020-11-19 02:12] LABS: ALANINE AMINOTRANSFERASE 16 U/L (0-55)
[2020-11-19] MEDS ORDERED: RT-ALBUTEROL/IPRATROPIUM 3 ML (DUONEB) VIAL INH ONE ×2 (02:15→02:45)
[2020-11-19] MEDS ORDERED: RT-ALBUTEROL SULF 2.5 MG/3 ML PRE-MIX VIAL INH STA (02:35)
[2020-11-19 05:18] VITALS: BP 177/98
--- NOTE | 2020-11-19 05:29 | Diagnostic Imaging Report ---
INDICATION: Shortness of breath Portable chest 12:57 AM There is cardiomegaly. Pulmonary vascularity is upper limits of normal. Lungs are clear. There are no effusions or pneumothoraces. IMPRESSION: Cardiomegaly with mild pulmonary venous congestion Dictated by: Dictated on workstation # [id number]
[2020-11-19] MEDS: inSUlin ASPART (NovoLOG) 1 UNIT/0.01 ML (CHARGE PER UNIT) SC SCH ×2 (05:30→11:22)
[2020-11-19] MEDS ORDERED: RT-ALBUTEROL/IPRATROPIUM 3 ML (DUONEB) VIAL INH PRN (05:30)
[2020-11-19 05:32] LABS: BILIRUBIN,URINE NEGATIVE (NEGATIVE); CLARITY,URINE CLEAR; COLOR,URINE YELLOW; GLUCOSE, URINE (UA) 1+ (NEGATIVE); KETONES,URINE NEGATIVE (NEGATIVE); LEUKOCYTE ESTERASE ,URINE NEGATIVE (NEGATIVE); NITRITE,URINE NEGATIVE (NEGATIVE); PROTEIN,URINE 1+ (NEGATIVE)
--- NOTE | 2020-11-19 05:48 | History & Physical-Hospitalist ---
History of Present Illness HPI/Chief Complaint CC: SOB HPI: This is a 50yoWF known to me from prior hospitalization with a history of super obesity with 500+ lbs with acute on chronic respiratory failure who presents with COPD exacerbation. At this current time pt is being transferred down to the 4th floor. She is very tearful and is having difficulty coping with everything. She was found to have no significant compromise. She is maintaining her O2 sat so she will be maintained on close monitoring but she really needs to have a 350lb weight loss in order to have any type of quality of life. Source: patient, RN/MD, old records Exam Limitations: no limitations Date Seen 11/19/20 Time Seen by a Provider: 11:00 Attending Physician Carmen Strange DO PCP No,Local Physician Referring Physician Date of Admission November 19, 2020 at 03:41 Home Medications & Allergies Home Medications Reviewed patient Home Medication Reconciliation performed by pharmacy medication reconciliations orthotic technician and/or nursing. Patients Allergies have been reviewed. Allergies Allergies Coded Allergies duloxetine (Verified Allergy, Unknown, 03/17/20) tramadol (Verified Allergy, Unknown, 03/17/20) butorphanol (Unverified Adverse Reaction, Severe, 08/04/18) HALLUCINATIONS Penicillins (Unverified Adverse Reaction, Unknown, NAUSEA, 08/04/18) Past Medical/Social/Family Hx Patient Social History Marrital Status: Employed/Student: unemployed Tobacco Use?: No Smoking Status: Former Smoker Immunizations Up To Date Influenza Vaccine Up-to-Date: No; Not Current Tetanus Booster (TDap): Unknown Current Status Primary Language: Kazakh Past Medical History Hypertension Hypothyroidism Super super obesity Presumed obstructive sleep apnea Presumed obesity hypoventilation syndrome Family Medical History Family Hx: Noncontributory Review of Systems Constitutional: see HPI Respiratory: dyspnea on exertion Physical Exam Physical Exam Vital Signs Vital Signs - First Documented 11/19/20 00:37 Temp 36.9 Pulse 85 Resp 22 B/P (MAP) 177/98 (124) Pulse Ox 100 O2 Delivery Non Rebreather O2 Flow Rate 15.00 Capillary Refill : Less Than 3 Seconds Height, Weight, BMI Height: 5'0.00" Weight: 389lbs. 0.4oz. [id number]; 82.28 BMI Method:Stated General Appearance: No Apparent Distress, Chronically ill, Obese Respiratory: Lungs Clear, Normal Breath Sounds, Decreased Breath Sounds Cardiovascular: Regular Rate, Rhythm Neurologic/Psychiatric: Alert, Oriented x3 Results Results/Procedures Labs Laboratory Tests 11/19/20 01:15 Patient resulted labs reviewed. Assessment/Plan Admission Diagnosis Assessment: Acute on chronic respiratory failure Morbid obesity Hypothyroidism PlanL Move to floor Improved status Admission Status: Inpatient Order (span 2 midnights) Reason for Inpatient Admission: resp failure CARMEN STRANGE DO November 19, 2020 05:48
[2020-11-19] MEDS ORDERED: KCL 20 MEQ TAB (K-DUR) PO ONE ×3 (06:00→09:00)
[2020-11-19] MEDS ORDERED: RT-ALBUTEROL/IPRATROPIUM 3 ML (DUONEB) VIAL INH SCH (06:00)
--- NOTE | 2020-11-19 06:01 | Pulmonary Consultation ---
History of Present Illness History of Present Illness Date Seen by Provider: November 19, 2020 Time Seen by Provider: 05:55 Date of Admission Allergies and Home Medications Allergies Coded Allergies: duloxetine (Verified Allergy, Unknown, 03/17/20) tramadol (Verified Allergy, Unknown, 03/17/20) butorphanol (Unverified Adverse Reaction, Severe, 08/04/18) HALLUCINATIONS Penicillins (Unverified Adverse Reaction, Unknown, NAUSEA, 08/04/18) Home Medications Albuterol Sulfate 2.5 Mg/3 Ml Vial.neb, 2.5 MG INH Q6H PRN for SHORTNESS OF BREATH, (Reported) Albuterol Sulfate 6.7 Gm Hfa.aer.ad, 2 PUFF INH Q6H PRN for SHORTNESS OF BREATH, (Reported) Aspirin 81 Mg Tablet.dr, 81 MG PO DAILY Prescribed by: NADEEN BALL on 11/08/20 1133 Atorvastatin Calcium 40 Mg Tablet, 40 MG PO HS, (Reported) Azithromycin 250 Mg Tablet, 500 MG PO HS Prescribed by: NADEEN BALL on 11/08/20 1133 Baclofen 10 Mg Tablet, 10 MG PO HS, (Reported) Cefdinir 300 Mg Capsule, 300 MG PO BID Prescribed by: NADEEN BALL on 11/08/20 1133 Diclofenac Sodium 100 Gm Gel..gram., 1 APPLIC TP UD PRN for PAIN-BREAKTHROUGH, (Reported) Divalproex Sodium 500 Mg Tab.er.24h, 500 MG PO BID, (Reported) LAST FILLED 08-04-2020 #60/30 DAY SUPPLY Doxycycline Hyclate 100 Mg Tablet, 100 MG PO BID Prescribed by: GÉNESIS TO on 11/16/20 1440 Furosemide 40 Mg Tablet, 40 MG PO BID, (Reported) Hydrochlorothiazide 25 Mg Tablet, 25 MG PO DAILY, (Reported) LAST FILLED 08-04-2020 #30/30 DAY SUPPLY Hydrocodone/Acetaminophen 1 Each Tablet, 1 TAB PO Q6H PRN for PAIN-MODERATE (5- 7) Prescribed by: GÉNESIS TO on 11/16/20 1544 Insulin Aspart 100 Unit/1 Ml Susp, UNIT SQ UD, (Reported) USES PER PUMP Levothyroxine Sodium 200 Mcg Tablet, 200 MCG PO DAILY, (Reported) Losartan Potassium 100 Mg Tablet, 100 MG PO DAILY, (Reported) LAST FILLED 08-04-2020 #30/30 DAY SUPPLY Metoprolol Tartrate 100 Mg Tablet, 100 MG PO BID, (Reported) Naproxen 500 Mg Tablet, 500 MG PO BID, (Reported) Pantoprazole Sodium 40 Mg Tablet.dr, 40 MG PO DAILY, (Reported) Pramipexole Di-HCl 1 Mg Tablet, 1 MG PO HS, (Reported) Pregabalin 200 Mg Capsule, 200 MG PO BID, (Reported) LAST FILLED 08-18-2020 #60/30 DAY SUPPLY Sumatriptan Succinate 100 Mg Tablet, 100 MG PO UD PRN for MIGRAINE, (Reported) Past Hjmattn-Qavwsg-Tejhpo Hx Patient Social History Alcohol Use: Denies Use Drug of Choice: HX METH Smoking Status: Former Smoker Type Used: Cigarettes Former Smoker, Quit: Oct 28, 1993 2nd Hand Smoke Exposure: No Recent Infectious Disease Expo: No Recent Hopitalizations: No Immunizations Up To Date Tetanus Booster (TDap): Unknown PED Vaccines UTD: Yes Date of Influenza Vaccine: May 01, 2020 Seasonal Allergies Seasonal Allergies: No Past Medical History Surgeries: Yes Cardiac, Section, Gallbladder, Orthopedic, Tubal Ligation Respiratory: Yes (RESTRICTIVE LUNG DISEASE; LEFT CHEST DEFORMITY) Asthma, Pneumonia, Chronic Bronchitis, Sleep Apnea, COPD Currently Using CPAP: No Currently Using BIPAP: No Cardiac: Yes (Congestive heart failure) Coronary Artery Disease, Heart Attack, High Cholesterol, Hypertension Neurological: Yes Headaches /Migraines, Neuropathy, Seizure Disorder Reproductive Disorders: No Genitourinary: Yes UTI-Chronic Gastrointestinal: Yes (Reports celiac disease) Ulcer Musculoskeletal: Yes Fibromyalgia, Scoliosis, Chronic Back Pain Endocrine: Yes (MORBID OBESITY) Diabetes, Insulin dep, Hypothyroidsim HEENT: Yes Cancer: No Psychosocial: Yes Anxiety, Depression Integumentary: No Blood Disorders: No Family Medical History Noncontributory Sepsis Event Evaluation Height, Weight, BMI Height: 5'0.00" Weight: 389lbs. 0.4oz. [id number]; 82.28 BMI Method:Stated Exam Exam Vital Signs Date Time Temp Pulse Resp B/P (MAP) Pulse Ox O2 Delivery O2 Flow Rate FiO2 11/19/20 05:30 97 Nasal Cannula 3.00 11/19/20 05:18 36.9 85 98 11/19/20 05:15 87 10 153/97 (115) 96 Nasal Cannula 3.00 11/19/20 05:02 36.0 92 20 145/82 (103) 96 Nasal Cannula 3.00 3.00 11/19/20 04:50 62 158/98 (118) 97 Nasal Cannula 3.00 11/19/20 04:49 92 11/19/20 04:14 36.9 86 20 179/102 (124) 96 Nasal Cannula 3.00 11/19/20 03:00 98 Nasal Cannula 3.00 11/19/20 02:55 3.00 11/19/20 00:37 Non Rebreather 15.00 11/19/20 00:37 36.9 85 22 177/98 (124) 100 Non Rebreather I & O 11/19/20 07:00 Intake Total 0 ml Output Total 225 ml Balance -225 ml Height & Weight Height: 5'0.00" Weight: 389lbs. 0.4oz. 176.907961jk; 82.28 BMI Method:Stated Capillary Refill: Less Than 3 Seconds Gastrointestinal: normal bowel sounds, non tender, soft Results Lab Laboratory Tests 11/19/20 01:15 Assessment/Plan Assessment/Plan Acute on chronic respiratory failure -BiPAP PRN CHFAE -Lasix COPDAE -Duonebs -Solumedrol -Oxygen NC with 3 liters Morbid obesity with OHS Hypothyroid -Restart home meds once verified. IDALIA RUIZ DO November 19, 2020 06:01
[2020-11-19 06:14] LABS: AMORPHOUS SEDIMENT,UR FEW AMOR URATES /LPF; BACTERIA,URINE NEGATIVE /HPF; WBC,URINE 0-2 /HPF
[2020-11-19] MEDS ORDERED: DOXYCYCLINE 100 MG (VIBRAMYCIN) TABLET PO SCH (07:00)
[2020-11-19] MEDS ORDERED: methylPREDNISolone 40 MG/ML (Solu-MEDROL) VIAL IV SCH (09:00)
[2020-11-19] MEDS ORDERED: FUROSEMIDE 40 MG/4 ML INJ (LASIX) IVP SCH (09:00)
[2020-11-19] MEDS ORDERED: ASPI-1238 PO (10:54)
[2020-11-19] MEDS ORDERED: FLUT1BLS IH (10:54)
[2020-11-19] MEDS ORDERED: DOXY100T2 PO (10:54)
[2020-11-19] MEDS ORDERED: PREG200C28 PO (10:54)
[2020-11-19] MEDS ORDERED: ACHD5005 PO (10:54)
[2020-11-19] MEDS ORDERED: HYDROcodone/APAP 5 MG/325 MG (LORTAB) TAB PO PRN (11:00)
[2020-11-19] MEDS ORDERED: SUMAtriptan 50 MG (IMITREX) TAB PO PRN (12:15)
[2020-11-19] MEDS ORDERED: DICLOFENAC 1% GEL 100 GM (VOLTAREN) TUBE TOP PRN (12:30)
--- NOTE | 2020-11-19 18:02 | Discharge Summary ---
Discharge Summary Hospital Course Was the Problem List Reviewed?: Yes Problems/Dx: (1) Acute on chronic respiratory failure with hypoxia and hypercapnia Status: Acute Hospital Course Date of Admission: November 19, 2020 at 03:41 Admission Diagnosis : Family Physician/Provider: No,Local Physician Date of Discharge: 11/19/20 Discharge Diagnosis: acute on chronic resp failure Hospital Course: Left AMA Labs and Pending Lab Test: Laboratory Tests 11/19/20 01:15: White Blood Count 8.6, Red Blood Count 3.94, Hemoglobin 11.3L, Hematocrit 37, Mean Corpuscular Volume 94, Mean Corpuscular Hemoglobin 29, Mean Corpuscular Hemoglobin Concent 31L, Red Cell Distribution Width 17.7H, Platelet Count 313, Mean Platelet Volume 9.4, Immature Granulocyte % (Auto) 1, Neutrophils (%) (Auto) 62, Lymphocytes (%) (Auto) 23, Monocytes (%) (Auto) 10, Eosinophils (%) (Auto) 4, Basophils (%) (Auto) 1, Neutrophils # (Auto) 5.4, Lymphocytes # (Auto) 2.0, Monocytes # (Auto) 0.8, Eosinophils # (Auto) 0.3, Basophils # (Auto) 0.1, Immature Granulocyte # (Auto) 0.1, D-Dimer 0.44, Sodium Level 133L, Potassium Level 3.4L, Chloride Level 87L, Carbon Dioxide Level 42H, Anion Gap 4L, Blood Urea Nitrogen 22H, Creatinine 0.79, Estimat Glomerular Filtration Rate > 60, BUN/Creatinine Ratio 28, Glucose Level 209H, Calcium Level 9.0, Corrected Calcium 9.2, Magnesium Level 1.7, Total Bilirubin 0.4, Aspartate Amino Transf (AST/SGOT) 15, Alanine Aminotransferase (ALT/SGPT) 16, Alkaline Phosphatase 95, C-Reactive Protein High Sensitivity 0.80H, B-Type Natriuretic Peptide 136.3H, Total Protein 6.6, Albumin 3.7 11/19/20 03:52: Phosphorus Level 3.3 11/19/20 05:10: Urine Color YELLOW, Urine Clarity CLEAR, Urine pH 6.0, Urine Specific [place] >=1.030, Urine Protein 1+H, Urine Glucose (UA) 1+H, Urine Ketones NEGATIVE, Urine Nitrite NEGATIVE, Urine Bilirubin NEGATIVE, Urine Urobilinogen 0.2, Urine Leukocyte Esterase NEGATIVE, Urine RBC (Auto) NEGATIVE, Urine RBC NONE, Urine WBC 0-2, Urine Crystals PRESENTH, Urine Amorphous Sediment FEW SANTOS URATESH, Urine Bacteria NEGATIVE, Urine Casts NONE, Urine Mucus LARGEH, Urine Culture Indicated NO 11/19/20 05:12: Glucometer 194H 11/19/20 11:16: Glucometer 306H Home Meds Active Reported Breo Ellipta 200-25 Mcg INH (Fluticasone/Vilanterol) 1 Each Blst.w.dev 1 Each IH DAILY Pregabalin 200 Mg Capsule 200 Mg PO BID Aspirin EC (Aspirin) 81 Mg Tablet.dr 81 Mg PO DAILY Hydrocodone-Acetamin 5-325 mg (Hydrocodone/Acetaminophen) 1 Each Tablet 1 Tab PO Q6H PRN Doxycycline Hyclate 100 Mg Tablet 100 Mg PO BID FILLED 11-16-2020 #20 DAY SUPPLY Diclofenac Sodium 100 Gm Gel..gram. 1 Applic TP UD PRN Pantoprazole Sodium 40 Mg Tablet.dr 40 Mg PO DAILY Furosemide 40 Mg Tablet 40 Mg PO BID Losartan Potassium 100 Mg Tablet 100 Mg PO DAILY Hydrochlorothiazide 25 Mg Tablet 25 Mg PO DAILY Baclofen 10 Mg Tablet 10 Mg PO HS Pramipexole Dihydrochloride (Pramipexole Di-HCl) 1 Mg Tablet 1 Mg PO HS Naproxen 500 Mg Tablet 500 Mg PO BID Novolog (Insulin Aspart) 100 Unit/1 Ml Susp Unit SQ UD USES PER PUMP Levothyroxine Sodium 200 Mcg Tablet 200 Mcg PO DAILY Sumatriptan Succinate 100 Mg Tablet 100 Mg PO UD PRN Metoprolol Tartrate 100 Mg Tablet 100 Mg PO BID Atorvastatin Calcium 40 Mg Tablet 40 Mg PO HS Proventil Hfa (Albuterol Sulfate) 6.7 Gm Hfa.aer.ad 2 Puff INH Q6H PRN Divalproex Sodium ER (Divalproex Sodium) 500 Mg Tab.er.24h 500 Mg PO BID Albuterol Sulfate 2.5 Mg/3 Ml Vial.neb 2.5 Mg INH Q6H PRN Assessment/Pt Instructions Left AMA Discharge Planning: <30 minutes discharge planning Discharge Physical Examination Vital Signs Vital Signs Date Time Temp Pulse Resp B/P (MAP) Pulse Ox O2 Delivery O2 Flow Rate FiO2 11/19/20 12:00 97 Nasal Cannula 3.00 11/19/20 12:00 80 24 157/90 (112) 11/19/20 08:00 37.0 Allergies: Coded Allergies: duloxetine (Verified Allergy, Unknown, 03/17/20) tramadol (Verified Allergy, Unknown, 03/17/20) butorphanol (Unverified Adverse Reaction, Severe, 08/04/18) HALLUCINATIONS Penicillins (Unverified Adverse Reaction, Unknown, NAUSEA, 08/04/18) Discharge Summary Date of Admission November 19, 2020 at 03:41 Date of Discharge November 19, 2020 at 13:00 CAMILA GREENBERG DO November 19, 2020 18:02
[2020-11-19] MEDS ORDERED: meTOprolol TARTRATE 50 MG (LOPRESSOR) TAB PO SCH (21:00)
[2020-11-19] MEDS ORDERED: PREGABALIN 100 MG (LYRICA) CAPSULE PO SCH (21:00)
[2020-11-19] MEDS ORDERED: DIVALPROEX EXT RELEASE 500 MG (DEPAKOTE ER) TAB PO SCH (21:00)
[2020-11-19] MEDS ORDERED: PRAMIPEXOLE 0.5 MG TAB (MIRAPEX) PO SCH (21:00)
[2020-11-19] MEDS ORDERED: BACLOFEN 10 MG (LIORESAL) TAB PO SCH (21:00)
[2020-11-19] MEDS ORDERED: NAPROXEN 250 MG (NAPROSYN) TABLET PO SCH (21:00)
[2020-11-20] MEDS ORDERED: PANTOPRAZOLE 40 MG (PROTONIX) TAB PO SCH (09:00)
[2020-11-20] MEDS ORDERED: FUROSEMIDE 40 MG/4 ML INJ (LASIX) IVP SCH (09:00)
[2020-11-20] MEDS ORDERED: LOSARTAN 100 MG (COZAAR) TABLET PO SCH (09:00)
[2020-11-20] MEDS ORDERED: FLUTICASONE/VILANTEROL 200 MCG 14'S (BREO) IH SCH (09:00)
[2020-11-20] MEDS ORDERED: LEVOTHYROXINE 100 MCG (LEVOTHROID) TAB PO SCH (09:00)
[2020-11-20] MEDS ORDERED: ASPIRIN E.C. 81 MG (ECOTRIN) TAB PO SCH (09:00)
== END 2020-11-19 13:00 | disposition left against medical advice (07) | DRG 189 ==
LOC: EDUNIT# 00:37 → ER 00:38 → ICU 03:41
PROVIDERS: ADMIT Internal Medicine; ATTEND Internal Medicine
DX: J96.21 Acute and chronic respiratory failure with hypoxia (principal); J44.1 Chronic obstructive pulmonary disease with (acute) exacerbation; Z68.45 Body mass index [BMI] 70 or greater, adult; J96.22 Acute and chronic respiratory failure with hypercapnia; Z79.82 Long term (current) use of aspirin; Z79.4 Long term (current) use of insulin; Z79.899 Other long term (current) drug therapy; Z87.891 Personal history of nicotine dependence; Z87.01 Personal history of pneumonia (recurrent); J44.9 Chronic obstructive pulmonary disease, unspecified; I25.10 Atherosclerotic heart disease of native coronary artery without angina pectoris; I25.2 Old myocardial infarction; E78.00 Pure hypercholesterolemia, unspecified; I10 Essential (primary) hypertension; G43.909 Migraine, unspecified, not intractable, without status migrainosus; E11.40 Type 2 diabetes mellitus with diabetic neuropathy, unspecified; G40.909 Epilepsy, unspecified, not intractable, without status epilepticus; M79.7 Fibromyalgia; M41.9 Scoliosis, unspecified; G89.29 Other chronic pain; M54.9 Dorsalgia, unspecified; E66.01 Morbid (severe) obesity due to excess calories; E03.9 Hypothyroidism, unspecified; F41.9 Anxiety disorder, unspecified; F32.9 Major depressive disorder, single episode, unspecified; I50.9 Heart failure, unspecified; I11.0 Hypertensive heart disease with heart failure; Z88.0 Allergy status to penicillin; Z88.8 Allergy status to other drugs, medicaments and biological substances
CPT/HCPCS: 36415; 71045; 80053; 81000; 82947; 83735; 83880; 84100; 85025; 85379; 86141; 87081; 94640

== ENCOUNTER 2020-12-17 21:32 | Inpatient (IN) | payer MEDICAID ==
[~2020-12-17] VITALS: Ht 152 cm; Wt 167.3 kg
[~2020-12-17 21:32] MED LIST changes: +DICL100G13 TOP; -DICL100G31 TOP; +PREG200C28 PO
[2020-12-17 22:00] LABS: HEMOGLOBIN 11.8 g/dL (11.5-16.0); MEAN PLATELET VOLUME 9.3 fL (9.0-12.2); MONOCYTES % (AUTO) 11 % (0-12)
[2020-12-17 22:02] LABS: BASOPHILS % (AUTO) 1 % (0-10); EOSINOPHILS # (AUTO) 0.6 10^3/uL (0.0-0.3); EOSINOPHILS % (AUTO) 7 % (0-10); HEMATOCRIT 38 % (35-52); LYMPHOCYTES # (AUTO) 2.6 10^3/uL (1.0-4.0); LYMPHOCYTES % (AUTO) 32 % (12-44); MEAN CORPUSCULAR HEMOGLOBIN 28 pg (25-34); MEAN CORPUSCULAR HGB CONC 31 g/dL (32-36); MEAN CORPUSCULAR VOLUME 89 fL (80-99); MONOCYTES # (AUTO) 0.9 10^3/uL (0.0-1.0); NEUTROPHILS % (AUTO) 49 % (42-75); PLATELET COUNT 267 10^3/uL (130-400); WHITE BLOOD COUNT 8.2 10^3/uL (4.3-11.0)
[2020-12-17 22:20] LABS: ALANINE AMINOTRANSFERASE 27 U/L (0-55); ALBUMIN 3.6 GM/DL (3.2-4.5); ALKALINE PHOSPHATASE 101 U/L (40-136); BILIRUBIN,TOTAL 0.4 MG/DL (0.1-1.0); BUN/CREATININE RATIO 21; CALCIUM 9.5 MG/DL (8.5-10.1); CARBON DIOXIDE 35 MMOL/L (21-32); CHLORIDE 89 MMOL/L (98-107); CREATINE KINASE 174 U/L (29-168); CREATININE SERUM 0.89 MG/DL (0.60-1.30); GFR ESTIMATED > 60; GLUCOSE 392 MG/DL (70-105); MAGNESIUM 1.4 MG/DL (1.6-2.4); POTASSIUM 3.9 MMOL/L (3.6-5.0); SMEAR SCAN COMMENT YES; SODIUM 136 MMOL/L (135-145); TOTAL PROTEIN 7.2 GM/DL (6.4-8.2)
[2020-12-17 22:39] LABS: CREATINE KINASE MB 0.6 NG/ML (<6.6); TSH (THYROID ANALYZER) 5.19 UIU/ML (0.35-4.94)
[2020-12-17 22:43] LABS: VALPROIC ACID < 2.0 UG/ML (50.0-100.0)
[2020-12-17 23:00] LABS: PROTHROMBIN TIME PATIENT 13.7 SEC (12.2-14.7)
[2020-12-17 23:01] LABS: FIBRIN DEGRADATION PRODUCTS 1.96 UG/ML (0.00-0.49)
[2020-12-17 23:17] LABS: FREE T4 (FREE THYROXINE) 1.18 NG/DL (0.70-1.48)
[2020-12-17 23:27] LABS: BILIRUBIN,URINE NEGATIVE (NEGATIVE); CLARITY,URINE SL CLOUDY; COLOR,URINE YELLOW; GLUCOSE, URINE (UA) 3+ (NEGATIVE); KETONES,URINE NEGATIVE (NEGATIVE); LEUKOCYTE ESTERASE ,URINE TRACE (NEGATIVE); NITRITE,URINE NEGATIVE (NEGATIVE); PROTEIN,URINE NEGATIVE (NEGATIVE)
[2020-12-17] MEDS ORDERED: ENOXAPARIN 100 MG/1 ML (LOVENOX) SYR SC ONE ×2 (23:30)
[2020-12-17 23:55] LABS: BACTERIA,URINE LARGE /HPF
[2020-12-18] VITALS (7 sets, daily range): BP systolic 119–153; BP diastolic 67–97
[2020-12-18] MEDS ORDERED: ONDANSETRON 4 MG/2 ML (SDV) Z0FRAN IVP PRN (01:15)
[2020-12-18] MEDS ORDERED: ACETAMINOPHEN 500 MG TAB (TYLENOL) PO PRN (01:15)
[2020-12-18] MEDS: NITROFURANTOIN 100 MG (MACROBID) CAPSULE PO SCH ×3 (01:58→20:10)
[2020-12-18] MEDS: fentaNYL INJ 100 MCG/2 ML AMP IVP PRN ×3 (02:24→20:11)
[2020-12-18] MEDS ORDERED: POTA-51 PO (02:39)
[2020-12-18] MEDS ORDERED: ONDA4TAB11 SL (02:39)
[2020-12-18] MEDS ORDERED: INSU100V42 SQ (02:39)
--- NOTE | 2020-12-18 02:41 | ED General ---
General Chief Complaint: General Problems/Pain Stated Complaint: BILAT LEG PAIN;INABILITY TO WALK;ELEV -DIMER; Nursing Triage Note: BROUGHT IN BY [facility] FOR C/O BILATERAL LEG PAIN. PT REPORTS SHE CAN'T WALK/ DO ADL'S SINCE DC'D FROM [facility] 12/13/20 DENIES INJURY. Nursing Sepsis Screen: No Definite Risk Source of Information: Patient (LIMITED HISTORIAN), Old Records History of Present Illness Date Seen by Provider: Dec 17, 2020 Time Seen by Provider: 21:29 Initial Comments PT ARRIVES VIA [facility] FROM HOME C/O BILATERAL LEG PAIN FOR THE LAST 3 DAYS STATES PAIN IS TO HER ENTIRE LEGS BILATERALLY, WITH NO LOCALIZED AREAS OF PAIN PT STATES SHE HAS NOT BEEN ABLE TO WALK FOR THE LAST COUPLE OF WEEKS PT WAS ADMITTED TO [facility] 12/03/20 AND DISMISSED 12/13/20 CLAIMS SHE WAS ABLE TO WALK WITH A WALKER PRIOR TO GOING INTO THE HOSPITAL, BUT WHILE SHE WAS THERE AND SINCE SHE GOT OUT, SHE HAS NOT BEEN ABLE TO WALK, DUE TO PAIN IN LEGS. DENIES CHEST PAIN DENIES SHORTNESS OF BREATH DENIES FEVER/SWEATS/CHILLDS DENIES COUGH DENIES CHANGE IN SIZE OR COLORATION OF LEGS STATES SYMPTOMS ARE NO DIFFERENT TONIGHT IN ANY WAY HAS NOT SOUGHT CARE UNTIL TONIGHT ( Sunday) PER DISCHARGE SUMMARY FROM [facility], PT WAS ADMITTED FOR SHORTNESS OF BREATH, AND WAS FOUND TO HAVE CHF, WITH ACUTE RESPIRATORY FAILURE AND CO2 NARCOSIS DURING STAY PT WAS TREATED WITH IV DIURESIS WITH GOOD RESPONSE. SHE DID HAVE SOME ACUTE KIDNEY INJURY DUE TO DIURESIS, BUT RECOVERED AND RENAL FUNCTION NORMALIZED PRIOR TO DISMISSAL PT WAS ON BIPAP FOR CO2 NARCOSIS PT STATES THAT NONE OF HER MEDICATIONS HAVE BEEN CHANGED, BUT ACCORDING TO DISCHARGE SUMMARY FROM [facility], PT WAS ADVISED TO STOP HYDROCHLOROTHIAZIDE AND NAPROXEN THE ONLY ADDITION TO HER MEDICATIONS WAS 81 MG ASPIRIN WAS INSTRUCTED TO FOLLOW UP WITH HER PCP IN 1-2 DAYS FOR RECHECK LAB FOR RENAL FUNCTION WAS ALSO INSTRUCTED THAT SHE NEEDS OUTPATIENT SLEEP STUDIES TO DETERMINE APPROPRIATE USE AND SETTINGS OF CPAP OR BIPAP WAS ADVISED TO FOLLOW UP WITH PULMONOLOGY, CARDIOLOGY, [facility] AND HER PCP PT HAS NOT DONE ANY OF THE ABOVE FOLLOW UP MEASURES PT WITH LONG HISTORY OF NON-COMPLIANCE PT HAS HAD 7 VISITS HERE SINCE 10/14/20, AT HER LAST ADMIT HERE WAS FOR ACUTE EXACERBATION OF CHRONIC RESPIRATORY FAILURE AND COPD ON 11/20/23, SHE SIGNED OUT AGAINST MEDICAL ADVICE THE SAME DAY MANY VISITS FOR RESPIRATORY COMPLAINTS PCP: [facility] Allergies and Home Medications Allergies Coded Allergies: duloxetine (Verified Allergy, Unknown, 03/17/20) tramadol (Verified Allergy, Unknown, 03/17/20) butorphanol (Unverified Adverse Reaction, Severe, 08/04/18) HALLUCINATIONS Penicillins (Unverified Adverse Reaction, Unknown, NAUSEA, 08/04/18) Home Medications Albuterol Sulfate 2.5 Mg/3 Ml Vial.neb, 2.5 MG INH TID, (Reported) Last Action: Reviewed Albuterol Sulfate 6.7 Gm Hfa.aer.ad, 2 PUFF INH Q6H PRN for SHORTNESS OF BREATH, (Reported) Aspirin 81 Mg Tablet.dr, 81 MG PO DAILY, (Reported) Last Action: Reviewed Atorvastatin Calcium 40 Mg Tablet, 40 MG PO HS, (Reported) Last Action: Reviewed Baclofen 10 Mg Tablet, 10 MG PO HS, (Reported) Last Action: Reviewed Diflorasone Diacetate 15 Gm Oint...g., 1 APPLIC TP BID, (Reported) Last Action: Reviewed Divalproex Sodium 500 Mg Tab.er.24h, 500 MG PO BID, (Reported) Last Action: Reviewed Furosemide 40 Mg Tablet, 40 MG PO BID, (Reported) Hydrochlorothiazide 25 Mg Tablet, 25 MG PO DAILY, (Reported) Last Action: Reviewed Insulin Aspart 100 Unit/1 Ml Vial, 100 UNIT SQ TID, (Reported) with meals Last Action: Reviewed Levothyroxine Sodium 200 Mcg Tablet, 200 MCG PO DAILY, (Reported) Last Action: Reviewed Losartan Potassium 100 Mg Tablet, 100 MG PO DAILY, (Reported) Last Action: Reviewed Metoprolol Tartrate 100 Mg Tablet, 100 MG PO BID, (Reported) Last Action: Reviewed Naproxen 500 Mg Tablet, 500 MG PO BID, (Reported) Last Action: Reviewed Ondansetron 4 Mg Tab.rapdis, 4 MG SL Q8H PRN for NAUSEA-1ST LINE, (Reported) Last Action: Reviewed Pantoprazole Sodium 40 Mg Tablet.dr, 40 MG PO DAILY, (Reported) Last Action: Reviewed Potassium Chloride 20 Meq Tablet.er, 20 MCG PO DAILY, (Reported) Last Action: Reviewed Pramipexole Di-HCl 1 Mg Tablet, 1 MG PO HS, (Reported) Last Action: Reviewed Pregabalin 200 Mg Capsule, 200 MG PO BID, (Reported) Last Action: Reviewed Solifenacin Succinate 5 Mg Tablet, 5 MG PO DAILY, (Reported) Last Action: Reviewed Sumatriptan Succinate 100 Mg Tablet, 100 MG PO UD PRN for MIGRAINE, (Reported) Last Action: Reviewed Patient Home Medication List Home Medication List Reviewed: Yes Review of Systems Review of Systems Constitutional: no symptoms reported; No fever Respiratory: No cough, No short of breath Cardiovascular: No chest pain Gastrointestinal: No abdominal pain, No nausea, No vomiting Musculoskeletal: see HPI (GENERALIZED BILATERAL LEG PAIN ) Past Gsnqbbm-Mkubic-Euwdoe Hx Patient Social History Alcohol Use: Denies Use Drug of Choice: HX OF IV METH USE Smoking Status: Former Smoker Type Used: Cigarettes Former Smoker, Quit: Oct 28, 1993 2nd Hand Smoke Exposure: No Recent Infectious Disease Expo: No Recent Hopitalizations: Yes ([facility] 12/13/20) Have you traveled recently?: No Substance type: Methamphetamine Alcohol Use?: No Immunizations Up To Date Tetanus Booster (TDap): Unknown PED Vaccines UTD: Yes Date of Influenza Vaccine: May 01, 2020 Seasonal Allergies Seasonal Allergies: No Past Medical History Surgeries: Yes Cardiac, Section, Gallbladder, Orthopedic, Tubal Ligation Respiratory: Yes (RESTRICTIVE LUNG DZ;LEFT CHEST DEFORMITY;CHF;CHRONIC RESP FAILURE-3L/NC) Asthma, Pneumonia, Chronic Bronchitis, Sleep Apnea, COPD Currently Using CPAP: No Currently Using BIPAP: No Cardiac: Yes (CHF; CARDIAC ABLATION FOR SVT ) Coronary Artery Disease, Heart Attack, High Cholesterol, Hypertension, Irregular Heartbeat Neurological: Yes Headaches /Migraines, Neuropathy, Seizure Disorder, Stroke : No Reproductive Disorders: 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 Genitourinary: Yes UTI-Chronic Gastrointestinal: Yes (Reports celiac disease) Ulcer, Gall Bladder Disease Musculoskeletal: Yes (BACK SURGERY FOR SCOLIOSIS; LEFT FOOT SURGERY) Fibromyalgia, Scoliosis, Chronic Back Pain Endocrine: Yes (SUPER MORBID OBESITY--> 500LBS) Diabetes, Insulin dep, Hypothyroidsim HEENT: Yes (EDENTULOUS) Cancer: No Psychosocial: Yes Anxiety, Depression Integumentary: No Blood Disorders: No Family Medical History SOCIAL HISTORY: -ETOH--OCCASIONAL USE -DRUGS--HX OF IV METHAMPHETAMINE USE -SMOKED 1/2 PPD FROM AGE 19 TO 23 PAST SURGICAL HISTORY: -BACK SURGERY FOR SCOLIOSIS AGE 15 -LEFT FOOT RECONSTRUCTION BECAUSE OF PROBLEM WITH ARCH OF FOOT - X 2 -EGD -CARDIAC ABLATION FOR SVT -CHOLECYSTECTOMY -BILATERAL TUBAL LIGATION ADDITIONAL PAST MEDICAL HISTORY: -CLAIMS SHE HAD A "STRESS HEART ATTACK" AT AGE 27--NO CARDIAC CATH, BUT HAD STRESS TEST AND ECHOCARDIOGRAM -SEIZURES DX AGE 33 -HAD POSSIBLE STROKE WITH ONE SEIZURE-HAD LEFT SIDE PARALYSIS FOR 2 WEEKS, COMPLETELY RESOLVED -PERIPHERAL NEUROPATHY -CHRONIC LEFT FOOT NUMBNESS SINCE LEFT FOOT SURGERY -IMPAIRED MOBILITY--HAS USED WALKER, WHEELCHAIR AND MOTORIZED WHEELCHAIR PAST SURCI Physical Exam Vital Signs Vital Signs - First Documented 12/17/20 12/17/20 21:32 21:39 Temp 36.6 Pulse 104 Resp 31 B/P (MAP) 169/110 (129) Pulse Ox 100 O2 Delivery Nasal Cannula O2 Flow Rate 2.00 Capillary Refill : Less Than 3 Seconds Height, Weight, BMI Height: 5'0.00" Weight: 389lbs. 0.4oz. [id number]; 70.37 BMI Method:Stated General Appearance: No Apparent Distress, Obese (MORBIDLY OBESE), Other (DOES NOT APPEAR TO BE IN OBVIOUS DISCOMFORT OR DISTRESS) Respiratory: Normal Breath Sounds Cardiovascular: Tachycardia (110'S ON ARRIVAL) Gastrointestinal: Non Tender, Soft Extremity: Other (UNABLE TO DETERMINE IF EDEMA IS PRESENT DUE TO BODY HABITUS--BOTH LEGS ARE VERY LARGE. TOES ARE PINK AND WARM, BUT UNABLE TO PALPATE PULSES DUE TO BODY HABITUS. NO EXTERNAL EVIDENECE OF TRAUMA OR SIGNS OF INFECTION. LEGS NOT SPECIFICALLY TENDER ANYWHERE --JUST STATES BOTH OF HER ENTIRE LEGS HURT AND IS NOT ANY INCREASE IN PAIN ON PALPATION. ) Neurologic/Psychiatric: Alert, Oriented x3, Normal Mood/Affect, Sensory Deficit (DECREASED SENSATION TO FEET--LEFT > RIGHT), Other (GROSS MOTOR INTACT. ) Skin: Normal Color, Warm/Dry Progress/Results/Core Measures Suspected Sepsis Recent Fever Within 48 Hours: No Infection Criteria Present: None New/Unexplained Altered Menta: No Sepsis Screen: No Definite Risk SIRS Temperature: Pulse: 98 Respiratory Rate: 18 Laboratory Tests 12/17/20 21:50: White Blood Count 8.2 Blood Pressure 169 /110 Mean: 119 Laboratory Tests 12/17/20 21:50: Creatinine 0.89, INR Comment 1.0, Platelet Count 267, Total Bilirubin 0.4 Results/Orders Lab Results Laboratory Tests Test 12/17/20 21:50 12/17/20 23:20 Range/Units White Blood Count 8.2 4.3-11.0 10^3/uL Red Blood Count 4.26 3.80-5.11 10^6/uL Hemoglobin 11.8 11.5-16.0 g/dL Hematocrit 38 35-52 % Mean Corpuscular Volume 89 80-99 fL Mean Corpuscular Hemoglobin 28 25-34 pg Mean Corpuscular Hemoglobin Concent 31 L 32-36 g/dL Red Cell Distribution Width 16.0 H 10.0-14.5 % Platelet Count 267 130-400 10^3/uL Mean Platelet Volume 9.3 9.0-12.2 fL Immature Granulocyte % (Auto) 1 % Neutrophils (%) (Auto) 49 42-75 % Lymphocytes (%) (Auto) 32 12-44 % Monocytes (%) (Auto) 11 0-12 % Eosinophils (%) (Auto) 7 0-10 % Basophils (%) (Auto) 1 0-10 % Neutrophils # (Auto) 4.0 1.8-7.8 10^3/uL Lymphocytes # (Auto) 2.6 1.0-4.0 10^3/uL Monocytes # (Auto) 0.9 0.0-1.0 10^3/uL Eosinophils # (Auto) 0.6 H 0.0-0.3 10^3/uL Basophils # (Auto) 0.0 0.0-0.1 10^3/uL Immature Granulocyte # (Auto) 0.1 0.0-0.1 10^3/uL Percent Immature Platelet Fraction 5.9 0.0-7.6 % Prothrombin Time 13.7 12.2-14.7 SEC INR Comment 1.0 0.8-1.4 Activated Partial Thromboplast Time 26 24-35 SEC D-Dimer 1.96 H 0.00-0.49 UG/ML Sodium Level 136 135-145 MMOL/L Potassium Level 3.9 3.6-5.0 MMOL/L Chloride Level 89 L 98-107 MMOL/L Carbon Dioxide Level 35 H 21-32 MMOL/L Anion Gap 12 5-14 MMOL/L Blood Urea Nitrogen 19 H 7-18 MG/DL Creatinine 0.89 0.60-1.30 MG/DL Estimat Glomerular Filtration Rate > 60 BUN/Creatinine Ratio 21 Glucose Level 392 H 70-105 MG/DL Calcium Level 9.5 8.5-10.1 MG/DL Corrected Calcium 9.8 8.5-10.1 MG/DL Magnesium Level 1.4 L 1.6-2.4 MG/DL Total Bilirubin 0.4 0.1-1.0 MG/DL Aspartate Amino Transf (AST/SGOT) 20 5-34 U/L Alanine Aminotransferase (ALT/SGPT) 27 0-55 U/L Alkaline Phosphatase 101 40-136 U/L Total Creatine Kinase 174 H 29-168 U/L Creatine Kinase MB 0.6 <6.6 NG/ML Myoglobin 35.6 10.0-92.0 NG/ML B-Type Natriuretic Peptide 17.2 <100.0 PG/ML Total Protein 7.2 6.4-8.2 GM/DL Albumin 3.6 3.2-4.5 GM/DL Free Thyroxine 1.18 0.70-1.48 NG/DL TSH Peoa Testing 5.19 H 0.35-4.94 UIU/ML Valproic Acid (Depakene) Level < 2.0 L 50.0-100.0 UG/ML Smear Scan YES Urine Color YELLOW Urine Clarity SL CLOUDY Urine pH 6.0 5-9 Urine Specific [place] <=1.005 1.016-1.022 Urine Protein NEGATIVE NEGATIVE Urine Glucose (UA) 3+ H NEGATIVE Urine Ketones NEGATIVE NEGATIVE Urine Nitrite NEGATIVE NEGATIVE Urine Bilirubin NEGATIVE NEGATIVE Urine Urobilinogen 0.2 < = 1.0 MG/DL Urine Leukocyte Esterase TRACE H NEGATIVE Urine RBC (Auto) NEGATIVE NEGATIVE Urine RBC 2-5 H /HPF Urine WBC 10-25 H /HPF Urine Crystals NONE /LPF Urine Bacteria LARGE H /HPF Urine Casts NONE /LPF Urine Mucus NEGATIVE /LPF Urine Culture Indicated YES My Orders Orders - CASPER ZAFAR DO Ed Iv/Invasive Line Start (12/17/20 21:41) Ekg Tracing (12/17/20 21:41) O2 (12/17/20 21:41) Monitor-Rhythm Ecg Trace Only (12/17/20 21:41) BNP (12/17/20 21:41) Cbc With Automated Diff (12/17/20 21:41) Comprehensive Metabolic Panel (12/17/20 21:41) Creatine Kinase (12/17/20 21:41) Creatine Kinase Mb (12/17/20 21:41) Fibrin Degradation Products (12/17/20 21:41) Magnesium (12/17/20 21:41) Protime With Inr (12/17/20 21:41) Partial Thromboplastin Time (12/17/20 21:41) Thyroid Analyzer (12/17/20 21:41) Myoglobin Serum (12/17/20 21:41) Chest 1 View, Ap/Pa Only (12/17/20 21:41) Valproic Acid (12/17/20 21:48) Free T4 (Free Thyroxine) (12/17/20 21:50) Catheter(Urinary) Insert & Ass 03,15 (12/17/20 23:20) Ua Culture If Indicated (12/17/20 23:20) Vital Signs/I&O 12/17/20 12/17/20 12/17/20 21:32 21:39 23:00 Temp 36.6 Pulse 104 102 Resp 31 20 B/P (MAP) 169/110 (129) 159/99 (119) Pulse Ox 100 100 100 O2 Delivery Nasal Cannula Nasal Cannula Nasal Cannula O2 Flow Rate 2.00 3.00 3.00 Capillary Refill : Less Than 3 Seconds Blood Pressure Mean: 119 Progress Note : Progress Note NO DETERIORATION IN PT'S CONDITION DURING ER STAY PT DID NOT ASK FOR ANY PAIN MEDICATION AND HAD NO COMPLAINTS DURING ER STAY VITALS STABLE, HEART RATE DOWN ONCE PT SETTLED IN BED MULTIPLE STAFF MEMBERS TO TRANSFER PT FROM EMS COT TO ER COT UNABLE TO OBTAIN ULTRASOUND AT THIS HOUR, WILL OBTAIN ULTRASOUND/VENOUS DOPPLER IN AM WILL TREAT EMPIRICALLY WITH LOVENOX UNTIL ULTRASOUND IS COMPLETE ECG Initial ECG Impression Date: Dec 17, 2020 Initial ECG Impression Time: 21:45 Initial ECG Rate: 97 Initial ECG Rhythm: Normal Sinus EKG : EKG Time: 22:34 Rate: 90 Rhythm: Normal Sinus Diagnostic Imaging Comments CXR--NO ACUTE PROCESS, PENDING RADIOLOGIST REVIEW Reviewed: Reviewed by Me Departure Communication (Admissions) [id number]--SPOKE WITH DR. GREENBERG, ACCEPTS PT FOR ADMIT Impression Primary Impression: GENERALIZED BILATERAL LEG PAIN Additional Impressions: Elevated d-dimer INABILITY TO STAND DUE TO LEG PAIN Diabetes mellitus, insulin dependent (IDDM), uncontrolled UTI (urinary tract infection) SUPER MORBID OBESITY Disposition: ADMITTED INPATIENT Condition: Stable Admissions Decision to Admit Reason: Admit from ER (General) Decision to Admit/Date: Dec 17, 2020 Time/Decision to Admit Time: 23:25 Departure-Patient Inst. Referrals: NO,LOCAL PHYSICIAN (PCP) Primary Care Physician CASPER ZAFAR DO Dec 18, 2020 02:40
[2020-12-18] MEDS ORDERED: NF-SOLIF5T PO (03:04)
[2020-12-18] MEDS ORDERED: [UNRECOGNIZED DRUG - CODE] TP (03:08)
[2020-12-18 06:04] LABS: BASOPHILS # (AUTO) 0.1 10^3/uL (0.0-0.1); BASOPHILS % (AUTO) 1 % (0-10); EOSINOPHILS # (AUTO) 0.7 10^3/uL (0.0-0.3); EOSINOPHILS % (AUTO) 8 % (0-10); HEMATOCRIT 36 % (35-52); HEMOGLOBIN 11.3 g/dL (11.5-16.0); LYMPHOCYTES # (AUTO) 3.1 10^3/uL (1.0-4.0); LYMPHOCYTES % (AUTO) 37 % (12-44); MEAN CORPUSCULAR HEMOGLOBIN 28 pg (25-34); MEAN CORPUSCULAR HGB CONC 32 g/dL (32-36); MEAN CORPUSCULAR VOLUME 89 fL (80-99); MONOCYTES # (AUTO) 0.9 10^3/uL (0.0-1.0); MONOCYTES % (AUTO) 11 % (0-12); NEUTROPHILS # (AUTO) 3.6 10^3/uL (1.8-7.8); NEUTROPHILS % (AUTO) 43 % (42-75); PLATELET COUNT 337 10^3/uL (130-400); WHITE BLOOD COUNT 8.4 10^3/uL (4.3-11.0)
[2020-12-18 06:24] LABS: ALBUMIN 3.6 GM/DL (3.2-4.5); CHLORIDE 90 MMOL/L (98-107); POTASSIUM 3.2 MMOL/L (3.6-5.0); SODIUM 138 MMOL/L (135-145)
[2020-12-18] MEDS: inSUlin ASPART (NovoLOG) 1 UNIT/0.01 ML (CHARGE PER UNIT) SC SCH ×4 (06:24→20:17)
[2020-12-18 06:25] LABS: CALCIUM 9.3 MG/DL (8.5-10.1)
[2020-12-18 06:26] LABS: GLUCOSE 309 MG/DL (70-105); TOTAL PROTEIN 6.9 GM/DL (6.4-8.2)
[2020-12-18 06:27] LABS: CARBON DIOXIDE 34 MMOL/L (21-32)
[2020-12-18 06:28] LABS: BILIRUBIN,TOTAL 0.4 MG/DL (0.1-1.0)
[2020-12-18 06:30] LABS: ALKALINE PHOSPHATASE 81 U/L (40-136); CREATININE SERUM 0.78 MG/DL (0.60-1.30); GFR ESTIMATED > 60
[2020-12-18 06:31] LABS: BUN/CREATININE RATIO 23
[2020-12-18 06:33] LABS: ALANINE AMINOTRANSFERASE 25 U/L (0-55)
--- NOTE | 2020-12-18 07:53 | Diagnostic Imaging Report ---
INDICATION: Bilateral leg pain and edema. Time of exam: 10:43 PM Correlation is made with prior chest from 11/19/2020. Heart is enlarged but lungs are clear. No infiltrate or failure is detected. There is no effusion or pneumothorax. IMPRESSION: No acute cardiopulmonary process is detected. Dictated by: Dictated on workstation # [id number]
--- NOTE | 2020-12-18 08:40 | History & Physical-Hospitalist ---
History of Present Illness HPI/Chief Complaint Chief complaint: Inability to walk due to super obesity History of present illness: This is a 50-year-old white female known to me from multiple hospital stays for volume overload due to super morbid obesity who presents to the ER complaining of inability to walk. Her BMI is 70. There was a concern with how the pain was reported in her legs that she had bilateral DVTs but venous Doppler ultrasound showed no evidence of any DVTs. She had been placed on therapeutic dose Lovenox. She reports that she went to [facility] and spent 10 days there the first part of the month but they sent her home. said that he cannot get her into a care home unless he pays $20,000 in addition to the Medicaid benefits. Unclear of all these details if they are reliable or not. Source: patient, family, RN/MD, old records Exam Limitations: no limitations Date Seen 12/18/20 Time Seen by a Provider: 11:30 Attending Physician Carmen Strange DO PCP No,Local Physician Referring Physician Date of Admission Dec 17, 2020 at 23:20 Home Medications & Allergies Home Medications Reviewed patient Home Medication Reconciliation performed by pharmacy medication reconciliations downstream biomanufacturing technician and/or nursing. Patients Allergies have been reviewed. Allergies Allergies Coded Allergies duloxetine (Verified Allergy, Unknown, 03/17/20) tramadol (Verified Allergy, Unknown, 03/17/20) butorphanol (Unverified Adverse Reaction, Severe, 08/04/18) HALLUCINATIONS Penicillins (Unverified Adverse Reaction, Unknown, NAUSEA, 08/04/18) Past Yzcwxjz-Ohifmr-Rpvoln Hx Patient Social History Marrital Status: Employed/Student: unemployed Tobacco Use?: No Smoking Status: Former Smoker Substance type: Methamphetamine Additional substance use comme: use to do Meth Alcohol Use?: No Pt feels they are or have been: No Immunizations Up To Date Date of Influenza Vaccine: May 01, 2020 First/Initial COVID19 Vaccinat: September 2020 Second COVID19 Vaccination Mamadou: October 2020 Tetanus Booster (TDap): Unknown PED Vaccines UTD: Yes Seasonal Allergies Seasonal Allergies: No Current Status Advance Directives: No Communicates: Verbally Primary Language: Malaysian Preferred Spoken Language: Malaysian Is interpretation needed?: No Sensory deficits: Other Implanted or Applied Medical D: None Past Medical History Surgeries: Cardiac, Section, Gallbladder, Orthopedic, Tubal Ligation Asthma, Pneumonia, Chronic Bronchitis, Sleep Apnea, COPD Currently Using CPAP: No Currently Using BIPAP: No Coronary Artery Disease, Heart Attack, High Cholesterol, Hypertension, Irregular Heartbeat Headaches /Migraines, Neuropathy, Seizure Disorder, Stroke 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 UTI-Chronic Ulcer, Gall Bladder Disease Fibromyalgia, Scoliosis, Chronic Back Pain Diabetes, Insulin dep, Hypothyroidsim Anxiety, Depression Blood Disorders: No Hypertension Hypothyroidism Super super obesity Presumed obstructive sleep apnea Presumed obesity hypoventilation syndrome Family Medical History SOCIAL HISTORY: -ETOH--OCCASIONAL USE -DRUGS--HX OF IV METHAMPHETAMINE USE -SMOKED 1/2 PPD FROM AGE 19 TO 23 PAST SURGICAL HISTORY: -BACK SURGERY FOR SCOLIOSIS AGE 15 -LEFT FOOT RECONSTRUCTION BECAUSE OF PROBLEM WITH ARCH OF FOOT - X 2 -EGD -CARDIAC ABLATION FOR SVT -CHOLECYSTECTOMY -BILATERAL TUBAL LIGATION ADDITIONAL PAST MEDICAL HISTORY: -CLAIMS SHE HAD A "STRESS HEART ATTACK" AT AGE 27--NO CARDIAC CATH, BUT HAD STRESS TEST AND ECHOCARDIOGRAM -SEIZURES DX AGE 33 -HAD POSSIBLE STROKE WITH ONE SEIZURE-HAD LEFT SIDE PARALYSIS FOR 2 WEEKS, COMPLETELY RESOLVED -PERIPHERAL NEUROPATHY -CHRONIC LEFT FOOT NUMBNESS SINCE LEFT FOOT SURGERY -IMPAIRED MOBILITY--HAS USED WALKER, WHEELCHAIR AND MOTORIZED WHEELCHAIR PAST SURCI Review of Systems Constitutional: see HPI Musculoskeletal: joint pain Physical Exam Physical Exam Vital Signs Vital Signs - First Documented 12/17/20 12/17/20 21:32 21:39 Temp 36.6 Pulse 104 Resp 31 B/P (MAP) 169/110 (129) Pulse Ox 100 O2 Delivery Nasal Cannula O2 Flow Rate 2.00 Capillary Refill : Less Than 3 Seconds Height, Weight, BMI Height: 5'0.00" Weight: 389lbs. 0.4oz. 176.600507as; 70.37 BMI Method:Stated General Appearance: No Apparent Distress, Anxious, Chronically ill, Obese Respiratory: Lungs Clear Cardiovascular: Regular Rate, Rhythm Extremity: Pedal Edema Neurologic/Psychiatric: Alert, Oriented x3 Results Results/Procedures Labs Laboratory Tests 12/17/20 21:50 12/18/20 05:35 Patient resulted labs reviewed. Assessment/Plan Admission Diagnosis Assessment: Inability to ambulate Bilateral leg pain but no DVT on ultrasound Hypothyroidism Super morbid obesity Plan: Supportive care Needs care home Needs to lose 300 pounds Admission Status: Inpatient Order (span 2 midnights) Reason for Inpatient Admission: Inability to walk with super morbid obesity CARMEN STRANGE DO Dec 18, 2020 08:40
[2020-12-18] MEDS ORDERED: ENOXAPARIN 100 MG/1 ML (LOVENOX) SYR SC SCH (11:00)
[2020-12-18] MEDS ORDERED: RT-ALBUTEROL SULF 2.5 MG/3 ML PRE-MIX VIAL INH PRN (12:15)
[2020-12-18] MEDS ORDERED: ONDANSETRON 4 MG (ZOFRAN) ORAL DISSOLVE TAB SL PRN (12:15)
--- NOTE | 2020-12-18 12:31 | Diagnostic Imaging Report ---
PROCEDURE: US Venous Lower Ext Xavier. TECHNIQUE: Multiple real-time grayscale images were obtained over the lower extremities in various projections, bilaterally. Additional duplex Doppler and color Doppler images were also obtained. INDICATION: Bilateral lower extremity pain and elevated D-dimer. There is no evidence of right or left lower extremity DVT. Both lower extremity deep venous systems show normal augmentation and response to Valsalva. Compression could not be performed due to morbid obesity. No thrombus is seen. There is no fluid collection or mass. IMPRESSION: No evidence of right or left lower extremity DVT. Dictated by: Dictated on workstation # [id number]
--- NOTE | 2020-12-18 12:53 | Physical Therapy Evaluation ---
PT Evaluation-General Medical Diagnosis Admission Date Dec 17, 2020 at 23:20 Medical Diagnosis: PERIPHERAL NEUROPATHY Onset Date: Dec 17, 2020 Therapy Diagnosis Therapy Diagnosis: Gait deficit, Strength deficit Height/Weight Height (Feet): 5 Height (Inches): 0.00 Weight (Pounds): 389 Weight (Ounces): 0.4 Precautions Precautions/Isolations: Fall Prevention, Standard Precautions, Pressure Ulcer Weight Bear Status Right Lower Extremity: Right Weight Bearing/Tolerated Left Lower Extremity: Left Weight Bearing/Tolerated Referral Physician: Dr. Strange Reason for Referral: Evaluation/Treatment Medical History Pertinent Medical History: COPD, DM, HTN, Hypothroidism, [place], Neuropathy Reviewed History: Yes Social History Home: Single Level Current Living Status: Significant Other Entry Into Home: Stairs With Railing, Stairs Without Railing PT Steps Into Home: 2 PT Steps Inside Home: 0 Prior Prior Level of Function SCALE: Activities may be completed with or without assistive devices. 4-Hbkpvdzjkf-lldispf completes the activity by him/herself with no assistance from a helper. 5-Set-up or Clean-up Assistance-helper sets up or cleans up; patient completes activity. [place] assists only prior to or following the activity. 4-Supervision or Touching Assistance-helper provides verbal cues and/or touching/steadying and/or contact guard assistance as patient completes activity. Assistance may be provided throughout the activity or intermittently. 3-Partial/Moderate Assistance-helper does LESS THAN HALF the effort. [place] lifts, holds or supports trunk or limbs, but provides less than half the effort. 2-Substantial/Maximal Assistance-helper does MORE THAN HALF the effort. [place] lifts or holds trunk or limbs and provides more than half the effort. 6-Yefxtoply-ujuays does ALL the effort. Patient does none of the effort to complete the activity. Or, the assistance of 2 or more helpers is required for the patient to complete the activity. If activity was not attempted, code reason: 7-Patient Refused. 9-Not Applicable-not attempted and the patient did not perform the activity before the current illness, exacerbation or injury. 10-Not Attempted due to Environmental Limitations-(lack of equipment, weather restraints, etc.). 88-Not Attempted due to Medical Conditions or Safety Concerns. Bed Mobility: 6 Transfers (B,C,W/C): 6 Gait: 6 Stairs: 6 Wheelchair Mobility: 88 Indoor Mobility (Ambulation): Independent Stairs: Independent Prior Devices Use: Walker Prior Device Use: 4WW PT Evaluation-Current Subjective Patient reports she requested a transfer from [facility] in [place], [place] because they were not doing enough to help her. Patient states "PT there only moved me from the bed to the chair and thats it. They didn't do anything else with me and I want to walk again." Pain Numeric Pain Scale: 10-Worst Possible Pain Location: Right, Left Location Body Site: Foot Pain Description: Ache, Throbbing, Sharp Pt/Family Goals Patient wants to be able to ambulate on her own again. Objective Patient Orientation: Person, Place, Time, Situation Attachments: Oxygen 3 L O2 during evaluation. Integumentary/Posture Posture Mildly rounded shoulders during sitting. Sensory Vision: Functional Hearing: Functional Sensation Right Lower Extremit: Intact Sensation Left Lower Extremity: Intact Transfers Roll Left to Right (QC): 2 Sit to Lying (QC): 1 Lying to Sitting/Side of Bed(Q: 1 Sit to Stand (QC): 1 Chair/Wlc-qt-Znaxc Xfer(QC): 1 Toilet Transfer (QC): 1 Car Transfer (QC): 88 Gait Does the Patient Walk?: No and Walking Goal IS indicated Mode of Locomotion: Both Anticipated Mode of Locomotion: Wheelchair Walk 10 feet (QC): 1 Walk 50 ft with 2 Turns(QC): 1 Walk 150 ft (QC): 1 Walking 10ft/uneven surface-QC: 1 Distance: 0 Gait Assistive Device: Walker 4 Wheeled Wheelchair Training Does the Pt Use a Wheelchair?: No Distance: 0 Wheel 50 ft with 2 turns (QC): 1 Wheel 150 ft (QC): 1 Type of Wheelchair: Manual Stairs #of Steps: 1 1 Step (curb) (QC): 1 4 Steps (QC): 1 12 Steps (QC): 1 Walking Assistive Device: Walker Balance Sitting Static: Poor Sitting Dynamic: Poor Standing Static: Poor Standing Dynamic: Poor Picking up an Object (QC): 1 Assessment/Needs Patient supine in bed upon PT arrival. She requires mod/max A for all observed bed mobility and total A with overhead lift for transfer to the chair. Once in the chair, patient was able to perform sit to stand with FWW and max A x 2. Patient tolerated ~ 30 seconds of standing. Patient performs LE therapeutic exercise in the chair. Patient in the chair post treatment with all needs met , nursing notified, call light in reach. Rehab Potential: Fair Equipment Needs W/C PT Short Term Goals Short Term Goals Time Frame: Jan 01, 2021 Roll Left & Right: 3 Sit to lyin Lying to sitting on side of be: 3 Sit to stand: 3 Chair/pww-sg-iackn transfer: 2 Toilet transfer: 2 Car transfer: 2 Walk 10 feet: 2 Walk 50 feet with two turns: 2 Walk 150 feet: 2 Walking 10ft on uneven surface: 1 1 step (curb): 1 4 steps: 1 12 steps: 1 Picking up objects: 1 Does pt use a wc or scooter: Yes Wheel 50ft w/2 turns: 3 Wheel 150 feet: 3 Type: Manual PT Dry Dip Worker Goals Dry Dip Worker Goals PT Dry Dip Worker Goals Time Frame: Jan 15, 2021 Roll Left & Right (QC): 4 Sit to Lying (QC): 4 Lying-Sitting on Side/Bed(QC): 4 Sit to Stand (QC): 4 Chair/Avz-xp-Aibkf Xfer(QC): 3 Toilet Transfer (QC): 3 Car Transfer (QC): 3 Does the Patient Walk: No and Walking Goal IS indicated Walk 10 feet (QC): 3 Walk 50ft with 2 Turns (QC): 3 Walk 150 ft (QC): 3 Walking 10ft on Uneven Surface: 3 1 Step (curb) (QC): 3 4 Steps (QC): 3 12 Steps (QC): 3 Picking up an Object (QC): 3 Does the Pt use WC or Scooter?: Yes Wheel 50 feet with 2 turns (QC: 4 Type: Manual Wheel 150 feet: 4 Type: Manual PT Plan Problem List Problem List: Activity Tolerance, Functional Strength, Safety, Balance, Gait, Transfer, Bed Mobility Treatment/Plan Treatment Plan: Continue Plan of Care Treatment Plan: Bed Mobility, Education, Functional Activity Tatiana, Group Therapy, Gait, Safety, Therapeutic Exercise, Transfers Treatment Duration: Feb 19, 2021 Frequency: At least 5 of 7 days/Wk (IRF) Estimated Hrs Per Day: .25 hour per day Patient and/or Family Agrees t: Yes Safety Risks/Education Patient Education: Gait Training, Transfer Techniques, Reviewed Precautions, Correct Positioning, Disease Process, Safety Issues Teaching Recipient: Patient Teaching Methods: Demonstration, Discussion Response to Teaching: Verbalize Understanding Time/GCodes Time In: 900 Time Out: 940 Total Billed Treatment Time: 40 Total Billed Treatment Visit, Shannon Saldivar FA TOCCI, JOHN A PT Dec 18, 2020 12:53
--- NOTE | 2020-12-18 12:59 | Occupational Therapy Eval ---
OT Evaluation-General/PLF Medical Diagnosis Admission Date Dec 17, 2020 at 23:20 Medical Diagnosis: Bilat leg de león, uncontrolled DM, UTI Onset Date: Dec 17, 2020 Therapy Diagnosis Therapy Diagnosis: decr self care, weakness, decr act tolerance, decr funct mobility Height/Weight Height (Feet): 5 Height (Inches): 0.00 Weight (Pounds): 389 Weight (Ounces): 0.4 Precautions Precautions/Isolations: Fall Prevention, Standard Precautions, Pressure Ulcer Referral Physician: Alexandr Referral Reason: Evaluation/Treatment Medical History Pertinent Medical History: CAD, COPD, DM, Heart Failure, HTN, Hypothroidism, [place], Neuropathy, Smoking (former) Additional Medical History Asthma, pneumonia, chronic bronchitis. Sleep apnea, COPD. Irreg heart beat. Headache/migraine. Seizure disorder. Stroke. Celiac disease. Scoliosis surgery. L foot surgery. Hx meth use Current History Admitted through ED with bilat leg pain and unable to walk. Had recent stay at [facility] in [place] (6-4 to 6-14 for CHF, ARF, CO2 narcosis) and said she hasn't been able to walk since she got home. Reviewed History: Yes Social History Current Living Status: Spouse ADL-Prior Level of Function SCALE: Activities may be completed with or without assistive devices. 4-Vzgvplpxcc-tiznhxn completes the activity by him/herself with no assistance from a helper. 5-Set-up or Clean-up Assistance-helper sets up or cleans up; patient completes activity. [place] assists only prior to or following the activity. 4-Supervision or Touching Assistance-helper provides verbal cues and/or touching/steadying and/or contact guard assistance as patient completes activity. Assistance may be provided throughout the activity or intermittently. 3-Partial/Moderate Assistance-helper does LESS THAN HALF the effort. [place] lifts, holds or supports trunk or limbs, but provides less than half the effort. 2-Substantial/Maximal Assistance-helper does MORE THAN HALF the effort. [place] lifts or holds trunk or limbs and provides more than half the effort. 9-Mjxvrhyoo-tiqnwz does ALL the effort. Patient does none of the effort to complete the activity. Or, the assistance of 2 or more helpers is required for the patient to complete the activity. If activity was not attempted, code reason: 7-Patient Refused. 9-Not Applicable-not attempted and the patient did not perform the activity before the current illness, exacerbation or injury. 10-Not Attempted due to Environmental Limitations-(lack of equipment, weather restraints, etc.). 88-Not Attempted due to Medical Conditions or Safety Concerns. ADL PLOF Comments Pt and reported that she needed help with shoes and socks, getting pants on (she can pull up form knees) but she can dress upper body herself (no bra). She needs help getting in and out of bathtub (has a shower chair) and washing legs, bottom, back. She does not have teeth and said that she hasn't been able to brush her hair recently. She can feed herself. reported that she needs help with toilet transfers and wiping./clothing management. She usually gets around the house by walker, w/c or motorized w/c. She doesn't help much with home care. She uses oxygen at home. Her said that she has been needing more help with ADLs for about the last 90 days. OT Current Status Subjective Pt seen in room, up in bed, agreeable to OT. Pain rated 10/10 in legs and she asked nursing for pain meds. Appearance Alert and cooperative. Mental Status/Objective Attachments: Alcantar Catheter, IV, Oxygen Current Glasses/Contacts: Yes (doesn't use them) Hearing Aids: No Dentures/Partials: No Hand Dominance: Left Upper Extremity ROM She was able to reach overhead. AROM grossly WFL bilat. Unable to make full fist Upper Extremity Sensation Pt reported no problems Upper Extremity Strength Grossly 4/5 bilat ADL-Treatment ADL-Current PT used lift to transfer from bed to recliner. Jc PT said that it took 2 people to stand her max assist and she stood for less than a minute. She uses a bedpan for BMs and has Alcantar. She said that she is able to feed herself without assistance. Education OT Patient Education: Purpose of tx/functional activities, Rehab process Teaching Recipient: Patient, Family Teaching Methods: Discussion Response to Teaching: Verbalize Understanding OT Brick Sorter Goals Brick Sorter Goals Time Frame: Dec 25, 2020 Eating (QC): 6 Oral Hygiene (QC): 9 Toileting Hygiene (QC): 3 Shower/Bathe Self (QC): 3 Upper Body Dressing (QC): 5 Lower Body Dressing (QC): 3 On/Off Footwear (QC): 2 Additional Goals: 1-Demonstrate ADL Tasks, 2-Verbalize Understanding, 3- ImproveStrength/Tatiana 1=Demonstrate adherence to instructed precautions during ADL tasks. 2=Patient will verbalize/demonstrate understanding of assistive devices/modifications for ADL. 3=Patient will improve strength/tolerance for activity to enable patient to perform ADL's. OT Education/Plan Problem List/Assessment Assessment: Decreased Activ Tolerance, Decreased UE Strength, Dependent Transfers, Impaired Bed Mobility, Impaired Self-Care Skills Pt would benefit from skilled OT to increase her independence in basic self care Discharge Recommendations Plan/Recommendations: Continue POC Treatment Plan/Plan of Care Treatment,Training & Education: Yes Patient would benefit from OT for education, treatment and training to promote independence in ADL's, mobility, safety and/or upper extremity function for ADL's. Plan of Care: ADL Retraining, Functional Mobility, UE Funct Exercise/Act Treatment Duration: Dec 25, 2020 Frequency: 5 times per week Estimated Hrs Per Day: .25 hour per day (.25 to .5) Agreement: Yes Rehab Potential: Fair Time/GCodes Start Time: 12:03 Stop Time: 12:12 Total Time Billed (hr/min): 9 Billed Treatment Time visit 9 minutes evaluation moderate intensity STEVE VILLASENOR OT Dec 18, 2020 12:58
[2020-12-18] MEDS ORDERED: SUMAtriptan 50 MG (IMITREX) TAB PO PRN (13:00)
[2020-12-18] MEDS: inSUlin ASPART (NovoLOG) 1 UNIT/0.01 ML (CHARGE PER UNIT) SQ SCH ×2 (14:55→20:31)
[2020-12-18] MEDS ORDERED: ENOXAPARIN 60 MG/0.6 ML (LOVENOX) SYR SC SCH (16:15)
[2020-12-18] MEDS: DIVALPROEX EXT RELEASE 500 MG (DEPAKOTE ER) TAB PO SCH (20:10)
[2020-12-18] MEDS: NAPROXEN 250 MG (NAPROSYN) TABLET PO SCH (20:10)
[2020-12-18] MEDS: PRAMIPEXOLE 0.5 MG TAB (MIRAPEX) PO SCH (20:10)
[2020-12-18] MEDS: BACLOFEN 10 MG (LIORESAL) TAB PO SCH (20:10)
[2020-12-18] MEDS: meTOprolol TARTRATE 50 MG (LOPRESSOR) TAB PO SCH (20:10)
[2020-12-18] MEDS: PREGABALIN 100 MG (LYRICA) CAPSULE PO SCH (20:10)
[2020-12-18] MEDS ORDERED: [UNRECOGNIZED DRUG - OTHER] TP SCH (21:00)
[2020-12-18] MEDS: ENOXAPARIN 60 MG/0.6 ML (LOVENOX) SYR SC SCH (23:22)
[2020-12-19] MEDS: fentaNYL INJ 100 MCG/2 ML AMP IVP PRN (01:45)
[2020-12-19 03:25] VITALS: BP 143/85
[2020-12-19] MEDS: inSUlin ASPART (NovoLOG) 1 UNIT/0.01 ML (CHARGE PER UNIT) SC SCH ×4 (05:32→21:57)
--- NOTE | 2020-12-19 05:52 | Progress Note - Hospitalist ---
Subjective HPI/CC On Admission Date Seen by Provider: Dec 19, 2020 Time Seen by Provider: 11:30 Chief complaint: Inability to walk due to super obesity History of present illness: This is a 50-year-old white female known to me from multiple hospital stays for volume overload due to super morbid obesity who presents to the ER complaining of inability to walk. Her BMI is 70. There was a concern with how the pain was reported in her legs that she had bilateral DVTs but venous Doppler ultrasound showed no evidence of any DVTs. She had been placed on therapeutic dose Lovenox. She reports that she went to [facility] and spent 10 days there the first part of the month but they sent her home. said that he cannot get her into a penitentiary unless he pays $20,000 in addition to the Medicaid benefits. Unclear of all these details if they are reliable or not. Subjective/Events-last exam Patient about the same No significant concerns Port will be needed No pain is reported Review of Systems General: Fatigue, Malaise Pulmonary: Dyspnea Objective Exam Vital Signs Vital Signs Date Time Temp Pulse Resp B/P (MAP) Pulse Ox O2 Delivery O2 Flow Rate FiO2 12/20/20 05:00 36.0 84 20 113/60 (77) 99 Nasal Cannula 3.00 Capillary Refill : Less Than 3 Seconds General Appearance: No Apparent Distress, WD/WN, Chronically ill, Obese Respiratory: Lungs Clear Cardiovascular: Regular Rate, Rhythm Neurologic/Psychiatric: Alert, Oriented x3 Results/Procedures Lab Patient resulted labs reviewed. Assessment/Plan Assessment and Plan Assess & Plan/Chief Complaint Assessment: Inability to ambulate Bilateral leg pain but no DVT on ultrasound Hypothyroidism Super morbid obesity Plan: Supportive care Needs penitentiary Needs to lose 300 pounds 12/19/2020: Lovenox DVT prophylaxis Needs CAMILA Santos DO Dec 19, 2020 05:52
[2020-12-19 08:00] VITALS: BP 160/78
[2020-12-19] MEDS ORDERED: SOLIFENACIN 5 MG TAB (VESICARE) NON-FORMULARY PO SCH (09:00)
[2020-12-19] MEDS: inSUlin ASPART (NovoLOG) 1 UNIT/0.01 ML (CHARGE PER UNIT) SQ SCH ×3 (09:29→21:58)
[2020-12-19] MEDS: LOSARTAN 100 MG (COZAAR) TABLET PO SCH (09:30)
[2020-12-19] MEDS: meTOprolol TARTRATE 50 MG (LOPRESSOR) TAB PO SCH ×2 (09:30→21:56)
[2020-12-19] MEDS: DIVALPROEX EXT RELEASE 500 MG (DEPAKOTE ER) TAB PO SCH ×2 (09:30→21:56)
[2020-12-19] MEDS: ASPIRIN E.C. 81 MG (ECOTRIN) TAB PO SCH (09:30)
[2020-12-19] MEDS: KCL 20 MEQ TAB (K-DUR) PO SCH (09:30)
[2020-12-19] MEDS: NAPROXEN 250 MG (NAPROSYN) TABLET PO SCH ×2 (09:31→21:56)
[2020-12-19] MEDS: PREGABALIN 100 MG (LYRICA) CAPSULE PO SCH ×2 (09:31→21:55)
[2020-12-19] MEDS: NITROFURANTOIN 100 MG (MACROBID) CAPSULE PO SCH ×2 (09:31→21:55)
[2020-12-19] MEDS: PANTOPRAZOLE 40 MG (PROTONIX) TAB PO SCH (09:31)
[2020-12-19] MEDS: LEVOTHYROXINE 100 MCG (LEVOTHROID) TAB PO SCH (09:32)
[2020-12-19] MEDS: ENOXAPARIN 60 MG/0.6 ML (LOVENOX) SYR SC SCH ×2 (11:30→21:55)
[2020-12-19 12:00] VITALS: BP 141/78
[2020-12-19 15:33] VITALS: BP 114/54
[2020-12-19 19:25] VITALS: BP 103/54
--- NOTE | 2020-12-19 20:05 | Progress Note-Pre Operative ---
Pre-Operative Progress Note H&P Reviewed The H&P was reviewed, patient examined and no changes noted. Date Seen by Provider: Dec 19, 2020 Time Seen by Provider: 22:00 Date H&P Reviewed: Dec 19, 2020 Time H&P Reviewed: 22:00 Pre-Operative Diagnosis: super obesity, sleep apnea, diabetes, poor peripheral venous circulation ALVERTO JEAN MD Dec 19, 2020 20:05
[2020-12-19] MEDS: PRAMIPEXOLE 0.5 MG TAB (MIRAPEX) PO SCH (21:55)
[2020-12-19] MEDS: BACLOFEN 10 MG (LIORESAL) TAB PO SCH (21:56)
--- NOTE | 2020-12-19 22:27 | CONSULTATION REPORT ---
DATE OF SERVICE: 12/19/2020 ADMITTING PHYSICIAN: Dr. Strange. HISTORY OF PRESENT ILLNESS: The patient is a 50-year-old female with history of super obesity and a body mass index of greater than 70. She has been hospitalized multiple times due to volume overload as well as inability to walk. She had also reported pain in her bilateral lower extremities and venous duplex ultrasound was performed, which did not show any DVTs. She also reports that she was recently hospitalized at [facility] for approximately 10 days. She has multiple comorbidities related to her obesity as well. Due to her super morbid obesity and frequent admissions as well as need for IV access and frequent blood draws as well as poor peripheral venous circulation, will require a Groshong implantable catheter. PAST MEDICAL HISTORY: Super obese, asthma, history of pneumonia, COPD, sleep apnea, coronary artery disease, history of myocardial infarction, hypercholesterolemia, hypertension, cardiac arrhythmia, migraine headaches, neuropathy, seizure disorder, possible history of stroke, chronic urinary tract infection, scoliosis, degenerative joint disease, diabetes, hypothyroid, anxiety, and depression. PAST SURGICAL HISTORY: section, cholecystectomy, tubal ligation, and orthopedic procedure. ALLERGIES: DULOXETINE, TRAMADOL, BUTORPHANOL, PENICILLIN. MEDICATIONS: Albuterol, aspirin, atorvastatin, baclofen, divalproex, furosemide, hydrochlorothiazide, aspartate insulin, levothyroxine, losartan, metoprolol, naproxen, Zofran, Protonix, potassium, pramipexole, pregabalin, VESIcare, and sumatriptan. SOCIAL HISTORY: Previous smoker, quit at age 23. Remote history of methamphetamine use. Social alcohol. FAMILY HISTORY: Noncontributory. VITAL SIGNS: Temperature 35.7, blood pressure 103/54, pulse 84, respirations 20, pulse ox 97% on 3 liters nasal cannula. Current weight 389 pounds at 5 feet 0 inches and a body mass index of 70.3. REVIEW OF SYSTEMS: This is an obese female, currently in no acute distress. She is experiencing exertional shortness of breath and also has significant difficulty with ambulation. No cough or sputum production. No chest pain, palpitations, diaphoresis. No nausea, vomiting. No known diarrhea, no constipation, no red blood per rectum, no dark tarry stools. No fever, chills, no recent inadvertent weight loss. All other review of systems negative. PHYSICAL EXAMINATION: CHEST: Decreased breath sounds in bilateral lung bases. HEART: Regular, no murmurs. EXTREMITIES: +3/3 bilateral lower extremity edema, negative Homans sign. HEENT: No scleral icterus. NECK: No cervical lymphadenopathy. ABDOMEN: Soft, nontender, and nondistended. SKIN: Warm, dry. LABORATORY DATA: WBC 8.4, hemoglobin 11.3, hematocrit 36, platelets 337. BUN 18, and creatinine 0.78. ASSESSMENT AND PLAN: A 50-year-old female with categorization of super obese with multiple medical comorbidities including diabetes, hypertension, hypercholesterolemia, sleep apnea, degenerative joint disease, bilateral lower extremity edema with difficulty with ambulation. She also requires multiple hospital admissions and IV medications as well as frequent blood draws and has poor peripheral venous circulation and will require Groshong implantable catheter, which we will schedule on this admission. Job ID: [id number] DocumentID: [id number] Dictated Date: 12/19/2020 20:03:48 Care Administrative Tech Date: 12/19/2020 22:26:30 Dictated By: ALVERTO JEAN MD
[2020-12-20] VITALS (10 sets, daily range): BP systolic 110–139; BP diastolic 55–85
[2020-12-20] MEDS: inSUlin ASPART (NovoLOG) 1 UNIT/0.01 ML (CHARGE PER UNIT) SC SCH ×4 (06:21→21:13)
[2020-12-20] MEDS: DIVALPROEX EXT RELEASE 500 MG (DEPAKOTE ER) TAB PO SCH ×2 (09:24→21:16)
[2020-12-20] MEDS: LOSARTAN 100 MG (COZAAR) TABLET PO SCH (09:24)
[2020-12-20] MEDS: ASPIRIN E.C. 81 MG (ECOTRIN) TAB PO SCH (09:25)
[2020-12-20] MEDS: KCL 20 MEQ TAB (K-DUR) PO SCH (09:25)
[2020-12-20] MEDS: PREGABALIN 100 MG (LYRICA) CAPSULE PO SCH ×2 (09:25→21:15)
[2020-12-20] MEDS: LEVOTHYROXINE 100 MCG (LEVOTHROID) TAB PO SCH (09:26)
[2020-12-20] MEDS: PANTOPRAZOLE 40 MG (PROTONIX) TAB PO SCH (09:26)
[2020-12-20] MEDS: NAPROXEN 250 MG (NAPROSYN) TABLET PO SCH ×2 (09:26→21:17)
[2020-12-20] MEDS: NITROFURANTOIN 100 MG (MACROBID) CAPSULE PO SCH ×2 (09:26→21:15)
[2020-12-20] MEDS: inSUlin ASPART (NovoLOG) 1 UNIT/0.01 ML (CHARGE PER UNIT) SQ SCH ×3 (09:27→21:15)
[2020-12-20] MEDS: meTOprolol TARTRATE 50 MG (LOPRESSOR) TAB PO SCH ×2 (09:36→21:15)
--- NOTE | 2020-12-20 10:29 | Physical Therapy Daily Note ---
PT Daily Note-Current Subjective Patient agrees to PT. Spouse present and very attentive. Mental Status Patient Orientation: Normal For Age Attachments: Oxygen, Alcantar Catheter Transfers SCALE: Activities may be completed with or without assistive devices. 9-Meusppxnhn-hqqdydd completes the activity by him/herself with no assistance from a helper. 5-Set-up or Clean-up Assistance-helper sets up or cleans up; patient completes activity. [place] assists only prior to or following the activity. 4-Supervision or Touching Assistance-helper provides verbal cues and/or touching/steadying and/or contact guard assistance as patient completes activity. Assistance may be provided throughout the activity or intermittently. 3-Partial/Moderate Assistance-helper does LESS THAN HALF the effort. [place] lifts, holds or supports trunk or limbs, but provides less than half the effort. 2-Substantial/Maximal Assistance-helper does MORE THAN HALF the effort. [place] lifts or holds trunk or limbs and provides more than half the effort. 1-Bdgnkedce-holqly does ALL the effort. Patient does none of the effort to complete the activity. Or, the assistance of 2 or more helpers is required for the patient to complete the activity. If activity was not attempted, code reason: 7-Patient Refused. 9-Not Applicable-not attempted and the patient did not perform the activity before the current illness, exacerbation or injury. 10-Not Attempted due to Environmental Limitations-(lack of equipment, weather restraints, etc.). 88-Not Attempted due to Medical Conditions or Safety Concerns. Sit to Lying (QC): 2 Lying to Sitting/Side of Bed(Q: 2 Sit to Stand (QC): 3 sit to stand to FWW with assist of 2 for safety Weight Bearing Right Lower Extremity: Right Weight Bearing/Tolerated Left Lower Extremity: Left Weight Bearing/Tolerated Gait Training Does the Patient Walk?: Yes Distance: 8 side steps Walk 10 feet (QC): 3 Gait Assistive Device: FWW shuffle gait sequence with inability to clear feet Exercises Seated Therapy Exercises: Ankle pumps, Long arc quads Seated Reps: 15 (2 sets) Assessment Patient tolerated treatment well and returned to bed. Patient able to stand to FWW and has improved mobility. Patient placed in Trendelenberg to perform bed mobility. PT Short Term Goals Short Term Goals Time Frame: Jan 01, 2021 Roll Left & Right: 3 Sit to lyin Lying to sitting on side of be: 3 Sit to stand: 3 Chair/pbs-qz-mwhol transfer: 2 Toilet transfer: 2 Car transfer: 2 Walk 10 feet: 2 Walk 50 feet with two turns: 2 Walk 150 feet: 2 Walking 10ft on uneven surface: 1 1 step (curb): 1 4 steps: 1 12 steps: 1 Picking up objects: 1 Does pt use a wc or scooter: Yes Wheel 50ft w/2 turns: 3 Wheel 150 feet: 3 Type: Manual PT Half-Way Goals Half-Way Goals PT Bone Grinder Goals Time Frame: Jan 15, 2021 Roll Left & Right (QC): 4 Sit to Lying (QC): 4 Lying-Sitting on Side/Bed(QC): 4 Sit to Stand (QC): 4 Chair/Aum-rw-Fidsw Xfer(QC): 3 Toilet Transfer (QC): 3 Car Transfer (QC): 3 Does the Patient Walk: No and Walking Goal IS indicated Walk 10 feet (QC): 3 Walk 50ft with 2 Turns (QC): 3 Walk 150 ft (QC): 3 Walking 10ft on Uneven Surface: 3 1 Step (curb) (QC): 3 4 Steps (QC): 3 12 Steps (QC): 3 Picking up an Object (QC): 3 Does the Pt use WC or Scooter?: Yes Wheel 50 feet with 2 turns (QC: 4 Type: Manual Wheel 150 feet: 4 Type: Manual PT Plan Treatment/Plan Treatment Plan: Continue Plan of Care Treatment Plan: Bed Mobility, Education, Functional Activity Tatiana, Group Therapy, Gait, Safety, Therapeutic Exercise, Transfers Treatment Duration: Feb 19, 2021 Frequency: At least 5 of 7 days/Wk (IRF) Estimated Hrs Per Day: .25 hour per day Patient and/or Family Agrees t: Yes Time/GCodes Time In: 922 Time Out: 938 Total Billed Treatment Time: 16 Total Billed Treatment 1 visit FA 16 min WARREN MUNIZ PT Dec 20, 2020 10:29
[2020-12-20] MEDS: ENOXAPARIN 60 MG/0.6 ML (LOVENOX) SYR SC SCH ×2 (11:00→22:10)
--- NOTE | 2020-12-20 12:03 | Occupational Ther Daily Note ---
OT Current Status-Daily Note Subjective Pt laying in bed, present. Pt agreeable to OT tx. Mental Status/Objective Patient Orientation: Normal For Age Attachments: Oxygen ADL-Treatment Therapy Code Descriptions/Definitions Functional [place] Measure: 0=Not Assessed/NA 4=Minimal Assistance 1=Total Assistance 5=Supervision or Setup 2=Maximal Assistance 6=Modified [place] 3=Moderate Assistance 7=Complete IndependenceSCALE: Activities may be completed with or without assistive devices. 1-Omelyiymjh-ddajvrh completes the activity by him/herself with no assistance from a helper. 5-Set-up or Clean-up Assistance-helper sets up or cleans up; patient completes activity. [place] assists only prior to or following the activity. 4-Supervision or Touching Assistance-helper provides verbal cues and/or shagufta izzy/steadying and/or contact guard assistance as patient completes activity. Assistance may be provided throughout the activity or intermittently. 3-Partial/Moderate Assistance-helper does LESS THAN HALF the effort. [place] lifts, holds or supports trunk or limbs, but provides less than half the effort. 2-Substantial/Maximal Assistance-helper does MORE THAN HALF the effort. [place] lifts or holds trunk or limbs and provides more than half the effort. 8-Rjxkqoxpr-smdhue does ALL the effort. Patient does none of the effort to complete the activity. Or, the assistance of 2 or more helpers is required for the patient to complete the activity. If activity was not attempted, code reason: 7-Patient Refused. 9-Not Applicable-not attempted and the patient did not perform the activity before the current illness, exacerbation or injury. 10-Not Attempted due to Environmental Limitations-(lack of equipment, weather restraints, etc.). 88-Not Attempted due to Medical Conditions or Safety Concerns. Oral Hygiene (QC): 7 (Pt declined as she does not have any teeth) Shower/Bathe Self (QC): 2 (Per nurse aide, max A with sponge bath) Other Treatment Pt laying in bed, sleeping, awoken and agreeable to OT Tx. Pt declines washing her face/sponge bath as she had already completed with nursing this AM. She declined oral care as she doesnt have teeth but agreeable to brushing her hair. Pt able to brush sides of hair, using BUEs for task, assist to brush back of hair with tangles. Pt declined further ADLs at this time. Post tx, pt laying in bed, call light in reach and all needs met. Education OT Patient Education: Correct positioning, Modified ADL techniques, Progress toward Goal/Update tx plan, Purpose of tx/functional activities Teaching Recipient: Patient Teaching Methods: Discussion Response to Teaching: Verbalize Understanding OT Grade [employer] Teacher Goals Mcfp Goals Time Frame: Dec 25, 2020 Eating (QC): 6 Oral Hygiene (QC): 9 Toileting Hygiene (QC): 3 Shower/Bathe Self (QC): 3 Upper Body Dressing (QC): 5 Lower Body Dressing (QC): 3 On/Off Footwear (QC): 2 Additional Goals: 1-Demonstrate ADL Tasks, 2-Verbalize Understanding, 3- ImproveStrength/[place] 1=Demonstrate adherence to instructed precautions during ADL tasks. 2=Patient will verbalize/demonstrate understanding of assistive devices/modifications for ADL. 3=Patient will improve strength/tolerance for activity to enable patient to perform ADL's. OT Education/Plan Problem List/Assessment Assessment: Decreased Activ Tolerance, Decreased UE Strength, Dependent Transfers, Impaired Bed Mobility, Impaired Funct Balance, Impaired I ADL's, Impaired Self-Care Skills Pt would benefit from skilled OT to increase her independence in basic self care Discharge Recommendations Plan/Recommendations: Continue POC Treatment Plan/Plan of Care Patient would benefit from OT for education, treatment and training to promote independence in ADL's, mobility, safety and/or upper extremity function for ADL's. Plan of Care: ADL Retraining, Functional Mobility, UE Funct Exercise/Act Treatment Duration: Dec 25, 2020 Frequency: 5 times per week Estimated Hrs Per Day: .25 hour per day (.25 to .5) Agreement: Yes Rehab Potential: Fair Time/GCodes Start Time: 11:25 Stop Time: 11:35 Total Time Billed (hr/min): 10 Billed Treatment Time 1, ADL SHANELL BARTLETT OT Dec 20, 2020 12:03
[2020-12-20] MEDS ORDERED: NS 100 ML (IVPB) BAG IV ONE (12:45)
[2020-12-20] MEDS ORDERED: CATHETER FLUSH 10 ML SYR IV PRN (12:45)
[2020-12-20] MEDS ORDERED: IOHEXOL 350 MG/ML 100 ML (OMNIPAQUE 350) VIAL IV ONE (12:45)
[2020-12-20] MEDS ORDERED: HOLD METFORMIN - RECEIVED CONTRAST 20 ML VIAL IV SCH (12:45)
[2020-12-20] MEDS ORDERED: LIDOCAINE/EPI 1%-1:200,000 (XYLOCAINE) 30 ML VIAL ONE (13:13)
[2020-12-20] MEDS ORDERED: 0.9% SODIUM CHLORIDE PF INJ 20 ML VIAL ONE (13:14)
[2020-12-20] MEDS ORDERED: HEParin (CENTRAL IV FLUSH) 500 UNIT/5 ML SYR ONE (13:15)
[2020-12-20] MEDS ORDERED: LACTATED RINGERS 1,000 ML IV PRN (13:15)
[2020-12-20] MEDS ORDERED: proPOfol 200 MG/20 ML (DIPRIVAN) VIAL IV ONE ×2 (13:25→13:26)
[2020-12-20] MEDS ORDERED: LIDOCAINE PF 2% 5 ML (XYLOCAINE) VIAL ONE (13:25)
[2020-12-20] MEDS ORDERED: MIDAZOLAM 2 MG/2 ML (VERSED) VIAL ONE ×2 (13:25→14:14)
[2020-12-20] MEDS ORDERED: KETAMINE SYRINGE 50 MG/5 ML SYRINGE ONE (13:26)
[2020-12-20] MEDS ORDERED: CLINDAMYCIN 600 MG/4ML (CLEOCIN) VIAL ONE (14:21)
[2020-12-20] MEDS ORDERED: CLINDAMYCIN 900 MG/50 ML IVPB 50 ML IV ONE (14:30)
--- NOTE | 2020-12-20 14:30 | Progress Note ---
Subjective Subjective/Events-last exam Afebrile, no acute events. She states she was able to help with her transfer today. Her states they are getting hospital bed and [facility] for home. Objective Exam Last Set of Vital Signs Vital Signs Date Time Temp Pulse Resp B/P (MAP) Pulse Ox O2 Delivery O2 Flow Rate FiO2 12/20/20 12:02 35.8 72 20 115/74 (88) 98 Nasal Cannula 3.00 Capillary Refill : Less Than 3 Seconds I&O Intake and Output 12/20/20 00:00 Intake Total 1480 ml Output Total 600 ml Balance 880 ml Intake Oral 1480 ml Output Urine Total 600 ml # Bowel Movements 1 General: Alert, No Acute Distress Lungs: Clear to Auscultation Heart: Regular Rate Extremities: No Edema Psych/Mental Status: Mood NL Results/Procedures Lab Laboratory Tests 12/19/20 15:42: Glucometer 31*L 12/19/20 15:45: Glucometer 68L 12/19/20 18:21: Glucometer 78 12/19/20 20:51: Glucometer 124H 12/20/20 11:41: Glucometer 246H 12/20/20 13:50: Urine Test NEGATIVE Microbiology 12/17/20 Urine Culture - Preliminary, Resulted Escherichia coli Assessment/Plan Assessment/Plan (1) Bilateral leg pain Status: Acute Assessment & Plan: Dopplers negative, starting to bear weight with transfers today. (2) UTI (urinary tract infection) Status: Acute Assessment & Plan: culture with E coli, sensitivity pending. On nitrofurantoin. Qualifiers: Qualified Codes: N30.01 - Acute cystitis with hematuria (3) Obesity hypoventilation syndrome Status: Chronic Assessment & Plan: On 3 lpm supplemental oxygen at baseline. (4) Hypothyroidism Status: Chronic (5) MARIA ISABEL (obstructive sleep apnea) Status: Chronic (6) Impaired ambulation Status: Acute Assessment & Plan: Reports due to pain. PT eval, unsure if she will be able to d/c home safely, but family reporting no financial way to go to [place]. SW consulted. (7) COPD (chronic obstructive pulmonary disease) Status: Chronic (8) Morbid obesity Status: Chronic (9) Debility Status: Chronic (10) Diabetes mellitus, insulin dependent (IDDM), uncontrolled Status: Chronic (11) Elevated d-dimer Status: Acute Assessment & Plan: Bilateral lower extremity doppler negative, will check CTA chest (12) DVT prophylaxis Status: Acute Assessment & Plan: Enoxaparin DEMARCO LOPEZ MD Dec 20, 2020 14:30
[2020-12-20] MEDS ORDERED: PHENYLEPHRINE 100 MCG/ML 10 ML (ANESTHESIA) SYR ONE (14:39)
[2020-12-20] MEDS ORDERED: DICL100G27 TP (14:44)
--- NOTE | 2020-12-20 15:02 | Progress Note-Post Operative ---
Post-Operative Progess Note Surgeon (s)/Respiratory Therapy Aide (s) Surgeon ALVERTO JEAN MD Respiratory Therapy Aide: none Pre-Operative Diagnosis super obesity, sleep apnea, diabetes, poor peripheral venous circulation Post-Operative Diagnosis same Procedure & Operative Findings Date of Procedure 12/20/20 Procedure Performed/Findings placement left subclavian groshong implantable catheter under flouroscopy Anesthesia Type mac with local Estimated Blood Loss Estimated blood loss (mL): minimal Specimens/Packing Specimens Removed none ALVERTO JEAN MD Dec 20, 2020 15:02
--- NOTE | 2020-12-20 15:13 | Anesthesia-General Post-Op ---
MAC Patient Condition Mental Status/LOC: Same as Preop Cardiovascular: Satisfactory Nausea/Vomiting: Absent Respiratory: Satisfactory Pain: Controlled Complications: Absent Post Op Complications Complications None Follow Up Care/Instructions Patient Instructions None needed. Anesthesiology Discharge Order Discharge Order Patient is doing well, no complaints, stable vital signs, no apparent adverse anesthesia problems. No complications reported per nursing. INGE HOUSE CRNA Dec 20, 2020 15:13
[2020-12-20] MEDS ORDERED: morphine INJ 10 MG/ML 1ML (SYR OR VIAL) IVP ONE (15:15)
[2020-12-20] MEDS ORDERED: ONDANSETRON 4 MG/2 ML (SDV) Z0FRAN IVP PRN (15:15)
--- NOTE | 2020-12-20 15:27 | Diagnostic Imaging Report ---
INDICATION: Port-A-Cath placement. COMPARISON: None. TOTAL FLUOROSCOPY TIME: 7.9 seconds. TOTAL NUMBER OF FLUOROSCOPIC IMAGES OBTAINED: 1. FINDINGS: A single frontal radiographic view of the chest was obtained during Port-A-Cath placement. The image provided shows a left subclavian approach. The central tip of the catheter projects over the SVC. Evaluation for pneumothorax is suboptimal given fluoroscopic modality. IMPRESSION: Fluoroscopic guidance was provided during Port-A-Cath placement. Dictated by: Dictated on workstation # [id number]
--- NOTE | 2020-12-20 16:11 | Diagnostic Imaging Report ---
INDICATION: Port placement. TIME OF EXAM: 3:26 PM. COMPARISON: Correlation is made with the prior chest from 12/17/2020. FINDINGS: The left chest wall port has its tip overlying the SVC. There is no pneumothorax. The lungs are clear. IMPRESSION: Satisfactory port placement. Dictated by: Dictated on workstation # [id number]
--- NOTE | 2020-12-20 16:17 | Diagnostic Imaging Report ---
PROCEDURE: CT angiography of the chest with contrast. TECHNIQUE: Multiple contiguous axial images were obtained through the chest after uneventful bolus administration of intravenous contrast. 3D reconstructed CTA MIP acquisitions were also performed. Auto Exposure Controls were utilized during the CT exam to meet ALARA standards for radiation dose reduction. INDICATION: Elevated D-dimer. COMPARISON: 11/06/2020. FINDINGS: There is good opacification of pulmonary arteries without intraluminal filling defect seen to indicate embolism. There has been mild increase in basilar atelectasis and/or pneumonitis, bilaterally. No significant pleural or pericardial fluid is identified. There is no evidence of pathologically enlarged adenopathy. There is bovine-type aortic arch. Left convexity lower thoracic spinal curvature and upper thoracic rightward convexity curvature are again noted. IMPRESSION: No CTA evidence of pulmonary embolism. There has been an increase in basilar atelectasis and/or pneumonitis without other CT evidence of acute abnormality within the thorax. Dictated by: Dictated on workstation # [id number]
[2020-12-20 18:47] LABS: BASOPHILS % (AUTO) 1 % (0-10); EOSINOPHILS # (AUTO) 0.6 10^3/uL (0.0-0.3); EOSINOPHILS % (AUTO) 10 % (0-10); HEMATOCRIT 37 % (35-52); HEMOGLOBIN 11.7 g/dL (11.5-16.0); LYMPHOCYTES # (AUTO) 2.2 10^3/uL (1.0-4.0); LYMPHOCYTES % (AUTO) 34 % (12-44); MEAN CORPUSCULAR HEMOGLOBIN 28 pg (25-34); MEAN CORPUSCULAR HGB CONC 32 g/dL (32-36); MEAN CORPUSCULAR VOLUME 89 fL (80-99); MEAN PLATELET VOLUME 9.2 fL (9.0-12.2); MONOCYTES # (AUTO) 0.5 10^3/uL (0.0-1.0); MONOCYTES % (AUTO) 8 % (0-12); NEUTROPHILS # (AUTO) 3.1 10^3/uL (1.8-7.8); NEUTROPHILS % (AUTO) 48 % (42-75); PLATELET COUNT 347 10^3/uL (130-400); WHITE BLOOD COUNT 6.6 10^3/uL (4.3-11.0)
[2020-12-20 19:00] LABS: ALBUMIN 3.6 GM/DL (3.2-4.5); POTASSIUM 3.6 MMOL/L (3.6-5.0)
[2020-12-20 19:01] LABS: CALCIUM 8.5 MG/DL (8.5-10.1)
[2020-12-20 19:03] LABS: TOTAL PROTEIN 6.9 GM/DL (6.4-8.2)
[2020-12-20 19:04] LABS: BILIRUBIN,TOTAL 0.3 MG/DL (0.1-1.0)
[2020-12-20 19:06] LABS: CREATININE SERUM 1.31 MG/DL (0.60-1.30)
--- NOTE | 2020-12-20 20:22 | OPERATIVE REPORT ---
DATE OF SERVICE: 12/20/2020 ADMITTING PHYSICIAN: Carmen Strange DO PREOPERATIVE DIAGNOSES: Super obese, sleep apnea, coronary artery disease, chronic obstructive pulmonary disease, poor peripheral venous circulation. POSTOPERATIVE DIAGNOSES: Super obese, sleep apnea, coronary artery disease, chronic obstructive pulmonary disease, poor peripheral venous circulation. PROCEDURE: Placement of left subclavian Groshong implantable catheter under fluoroscopy. SURGEON: Alverto Jean MD. ANESTHESIA: Monitored anesthesia care with local. ESTIMATED BLOOD LOSS: Minimal. FINDINGS: Catheter tip at superior vena caval - right atrial junction. DISPOSITION: The patient tolerated the procedure well. INDICATIONS: The patient is a 50-year-old female with history of super obesity with a body mass index of greater than 70. She has been hospitalized multiple times due to volume overload as well as inability to walk. She had also reported pain in her bilateral lower extremities and venous duplex ultrasounds were performed, which did not show any DVTs. She was recently hospitalized and intubated in the [facility] for approximately 10 days. She has multiple comorbidities related to her obesity including COPD, sleep apnea, history of pneumonia, coronary artery disease, hypercholesterolemia, hypertension, cardiac arrhythmia, neuropathy and dysmobility with an extremely poor peripheral venous circulation and will require Groshong implantable catheter for frequent blood draws as well as IV access and admissions. DESCRIPTION OF PROCEDURE: The patient was brought to the operating room, laid supine on the table. After adequate IV pain and sedative medications and monitored anesthesia care, the chest and neck were prepped and draped in standard surgical fashion. A 1% lidocaine with epinephrine was used to anesthetize the left subclavian region. Left subclavian vein was then cannulated with drawing of venous blood. The guidewire was inserted without any resistance under fluoroscopy. The guidewire was removed and a skin incision made using a 15 blade. Dilator and sheath were then introduced over the guidewire. The guidewire and dilator were then removed and the Groshong implantable catheter was placed through the sheath until the tip was at the superior vena cava - right atrial junction. The sheath was then removed. The inner wire within the catheter was then removed. The catheter cut down to size and port placed onto the catheter. The chest reservoir was then created between the subcutaneous fat and anterior pectoralis fascia using blunt dissection as well as electrocautery with visualization of good hemostasis. The port was then placed into the reservoir and sutured to the anterior pectoralis fascia using interrupted 3-0 Vicryl sutures. Subcutaneous tissue was then reapproximated using 3-0 Vicryl interrupted sutures. Skin was closed using 4-0 Monocryl running subcuticular suture. Wound was then cleaned and covered with Dermabond. The port was accessed and this was covered with gauze followed by Op-Site. The patient tolerated the procedure well. We will get a post-procedure chest x-ray. Once confirmation of placement, the port may be used at any time. Job ID: [id number] DocumentID: [id number] Dictated Date: 12/20/2020 15:08:35 Director Of Archives Date: 12/20/2020 20:21:27 Dictated By: ALVERTO JEAN MD
[2020-12-20] MEDS: BACLOFEN 10 MG (LIORESAL) TAB PO SCH (21:15)
[2020-12-20] MEDS: PRAMIPEXOLE 0.5 MG TAB (MIRAPEX) PO SCH (21:16)
[2020-12-20] MEDS: fentaNYL INJ 100 MCG/2 ML AMP IVP PRN (22:36)
[2020-12-21 00:04] VITALS: BP 133/82
[2020-12-21] MEDS: fentaNYL INJ 100 MCG/2 ML AMP IVP PRN ×3 (01:10→14:21)
[2020-12-21 05:05] LABS: HEMATOCRIT 35 % (35-52); HEMOGLOBIN 10.9 g/dL (11.5-16.0); MEAN CORPUSCULAR HEMOGLOBIN 28 pg (25-34); MEAN CORPUSCULAR HGB CONC 31 g/dL (32-36); MEAN CORPUSCULAR VOLUME 89 fL (80-99); MEAN PLATELET VOLUME 9.5 fL (9.0-12.2); PLATELET COUNT 315 10^3/uL (130-400); WHITE BLOOD COUNT 7.5 10^3/uL (4.3-11.0)
[2020-12-21 05:18] LABS: BUN/CREATININE RATIO 38; CALCIUM 8.7 MG/DL (8.5-10.1); CARBON DIOXIDE 30 MMOL/L (21-32); CHLORIDE 95 MMOL/L (98-107); CREATININE SERUM 0.94 MG/DL (0.60-1.30); GFR ESTIMATED > 60; GLUCOSE 269 MG/DL (70-105); POTASSIUM 3.8 MMOL/L (3.6-5.0); SODIUM 137 MMOL/L (135-145)
[2020-12-21] MEDS: inSUlin ASPART (NovoLOG) 1 UNIT/0.01 ML (CHARGE PER UNIT) SC SCH ×2 (05:26→11:27)
[2020-12-21 08:00] VITALS: BP 118/72
--- NOTE | 2020-12-21 09:42 | Physical Therapy Daily Note ---
PT Daily Note-Current Subjective Patient and spouse agree to family training to ensure safe return to home. Both agree. Mental Status Patient Orientation: Normal For Age Attachments: Oxygen, Alcantar Catheter Transfers SCALE: Activities may be completed with or without assistive devices. 4-Baxzafnxif-kcbvqeg completes the activity by him/herself with no assistance from a helper. 5-Set-up or Clean-up Assistance-helper sets up or cleans up; patient completes activity. [place] assists only prior to or following the activity. 4-Supervision or Touching Assistance-helper provides verbal cues and/or touching/steadying and/or contact guard assistance as patient completes activity. Assistance may be provided throughout the activity or intermittently. 3-Partial/Moderate Assistance-helper does LESS THAN HALF the effort. [place] lifts, holds or supports trunk or limbs, but provides less than half the effort. 2-Substantial/Maximal Assistance-helper does MORE THAN HALF the effort. [place] lifts or holds trunk or limbs and provides more than half the effort. 8-Avwtkeehr-ukzjzp does ALL the effort. Patient does none of the effort to complete the activity. Or, the assistance of 2 or more helpers is required for the patient to complete the activity. If activity was not attempted, code reason: 7-Patient Refused. 9-Not Applicable-not attempted and the patient did not perform the activity before the current illness, exacerbation or injury. 10-Not Attempted due to Environmental Limitations-(lack of equipment, weather restraints, etc.). 88-Not Attempted due to Medical Conditions or Safety Concerns. Sit to Lying (QC): 2 Lying to Sitting/Side of Bed(Q: 2 Sit to Stand (QC): 3 spouse performed all bed mobility and transfers with PT SBA Weight Bearing Right Lower Extremity: Right Weight Bearing/Tolerated Left Lower Extremity: Left Weight Bearing/Tolerated Gait Training Does the Patient Walk?: Yes Distance: 10' x 2 Walk 10 feet (QC): 4 Gait Assistive Device: FWW slow, shuffle gait sequence Assessment Patient did cease treatment and returned to bed with spouse assisting. SW notified of progression. PT Short Term Goals Short Term Goals Time Frame: Jan 01, 2021 Roll Left & Right: 3 Sit to lyin Lying to sitting on side of be: 3 Sit to stand: 3 Chair/jxj-zz-chvsg transfer: 2 Toilet transfer: 2 Car transfer: 2 Walk 10 feet: 2 Walk 50 feet with two turns: 2 Walk 150 feet: 2 Walking 10ft on uneven surface: 1 1 step (curb): 1 4 steps: 1 12 steps: 1 Picking up objects: 1 Does pt use a wc or scooter: Yes Wheel 50ft w/2 turns: 3 Wheel 150 feet: 3 Type: Manual PT Long-Term Goals Long-Term Goals PT Desktop Operator Goals Time Frame: Jan 15, 2021 Roll Left & Right (QC): 4 Sit to Lying (QC): 4 Lying-Sitting on Side/Bed(QC): 4 Sit to Stand (QC): 4 Chair/Gdj-cr-Btxme Xfer(QC): 3 Toilet Transfer (QC): 3 Car Transfer (QC): 3 Does the Patient Walk: No and Walking Goal IS indicated Walk 10 feet (QC): 3 Walk 50ft with 2 Turns (QC): 3 Walk 150 ft (QC): 3 Walking 10ft on Uneven Surface: 3 1 Step (curb) (QC): 3 4 Steps (QC): 3 12 Steps (QC): 3 Picking up an Object (QC): 3 Does the Pt use WC or Scooter?: Yes Wheel 50 feet with 2 turns (QC: 4 Type: Manual Wheel 150 feet: 4 Type: Manual PT Plan Treatment/Plan Treatment Plan: Continue Plan of Care Treatment Plan: Bed Mobility, Education, Functional Activity Tatiana, Group Therapy, Gait, Safety, Therapeutic Exercise, Transfers Treatment Duration: Feb 19, 2021 Frequency: At least 5 of 7 days/Wk (IRF) Estimated Hrs Per Day: .25 hour per day Patient and/or Family Agrees t: Yes Time/GCodes Time In: 855 Time Out: 904 Total Billed Treatment Time: 9 Total Billed Treatment 1 visit FA 9 min WARREN MUNIZ PT Dec 21, 2020 09:42
[2020-12-21] MEDS: NITROFURANTOIN 100 MG (MACROBID) CAPSULE PO SCH (09:48)
[2020-12-21] MEDS: LOSARTAN 100 MG (COZAAR) TABLET PO SCH (09:48)
[2020-12-21] MEDS: meTOprolol TARTRATE 50 MG (LOPRESSOR) TAB PO SCH (09:48)
[2020-12-21] MEDS: PANTOPRAZOLE 40 MG (PROTONIX) TAB PO SCH (09:48)
[2020-12-21] MEDS: ASPIRIN E.C. 81 MG (ECOTRIN) TAB PO SCH (09:48)
[2020-12-21] MEDS: KCL 20 MEQ TAB (K-DUR) PO SCH (09:48)
[2020-12-21] MEDS: PREGABALIN 100 MG (LYRICA) CAPSULE PO SCH (09:48)
[2020-12-21] MEDS: DIVALPROEX EXT RELEASE 500 MG (DEPAKOTE ER) TAB PO SCH (09:48)
[2020-12-21] MEDS: LEVOTHYROXINE 100 MCG (LEVOTHROID) TAB PO SCH (09:49)
[2020-12-21] MEDS: NAPROXEN 250 MG (NAPROSYN) TABLET PO SCH (09:49)
[2020-12-21] MEDS: inSUlin ASPART (NovoLOG) 1 UNIT/0.01 ML (CHARGE PER UNIT) SQ SCH ×2 (09:49→14:21)
[2020-12-21] MEDS: ENOXAPARIN 60 MG/0.6 ML (LOVENOX) SYR SC SCH (11:27)
[2020-12-21] MEDS ORDERED: NITR100C10 PO (11:50)
--- NOTE | 2020-12-21 11:53 | D/C HH Face to Face Order ---
D/C Face to Face Orders Instructions for Patient [facility], Patient Instructions/FollowUp: Follow up with Liseth Zambrano- she will do a home visit 12/22 at 1 pm. Physician to follow Patient: Liseth Zambrano Discharge Diet for Home: ADA Diet Patient Data-Allergies,Ht & Wt Patient Allergies: Coded Allergies: [place] And Derivatives (Verified Allergy, Intermediate, 12/19/20) MAKES TONGUE BREAK OUT duloxetine (Verified Allergy, Unknown, 03/17/20) tramadol (Verified Allergy, Unknown, 03/17/20) butorphanol (Unverified Adverse Reaction, Severe, 08/04/18) HALLUCINATIONS Penicillins (Unverified Adverse Reaction, Unknown, NAUSEA, 08/04/18) Height (Feet): 5 Height (Inches): 0.00 Weight (Pounds): 389 Weight (Ounces): 0.4 Home Health Need/Face to Face Date of Face to Face: Dec 21, 2020 Clinical Findings: Generalized weakness and fatigue, Instability, Muscle weakness I have seen Pt uxku-ja-ribl: Yes Discharged To: Home Diagnosis/Conditions: Morbid obesity Debility Urinary tract infection Problems/Diagnosis/Condition: (1) Migraine (2) Obesity hypoventilation syndrome (3) Hypothyroidism (4) MARIA ISABEL (obstructive sleep apnea) (5) Oxygen dependent (6) Impaired ambulation (7) COPD (chronic obstructive pulmonary disease) (8) Debility (9) Diabetes mellitus, insulin dependent (IDDM), uncontrolled Patient is Homebound due to: Muscle weakness Homebound Status Due to the above stated illness, injury or surgical procedure (medical cond ition or diagnosis) and associated clinical findings, the patient is homebound because of his/her inability to leave home except with aid of a supportive device and/or person AND leaving the home requires a considerable and taxing effort or is medically contraindicated. Pt req the following assistanc: Aid of another person, Wheelchair Home Health Nursing Orders Home Health Services Order: Nursing Services, [employer]-Evaluate & Treat, Physical Therapy-Evaluate & Treat Certify Stmt I certify that this patient is under my care and that I, a nurse practitioner or a physician; a physical therapist assistant working with me, had a face to face encounter that - meets the physician face to face encounter requirements with this patient as dated. DEMARCO LOPEZ MD Dec 21, 2020 11:53
--- NOTE | 2020-12-21 16:19 | Discharge Summary ---
Discharge Summary Hospital Course Problems/Diagnosis: (1) Bilateral leg pain Status: Acute Assessment & Plan: Dopplers negative, starting to bear weight with transfers today. (2) UTI (urinary tract infection) Status: Acute Assessment & Plan: culture with E coli. On nitrofurantoin. Qualifiers: Qualified Codes: N30.01 - Acute cystitis with hematuria (3) Obesity hypoventilation syndrome Status: Chronic Assessment & Plan: On 3 lpm supplemental oxygen at baseline. (4) Hypothyroidism Status: Chronic (5) MARIA ISABEL (obstructive sleep apnea) Status: Chronic (6) Impaired ambulation Status: Acute Assessment & Plan: Reports due to pain. PT eval, unsure if she will be able to d/c home safely, but family reporting no financial way to go to [place]. SW consulted. Family desired for her to go home regardless, home health set up. (7) COPD (chronic obstructive pulmonary disease) Status: Chronic (8) Morbid obesity Status: Chronic (9) Debility Status: Chronic (10) Diabetes mellitus, insulin dependent (IDDM), uncontrolled Status: Chronic (11) Elevated d-dimer Status: Acute Assessment & Plan: Bilateral lower extremity doppler negative, CTA chest negative for PE (12) Port-A-Cath in place Status: Acute Assessment & Plan: Poor access, port placed on 12/20. Hospital Course Date of Admission: Dec 17, 2020 at 23:20 Admission Diagnosis : Family Physician/Provider: ToshiaLocal Physician Date of Discharge: 12/21/20 Discharge Diagnosis: see problem list Hospital Course: See problem list Labs and Pending Lab Test: Laboratory Tests 12/20/20 16:25: Glucometer 226H 12/20/20 20:47: Glucometer 240H 12/21/20 04:50: White Blood Count 7.5, Red Blood Count 3.93, Hemoglobin 10.9L, Hematocrit 35, Mean Corpuscular Volume 89, Mean Corpuscular Hemoglobin 28, Mean Corpuscular Hemoglobin Concent 31L, Red Cell Distribution Width 16.3H, Platelet Count 315, Mean Platelet Volume 9.5, Sodium Level 137, Potassium Level 3.8, Chloride Level 95L, Carbon Dioxide Level 30, Anion Gap 12, Blood Urea Nitrogen 36H, Creatinine 0.94, Estimat Glomerular Filtration Rate > 60, BUN/Creatinine Ratio 38, Glucose Level 269H, Calcium Level 8.7 12/21/20 11:14: Glucometer 211H Microbiology 12/20/20 MRSA Screen - Final, Complete MRSA not isolated 12/17/20 Urine Culture - Final, Complete Escherichia coli Home Meds Active Nitrofurantoin [place]-Mcr 100 mg (Nitrofurantoin Monohyd/M-Cryst) 100 Mg Capsule 100 Mg PO BID 4 Days Reported Diclofenac Sodium 100 Gm Gel..gram. 100 Gm TP QID PRN Vesicare (Solifenacin Succinate) 5 Mg Tablet 5 Mg PO DAILY LAST FILLED 05/08/21 #30 30 DAY SUPPLY Ondansetron Odt (Ondansetron) 4 Mg Tab.rapdis 4 Mg SL Q8H PRN Insulin Aspart 100 Unit/1 Ml Vial Unit SQ AC USES INSULIN PUMP Potassium Chloride 20 Meq Tablet.er 20 Mcg PO DAILY Pregabalin 200 Mg Capsule 200 Mg PO BID Aspirin EC (Aspirin) 81 Mg Tablet.dr 81 Mg PO DAILY Pantoprazole Sodium 40 Mg Tablet.dr 40 Mg PO DAILY Furosemide 40 Mg Tablet 40 Mg PO TID Losartan Potassium 100 Mg Tablet 100 Mg PO DAILY Hydrochlorothiazide 25 Mg Tablet 25 Mg PO DAILY Baclofen 10 Mg Tablet 10 Mg PO HS Pramipexole Dihydrochloride (Pramipexole Di-HCl) 1 Mg Tablet 1 Mg PO HS Naproxen 500 Mg Tablet 500 Mg PO BID Levothyroxine Sodium 200 Mcg Tablet 200 Mcg PO DAILY Sumatriptan Succinate 100 Mg Tablet 100 Mg PO UD PRN Metoprolol Tartrate 100 Mg Tablet 100 Mg PO BID Atorvastatin Calcium 40 Mg Tablet 40 Mg PO HS Proventil Hfa (Albuterol Sulfate) 6.7 Gm Hfa.aer.ad 2 Puff INH Q6H PRN Divalproex Sodium ER (Divalproex Sodium) 500 Mg Tab.er.24h 500 Mg PO BID Albuterol Sulfate 2.5 Mg/3 Ml Vial.neb 2.5 Mg INH TID PRN Assessment/Pt DC Instructions Follow up with home visit as scheduled. Discharge Physical Examination Allergies: Coded Allergies: [place] And Derivatives (Verified Allergy, Intermediate, 12/19/20) MAKES TONGUE BREAK OUT duloxetine (Verified Allergy, Unknown, 03/17/20) tramadol (Verified Allergy, Unknown, 03/17/20) butorphanol (Unverified Adverse Reaction, Severe, 08/04/18) HALLUCINATIONS Penicillins (Unverified Adverse Reaction, Unknown, NAUSEA, 08/04/18) General Appearance: No Apparent Distress Respiratory: Lungs Clear Cardiovascular: Regular Rate, Rhythm, No Murmur Neurologic/Psychiatric: Alert DEMARCO LOPEZ MD Dec 21, 2020 16:18
--- NOTE | 2020-12-23 14:00 | Physician Query Clarification ---
PQ-Further Specificity Admission/Discharge Admission Date: Dec 17, 2020 at 23:20 Discharge Date: Dec 21, 2020 at 13:00 Dr. Coker, The medical record reflects the following clinical scenario: History/Risk Factors: Super Morbid obesity, greyson lower leg pain, DM w/neuropathy/hyperglycemia Clinical Findings: inability to walk, pedal edema, Greyson venous doppler - No DVT Treatment: supportive treatment, Naproxen, Hydrochlorothiazide, sodium restriction Question: Can you further specify the etiology of the bilateral leg pain and poor peripheral venous circulation per the clinical indicators above? Please document a response in the Progress Notes or Discharge Summary. 1. volume overload 2. chronic venous insufficiency 3. Other, with explanation of the clinical findings. 4. Clinically undetermined, no explanation for the clinical findings. PHYSICIAN RESPONSE Can you specify per above: 2 Please remember a lack of response to the above will prompt a phone page by CDI/Coding staff. In responding to this query, please exercise your independent professional judgment. The purpose of this communication is to more accurately reflect the complexity of your patients condition. The fact that a question is asked does not imply that any particular answer is desired or expected. Thank you for your timely response to this clarification. Requestors name: Kiah THIS PHYSICIAN QUERY FORM IS A PERMANENT PART OF THE MEDICAL RECORD KIAH SY Dec 23, 2020 14:00 DEMARCO COKER MD Dec 23, 2020 22:59
== END 2020-12-21 13:00 | disposition home health service (06) | DRG 300 ==
LOC: EDUNIT# 21:32 → ER 21:33 → 4TH 23:20
PROVIDERS: ADMIT Internal Medicine; ATTEND Family Medicine
PROC: 02HV33Z Insertion of Infusion Device into Superior Vena Cava, Percutaneous Approach (ICD-10-PCS; principal; 2020-12-20 14:05)
DX: I87.2 Venous insufficiency (chronic) (peripheral) (principal); Z68.45 Body mass index [BMI] 70 or greater, adult; E66.2 Morbid (severe) obesity with alveolar hypoventilation; N39.0 Urinary tract infection, site not specified; J96.10 Chronic respiratory failure, unspecified whether with hypoxia or hypercapnia; M79.662 Pain in left lower leg; M79.661 Pain in right lower leg; B96.20 Unspecified Escherichia coli [E. coli] as the cause of diseases classified elsewhere; J44.9 Chronic obstructive pulmonary disease, unspecified; Z91.19 Patient's noncompliance with other medical treatment and regimen; I11.0 Hypertensive heart disease with heart failure; I50.9 Heart failure, unspecified; I25.10 Atherosclerotic heart disease of native coronary artery without angina pectoris; E78.00 Pure hypercholesterolemia, unspecified; E11.40 Type 2 diabetes mellitus with diabetic neuropathy, unspecified; E11.65 Type 2 diabetes mellitus with hyperglycemia; G40.909 Epilepsy, unspecified, not intractable, without status epilepticus; K90.0 Celiac disease; M79.7 Fibromyalgia; E03.9 Hypothyroidism, unspecified; F41.9 Anxiety disorder, unspecified; F32.9 Major depressive disorder, single episode, unspecified; I25.2 Old myocardial infarction; Z87.891 Personal history of nicotine dependence; Z79.82 Long term (current) use of aspirin; Z79.4 Long term (current) use of insulin; Z88.0 Allergy status to penicillin; Z88.8 Allergy status to other drugs, medicaments and biological substances
CPT/HCPCS: 36415; 71045; 71275; 76000; 80048; 80053; 80164; 81000; 82550; 82553; 82947; 83735; 83874; 83880; 84439; 84443; 84703; 85025; 85027; 85379; 85610; 85730; 87077; 87081; 87088; 87184; 93005; 93041; 93970; 94760; 96372

== ENCOUNTER 2021-01-14 14:01 | Emergency (ER) | payer MEDICAID ==
[~2021-01-14] VITALS: Ht 152.4 cm; Wt 177.0 kg
[~2021-01-14 14:01] MED LIST changes: +INSU100V42 SQ; +NF-SOLIF5T PO; +NITR100C10 PO; +ONDA4TAB11 SL; +POTA-51 PO; +[UNRECOGNIZED DRUG - CODE] TP
--- NOTE | 2021-01-14 14:29 | ED General ---
General Chief Complaint: General Problems/Pain Stated Complaint: WEAKNESS Nursing Triage Note: Pt to ED via EMS for fatigue. Pt reports feeling lethargic, cold and a headache. Source of Information: Patient Exam Limitations: No Limitations (VERA RUIZ MD) History of Present Illness Date Seen by Provider: Jan 14, 2021 Time Seen by Provider: 14:00 Initial Comments Patient is a 50-year-old female who presents to the emergency department by EMS today after her called the ambulance for her excessive somnolence and lethargy. Patient states that she went to bed at about 2 or 3:00 in the morning last night and her woke her up at about 11 this morning. She states she is just very tired and she thinks her carbon dioxide level is high again. She does not have a CPAP because "they messed up on my sleep study" and they did not prescribe her 1. Patient is chronically on 2 L of oxygen per nasal cannula. Off oxygen the patient's sats were 9091%. On oxygen she is 98%. Patient is a diabetic with a normal blood sugar per EMS. No recent fevers. She has had a headache today. She is Covid vaccinated her shots were in either August or September or September and October the patient cannot remember. She did get the moderna vaccination. She denies any burning with urination but states that she was incontinent in the bed last night. No nausea vomiting or diarrhea. No other complaints of illness or injury. All other review of systems reviewed and negative except as stated above Timing/Duration: 4-6 Hours Severity: Moderate Associated Systoms: Headaches, Malaise (VERA RUIZ MD) Allergies and Home Medications Allergies Coded Allergies: [place] And Derivatives (Verified Allergy, Intermediate, 12/19/20) MAKES TONGUE BREAK OUT duloxetine (Verified Allergy, Unknown, 03/17/20) tramadol (Verified Allergy, Unknown, 03/17/20) butorphanol (Unverified Adverse Reaction, Severe, 08/04/18) HALLUCINATIONS Penicillins (Unverified Adverse Reaction, Unknown, NAUSEA, 08/04/18) Home Medications Albuterol Sulfate 2.5 Mg/3 Ml Vial.neb, 2.5 MG INH TID PRN for SHORTNESS OF BREATH, (Reported) Albuterol Sulfate 6.7 Gm Hfa.aer.ad, 2 PUFF INH Q6H PRN for SHORTNESS OF BREATH, (Reported) Aspirin 81 Mg Tablet.dr, 81 MG PO DAILY, (Reported) Atorvastatin Calcium 40 Mg Tablet, 40 MG PO HS, (Reported) Baclofen 10 Mg Tablet, 10 MG PO HS, (Reported) Diclofenac Sodium 100 Gm Gel..gram., 100 GM TP QID PRN for PAIN-MILD (1-4), (Reported) Divalproex Sodium 500 Mg Tab.er.24h, 500 MG PO BID, (Reported) Furosemide 40 Mg Tablet, 40 MG PO TID, (Reported) Hydrochlorothiazide 25 Mg Tablet, 25 MG PO DAILY, (Reported) Insulin Aspart 100 Unit/1 Ml Vial, UNIT SQ AC, (Reported) USES INSULIN PUMP Levothyroxine Sodium 200 Mcg Tablet, 200 MCG PO DAILY, (Reported) Losartan Potassium 100 Mg Tablet, 100 MG PO DAILY, (Reported) Metoprolol Tartrate 100 Mg Tablet, 100 MG PO BID, (Reported) Naproxen 500 Mg Tablet, 500 MG PO BID, (Reported) Nitrofurantoin Monohyd/M-Cryst 100 Mg Capsule, 100 MG PO BID Prescribed by: DEMARCO LOPEZ on 12/21/20 1150 Ondansetron 4 Mg Tab.rapdis, 4 MG SL Q8H PRN for NAUSEA-1ST LINE, (Reported) Pantoprazole Sodium 40 Mg Tablet.dr, 40 MG PO DAILY, (Reported) Potassium Chloride 20 Meq Tablet.er, 20 MCG PO DAILY, (Reported) Pramipexole Di-HCl 1 Mg Tablet, 1 MG PO HS, (Reported) Pregabalin 200 Mg Capsule, 200 MG PO BID, (Reported) Solifenacin Succinate 5 Mg Tablet, 5 MG PO DAILY, (Reported) LAST FILLED 05/08/21 #30 30 DAY SUPPLY Sumatriptan Succinate 100 Mg Tablet, 100 MG PO UD PRN for MIGRAINE, (Reported) Patient Home Medication List Home Medication List Reviewed: Yes (VERA RUIZ MD) Review of Systems Review of Systems Constitutional: see HPI Respiratory: no symptoms reported Cardiovascular: no symptoms reported Gastrointestinal: no symptoms reported Genitourinary: no symptoms reported Musculoskeletal: no symptoms reported Skin: no symptoms reported Psychiatric/Neurological: Other ("sleepy") (VERA RUIZ MD) Past Muphdsi-Thhzjq-Enwrgy Hx Immunizations Up To Date Tetanus Booster (TDap): Unknown PED Vaccines UTD: Yes Second COVID19 Vaccination Mamadou: 10/20 COVID19 Vaccine Java Lead: sami (VERA RUIZ MD) Seasonal Allergies Seasonal Allergies: No (VERA RUIZ MD) Past Medical History Surgeries: Yes Cardiac, Section, Gallbladder, Orthopedic, Tubal Ligation Respiratory: Yes (RESTRICTIVE LUNG DZ;LEFT CHEST DEFORMITY;CHF;CHRONIC RESP FAILURE-3L/NC) Asthma, Pneumonia, Chronic Bronchitis, Sleep Apnea, COPD Currently Using CPAP: No Currently Using BIPAP: No Cardiac: Yes (CHF; CARDIAC ABLATION FOR SVT ) Coronary Artery Disease, Heart Attack, High Cholesterol, Hypertension, Irregular Heartbeat Neurological: Yes Headaches /Migraines, Neuropathy, Seizure Disorder, Stroke Reproductive Disorders: No JANITOR History: Tubal Ligation Genitourinary: Yes UTI-Chronic Gastrointestinal: Yes (Reports celiac disease) Ulcer, Gall Bladder Disease Musculoskeletal: Yes (BACK SURGERY FOR SCOLIOSIS; LEFT FOOT SURGERY) Fibromyalgia, Scoliosis, Chronic Back Pain Endocrine: Yes (SUPER MORBID OBESITY--> 500LBS) Diabetes, Insulin dep, Hypothyroidsim HEENT: Yes (EDENTULOUS) Cancer: No Psychosocial: Yes Anxiety, Depression Integumentary: No Blood Disorders: No (VERA RUIZ MD) Family Medical History SOCIAL HISTORY: -ETOH--OCCASIONAL USE -DRUGS--HX OF IV METHAMPHETAMINE USE -SMOKED 1/2 PPD FROM AGE 19 TO 23 PAST SURGICAL HISTORY: -BACK SURGERY FOR SCOLIOSIS AGE 15 -LEFT FOOT RECONSTRUCTION BECAUSE OF PROBLEM WITH ARCH OF FOOT - X 2 -EGD -CARDIAC ABLATION FOR SVT -CHOLECYSTECTOMY -BILATERAL TUBAL LIGATION ADDITIONAL PAST MEDICAL HISTORY: -CLAIMS SHE HAD A "STRESS HEART ATTACK" AT AGE 27--NO CARDIAC CATH, BUT HAD STRESS TEST AND ECHOCARDIOGRAM -SEIZURES DX AGE 33 -HAD POSSIBLE STROKE WITH ONE SEIZURE-HAD LEFT SIDE PARALYSIS FOR 2 WEEKS, COMPLETELY RESOLVED -PERIPHERAL NEUROPATHY -CHRONIC LEFT FOOT NUMBNESS SINCE LEFT FOOT SURGERY -IMPAIRED MOBILITY--HAS USED WALKER, WHEELCHAIR AND MOTORIZED WHEELCHAIR PAST SURCI (VERA RUIZ MD) Physical Exam Vital Signs Vital Signs - First Documented 01/14/21 14:01 Temp 36.2 Pulse 105 Resp 12 B/P (MAP) 147/93 (111) Pulse Ox 98 O2 Delivery Nasal Cannula O2 Flow Rate 2.00 (TAMEKA,LEATHA J) Vital Signs Capillary Refill : Less Than 3 Seconds (VERA RUIZ MD) Height, Weight, BMI Height: 5'0.00" Weight: 389lbs. 0.4oz. 176.365707ja; 76.00 BMI Method:Stated General Appearance: No Apparent Distress, WD/WN Eyes: Bilateral Eye Normal Inspection, Bilateral Eye PERRL HEENT: PERRL/EOMI Respiratory: Lungs Clear, Normal Breath Sounds, No Accessory Muscle Use, No Respiratory Distress Cardiovascular: Regular Rate, Rhythm Gastrointestinal: Non Tender, Soft Extremity: Other (Significant lymphedema bilateral lower extremities) Neurologic/Psychiatric: Alert, Oriented x3, No Motor/Sensory Deficits, Normal Mood/Affect Skin: Normal Color, Warm/Dry (VERA RUIZ MD) Progress/Results/Core Measures Suspected Sepsis SIRS Temperature: Pulse: 105 Respiratory Rate: 12 Blood Pressure 147 /93 Mean: 111 (VERA RUIZ MD) Results/Orders Lab Results Laboratory Tests Test 01/14/21 14:05 01/14/21 14:54 01/14/21 18:06 Range/Units SARS-CoV-2 RNA (RT-PCR) Not Detected Not Detecte Blood Gas Puncture Site LT BRACH L RAD Blood Gas Patient Temperature 36.2 36.2 Arterial Blood pH 7.37 7.38 7.37-7.43 Arterial Blood Partial Pressure CO2 57 H 55 H 35-45 MMHG Arterial Blood Partial Pressure O2 81 94 H 79-93 MMHG Arterial Blood HCO3 33 H 33 H 23-27 MMOL/L Arterial Blood Total CO2 34.3 H 34.4 H 21.0-31.0 MMOL/L Arterial Blood Oxygen Saturation 97 98 94-100 % Arterial Blood Base Excess 7.1 H 7.4 H -2.5-2.5 MMOL/L Jaime Test YES-POS NA Blood Gas Ventilator Setting NO NO Blood Gas Inspired Oxygen 2 L 30% (LEATHA ENGLISH) Vital Signs/I&O 01/14/21 01/14/21 14:01 16:07 Temp 36.2 Pulse 105 97 Resp 12 15 B/P (MAP) 147/93 (111) Pulse Ox 98 99 O2 Delivery Nasal Cannula O2 Flow Rate 2.00 30.00 (LEATHA ENGLISH) Vital Signs/I&O Capillary Refill : Less Than 3 Seconds (VERA RUIZ MD) Blood Pressure Mean: 111 Progress Note : Time: 14:17 Progress Note Patient does arouse to voice. She is alert and oriented but does seem a little bit sleepy. No clinical or objective findings to warrant a bunch of blood work at this time. We will check an ABG and check her PCO2. She looks overall well. (VERA RUIZ MD) Progress Note : Time: 18:03 Progress Note Assumed care of the patient at shift change. Dr. Ruiz and Dr. Ayala are working together to put the patient on BiPAP and see how she improves. A repeat ABG has been obtained and we are awaiting results. (LEATHA ENGLISH) Departure Impression Primary Impression: Chronic respiratory failure Qualified Codes: J96.10 - Chronic respiratory failure, unspecified whether with hypoxia or hypercapnia Disposition: HOME, SELF-CARE Condition: Stable Departure-Patient Inst. Decision time for Depature: 18:35 (LEATHA ENGLISH) Referrals: [facility],LOCAL PHYSICIAN (PCP) Primary Care Physician Patient Instructions: Obstructive Sleep Apnea, Adult (DC) Add. Discharge Instructions: Continue working on getting her BiPAP. Return to the ER if she has worsening respiratory status. All discharge instructions reviewed with patient and/or family. Voiced understanding. VERA RUIZ MD Jan 14, 2021 14:29 LEATHA ENGLISH Jan 14, 2021 18:04
[2021-01-14 15:08] LABS: ABG BASE EXCESS 7.1 MMOL/L (-2.5-2.5); ABG OXYGEN SATURATION 97 % (94-100); ABG PCO2 57 MMHG (35-45); ABG PH 7.37 (7.37-7.43); ABG PO2 81 MMHG (79-93); ABG TCO2 34.3 MMOL/L (21.0-31.0); ALLENS TEST YES-POS; INSPIRED O2 2 L; PATIENT TEMP 36.2; VENTILATOR NO
[2021-01-14 16:07] VITALS: BP_SYST 147
[2021-01-14 18:11] LABS: ABG BASE EXCESS 7.4 MMOL/L (-2.5-2.5); ABG OXYGEN SATURATION 98 % (94-100); ABG PCO2 55 MMHG (35-45); ABG PH 7.38 (7.37-7.43); ABG PO2 94 MMHG (79-93); ABG TCO2 34.4 MMOL/L (21.0-31.0)
[2021-01-14 18:13] LABS: INSPIRED O2 30%; PATIENT TEMP 36.2; VENTILATOR NO
[2021-01-14 19:23] VITALS: BP 147/93
[2021-01-14 21:28] LABS: BILIRUBIN,URINE NEGATIVE (NEGATIVE); GLUCOSE, URINE (UA) NEGATIVE (NEGATIVE); KETONES,URINE NEGATIVE (NEGATIVE); LEUKOCYTE ESTERASE ,URINE NEGATIVE (NEGATIVE); NITRITE,URINE POSITIVE (NEGATIVE); PROTEIN,URINE NEGATIVE (NEGATIVE)
[2021-01-14 21:31] LABS: CLARITY,URINE SL CLOUDY; COLOR,URINE YELLOW
[2021-01-14 21:32] LABS: BACTERIA,URINE LARGE /HPF; WBC,URINE RARE /HPF
[2021-01-14 21:33] LABS: SQUAMOUS EPITHELIAL CELL,UR RARE /HPF
== END 2021-01-14 19:07 | disposition home or self-care (01) ==
LOC: EDUNIT# 14:01 → ER 14:02
DX: J96.10 Chronic respiratory failure, unspecified whether with hypoxia or hypercapnia (principal); J44.9 Chronic obstructive pulmonary disease, unspecified; E66.01 Morbid (severe) obesity due to excess calories; E78.00 Pure hypercholesterolemia, unspecified; I11.0 Hypertensive heart disease with heart failure; I50.9 Heart failure, unspecified; I25.2 Old myocardial infarction; I25.10 Atherosclerotic heart disease of native coronary artery without angina pectoris; G43.909 Migraine, unspecified, not intractable, without status migrainosus; E03.9 Hypothyroidism, unspecified; E11.9 Type 2 diabetes mellitus without complications; Z68.45 Body mass index [BMI] 70 or greater, adult; Z86.73 Personal history of transient ischemic attack (TIA), and cerebral infarction without residual deficits; Z20.822 Contact with and (suspected) exposure to COVID-19; Z79.82 Long term (current) use of aspirin; Z79.899 Other long term (current) drug therapy; Z79.4 Long term (current) use of insulin; Z79.890 Hormone replacement therapy
CPT/HCPCS: 81000; 82805; 82947; 87077; 87088; 87186; 87636

== ENCOUNTER 2021-01-21 11:46 | Emergency (ER) | payer MEDICAID ==
[~2021-01-21] VITALS: Ht 152.4 cm; Wt 177.0 kg
[2021-01-21 12:23] VITALS: BP 131/90
[2021-01-21 12:35] LABS: BASOPHILS % (AUTO) 1 % (0-10); EOSINOPHILS # (AUTO) 0.2 10^3/uL (0.0-0.3); EOSINOPHILS % (AUTO) 3 % (0-10); HEMATOCRIT 37 % (35-52); HEMOGLOBIN 11.1 g/dL (11.5-16.0); LYMPHOCYTES # (AUTO) 1.5 10^3/uL (1.0-4.0); LYMPHOCYTES % (AUTO) 24 % (12-44); MEAN CORPUSCULAR HEMOGLOBIN 29 pg (25-34); MEAN CORPUSCULAR HGB CONC 30 g/dL (32-36); MEAN CORPUSCULAR VOLUME 97 fL (80-99); MEAN PLATELET VOLUME 8.8 fL (9.0-12.2); MONOCYTES # (AUTO) 0.6 10^3/uL (0.0-1.0); MONOCYTES % (AUTO) 10 % (0-12); NEUTROPHILS % (AUTO) 62 % (42-75); PLATELET COUNT 417 10^3/uL (130-400); WHITE BLOOD COUNT 6.4 10^3/uL (4.3-11.0)
[2021-01-21 12:37] LABS: ABG BASE EXCESS 14.2 MMOL/L (-2.5-2.5); ABG OXYGEN SATURATION 98 % (94-100); ABG PO2 105 MMHG (79-93); ABG TCO2 43.9 MMOL/L (21.0-31.0)
[2021-01-21 12:38] LABS: ALLENS TEST YES-POS; INSPIRED O2 45%; PATIENT TEMP 97.1; VENTILATOR YES
[2021-01-21 12:40] LABS: ABG PCO2 85 MMHG (35-45)
[2021-01-21 12:47] LABS: ALBUMIN 3.8 GM/DL (3.2-4.5); POTASSIUM 4.1 MMOL/L (3.6-5.0)
[2021-01-21 12:48] LABS: CALCIUM 8.8 MG/DL (8.5-10.1)
--- NOTE | 2021-01-21 12:49 | ED Respiratory ---
General Stated Complaint: COPD, SOB Source: patient Exam Limitations: no limitations History of Present Illness Date Seen by Provider: Jan 21, 2021 Time Seen by Provider: 12:09 Initial Comments Patient to the ER by EMS from home with chief complaint last couple days she has been having worsening shortness of air. She has a history of chronic lung failure and suspected obstructive sleep apnea and obesity hypoventilation syndrome. She uses oxygen 2 to 3 L at baseline at home. EMS reports her oxygen saturations were in the mid 80s when they arrived and they turned her up which improved her oxygen saturations into the low 90s. Patient is supposed to be setup with a bipap outpt. Patient denies any fevers chills nausea chest pain just somnolence and increased shortness of breath. Her home health nurse came by to check on her today and discovered her oxygen saturations were low. Allergies and Home Medications Allergies Coded Allergies: Clawson And Derivatives (Verified Allergy, Intermediate, 12/19/20) MAKES TONGUE BREAK OUT duloxetine (Verified Allergy, Unknown, 03/17/20) tramadol (Verified Allergy, Unknown, 03/17/20) butorphanol (Unverified Adverse Reaction, Severe, 08/04/18) HALLUCINATIONS Penicillins (Unverified Adverse Reaction, Unknown, NAUSEA, 08/04/18) Home Medications Albuterol Sulfate 2.5 Mg/3 Ml Vial.neb, 2.5 MG INH TID PRN for SHORTNESS OF BREATH, (Reported) Albuterol Sulfate 6.7 Gm Hfa.aer.ad, 2 PUFF INH Q6H PRN for SHORTNESS OF BREATH, (Reported) Aspirin 81 Mg Tablet.dr, 81 MG PO DAILY, (Reported) Atorvastatin Calcium 40 Mg Tablet, 40 MG PO HS, (Reported) Baclofen 10 Mg Tablet, 10 MG PO HS, (Reported) Diclofenac Sodium 100 Gm Gel..gram., 100 GM TP QID PRN for PAIN-MILD (1-4), (Reported) Divalproex Sodium 500 Mg Tab.er.24h, 500 MG PO BID, (Reported) Furosemide 40 Mg Tablet, 40 MG PO TID, (Reported) Hydrochlorothiazide 25 Mg Tablet, 25 MG PO DAILY, (Reported) Insulin Aspart 100 Unit/1 Ml Vial, UNIT SQ AC, (Reported) USES INSULIN PUMP Ipratropium/Albuterol Sulfate 3 Ml Ampul.neb, 3 ML IH Q4H PRN for SHORTNESS OF BREATH Prescribed by: LEATHA ENGLISH on 01/21/21 1737 Levothyroxine Sodium 200 Mcg Tablet, 200 MCG PO DAILY, (Reported) Losartan Potassium 100 Mg Tablet, 100 MG PO DAILY, (Reported) Metoprolol Tartrate 100 Mg Tablet, 100 MG PO BID, (Reported) Naproxen 500 Mg Tablet, 500 MG PO BID, (Reported) Nitrofurantoin Monohyd/M-Cryst 100 Mg Capsule, 100 MG PO BID Prescribed by: DEMARCO LOPEZ on 12/21/20 1150 Ondansetron 4 Mg Tab.rapdis, 4 MG SL Q8H PRN for NAUSEA-1ST LINE, (Reported) Pantoprazole Sodium 40 Mg Tablet.dr, 40 MG PO DAILY, (Reported) Potassium Chloride 20 Meq Tablet.er, 20 MCG PO DAILY, (Reported) Pramipexole Di-HCl 1 Mg Tablet, 1 MG PO HS, (Reported) Pregabalin 200 Mg Capsule, 200 MG PO BID, (Reported) Solifenacin Succinate 5 Mg Tablet, 5 MG PO DAILY, (Reported) LAST FILLED 05/08/21 #30 30 DAY SUPPLY Sumatriptan Succinate 100 Mg Tablet, 100 MG PO UD PRN for MIGRAINE, (Reported) Patient Home Medication List Home Medication List Reviewed: Yes Review of Systems Review of Systems Constitutional: No chills, No fever, No malaise; weakness EENTM: No ear discharge, No ear pain Respiratory: No cough, No phlegm; short of breath; No wheezing Cardiovascular: No chest pain, No palpitations Gastrointestinal: No abdominal pain, No constipation, No diarrhea, No nausea Genitourinary: No discharge, No dysuria Musculoskeletal: No back pain, No joint pain All Other Systems Reviewed Negative Unless Noted: Yes Past Chutikq-Quysan-Rwbbpv Hx Patient Social History Tobacco Use?: No Use of E-Cig and/or Vaping dev: No Substance use?: No Immunizations Up To Date Tetanus Booster (TDap): Unknown PED Vaccines UTD: Yes Seasonal Allergies Seasonal Allergies: No Past Medical History Surgeries: Yes Cardiac, Section, Gallbladder, Orthopedic, Tubal Ligation Respiratory: Yes (RESTRICTIVE LUNG DZ;LEFT CHEST DEFORMITY;CHF;CHRONIC RESP FAILURE-3L/NC) Asthma, Pneumonia, Chronic Bronchitis, Sleep Apnea, COPD Currently Using CPAP: No Currently Using BIPAP: No Cardiac: Yes (CHF; CARDIAC ABLATION FOR SVT ) Coronary Artery Disease, Heart Attack, High Cholesterol, Hypertension, Irregular Heartbeat Neurological: Yes Headaches /Migraines, Neuropathy, Seizure Disorder, Stroke Reproductive Disorders: No 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: Tubal Ligation Genitourinary: Yes UTI-Chronic Gastrointestinal: Yes (Reports celiac disease) Ulcer, Gall Bladder Disease Musculoskeletal: Yes (BACK SURGERY FOR SCOLIOSIS; LEFT FOOT SURGERY) Fibromyalgia, Scoliosis, Chronic Back Pain Endocrine: Yes (SUPER MORBID OBESITY--> 500LBS) Diabetes, Insulin dep, Hypothyroidsim HEENT: Yes (EDENTULOUS) Cancer: No Psychosocial: Yes Anxiety, Depression Integumentary: No Blood Disorders: No Family Medical History SOCIAL HISTORY: -ETOH--OCCASIONAL USE -DRUGS--HX OF IV METHAMPHETAMINE USE -SMOKED 1/2 PPD FROM AGE 19 TO 23 PAST SURGICAL HISTORY: -BACK SURGERY FOR SCOLIOSIS AGE 15 -LEFT FOOT RECONSTRUCTION BECAUSE OF PROBLEM WITH ARCH OF FOOT - X 2 -EGD -CARDIAC ABLATION FOR SVT -CHOLECYSTECTOMY -BILATERAL TUBAL LIGATION ADDITIONAL PAST MEDICAL HISTORY: -CLAIMS SHE HAD A "STRESS HEART ATTACK" AT AGE 27--NO CARDIAC CATH, BUT HAD STRESS TEST AND ECHOCARDIOGRAM -SEIZURES DX AGE 33 -HAD POSSIBLE STROKE WITH ONE SEIZURE-HAD LEFT SIDE PARALYSIS FOR 2 WEEKS, COMPLETELY RESOLVED -PERIPHERAL NEUROPATHY -CHRONIC LEFT FOOT NUMBNESS SINCE LEFT FOOT SURGERY -IMPAIRED MOBILITY--HAS USED WALKER, WHEELCHAIR AND MOTORIZED WHEELCHAIR PAST SURCI Physical Exam Vital Signs - First Documented 01/21/21 01/21/21 11:46 12:23 Temp 36.2 Pulse 87 Resp 20 B/P (MAP) 118/81 (93) Pulse Ox 100 O2 Delivery Non Rebreather O2 Flow Rate 30.00 Capillary Refill : Height: 5'0.00" Weight: 389lbs. 0.4oz. 176.809442qo; 76.00 BMI Method:Stated General Appearance: moderate distress, obese Eyes: Bilateral Eye Normal Inspection, Bilateral Eye PERRL, Bilateral Eye EOMI HEENT: PERRL/EOMI, pharynx normal Neck: full range of motion, normal inspection Respiratory: lungs clear, normal breath sounds, no respiratory distress, no accessory muscle use Cardiovascular: normal peripheral pulses, regular rate, rhythm, no edema Gastrointestinal: normal bowel sounds, non tender, soft Neurologic/Psychiatric: alert, normal mood/affect, oriented x 3 Skin: normal color, warm/dry Focused Exam Sepsis Stage: Ruled Out Reason for ruling out sepsis: Lack of evidence on lab or vitals Progress/Results/Core Measures Suspected Sepsis SIRS Temperature: Pulse: 78 Respiratory Rate: 22 Laboratory Tests 01/21/21 12:15: White Blood Count 6.4 Blood Pressure 131 /90 Mean: Laboratory Tests 01/21/21 12:15: Creatinine 0.58L, Platelet Count 417H, Total Bilirubin 0.3 Results/Orders Lab Results Laboratory Tests Test 01/21/21 12:05 01/21/21 12:15 01/21/21 12:20 01/21/21 17:05 Range/Units Blood Gas Puncture Site RR RR Blood Gas Patient Temperature 97.1 36.6 Arterial Blood pH 7.30 *L 7.33 *L 7.37-7.43 Arterial Blood Partial Pressure CO2 85 *H 82 *H 35-45 MMHG Arterial Blood Partial Pressure O2 105 H 90 79-93 MMHG Arterial Blood HCO3 41 *H 42 *H 23-27 MMOL/L Arterial Blood Total CO2 43.9 H 44.1 H 21.0-31.0 MMOL/L Arterial Blood Oxygen Saturation 98 97 94-100 % Arterial Blood Base Excess 14.2 H 14.9 H -2.5-2.5 MMOL/L Jaime Test YES-POS YES-POS Blood Gas Ventilator Setting YES YES Blood Gas Inspired Oxygen 45% 45 White Blood Count 6.4 4.3-11.0 10^3/uL Red Blood Count 3.85 3.80-5.11 10^6/uL Hemoglobin 11.1 L 11.5-16.0 g/dL Hematocrit 37 35-52 % Mean Corpuscular Volume 97 80-99 fL Mean Corpuscular Hemoglobin 29 25-34 pg Mean Corpuscular Hemoglobin Concent 30 L 32-36 g/dL Red Cell Distribution Width 18.2 H 10.0-14.5 % Platelet Count 417 H 130-400 10^3/uL Mean Platelet Volume 8.8 L 9.0-12.2 fL Immature Granulocyte % (Auto) 1 % Neutrophils (%) (Auto) 62 42-75 % Lymphocytes (%) (Auto) 24 12-44 % Monocytes (%) (Auto) 10 0-12 % Eosinophils (%) (Auto) 3 0-10 % Basophils (%) (Auto) 1 0-10 % Neutrophils # (Auto) 4.0 1.8-7.8 10^3/uL Lymphocytes # (Auto) 1.5 1.0-4.0 10^3/uL Monocytes # (Auto) 0.6 0.0-1.0 10^3/uL Eosinophils # (Auto) 0.2 0.0-0.3 10^3/uL Basophils # (Auto) 0.0 0.0-0.1 10^3/uL Immature Granulocyte # (Auto) 0.1 0.0-0.1 10^3/uL Sodium Level 143 135-145 MMOL/L Potassium Level 4.1 3.6-5.0 MMOL/L Chloride Level 95 L 98-107 MMOL/L Carbon Dioxide Level 38 H 21-32 MMOL/L Anion Gap 10 5-14 MMOL/L Blood Urea Nitrogen 20 H 7-18 MG/DL Creatinine 0.58 L 0.60-1.30 MG/DL Estimat Glomerular Filtration Rate 111 BUN/Creatinine Ratio 34 Glucose Level 108 H 70-105 MG/DL Calcium Level 8.8 8.5-10.1 MG/DL Corrected Calcium 9.0 8.5-10.1 MG/DL Total Bilirubin 0.3 0.1-1.0 MG/DL Aspartate Amino Transf (AST/SGOT) 16 5-34 U/L Alanine Aminotransferase (ALT/SGPT) 16 0-55 U/L Alkaline Phosphatase 100 40-136 U/L C-Reactive Protein High Sensitivity 1.01 H 0.00-0.50 MG/DL B-Type Natriuretic Peptide 131.0 H <100.0 PG/ML Total Protein 7.3 6.4-8.2 GM/DL Albumin 3.8 3.2-4.5 GM/DL Procalcitonin 0.02 <0.10 NG/ML Influenza Type A (RT-PCR) Not Detected Not Detecte Influenza Type B (RT-PCR) Not Detected Not Detecte SARS-CoV-2 RNA (RT-PCR) Not Detected Not Detecte My Orders Orders - LEATHA ENGLISH Arterial Blood Gas (01/21/21 12:23) Chest 1 View, Ap/Pa Only (01/21/21 12:23) Cbc With Automated Diff (01/21/21 12:26) Comprehensive Metabolic Panel (01/21/21 12:26) Hs C Reactive Protein (01/21/21 12:26) Procalcitonin (Pct) (01/21/21 12:26) BNP (01/21/21 12:26) Covid 19 Inhouse Test (01/21/21 12:37) Influenza A And B By Pcr (01/21/21 12:37) Arterial Blood Gas (01/21/21 17:05) Vital Signs/I&O 01/21/21 01/21/21 11:46 12:23 Temp 36.2 Pulse 87 78 Resp 20 22 B/P (MAP) 118/81 (93) Pulse Ox 100 98 O2 Delivery Non Rebreather O2 Flow Rate 30.00 Capillary Refill : Progress Note #1: Time: 12:48 Progress Note She is not tachycardic or febrile. We will do some labs including a Covid swab chest x-ray put her on a BiPAP which immediately improved her work of breathing. She is now maintaining oxygen saturations in the mid 90s on 45% FiO2 with BiPAP. Her heart rate is in the 80s. Aseptic vital signs. Acute on chronic respiratory failure. Progress Note #2: Time: 14:08 Progress Note Acute on chronic respiratory failure. We are going to keep her on the BiPAP and since she is mentating we will see if we can have the drug abuse social worker talk to her and get set up so she can go home with a BiPAP today Progress Note #3: Time: 17:12 Progress Note Discussed the case with the and patient and had a long conversation about goals of care. At this time they are both willing to explore hospice care. We did discuss using [facility]. If we can get set up to send the patient home with a BiPAP that would be helpful for her comfort. She has oxygen. We are repeating an ABG to see if we made some significant improvement in her ventilation. She is mentating well says she thinks she could go home in a van and certainly looks better than when she arrived. No signs of pneumonia or infection. This is just acute on chronic respiratory failure and this provider feels that her prognosis is rather grim over the next 6 months. I think she is an appropriate candidate for hospice care and [facility] agrees. Progress Note #4: Time: 17:37 Progress Note Discussed the case with Lulu drug abuse social worker and she has [facility] bringing a BiPAP to the emergency room to be fitted in the next half hour to 1 hour. Discussed the case with Janae SANTOS monument letterer for [facility] and gave the number to the [facility]. They are going to set up a time to do the admission at home. will provide transportation home. Progress Note #5: Time: 19:01 Progress Note Bibiana from [facility] is here and brought a [employer] trilogy for the patient. We're ordering a volume ventilator for nocturnal and daytime use. Home BiPAP is insufficient due to the severity of the patient's condition. Patient requires volume ventilation due to her chronic respiratory failure, secondary to hypoventilation syndrome and COPD. The patient CO2 levels have continued to rise and she has had frequent visits to the ER for her breathing issues. The volume ventilator is required for the assured volume gas exchange that the BiPAP alone cannot provide. Diagnostic Imaging Diagonstic Imaging: Xray Plain Films/CT/US/NM/MRI: chest Comments [facility], [place] NAME: JOSIAS HADDAD [facility] REC#: [id number] PT STATUS: REG ER : 1970 PHYSICIAN: LEATHA ENGLISH MD ADMIT DATE: 01/21/21/ER Signed Date of Exam:01/21/21 CHEST 1 VIEW, AP/PA ONLY EXAMINATION: Chest, one view. HISTORY: SOA. COMPARISON: 12/20/2020. FINDINGS: Stable enlargement of the cardiac silhouette with prominence of the pulmonary vasculature. There are low lung volumes with diffuse interstitial opacities throughout both lungs. There are patchy airspace opacities within the lung bases. No pneumothorax. The osseous structures are intact. A left-sided port catheter is present. IMPRESSION: 1. Cardiomegaly with diffuse interstitial opacities which could represent pulmonary edema. 2. Patchy airspace opacities in the lung bases which could represent atelectasis or scarring as well as superimposed consolidation. Dictated by: Dictated on workstation # [id number] Dict: 01/21/21 1250 Trans: 01/21/21 1359 [id number] Interpreted by: PROSPER,TOM C DO Electronically signed by: TOM CHENG DO 01/21/21 8119 Reviewed: Reviewed by Me Departure Impression Primary Impression: Acute and chronic respiratory failure ([id number]) Qualified Codes: J96.22 - Acute and chronic respiratory failure with hypercapnia Additional Impression: Transition from acute care to hospice Disposition: 01 HOME, SELF-CARE Condition: Stable Departure-Patient Inst. Decision time for Depature: 17:16 Referrals: NO,LOCAL PHYSICIAN (PCP/Family) Primary Care Physician Patient Instructions: Palliative Care Add. Discharge Instructions: Continue wearing the oxygen as prescribed. When hospice can provide you with a BiPAP start using that specially while sleeping. If you have worsening symptoms such as severe shortness of air etc. then call your hospice nurse for advice and management of symptoms. Scripts [bipap] No Conflict Check EA INH DAILY PRN for Shortness of Breath, #1 0 Refills Prov: LEATHA ENGLISH 01/21/21 Ipratropium/Albuterol Sulfate (Iprat-Albut 0.5-3(2.5) mg/3 ml) 3 Ml Ampul.neb 3 ML IH Q4H PRN for SHORTNESS OF BREATH, #50 EACH 0 Refills Prov: LEATHA ENGLISH 01/21/21 LEATHA ENGLISH Jan 21, 2021 12:49
[2021-01-21 12:50] LABS: TOTAL PROTEIN 7.3 GM/DL (6.4-8.2)
[2021-01-21 12:51] LABS: BILIRUBIN,TOTAL 0.3 MG/DL (0.1-1.0)
[2021-01-21 12:53] LABS: CREATININE SERUM 0.58 MG/DL (0.60-1.30)
--- NOTE | 2021-01-21 12:56 | Diagnostic Imaging Report ---
EXAMINATION: Chest, one view. HISTORY: SOA. COMPARISON: 12/20/2020. FINDINGS: Stable enlargement of the cardiac silhouette with prominence of the pulmonary vasculature. There are low lung volumes with diffuse interstitial opacities throughout both lungs. There are patchy airspace opacities within the lung bases. No pneumothorax. The osseous structures are intact. A left-sided port catheter is present. IMPRESSION: 1. Cardiomegaly with diffuse interstitial opacities which could represent pulmonary edema. 2. Patchy airspace opacities in the lung bases which could represent atelectasis or scarring as well as superimposed consolidation. Dictated by: Dictated on workstation # [id number]
[2021-01-21 17:18] LABS: ABG BASE EXCESS 14.9 MMOL/L (-2.5-2.5); ABG OXYGEN SATURATION 97 % (94-100); ABG PO2 90 MMHG (79-93); ABG TCO2 44.1 MMOL/L (21.0-31.0)
[2021-01-21 17:20] LABS: ABG PCO2 82 MMHG (35-45); ABG PH 7.33 (7.37-7.43); ALLENS TEST YES-POS; INSPIRED O2 45; VENTILATOR YES
[2021-01-21 17:21] LABS: PATIENT TEMP 36.6
[2021-01-21] MEDS ORDERED: IPRA3AMP31 IH (17:37)
[2021-01-21] MEDS ORDERED: bipap INH (17:37)
[2021-01-21 19:12] VITALS: BP 149/68
== END 2021-01-21 19:12 | disposition home or self-care (01) ==
LOC: EDUNIT# 11:46 → ER 11:51
DX: J96.20 Acute and chronic respiratory failure, unspecified whether with hypoxia or hypercapnia (principal); E66.01 Morbid (severe) obesity due to excess calories; G47.30 Sleep apnea, unspecified; J44.9 Chronic obstructive pulmonary disease, unspecified; I11.0 Hypertensive heart disease with heart failure; I50.9 Heart failure, unspecified; I25.2 Old myocardial infarction; E78.00 Pure hypercholesterolemia, unspecified; I25.10 Atherosclerotic heart disease of native coronary artery without angina pectoris; E11.9 Type 2 diabetes mellitus without complications; E03.9 Hypothyroidism, unspecified; G43.909 Migraine, unspecified, not intractable, without status migrainosus; G40.909 Epilepsy, unspecified, not intractable, without status epilepticus; Z51.5 Encounter for palliative care; Z86.73 Personal history of transient ischemic attack (TIA), and cerebral infarction without residual deficits; Z20.822 Contact with and (suspected) exposure to COVID-19; Z68.45 Body mass index [BMI] 70 or greater, adult; Z79.899 Other long term (current) drug therapy; Z79.82 Long term (current) use of aspirin; Z79.890 Hormone replacement therapy; Z79.4 Long term (current) use of insulin
CPT/HCPCS: 36415; 71045; 80053; 82805; 83880; 84145; 85025; 86141; 87636

== ENCOUNTER → 2021-02-02 | Outpatient (CLI) | payer MEDICAID ==
[~2021-02-02] MED LIST changes: +IPRA3AMP31 IH; +bipap INH
[2021-02-02 13:09] LABS: POTASSIUM 2.6 MMOL/L (3.6-5.0)
[2021-02-02 13:10] LABS: CALCIUM 7.5 MG/DL (8.5-10.1)
[2021-02-02 13:14] LABS: CREATININE SERUM 0.77 MG/DL (0.60-1.30)
[2021-02-02 13:23] LABS: VALPROIC ACID 28.5 UG/ML (50.0-100.0)
== END ==
LOC: LABNPT 12:52
PROVIDERS: ATTEND Internal Medicine
DX: Z01.89 Encounter for other specified special examinations (principal)
CPT/HCPCS: 80048; 80164

== ENCOUNTER → 2021-03-14 | Outpatient (CLI) | payer MEDICAID ==
--- NOTE | 2021-03-14 15:28 | Diagnostic Imaging Report ---
INDICATION: Fall with injury to head and visual changes. TECHNIQUE: Multiple contiguous axial images were obtained through the brain without the use of intravenous contrast. Auto Exposure Controls were utilized during the CT exam to meet ALARA standards for radiation dose reduction. There is no prior study for comparison. There are no extra-axial fluid collections. No intracranial hemorrhage. No intracranial mass or mass effect. No midline shift. The ventricles are normal in size and position. There were no focal parenchymal abnormalities in the brain. Calvarial windows are unremarkable. Orbital contents appear normal. IMPRESSION: Negative noncontrast brain CT. Dictated by: Dictated on workstation # [id number]
== END ==
LOC: RAD 15:15
PROVIDERS: ATTEND Student in an Organized Health Care Education/Training Program
DX: S09.90XA Unspecified injury of head, initial encounter (principal); W19.XXXA Unspecified fall, initial encounter
CPT/HCPCS: 70450

== ENCOUNTER 2021-04-05 14:08 | Emergency (ER) | payer MEDICAID ==
[~2021-04-05] VITALS: Ht 152 cm; Wt 168.0 kg
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
--- OUTSIDE RECORDS SUMMARY | 2021-04-05 14:13 | XMS REPORT | Clinical Summary ---
Author Author [facility] Organization [facility] Address Unknown Phone Unavailable Care Team Providers Care Machine Shop Lead Man Name Role Phone Enzopam Liankai Marcelino DO PP Allergies Comments Active Allergy Reactions Severity Noted Date Butorphanol Tartrate Unknown 07/12/2012 Duloxetine Unknown 07/12/2012 Pain in teeth Gabapentin Other (see 08/28/2016 comments) Listed from other clinic Oxcarbazepine Other (see 08/28/2016 comments) Penicillins Unknown 07/12/2012 Listed from other clinic Ziprasidone Hcl Unknown 08/28/2016 Medications End Date Status Medication Sig Dispensed Refills Start Date Active furosemide (LASIX) 40 mg Take 40 mg by 0 tablet mouth 2 (two) times per day. Active levothyroxine (SYNTHROID, Take 137 mcg 0 LEVOTHROID) 137 mcg by mouth 1 tablet (one) time each day. Active insulin detemir U-100 Inject 33 0 (LEVEMIR) 100 unit/mL Units under injection the skin every night. Active ergocalciferol, vitamin Take by 0 D2, (VITAMIN D2 ORAL) mouth. Active spironolactone Take 25 mg by 0 (ALDACTONE) 25 mg tablet mouth every other day. Active ferrous sulfate 325 mg Take 65 mg by 0 (65 mg iron) EC tablet mouth 1 (one) time each day with breakfast. Active losartan (COZAAR) 50 mg Take 50 mg by 0 tablet mouth 1 (one) time each day. Active atorvastatin (LIPITOR) 40 Take 40 mg by 0 mg tablet mouth 1 (one) time each day. Active metoprolol tartrate Take 100 mg 0 (LOPRESSOR) 100 mg tablet by mouth 2 (two) times per day. Active baclofen (LIORESAL) 10 mg Take 10 mg by 0 tablet mouth every night. Active pramipexole (MIRAPEX) Take 0.25 mg 0 0.25 mg tablet by mouth 2 (two) times per day. Active pregabalin (LYRICA) 200 Take 200 mg 0 mg capsule by mouth 2 (two) times per day. Active divalproex (DEPAKOTE) 500 Take 500 mg 0 mg EC tablet by mouth 2 (two) times per day. Active solifenacin (VESICARE) 5 Take 5 mg by 0 mg tablet mouth 1 (one) time each day. Active insulin aspart U-100 Inject 5 0 (NovoLOG U-100 Insulin Units under 9 aspart) 100 unit/mL the skin. injection Active Problems Problem Noted Date Essential hypertension 08/28/2016 Acquired hypothyroidism 08/28/2016 Fibromyalgia 08/28/2016 Seizure 08/28/2016 BMI 50.0-59.9, adult 08/28/2016 Hypertension 04/17/2014 Morbid obesity 04/17/2014 Immunizations Name Administration Dates Next Due Influenza (IM) 08/28/2016 Preservative Free Family History Medical History Relation Name Comments Diabetes Maternal Grandfather Hypertension Maternal Grandmother Hypertension Mother Diabetes Paternal Grandmother Relation Name Status Comments Maternal Grandfather Maternal Grandmother Mother Paternal Grandmother Social History Date Tobacco Use Types Packs/Day Years Used Never Smoker Comments Alcohol Use Standard Drinks/Week Alcoholic Drinks/day: once per year No 0 (1 standard drink = 0.6 o z pure alcohol) Sex Assigned at Date Recorded Not on file Last Filed Vital Signs Reading Time Taken Comments Vital Sign 167/90 05/05/2019 4:00 PM [facility]IAL [facility] Blood Pressure 92 05/05/2019 4:00 PM [facility] Pulse 36.5 C (97.7 F) 05/05/2019 4:00 PM [facility]IAL [facility] Temperature 19 05/05/2019 4:00 PM [facility] Respiratory Rate 96% 05/05/2019 4:00 PM [facility] Oxygen Saturation - - Inhaled Oxygen Concentration 139 kg (307 lb 8 oz) 05/05/2019 2:30 PM DIAL [facility] Weight 152.4 cm (5') 01/07/2019 4:38 PM CDT Height 60.05 01/07/2019 4:38 PM CDT Body Mass Index Plan of Treatment Health Maintenance Due Date Last Done Comments CT Colonography 1972 Cologuard 1972 Colonoscopy 1972 Colorectal Cancer 1972 Screening MMR Vaccines (1 of 1 - 1973 Standard series) Varicella Vaccines (1 of 1973 2 - 2-dose childhood series) Foot Exam 1982 Ophthalmology Exam 1982 COVID-19 Vaccine (1) 1984 Depression Screening 1984 Hepatitis B Vaccines (1 1991 of 3 - Risk 3-dose series) Hemoglobin A1C 04/18/2017 10/17/2016 FOBT/FIT 2017 Sigmoidoscopy 2017 Lipid Panel 08/28/2017 08/28/2016, 10/27/2013, 06/17/2012 Pap Smear 08/28/2019 08/28/2016 Urine Microalbumin 11/19/2019 11/18/2018 Influenza Vaccine (#1) 2021 08/28/2016, 06/12/2012, 06/29/2010, Additional history exists DTaP,Tdap,and Td Vaccines 11/16/2021 11/17/2011 (2 - Td or Tdap) HIB Vaccines Aged Out No longer eligible based on patient's age to complete this topic HPV Vaccines Aged Out No longer eligible based on patient's age to complete this topic Hepatitis A Vaccines Aged Out No longer eligibl e based on patient's age to complete this topic IPV Vaccines Aged Out No longer eligible based on patient's age to complete this topic Meningococcal Vaccine Aged Out No longer eligib le based on patient's age to complete this topic Pneumococcal Aged Out No longer eligible based on patient's age to complete this topic Results Not on filefrom Last 3 Months Insurance Type Payer Benefit Subscriber ID Effective Phone Address Plan / Dates Group [facility] MEDICAID REPLACEMENT [facility] [id number] 2018- [address] MEDICAID Present [id number] 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
--- OUTSIDE RECORDS SUMMARY | 2021-04-05 14:13 | XMS REPORT | Clinical Summary ---
Author Author [facility] Address Unknown Phone Unavailable Care Team Providers Care Spudder Name Role Phone Jourdan Turk MD Unavailable Najma Ng MD Unavailable Araceli Barba DO PCP Allergies Comments Active Allergy Reactions Severity Noted Date Flu like reaction Duloxetine Hcl Other (See 11/01/2011 Comments) Face hurts Gabapentin Other (See 11/01/2011 Comments) Oxcarbazepine Hives Medium 11/01/2011 Penicillins 01/29/2011 Sertraline Nausea And Low 04/02/2019 Vomiting Butorphanol Tartrate 01/29/2011 Tramadol Itching, 03/07/2017 Nausea Only Irritability Ziprasidone 11/01/2011 Medications End Date Status Medication Sig Dispensed Refills Start Date Active albuterol-ipratropium Take 3 mLs by 0 (DUONEB) 0.5-2.5 (3) nebulization MG/3ML SOLN nebulizer 3 (three) solution times daily as needed. Active metoprolol tartrate Take 1 tablet 180 tablet 3 01/30 (LOPRESSOR) 100 MG (100 mg 0 tabletIndications: total) by Essential hypertension mouth 2 (two) times daily. Additional Information Patient not taking. Reported on 12/16/2020 Active solifenacin (VESICARE) 5 Take 1 tablet 90 tablet 1 MG tabletIndications: (5 mg total) 0 Urinary incontinence, by mouth unspecified type daily. Additional Information Patient not taking. Reported on 12/16/2020 Active pantoprazole (PROTONIX) Take 1 tablet 90 tablet 1 40 MG tabletIndications: (40 mg total) 0 Gastroesophageal reflux by mouth disease without daily. esophagitis Active naproxen (NAPROSYN) 500 Take 1 tablet 180 tablet 1 MG tabletIndications: (500 mg 0 Right elbow pain total) by mouth 2 (two) times daily with meals. Active divalproex (DEPAKOTE) 500 Take 1 tablet 180 tablet 1 MG tabletIndications: (500 mg 0 Seizure disorder (HCC) total) by mouth 2 (two) times daily. Active oxycodone-acetaminophen Take 1 tablet 0 (PERCOCET) 5-325 MG by mouth every 4 (four) hours as needed for Moderate Pain. Active baclofen (LIORESAL) 10 MG Take 1 tablet 30 tablet 6 tabletIndications: (10 mg total) 0 Seizure disorder (HCC) by mouth at bedtime. Active fluticasone (FLONASE) 50 Place 1 spray 16 g 6 MCG/ACT nasal into each 0 sprayIndications: nostril Seasonal allergic daily. rhinitis due to pollen Active losartan (COZAAR) 100 MG Take 1 tablet 30 tablet 6 tabletIndications: (100 mg 0 Essential hypertension total) by mouth daily. Additional Information Patient not taking. Reported on 12/16/2020 Active HYDROcodone-acetaminophen Take 1-2 0 06/01 (NORCO) 5-325 MG tablet tablets by 0 mouth. Active hydrochlorothiazide Take 1 tablet 30 tablet 2 (HYDRODIURIL) 25 MG (25 mg total) 1 tabletIndications: by mouth Essential hypertension daily. Additional Information Patient not taking. Reported on 12/16/2020 Active nystatin (NYSTATIN) Apply 30 g 3 powder topically 4 1 (four) times daily. Additional Information Patient not taking. Reported on 12/16/2020 Active SUMAtriptan (IMITREX) 100 Take 1 tablet 9 tablet 2 MG tabletIndications: (100 mg 1 Hemiplegic migraine total) by without status mouth at migrainosus, not onset of intractable migraine. If symptoms persist, a second dose may be taken in 2 hours. Additional Information Patient not taking. Reported on 12/16/2020 Active diclofenac (VOLTAREN) 1 % Apply 4 g 100 g 3 gelIndications: Chronic topically 4 1 foot pain, left (four) times daily. Active pramipexole (MIRAPEX) 1 TAKE 1 TABLET 90 tablet 0 MG tabletIndications: RLS BY MOUTH AT 1 (restless legs syndrome) BEDTIME Active ondansetron (ZOFRAN-ODT) DISSOLVE 1 20 tablet 0 0 4 MG disintegrating TABLET IN 1 tabletIndications: Nausea MOUTH EVERY 8 HOURS NEEDED FOR NAUSEA Active pregabalin (LYRICA) 200 Take 1 tablet 60 capsule 5 MG capsuleIndications: by mouth 1 Diabetes, type 1.5, twice daily uncontrolled, managed as type 1 (HCC) Additional Information Patient not taking. Reported on 12/16/2020 Active atorvastatin (LIPITOR) 40 Take 1 tablet 90 tablet 0 MG tabletIndications: by mouth once 1 Mixed hyperlipidemia daily Active levothyroxine (SYNTHROID) TAKE 1 TABLET 90 tablet 0 200 MCG BY MOUTH IN 1 tabletIndications: THE MORNING Hypothyroidism (acquired) BEFORE BREAKFAST Additional Information Patient not taking. Reported on 12/16/2020 Active furosemide (LASIX) 40 MG Take 1 tablet 180 tablet 1 tabletIndications: (40 mg total) 1 Essential hypertension by mouth 2 (two) times daily. Additional Information Patient not taking. Reported on 12/16/2020 Active predniSONE (DELTASONE) 10 Take 1 tablet 21 tablet 0 MG tablet (10 mg total) 1 by mouth daily. Take 60 mg daily, decrease by 1 tab (10 mg) daily. Additional Information Patient not taking. Reported on 12/16/2020 Active insulin aspart (NOVOLOG) Inject 0.4 30 mL 12 0 100 UNIT/ML mLs (40 Units 1 injectionIndications: total) into Type 2 diabetes mellitus the skin 3 with hyperglycemia, with (three) times long-term current use of daily with insulin (HCC) meals. Additional Information Patient not taking. Reported on 12/16/2020 Active diflorasone (PSORCON) Apply 0 0.05 % cream topically. Active Ostomy Supplies (SKIN TAC 1 patch by 30 each 3 ADHESIVE BARRIER WIPE) Does not 1 MISCIndications: apply route Diabetes, type 1.5, daily as uncontrolled, managed as needed type 1 (HCC) (problems with insulin pump sticking). Active Problems Problem Noted Date Acute diastolic congestive heart failure 12/20/2020 Last Assessment & Plan: Formatting of this note might be differ ent from the original. Had Echo @ [facility] 11/2020 Showed normal EF 65-70% and mild diasto lic dysfunction Physical debility 11/25/2020 Hospital discharge follow-up 10/21/2020 Last Assessment & Plan: Formatting of this note might be differ ent from the original. Reviewed Discharge Summary from [facility] Spoke with [facility] in [place], [place] She states that they have had provider following [place] while she has been living down in [place] Discussed that she will take care and o rder home health She will manage primary care issues I will still help with managing diabete s - she will help with all other aspects of managing patient since she i s local and has easier access to see patient / labs /etc Intertrigo 08/30/2020 Last Assessment & Plan: Formatting of this note might be differ ent from the original. Continue nystatin powder Will try daily x 7 days Stress incontinence of urine 08/13/2020 Paradoxical incontinence 08/13/2020 Last Assessment & Plan: Formatting of this note might be differ ent from the original. Order for pads Sent to [facility] Nausea 10/29/2019 Last Assessment & Plan: Formatting of this note might be differ ent from the original. 1. Marisela PRN Pt will come in if not improved and we will get labs to evaluate her If patient becomes worse, advised to go to ER Positive CHRISTIANNE antibody 10/29/2019 Diabetes, type 1.5, uncontrolled, managed as type 1 10/29/2019 Last Assessment & Plan: Formatting of this note might be differ ent from the original. Continue to wear Dexcom / Tandem Will try and get sharing set up with jeovanny [employer] to help keep insulin pump on The patient has been counseled about co ntinuous glucose monitor. Patient thinks that a continuous glucose monito r would aid patient in getting their diabetes under control. - Patient has diabetes - Patient checks four (4) times per day on their own glucometer at home - Patient is currently on an insulin p ump - Patient requires frequent adjustments to their insulin regimen by the patient on the basis of therapeutic CGM testing results - Patient will continue to follow with this provider at the minimum of every six (6) months to continue to akilah luate the CGM and see if this is still beneficial Mixed hyperlipidemia 09/29/2019 Last Assessment & Plan: Formatting of this note might be differ ent from the original. Stable. Continue current medications. No change to current therapy. Seizure disorder 08/05/2019 Morbid obesity with body mass index (BMI) of 50.0 to 59.9 in adult 06/17/2019 Overview: Formatting of this note might be differ ent from the original. Updated 07.19.[address] Frank 06.22.2019: " BMI 50.0-59 .9, adult/Morbid obesity: agressive weight loss encouraged, " Diann vargas Assessment & Plan: Formatting of this note might be differ ent from the original. Patient has morbid obesity This causes problems with her mobility around her house as well Chronic foot pain, left 04/07/2019 Overview: Formatting of this note might be differ ent from the original. She reported history of medial column f usion due to deformity. She had postoperative complication with infecti on that was treated. She has persistent pain and deformity of her fo ot that limits her activities. CT scan today Continue following with Dr. Dk vargas Assessment & Plan: Formatting of this note might be differ ent from the original. Last x-ray of the foot was October 2019. Indicating osteopenia postoperative gee gical repair some misalignment of the navicular bone Negative for fractures or dislocation Patient indicates opioids were somewhat effective in management of the pain. Last prescription of opioids was picked up in August 2020. That provider since discontinued the use of opioids and the patient is without therapy at this time. Patient denies a ny other useful pain therapy to mind. Patient is agreeable to continue ambulation and exercise if the foot pain would be remedied. Will attempt d iclofenac gel to be applied to the foot 3-4 times a day. Patient will rep ort back effectiveness of therapy Overactive bladder 01/14/2019 Overview: Formatting of this note might be differ ent from the original. Continue vesicare RLS (restless legs syndrome) 11/22/2018 Overview: Formatting of this note might be differ ent from the original. On Mirapex for quite some time Increased Mirapex to 0.5 mg twice daily as needed Iron studies low and now on nightly iro n replacement with vitamin C, hoping this will help treat restless legs Nonintractable epilepsy without status epilepticus 0 11/22/2018 Overview: Formatting of this note might be differ ent from the original. Has seen epilepsy neurology here in the past. Well-controlled on depakote- refilled until she is able to establish with neurology. No longer on keppra I have asked her to call neurology for sooner appointment due to concern for more frequent seizures recently SVT (supraventricular tachycardia) 11/22/2018 Overview: Formatting of this note might be differ ent from the original. Status post ablation in 2008 On metoprolol 100 mg a day COPD with asthma 11/22/2018 Overview: Formatting of [...] albuterol Follow up planned in pulmonary clinic L ast Assessment & Plan: Formatting of this note might be differ ent from the original. Patient continues to need oxygen This could be contributing to her need for oxygen and not being very mobile Chronic respiratory failure 11/22/2018 Overview: Formatting of [...] CPAP titration -I will refer her for nora randhawa sleep study and she will see pulmonary clinic in 03/2019 L ast Assessment & Plan: Formatting of this note might be differ ent from the original. Continue to wear oxygen Patient is to wear oxygen during day an d at night Chronic combined systolic and diastolic heart failure 11/22/2018 Overview: Formatting of this note might be differ ent from the original. Presumed HFpEF admitted August 2017 to via [facility] with edema dyspnea and chest pain Records [...] cardiology 04/01- plan for repeat ec ho L ast Assessment & Plan: Formatting of this note might be differ ent from the original. Patient has had significant weight gain Echo repeated 09/2020 - at [facility] Normal EF Will continue lasix BID at this time May consider change to Bumex in the fut ure Will monitor kidney function Recurrent major depressive disorder, in partial remis edy 01/25/2017 Hypothyroidism (acquired) 08/28/2016 Overview: Formatting of this note might be differ ent from the original. Formatting of this note might be differ ent from the original. TSH Lab Results Component Value Date/Time TSH 12.61 (H) 02/14/2019 02:37 PM Will increase levothyroxine to 150 mcg 3 days per week and 175mcg 4 days per week and stressed the importance of taking the medication as directed 30 minutes before breakfast. Repeat TSH ordered L ast Assessment & Plan: Formatting of this note is different fr om the original. Lab Results Component Value Date TSH 14.887 (H) 04/20/2020 FREET4 0.85 04/20/2020 Will get repeated thyroid labs Essential hypertension 04/17/2014 Overview: Formatting of this note might be differ ent from the original. Formatting of this note might be differ ent from the original. She is currently taking lasix 40mg/day, losartan 50mg/day, spironolactone 25mg/day BP Readings from Last 3 Encounters: 04/02/19 (!) 150/93 04/02/19 (!) 179/115 04/01/19 144/83 She did not take BP medications today Will reassess at follow up L ast Assessment & Plan: Formatting of this note might be differ ent from the original. Patient's blood pressure monitoring is inconsistent. Patient reported systolic of 190s over 100s over last fe w days. She is inconsistent with take her blood pressure medication. An d does admit to a blood pressure cuff now is not working and will pick u p a new one over the next few days. Educated to the patient the importance of lowering blood pressure to reduce overall symptoms that include nosebleed s headaches overall not feeling well dizzy episodes. Do some blood pressure along with glucose control and weight management can reduce the risk f or strokes and other medical injuries. Agreeable to continue taking medication to include diuretics and to citrus picker a new blood pressure cuff fo r self-monitoring until she feels comfortable with coming to an office pr oper assessment Migraine, unspecified, without mention of intractable migraine without mention of status migrainosus Last Assessment & Plan: Formatting of this note might be differ ent from the original. Refill Imitrex Patient has migraine Resolved Problems Problem Noted Date Resolved Date Other chest pain 10/11/2020 10/21/2020 Diabetic polyneuropathy associated with type 2 diabetes isabel litus 09/03/2019 01/06/2020 Last Assessment & Plan: Formatting of this note might be differ ent from the original. As above Continue gabapentin Type 2 diabetes mellitus with hyperglycemia, with emmie g-term current use of 01/25/2017 01/06/2020 insulin Overview: Formatting of this note is different fr om the original. Formatting of this note might be differ ent from the original. Diagnosed 1 to 2 years [...] July. H as already had diabetic education L ast Assessment & Plan: Formatting of this note might be differ ent from the original. 1. Will try and see if Trulicity or Oz empic is covered - wasn't covered in the past, will check this year 2. Will do labs today - not sure if jeovanny reddy will get labs done due to likely her sugars will be > 150 3. Will try to see if patient may qual radha for pump 4. Will switch from Levemir - to Touje o and see if this is covered Cardiac dysrhythmia, unspecified 03/05/2017 Other specified cardiac dysrhythmias(427.89) 2016 Immunizations Name Administration Dates Next Due COVID-19 mRNA LNP-S PF 10/28/2020, 09/29/2020 (Moderna) INFLUENZA IIV4 PF 04/02/2019, 04/06/2017, (FLULAVAL,FLUZONE,FLUARIX ,AFLURIA QUAD) Influenza IIV3 MDV 07/24/2018 (Multi-dose vial) Influenza IIV3 PFree 06/12/2012, 06/29/2010, 01/2010, 06/02/2008 Influenza IIV4 MDV 07/24/2018 (Multi-dose vial) Influenza TIV (HX thru 06/02/2008, 05/06/2007, 09/2005, 06/13/2003 Mar 31 2010) MMR 08/05/2019 Pneumococcal 08/05/2019 Polysaccharide (23-valent) Tdap 11/17/2011 Family History Medical History Relation Name Comments Other Brother Jc blood clotting issue No Known Problems Daughter Tracy Other Daughter Shahrzad Frequent UTIs Heart attack Maternal Grandfather Hypertension Maternal Grandmother Transient Ischemic Attack Maternal Grandmother Diabetes Mother Heart Surgery Mother Stent placement Heart disease Mother Hypertension Mother Obesity Mother Strabismus Mother Other Other Maternal Grandmothe r - is , Cause of :strokes; Other History: irregular heartbeat; stroke Other Other Family History Comm ents - Pt does not know anything about her father., All of her family has HTN. Relation Name Status Comments Brother Juan R MVA (Age 49) Brother Jc Alive Brother Joel SIDS (Age 23mo) Daughter Tracy Alive Daughter Shahrzad Alive Father unknown Maternal Grandfather Maternal Grandmother Mother Other Other Paternal Grandfather Paternal Grandmother Sister Noemí Alive Social History Date Tobacco Use Types Packs/Day Years Used Quit: 07/02/1989 Former Smoker 0 Smokeless Tobacco: Never Used Tobacco Cessation: Counseling Given: Yes Comments: Quit smoking: Year stopped 1990/Number of yrs: /Packs per day: /Pack years: Comments Alcohol Use Standard Drinks/Week Very rare occasion Yes 0 (1 standard drink = 0.6 o z pure alcohol) Alcohol Habits Answer Date Recorded How often do you have a drink containing alcohol? Monthly or less 09/10/2020 How many drinks containing alcohol do you have on 1 or 2 09/10/2020 a typical day when you are drinking? How often do you have six or more drinks on one Never 09/10/2020 occasion? Social Isolation Answer Date Recorded In a typical week, how many times do you talk on Three nick es a week 06/18/2019 the phone with family, friends, or neig hbors? How often do you get together with friends or Three times a week 06/18/2019 relatives? How often do you attend mandaen or mandaen Never 06/18/2019 services? Do you belong to any clubs or organizations such No 06/18/2019 as mandaen groups, unions, fraternal or athletic groups, or school groups? How often do you attend meetings of the clubs or Never 06/18/2019 organizations you belong to? Are you now , , , , 06/18/2019 never or living with a partner? Physical Activity Answer Date Recorded On average, how many days per week do you engage 0 days 06/18/2019 in moderate to strenuous exercise (like walking fast, running, jogging, dancing, swimmi ng, biking, or other activities that cause a light or heavy sweat)? On average, how many minutes do you engage in 0 min 06/18/2019 exercise at this level? Stress Answer Date Recorded Do you feel stress - tense, restless, nervous, or Only a l ittle 09/10/2020 anxious, or unable to sleep at night be cause your mind is troubled all the time - these d ays? Financial Resource Strain Answer Date Recorde d How hard is it for you to pay for the very basics Somewhat hard 06/18/2019 like food, housing, medical care, and h eating? Intimate Partner Violence Answer Date Recorde d Within the last year, have you been afraid of your No 06/18/2019 partner or ex-partner? Within the last year, have you been humiliated or No 06/18/2019 emotionally abused in other ways by you r partner or ex-partner? Within the last year, have you been kicked, hit, No 06/18/2019 slapped, or otherwise physically hurt b y your partner or ex-partner? Within the last year, have you been raped or No 06/18/2019 forced to have any kind of sexual activ ity by your partner or ex-partner? Food Insecurity Answer Date Recorded Within the past 12 months, you worried that your Never archana e 06/18/2019 food would run out before you got money to buy more. Within the past 12 months, the food you bought Never true 06/18/2019 just didn't last and you didn't have mo malgorzata to get more. Transportation Needs Answer Date Recorded In the past 12 months, has lack of transportation No 06/18/2019 kept you from medical appointments or f rom getting medications? In the past 12 months, has lack of transportation No 06/18/2019 kept you from meetings, work, or gettin g things needed for daily living? Control Partners Comments Sexually Active Tubal Ligation Male Yes Sex Assigned at Date Recorded Female 01/02/2020 4:52 AM CDT Industry Job Start Date Occupation Not on file Not on file Not on file Last Filed Vital Signs Reading Time Taken Comments Vital Sign 128/64 10/11/2020 3:21 PM CDT Blood Pressure 122 10/21/2020 8:07 AM CDT Pulse 36.3 C (97.4 F) 10/11/2020 3:21 PM CDT Temperature 21 10/11/2020 3:21 PM CDT Respiratory Rate 92% 10/21/2020 8:07 AM CDT Oxygen Saturation - - Inhaled Oxygen Concentration 181.3 kg (399 lb 9.6 oz) 11/25/2020 8:32 AM CDT Weight 152.4 cm (5') 11/25/2020 8:32 AM CDT Height 78.04 11/25/2020 8:32 AM CDT Body Mass Index Plan of Treatment Health Maintenance Due Date Last Done Comments Cervical Cancer Screening 1993 Urine Microalbumin 08/05/2020 08/05/2019, 08/05/2019 Diabetic Foot Exam 09/02/2020 09/03/2019 Diabetic Eye Exam 01/13/2021 01/14/2020, 01/05/2020 Influenza Vaccine (#1) 2021 04/02/2019, 07/24/2018, 07/24/2018, Additional history exists Diabetic A1C Due 06/06/2021 12/05/2020, 10/08/2020, 10/08/2020, Additional history exists DTaP,Tdap,and Td Vaccines 11/16/2021 11/17/2011 (2 - Td or Tdap) Pneumo-Vaccine: 65+Yrs (2 2037 08/05/2019 of 2 - PPSV23) Pneumo-Vaccine: Peds (0-5 2037 08/05/2019 Yrs) & At-Risk Patients (6-64 Yrs) (2 of 2 - PPSV23) MMR Vaccines-Adult Completed 08/05/2019 Hepatitis C Screening Completed 04/20/2020 COVID-19 Vaccine Completed 10/28/2020, 09/29/2020 HIB Vaccines Aged Out No longer eligible based on patient's age to complete this topic IPV Vaccines Aged Out No longer eligible based on patient's age to complete this topic Meningococcal Vaccine Aged Out No longer eligib le based on patient's age to complete this topic Rotavirus Vaccines Aged Out No longer eligible based on patient's age to complete this topic Goals Goal Patient Associated Recent Progress Patient-Stat Aut hor Goal Type Problems ed? Have 3 meals a day Diet No Mariajose Washington RD LD CDE Note: 1. Didn't try 2. Could do better 3. Things are improving 4. Very well! Monitoring - Test blood Lifestyle No Marito cota, glucose JOAO Mccracken CDE Note: 1. Didn't try 2. Could do better 3. Things are improving 4. Very well! Increase physical activity Lifestyle No Mariajose Ray RD LD CDE Note: 1. Didn't try 2. Could do better 3. Things are improving 4. Very well! 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 Explanation Type Date Recorded Advance Directives and Living Will Power of Locker Operator Date Inactivated Comments Code Status Date Activated Full Code 06/22/2019 12:52 PM 06/22/2019 12:52 PM Full Code 06/17/2019 9:46 PM 06/17/2019 9:46 PM Full Code 06/17/2019 6:49 PM Care Teams Start Date End Date Spudder Relationship Specialty 02/11/20 Araceli Barba, PCP - General Internal [address] [place] [address] [place] [address] 08/21/16 Jourdan Turk MD Cardiology [address] [place], [place] [id number] 04/05/17 Najma Ng MD Pulmonology [address] [facility] ([facility]) [place], [place] [id number]
[2021-04-05 14:48] LABS: BASOPHILS % (AUTO) 1 % (0-10); EOSINOPHILS # (AUTO) 0.3 10^3/uL (0.0-0.3); EOSINOPHILS % (AUTO) 5 % (0-10); HEMATOCRIT 38 % (35-52); HEMOGLOBIN 11.8 g/dL (11.5-16.0); LYMPHOCYTES # (AUTO) 2.1 10^3/uL (1.0-4.0); LYMPHOCYTES % (AUTO) 37 % (12-44); MEAN CORPUSCULAR HEMOGLOBIN 29 pg (25-34); MEAN CORPUSCULAR HGB CONC 31 g/dL (32-36); MEAN CORPUSCULAR VOLUME 93 fL (80-99); MEAN PLATELET VOLUME 9.3 fL (9.0-12.2); MONOCYTES # (AUTO) 0.6 10^3/uL (0.0-1.0); MONOCYTES % (AUTO) 11 % (0-12); NEUTROPHILS # (AUTO) 2.8 10^3/uL (1.8-7.8); NEUTROPHILS % (AUTO) 47 % (42-75); PLATELET COUNT 366 10^3/uL (130-400); WHITE BLOOD COUNT 5.8 10^3/uL (4.3-11.0)
[2021-04-05 14:50] LABS: ALBUMIN 3.8 GM/DL (3.2-4.5); POTASSIUM 4.1 MMOL/L (3.6-5.0)
[2021-04-05 14:51] LABS: CALCIUM 9.2 MG/DL (8.5-10.1)
[2021-04-05 14:54] LABS: BILIRUBIN,TOTAL 0.5 MG/DL (0.1-1.0)
[2021-04-05] MEDS ORDERED: FUROSEMIDE 40 MG/4 ML INJ (LASIX) IVP STA ×2 (14:54→15:33)
[2021-04-05 14:56] LABS: CREATININE SERUM 0.63 MG/DL (0.60-1.30)
--- NOTE | 2021-04-05 15:04 | ED General ---
General Chief Complaint: Respiratory Problems Stated Complaint: SOB Nursing Triage Note: PT ARRIVES TO ER VIA [facility]. PT C/O WORSENING SOB ONSET 2 WEEKS AGO. PT C/O BILATERAL LEG SWELLING, WORSE OVER THE PAST MONTH, REPORTS IS ON DIURETICS. UPON EMS ARRIVAL, PT O2 STA ON 4L VIA NC WAS IN UPPER 80'S, EMS REPORTS THAT PT HAD A VERY LONG HOSE ATTACHED TO HER OXYGEN AT THAT TIME. REPORTS SHORTENED THE HOSE AND SAT'S IMPROVED TO UPPER 90'S. PT A/O x 4 UPON ARRIVAL TO ER. History of Present Illness Date Seen by Provider: Apr 05, 2021 Time Seen by Provider: 14:10 Initial Comments 50-year-old obese patient presents via EMS. reports they were told by [facility] to come to ED for ABGs. They are needing documented ABGs for her to qualify for bi-pap. She denies any other reason for coming to ED, she has no complaints. Chronic CHF, hypertension, edema, DM, oxygen dependent, and debilitated with home care needs. and home health assist with her care. She is not interested in senior care care. She has limited ambulatory status. EMS reports sats of 86% on 4L per NC. She was on a long tube for NC. They placed her on shorter O2 per NC and she improved to 98%. She has been 100% since presenting to ED on 4 L per NC. Decreased to 2L and continued at 100%, tried RA and maintained 97-99% SaO2. She denies taking any of her medications today. She does report her arms have seemed more swollen than normal, but legs are about normal edema for her. Patient reports her glucose was 40 yesterday. Accucheck 93. Timing/Duration: Intermittent Severity: Severe Associated Systoms: Denies Symptoms; No Chest Pain, No Cough, No Diaphoresis, No Fever/Chills, No Headaches, No Loss of Appetite, No Malaise, No Nausea/Vomiting; Shortness of Air (chronic, at baseline.); No Syncope; Weakness (due to body habitus) Allergies and Home Medications Allergies Coded Allergies: Terry And Derivatives (Verified Allergy, Intermediate, 12/19/20) MAKES TONGUE BREAK OUT duloxetine (Verified Allergy, Unknown, 03/17/20) tramadol (Verified Allergy, Unknown, 03/17/20) butorphanol (Unverified Adverse Reaction, Severe, 08/04/18) HALLUCINATIONS Penicillins (Unverified Adverse Reaction, Unknown, NAUSEA, 08/04/18) Patient Home Medication List Home Medication List Reviewed: Yes Albuterol Sulfate (Albuterol Sulfate) 2.5 Mg/3 Ml Vial.neb, 2.5 MG INH TID PRN for SHORTNESS OF BREATH, (Reported) Entered as Reported by: LUIS MATHIS on 08/04/18 1734 Albuterol Sulfate (Proventil Hfa) 6.7 Gm Hfa.aer.ad, 2 PUFF INH Q6H PRN for SHORTNESS OF BREATH, (Reported) Entered as Reported by: LUIS MATHIS on 08/04/18 1734 Aspirin (Aspirin EC) 81 Mg Tablet.dr, 81 MG PO DAILY, (Reported) Entered as Reported by: SAMEER BUTTS on 11/19/20 1054 Atorvastatin Calcium (Atorvastatin Calcium) 40 Mg Tablet, 40 MG PO HS, (Reported) Entered as Reported by: LUIS MATHIS on 08/04/18 1734 Baclofen (Baclofen) 10 Mg Tablet, 10 MG PO HS, (Reported) Entered as Reported by: SAMEER BUTTS on 10/14/20 1536 Diclofenac Sodium (Diclofenac Sodium) 100 Gm Gel..gram., 100 GM TP QID PRN for PAIN-MILD (1-4), (Reported) Entered as Reported by: SHERIF GUPTA on 12/20/20 1444 Divalproex Sodium (Divalproex Sodium ER) 500 Mg Tab.er.24h, 500 MG PO BID, (Reported) Entered as Reported by: LUIS MATHIS on 08/04/18 1734 Furosemide (Furosemide) 40 Mg Tablet, 40 MG PO TID, (Reported) Entered as Reported by: SAMEER BUTTS on 10/14/20 1536 Hydrochlorothiazide (Hydrochlorothiazide) 25 Mg Tablet, 25 MG PO DAILY, (Reported) Entered as Reported by: SAMEER BUTTS on 10/14/20 1536 Insulin Aspart (Insulin Aspart) 100 Unit/1 Ml Vial, UNIT SQ AC, (Reported) Entered as Reported by: ALIX RIOS on 12/18/20 0239 Ipratropium/Albuterol Sulfate (Iprat-Albut 0.5-3(2.5) mg/3 ml) 3 Ml Ampul.neb, 3 ML IH Q4H PRN for SHORTNESS OF BREATH Prescribed by: LEATHA ENGLISH on 01/21/21 1737 Levothyroxine Sodium (Levothyroxine Sodium) 200 Mcg Tablet, 200 MCG PO DAILY, (Reported) Entered as Reported by: SAMEER BUTTS on 10/14/20 1536 Losartan Potassium (Losartan Potassium) 100 Mg Tablet, 100 MG PO DAILY, (Reported) Entered as Reported by: SAMEER BUTTS on 10/14/20 1536 Metoprolol Tartrate (Metoprolol Tartrate) 100 Mg Tablet, 100 MG PO BID, (Reported) Entered as Reported by: LUIS MATHIS on 08/04/18 1734 Naproxen (Naproxen) 500 Mg Tablet, 500 MG PO BID, (Reported) Entered as Reported by: SAMEER BUTTS on 10/14/20 153 Nitrofurantoin Monohyd/M-Cryst (Nitrofurantoin [place]-Mcr 100 mg) 100 Mg Capsule, 100 MG PO BID Prescribed by: DEMARCO LPOEZ on 12/21/20 1150 Ondansetron (Ondansetron Odt) 4 Mg Tab.rapdis, 4 MG SL Q8H PRN for NAUSEA-1ST LINE, (Reported) Entered as Reported by: ALIX RIOS on 12/18/20 0239 Pantoprazole Sodium (Pantoprazole Sodium) 40 Mg Tablet.dr, 40 MG PO DAILY, (Reported) Entered as Reported by: SAMEER BUTTS on 10/14/20 153 Potassium Chloride (Potassium Chloride) 20 Meq Tablet.er, 20 MCG PO DAILY, (Reported) Entered as Reported by: ALIX RIOS on 12/18/20 0239 Pramipexole Di-HCl (Pramipexole Dihydrochloride) 1 Mg Tablet, 1 MG PO HS, (Reported) Entered as Reported by: SAMEER BUTTS on 10/14/20 1536 Pregabalin (Pregabalin) 200 Mg Capsule, 200 MG PO BID, (Reported) Entered as Reported by: SAMEER BUTTS on 11/19/20 1054 Solifenacin Succinate (Vesicare) 5 Mg Tablet, 5 MG PO DAILY, (Reported) Entered as Reported by: ALIX RIOS on 12/18/20 0304 Sumatriptan Succinate (Sumatriptan Succinate) 100 Mg Tablet, 100 MG PO UD PRN for MIGRAINE, (Reported) Entered as Reported by: LUIS MATHIS on 08/04/181733 [bipap] , EA INH DAILY PRN, (DME) Prescribed by: LEATHA ENGLISH on 01/21/211736 Review of Systems Review of Systems Constitutional: no symptoms reported, see HPI Respiratory: see HPI, dyspnea on exertion, short of breath Cardiovascular: no symptoms reported, see HPI; No chest pain Gastrointestinal: no symptoms reported, see HPI All Other Systems Reviewed Negative Unless Noted: Yes Past Dlxipfq-Sggqyn-Dtejxb Hx Patient Social History Tobacco Use?: No Smoking Status: Unknown if Ever Smoked Use of E-Cig and/or Vaping dev: No Substance use?: No Alcohol Use?: No Pt feels they are or have been: No Immunizations Up To Date Tetanus Booster (TDap): Unknown PED Vaccines UTD: Yes First/Initial COVID19 Vaccinat: AUGUST 2020 Second COVID19 Vaccination Mamadou: SEPTEMBER 2020 COVID19 Vaccine Bath House Attendant: ERA Seasonal Allergies Seasonal Allergies: No Past Medical History Surgery/Hospitalization HX: COPD, CHF Surgeries: Yes Cardiac, Section, Gallbladder, Orthopedic, Tubal Ligation Respiratory: Yes (RESTRICTIVE LUNG DZ;LEFT CHEST DEFORMITY;CHF;CHRONIC RESP FAILURE-3L/NC) Asthma, Pneumonia, Chronic Bronchitis, Sleep Apnea, COPD Currently Using CPAP: No Currently Using BIPAP: No Cardiac: Yes (CHF; CARDIAC ABLATION FOR SVT ) Coronary Artery Disease, Heart Attack, High Cholesterol, Hypertension, Irregular Heartbeat Neurological: Yes Headaches /Migraines, Neuropathy, Seizure Disorder, Stroke Reproductive Disorders: No PSYCHOLOGY TECH History: Tubal Ligation Genitourinary: Yes UTI-Chronic Gastrointestinal: Yes (Reports celiac disease) Ulcer, Gall Bladder Disease Musculoskeletal: Yes (BACK SURGERY FOR SCOLIOSIS; LEFT FOOT SURGERY) Fibromyalgia, Scoliosis, Chronic Back Pain Endocrine: Yes (SUPER MORBID OBESITY--> 500LBS) Diabetes, Insulin dep, Hypothyroidsim HEENT: Yes (EDENTULOUS) Cancer: No Psychosocial: Yes Anxiety, Depression Integumentary: No Blood Disorders: No Family Medical History Reviewed Nursing Family Hx SOCIAL HISTORY: -ETOH--OCCASIONAL USE -DRUGS--HX OF IV METHAMPHETAMINE USE -SMOKED 1/2 PPD FROM AGE 19 TO 23 PAST SURGICAL HISTORY: -BACK SURGERY FOR SCOLIOSIS AGE 15 -LEFT FOOT RECONSTRUCTION BECAUSE OF PROBLEM WITH ARCH OF FOOT - X 2 -EGD -CARDIAC ABLATION FOR SVT -CHOLECYSTECTOMY -BILATERAL TUBAL LIGATION ADDITIONAL PAST MEDICAL HISTORY: -CLAIMS SHE HAD A "STRESS HEART ATTACK" AT AGE 27--NO CARDIAC CATH, BUT HAD STRESS TEST AND ECHOCARDIOGRAM -SEIZURES DX AGE 33 -HAD POSSIBLE STROKE WITH ONE SEIZURE-HAD LEFT SIDE PARALYSIS FOR 2 WEEKS, COMPLETELY RESOLVED -PERIPHERAL NEUROPATHY -CHRONIC LEFT FOOT NUMBNESS SINCE LEFT FOOT SURGERY -IMPAIRED MOBILITY--HAS USED WALKER, WHEELCHAIR AND MOTORIZED WHEELCHAIR PAST SURCI Physical Exam Vital Signs Vital Signs - First Documented 04/05/21 04/05/21 14:08 15:31 Temp 35.9 Pulse 97 Resp 22 B/P (MAP) 175/116 (135) Pulse Ox 98 O2 Delivery Nasal Cannula O2 Flow Rate 1.00 Capillary Refill : Height, Weight, BMI Height: 5'0.00" Weight: 389lbs. 0.4oz. 176.055191qy; 72.00 BMI Method:Stated General Appearance: WD/WN, Mild Distress (SOA chronic, no worse than baseline), Obese HEENT: PERRL/EOMI, TMs Normal, Normal ENT Inspection, Pharynx Normal Neck: Full Range of Motion, Normal Inspection, Non Tender, Supple Respiratory: Chest Non Tender, Decreased Breath Sounds Cardiovascular: Regular Rate, Rhythm; No No Edema Gastrointestinal: Normal Bowel Sounds, Non Tender, Soft, Distended Extremity: Normal Capillary Refill; No Calf Tenderness; Pedal Edema (3+) Neurologic/Psychiatric: Alert, Oriented x3, No Motor/Sensory Deficits, Normal Mood/Affect Skin: Normal Color, Warm/Dry, Other (small healed ucler to back of bilat legs. No other pressure ulcers noted. ) Progress/Results/Core Measures Suspected Sepsis SIRS Temperature: Pulse: 97 Respiratory Rate: 22 Laboratory Tests 04/05/21 14:10: White Blood Count 5.8 Blood Pressure 175 /116 Mean: 107 Laboratory Tests 04/05/21 14:10: Creatinine 0.63, Platelet Count 366, Total Bilirubin 0.5 Results/Orders Lab Results Laboratory Tests Test 04/05/21 14:10 04/05/21 14:16 04/05/21 15:05 Range/Units White Blood Count 5.8 4.3-11.0 10^3/uL Red Blood Count 4.11 3.80-5.11 10^6/uL Hemoglobin 11.8 11.5-16.0 g/dL Hematocrit 38 35-52 % Mean Corpuscular Volume 93 80-99 fL Mean Corpuscular Hemoglobin 29 25-34 pg Mean Corpuscular Hemoglobin Concent 31 L 32-36 g/dL Red Cell Distribution Width 17.0 H 10.0-14.5 % Platelet Count 366 130-400 10^3/uL Mean Platelet Volume 9.3 9.0-12.2 fL Immature Granulocyte % (Auto) 1 % Neutrophils (%) (Auto) 47 42-75 % Lymphocytes (%) (Auto) 37 12-44 % Monocytes (%) (Auto) 11 0-12 % Eosinophils (%) (Auto) 5 0-10 % Basophils (%) (Auto) 1 0-10 % Neutrophils # (Auto) 2.8 1.8-7.8 10^3/uL Lymphocytes # (Auto) 2.1 1.0-4.0 10^3/uL Monocytes # (Auto) 0.6 0.0-1.0 10^3/uL Eosinophils # (Auto) 0.3 0.0-0.3 10^3/uL Basophils # (Auto) 0.0 0.0-0.1 10^3/uL Immature Granulocyte # (Auto) 0.0 0.0-0.1 10^3/uL Sodium Level 140 135-145 MMOL/L Potassium Level 4.1 3.6-5.0 MMOL/L Chloride Level 104 98-107 MMOL/L Carbon Dioxide Level 26 21-32 MMOL/L Anion Gap 10 5-14 MMOL/L Blood Urea Nitrogen 12 7-18 MG/DL Creatinine 0.63 0.60-1.30 MG/DL Estimat Glomerular Filtration Rate 101 BUN/Creatinine Ratio 19 Glucose Level 96 70-105 MG/DL Calcium Level 9.2 8.5-10.1 MG/DL Corrected Calcium 9.4 8.5-10.1 MG/DL Total Bilirubin 0.5 0.1-1.0 MG/DL Aspartate Amino Transf (AST/SGOT) 45 H 5-34 U/L Alanine Aminotransferase (ALT/SGPT) 47 0-55 U/L Alkaline Phosphatase 100 40-136 U/L B-Type Natriuretic Peptide 40.4 <100.0 PG/ML Total Protein 7.0 6.4-8.2 GM/DL Albumin 3.8 3.2-4.5 GM/DL Glucometer 93 70-110 MG/DL Blood Gas Puncture Site LEFT RADIAL Blood Gas Patient Temperature 35.9 Arterial Blood pH 7.41 7.37-7.43 Arterial Blood Partial Pressure CO2 48 H 35-45 MMHG Arterial Blood Partial Pressure O2 57 L 79-93 MMHG Arterial Blood HCO3 30 H 23-27 MMOL/L Arterial Blood Total CO2 31.5 H 21.0-31.0 MMOL/L Arterial Blood Oxygen Saturation 90 L 94-100 % Arterial Blood Base Excess 5.2 H -2.5-2.5 MMOL/L Jaime Test POSITIVE Blood Gas Ventilator Setting NO Blood Gas Inspired Oxygen RA My Orders Orders - GAVINO PAVON BNP (04/05/21 14:38) Cbc With Automated Diff (04/05/21 14:38) Comprehensive Metabolic Panel (04/05/21 14:38) Arterial Blood Gas (04/05/21 15:05) Arterial Blood Draw (04/05/21 ) Metoprolol Succinate (Xl) Tab (Toprol Xl (04/05/21 15:16) Heparin (Central Iv Flush) (Heparin (Corry (04/05/21 15:33) Furosemide Injection (Lasix Injection) (04/05/21 15:33) Vital Signs/I&O 04/05/21 04/05/21 04/05/21 04/05/21 14:08 14:30 14:38 15:13 Temp 35.9 Pulse 97 92 Resp 22 20 B/P (MAP) 175/116 (135) 161/80 163/85 Pulse Ox 98 97 92 O2 Delivery Nasal Cannula Nasal Cannula Room Air Room Air 04/05/21 04/05/21 15:31 15:42 Pulse 91 91 Resp 20 B/P (MAP) 152/79 152/79 Pulse Ox 93 95 O2 Delivery Room Air O2 Flow Rate 1.00 2.00 Capillary Refill : Blood Pressure Mean: 107 Progress Note : Time: 14:10 Progress Note Attempted to reach Yuan Vance by phone to discuss labs for patient and need for ED visit. No return call. Will obtain labs and determine plan of care. Patient has not taken her morning meds, will give Metoprolol 100 mg po. Patient would like to wait and take Lasix closer to the time to leave. 1445 Spoke to , they are doing well at home with taking care of patient. Concerned because they can't get her biPap. Upset they were sent by EMS to ED for labs that could have been done outpatient. They do not have a pulse ox at home, her has misplaced it. 1515 awaiting ABGs, she has maintained SaO2 of 94-97% on Room Air. Will give Lasix 20 mg IV prior to d/c. 1530 ABGs improved from last admission. Reviewed with patient and . No other requests at this time. Patient able to ambulate, with minimal assistance from bed to W/C and W/C to car. Stressed importance to not keep her SaO2 at 100%, titrate her O2 so she is 90-95%. Discharge instructions and return precautions reviewed with the patient and . Departure Impression Primary Impression: Morbid obesity Additional Impressions: Diabetes Qualified Codes: E11.9 - Type 2 diabetes mellitus without complications CHF (congestive heart failure) Qualified Codes: I50.9 - Heart failure, unspecified Edema Qualified Codes: R60.1 - Generalized edema Disposition: HOME, SELF-CARE Condition: Stable Departure-Patient Inst. Decision time for Depature: 15:30 Referrals: NO,LOCAL PHYSICIAN (PCP/Family) Primary Care Physician Patient Instructions: Dependent Edema (DC) Copy Copies To 1: TAYLOR CLINTON AMY ARNP Apr 05, 2021 15:04
[2021-04-05 15:13] LABS: ABG BASE EXCESS 5.2 MMOL/L (-2.5-2.5); ABG OXYGEN SATURATION 90 % (94-100); ABG PCO2 48 MMHG (35-45); ABG PH 7.41 (7.37-7.43); ABG PO2 57 MMHG (79-93); ABG TCO2 31.5 MMOL/L (21.0-31.0)
[2021-04-05 15:14] LABS: ALLENS TEST POSITIVE; INSPIRED O2 RA; PATIENT TEMP 35.9; VENTILATOR NO
[2021-04-05] MEDS ORDERED: meTOprolol SUCCINATE 100 MG (TOPROL XL) TAB PO STA (15:16)
[2021-04-05] MEDS ORDERED: HEParin (CENTRAL IV FLUSH) 500 UNIT/5 ML SYR IV STA (15:33)
[2021-04-05 15:42] VITALS: BP 152/79
== END 2021-04-05 15:42 | disposition home or self-care (01) ==
LOC: EDUNIT# 14:08 → ER 14:09
DX: E11.9 Type 2 diabetes mellitus without complications (principal); I11.0 Hypertensive heart disease with heart failure; I50.9 Heart failure, unspecified; G47.30 Sleep apnea, unspecified; J44.9 Chronic obstructive pulmonary disease, unspecified; I25.2 Old myocardial infarction; E78.00 Pure hypercholesterolemia, unspecified; I25.10 Atherosclerotic heart disease of native coronary artery without angina pectoris; G40.909 Epilepsy, unspecified, not intractable, without status epilepticus; G43.909 Migraine, unspecified, not intractable, without status migrainosus; E66.01 Morbid (severe) obesity due to excess calories; R60.9 Edema, unspecified; E03.9 Hypothyroidism, unspecified; Z86.73 Personal history of transient ischemic attack (TIA), and cerebral infarction without residual deficits; Z68.45 Body mass index [BMI] 70 or greater, adult; Z79.4 Long term (current) use of insulin; Z79.82 Long term (current) use of aspirin; Z79.899 Other long term (current) drug therapy; Z79.890 Hormone replacement therapy
CPT/HCPCS: 36415; 36600; 80053; 82805; 82947; 83880; 85025

== ENCOUNTER 2021-06-28 17:16 | Emergency (ER) | payer MEDICAID ==
[~2021-06-28] VITALS: Ht 152.4 cm; Wt 181.4 kg
--- OUTSIDE RECORDS SUMMARY | 2021-06-28 17:20 | XMS REPORT | Clinical Summary ---
Author Author [facility] Organization [facility] Address Unknown Phone Unavailable Care Team Providers Care Clerk Television Production Name Role Phone Danis Oviedo RN Unavailable Unavailable Todd Lee MD Unavailable Mendez Kaye MD Unavailable Unavailable Araceli Barba DO PCP Source Comments Some departments are not documenting in the electronic medical record. If you d o not see the information that you expected, contact Release of Information in [facility] Information Management department at [phone] for further assistan ce in locating additional records.[facility] Allergies Comments Active Allergy Reactions Severity [...] 9 Esophagitis mouth twice daily. Active Insulin [place]worth Use as 100 each 3 (Disposable) 31 gauge x directed with 9 1" ndleIndications: victoza Type 2 diabetes mellitus with hyperglycemia, with long-term current use of insulin ([facility]) Active atorvastatin (LIPITOR) 40 Take one 90 tablet 1 mg tabletIndications: tablet by 9 Type 2 diabetes mellitus mouth at with hyperglycemia, with bedtime long-term current use of daily. insulin ([facility]), Other hyperlipidemia Active baclofen (LIORESAL) 10 mg Take one 90 tablet 1 tabletIndications: Left tablet by 9 foot pain mouth at bedtime as needed. Active blood sugar diagnostic Use one strip 400 strip 3 test stripIndications: as directed 9 Type 2 diabetes mellitus before meals with hyperglycemia, with and at long-term current use of bedtime. insulin ([facility]) Active diclofenac (VOLTAREN) 1 % Apply two [...] the diskIndications: COPD lungs daily. with asthma ([facility]) Active furosemide (LASIX) 40 mg Take one 180 tablet 1 1 tabletIndications: tablet by 9 Chronic heart failure, mouth twice unspecified heart failure daily. type ([facility]) Active hydrOXYzine (ATARAX) 25 Take one 90 tablet 1 mg tabletIndications: tablet by 9 Insomnia, unspecified mouth at type bedtime as needed for Itching. Active Insulin Syringe-Needle Use as 100 each 3 U-100 (BD INSULIN SYRINGE directed with 9 ULTRA-FINE) 0.5 mL 31 insulin gauge x 5/16" syrgIndications: Type 2 diabetes mellitus with hyperglycemia, with long-term current use of insulin ([facility]) Active lancets 32 gauge 32 gauge Use [...] hyperglycemia, with long-term current use of insulin ([facility]) Active losartan (COZAAR) 50 mg Take one 90 tablet 1 tabletIndications: tablet by 9 Essential hypertension, mouth daily. Type 2 diabetes mellitus with hyperglycemia, with long-term current use of insulin ([facility]) Active metoprolol tartrate Take one 180 tablet 1 (LOPRESSOR) 100 mg tablet by 9 tabletIndications: SVT mouth twice (supraventricular daily. tachycardia) ([facility]) Active pantoprazole DR Take one 90 tablet [...] Take with unspecified heart failure food. type ([facility]), Dyspnea, unspecified type, Weight gain Active NOVOLOG U-100 INSULIN INJECT 30 30 mL 3 08/31 ASPART 100 unit/mL UNITS 0 injectionIndications: SUBCUTANEOUSL Type 2 diabetes mellitus Y THREE TIMES with hyperglycemia, with A DAY WITH long-term current use of MEALS insulin ([facility]) Active insulin detemir U-100(+) INJECT 33 20 [...] original. Presumed HFpEF admitted August 2017 to [facility] with edema dyspnea and chest pain [...] deficiency 11/22/2018 Overview: Formatting of this note is different fr om the original. Vitamin D level 12.8 -now [...] teenager ABLATION OF DYSRHYTHMIC For SVT at [facility] FOCUS COLONOSCOPY w/EGD Medical History Medical History Date Comments Htn Neoplasm of unspecified nature, site unspecified SVT (supraventricular tachycardia) ([facility]) Unspecified mental or behavioral problem Scoliosis Unspecified disease of respiratory COPD and ILD; ch ronic resp failure system Back pain Wound healing, delayed Murmur As a child Heart failure with preserved ejection fraction (HCC) Hyperlipidemia Myocardial infarction ([facility]) 1998 "Mild" Arthritis Left knee Fibromyalgia Asthma Using inhalers as needed, n ot daily COPD (chronic obstructive pulmonary Uses 2LNC w/exe rtion & at night disease) ([facility]) Type 2 diabetes mellitus with 11/22/2018 hyperglycemia, with long-term current use of insulin ([facility]) Gastrointestinal disorder Takes Protonix daily for inflammed esophagus, history of peptic ulcer ~2004 Fatty liver Hypothyroid Epilepsy ([facility]) Depakote, seizure 03/24/19, "grand mal" as per [...] FOOT EXAM 1990 HEPATITIS C SCREENING 1990 CERVICAL CANCER SCREENING 1993 BREAST CANCER [...] Phone Address Plan / Dates Group Medicaid [facility] [employer] [id number] 2018-P [address] [place] [address] Advance Directives Patient Printer'S Devil Explanation Type Date Recorded Advance Directive/DPOA Care Teams Start Date End Date Clerk Television Production Relationship Specialty 11/07/19 Araceli Barba DO PCP - General Internal [address] [place] [address] 05/02/10 Danis Oviedo, RN 05/02/10 Todd Lee MD [address] [place] [address] 05/02/10 Mendez Kaye MD RETIRED 04/30/2015
--- OUTSIDE RECORDS SUMMARY | 2021-06-28 17:20 | XMS REPORT | Encounter Summary ---
Author Author [facility] Organization [facility] Address Unknown Phone Unavailable Care Team Providers Care Hobbing Machine Operator Name Role Phone Jourdan Turk MD Unavailable Najma Ng MD Unavailable Araceli Barba DO PCP Encounter Details Care Team Description Date Type Department Araceli Barba DO [address] [place], [place] [id number] [email or web address] 05/30/2021 Chart Note Cotton O`Kulwinder Inter [facility] - [place] [address] [place] [id number] Social History Date Tobacco Use Types Packs/Day Years Used Quit: 07/02/1989 Former Smoker 0 Smokeless Tobacco: Never Used Comments: Quit smoking: Year stopped 199 1/Number of yrs: /Packs per day: /Pack years: [...] more drinks on one Never 09/10/2020 occasion? Comment: Very rare occasion 08/21/2016 Social Isolation Answer Date Recorded In a typical week, how many times do you talk on Three nick es a week 06/18/2019 the phone with family, friends, or neig hbors? How often do you get together with friends or Three times a week 06/18/2019 relatives? How often do you attend yarsani or tenriism Never 06/18/2019 services? Do you belong to any clubs or organizations such No 06/18/2019 as yarsani groups, unions, fraternal or athletic groups, or [...] gettin g things needed for daily living? Housing Stability Answer Date Recorded In the last 12 months, was there a time when you No 09/10/2020 were not able to pay the mortgage or re nt on time? In the last 12 months, how many places have you 3 09/10/2020 lived? In the last 12 months, was there a time when you No 09/10/2020 did not have a steady place to sleep or slept in a [facility] (including now)? Control [employer] Comments Sexually Active Tubal Ligation Male Yes Sex Assigned at Date Recorded Female 01/02/2020 4:52 AM CDT Industry Job Start Date Occupation Not on file Not on file Not on file documented as of this encounter Miscellaneous Notes * Progress Notes - Eve Ledbetter MA - 05/30/2021 2:19 PM ELEVATOR CONDUCTOR Fax received from [facility] ED . Sent to provider for review. ATOR CONDUCTOR documented in this encounter Plan of Treatment Not on filedocumented as of this encounter Goals Goal Patient Associated Recent Progress Patient-Stat [...] 3. Things are improving 4. Very well! documented as of this encounter Procedures Comments Procedure Name Priority Date/Time Associated Diag nosis EXTERNAL RECORD ORDER Routine 05/28/2021 documented in this encounter Visit Diagnoses Not on filedocumented in this encounter Care Teams Start Date End Date Hobbing Machine Operator Relationship Specialty 02/11/20 Araceli Barba DO PCP - General Internal [address] [id number] [email or web address] 08/21/16 Jourdan Turk MD Cardiology [address] [place], [place] [phone] [email or web address] 04/05/17 Najma Ng MD Pulmonology [address] [facility] ([facility] [place], [place] [id number] [email or web address] [place] as of this encounter
--- OUTSIDE RECORDS SUMMARY | 2021-06-28 17:20 | XMS REPORT | Clinical Summary ---
Author Author [facility] Address Unknown Phone Unavailable Care Team Providers Care Communications Operator Name Role Phone Jourdan Turk MD [...] from the original. Reviewed Discharge Summary from [facility] Spoke with [facility] in [place], [place] She states that they have had provider following [place] while she has been living down in [place] Discussed that she will take care and [...] the original. Order for pads Sent to [facility] Medical Nausea 10/29/2019 Last Assessment & Plan: [...] weight gain Echo repeated 09/2020 - at [facility] Normal EF Will continue lasix BID [...] taking medication to include diuretics and to pear picker a new blood pressure cuff fo [...] unspecified 03/05/2017 Other specified cardiac dysrhythmias(427.89) 2016 Encounters Care Team Description Date Type Specialty Araceli Barba DO 05/30/2021 Chart Note Internal Medicine from Last 3 Months Immunizations Name Administration Dates Next Due COVID-19 [...] 06/18/2019 relatives? How often do you attend [employer] or zoroastrian Never 06/18/2019 services? Do you belong to any clubs or organizations such No 06/18/2019 as pres[employer] groups, unions, fraternal or athletic groups, or [...] place to sleep or slept in a long-term (including now)? Control Partners Comments Sexually Active [...] Have 3 meals a day Diet No FelixMariajose, RD LD CDE Note: 1. Didn't try 2. Could do better 3. Things are improving 4. Very well! Monitoring - Test blood Lifestyle No Marito cota, glucose Mariajose Hernandez, RD LD CDE Note: 1. Didn't try 2. Could do better 3. Things are improving 4. Very well! Increase physical activity Lifestyle No Reagan deepakMariajose, RD LD CDE Note: 1. Didn't try 2. Could do better 3. Things are improving 4. Very well! Procedures Comments Procedure Name Priority Date/Time Associated Diag nosis EXTERNAL RECORD ORDER Routine 05/28/2021 from Last 3 Months Results * External Record Order (05/28/2021) Narrative from Last 3 Months Insurance Type Payer Benefit Subscriber ID Effective Phone Address Plan / Dates Group [place] [id number] [address] [address] Advance Directives For more information, please contact: [phone] Patient Compliance Assistant Explanation Type Date Recorded Advance Directives and Living Will Power of Manufactured Buildings Supervisor Date Inactivated Comments Code Status Date Activated Full Code 06/22/2019 12:52 PM 06/22/2019 12:52 PM Full Code 06/17/2019 9:46 PM 06/17/2019 9:46 PM Full Code 06/17/2019 6:49 PM Care Teams Start Date End Date Communications Operator Relationship Specialty 02/11/20 Araceli Barba, PCP - General Internal [address] [place] [address] [email or web address] 08/21/16 Jourdan Turk MD Cardiology [address] [place] [address] 04/05/17 Najma Ng MD Pulmonology [address] [facility] ([facility]) [place] [address] [email or web address]
[2021-06-28 17:47] LABS: BASOPHILS % (AUTO) 0 % (0-10); EOSINOPHILS # (AUTO) 0.4 10^3/uL (0.0-0.3); EOSINOPHILS % (AUTO) 4 % (0-10); HEMATOCRIT 39 % (35-52); HEMOGLOBIN 11.6 g/dL (11.5-16.0); LYMPHOCYTES # (AUTO) 1.7 10^3/uL (1.0-4.0); LYMPHOCYTES % (AUTO) 19 % (12-44); MEAN CORPUSCULAR HEMOGLOBIN 28 pg (25-34); MEAN CORPUSCULAR HGB CONC 30 g/dL (32-36); MEAN CORPUSCULAR VOLUME 95 fL (80-99); MEAN PLATELET VOLUME 9.3 fL (9.0-12.2); MONOCYTES # (AUTO) 0.7 10^3/uL (0.0-1.0); MONOCYTES % (AUTO) 8 % (0-12); NEUTROPHILS % (AUTO) 69 % (42-75); PLATELET COUNT 339 10^3/uL (130-400); WHITE BLOOD COUNT 8.8 10^3/uL (4.3-11.0)
--- NOTE | 2021-06-28 17:49 | ED General ---
General Chief Complaint: Cough/Cold/Flu Symptoms Stated Complaint: COUGH Source of Information: Patient Exam Limitations: No Limitations (NATE BASSETT APRN) History of Present Illness Date Seen by Provider: Jun 28, 2021 Time Seen by Provider: 17:47 Initial Comments to ER by EMS with reports of productive cough for a few days. No fevers or chills. She is Covid vaccinated. Chronically oxygen dependent at 3 L per nasal cannula. Timing/Duration: 1-2 Days Severity: Moderate Associated Systoms: Denies Symptoms (NATE BASSETT APRN) Allergies and Home Medications Allergies Coded Allergies: [place] And Derivatives (Verified Allergy, Intermediate, 12/19/20) MAKES TONGUE BREAK OUT duloxetine (Verified Allergy, Unknown, 03/17/20) tramadol (Verified Allergy, Unknown, 03/17/20) butorphanol (Unverified Adverse Reaction, Severe, 08/04/18) HALLUCINATIONS Penicillins (Unverified Adverse Reaction, Unknown, NAUSEA, 08/04/18) Patient Home Medication List Home Medication List Reviewed: Yes (NATE BASSETT APRN) Albuterol Sulfate (Albuterol Sulfate) 2.5 Mg/3 Ml Vial.neb, 2.5 MG INH TID PRN for SHORTNESS OF BREATH, (Reported) Entered as Reported by: LUIS MATHIS on 08/04/18 1734 Albuterol Sulfate (Proventil Hfa) 6.7 Gm Hfa.aer.ad, 2 PUFF INH Q6H PRN for SHORTNESS OF BREATH, (Reported) Entered as Reported by: LUIS MATHIS on 08/04/18 1734 Aspirin (Aspirin EC) 81 Mg Tablet.dr, 81 MG PO DAILY, (Reported) Entered as Reported by: SAMEER BUTTS on 11/19/20 1054 Atorvastatin Calcium (Atorvastatin Calcium) 40 Mg Tablet, 40 MG PO HS, (Reported) Entered as Reported by: LUIS MATHIS on 08/04/18 1734 Baclofen (Baclofen) 10 Mg Tablet, 10 MG PO HS, (Reported) Entered as Reported by: SAMEER BUTTS on 10/14/20 1536 Cefuroxime Axetil (Cefuroxime) 250 Mg Tablet, 250 MG PO BID Prescribed by: NATE BASSETT on 06/28/21 1855 Diclofenac Sodium (Diclofenac Sodium) 100 Gm Gel..gram., 100 GM TP QID PRN for PAIN-MILD (1-4), (Reported) Entered as Reported by: SHERIF GUPTA on 12/20/20 1444 Divalproex Sodium (Divalproex Sodium ER) 500 Mg Tab.er.24h, 500 MG PO BID, (Reported) Entered as Reported by: LUIS MATHIS on 08/04/18 1734 Furosemide (Furosemide) 40 Mg Tablet, 40 MG PO TID, (Reported) Entered as Reported by: SAMEER BUTTS on 10/14/20 1536 Hydrochlorothiazide (Hydrochlorothiazide) 25 Mg Tablet, 25 MG PO DAILY, (Reported) Entered as Reported by: SAMEER BUTTS on 10/14/20 1536 Insulin Aspart (Insulin Aspart) 100 Unit/1 Ml Vial, UNIT SQ AC, (Reported) Entered as Reported by: ALIX RIOS on 12/18/20 0239 Ipratropium/Albuterol Sulfate (Iprat-Albut 0.5-3(2.5) mg/3 ml) 3 Ml Ampul.neb, 3 ML IH Q4H PRN for SHORTNESS OF BREATH Prescribed by: LEATHA ENGLISH on 01/21/21 1737 Levothyroxine Sodium (Levothyroxine Sodium) 200 Mcg Tablet, 200 MCG PO DAILY, (Reported) Entered as Reported by: SAMEER BUTTS on 10/14/20 153 Losartan Potassium (Losartan Potassium) 100 Mg Tablet, 100 MG PO DAILY, (Reported) Entered as Reported by: SAMEER BUTTS on 10/14/20 1536 Metoprolol Tartrate (Metoprolol Tartrate) 100 Mg Tablet, 100 MG PO BID, (Reported) Entered as Reported by: LUIS MATHIS on 08/04/18 1734 Naproxen (Naproxen) 500 Mg Tablet, 500 MG PO BID, (Reported) Entered as Reported by: SAMEER BUTTS on 10/14/20 1536 Nitrofurantoin Monohyd/M-Cryst (Nitrofurantoin [place]-Mcr 100 mg) 100 Mg Capsule, 100 MG PO BID Prescribed by: DEMARCO LOPEZ on 12/21/20 1150 Ondansetron (Ondansetron Odt) 4 Mg Tab.rapdis, 4 MG SL Q8H PRN for NAUSEA-1ST LINE, (Reported) Entered as Reported by: ALIX RIOS on 12/18/20 0239 Pantoprazole Sodium (Pantoprazole Sodium) 40 Mg Tablet.dr, 40 MG PO DAILY, (Reported) Entered as Reported by: SAMEER BUTTS on 10/14/20 1536 Potassium Chloride (Potassium Chloride) 20 Meq Tablet.er, 20 MCG PO DAILY, (Reported) Entered as Reported by: ALIX RIOS on 12/18/20 0239 Pramipexole Di-HCl (Pramipexole Dihydrochloride) 1 Mg Tablet, 1 MG PO HS, (Reported) Entered as Reported by: SAMEER BUTTS on 10/14/20 1536 Prednisone (Prednisone) 20 Mg Tab, 40 MG PO DAILY Prescribed by: NATE BASSETT on 06/28/21 1855 Pregabalin (Pregabalin) 200 Mg Capsule, 200 MG PO BID, (Reported) Entered as Reported by: SAMEER BUTTS on 11/19/20 1054 Solifenacin Succinate (Vesicare) 5 Mg Tablet, 5 MG PO DAILY, (Reported) Entered as Reported by: ALIX RIOS on 12/18/20 0304 Sumatriptan Succinate (Sumatriptan Succinate) 100 Mg Tablet, 100 MG PO UD PRN for MIGRAINE, (Reported) Entered as Reported by: LUIS MATHIS on 08/04/18 1734 [bipap] , EA INH DAILY PRN, (DME) Prescribed by: LEATHA ENGLISH on 01/21/21 1737 Review of Systems Review of Systems Constitutional: see HPI EENTM: see HPI Respiratory: no symptoms reported Cardiovascular: no symptoms reported Genitourinary: no symptoms reported Musculoskeletal: no symptoms reported Skin: no symptoms reported Psychiatric/Neurological: No Symptoms Reported Hematologic/Lymphatic: No Symptoms Reported (NATE BASSETT APRN) Past Ystidha-Uaegwo-Djaxqk Hx Patient Social History Tobacco Use?: No Use of E-Cig and/or Vaping dev: No Substance use?: No Alcohol Use?: Yes Alcohol Frequency: Once in a while Pt feels they are or have been: No (NATE BASSETT APRN) Immunizations Up To Date Tetanus Booster (TDap): Unknown PED Vaccines UTD: Yes Influenza Vaccine Up-to-Date: Yes; Up-to-Date First/Initial COVID19 Vaccinat: AUGUST 2020 Second COVID19 Vaccination Mamadou: SEPTEMBER 2020 Third COVID19 Vaccination Date: AUGUST 2020 (NATE BASSETT APRN) Seasonal Allergies Seasonal Allergies: No (NATE BASSETT APRN) Past Medical History Surgery/Hospitalization HX: COPD, CHF Surgeries: Yes Cardiac, Section, Gallbladder, Orthopedic, Tubal Ligation Respiratory: Yes (RESTRICTIVE LUNG DZ;LEFT CHEST DEFORMITY;CHF;CHRONIC RESP FAILURE-3L/NC) Asthma, Pneumonia, Chronic Bronchitis, Sleep Apnea, COPD Currently Using CPAP: No Currently Using BIPAP: No Cardiac: Yes (CHF; CARDIAC ABLATION FOR SVT ) Coronary Artery Disease, Heart Attack, High Cholesterol, Hypertension, Irregular Heartbeat Neurological: Yes Headaches /Migraines, Neuropathy, Seizure Disorder, Stroke Reproductive Disorders: No 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: Tubal Ligation Genitourinary: Yes UTI-Chronic Gastrointestinal: Yes (Reports celiac disease) Ulcer, Gall Bladder Disease Musculoskeletal: Yes (BACK SURGERY FOR SCOLIOSIS; LEFT FOOT SURGERY) Fibromyalgia, Scoliosis, Chronic Back Pain Endocrine: Yes (SUPER MORBID OBESITY--> 500LBS) Diabetes, Insulin dep, Hypothyroidsim HEENT: Yes (EDENTULOUS) Cancer: No Psychosocial: Yes Anxiety, Depression Integumentary: No Blood Disorders: No (NATE BASSETT APRN) Family Medical History SOCIAL HISTORY: -ETOH--OCCASIONAL USE -DRUGS--HX OF IV METHAMPHETAMINE USE -SMOKED 1/2 PPD FROM AGE 19 TO 23 PAST SURGICAL HISTORY: -BACK SURGERY FOR SCOLIOSIS AGE 15 -LEFT FOOT RECONSTRUCTION BECAUSE OF PROBLEM WITH ARCH OF FOOT - X 2 -EGD -CARDIAC ABLATION FOR SVT -CHOLECYSTECTOMY -BILATERAL TUBAL LIGATION ADDITIONAL PAST MEDICAL HISTORY: -CLAIMS SHE HAD A "STRESS HEART ATTACK" AT AGE 27--NO CARDIAC CATH, BUT HAD STRESS TEST AND ECHOCARDIOGRAM -SEIZURES DX AGE 33 -HAD POSSIBLE STROKE WITH ONE SEIZURE-HAD LEFT SIDE PARALYSIS FOR 2 WEEKS, COMPLETELY RESOLVED -PERIPHERAL NEUROPATHY -CHRONIC LEFT FOOT NUMBNESS SINCE LEFT FOOT SURGERY -IMPAIRED MOBILITY--HAS USED WALKER, WHEELCHAIR AND MOTORIZED WHEELCHAIR PAST SURCI (NATE BASSETT APRN) Physical Exam Vital Signs Vital Signs - First Documented 06/28/21 17:16 Temp 36.7 Pulse 95 Resp 19 B/P (MAP) 204/101 (135) Pulse Ox 99 O2 Delivery Room Air O2 Flow Rate 3.00 (RADU FOY MD) Vital Signs Capillary Refill : Less Than 3 Seconds (NATE BASSETT APRN) Height, Weight, BMI Height: 5'0.00" Weight: 389lbs. 0.4oz. 176.446699ar; 78.00 BMI Method:Stated General Appearance: No Apparent Distress, WD/WN Eyes: Bilateral Eye Normal Inspection, Bilateral Eye PERRL, Bilateral Eye EOMI Neck: Full Range of Motion, Normal Inspection Respiratory: No Accessory Muscle Use, No Respiratory Distress Cardiovascular: Regular Rate, Rhythm, Normal Peripheral Pulses Gastrointestinal: Normal Bowel Sounds, Non Tender, Soft Extremity: Normal Capillary Refill, Normal Inspection Neurologic/Psychiatric: Alert, Oriented x3 Skin: Normal Color, Warm/Dry (NATE BASSETT APRN) Progress/Results/Core Measures Suspected Sepsis SIRS Temperature: Pulse: 95 Respiratory Rate: 19 Laboratory Tests 06/28/21 17:34: White Blood Count 8.8 Blood Pressure 204 /101 Mean: 135 Laboratory Tests 06/28/21 17:34: Creatinine 0.66, Platelet Count 339, Total Bilirubin 0.4 (NATE BASSETT APRN) Results/Orders Lab Results Laboratory Tests Test 06/28/21 17:21 06/28/21 17:34 06/28/21 18:00 Range/Units SARS-CoV-2 RNA (RT-PCR) Not Detected Not Detecte White Blood Count 8.8 4.3-11.0 10^3/uL Red Blood Count 4.14 3.80-5.11 10^6/uL Hemoglobin 11.6 11.5-16.0 g/dL Hematocrit 39 35-52 % Mean Corpuscular Volume 95 80-99 fL Mean Corpuscular Hemoglobin 28 25-34 pg Mean Corpuscular Hemoglobin Concent 30 L 32-36 g/dL Red Cell Distribution Width 16.1 H 10.0-14.5 % Platelet Count 339 130-400 10^3/uL Mean Platelet Volume 9.3 9.0-12.2 fL Immature Granulocyte % (Auto) 1 % Neutrophils (%) (Auto) 69 42-75 % Lymphocytes (%) (Auto) 19 12-44 % Monocytes (%) (Auto) 8 0-12 % Eosinophils (%) (Auto) 4 0-10 % Basophils (%) (Auto) 0 0-10 % Neutrophils # (Auto) 6.0 1.8-7.8 10^3/uL Lymphocytes # (Auto) 1.7 1.0-4.0 10^3/uL Monocytes # (Auto) 0.7 0.0-1.0 10^3/uL Eosinophils # (Auto) 0.4 H 0.0-0.3 10^3/uL Basophils # (Auto) 0.0 0.0-0.1 10^3/uL Immature Granulocyte # (Auto) 0.0 0.0-0.1 10^3/uL Sodium Level 140 135-145 MMOL/L Potassium Level 3.9 3.6-5.0 MMOL/L Chloride Level 97 L 98-107 MMOL/L Carbon Dioxide Level 34 H 21-32 MMOL/L Anion Gap 9 5-14 MMOL/L Blood Urea Nitrogen 17 7-18 MG/DL Creatinine 0.66 0.60-1.30 MG/DL Estimat Glomerular Filtration Rate 95 BUN/Creatinine Ratio 26 Glucose Level 124 H 70-105 MG/DL Calcium Level 9.2 8.5-10.1 MG/DL Corrected Calcium 9.4 8.5-10.1 MG/DL Total Bilirubin 0.4 0.1-1.0 MG/DL Aspartate Amino Transf (AST/SGOT) 22 5-34 U/L Alanine Aminotransferase (ALT/SGPT) 20 0-55 U/L Alkaline Phosphatase 95 40-136 U/L B-Type Natriuretic Peptide 62.1 <100.0 PG/ML Total Protein 7.5 6.4-8.2 GM/DL Albumin 3.8 3.2-4.5 GM/DL Blood Gas Puncture Site LT RAD Blood Gas Patient Temperature 98.1 Arterial Blood pH 7.36 L 7.37-7.43 Arterial Blood Partial Pressure CO2 66 H 35-45 MMHG Arterial Blood Partial Pressure O2 91 79-93 MMHG Arterial Blood HCO3 36 H 23-27 MMOL/L Arterial Blood Total CO2 38.3 H 21.0-31.0 MMOL/L Arterial Blood Oxygen Saturation 96 94-100 % Arterial Blood Base Excess 10.5 H -2.5-2.5 MMOL/L Jaime Test UNK Blood Gas Ventilator Setting NO Blood Gas Inspired Oxygen 3L (RADU FOY MD) Vital Signs/I&O 06/28/21 06/28/21 06/28/21 17:16 17:16 19:15 Temp 36.7 Pulse 95 100 Resp 19 20 B/P (MAP) 204/101 (135) 180/122 Pulse Ox 99 100 O2 Delivery Room Air Nasal Cannula Nasal Cannula O2 Flow Rate 3.00 3.00 (RADU FOY MD) Vital Signs/I&O Capillary Refill : Less Than 3 Seconds (NATE BASSETT APRN) Blood Pressure Mean: 135 Departure Communication (Admissions) NAME: [facility]IAS [facility]ADDAD [facility] REC#: [id number] PT STATUS: REG ER : 1970 PHYSICIAN: NATE BASSETT APRN ADMIT DATE: 06/28/21/ER Signed Date of Exam:06/28/21 CHEST 1 VIEW, AP/PA ONLY INDICATION: Cough. TIME OF EXAM: 6:19 p.m. COMPARISON: Correlation is made with prior chest 01/21/2021. FINDINGS: Heart is enlarged. There appear to be congestive changes. Overall quality of the study is suboptimal due to patient's large body habitus and portable technique. There may be some infiltrate in the left upper lobe obscuring the aortic knob. IMPRESSION: Compromised study. There is cardiomegaly and congestive changes with probable left upper lobe infiltrate. Dictated by: Dictated on workstation # [id number] Dict: 06/28/211832 Trans: 06/28/211838 [id number] Interpreted by: DANIEL PRESTON MD Electronically signed by: DANIEL PRESTON MD 06/28/211838 (NATE BASSETT APRN) Impression Primary Impression: Obesity hypoventilation syndrome Additional Impression: Upper respiratory infection Disposition: 01 HOME, SELF-CARE Condition: Stable Departure-Patient Inst. Decision time for Depature: 18:54 (NATE BASSETT APRN) Referrals: NO,LOCAL PHYSICIAN (PCP/Family) Primary Care Physician Patient Instructions: Obesity, Adult (DC), Bacterial Upper Respiratory Infection, Adult (DC) Add. Discharge Instructions: 1. Antibiotics and steroids as directed. Follow-up with your doctor next week 3. All discharge instructions reviewed with patient and/or family. Voiced understanding. Scripts Cefuroxime Axetil (Cefuroxime) 250 Mg Tablet 250 MG PO BID, #10 TAB Prov: NATE BASSETT APRN 06/28/21 Prednisone (Prednisone) 20 Mg Tab 40 MG PO DAILY, #6 TAB 0 Refills Prov: NATE BASSETT APRN 06/28/21 ATTENDING PHYSICIAN NOTE: I was physically present as attending physician in the emergency department during the care of this patient, but I was not directly involved in the decision making or delivery of care for this patient. (RADU FOY MD) NATE BASSETT APRN Jun 28, 2021 17:49 RADU FOY MD Jun 30, 2021 09:04
[2021-06-28 17:52] LABS: ALBUMIN 3.8 GM/DL (3.2-4.5)
[2021-06-28 17:53] LABS: POTASSIUM 3.9 MMOL/L (3.6-5.0)
[2021-06-28 17:54] LABS: CALCIUM 9.2 MG/DL (8.5-10.1)
[2021-06-28 17:55] LABS: TOTAL PROTEIN 7.5 GM/DL (6.4-8.2)
[2021-06-28 17:57] LABS: BILIRUBIN,TOTAL 0.4 MG/DL (0.1-1.0)
[2021-06-28 17:59] LABS: CREATININE SERUM 0.66 MG/DL (0.60-1.30)
[2021-06-28 18:10] LABS: ABG BASE EXCESS 10.5 MMOL/L (-2.5-2.5); ABG OXYGEN SATURATION 96 % (94-100); ABG PCO2 66 MMHG (35-45); ABG PH 7.36 (7.37-7.43); ABG PO2 91 MMHG (79-93); ABG TCO2 38.3 MMOL/L (21.0-31.0)
[2021-06-28 18:11] LABS: INSPIRED O2 3L; PATIENT TEMP 98.1; VENTILATOR NO
--- NOTE | 2021-06-28 18:39 | Diagnostic Imaging Report ---
INDICATION: Cough. TIME OF EXAM: 6:19 p.m. COMPARISON: Correlation is made with prior chest 01/21/2021. FINDINGS: Heart is enlarged. There appear to be congestive changes. Overall quality of the study is suboptimal due to patient's large body habitus and portable technique. There may be some infiltrate in the left upper lobe obscuring the aortic knob. IMPRESSION: Compromised study. There is cardiomegaly and congestive changes with probable left upper lobe infiltrate. Dictated by: Dictated on workstation # [id number]
[2021-06-28] MEDS ORDERED: PRD20T PO (18:55)
[2021-06-28] MEDS ORDERED: CEFU250T80 PO (18:55)
[2021-06-28] MEDS ORDERED: predniSONE 20 MG TAB PO ONE (19:00)
[2021-06-28] MEDS ORDERED: CEFDINIR 300 MG (OMNICEF) CAP PO ONE (19:00)
[2021-06-28 19:15] VITALS: BP 180/122
== END 2021-06-28 19:15 | disposition home or self-care (01) ==
LOC: ER 17:16 → EDUNIT# 17:16 → ER 19:15
DX: J06.9 Acute upper respiratory infection, unspecified (principal); E66.2 Morbid (severe) obesity with alveolar hypoventilation; I11.0 Hypertensive heart disease with heart failure; I50.9 Heart failure, unspecified; E11.40 Type 2 diabetes mellitus with diabetic neuropathy, unspecified; I25.10 Atherosclerotic heart disease of native coronary artery without angina pectoris; I25.2 Old myocardial infarction; E03.9 Hypothyroidism, unspecified; E78.00 Pure hypercholesterolemia, unspecified; F41.9 Anxiety disorder, unspecified; F32.9 Major depressive disorder, single episode, unspecified; M79.7 Fibromyalgia; M41.9 Scoliosis, unspecified; G40.909 Epilepsy, unspecified, not intractable, without status epilepticus; G43.909 Migraine, unspecified, not intractable, without status migrainosus; J44.9 Chronic obstructive pulmonary disease, unspecified; Z86.73 Personal history of transient ischemic attack (TIA), and cerebral infarction without residual deficits; Z20.822 Contact with and (suspected) exposure to COVID-19; Z88.0 Allergy status to penicillin; Z88.5 Allergy status to narcotic agent; Z88.8 Allergy status to other drugs, medicaments and biological substances; Z99.81 Dependence on supplemental oxygen; Z79.4 Long term (current) use of insulin; Z79.52 Long term (current) use of systemic steroids; Z79.82 Long term (current) use of aspirin; Z79.890 Hormone replacement therapy; Z79.899 Other long term (current) drug therapy
CPT/HCPCS: 36415; 71045; 80053; 82805; 83880; 85025; 87636

== ENCOUNTER 2021-09-17 20:43 | Inpatient (IN) | payer MEDICAID ==
[~2021-09-17] VITALS: Ht 152.4 cm; Wt 176.5 kg
[~2021-09-17 20:43] MED LIST changes: +CEFU250T80 PO; +PRD20T PO
[2021-09-17 21:27] VITALS: BP_DIAS 184
[2021-09-17 21:33] LABS: ABG BASE EXCESS 9.1 MMOL/L (-2.5-2.5); ABG OXYGEN SATURATION 97 % (94-100); ABG PCO2 69 MMHG (35-45); ABG PO2 178 MMHG (79-93); ABG TCO2 37.6 MMOL/L (21.0-31.0)
[2021-09-17 21:34] LABS: ABG PH 7.32 (7.37-7.43); ALLENS TEST YES-POS; INSPIRED O2 75%; VENTILATOR YES
--- NOTE | 2021-09-17 21:47 | ED General ---
General Chief Complaint: General Problems/Pain Stated Complaint: FALL/WEAKNESS Source of Information: Patient (LIMITED HISTORIAN), EMS, Old Records History of Present Illness Date Seen by Provider: Sep 17, 2021 Time Seen by Provider: 20:46 Initial Comments PT ARRIVES VIA [facility] FROM HOME EMS AND FIRE DEPT HAVE BEEN CALLED TO THE HOME 3 TIMES TODAY FOR LIFT ASSIST/ASSIST BACK INTO BED--"TOO WEAK" TO STAND TONIGHT, WITH INCREASED WEAKNESS AND C/O PAIN TO LEFT FOOT ANKLE AND PAIN ACROSS CHEST AFTER "FALLS" EMS REPORT THAT PT WAS LEANING OVER BED RAILING ON HER CHEST, AND PT REPORTS THAT THIS IS WHERE HER CHEST IS HURTING-FROM LEANING OVER THE BED RAIL PT WITH SUPERMORBID OBESITY--PT WEIGHS IN EXCESS OF 450 LBS LONG HISTORY OF OBESITY HYPOVENTILATION SYNDROME. HOME BIPAP HAS BEEN ORDERED FOR PT ON PREVIOUS VISITS HERE, BUT PT STATES SHE DOES NOT HAVE IT--STATES SHE "CAN'T GET IT--THEY WON'T LET ME HAVE IT" EMS REPORT THAT O2 SAT WAS 88% ON 4L/NC AT THE SCENE, AND THEY PLACED PT ON 10L/MASK AND O2 SATS UP TO UPPER 90'S. ADDITIONALLY, ON PREVIOUS VISITS HERE IN DECEMBER OF 2020, HOSPICE WAS ARRANGED FOR PT. PT STATES SHE IS NOT ON HOSPICE. PT'S MAIN COMPLAINT ON ARRIVAL HERE IS LEFT FOOT PAIN PT IS ESSENTIALLY BED BOUND DUE TO OBESITY, AND CHRONIC GENERALIZED PAIN AND LEG PAIN DENIES FEVER DENIES GI SYMPTOMS PT CLAIMS NO RECENT MEDICATION CHANGES. CLAIMS SHE SAW HER DR AT [facility] IN [place] "2 OR 3 WEEKS AGO" FOR ROUTINE FOLLOW UP PT WITH LONG HISTORY OF NON-COMPLIANCE IN ALL ASPECTS OF CARE REPORTS THAT HOME HEALTH "QUIT SEEING HER" PCP: RICKI PHYSICIAN. LICENSED LOAN OFFICER ASSISTANT: RICKI PHYSICIAN Allergies and Home Medications Allergies Coded Allergies: [place] And Derivatives (Verified Allergy, Intermediate, 12/19/20) MAKES TONGUE BREAK OUT duloxetine (Verified Allergy, Unknown, 03/17/20) tramadol (Verified Allergy, Unknown, 03/17/20) butorphanol (Unverified Adverse Reaction, Severe, 08/04/18) HALLUCINATIONS Penicillins (Unverified Adverse Reaction, Unknown, NAUSEA, 08/04/18) Patient Home Medication List Home Medication List Reviewed: Yes Aspirin (Aspirin EC) 81 Mg Tablet., 81 MG PO DAILY, (Reported) Entered as Reported by: SAMEER BUTTS on 11/19/20 1054 Last Action: Reviewed Atorvastatin Calcium (Atorvastatin Calcium) 40 Mg Tablet, 40 MG PO HS, (Reported) Entered as Reported by: LUIS MATHIS on 08/04/18 417 Last Action: Reviewed Baclofen (Baclofen) 20 Mg Tablet, 20 MG PO BID W/FOOD PRN for MUSCLE SPASMS, (Reported) Entered as Reported by: SAMEER BUTTS on 09/19/211408 Last Action: Reviewed Diclofenac Sodium (Diclofenac Sodium) 100 Gm Gel..gram., 2 GM TOP TID PRN for PAIN-BREAKTHROUGH, (Reported) Entered as Reported by: SAMEER BUTTS on 09/19/211408 Last Action: Reviewed Divalproex Sodium (Divalproex Sodium) 500 Mg Tablet.dr, 500 MG PO BID, (Reported) Entered as Reported by: SAMEER BUTTS on 09/19/211408 Last Action: Reviewed Insulin Aspart (Insulin Aspart) 100 Unit/1 Ml Vial, UNIT SQ UD, (Reported) Entered as Reported by: ALIX RIOS on 12/18/20 0239 Last Action: Reviewed Levothyroxine Sodium (Levothyroxine Sodium) 200 Mcg Tablet, 200 MCG PO DAILY, (Reported) Entered as Reported by: SAMEER BUTTS on 10/14/20 153 Last Action: Reviewed Levothyroxine Sodium (Levothyroxine Sodium) 25 Mcg Tablet, 25 MCG PO DAILY, (Reported) Entered as Reported by: SAMEER BUTTS on 09/19/211408 Last Action: Reviewed Losartan Potassium (Losartan Potassium) 100 Mg Tablet, 100 MG PO DAILY, (Reported) Entered as Reported by: SAMEER BUTTS on 10/14/20 153 Last Action: Reviewed Menthol/Lanolin/Calamine/Znox (Calmoseptine Ointment) 71 Gm Oint, 1 APPLIC TOP QID PRN for WOUND CARE, (Reported) Entered as Reported by: SAMEER BUTTS on 09/19/211408 Last Action: Reviewed Menthol/Zinc Oxide (Gold Levi Medicated Body Powd) 113 Gm Powder, 1 APPLIC TP UD PRN for SKIN IRRITATION, (Reported) Entered as Reported by: SAMEER BUTTS on 09/19/211408 Last Action: Reviewed Metoprolol Tartrate (Metoprolol Tartrate) 100 Mg Tablet, 100 MG PO BID, (Reported) Entered as Reported by: LUIS MATHIS on 08/04/181733 Last Action: Reviewed Naproxen (Naproxen) 500 Mg Tablet, 500 MG PO BID PRN for PAIN-MILD (1-4), (Reported) Entered as Reported by: SAMEER BUTTS on 10/14/201535 Last Action: Reviewed Pantoprazole Sodium (Pantoprazole Sodium) 40 Mg Tablet.dr, 40 MG PO DAILY, (Reported) Entered as Reported by: SAMEER BUTTS on 10/14/201535 Last Action: Reviewed Pramipexole Di-HCl (Pramipexole Dihydrochloride) 1 Mg Tablet, 1 MG PO HS, (Reported) Entered as Reported by: SAMEER BUTTS on 10/14/201535 Last Action: Reviewed Pregabalin (Pregabalin) 200 Mg Capsule, 200 MG PO BID, (Reported) Entered as Reported by: SAMEER BUTTS on 11/19/20 105 Last Action: Reviewed Solifenacin Succinate (Solifenacin Succinate) 5 Mg Tablet, 5 MG PO DAILY, (Reported) Entered as Reported by: SAMEER BUTTS on 09/19/21 140 Last Action: Reviewed Spironolactone (Spironolactone) 100 Mg Tablet, 50 MG PO DAILY Prescribed by: EBONIE MCCLENDON on 09/22/21 1041 Sumatriptan Succinate (Sumatriptan Succinate) 100 Mg Tablet, 100 MG PO UD PRN f or MIGRAINE, (Reported) Entered as Reported by: LUIS MATHIS on 08/04/181733 Last Action: Reviewed Torsemide (Torsemide) 20 Mg Tablet, 20 MG PO 0700,1700 Prescribed by: EBONIE MCCLENDON on 09/22/21 1041 Discontinued Medications Albuterol Sulfate (Albuterol Sulfate) 2.5 Mg/3 Ml Vial.neb, 2.5 MG INH TID PRN for SHORTNESS OF BREATH, (Reported) Discontinued Reason: No Longer Taking Entered as Reported by: LUIS MATHIS on 08/04/181733 Last Action: Discontinued Albuterol Sulfate (Proventil Hfa) 6.7 Gm Hfa.aer.ad, 2 PUFF INH Q6H PRN for SHORTNESS OF BREATH, (Reported) Discontinued Reason: No Longer Taking Entered as Reported by: LUIS MATHIS on 08/04/181733 Last Action: Discontinued Baclofen (Baclofen) 10 Mg Tablet, 10 MG PO HS, (Reported) Discontinued Reason: Duplicate Order Entered as Reported by: SAMEER BUTTS on 10/14/20 153 Last Action: Discontinued Cefuroxime Axetil (Cefuroxime) 250 Mg Tablet, 250 MG PO BID Discontinued Reason: Duplicate Order Prescribed by: NATE BASSETT on 06/28/21 1855 Last Action: Discontinued Diclofenac Sodium (Diclofenac Sodium) 100 Gm Gel..gram., 100 GM TP QID PRN for PAIN-MILD (1-4), (Reported) Discontinued Reason: Duplicate Order Entered as Reported by: SHERIF GUPTA on 12/20/20 1444 Last Action: Discontinued Divalproex Sodium (Divalproex Sodium ER) 500 Mg Tab.er.24h, 500 MG PO BID, (Reported) Discontinued Reason: Duplicate Order Entered as Reported by: LUIS MATHIS on 08/04/181733 Last Action: Discontinued Furosemide (Furosemide) 40 Mg Tablet, 40 MG PO BID, (Reported) Entered as Reported by: SAMEER BUTTS on 10/14/20 153 Last Action: Reviewed Hydrochlorothiazide (Hydrochlorothiazide) 25 Mg Tablet, 25 MG PO DAILY, (Reported) Entered as Reported by: SAMEER BUTTS on 10/14/201535 Last Action: Reviewed Ipratropium/Albuterol Sulfate (Iprat-Albut 0.5-3(2.5) mg/3 ml) 3 Ml Ampul.neb, 3 ML IH Q4H PRN for SHORTNESS OF BREATH Discontinued Reason: No Longer Taking Prescribed by: LEATHA ENGLISH on 01/21/21 1737 Last Action: Discontinued Nitrofurantoin Monohyd/M-Cryst (Nitrofurantoin [place]-Mcr 100 mg) 100 Mg Capsule, 100 MG PO BID Discontinued Reason: No Longer Taking Prescribed by: DEMARCO LOPEZ on 12/21/20 1150 Last Action: Discontinued Ondansetron (Ondansetron Odt) 4 Mg Tab.rapdis, 4 MG SL Q8H PRN for NAUSEA-1ST LINE, (Reported) Discontinued Reason: No Longer Taking Entered as Reported by: ALIX RIOS on 12/18/20238 Last Action: Discontinued Potassium Chloride (Potassium Chloride) 20 Meq Tablet.er, 20 MCG PO DAILY, (Reported) Discontinued Reason: No Longer Taking Entered as Reported by: ALIX RIOS on 12/18/20238 Last Action: Discontinued Prednisone (Prednisone) 20 Mg Tab, 40 MG PO DAILY Discontinued Reason: No Longer Taking Prescribed by: NATE BASSETT on 06/28/21 1855 Last Action: Discontinued [bipap] , EA INH DAILY PRN, (DME) Discontinued Reason: No Longer Taking Prescribed by: LEATHA ENGLISH on 01/21/21 1737 Last Action: Discontinued Review of Systems Review of Systems Constitutional: No fever; malaise, weakness Respiratory: see HPI; No cough Cardiovascular: see HPI Musculoskeletal: see HPI Past Waoervq-Rgduro-Xtaehs Hx Patient Social History Tobacco Use?: Yes Tobacco type used: Cigarettes Smoking Status: Former Smoker Substance use?: Yes Substance type: Methamphetamine Additional substance use comme: HX OF IV METH USE Alcohol Use?: Yes Alcohol Frequency: Once in a while Immunizations Up To Date Tetanus Booster (TDap): Unknown PED Vaccines UTD: Yes First/Initial COVID19 Vaccinat: AUGUST 2020 Second COVID19 Vaccination Mamadou: SEPTEMBER 2020 Third COVID19 Vaccination Date: AUGUST 2020 Seasonal Allergies Seasonal Allergies: No Past Medical History Surgery/Hospitalization HX: COPD, CHF Surgeries: Yes Cardiac, Section, Gallbladder, Orthopedic, Tubal Ligation Respiratory: Yes (RESTRICTIVE LUNG DZ;LEFT CHEST DEFORMITY;CHF;CHRONIC RESP FAILURE-3L/NC) Asthma, Pneumonia, Chronic Bronchitis, Sleep Apnea, COPD Currently Using CPAP: No Currently Using BIPAP: No Cardiac: Yes (CHF; CARDIAC ABLATION FOR SVT ) Coronary Artery Disease, Heart Attack, High Cholesterol, Hypertension, Irregular Heartbeat Neurological: Yes Headaches /Migraines, Neuropathy, Seizure Disorder, Stroke Reproductive Disorders: No 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 Genitourinary: Yes UTI-Chronic Gastrointestinal: Yes (Reports celiac disease) Ulcer, Gall Bladder Disease Musculoskeletal: Yes (BACK SURGERY FOR SCOLIOSIS; LEFT FOOT SURGERY) Fibromyalgia, Scoliosis, Chronic Back Pain Endocrine: Yes (SUPER MORBID OBESITY--> 500LBS) Diabetes, Insulin dep, Hypothyroidsim HEENT: Yes (EDENTULOUS) Cancer: No Psychosocial: Yes Anxiety, Depression Integumentary: No Blood Disorders: No Family Medical History SOCIAL HISTORY: -ETOH--OCCASIONAL USE -DRUGS--HX OF IV METHAMPHETAMINE USE -SMOKED 1/2 PPD FROM AGE 19 TO 23 PAST SURGICAL HISTORY: -BACK SURGERY FOR SCOLIOSIS AGE 15 -LEFT FOOT RECONSTRUCTION BECAUSE OF PROBLEM WITH ARCH OF FOOT - X 2 -EGD -CARDIAC ABLATION FOR SVT -CHOLECYSTECTOMY -BILATERAL TUBAL LIGATION ADDITIONAL PAST MEDICAL HISTORY: -CLAIMS SHE HAD A "STRESS HEART ATTACK" AT AGE 27--NO CARDIAC CATH, BUT HAD STRESS TEST AND ECHOCARDIOGRAM -SEIZURES DX AGE 33 -HAD POSSIBLE STROKE WITH ONE SEIZURE-HAD LEFT SIDE PARALYSIS FOR 2 WEEKS, COMPLETELY RESOLVED -PERIPHERAL NEUROPATHY -CHRONIC LEFT FOOT NUMBNESS SINCE LEFT FOOT SURGERY -IMPAIRED MOBILITY--HAS USED WALKER, WHEELCHAIR AND MOTORIZED WHEELCHAIR--NOW ESSENTALLY BED BOUND DUE TO SUPER MORBID OBESITY AND CHRONIC GENERALIZED PAIN AND LEG AND FOOT PAIN LONG HISTORY OF NON-COMPLIANCE IN ALL ASPECTS OF CARE Physical Exam Vital Signs Vital Signs - First Documented 09/17/21 09/17/21 21:11 21:27 Temp 36.0 Pulse 110 Resp 25 B/P (MAP) 171/80 (110) Pulse Ox 100 O2 Delivery NIV Bilevel O2 Flow Rate 50.00 Capillary Refill : Height, Weight, BMI Height: 5'0.00" Weight: 389lbs. 0.4oz. 176.483994av; 78.00 BMI Method:Stated General Appearance: No Apparent Distress, Obese (SUPERMORIBDLY OBESE--WEIGHT > 450 LBS. ), Other (MILDLY LETHARGIC AND MOANING ON ARRIVAL, BUT PT IS AWAKE AND ABLE TO ANSWER QUESTIONS. SOMEWHAT HOSTILE. ) Respiratory: Normal Breath Sounds, No Respiratory Distress Cardiovascular: Tachycardia Gastrointestinal: Soft Extremity: Other (UNABLE TO DETERMINE OF EDEMA IS PRESENT DUE TO BODY HABITUS. DOES HAVE DIFFUSE TENDERNESS TO LEFT FOOT AND ANKLE, WITH MULTIPLE OLD / HEALED SURGICAL SCARS. NO SIGNS OF RECENT TRAUMA. MOTOR/SENSORY/VASCULAR INTACT, BUT HAS GENERALIZED LIMITED ROM OF ALL EXTREMITIES DUE TO BODY HABITUS) Neurologic/Psychiatric: Alert, Oriented x3 Skin: Normal Color, Warm/Dry, Rash (EXTENSIVE ANIKA INTERTRIGO TO INGUINAL AREA/ABDOMINAL FOLDS/UNDER BREASTS), Tattoos/Piercings Focused Exam Sepsis Stage: Ruled Out Reason for ruling out sepsis: DOES NOT MEET CRITERIA Possible Source: Genitouriary Lactate Level 09/17/21 22:26: Lactic Acid Level 0.77 Respiratory: Normal Breath Sounds, Other (ON BIPAP) Cardiovascular: Regular Rate, Rhythm Capillary Refill: Less Than 3 Seconds Skin: warm/dry Lactic Acid Level Laboratory Tests Test 09/17/21 22:26 Lactic Acid Level 0.77 MMOL/L (0.50-2.00) Within 3hrs of presentation: Admin fluids, Admin ABX, Blood cultures prior to ABX's, Focus exam, Lactate level Progress/Results/Core Measures Suspected Sepsis SIRS Temperature: Pulse: 111 Respiratory Rate: 20 Laboratory Tests 09/17/21 22:26: White Blood Count 7.4 Blood Pressure /184 Mean: 09/17/21 22:26: Lactic Acid Level 0.77 Laboratory Tests 09/17/21 22:26: INR Comment 1.0, Platelet Count 282, Total Bilirubin 0.4 Results/Orders Lab Results Laboratory Tests Test 09/17/21 21:15 09/17/21 21:45 09/17/21 22:26 09/17/21 22:50 Range/Units Blood Gas Puncture Site LEFT RADIAL Blood Gas Patient Temperature 36.0 Arterial Blood pH 7.32 *L 7.37-7.43 Arterial Blood Partial Pressure CO2 69 H 35-45 MMHG Arterial Blood Partial Pressure O2 178 H 79-93 MMHG Arterial Blood HCO3 35 H 23-27 MMOL/L Arterial Blood Total CO2 37.6 H 21.0-31.0 MMOL/L Arterial Blood Oxygen Saturation 97 94-100 % Arterial Blood Base Excess 9.1 H -2.5-2.5 MMOL/L Jaime Test YES-POS Blood Gas Ventilator Setting YES Blood Gas Inspired Oxygen 75% Influenza Type A (RT-PCR) Not Detected Not Detecte Influenza Type B (RT-PCR) Not Detected Not Detecte SARS-CoV-2 RNA (RT-PCR) Not Detected Not Detecte White Blood Count 7.4 4.3-11.0 10^3/uL Red Blood Count 3.67 L 3.80-5.11 10^6/uL Hemoglobin 10.1 L 11.5-16.0 g/dL Hematocrit 34 L 35-52 % Mean Corpuscular Volume 93 80-99 fL Mean Corpuscular Hemoglobin 28 25-34 pg Mean Corpuscular Hemoglobin Concent 30 L 32-36 g/dL Red Cell Distribution Width 16.6 H 10.0-14.5 % Platelet Count 282 130-400 10^3/uL Mean Platelet Volume 9.5 9.0-12.2 fL Immature Granulocyte % (Auto) 1 % Neutrophils (%) (Auto) 66 42-75 % Lymphocytes (%) (Auto) 19 12-44 % Monocytes (%) (Auto) 8 0-12 % Eosinophils (%) (Auto) 6 0-10 % Basophils (%) (Auto) 0 0-10 % Neutrophils # (Auto) 4.9 1.8-7.8 10^3/uL Lymphocytes # (Auto) 1.4 1.0-4.0 10^3/uL Monocytes # (Auto) 0.6 0.0-1.0 10^3/uL Eosinophils # (Auto) 0.5 H 0.0-0.3 10^3/uL Basophils # (Auto) 0.0 0.0-0.1 10^3/uL Immature Granulocyte # (Auto) 0.0 0.0-0.1 10^3/uL Erythrocyte Sedimentation Rate 44 H 0-20 MM/HR Prothrombin Time 13.2 12.2-14.7 SEC INR Comment 1.0 0.8-1.4 Activated Partial Thromboplast Time 30 24-35 SEC Sodium Level 139 135-145 MMOL/L Potassium Level 4.4 3.6-5.0 MMOL/L Chloride Level 97 L 98-107 MMOL/L Carbon Dioxide Level 29 21-32 MMOL/L Anion Gap 13 5-14 MMOL/L Blood Urea Nitrogen 21 H 7-18 MG/DL Creatinine 0.68 0.60-1.30 MG/DL Estimat Glomerular Filtration Rate 107 BUN/Creatinine Ratio 31 Glucose Level 203 H 70-105 MG/DL Lactic Acid Level 0.77 0.50-2.00 MMOL/L Calcium Level 8.9 8.5-10.1 MG/DL Corrected Calcium 9.3 8.5-10.1 MG/DL Magnesium Level 1.7 1.6-2.4 MG/DL Total Bilirubin 0.4 0.1-1.0 MG/DL Aspartate Amino Transf (AST/SGOT) 18 5-34 U/L Alanine Aminotransferase (ALT/SGPT) 17 0-55 U/L Alkaline Phosphatase 91 40-136 U/L Ammonia 38 H 11-32 UMOL/L Lactate Dehydrogenase 332 H 125-220 U/L Total Creatine Kinase 102 29-168 U/L Creatine Kinase MB 2.5 <6.6 NG/ML Myoglobin 30.4 10.0-92.0 NG/ML Troponin I < 0.028 <0.028 NG/ML C-Reactive Protein High Sensitivity 4.65 H 0.00-0.50 MG/DL B-Type Natriuretic Peptide 100.8 H <100.0 PG/ML Total Protein 6.2 L 6.4-8.2 GM/DL Albumin 3.5 3.2-4.5 GM/DL Amylase Level 29 25-125 U/L Lipase 11 8-78 U/L Procalcitonin 0.02 <0.10 NG/ML TSH [place] Testing 3.16 0.35-4.94 UIU/ML Serum Test, Qualitative NEGATIVE NEGATIVE Acetaminophen Level < 10 L 10-30 UG/ML Serum Alcohol < 10 <10 MG/DL Urine Color YELLOW Urine Clarity CLEAR Urine pH 6.0 5-9 Urine Specific [place] >=1.030 1.016-1.022 Urine Protein TRACE H NEGATIVE Urine Glucose (UA) TRACE H NEGATIVE Urine Ketones NEGATIVE NEGATIVE Urine Nitrite POSITIVE H NEGATIVE Urine Bilirubin NEGATIVE NEGATIVE Urine Urobilinogen 0.2 < = 1.0 MG/DL Urine Leukocyte Esterase NEGATIVE NEGATIVE Urine RBC (Auto) NEGATIVE NEGATIVE Urine RBC NONE /HPF Urine WBC NONE /HPF Urine Squamous Epithelial Cells RARE /HPF Urine Crystals NONE /LPF Urine Bacteria LARGE H /HPF Urine Casts NONE /LPF Urine Mucus NEGATIVE /LPF Urine Culture Indicated YES Urine Opiates Screen NEGATIVE NEGATIVE Urine Oxycodone Screen NEGATIVE NEGATIVE Urine Methadone Screen NEGATIVE NEGATIVE Urine Propoxyphene Screen NEGATIVE NEGATIVE Urine Barbiturates Screen NEGATIVE NEGATIVE Ur Tricyclic Antidepressants Screen NEGATIVE NEGATIVE Urine Phencyclidine Screen NEGATIVE NEGATIVE Urine Amphetamines Screen NEGATIVE NEGATIVE Urine Methamphetamines Screen NEGATIVE NEGATIVE Urine Benzodiazepines Screen NEGATIVE NEGATIVE Urine Cocaine Screen NEGATIVE NEGATIVE Urine Cannabinoids Screen NEGATIVE NEGATIVE Test 09/17/21 23:15 Range/Units Lab Scanned Report Referred Lab Report [id number] Micro Results Microbiology 09/17/21 Urine Culture - Final, Complete Escherichia coli My Orders Orders - CASPER ZAFAR DO Ed Iv/Invasive Line Start (09/17/21 20:47) Ekg Tracing (09/17/21 20:47) Catheter(Urinary) Insert & Ass 03,15 (09/17/21 20:47) O2 (09/17/21 20:47) Monitor-Rhythm Ecg Trace Only (09/17/21:47) Chest 1 View, Ap/Pa Only (09/17/21:47) Foot, Left, 3 Views (09/17/21:47) Ankle, Left, 3 Views (09/17/21:47) Pelvis (09/17/21:47) Acetaminophen (09/17/21:47) Alcohol (09/17/21:47) Ammonia (09/17/21:47) Amylase (09/17/21 20:47) Arterial Blood Gas (09/17/21:47) Bnp [place] (09/17/21:47) Cbc With Automated Diff (09/17/21:47) Comprehensive Metabolic Panel (09/17/21:47) Creatine Kinase (09/17/21:47) Creatine Kinase Mb (09/17/21:47) Hs C Reactive Protein (09/17/21:47) Drug Screen Stat (Urine) (09/17/21:47) Hcg,Qualitative Serum (09/17/21:47) Lactic Acid Analyzer (09/17/21:47) Lipase (09/17/21:47) Magnesium (09/17/21:47) Protime With Inr (09/17/21:47) Partial Thromboplastin Time (09/17/21:47) Thyroid Analyzer (09/17/21:47) Ua Culture If Indicated (09/17/21:47) Erythrocyte Sedimentation Rate (09/17/21:47) Myoglobin Serum (09/17/21 20:47) Troponin I Sheila (09/17/21:47) Procalcitonin (Pct) (09/17/21:47) LDH (09/17/21:47) Covid 19 Inhouse Test (09/17/21:47) Influenza A And B By Pcr (09/17/21:47) Isolation Central Supply Req (09/17/21:47) Rt Request For Service (09/17/21 21:11) Tibia/Fibula, Left, 2 Views (09/17/21 21:15) Arterial Blood Gas (09/17/21 21:15) Furosemide Injection (Lasix Injection) (09/17/21 22:15) Urine Culture (09/17/21 22:50) Ceftriaxone 1 Gm Pre-Mix (Rocephin 1 Gm (09/17/21 23:10) Medications Given in ED Vital Signs/I&O 09/17/21 09/17/21 09/17/21 21:11 21:27 22:25 Temp 36.0 Pulse 110 111 Resp 25 20 B/P (MAP) 171/80 (110) Pulse Ox 100 100 100 O2 Delivery NIV Bilevel NIV Bilevel O2 Flow Rate 50.00 Capillary Refill : Progress Note : Progress Note PLACED ON BIPAP ON ARRIVAL. O2 SATS 100% NO DETERIORATION IN PT'S CONDITION DURING ER STAY ECG Initial ECG Impression Date: Sep 17, 2021 Initial ECG Impression Time: 21:29 Initial ECG Rate: 112 Initial ECG Rhythm: S.Tach Diagnostic Imaging Comments XRAYS--PER RADIOLOGIST REPORTS 2199 CXR-- FINDINGS: Heart is enlarged. There is mild to moderate edema. No pneumothorax. No pleural effusion. There is a right rib cage deformities that is unchanged. IMPRESSION: Enlarged heart with mild to moderate edema. LEFT FOOT-- FINDINGS: There is severe edema about the left ankle and foot. There has been a hindfoot and midfoot arthrodesis. There has been fixation of the 1st metatarsal. No acute fracture is seen. IMPRESSION: Severe soft tissue swelling in the left foot and ankle. No acute fracture. LEFT ANKLE-- FINDINGS: There is severe soft tissue swelling about the left ankle and foot. No ankle fracture. There is a minimal midfoot and hindfoot arthrodesis. There is moderate ankle joint osteoarthritis. IMPRESSION: Severe soft tissue swelling. No fracture. LEFT TIB-FIB-- FINDINGS: There is severe soft tissue swelling about the left tibia and fibula. No acute fracture. No dislocation. IMPRESSION: No acute fracture in the left tibia and fibula. PELVIS-- FINDINGS: There is mild bilateral hip joint osteoarthritis. No fracture. No dislocation. IMPRESSION: No acute fracture. Reviewed: Reviewed by Me Departure Communication (Admissions) 1650--SPOKE WITH DR. REILLY, HOSPITALIST, ACCEPTS PT FOR ADMIT Impression Primary Impression: Acute and chronic respiratory failure ([id number]) Additional Impressions: Obesity hypoventilation syndrome CHF (congestive heart failure) SUPER MORBID OBESITY Multiple falls Debility Diabetes mellitus, insulin dependent (IDDM), uncontrolled UTI (urinary tract infection) Chronic pain Disposition: ADMITTED INPATIENT Condition: Stable Admissions Decision to Admit Reason: Admit from ER (General) Decision to Admit/Date: Sep 17, 2021 Time/Decision to Admit Time: 23:15 Departure-Patient Inst. Referrals: NO,LOCAL PHYSICIAN (PCP/Family) Primary Care Physician Scripts Torsemide (Torsemide) 20 Mg Tablet 20 MG PO 0700,1700, #60 TAB Prov: EBONIE MCCLENDON MD 09/22/21 Spironolactone (Spironolactone) 100 Mg Tablet 50 MG PO DAILY, #30 TAB Prov: EBONIE MCCLENDON MD 09/22/21 CASPER ZAFAR DO Sep 17, 2021 21:47
--- NOTE | 2021-09-17 21:56 | Diagnostic Imaging Report ---
EXAMINATION: Chest 1 view. HISTORY: Weakness. COMPARISON: 06/28/2020. FINDINGS: Heart is enlarged. There is mild to moderate edema. No pneumothorax. No pleural effusion. There is a right rib cage deformities that is unchanged. IMPRESSION: Enlarged heart with mild to moderate edema. Dictated by: Dictated on workstation # [id number]
--- NOTE | 2021-09-17 21:57 | Diagnostic Imaging Report ---
EXAMINATION: Left ankle 3 views. HISTORY: Ankle pain. COMPARISON: None available. FINDINGS: There is severe soft tissue swelling about the left ankle and foot. No ankle fracture. There is a minimal midfoot and hindfoot arthrodesis. There is moderate ankle joint osteoarthritis. IMPRESSION: Severe soft tissue swelling. No fracture. Dictated by: Dictated on workstation # [id number]
--- NOTE | 2021-09-17 21:57 | Diagnostic Imaging Report ---
EXAMINATION: Left foot 3 views. HISTORY: Foot pain. COMPARISON: None available. FINDINGS: There is severe edema about the left ankle and foot. There has been a hindfoot and midfoot arthrodesis. There has been fixation of the 1st metatarsal. No acute fracture is seen. IMPRESSION: Severe soft tissue swelling in the left foot and ankle. No acute fracture. Dictated by: Dictated on workstation # [id number]
--- NOTE | 2021-09-17 21:58 | Diagnostic Imaging Report ---
EXAMINATION: Pelvis 1 or 2 views. HISTORY: Pelvic pain. COMPARISON: None available. FINDINGS: There is mild bilateral hip joint osteoarthritis. No fracture. No dislocation. IMPRESSION: No acute fracture. Dictated by: Dictated on workstation # [id number]
--- NOTE | 2021-09-17 21:59 | Diagnostic Imaging Report ---
EXAMINATION: Left tibia and fibula 2 views. HISTORY: Leg pain. COMPARISON: None available. FINDINGS: There is severe soft tissue swelling about the left tibia and fibula. No acute fracture. No dislocation. IMPRESSION: No acute fracture in the left tibia and fibula. Dictated by: Dictated on workstation # [id number]
[2021-09-17] MEDS ORDERED: FUROSEMIDE 40 MG/4 ML INJ (LASIX) IVP ONE (22:15)
[2021-09-17 22:34] LABS: BASOPHILS % (AUTO) 0 % (0-10); EOSINOPHILS # (AUTO) 0.5 10^3/uL (0.0-0.3); EOSINOPHILS % (AUTO) 6 % (0-10); HEMATOCRIT 34 % (35-52); HEMOGLOBIN 10.1 g/dL (11.5-16.0); LYMPHOCYTES # (AUTO) 1.4 10^3/uL (1.0-4.0); LYMPHOCYTES % (AUTO) 19 % (12-44); MEAN CORPUSCULAR HEMOGLOBIN 28 pg (25-34); MEAN CORPUSCULAR HGB CONC 30 g/dL (32-36); MEAN CORPUSCULAR VOLUME 93 fL (80-99); MEAN PLATELET VOLUME 9.5 fL (9.0-12.2); MONOCYTES # (AUTO) 0.6 10^3/uL (0.0-1.0); MONOCYTES % (AUTO) 8 % (0-12); NEUTROPHILS # (AUTO) 4.9 10^3/uL (1.8-7.8); NEUTROPHILS % (AUTO) 66 % (42-75); PLATELET COUNT 282 10^3/uL (130-400); WHITE BLOOD COUNT 7.4 10^3/uL (4.3-11.0)
[2021-09-17 22:45] LABS: CHLORIDE 97 MMOL/L (98-107)
[2021-09-17 22:46] LABS: ALBUMIN 3.5 GM/DL (3.2-4.5); POTASSIUM 4.4 MMOL/L (3.6-5.0); SODIUM 139 MMOL/L (135-145)
[2021-09-17 22:47] LABS: AMYLASE 29 U/L (25-125); CALCIUM 8.9 MG/DL (8.5-10.1); PROTHROMBIN TIME PATIENT 13.2 SEC (12.2-14.7)
[2021-09-17 22:48] LABS: AMMONIA 38 UMOL/L (11-32); GLUCOSE 203 MG/DL (70-105)
[2021-09-17 22:49] LABS: TOTAL PROTEIN 6.2 GM/DL (6.4-8.2)
[2021-09-17 22:50] LABS: BILIRUBIN,TOTAL 0.4 MG/DL (0.1-1.0); CARBON DIOXIDE 29 MMOL/L (21-32)
[2021-09-17 22:52] LABS: ALKALINE PHOSPHATASE 91 U/L (40-136); CREATININE SERUM 0.68 MG/DL (0.60-1.30); GFR ESTIMATED 107
[2021-09-17 22:53] LABS: BUN/CREATININE RATIO 31
[2021-09-17 22:55] LABS: ALANINE AMINOTRANSFERASE 17 U/L (0-55); MAGNESIUM 1.7 MG/DL (1.6-2.4)
[2021-09-17 22:56] LABS: CREATINE KINASE 102 U/L (29-168); LIPASE 11 U/L (8-78)
[2021-09-17 22:57] LABS: ACETAMINOPHEN < 10 UG/ML (10-30)
[2021-09-17 22:57] LABS: BILIRUBIN,URINE NEGATIVE (NEGATIVE); CLARITY,URINE CLEAR; COLOR,URINE YELLOW; GLUCOSE, URINE (UA) TRACE (NEGATIVE); KETONES,URINE NEGATIVE (NEGATIVE); LEUKOCYTE ESTERASE ,URINE NEGATIVE (NEGATIVE); NITRITE,URINE POSITIVE (NEGATIVE); PROTEIN,URINE TRACE (NEGATIVE)
[2021-09-17 23:04] LABS: CREATINE KINASE MB 2.5 NG/ML (<6.6)
[2021-09-17 23:08] LABS: BACTERIA,URINE LARGE /HPF; SQUAMOUS EPITHELIAL CELL,UR RARE /HPF
[2021-09-17 23:10] LABS: AMPHETAMINE SCREEN, URINE NEGATIVE (NEGATIVE); BARBITURATE SCREEN URINE NEGATIVE (NEGATIVE); BENZODIAZEPINES SCREEN URINE NEGATIVE (NEGATIVE); CANNABINOID SCREEN, URINE NEGATIVE (NEGATIVE); COCAINE SCREEN URINE NEGATIVE (NEGATIVE); METHADONE STAT NEGATIVE (NEGATIVE); METHAMPHETAMINE SCREEN URINE S NEGATIVE (NEGATIVE); OPIATE SCREEN URINE NEGATIVE (NEGATIVE); OXYCODONE STAT NEGATIVE (NEGATIVE); PROPOXYPHENE STAT NEGATIVE (NEGATIVE); TRICYCLIC ANTIDEPRESSANTS SCRE NEGATIVE (NEGATIVE)
[2021-09-17 23:10] LABS: ERYTHROCYTE SEDIMENTATION RATE 44 MM/HR (0-20)
[2021-09-17] MEDS ORDERED: cefTRIAXone 1 GM PRE-MIX 50 ML IV STA (23:10)
[2021-09-17 23:16] LABS: TSH (THYROID ANALYZER) 3.16 UIU/ML (0.35-4.94)
[2021-09-18] MEDS ORDERED: CATHETER FLUSH 10 ML SYR IVP PRN (02:00)
[2021-09-18] MEDS ORDERED: ONDANSETRON 4 MG/2 ML (SDV) Z0FRAN IV PRN (02:15)
[2021-09-18] MEDS ORDERED: RT-ALBUTEROL SULF 2.5 MG/3 ML PRE-MIX VIAL INH PRN (04:30)
[2021-09-18 04:41] LABS: BASOPHILS % (AUTO) 0 % (0-10); EOSINOPHILS # (AUTO) 0.5 10^3/uL (0.0-0.3); EOSINOPHILS % (AUTO) 8 % (0-10); HEMATOCRIT 33 % (35-52); HEMOGLOBIN 9.7 g/dL (11.5-16.0); LYMPHOCYTES # (AUTO) 1.6 10^3/uL (1.0-4.0); LYMPHOCYTES % (AUTO) 23 % (12-44); MEAN CORPUSCULAR HEMOGLOBIN 27 pg (25-34); MEAN CORPUSCULAR HGB CONC 30 g/dL (32-36); MEAN CORPUSCULAR VOLUME 92 fL (80-99); MEAN PLATELET VOLUME 9.6 fL (9.0-12.2); MONOCYTES # (AUTO) 0.6 10^3/uL (0.0-1.0); MONOCYTES % (AUTO) 10 % (0-12); NEUTROPHILS % (AUTO) 59 % (42-75); PLATELET COUNT 271 10^3/uL (130-400); WHITE BLOOD COUNT 6.8 10^3/uL (4.3-11.0)
[2021-09-18 05:07] LABS: CHLORIDE 94 MMOL/L (98-107); POTASSIUM 3.5 MMOL/L (3.6-5.0); SODIUM 138 MMOL/L (135-145)
[2021-09-18 05:08] LABS: CALCIUM 8.8 MG/DL (8.5-10.1)
[2021-09-18 05:09] LABS: GLUCOSE 227 MG/DL (70-105)
[2021-09-18 05:10] LABS: CARBON DIOXIDE 33 MMOL/L (21-32)
[2021-09-18 05:12] LABS: CREATININE SERUM 0.69 MG/DL (0.60-1.30); GFR ESTIMATED 106
[2021-09-18 05:13] LABS: BUN/CREATININE RATIO 25
[2021-09-18] MEDS ORDERED: FUROSEMIDE 40 MG/4 ML INJ (LASIX) IV ONE (06:00)
[2021-09-18] MEDS: inSUlin ASPART (NovoLOG) 1 UNIT/0.01 ML (CHARGE PER UNIT) SC SCH ×4 (06:15→22:17)
[2021-09-18] MEDS: CATHETER FLUSH 10 ML SYR IVP SCH ×3 (06:15→22:05)
[2021-09-18] MEDS: ACETAMINOPHEN 500 MG TAB (TYLENOL) PO PRN (06:34)
[2021-09-18] MEDS ORDERED: KCL 20 MEQ TAB (K-DUR) PO ONE (08:00)
[2021-09-18] MEDS ORDERED: ENOXAPARIN 40 MG/0.4 ML (LOVENOX) SYR SC SCH (08:00)
[2021-09-18] MEDS: ENOXAPARIN 60 MG/0.6 ML (LOVENOX) SYR SC SCH ×2 (08:31→22:02)
--- NOTE | 2021-09-18 09:22 | Tele-ICU Progress Note ---
Subjective Date Seen by a Provider: Sep 18, 2021 Time Seen by a Provider: 07:00 Subjective/Events-last exam This virtual visit was conducted using real time audio/video. Thank you for asking us to see this patient for respiratory insufficiency due to CHF, OHS. Also UTI Recent events: none. refuses BiPAP. PE: VSS. O2 sat 95% on 6 LPM NC. HEENT: No obvious masses, adenopathy or JVD. Chest: clear to auscultation. Diminished. CV: RRR S1 S2 No murmur or added sounds. Abd: Non-tender. Bowel sounds Y. : Unremarkable. Alcantar Y. 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 No obvious focal findings. Extremities: No edema. Capillary refill < 3 seconds. Skin: unremarkable. Results: Decreased Hb 9.7, K 3.5. B.32/69/178 onn 75%. . CXR: Cardiomeg, extensive pulm edema.. Available chart/ vitals / labs / images reviewed. Video assessment done using teleICU camera, rest of exam as per RN. A/P: Respiratory insufficiency: Continue present management with NC, albut. Monitor for increasing oxygenation needs and/or need for intubation. Critical Care: critically ill patient. Cont. abx, SSI, PRN diuretics. Lovenox added. Rerplace K. Discussed with RN Mae. Asked RN to reach out to eICU if any questions or concerns later. Time spent with patient/coordination of care with other health professionals (mins): 20 Sepsis Event Evaluation Height, Weight, BMI Height: 5'0.00" Weight: 389lbs. 0.4oz. 176.012417dh; 82.23 BMI Method:Stated Focused Exam Lactate Level 09/17/21 22:26: Lactic Acid Level 0.77 Exam Exam Patient acknowledged, consented, and participated in this virtual visit which was conducted using real time audio/video Vital Signs Date Time Temp Pulse Resp B/P (MAP) Pulse Ox O2 Delivery O2 Flow Rate FiO2 09/18/21 09:00 103 16 141/66 90 High Flow N/C 8.00 09/18/21 08:00 93 High Flow N/C 6 09/18/21 08:00 109 18 151/66 96 High Flow N/C 6.00 09/18/21 07:37 36.4 111 18 160/78 98 High Flow N/C 6.00 09/18/21 07:00 108 20 149/72 98 High Flow N/C 6.00 09/18/21 07:00 108 09/18/21 06:00 108 17 149/75 95 High Flow N/C 6.00 09/18/21 05:00 108 16 133/62 94 High Flow N/C 6.00 09/18/21 04:05 109 94 6 09/18/21 04:00 96 NIV Bilevel 50 09/18/21 04:00 110 17 132/58 94 High Flow N/C 6.00 09/18/21 03:53 High Flow N/C 6.00 09/18/21 03:00 109 14 94 NIV Bilevel 40.00 09/18/21 02:38 107 22 93 35.00 09/18/21 02:15 108 14 94 NIV Bilevel 40.00 09/18/21 01:45 109 14 147/75 96 NIV Bilevel 40.00 09/18/21 01:15 107 16 129/56 95 NIV Bilevel 40.00 09/18/21 01:00 112 12 179/72 97 NIV Bilevel 40.00 09/18/21 00:51 36.5 106 16 177/66 95 NIV Bilevel 40.00 09/18/21 00:40 113 09/18/21 00:30 110 12 184/91 97 NIV Bilevel 40.00 09/18/21 00:15 96 NIV Bilevel 50 09/17/21 23:55 36.0 81 20 134/83 100 NIV Bilevel 09/17/21 22:25 100 NIV Bilevel 09/17/21 21:27 111 20 100 50.00 09/17/21 21:11 36.0 110 25 171/80 (110) 100 NIV Bilevel I & O 09/18/21 07:00 Intake Total 500 ml Output Total 1650 ml Balance -1150 ml Height & Weight Height: 5'0.00" Weight: 389lbs. 0.4oz. 176.807898tc; 82.23 BMI Method:Stated General Appearance: No Apparent Distress, Obese (SUPERMORIBDLY OBESE--WEIGHT > 450 LBS. ), Other (MILDLY LETHARGIC AND MOANING ON ARRIVAL, BUT PT IS AWAKE AND ABLE TO ANSWER QUESTIONS. SOMEWHAT HOSTILE. ) Respiratory: Normal Breath Sounds, No Respiratory Distress Cardiovascular: Tachycardia Capillary Refill: Less Than 3 Seconds Extremity: Other (UNABLE TO DETERMINE OF EDEMA IS PRESENT DUE TO BODY HABITUS. DOES HAVE DIFFUSE TENDERNESS TO LEFT FOOT AND ANKLE, WITH MULTIPLE OLD / HEALED SURGICAL SCARS. NO SIGNS OF RECENT TRAUMA. MOTOR/SENSORY/VASCULAR INTACT, BUT HAS GENERALIZED LIMITED ROM OF ALL EXTREMITIES DUE TO BODY HABITUS) Neurologic/Psychiatric: Alert, Oriented x3 Skin: Normal Color, Warm/Dry, Rash (EXTENSIVE ANIKA INTERTRIGO TO INGUINAL AREA/ABDOMINAL FOLDS/UNDER BREASTS), Tattoos/Piercings Results Lab Laboratory Tests 09/17/21 22:26 09/18/21 04:18 Assessment/Plan Assessment/Plan See free text. Critical Care: Critically Ill Patient YIN VEGA MD Sep 18, 2021 09:22
[2021-09-18] MEDS: RT-ALBUTEROL SULF 2.5 MG/3 ML PRE-MIX VIAL INH SCH ×3 (09:27→21:42)
[2021-09-18 09:36] VITALS: BP_DIAS 141
[2021-09-18] MEDS: morphine INJ 10 MG/ML 1ML (SYR OR VIAL) IVP PRN ×2 (09:45→16:52)
[2021-09-18] MEDS: BACLOFEN 10 MG (LIORESAL) TAB PO SCH ×2 (13:08→22:02)
--- NOTE | 2021-09-18 13:48 | History & Physical ---
MASHA WALTERS 09/18/21 1348: History of Present Illness History of Present Illness Reason for visit/HPI Pt is a 51yo female w/PMH HTN, HLD, IDDM, Obesity hypoventilation syndrome and MARIA ISABEL who presented to ER yesterday with L foot pain and chest pain following a fall as well as some shortness of breath. She was here last year with similar issues and hospice was set up but she did not follow through using it. She was also set up with BiPAP at that time but it was taken due to lack of usage. She reluctantly allowed RT to set her up with BiPAP this morning in the ICU. Date of Admission Sep 17, 2021 at 23:15 Date Seen by a Provider: Sep 18, 2021 Time Seen by a Provider: 09:30 I consulted on this patient on 09/18/21 13:42 Attending Physician Wanda Reilly MD Admitting Physician No,Local Physician Consult Allergies and Home Medications Allergies Coded Allergies: [place] And Derivatives (Verified Allergy, Intermediate, 12/19/20) MAKES TONGUE BREAK OUT duloxetine (Verified Allergy, Unknown, 03/17/20) tramadol (Verified Allergy, Unknown, 03/17/20) butorphanol (Unverified Adverse Reaction, Severe, 08/04/18) HALLUCINATIONS Penicillins (Unverified Adverse Reaction, Unknown, NAUSEA, 08/04/18) Patient Home Medication List Albuterol Sulfate (Albuterol Sulfate) 2.5 Mg/3 Ml Vial.neb, 2.5 MG INH TID PRN for SHORTNESS OF BREATH, (Reported) Entered as Reported by: LUIS MATHIS on 08/04/18 173 Albuterol Sulfate (Proventil Hfa) 6.7 Gm Hfa.aer.ad, 2 PUFF INH Q6H PRN for SHORTNESS OF BREATH, (Reported) Entered as Reported by: LUIS MATHIS on 08/04/18 173 Aspirin (Aspirin EC) 81 Mg Tablet.dr, 81 MG PO DAILY, (Reported) Entered as Reported by: SAMEER BUTTS on 11/19/20 1054 Atorvastatin Calcium (Atorvastatin Calcium) 40 Mg Tablet, 40 MG PO HS, (Rep orted) Entered as Reported by: LUIS MATHIS on 08/04/18 173 Baclofen (Baclofen) 10 Mg Tablet, 10 MG PO HS, (Reported) Entered as Reported by: SAMEER BUTTS on 10/14/20 1536 Cefuroxime Axetil (Cefuroxime) 250 Mg Tablet, 250 MG PO BID Prescribed by: NATE BASSETT on 06/28/21 1855 Diclofenac Sodium (Diclofenac Sodium) 100 Gm Gel..gram., 100 GM TP QID PRN for PAIN-MILD (1-4), (Reported) Entered as Reported by: SHERIF GUPTA on 12/20/20 1444 Divalproex Sodium (Divalproex Sodium ER) 500 Mg Tab.er.24h, 500 MG PO BID, (Reported) Entered as Reported by: LUIS MATHIS on 08/04/18 1734 Furosemide (Furosemide) 40 Mg Tablet, 40 MG PO TID, (Reported) Entered as Reported by: SAMEER BUTTS on 10/14/20 1536 Hydrochlorothiazide (Hydrochlorothiazide) 25 Mg Tablet, 25 MG PO DAILY, (Reported) Entered as Reported by: SAMEER BUTTS on 10/14/20 1536 Insulin Aspart (Insulin Aspart) 100 Unit/1 Ml Vial, UNIT SQ AC, (Reported) Entered as Reported by: ALIX RIOS on 12/18/20 0239 Ipratropium/Albuterol Sulfate (Iprat-Albut 0.5-3(2.5) mg/3 ml) 3 Ml Ampul.neb, 3 ML IH Q4H PRN for SHORTNESS OF BREATH Prescribed by: LEATHA ENGLISH on 01/21/21 1737 Levothyroxine Sodium (Levothyroxine Sodium) 200 Mcg Tablet, 200 MCG PO DAILY, (Reported) Entered as Reported by: SAMEER BUTTS on 10/14/20 1536 Losartan Potassium (Losartan Potassium) 100 Mg Tablet, 100 MG PO DAILY, (Reported) Entered as Reported by: SAMEER BUTTS on 10/14/20 1536 Metoprolol Tartrate (Metoprolol Tartrate) 100 Mg Tablet, 100 MG PO BID, (Reported) Entered as Reported by: LUIS MATHIS on 08/04/18 1734 Naproxen (Naproxen) 500 Mg Tablet, 500 MG PO BID, (Reported) Entered as Reported by: SAMEER BUTTS on 10/14/20 1536 Nitrofurantoin Monohyd/M-Cryst (Nitrofurantoin Henry-Mcr 100 mg) 100 Mg Capsule, 100 MG PO BID Prescribed by: DEMARCO LOPEZ on 12/21/20 1150 Ondansetron (Ondansetron Odt) 4 Mg Tab.rapdis, 4 MG SL Q8H PRN for NAUSEA-1ST LINE, (Reported) Entered as Reported by: ALIX RIOS on 12/18/20 0239 Pantoprazole Sodium (Pantoprazole Sodium) 40 Mg Tablet.dr, 40 MG PO DAILY, (Reported) Entered as Reported by: SAMEER BUTTS on 10/14/20 1536 Potassium Chloride (Potassium Chloride) 20 Meq Tablet.er, 20 MCG PO DAILY, (Reported) Entered as Reported by: ALIX RIOS on 12/18/20 0239 Pramipexole Di-HCl (Pramipexole Dihydrochloride) 1 Mg Tablet, 1 MG PO HS, (Reported) Entered as Reported by: SAMEER BUTTS on 10/14/20 1536 Prednisone (Prednisone) 20 Mg Tab, 40 MG PO DAILY Prescribed by: NATE BASSETT on 06/28/21 1855 Pregabalin (Pregabalin) 200 Mg Capsule, 200 MG PO BID, (Reported) Entered as Reported by: SAMEER BUTTS on 11/19/20 1054 Solifenacin Succinate (Vesicare) 5 Mg Tablet, 5 MG PO DAILY, (Reported) Entered as Reported by: ALIX RIOS on 12/18/20 0304 Sumatriptan Succinate (Sumatriptan Succinate) 100 Mg Tablet, 100 MG PO UD PRN for MIGRAINE, (Reported) Entered as Reported by: LUIS MTAHIS on 08/04/18 1734 [bipap] , EA INH DAILY PRN, (DME) Prescribed by: LEATHA ENGLISH on 01/21/21 1737 Past Zyqywti-Bhleyt-Kfohfy Hx Immunizations Up To Date Date of Influenza Vaccine: Apr 29, 2021 First/Initial COVID19 Vaccinat: AUGUST 2020 Second COVID19 Vaccination Mamadou: SEPTEMBER 2020 Tetanus Booster (TDap): Unknown PED Vaccines UTD: Yes Seasonal Allergies Seasonal Allergies: No Current Status status: No Primary Language: [place] Citizen Preferred Spoken Language: [place] Citizen Past Medical History Surgeries: Cardiac, Section, Gallbladder, Orthopedic, Tubal Ligation Asthma, Pneumonia, Chronic Bronchitis, Sleep Apnea, COPD Currently Using CPAP: No Currently Using BIPAP: No Coronary Artery Disease, Heart Attack, High Cholesterol, Hypertension, Irregular Heartbeat Headaches /Migraines, Neuropathy, Seizure Disorder, Stroke 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 Ligation UTI-Chronic Ulcer, Gall Bladder Disease Fibromyalgia, Scoliosis, Chronic Back Pain Diabetes, Insulin dep, Hypothyroidsim Anxiety, Depression Blood Disorders: No Hypertension Hypothyroidism Super super obesity Presumed obstructive sleep apnea Presumed obesity hypoventilation syndrome Family Medical History SOCIAL HISTORY: -ETOH--OCCASIONAL USE -DRUGS--HX OF IV METHAMPHETAMINE USE -SMOKED 1/2 PPD FROM AGE 19 TO 23 PAST SURGICAL HISTORY: -BACK SURGERY FOR SCOLIOSIS AGE 15 -LEFT FOOT RECONSTRUCTION BECAUSE OF PROBLEM WITH ARCH OF FOOT - X 2 -EGD -CARDIAC ABLATION FOR SVT -CHOLECYSTECTOMY -BILATERAL TUBAL LIGATION ADDITIONAL PAST MEDICAL HISTORY: -CLAIMS SHE HAD A "STRESS HEART ATTACK" AT AGE 27--NO CARDIAC CATH, BUT HAD STRESS TEST AND ECHOCARDIOGRAM -SEIZURES DX AGE 33 -HAD POSSIBLE STROKE WITH ONE SEIZURE-HAD LEFT SIDE PARALYSIS FOR 2 WEEKS, COMPLETELY RESOLVED -PERIPHERAL NEUROPATHY -CHRONIC LEFT FOOT NUMBNESS SINCE LEFT FOOT SURGERY -IMPAIRED MOBILITY--HAS USED WALKER, WHEELCHAIR AND MOTORIZED WHEELCHAIR--NOW ESSENTALLY BED BOUND DUE TO SUPER MORBID OBESITY AND CHRONIC GENERALIZED PAIN AND LEG AND FOOT PAIN LONG HISTORY OF NON-COMPLIANCE IN ALL ASPECTS OF CARE Review of Systems Constitutional: No chills, No diaphoresis Respiratory: short of breath Gastrointestinal: No nausea, No vomiting Musculoskeletal: other (L foot pain) Physical Exam Vital Signs Vital Signs - First Documented 09/17/21 09/17/21 09/18/21 21:11 21:27 00:15 Temp 36.0 Pulse 110 Resp 25 B/P (MAP) 171/80 (110) Pulse Ox 100 O2 Delivery NIV Bilevel O2 Flow Rate 50.00 FiO2 50 Capillary Refill : Less Than 3 Seconds Height, Weight, BMI Height: 5'0.00" Weight: 389lbs. 0.4oz. 176.398537ji; 82.23 BMI Method:Stated General Appearance: Obese (super super obesity) HEENT: PERRL/EOMI Neck: Normal Inspection, Non Tender Respiratory: Lungs Clear Cardiovascular: Normal Peripheral Pulses, Tachycardia Gastrointestinal: Normal Bowel Sounds, Non Tender, Soft Extremity: Other (unable to determine if pedal edema due to body habitus) Neurologic/Psychiatric: Alert, Oriented x3 Assessment/Plan Assessment and Plan Acute on chronic respiratory failure with hypoxia and hypercapnia Obesity hypoventilation syndrome Obstructive sleep apnea Super super obesity ABG with hypoxia and hypercapnia Chest imaging with mild/moderate edema and cardiomegaly O2 sats were 90% on 8L via nasal cannula, started BiPAP this morning which improved sats to 97% Will continue using BiPAP as needed UTI - Rocephin CHF - Torsemide HTN IDDM Hypothyroidism Continue home meds L Foot/ankle pain Moderate swelling on imaging but no fractures Pain control DVT prophylaxis: Lovenox Admission Diagnosis Acute on chronic respiratory failure with hypoxia and hypercapnia obesity hypoventilation syndrome Admission Status: Inpatient Order (span 2 midnights) Reason for Inpatient Admission: BiPAP WANDA REILLY MD 09/18/212109: Allergies and Home Medications Allergies Coded Allergies: [place] And Derivatives (Verified Allergy, Intermediate, 12/19/20) MAKES TONGUE BREAK OUT duloxetine (Verified Allergy, Unknown, 03/17/20) tramadol (Verified Allergy, Unknown, 03/17/20) butorphanol (Unverified Adverse Reaction, Severe, 08/04/18) HALLUCINATIONS Penicillins (Unverified Adverse Reaction, Unknown, NAUSEA, 08/04/18) Patient Home Medication List Home Medication List Reviewed: Yes Albuterol Sulfate (Albuterol Sulfate) 2.5 Mg/3 Ml Vial.neb, 2.5 MG INH TID PRN for SHORTNESS OF BREATH, (Reported) Entered as Reported by: LUIS MATHIS on 08/04/18 1734 Albuterol Sulfate (Proventil Hfa) 6.7 Gm Hfa.aer.ad, 2 PUFF INH Q6H PRN for SHORTNESS OF BREATH, (Reported) Entered as Reported by: LUIS MATHIS on 08/04/18 1734 Aspirin (Aspirin EC) 81 Mg Tablet.dr, 81 MG PO DAILY, (Reported) Entered as Reported by: SAMEER BUTTS on 11/19/20 1054 Atorvastatin Calcium (Atorvastatin Calcium) 40 Mg Tablet, 40 MG PO HS, (Reported) Entered as Reported by: LUIS MATHIS on 08/04/18 1734 Baclofen (Baclofen) 10 Mg Tablet, 10 MG PO HS, (Reported) Entered as Reported by: SAMEER BUTTS on 10/14/20 1536 Cefuroxime Axetil (Cefuroxime) 250 Mg Tablet, 250 MG PO BID Prescribed by: NATE BASSETT on 06/28/21 1855 Diclofenac Sodium (Diclofenac Sodium) 100 Gm Gel..gram., 100 GM TP QID PRN for PAIN-MILD (1-4), (Reported) Entered as Reported by: SHERIF GUPTA on 12/20/20 1444 Divalproex Sodium (Divalproex Sodium ER) 500 Mg Tab.er.24h, 500 MG PO BID, (Reported) Entered as Reported by: LUIS MATHIS on 08/04/18 1734 Furosemide (Furosemide) 40 Mg Tablet, 40 MG PO TID, (Reported) Entered as Reported by: SAMEER BUTTS on 10/14/20 1536 Hydrochlorothiazide (Hydrochlorothiazide) 25 Mg Tablet, 25 MG PO DAILY, (Reported) Entered as Reported by: SAMEER BUTTS on 10/14/20 1536 Insulin Aspart (Insulin Aspart) 100 Unit/1 Ml Vial, UNIT SQ AC, (Reported) Entered as Reported by: ALIX RIOS on 12/18/20 0239 Ipratropium/Albuterol Sulfate (Iprat-Albut 0.5-3(2.5) mg/3 ml) 3 Ml Ampul.neb, 3 ML IH Q4H PRN for SHORTNESS OF BREATH Prescribed by: LEATHA ENGLISH on 01/21/21 1737 Levothyroxine Sodium (Levothyroxine Sodium) 200 Mcg Tablet, 200 MCG PO DAILY, (Reported) Entered as Reported by: SAMEER BUTTS on 10/14/20 153 Losartan Potassium (Losartan Potassium) 100 Mg Tablet, 100 MG PO DAILY, (Reported) Entered as Reported by: SAMEER BUTTS on 10/14/20 1536 Metoprolol Tartrate (Metoprolol Tartrate) 100 Mg Tablet, 100 MG PO BID, ( Reported) Entered as Reported by: LUIS MATHIS on 08/04/18 173 Naproxen (Naproxen) 500 Mg Tablet, 500 MG PO BID, (Reported) Entered as Reported by: SAMEER BUTTS on 10/14/20 1536 Nitrofurantoin Monohyd/M-Cryst (Nitrofurantoin Henry-Mcr 100 mg) 100 Mg Capsule, 100 MG PO BID Prescribed by: DEMARCO LOPEZ on 12/21/20 1150 Ondansetron (Ondansetron Odt) 4 Mg Tab.rapdis, 4 MG SL Q8H PRN for NAUSEA-1ST LINE, (Reported) Entered as Reported by: ALIX RIOS on 12/18/20 0239 Pantoprazole Sodium (Pantoprazole Sodium) 40 Mg Tablet.dr, 40 MG PO DAILY, (Reported) Entered as Reported by: SAMEER BUTTS on 10/14/20 1536 Potassium Chloride (Potassium Chloride) 20 Meq Tablet.er, 20 MCG PO DAILY, (Reported) Entered as Reported by: ALIX RIOS on 12/18/20 0239 Pramipexole Di-HCl (Pramipexole Dihydrochloride) 1 Mg Tablet, 1 MG PO HS, (Reported) Entered as Reported by: SAMEER BUTTS on 10/14/20 1536 Prednisone (Prednisone) 20 Mg Tab, 40 MG PO DAILY Prescribed by: NATE BASSETT on 06/28/21 1855 Pregabalin (Pregabalin) 200 Mg Capsule, 200 MG PO BID, (Reported) Entered as Reported by: SAMEER BUTTS on 11/19/20 1054 Solifenacin Succinate (Vesicare) 5 Mg Tablet, 5 MG PO DAILY, (Reported) Entered as Reported by: ALIX RIOS on 12/18/20 0304 Sumatriptan Succinate (Sumatriptan Succinate) 100 Mg Tablet, 100 MG PO UD PRN for MIGRAINE, (Reported) Entered as Reported by: LUIS MATHIS on 08/04/18 1734 [bipap] , EA INH DAILY PRN, (DME) Prescribed by: LEATHA ENGLISH on 01/21/21 1737 Past Sufbvod-Akbrqc-Ygkcra Hx Past Medical History Sleep Apnea Family Medical History No Pertinent Family Hx Assessment/Plan Assessment and Plan Presented with weakness. Admitted with acute hypercapnic respiratory failure. Also started on Rocephin for UTI. Problems: (1) Acute and chronic respiratory failure ([id number]) Status: Acute Qualifiers: Qualified Codes: J96.21 - Acute and chronic respiratory failure with hypoxia; J96.22 - Acute and chronic respiratory failure with hypercapnia (2) Obesity hypoventilation syndrome Status: Chronic (3) MARIA ISABEL (obstructive sleep apnea) Status: Chronic (4) Super-super obese Status: Chronic (5) UTI (urinary tract infection) Status: Acute (6) Debility Status: Chronic Supervisory-Addendum Brief Verification & Attestation Participated in pt care: history, MDM, physical Personally performed: exam, history, MDM, supervision of care Care discussed with: Medical Student Procedures: n/a Results interpretation: Verified all documentation A medical student performed and documented this service in my presence. I reviewed and verified all information documented by the medical student and made modifications to such information, when appropriate. I personally performed the physical exam and medical decision making. MASHA WALTERS Sep 18, 2021 13:48 WANDA REILLY MD Sep 18, 2021 21:10
[2021-09-18] MEDS: diphenhydrAMINE 25 MG TAB (BENADRYL) PO PRN (16:51)
[2021-09-18] MEDS: TORSEMIDE 20 MG (DEMADEX) TAB PO SCH (16:52)
[2021-09-18] MEDS: PREGABALIN 100 MG (LYRICA) CAPSULE PO SCH (22:02)
[2021-09-18] MEDS: meTOprolol TARTRATE 50 MG (LOPRESSOR) TAB PO SCH (22:02)
[2021-09-18] MEDS: PRAMIPEXOLE 0.5 MG TAB (MIRAPEX) PO SCH (22:03)
[2021-09-18] MEDS: MICONAZOLE 2% POWDER (DESENEX AF) 90 GM TOP SCH (22:05)
[2021-09-18] MEDS: DIVALPROEX EXT RELEASE 500 MG (DEPAKOTE ER) TAB PO SCH (22:05)
[2021-09-18] MEDS: cefTRIAXone 1 GM IV (PRE-MIX) 50 ML IV SCH (22:05)
[2021-09-19 02:34] VITALS: BP_DIAS 126
[2021-09-19] MEDS: RT-ALBUTEROL SULF 2.5 MG/3 ML PRE-MIX VIAL INH SCH ×4 (02:34→21:26)
[2021-09-19 04:59] LABS: POTASSIUM 3.7 MMOL/L (3.6-5.0)
[2021-09-19 05:05] LABS: CREATININE SERUM 0.72 MG/DL (0.60-1.30)
[2021-09-19] MEDS: POTASSIUM CL 10MEQ/50ML IVPB 50 ML IV SCH (06:07)
[2021-09-19] MEDS: MAGNESIUM 1 GM/100 ML IVPB 100 ML IV SCH (06:07)
[2021-09-19] MEDS: KCL 20 MEQ TAB (K-DUR) PO SCH (06:08)
[2021-09-19] MEDS: inSUlin ASPART (NovoLOG) 1 UNIT/0.01 ML (CHARGE PER UNIT) SC SCH ×4 (06:10→21:44)
[2021-09-19] MEDS: CATHETER FLUSH 10 ML SYR IVP SCH ×3 (06:10→21:46)
[2021-09-19] MEDS: TORSEMIDE 20 MG (DEMADEX) TAB PO SCH ×2 (06:41→16:43)
[2021-09-19] MEDS: LEVOTHYROXINE 150 MCG (LEVOTHROID) TAB PO SCH (06:41)
[2021-09-19] MEDS: morphine INJ 10 MG/ML 1ML (SYR OR VIAL) IVP PRN ×3 (06:57→22:07)
[2021-09-19] MEDS: meTOprolol TARTRATE 50 MG (LOPRESSOR) TAB PO SCH ×2 (07:57→21:45)
[2021-09-19] MEDS: BACLOFEN 10 MG (LIORESAL) TAB PO SCH ×3 (07:57→21:45)
[2021-09-19] MEDS: PANTOPRAZOLE 40 MG (PROTONIX) TAB PO SCH (07:57)
[2021-09-19] MEDS: ENOXAPARIN 60 MG/0.6 ML (LOVENOX) SYR SC SCH ×2 (07:57→21:44)
[2021-09-19] MEDS: PREGABALIN 100 MG (LYRICA) CAPSULE PO SCH ×2 (07:58→21:45)
[2021-09-19] MEDS: LOSARTAN 100 MG (COZAAR) TABLET PO SCH (07:58)
--- NOTE | 2021-09-19 09:13 | Progress Note - Hospitalist ---
Subjective HPI/CC On Admission Date Seen by Provider: Sep 19, 2021 Time Seen by Provider: 09:06 Subjective/Events-last exam Pt reports being upset this morning. She states she is upset with her nurse because he "can't take a joke" and is requesting a new nurse. Informed her that I would pass this along to the steam blocker. She states she is breathing better and is wanting to get better and work with PT but that he her wants to sign her out AMA. Informed her that she has decision making capacity at this time and would be the one to make that decision. Focused Exam Lactate Level 09/17/21 22:26: Lactic Acid Level 0.77 Objective Exam Vital Signs Vital Signs Date Time Temp Pulse Resp B/P (MAP) Pulse Ox O2 Delivery O2 Flow Rate FiO2 09/19/21 08:04 37.0 85 18 166/69 98 High Flow N/C 8.00 09/19/21 00:00 40 Capillary Refill : Less Than 3 Seconds General Appearance: Chronically ill, Obese Respiratory: No Accessory Muscle Use, Decreased Breath Sounds; No Wheezing Cardiovascular: Regular Rate, Rhythm, No Murmur Gastrointestinal: Normal Bowel Sounds, Non Tender, Soft Extremity: Pedal Edema, Swelling Neurologic/Psychiatric: Alert, Oriented x3 Results/Procedures Lab Laboratory Tests 09/19/21 04:03 Patient resulted labs reviewed. Assessment/Plan Assessment and Plan Assess & Plan/Chief Complaint Acute on chronic respiratory failure with hypoxia and hypercapnia Obesity hypoventilation syndrome Obstructive sleep apnea Super super obesity CHF Complied with BiPAP overnight but does not wear it during the day Chest imaging with mild/moderate edema and cardiomegaly PT/OT Pulm/TeleICU consulted, appreciate recs MAT Protocol UTI Rocephin Culture with GNR so far HTN IDDM Hypothyroidism Continue home meds SSI DVT prophylaxis: Lovenox Critical Care Critically Ill Patient EBONIE MCCLENDON MD Sep 19, 2021 09:12
[2021-09-19] MEDS: SPIRONOLACTONE 100 MG (ALDACTONE) TABLET PO SCH (09:29)
[2021-09-19] MEDS: DIVALPROEX EXT RELEASE 500 MG (DEPAKOTE ER) TAB PO SCH (09:29)
[2021-09-19] MEDS: diphenhydrAMINE 25 MG TAB (BENADRYL) PO PRN (09:33)
--- NOTE | 2021-09-19 09:56 | Tele-ICU Progress Note ---
Subjective Date Seen by a Provider: Sep 19, 2021 Time Seen by a Provider: 09:55 Subjective/Events-last exam (Tele-ICU Physician , Progress Note ) Available chart/ vitals / labs / Images reviewed Video assessment done using teleICU camera, rest of exam as per RN Discussed with RN , EXAM PER RN Events overnight : Afebrile FiO2 - I/O = neg Drips: Pressors: , hemodynamically stable Consultants: Hospital course: (09/17) 51F admitted for CHF, multiple falls, chronic pain, super morbid obesity (>450lbs), hypoventilation syndrome, UTI. 09/19- A/P Acute on chronic resp fail;ure - BIPAP at night and PRN = [facility]/MARIA ISABEL= noncompliant at home with BiPAP - does not have it at home now S/p Fall - foot pain , no Fr on xray UTI- GNR = rocephin DM II - ISS ECHO 2018 - EF 50% , RVSP 25 - conty diuresis h/o CVA ? / sz - cont depacote Lines : (Central Line Necessity Reviewed) Analgesia: Anxiety/ delirium VTE Prophylaxis: 60 q 12 Stress Ulcer Prophylaxis: po Plans in collaboration with bedside consultants and IM MDs. Discussed with RN to reach out if any questions or concerns A total of 25 minutes of critical care time was devoted to this patient today, required to treat and/or prevent further deterioration of critical care condition ( as above) . Sepsis Event Evaluation Height, Weight, BMI Height: 5'0.00" Weight: 389lbs. 0.4oz. 176.307823nm; 82.23 BMI Method:Stated Focused Exam Lactate Level 09/17/21 22:26: Lactic Acid Level 0.77 Exam Exam Patient acknowledged, consented, and participated in this virtual visit which was conducted using real time audio/video Vital Signs Date Time Temp Pulse Resp B/P (MAP) Pulse Ox O2 Delivery O2 Flow Rate FiO2 09/19/21 08:04 37.0 85 18 166/69 98 High Flow N/C 8.00 09/19/21 08:02 High Flow N/C 8.00 09/19/21 07:00 87 09/19/21 07:00 87 14 181/89 97 High Flow N/C 8.00 09/19/21 04:00 36.7 High Flow N/C 8.00 09/19/21 04:00 82 18 165/89 99 High Flow N/C 8.00 09/19/21 04:00 High Flow N/C 8.00 09/19/21 02:34 72 22 95 40.00 09/19/21 01:00 66 09/19/21 00:00 NIV Bilevel 40 09/19/21 00:00 63 37 148/80 97 NIV Bilevel 40.00 09/19/21 00:00 36.5 09/18/21 22:00 NIV Bilevel 40.00 09/18/21 21:42 94 High Flow N/C 6.00 09/18/21 20:00 96 10 160/97 90 High Flow N/C 8.00 09/18/21 20:00 36.8 09/18/21 20:00 High Flow N/C 8.00 09/18/21 19:00 107 09/18/21 18:00 100 16 139/112 99 High Flow N/C 8.00 09/18/21 17:00 98 14 158/82 95 High Flow N/C 8.00 09/18/21 16:00 93 High Flow N/C 8 09/18/21 16:00 101 14 157/87 96 High Flow N/C 8.00 09/18/21 15:15 95 High Flow N/C 6.00 09/18/21 15:00 94 15 165/85 98 High Flow N/C 8.00 09/18/21 14:54 96 14 155/92 97 High Flow N/C 8.00 09/18/21 14:00 95 14 156/99 96 NIV Bilevel 45.00 09/18/21 13:00 96 14 155/92 97 NIV Bilevel 45.00 09/18/21 13:00 103 09/18/21 12:30 High Flow N/C 8.00 09/18/21 12:30 NIV Bilevel 45.00 09/18/21 12:00 98 16 144/73 97 NIV Bilevel 45.00 09/18/21 12:00 93 High Flow N/C 6 09/18/21 11:39 36.6 09/18/21 11:00 97 135/74 95 NIV Bilevel 45.00 09/18/21 10:19 NIV Bilevel 45.00 09/18/21 10:00 99 128/60 89 NIV Bilevel 35.00 I & O 09/19/21 07:00 Intake Total 2650 ml Output Total 3890 ml Balance -1240 ml Height & Weight Height: 5'0.00" Weight: 389lbs. 0.4oz. 176.574522me; 82.23 BMI Method:Stated General Appearance: Chronically ill, Obese HEENT: PERRL/EOMI Neck: Normal Inspection, Non Tender Respiratory: No Accessory Muscle Use, Decreased Breath Sounds; No Wheezing Cardiovascular: Regular Rate, Rhythm, No Murmur Capillary Refill: Less Than 3 Seconds Extremity: Pedal Edema, Swelling Neurologic/Psychiatric: Alert, Oriented x3 Skin: Normal Color, Warm/Dry, Rash (EXTENSIVE ANIKA INTERTRIGO TO INGUINAL AREA/ABDOMINAL FOLDS/UNDER BREASTS), Tattoos/Piercings Results Lab Laboratory Tests 09/17/21 22:26 09/18/21 04:18 09/19/21 04:03 Assessment/Plan Assessment/Plan . ARMEN BLUM MD Sep 19, 2021 09:56
[2021-09-19] MEDS: MICONAZOLE 2% POWDER (DESENEX AF) 90 GM TOP SCH ×2 (13:08→21:45)
[2021-09-19] MEDS ORDERED: DIVA-76 PO (14:09)
[2021-09-19] MEDS ORDERED: SOLI5TAB7 PO (14:09)
[2021-09-19] MEDS ORDERED: BACL20TA PO (14:09)
[2021-09-19] MEDS ORDERED: MENT113P TP (14:09)
[2021-09-19] MEDS ORDERED: DICL100G13 TOP (14:09)
[2021-09-19] MEDS ORDERED: MENT71OI TOP (14:09)
[2021-09-19] MEDS ORDERED: LEVO25TA5 PO (14:09)
--- NOTE | 2021-09-19 15:40 | Physical Therapy Evaluation ---
PT Evaluation-General Medical Diagnosis Admission Date Sep 17, 2021 at 23:15 Medical Diagnosis: respiratory failure Onset Date: Sep 17, 2021 Therapy Diagnosis Therapy Diagnosis: debility/weakness Height/Weight Height (Feet): 5 Height (Inches): 0.00 Weight (Pounds): 389 Weight (Ounces): 0.4 Precautions Precautions/Isolations: Fall Prevention, Standard Precautions Referral Physician: Mary Reason for Referral: Evaluation/Treatment Medical History Pertinent Medical History: CAD, COPD, DM, Heart Failure, HTN, Hypothroidism, [place], Neuropathy, Smoking Additional Medical History Super Obesity Current History EMS secondary to decreased mobility and falls (fire department has been called multiple time to the home due to falls) Reviewed History: Yes Social History Home: Single Level Current Living Status: Spouse Entry Into Home: Ramp Prior Prior Level of Function SCALE: Activities may be completed with or without assistive devices. 2-Nmmzysarey-ipjeinl completes the activity by him/herself with no assistance from a helper. 5-Set-up or Clean-up Assistance-helper sets up or cleans up; patient completes activity. [place] assists only prior to or following the activity. 4-Supervision or Touching Assistance-helper provides verbal cues and/or touching/steadying and/or contact guard assistance as patient completes activity. Assistance may be provided throughout the activity or intermittently. 3-Partial/Moderate Assistance-helper does LESS THAN HALF the effort. [place] lifts, holds or supports trunk or limbs, but provides less than half the effort. 2-Substantial/Maximal Assistance-helper does MORE THAN HALF the effort. [place] lifts or holds trunk or limbs and provides more than half the effort. 7-Safovrejo-akqwdh does ALL the effort. Patient does none of the effort to complete the activity. Or, the assistance of 2 or more helpers is required for the patient to complete the activity. If activity was not attempted, code reason: 7-Patient Refused. 9-Not Applicable-not attempted and the patient did not perform the activity before the current illness, exacerbation or injury. 10-Not Attempted due to Environmental Limitations-(lack of equipment, weather restraints, etc.). 88-Not Attempted due to Medical Conditions or Safety Concerns. Bed Mobility: 2 Transfers (B,C,W/C): 3 Gait: 9 Stairs: 9 Wheelchair Mobility: 2 Indoor Mobility (Ambulation): Not [place] Stairs: Not [place] Prior Devices Use: Manual wheelchair, Motorized wheelchair, Walker PT Evaluation-Current Subjective Patient agrees to PT. Objective Patient Orientation: Normal For Age Attachments: Oxygen, Alcantar Catheter ROM/Strength ROM Lower Extremities bilateral LE limited due to super morbid obesity Strength Lower Extremities 3+/5 grossly bilateral LE Integumentary/Posture Bladder Incontinence: Alcantar Cath Posture trunk flexed posture Neuromuscular (Tone, Coordination, Reflexes) grossly intact Sensory Vision: Functional Hearing: Functional Transfers Sit to Lying (QC): 4 Lying to Sitting/Side of Bed(Q: 3 Sit to Stand (QC): 3 patient stood to FWW on platform x 3 sets and was able to scoot self up toward HOB SBA to independent Balance Sitting Static: Normal Sitting Dynamic: Normal Standing Static: Fair Standing Dynamic: Fair Assessment/Needs 51 y.o. female, will be seen short term by skilled PT to address functional strength and mobility. Patient did perform sit to stand to FWW x 3 sets CGA to minimal assist. Rehab Potential: Fair PT Oil Dipper Goals Oil Dipper Goals PT Oil Dipper Goals Time Frame: Oct 01, 2021 Roll Left & Right (QC): 4 Sit to Lying (QC): 4 Lying-Sitting on Side/Bed(QC): 4 Sit to Stand (QC): 4 Chair/Chy-bi-Ehhqo Xfer(QC): 4 PT Plan Problem List Problem List: Activity Tolerance, Functional Strength, Safety, Balance, Transfer, Bed Mobility Treatment/Plan Treatment Plan: Continue Plan of Care Treatment Plan: Bed Mobility, Education, Functional Activity Tatiana, Functional Strength, Safety, Therapeutic Exercise, Transfers Treatment Duration: Oct 01, 2021 Frequency: 6 times per week Estimated Hrs Per Day: .25 hour per day Patient and/or Family Agrees t: Yes Time/GCodes Time In: 1505 Time Out: 1530 Total Billed Treatment Time: 25 Total Billed Treatment 1 visit EVModC 10 min FA 15 min WARREN MUNIZ PT Sep 19, 2021 15:40
--- NOTE | 2021-09-19 15:51 | Occupational Therapy Eval ---
OT Evaluation-General/PLF Medical Diagnosis Admission Date Sep 17, 2021 at 23:15 Medical Diagnosis: respiratory failure Onset Date: Sep 17, 2021 Therapy Diagnosis Therapy Diagnosis: decreased ADL status, weakness Height/Weight Height (Feet): 5 Height (Inches): 0.00 Weight (Pounds): 389 Weight (Ounces): 0.4 Precautions Precautions/Isolations: Fall Prevention, Standard Precautions Referral Physician: Mary Referral Reason: Evaluation/Treatment Medical History Pertinent Medical History: CAD, COPD, DM, Heart Failure, HTN, Hypothroidism, [place], Neuropathy, Smoking Additional Medical History HTN, HLD, DM, obesity, hypoventilation syndrome, MARIA IS[place]EL, asthma, PNA, chronic bronchitis, neuropathy, seizures, CVA, headache, fibromyalgia, anxiety/depression Current History ED with L foot pain following fall and SOB. No fractures shown on x-ray Social History Home: Single Level Current Living Status: Spouse Entry Into Home: Ramp Steps Into Home: 2 Pt indicates they have a ramp but it is very steep. ADL-Prior Level of Function SCALE: Activities may be completed with or without assistive devices. 6-Bkfnabynsg-dwcpifi completes the activity by him/herself with no assistance from a helper. 5-Set-up or Clean-up Assistance-helper sets up or cleans up; patient completes activity. [place] assists only prior to or following the activity. 4-Supervision or Touching Assistance-helper provides verbal cues and/or touching/steadying and/or contact guard assistance as patient completes activity. Assistance may be provided throughout the activity or intermittently. 3-Partial/Moderate Assistance-helper does LESS THAN HALF the effort. [place] lifts, holds or supports trunk or limbs, but provides less than half the effort. 2-Substantial/Maximal Assistance-helper does MORE THAN HALF the effort. [place] lifts or holds trunk or limbs and provides more than half the effort. 1-Ijsxtgypj-haptwg does ALL the effort. Patient does none of the effort to complete the activity. Or, the assistance of 2 or more helpers is required for the patient to complete the activity. If activity was not attempted, code reason: 7-Patient Refused. 9-Not Applicable-not attempted and the patient did not perform the activity before the current illness, exacerbation or injury. 10-Not Attempted due to Environmental Limitations-(lack of equipment, weather restraints, etc.). 88-Not Attempted due to Medical Conditions or Safety Concerns. ADL PLOF Comments Pt indicates requiring assistance with ADLs and mobility at PLOF. She is able to use a walker to ambulate short distances with assistance, she also uses a manual w/c but also requires assistance with w/c. Pt requires min A with UB dressing, max A with LB dressing, assistance wtih bathing. Pt has a tub/shower with a SC. Self Care: Needed Some Help Functional Cognition: Independent DME/Equipment: Bath Chair, Tub/Shower OT Current Status Subjective Pt in bed, present. Pt agreeable to OT evaluation. Pt often raised her voice towards her , telling him to be quite in order for pt to talk with OT, as her kept interrupting and answering questions for pt. Mental Status/Objective Patient Orientation: Person, Place, Situation Attachments: Alcantar Catheter, Oxygen Current Upper Extremity ROM BUE shoulder flexion to approx 90 degrees AROM against gravity Upper Extremity Coordination slightly decreased Upper Extremity Strength grossly 3/5 Edema: Swelling/increased size of BUEs, pt reports this is baseline. ADL-Treatment Eating (QC): 5 (per pt report) Lower Body Dressing (QC): 1 On/Off Footwear (QC): 1 Toileting Hygiene (QC): 1 Other Treatments Pt in bed, agreeable to OT evaluation. Pt provided information about PLOF and home set up and participated in UE screen. Pt states her main goal would be to increase her strength. In order to increase BUE strength, pt completed x10 reps each of the following, BUE exercises: shoulder flexion, elbow flexion/extension, front punch, finger flexion/extension. Post tx, pt in bed, PT present and all needs met Education OT Patient Education: Correct positioning, Energy conservation, Modified ADL techniques, Progress toward Goal/Update tx plan, Purpose of tx/functional activities, Rehab process Teaching Recipient: Patient Teaching Methods: Discussion Response to Teaching: Verbalize Understanding OT Long-Term Goals Long-Term Goals Time Frame: Sep 30, 2021 Eating (QC): 5 Oral Hygiene (QC): 5 Upper Body Dressing (QC): 3 Additional Goals: 1-Demonstrate ADL Tasks, 2-Verbalize Understanding, 3- ImproveStrength/Tatiana 1=Demonstrate adherence to instructed precautions during ADL tasks. 2=Patient will verbalize/demonstrate understanding of assistive devices/modifications for ADL. 3=Patient will improve strength/tolerance for activity to enable patient to perform ADL's. OT Education/Plan Problem List/Assessment Assessment: Decreased Activ Tolerance, Decreased UE Strength, Impaired Funct Balance, Impaired I ADL's, Impaired Self-Care Skills Discharge Recommendations Plan/Recommendations: Continue POC Treatment Plan/Plan of Care Patient would benefit from OT for education, treatment and training to promote independence in ADL's, mobility, safety and/or upper extremity function for ADL's. Plan of Care: ADL Retraining, Functional Mobility, UE Funct Exercise/Act Treatment Duration: Sep 30, 2021 Frequency: 3 times per week (3-5 times per week) Estimated Hrs Per Day: .25 hour per day Agreement: Yes Rehab Potential: Fair Time/GCodes Start Time: 14:55 Stop Time: 15:10 Total Time Billed (hr/min): 15 Billed Treatment Time 1SARATH ADDISON OT Sep 19, 2021 15:51
[2021-09-19] MEDS: PRAMIPEXOLE 0.5 MG TAB (MIRAPEX) PO SCH (21:45)
[2021-09-19] MEDS: cefTRIAXone 1 GM IV (PRE-MIX) 50 ML IV SCH (21:45)
[2021-09-19] MEDS: DIVALPROEX EXT RELEASE 250 MG (DEPAKOTE ER) TAB PO SCH (21:53)
[2021-09-20] MEDS: morphine INJ 10 MG/ML 1ML (SYR OR VIAL) IVP PRN ×2 (02:17→07:12)
[2021-09-20] MEDS: RT-ALBUTEROL SULF 2.5 MG/3 ML PRE-MIX VIAL INH SCH ×4 (03:03→23:20)
[2021-09-20] MEDS: TORSEMIDE 20 MG (DEMADEX) TAB PO SCH ×2 (06:13→16:47)
[2021-09-20] MEDS: inSUlin ASPART (NovoLOG) 1 UNIT/0.01 ML (CHARGE PER UNIT) SC SCH ×4 (06:13→21:32)
[2021-09-20] MEDS: LEVOTHYROXINE 150 MCG (LEVOTHROID) TAB PO SCH (06:13)
[2021-09-20] MEDS: CATHETER FLUSH 10 ML SYR IVP SCH (06:13)
[2021-09-20 06:20] LABS: POTASSIUM 4.2 MMOL/L (3.6-5.0)
[2021-09-20 06:22] LABS: CALCIUM 8.8 MG/DL (8.5-10.1)
[2021-09-20 06:26] LABS: CREATININE SERUM 0.86 MG/DL (0.60-1.30)
[2021-09-20 06:28] LABS: MAGNESIUM 1.7 MG/DL (1.6-2.4)
[2021-09-20] MEDS: POTASSIUM CL 10MEQ/50ML IVPB 50 ML IV SCH (06:35)
[2021-09-20] MEDS: MAGNESIUM 1 GM/100 ML IVPB 100 ML IV SCH (06:36)
[2021-09-20] MEDS: KCL 20 MEQ TAB (K-DUR) PO SCH (06:36)
[2021-09-20 08:00] VITALS: BP 147/77
--- NOTE | 2021-09-20 09:29 | Progress Note - Hospitalist ---
Subjective HPI/CC On Admission Date Seen by Provider: Sep 20, 2021 Time Seen by Provider: 09:26 Subjective/Events-last exam Pt laying in bed and complaints of a headache. She thinks it is because her oxygen is too high as that happens at home. is at bedside and states her oxygen is normally at 3lpm. Focused Exam Lactate Level 09/17/21 22:26: Lactic Acid Level 0.77 Objective Exam Vital Signs Vital Signs Date Time Temp Pulse Resp B/P (MAP) Pulse Ox O2 Delivery O2 Flow Rate FiO2 09/20/21 08:41 96 High Flow N/C 7.00 09/20/21 07:17 36.6 88 18 147/71 09/19/21 00:00 40 Capillary Refill : Less Than 3 Seconds General Appearance: No Apparent Distress, Chronically ill, Obese Respiratory: Decreased Breath Sounds (in bases, limited by habitus- apices clear) Cardiovascular: Regular Rate, Rhythm, No Murmur Gastrointestinal: Normal Bowel Sounds, Non Tender, Soft Extremity: Pedal Edema, Swelling Neurologic/Psychiatric: Alert, Oriented x3 Results/Procedures Lab Laboratory Tests 09/20/21 05:40 Patient resulted labs reviewed. Assessment/Plan Assessment and Plan Assess & Plan/Chief Complaint Acute on chronic respiratory failure with hypoxia and hypercapnia Obesity hypoventilation syndrome Obstructive sleep apnea Super super obesity CHF Continue BiPAP QHS Chest imaging with mild/moderate edema and cardiomegaly PT/OT Pulm/TeleICU consulted, appreciate recs MAT Protocol Wean oxygen to keep sats >90 Hopefully home tomorrow if she continues to improve UTI Rocephin Culture with e coli sensitive to Rocephin HTN IDDM Hypothyroidism Continue home meds SSI DVT prophylaxis: Lovenox Critical Care Critically Ill Patient EBONIE MCCLENDON MD Sep 20, 2021 09:29
[2021-09-20] MEDS: meTOprolol TARTRATE 50 MG (LOPRESSOR) TAB PO SCH ×2 (09:58→21:25)
[2021-09-20] MEDS: BACLOFEN 10 MG (LIORESAL) TAB PO SCH ×3 (09:59→21:25)
[2021-09-20] MEDS: PANTOPRAZOLE 40 MG (PROTONIX) TAB PO SCH (09:59)
[2021-09-20] MEDS: LOSARTAN 100 MG (COZAAR) TABLET PO SCH (09:59)
[2021-09-20] MEDS: SPIRONOLACTONE 100 MG (ALDACTONE) TABLET PO SCH (09:59)
[2021-09-20] MEDS: DIVALPROEX EXT RELEASE 250 MG (DEPAKOTE ER) TAB PO SCH ×2 (09:59→21:25)
[2021-09-20] MEDS: PREGABALIN 100 MG (LYRICA) CAPSULE PO SCH ×2 (09:59→21:25)
[2021-09-20] MEDS: MICONAZOLE 2% POWDER (DESENEX AF) 90 GM TOP SCH ×2 (10:00→21:27)
[2021-09-20] MEDS: ENOXAPARIN 60 MG/0.6 ML (LOVENOX) SYR SC SCH ×2 (10:01→21:25)
[2021-09-20] MEDS: ACETAMINOPHEN 500 MG TAB (TYLENOL) PO PRN (10:03)
--- NOTE | 2021-09-20 10:57 | Occupational Ther Daily Note ---
OT Current Status-Daily Note Subjective Pt alert, lying in bed. Pt agrees to therapy. No c/o pain at this time. Mental Status/Objective Patient Orientation: Person, Place, Time, Situation Attachments: Alcantar Catheter, IV, Oxygen (HiFlow 7L) ADL-Treatment Therapy Code Descriptions/Definitions Functional [place] Measure: 0=Not Assessed/NA 4=Minimal Assistance 1=Total Assistance 5=Supervision or Setup 2=Maximal Assistance 6=Modified [place] 3=Moderate Assistance 7=Complete IndependenceSCALE: Activities may be completed with or without assistive devices. 9-Xfnsjhyzff-ygziljr completes the activity by him/herself with no assistance from a helper. 5-Set-up or Clean-up Assistance-helper sets up or cleans up; patient completes activity. [place] assists only prior to or following the activity. 4-Supervision or Touching Assistance-helper provides verbal cues and/or touching/steadying and/or contact guard assistance as patient completes activity. Assistance may be provided throughout the activity or intermittently. 3-Partial/Moderate Assistance-helper does LESS THAN HALF the effort. [place] lifts, holds or supports trunk or limbs, but provides less than half the effort. 2-Substantial/Maximal Assistance-helper does MORE THAN HALF the effort. [place] lifts or holds trunk or limbs and provides more than half the effort. 7-Nftluqtuh-irlmzl does ALL the effort. Patient does none of the effort to complete the activity. Or, the assistance of 2 or more helpers is required for the patient to complete the activity. If activity was not attempted, code reason: 7-Patient Refused. 9-Not Applicable-not attempted and the patient did not perform the activity before the current illness, exacerbation or injury. 10-Not Attempted due to Environmental Limitations-(lack of equipment, weather restraints, etc.). 88-Not Attempted due to Medical Conditions or Safety Concerns. Other Treatment Pt given HEP for medium resistance theraband UE exercises and medium/heavy therapy sponge. Skilled instruction for correct technique given. Pt requires verbal and gestural cues to complete each exercise with correct technique. Pt only able to tolerate 2 sets 5 reps for 6 exercises in all planes. Educated pt on PLB during exercising instead of holding breath. Pt instructed on completing exercises 2-3x's per day. After therapy, pt lying in bed with call light/phone in reach. All needs met in room. Education OT Patient Education: Exercise program Teaching Recipient: Patient Teaching Methods: Demonstration, Handout, Discussion Response to Teaching: Verbalize Understanding, Return Demonstration, Reinforcement Needed OT Mcc Goals Mcc Goals Time Frame: Sep 30, 2021 Eating (QC): 5 Oral Hygiene (QC): 5 Upper Body Dressing (QC): 3 Additional Goals: 1-Demonstrate ADL Tasks, 2-Verbalize Understanding, 3- ImproveStrength/Tatiana 1=Demonstrate adherence to instructed precautions during ADL tasks. 2=Patient will verbalize/demonstrate understanding of assistive devices/ modifications for ADL. 3=Patient will improve strength/tolerance for activity to enable patient to perform ADL's. OT Education/Plan Problem List/Assessment Assessment: Decreased Activ Tolerance, Decreased UE Strength Discharge Recommendations Plan/Recommendations: Continue POC Treatment Plan/Plan of Care Patient would benefit from OT for education, treatment and training to promote independence in ADL's, mobility, safety and/or upper extremity function for ADL's. Plan of Care: ADL Retraining, Functional Mobility, UE Funct Exercise/Act Treatment Duration: Sep 30, 2021 Frequency: 3 times per week (3-5 times per week) Estimated Hrs Per Day: .25 hour per day Agreement: Yes Rehab Potential: Fair Time/GCodes Start Time: 10:35 Stop Time: 10:50 Total Time Billed (hr/min): 15 Billed Treatment Time 1 visit-EX 1 (15 min) BRITT BRENNER Sep 20, 2021 10:57
[2021-09-20 12:00] VITALS: BP 106/66
--- NOTE | 2021-09-20 12:14 | Physical Therapy Daily Note ---
PT Daily Note-Current Subjective Patient is very agreeable to participate with PT. Mental Status Patient Orientation: Normal For Age Attachments: Oxygen, IV Transfers SCALE: Activities may be completed with or without assistive devices. 9-Zosswonxny-bonxexd completes the activity by him/herself with no assistance from a helper. 5-Set-up or Clean-up Assistance-helper sets up or cleans up; patient completes activity. [place] assists only prior to or following the activity. 4-Supervision or Touching Assistance-helper provides verbal cues and/or touching/steadying and/or contact guard assistance as patient completes activity. Assistance may be provided throughout the activity or intermittently. 3-Partial/Moderate Assistance-helper does LESS THAN HALF the effort. [place] lifts, holds or supports trunk or limbs, but provides less than half the effort. 2-Substantial/Maximal Assistance-helper does MORE THAN HALF the effort. [place] lifts or holds trunk or limbs and provides more than half the effort. 9-Venptldev-ubrcpu does ALL the effort. Patient does none of the effort to complete the activity. Or, the assistance of 2 or more helpers is required for the patient to complete the activity. If activity was not attempted, code reason: 7-Patient Refused. 9-Not Applicable-not attempted and the patient did not perform the activity before the current illness, exacerbation or injury. 10-Not Attempted due to Environmental Limitations-(lack of equipment, weather restraints, etc.). 88-Not Attempted due to Medical Conditions or Safety Concerns. Lying to Sitting/Side of Bed(Q: 3 Sit to Stand (QC): 4 sit to stand to FWW x 3 sets on platform due to bed height, CGA with patient transferring to shower chair for nursing to bathe Assessment Patient improving with treatment plan. Patient performs sit to stand at PLOF at this time. PT Detention Goals Tanyard Worker Goals PT Detention Goals Time Frame: Oct 01, 2021 Roll Left & Right (QC): 4 Sit to Lying (QC): 4 Lying-Sitting on Side/Bed(QC): 4 Sit to Stand (QC): 4 Chair/Cyi-lh-Fenqu Xfer(QC): 4 PT Plan Treatment/Plan Treatment Plan: Continue Plan of Care Treatment Plan: Bed Mobility, Education, Functional Activity Tatiana, Functional Strength, Safety, Therapeutic Exercise, Transfers Treatment Duration: Oct 01, 2021 Frequency: 6 times per week Estimated Hrs Per Day: .25 hour per day Patient and/or Family Agrees t: Yes Time/GCodes Time In: 1115 Time Out: 1131 Total Billed Treatment Time: 16 Total Billed Treatment 1 visit FA 16 min WARREN MUNIZ PT Sep 20, 2021 12:14
[2021-09-20] MEDS: HYDROcodone/APAP 5 MG/325 MG (LORTAB) TAB PO PRN ×2 (13:13→18:50)
[2021-09-20 15:29] VITALS: BP 102/69
--- NOTE | 2021-09-20 16:08 | Pulmonary Progress Note ---
Subjective Date Seen by a Provider: Sep 20, 2021 Time Seen by a Provider: 15:59 Subjective/Events-last exam (Tele-pulmonology Physician , Progress Note ) Available chart/ vitals / labs / Images reviewed Video assessment done using Video camera, rest of exam as per RN Discussed with RN , patient and at bedside Patient reported mild cough at night , feeling better was ambulating to shower with help on 5 l [place] Hospital course: (09/17) 51F admitted for CHF, multiple falls, chronic pain, super morbid obesity (>450lbs), hypoventilation syndrome, UTI. 09/19- transferred to tele - floor A/P Acute on chronic resp fail;ure = [facility] - as per - PSG done 3 y ago did not confirmed MARIA ISABEL - she was placed on O2 at night discussed win mandyt with patient and - patient is willing to use NIPPV every night at home if it will help her for long run PATIENT MIGHT MEET MEDICARE CRITERIA HYPOVENTILATION SYNDROME IF 1. ABG AWAKE ALERT ON HOME LEVEL O2 WITH PAO2> 45 MMHG 2. IF SPIROMETRY SHOES FEV1/FVC > 70% AND FEV1>50 % PREDICTED 3 PCO2 IMMEDIATELY UPON AWAKENING IS > 7 MMHG HIGHER COMPARING TO AWAKE ABG MENTIONED EARLIER WILL ORDER 2 ABG AND SPIROMETRY AND FOLLOW AM ECHO 2019 - EF 50% , RVSP 25 - cont diuresis VTE Prophylaxis: 60 q 12 Stress Ulcer Prophylaxis: po Plans in collaboration with bedside consultants and IM MDs. Discussed with RN to reach out if any questions or concerns . Sepsis Event Evaluation Height, Weight, BMI Height: 5'0.00" Weight: 389lbs. 0.4oz. [id number]; 82.23 BMI Method:Stated Focused Exam Lactate Level 09/17/21 22:26: Lactic Acid Level 0.77 Exam Exam Patient acknowledged, consented, and participated in this virtual visit which was conducted using real time audio/video Vital Signs Date Time Temp Pulse Resp B/P (MAP) Pulse Ox O2 Delivery O2 Flow Rate FiO2 09/20/21 15:29 36.6 68 18 102/69 (80) 96 High Flow N/C 5.00 09/20/21 12:00 36.4 71 20 106/66 (79) 93 High Flow N/C 5.00 09/20/21 09:59 97 High Flow N/C 5.00 09/20/21 09:50 High Flow N/C 8.00 09/20/21 08:41 96 High Flow N/C 7.00 09/20/21 08:00 36.4 68 18 147/77 (100) 96 Room Air 09/20/21 07:17 36.6 88 18 147/71 97 High Flow N/C 8.00 09/20/21 07:00 88 09/20/21 04:00 35.6 75 20 137/63 97 High Flow N/C 8.00 09/20/21 03:03 65 25 94 40.00 09/20/21 01:51 67 09/20/21 00:45 36.5 83 22 130/61 95 High Flow N/C 8.00 09/20/21 00:12 67 23 94 40.00 09/19/21 21:27 95 High Flow N/C 8.00 09/19/21 21:00 High Flow N/C 8.00 09/19/21 19:31 36.4 70 20 118/59 97 High Flow N/C 8.00 09/19/21 19:00 71 09/19/21 16:29 36.4 74 18 138/71 100 High Flow N/C 8.00 09/19/21 16:20 Nasal Cannula 8.00 I & O 09/20/21 07:00 Intake Total 1200 ml Output Total 1300 ml Balance -100 ml Height & Weight Height: 5'0.00" Weight: 389lbs. 0.4oz. [id number]; 82.23 BMI Method:Stated General Appearance: No Apparent Distress, Chronically ill, Obese HEENT: PERRL/EOMI Neck: Normal Inspection, Non Tender Respiratory: Decreased Breath Sounds (in bases, limited by habitus- apices clear) Cardiovascular: Regular Rate, Rhythm, No Murmur Capillary Refill: Less Than 3 Seconds Extremity: Pedal Edema, Swelling Neurologic/Psychiatric: Alert, Oriented x3 Skin: Normal Color, Warm/Dry, Rash (EXTENSIVE ANIKA INTERTRIGO TO INGUINAL AREA/ABDOMINAL FOLDS/UNDER BREASTS), Tattoos/Piercings Results Lab Laboratory Tests 09/19/21 04:03 09/20/21 05:40 Assessment/Plan Assessment/Plan . ARMEN BLUM MD Sep 20, 2021 16:08
[2021-09-20 16:46] LABS: ABG OXYGEN SATURATION 91 % (94-100); ABG PH 7.35 (7.37-7.43); ABG PO2 64 MMHG (79-93)
[2021-09-20 16:52] LABS: ABG PCO2 75 MMHG (35-45); ABG TCO2 42.8 MMOL/L (21.0-31.0)
[2021-09-20 16:53] LABS: ALLENS TEST POSITIVE; INSPIRED O2 4 L; PATIENT TEMP 36; VENTILATOR NO
[2021-09-20 20:30] VITALS: BP 161/83
[2021-09-20] MEDS: CEPHALEXIN 250 MG (KEFLEX) CAP PO SCH (21:25)
[2021-09-20] MEDS: PRAMIPEXOLE 0.5 MG TAB (MIRAPEX) PO SCH (21:25)
[2021-09-21] VITALS (7 sets, daily range): BP systolic 112–156; BP diastolic 31–88
[2021-09-21] MEDS: HYDROcodone/APAP 5 MG/325 MG (LORTAB) TAB PO PRN ×3 (00:50→17:08)
[2021-09-21] MEDS: RT-ALBUTEROL SULF 2.5 MG/3 ML PRE-MIX VIAL INH SCH ×3 (02:52→20:48)
[2021-09-21] MEDS: LEVOTHYROXINE 150 MCG (LEVOTHROID) TAB PO SCH (05:20)
[2021-09-21] MEDS: TORSEMIDE 20 MG (DEMADEX) TAB PO SCH ×2 (05:23→17:08)
[2021-09-21] MEDS: inSUlin ASPART (NovoLOG) 1 UNIT/0.01 ML (CHARGE PER UNIT) SC SCH ×4 (05:23→20:44)
[2021-09-21 06:08] LABS: POTASSIUM 4.6 MMOL/L (3.6-5.0)
[2021-09-21 06:13] LABS: CREATININE SERUM 0.83 MG/DL (0.60-1.30)
[2021-09-21 06:15] LABS: MAGNESIUM 1.8 MG/DL (1.6-2.4)
[2021-09-21] MEDS: KCL 20 MEQ TAB (K-DUR) PO SCH (06:18)
[2021-09-21] MEDS: POTASSIUM CL 10MEQ/50ML IVPB 50 ML IV SCH (06:18)
[2021-09-21] MEDS: MAGNESIUM 1 GM/100 ML IVPB 100 ML IV SCH (06:18)
[2021-09-21 07:51] LABS: ABG BASE EXCESS 17.2 MMOL/L (-2.5-2.5); ABG OXYGEN SATURATION 97 % (94-100); ABG PO2 101 MMHG (79-93)
[2021-09-21 07:56] LABS: ABG PCO2 92 MMHG (35-45); ABG TCO2 47.4 MMOL/L (21.0-31.0)
[2021-09-21 07:57] LABS: ALLENS TEST YES-POS; INSPIRED O2 40%; PATIENT TEMP 36; VENTILATOR NO
[2021-09-21] MEDS: BACLOFEN 10 MG (LIORESAL) TAB PO SCH ×3 (08:38→20:08)
[2021-09-21] MEDS: SPIRONOLACTONE 100 MG (ALDACTONE) TABLET PO SCH (08:38)
[2021-09-21] MEDS: PANTOPRAZOLE 40 MG (PROTONIX) TAB PO SCH (08:38)
[2021-09-21] MEDS: PREGABALIN 100 MG (LYRICA) CAPSULE PO SCH ×2 (08:38→20:08)
[2021-09-21] MEDS: ENOXAPARIN 60 MG/0.6 ML (LOVENOX) SYR SC SCH ×2 (08:39→20:09)
[2021-09-21] MEDS: LOSARTAN 100 MG (COZAAR) TABLET PO SCH (08:39)
[2021-09-21] MEDS: meTOprolol TARTRATE 50 MG (LOPRESSOR) TAB PO SCH ×2 (08:39→20:09)
[2021-09-21] MEDS: DIVALPROEX EXT RELEASE 250 MG (DEPAKOTE ER) TAB PO SCH ×2 (08:42→20:08)
[2021-09-21] MEDS: ACETAMINOPHEN 500 MG TAB (TYLENOL) PO PRN (08:42)
[2021-09-21] MEDS: CEPHALEXIN 250 MG (KEFLEX) CAP PO SCH ×2 (08:42→20:09)
--- NOTE | 2021-09-21 08:44 | Pulmonary Progress Note ---
Subjective Date Seen by a Provider: Sep 21, 2021 Time Seen by a Provider: 08:23 Subjective/Events-last exam (Tele-pulmonology Physician , Progress Note ) Available chart/ vitals / labs / Images reviewed Video assessment done using Video camera, rest of exam as per RN Discussed with RN , patient and at bedside Patient reported mild cough at night , feeling better was ambulating to shower with help on 5 l [place] Hospital course: (09/17) 51F admitted for CHF, multiple falls, chronic pain, super morbid obesity (>450lbs), hypoventilation syndrome, UTI. 09/19- transferred to tele - floor A/P Acute on chronic resp fail;ure = OHVS - as per - PSG done 3 y ago did not confirmed MARIA ISABEL - she was placed on O2 at night discussed win mandyt with patient and - patient is willing to use NIPPV every night at home if it will help her for long run PATIENT MIGHT MEET MEDICARE CRITERIA HYPOVENTILATION SYNDROME IF : 1. ABG AWAKE ALERT ON HOME LEVEL CO2 WITH PAO2> 45 MMHG- confirmed - abg AAO with Co2 75 2. IF SPIROMETRY SHOWS FEV1/FVC > 70% AND FEV1>50 % PREDICTED - will be done today 3 PCO2 IMMEDIATELY UPON AWAKENING IS > 7 MMHG HIGHER COMPARING TO AWAKE ABG MENTIONED EARLIER - please see results abg 09/21 with co2 raising to 92 PLAN - place patient on NIPPV and repeat abg at noon - patient is clearly needs NIPPV at home to use on everynight bases - if her spirometry resuls meet criteria - will need social media marketer to work with [employer] to gert bipap with dX OF HYPERVENTILATION SYNDROME - if spiromerty confirms airway obstruction (despite being on TCX now for 3 years with br-dilators ) and given abg above - she should be qualified for BIPAP with Dx of chronic airway failure/ copd WITHOUT NIPPV PATIENT WILL CONTINUE TO HAVE ELEVATED CO2 LEVELS WHICH WILL PUT HER AT RISK FOR REPEAT HOSPITALIZATION AND POSSIBLE FATAL OUTCOME ECHO 2018 - EF 50% , RVSP 25 - cont diuresis VTE Prophylaxis: 60 q 12 Stress Ulcer Prophylaxis: po Sepsis Event Evaluation Height, Weight, BMI Height: 5'0.00" Weight: 389lbs. 0.4oz. 176.266465ob; 82.23 BMI Method:Stated Exam Exam Patient acknowledged, consented, and participated in this virtual visit which was conducted using real time audio/video Vital Signs Date Time Temp Pulse Resp B/P (MAP) Pulse Ox O2 Delivery O2 Flow Rate FiO2 09/21/21 07:49 36.0 88 20 156/88 (110) 92 High Flow N/C 5.00 09/21/21 04:00 36.0 81 22 154/71 (98) 97 High Flow N/C 5.00 09/21/21 02:52 94 High Flow N/C 5.00 09/21/21 01:00 71 09/21/21 00:00 36.4 71 20 126/74 (91) 95 High Flow N/C 5.00 09/20/21 21:00 High Flow N/C 5.00 09/20/21 20:30 36.0 95 22 161/83 (109) 93 High Flow N/C 5.00 09/20/21 19:00 92 09/20/21 16:37 91 High Flow N/C 4.00 09/20/21 15:29 36.6 68 18 102/69 (80) 96 High Flow N/C 5.00 09/20/21 13:00 73 09/20/21 12:00 36.4 71 20 106/66 (79) 93 High Flow N/C 5.00 09/20/21 09:59 97 High Flow N/C 5.00 09/20/21 09:50 High Flow N/C 8.00 09/20/21 08:41 96 High Flow N/C 7.00 I & O 09/21/21 07:00 Intake Total 1280 ml Output Total 3150 ml Balance -1870 ml Height & Weight Height: 5'0.00" Weight: 389lbs. 0.4oz. 176.976803yn; 82.23 BMI Method:Stated General Appearance: No Apparent Distress, Chronically ill, Obese HEENT: PERRL/EOMI Neck: Normal Inspection, Non Tender Respiratory: Decreased Breath Sounds (in bases, limited by habitus- apices clear) Cardiovascular: Regular Rate, Rhythm, No Murmur Capillary Refill: Less Than 3 Seconds Extremity: Pedal Edema, Swelling Neurologic/Psychiatric: Alert, Oriented x3 Skin: Normal Color, Warm/Dry, Rash (EXTENSIVE ANIKA INTERTRIGO TO INGUINAL AREA/ABDOMINAL FOLDS/UNDER BREASTS), Tattoos/Piercings Results Lab Laboratory Tests 09/20/21 05:40 09/21/21 05:33 Assessment/Plan Assessment/Plan . ARMEN BLUM MD Sep 21, 2021 08:44
[2021-09-21] MEDS: MICONAZOLE 2% POWDER (DESENEX AF) 90 GM TOP SCH ×2 (10:10→20:11)
--- NOTE | 2021-09-21 10:56 | Occupational Ther Daily Note ---
OT Current Status-Daily Note Subjective Pt has BiPap on in bed sleeping and groggy when woke. Pt does agree to therapy. Pt c/o pain in L lower leg, rates above 10/10 with any movement of leg. present in room. Mental Status/Objective Patient Orientation: Person, Place, Time, Situation ADL-Treatment Therapy Code Descriptions/Definitions Functional [place] Measure: 0=Not Assessed/NA 4=Minimal Assistance 1=Total Assistance 5=Supervision or Setup 2=Maximal Assistance 6=Modified [place] 3=Moderate Assistance 7=Complete IndependenceSCALE: Activities may be completed with or without assistive devices. 5-Sdsynvzoir-cgoalvo completes the activity by him/herself with no assistance from a helper. 5-Set-up or Clean-up Assistance-helper sets up or cleans up; patient completes activity. [place] assists only prior to or following the activity. 4-Supervision or Touching Assistance-helper provides verbal cues and/or touching/steadying and/or contact guard assistance as patient completes activity. Assistance may be provided throughout the activity or intermittently. 3-Partial/Moderate Assistance-helper does LESS THAN HALF the effort. [place] lifts, holds or supports trunk or limbs, but provides less than half the effort. 2-Substantial/Maximal Assistance-helper does MORE THAN HALF the effort. [place] lifts or holds trunk or limbs and provides more than half the effort. 7-Apulsqxab-pfvhdt does ALL the effort. Patient does none of the effort to complete the activity. Or, the assistance of 2 or more helpers is required for the patient to complete the activity. If activity was not attempted, code reason: 7-Patient Refused. 9-Not Applicable-not attempted and the patient did not perform the activity b efore the current illness, exacerbation or injury. 10-Not Attempted due to Environmental Limitations-(lack of equipment, weather restraints, etc.). 88-Not Attempted due to Medical Conditions or Safety Concerns. Other Treatment Mod A for supine to EOB then max A x2 for EOB to supine and to scoot up in bed. Pt is able to sit EOB by self with feet on elevated surface. Holding FWW stable, pt is able to sit to stand. Pt then scoots self up in bed while sitting on EOB. Pt does not c/o pain with standing, but when L LE is moved pt is screams in pain. Alerted nrsg to pain. After therapy, pt sitting in recliner with call light/phone in reach. in room. OT Skilled Nursing Goals Ground Crewman Aircraft Support Goals Time Frame: Sep 30, 2021 Eating (QC): 5 Oral Hygiene (QC): 5 Upper Body Dressing (QC): 3 Additional Goals: 1-Demonstrate ADL Tasks, 2-Verbalize Understanding, 3-Improve Strength/[place] 1=Demonstrate adherence to instructed precautions during ADL tasks. 2=Patient will verbalize/demonstrate understanding of assistive devices/modifications for ADL. 3=Patient will improve strength/tolerance for activity to enable patient to pe rform ADL's. OT Education/Plan Problem List/Assessment Assessment: Decreased Activ Tolerance, Decreased UE Strength, Impaired Bed Mobility, Impaired Self-Care Skills Discharge Recommendations Plan/Recommendations: Continue POC Treatment Plan/Plan of Care Patient would benefit from OT for education, treatment and training to promote independence in ADL's, mobility, safety and/or upper extremity function for ADL's. Plan of Care: ADL Retraining, Functional Mobility, UE Funct Exercise/Act Treatment Duration: Sep 30, 2021 Frequency: 3 times per week (3-5 times per week) Estimated Hrs Per Day: .25 hour per day Agreement: Yes Rehab Potential: Fair Time/GCodes Start Time: 10:12 Stop Time: 10:40 Total Time Billed (hr/min): 38 Billed Treatment Time 1 visit-FA 3 (38 min) BRITT BRENNER Sep 21, 2021 10:56
--- NOTE | 2021-09-21 11:07 | Progress Note - Hospitalist ---
Subjective HPI/CC On Admission Date Seen by Provider: Sep 21, 2021 Time Seen by Provider: 10:56 Subjective/Events-last exam Pt reports doing ok but has a headache. We discussed results of her ABG and need for BiPAP at home and plan for SW to assist with getting this arranged. Objective Exam Vital Signs Vital Signs Date Time Temp Pulse Resp B/P (MAP) Pulse Ox O2 Delivery O2 Flow Rate FiO2 09/21/21 10:35 64 24 97 40.00 09/21/21 09:00 High Flow N/C 09/21/21 07:49 36.0 156/88 (110) 09/19/21 00:00 40 Capillary Refill : Less Than 3 Seconds General Appearance: Chronically ill, Obese Respiratory: No Accessory Muscle Use, Decreased Breath Sounds Cardiovascular: Regular Rate, Rhythm, No Murmur Gastrointestinal: Normal Bowel Sounds, Soft Neurologic/Psychiatric: Alert, Oriented x3 Results/Procedures Lab Laboratory Tests 09/21/21 05:33 Patient resulted labs reviewed. Assessment/Plan Assessment and Plan Assess & Plan/Chief Complaint Acute on chronic respiratory failure with hypoxia and hypercapnia Obesity hypoventilation syndrome Obstructive sleep apnea Super super obesity CHF Continue BiPAP QHS Trialed off last night with an increase in CO2 of nearly 20, will repeat ABG this afternoon per pulm order after BiPAP in place Chest imaging with mild/moderate edema and cardiomegaly PT/OT Pulm/TeleICU consulted, appreciate recs MAT Protocol Wean oxygen to keep sats >90 Discussed with SW that patient would benefits from NIPPV at home to prevent hypercapnea due to hypoventilation to prevent respiratory failure, readmissions, and potentially fatal outcome UTI Rocephin Culture with e coli sensitive to Keflex, will continue one more day HTN IDDM Hypothyroidism Continue home meds SSI DVT prophylaxis: Lovenox Critical Care Critically Ill Patient EBONIE MCCLENDON MD Sep 21, 2021 11:06
--- NOTE | 2021-09-21 12:45 | Physical Therapy Daily Note ---
PT Daily Note-Current Subjective Pt resting in bed with BiPap on upon arrival. Pt eyes closed, easily awakened. Pt denied pain but pt points out that her ankle hurts especially "if you do this". Pt passively DF'd (L) ankle and pt screamed due to pain. Pt agrees to therapy at this time. Pt able to actively PF/Df ankles without co mplaint of pain. When asked to rate ankle pain at the end of the treatment session pt indicated 10(+)/10. Mental Status Patient Orientation: Person Attachments: Oxygen, Alcantar Catheter BiPap, Transfers SCALE: Activities may be completed with or without assistive devices. 2-Rehwinglbi-oromwlj completes the activity by him/herself with no assistance from a helper. 5-Set-up or Clean-up Assistance-helper sets up or cleans up; patient completes activity. [place] assists only prior to or following the activity. 4-Supervision or Touching Assistance-helper provides verbal cues and/or touching/steadying and/or contact guard assistance as patient completes activity. Assistance may be provided throughout the activity or intermittently. 3-Partial/Moderate Assistance-helper does LESS THAN HALF the effort. [place] lifts, holds or supports trunk or limbs, but provides less than half the effort. 2-Substantial/Maximal Assistance-helper does MORE THAN HALF the effort. [place] lifts or holds trunk or limbs and provides more than half the effort. 2-Efwnbfoqk-nuqoec does ALL the effort. Patient does none of the effort to complete the activity. Or, the assistance of 2 or more helpers is required for the patient to complete the activity. If activity was not attempted, code reason: 7-Patient Refused. 9-Not Applicable-not attempted and the patient did not perform the activity before the current illness, exacerbation or injury. 10-Not Attempted due to Environmental Limitations-(lack of equipment, weather restraints, etc.). 88-Not Attempted due to Medical Conditions or Safety Concerns. Mod A for supine to sit x 2 persons. Max A for sit to supine and repositioning/scooting up in bed x 2 persons. Exercises Supine Ex: Ankle pumps, Quad Set, Glut sets Supine Reps: 20 Treatments Pt sat EOB x 10' with feet resting on elevated platform. Pt used FWW to pa rtially stand and scoot bottom toward center of bed in order to prepare to transfer to supine. Pt demonstrated ability to partially stand and scoot x 2- 3x. Pt transferred to supine position. Pt began to scream and cry in pain due to (L) LE pain from knee down per pt. Attempted to float lower leg on pillow and reposition but pt indicated it was worse pain so pillow was removed. Nursing notified of pt complaint per LINK. Assessment Current Status: Poor Progress Pt michaela fair. Pt limited by (L) ankle pain. Note pt able to actively DF/PF without indication of pain. Pt also able to partially stand with support of FWW and push bottom to center of bed without indication of ankle pain. Pt resting in supine with call light and all needs met. PT Jail Goals Tenterer Goals PT Tenterer Goals Time Frame: Oct 01, 2021 Roll Left & Right (QC): 4 Sit to Lying (QC): 4 Lying-Sitting on Side/Bed(QC): 4 Sit to Stand (QC): 4 Chair/Onz-eu-Ykfwz Xfer(QC): 4 PT Plan Treatment/Plan Treatment Plan: Continue Plan of Care Treatment Plan: Bed Mobility, Education, Functional Activity Tatiana, Functional Strength, Safety, Therapeutic Exercise, Transfers Treatment Duration: Oct 01, 2021 Frequency: 6 times per week Estimated Hrs Per Day: .25 hour per day Patient and/or Family Agrees t: Yes Time/GCodes Time In: 1015 Time Out: 1040 Total Billed Treatment Time: 25 Total Billed Treatment 1, Ther ex 10', FA 15' CONCEPCION NUNN CPTA Sep 21, 2021 12:45
[2021-09-21 15:26] LABS: ABG BASE EXCESS 18.3 MMOL/L (-2.5-2.5); ABG OXYGEN SATURATION 95 % (94-100); ABG PH 7.36 (7.37-7.43); ABG PO2 91 MMHG (79-93)
[2021-09-21 15:28] LABS: ABG PCO2 82 MMHG (35-45)
[2021-09-21 15:29] LABS: ABG TCO2 47.6 MMOL/L (21.0-31.0); ALLENS TEST YES-POS; INSPIRED O2 5L; PATIENT TEMP 36; VENTILATOR NO
[2021-09-21] MEDS: PRAMIPEXOLE 0.5 MG TAB (MIRAPEX) PO SCH (20:08)
[2021-09-22] VITALS: BP 120/57
[2021-09-22] MEDS: RT-ALBUTEROL SULF 2.5 MG/3 ML PRE-MIX VIAL INH SCH ×2 (02:29→09:20)
[2021-09-22 04:00] VITALS: BP 138/68
[2021-09-22] MEDS: inSUlin ASPART (NovoLOG) 1 UNIT/0.01 ML (CHARGE PER UNIT) SC SCH ×2 (05:19→11:07)
[2021-09-22] MEDS: TORSEMIDE 20 MG (DEMADEX) TAB PO SCH (05:38)
[2021-09-22] MEDS: LEVOTHYROXINE 150 MCG (LEVOTHROID) TAB PO SCH (05:38)
[2021-09-22 07:56] VITALS: BP 186/81
[2021-09-22 08:04] LABS: ABG OXYGEN SATURATION 95 % (94-100); ABG PH 7.38 (7.37-7.43); ABG PO2 83 MMHG (79-93)
[2021-09-22 08:13] LABS: ABG PCO2 82 MMHG (35-45); ABG TCO2 51.3 MMOL/L (21.0-31.0); ALLENS TEST YES-POS
[2021-09-22 08:14] LABS: INSPIRED O2 40%; PATIENT TEMP 36.2; VENTILATOR YES
[2021-09-22] MEDS ORDERED: HYDROcodone/APAP 5 MG/325 MG (LORTAB) TAB PO PRN (08:45)
[2021-09-22] MEDS: DIVALPROEX EXT RELEASE 250 MG (DEPAKOTE ER) TAB PO SCH (08:48)
[2021-09-22] MEDS: PREGABALIN 100 MG (LYRICA) CAPSULE PO SCH (08:48)
[2021-09-22] MEDS: BACLOFEN 10 MG (LIORESAL) TAB PO SCH (08:48)
[2021-09-22] MEDS: LOSARTAN 100 MG (COZAAR) TABLET PO SCH (08:48)
[2021-09-22] MEDS: PANTOPRAZOLE 40 MG (PROTONIX) TAB PO SCH (08:49)
[2021-09-22] MEDS: SPIRONOLACTONE 100 MG (ALDACTONE) TABLET PO SCH (08:49)
[2021-09-22] MEDS: meTOprolol TARTRATE 50 MG (LOPRESSOR) TAB PO SCH (08:49)
[2021-09-22] MEDS: CEPHALEXIN 250 MG (KEFLEX) CAP PO SCH (08:49)
[2021-09-22] MEDS: MICONAZOLE 2% POWDER (DESENEX AF) 90 GM TOP SCH (08:50)
[2021-09-22] MEDS: ENOXAPARIN 60 MG/0.6 ML (LOVENOX) SYR SC SCH (08:50)
--- NOTE | 2021-09-22 10:30 | D/C HH Face to Face Order ---
D/C Face to Face Orders Instructions for Patient [facility], Patient Instructions/FollowUp: Please continue to take your medications as written. Please follow up with your primary care doctor to follow up this hospital stay. Physician to follow Patient: Dr Mc Luke Discharge Diet for Home: ADA Diet Patient Data-Allergies,Ht & Wt Patient Allergies: Coded Allergies: [place] And Derivatives (Verified Allergy, Intermediate, 12/19/20) MAKES TONGUE BREAK OUT duloxetine (Verified Allergy, Unknown, 03/17/20) tramadol (Verified Allergy, Unknown, 03/17/20) butorphanol (Unverified Adverse Reaction, Severe, 08/04/18) HALLUCINATIONS Penicillins (Unverified Adverse Reaction, Unknown, NAUSEA, 08/04/18) Height (Feet): 5 Height (Inches): 0.00 Weight (Pounds): 389 Weight (Ounces): 0.4 Home Health Need/Face to Face Date of Face to Face: Sep 22, 2021 Clinical Findings: Generalized weakness and fatigue, Instability, Shortness of breath I have seen Pt ajsx-vs-hkvf: Yes Discharged To: Home Diagnosis/Conditions: Hypoventilation syndrome Patient is Homebound due to: Muscle weakness, Shortness of breath/distress Homebound Status Due to the above stated illness, injury or surgical procedure (medical condition or diagnosis) and associated clinical findings, the patient is homebound because of his/her inability to leave home except with aid of a supportive device and/or person AND leaving the home requires a considerable and taxing effort or is medically contraindicated. Pt req the following assistanc: Aid of another person, [place] Home Health Nursing Orders Home Health Services Order: Nursing Services, Social Worker Masters-Evaluate & Treat, Physical Therapy-Evaluate & Treat Home Health Infusion Therapy Line Start Date: Sep 17, 2021 Therapy Orders Therapy Orders: OT (must have SN or PT order), Physical Therapy Therapy Specific Orders: Eval assistive deivces, Teach enviro modifications/safety, Gait training, Increase strength/endurance, Restore ROM Certify Stmt I certify that this patient is under my care and that I, a nurse practitioner or a physician; a computer lab assistant working with me, had a face to face encounter that - meets the physician face to face encounter requirements with this patient as dated. EBONIE MCCLENDON MD Sep 22, 2021 09:53
[2021-09-22] MEDS ORDERED: TORS20TA3 PO (10:41)
[2021-09-22] MEDS ORDERED: SPIR100T4 PO (10:41)
--- NOTE | 2021-09-22 10:46 | Occupational Ther Daily Note ---
OT Current Status-Daily Note Subjective Pt alert, lying in bed. Pt states"Oh not now, my legs hurt bad and I am numb in my L hand". Pt stated that she is going home today. Mental Status/Objective Patient Orientation: Person, Place, Time, Situation Attachments: IV, Oxygen (hiFlow 5L) ADL-Treatment Therapy Code Descriptions/Definitions Functional [place] Measure: 0=Not Assessed/NA 4=Minimal Assistance 1=Total Assistance 5=Supervision or Setup 2=Maximal Assistance 6=Modified [place] 3=Moderate Assistance 7=Complete IndependenceSCALE: Activities may be completed with or without assistive devices. 9-Jnmteaokef-yorbuot completes the activity by him/herself with no assistance from a helper. 5-Set-up or Clean-up Assistance-helper sets up or cleans up; patient completes activity. [place] assists only prior to or following the activity. 4-Supervision or Touching Assistance-helper provides verbal cues and/or touching/steadying and/or contact guard assistance as patient completes activity. Assistance may be provided throughout the activity or intermittently. 3-Partial/Moderate Assistance-helper does LESS THAN HALF the effort. [place] lifts, holds or supports trunk or limbs, but provides less than half the effort. 2-Substantial/Maximal Assistance-helper does MORE THAN HALF the effort. [place] lifts or holds trunk or limbs and provides more than half the effort. 3-Hhcafmwmc-qpnnus does ALL the effort. Patient does none of the effort to complete the activity. Or, the assistance of 2 or more helpers is required for the patient to complete the activity. If activity was not attempted, code reason: 7-Patient Refused. 9-Not Applicable-not attempted and the patient did not perform the activity before the current illness, exacerbation or injury. 10-Not Attempted due to Environmental Limitations-(lack of equipment, weather restraints, etc.). 88-Not Attempted due to Medical Conditions or Safety Concerns. Other Treatment Pt declines all OOB or UE exercises due to pain in legs and numbness in L hand. LINK positioned pt for comfort on L UE and gave nerve glide stretches to alleviate numbness. Pt stated that it was helping a little. Pt declined any further OT tasks. Call light/phone in reach. All needs met in room. OT Income Tax Preparer Goals Long-Term Goals Time Frame: Sep 30, 2021 Eating (QC): 5 Oral Hygiene (QC): 5 Upper Body Dressing (QC): 3 Additional Goals: 1-Demonstrate ADL Tasks, 2-Verbalize Understanding, 3-Impro veStrength/Tatiana 1=Demonstrate adherence to instructed precautions during ADL tasks. 2=Patient will verbalize/demonstrate understanding of assistive devices/modifications for ADL. 3=Patient will improve strength/tolerance for activity to enable patient to perform ADL's. OT Education/Plan Problem List/Assessment Assessment: Decreased Activ Tolerance, Decreased UE Strength, Impaired Self- Care Skills, Restricted Funct UE ROM Discharge Recommendations Plan/Recommendations: Continue POC Treatment Plan/Plan of Care Patient would benefit from OT for education, treatment and training to promote independence in ADL's, mobility, safety and/or upper extremity function for ADL's. Plan of Care: ADL Retraining, Functional Mobility, UE Funct Exercise/Act Treatment Duration: Sep 30, 2021 Frequency: 3 times per week (3-5 times per week) Estimated Hrs Per Day: .25 hour per day Agreement: Yes Rehab Potential: Fair Time/GCodes Start Time: 10:06 Stop Time: 10:14 Total Time Billed (hr/min): 8 Billed Treatment Time 1 visit-EX 1 (8 min) BRITT BRENNER Sep 22, 2021 10:46
[2021-09-22 11:04] VITALS: BP 116/55
--- NOTE | 2021-09-22 11:10 | Pulmonary Progress Note ---
Subjective Date Seen by a Provider: Sep 22, 2021 Time Seen by a Provider: 11:01 Subjective/Events-last exam Acute on chronic resp fail;ure = OHVS = spirometry at bedside attempted , not diagnostic abg this anm revired , chronic CO2 retention , no acute component due to using NIPPV last night SW notes indicate what Trilogy is arranged and approved , as per Rn , patient and want d/c today , acceptojng risks of trilogy might not be delivered today discussed win length with patient and earlier - patient is willing to use NIPPV every night at home if it will help her for long run thank you for opportunity to participate in this challenging case please call if any questions Sepsis Event Evaluation Height, Weight, BMI Height: 5'0.00" Weight: 389lbs. 0.4oz. 176.314543an; 82.23 BMI Method:Stated Exam Exam Patient acknowledged, consented, and participated in this virtual visit which was conducted using real time audio/video Vital Signs Date Time Temp Pulse Resp B/P (MAP) Pulse Ox O2 Delivery O2 Flow Rate FiO2 09/22/21 09:20 96 High Flow N/C 5.00 09/22/21 08:44 High Flow N/C 5.00 09/22/21 07:56 36.5 87 20 186/81 (116) 98 High Flow N/C 5.00 09/22/21 06:29 68 09/22/21 04:00 36.2 67 22 138/68 (91) 96 NIV Bilevel 09/22/21 02:29 65 21 97 40.00 09/22/21 01:00 66 09/22/21 00:00 36.0 69 22 120/57 (78) 94 NIV Bilevel 09/21/21 21:00 High Flow N/C 5.00 09/21/21 20:50 67 95 40 09/21/21 20:48 74 25 95 40.00 09/21/21 19:26 36.1 76 18 112/63 (79) 95 High Flow N/C 4.50 09/21/21 19:00 81 09/21/21 16:19 36.2 76 20 139/65 (89) 96 High Flow N/C 4.50 09/21/21 14:30 65 20 130/61 (84) 96 Nasal Cannula 5.00 09/21/21 13:00 62 09/21/21 11:21 36.4 64 18 138/72 (94) 94 High Flow N/C 5.00 I & O 09/22/21 07:00 Intake Total 1180 ml Output Total 1050 ml Balance 130 ml Height & Weight Height: 5'0.00" Weight: 389lbs. 0.4oz. 176.696941mq; 82.23 BMI Method:Stated General Appearance: Chronically ill, Obese HEENT: PERRL/EOMI Neck: Normal Inspection, Non Tender Respiratory: No Accessory Muscle Use, Decreased Breath Sounds Cardiovascular: Regular Rate, Rhythm, No Murmur Capillary Refill: Less Than 3 Seconds Extremity: Pedal Edema, Swelling Neurologic/Psychiatric: Alert, Oriented x3 Skin: Normal Color, Warm/Dry, Rash (EXTENSIVE ANIKA INTERTRIGO TO INGUINAL AREA/ABDOMINAL FOLDS/UNDER BREASTS), Tattoos/Piercings Results Lab Laboratory Tests 09/21/21 05:33 Assessment/Plan Assessment/Plan . ARMEN BLUM MD Sep 22, 2021 11:10
--- NOTE | 2021-09-22 12:01 | Discharge Summary ---
Diagnosis/Chief Complaint Date of Admission Sep 17, 2021 at 23:15 Date of Discharge Discharge Date: Sep 22, 2021 Primary Care No,Local Physician Discharge Diagnosis (1) Acute and chronic respiratory failure ([id number]-[id number]) Status: Acute (2) Obesity hypoventilation syndrome Status: Chronic (3) MARIA ISABEL (obstructive sleep apnea) Status: Chronic (4) Super-super obese Status: Chronic (5) UTI (urinary tract infection) Status: Acute (6) Debility Status: Chronic Discharge Summary Discharge Physical Exam Allergies: Coded Allergies: [place] And Derivatives (Verified Allergy, Intermediate, 12/19/20) MAKES TONGUE BREAK OUT duloxetine (Verified Allergy, Unknown, 03/17/20) tramadol (Verified Allergy, Unknown, 03/17/20) butorphanol (Unverified Adverse Reaction, Severe, 08/04/18) HALLUCINATIONS Penicillins (Unverified Adverse Reaction, Unknown, NAUSEA, 08/04/18) Vitals & I&Os Vital Signs Date Time Temp Pulse Resp B/P (MAP) Pulse Ox O2 Delivery O2 Flow Rate FiO2 09/22/21 12:37 72 09/22/21 11:04 36.6 18 116/55 (75) 93 High Flow N/C 5.00 09/21/21 20:50 40 General Appearance: No Apparent Distress, Chronically ill, Obese Respiratory: Lungs Clear, Decreased Breath Sounds Cardiovascular: Regular Rate, Rhythm Neurologic/Psychiatric: Alert, Oriented x3 Hospital Course Patient was admitted to the hospital due to acute on chronic respiratory failure with hypoxia. She has known obesity hypoventilation syndrome and has been unable to obtain noninvasive positive pressure ventilation at home. She prese nted hypercapnic and was admitted to the ICU. She improved with BiPAP use in the hospital. We did trial her off of BiPAP while she was in the hospital and she had a significant rise in her CO2 of nearly 20. It was deemed unsafe to discharge her home without this. This information was faxed to her insurance for hopeful approval of noninvasive positive pressure ventilation at home. Despite all of this patient was unwilling to wait for this to be delivered to her house prior to discharge as her landlord was attempting to get a new house for them to live in and she felt the need to be present then. She did sign a refusal of treatment for this to be arranged prior to discharge. And she was discharged home in improved condition to follow-up with her primary care provider and her primary hair blender. Labs (last 24 hrs) Microbiology 09/17/21 Urine Culture - Final, Complete Escherichia coli Patient resulted labs reviewed. Pending Labs Discussion & Recommendations Discharge Planning: >30 minutes discharge planning Discharge Home Medications: Active Scripts Active Torsemide 20 Mg Tablet 20 Mg PO 0700,1700 Spironolactone 100 Mg Tablet 50 Mg PO DAILY Reported Gold Levi Medicated Body Powd (Menthol/Zinc Oxide) 113 Gm Powder 1 Applic TP UD PRN Divalproex Sodium 500 Mg Tablet.dr 500 Mg PO BID LAST FILLED 07-11-2021 #60/30 DAY SUPPLY Baclofen 20 Mg Tablet 20 Mg PO BID W/FOOD PRN Calmoseptine Ointment (Menthol/Lanolin/Calamine/Znox) 71 Gm Oint 1 Applic TOP QID PRN Solifenacin Succinate 5 Mg Tablet 5 Mg PO DAILY Diclofenac Sodium 100 Gm Gel..gram. 2 Gm TOP TID PRN Levothyroxine Sodium 25 Mcg Tablet 25 Mcg PO DAILY TAKES 25MCG +200MCG TOGETHER Insulin Aspart 100 Unit/1 Ml Vial Unit SQ UD USES PER PUMP Pregabalin 200 Mg Capsule 200 Mg PO BID Aspirin EC (Aspirin) 81 Mg Tablet.dr 81 Mg PO DAILY Pantoprazole Sodium 40 Mg Tablet.dr 40 Mg PO DAILY Losartan Potassium 100 Mg Tablet 100 Mg PO DAILY Pramipexole Dihydrochloride (Pramipexole Di-HCl) 1 Mg Tablet 1 Mg PO HS Naproxen 500 Mg Tablet 500 Mg PO BID PRN Levothyroxine Sodium 200 Mcg Tablet 200 Mcg PO DAILY TAKES 25MCG +200MCG TOGETHER Sumatriptan Succinate 100 Mg Tablet 100 Mg PO UD PRN Metoprolol Tartrate 100 Mg Tablet 100 Mg PO BID Atorvastatin Calcium 40 Mg Tablet 40 Mg PO HS LAST FILLED 07-11-2021 #30/30 DAY SUPPLY Instructions to patient/family Please see electronic discharge instructions given to patient. Problem Qualifiers (1) Acute and chronic respiratory failure ([id number]): Respiratory failure complication: hypoxia and hypercapnia Qualified Codes: J96.21 - Acute and chronic respiratory failure with hypoxia; J96.22 - Acute and chronic respiratory failure with hypercapnia EBONIE MCCLENDON MD Sep 22, 2021 12:01
--- NOTE | 2021-09-22 12:51 | Physical Therapy Daily Note ---
PT Daily Note-Current Subjective Patient reports that she did not want to get out of bed, but would try anyways. Patient reports that her left leg had been in pain recently Pain Comment: No verbal pain rating was given. Mental Status Patient Orientation: Person, Place, Time, Situation Attachments: Oxygen, Alcantar Catheter Transfers SCALE: Activities may be completed with or without assistive devices. 9-Folrrnfijo-hphdggv completes the activity by him/herself with no assistance from a helper. 5-Set-up or Clean-up Assistance-helper sets up or cleans up; patient completes activity. [place] assists only prior to or following the activity. 4-Supervision or Touching Assistance-helper provides verbal cues and/or touchin g/steadying and/or contact guard assistance as patient completes activity. Assistance may be provided throughout the activity or intermittently. 3-Partial/Moderate Assistance-helper does LESS THAN HALF the effort. [place] lifts, holds or supports trunk or limbs, but provides less than half the effort. 2-Substantial/Maximal Assistance-helper does MORE THAN HALF the effort. [place] lifts or holds trunk or limbs and provides more than half the effort. 6-Kcpbssbgc-kokgla does ALL the effort. Patient does none of the effort to complete the activity. Or, the assistance of 2 or more helpers is required for the patient to complete the activity. If activity was not attempted, code reason: 7-Patient Refused. 9-Not Applicable-not attempted and the patient did not perform the activity before the current illness, exacerbation or injury. 10-Not Attempted due to Environmental Limitations-(lack of equipment, weather restraints, etc.). 88-Not Attempted due to Medical Conditions or Safety Concerns. Roll Left & Right (QC): 2 Sit to Lying (QC): 1 Lying to Sitting/Side of Bed(Q: 1 Sit to Stand (QC): 2 Weight Bearing Full Weight Bearing Full Weight Bearing Gait Training Does the Patient Walk?: No and Walking Goal IS indicated Exercises Seated Therapy Exercises: Sit to stand Seated Reps: 2 Treatments Patient tolerated minimal activity; standing x2 Assessment Current Status: Poor Progress Patient demonstrated increased weakness since prior session as she was not able to tolerate standing with FFW. 2 attempts were made to stand. PT Inside Sales Assistant Goals Inside Sales Assistant Goals PT Shelter Goals Time Frame: Oct 01, 2021 Roll Left & Right (QC): 4 Sit to Lying (QC): 4 Lying-Sitting on Side/Bed(QC): 4 Sit to Stand (QC): 4 Chair/Gnu-rq-Ifmmz Xfer(QC): 4 PT Plan Problem List Problem List: Activity Tolerance, Functional Strength, Safety, Balance, Gait, Transfer, Bed Mobility Treatment/Plan Treatment Plan: Continue Plan of Care Treatment Plan: Bed Mobility, Education, Functional Activity Tatiana, Functional Strength, Safety, Therapeutic Exercise, Transfers Treatment Duration: Oct 01, 2021 Frequency: 6 times per week Estimated Hrs Per Day: .25 hour per day Patient and/or Family Agrees t: Yes Safety Risks/Education Patient Education: Transfer Techniques, Correct Positioning, Safety Issues Teaching Recipient: Patient Teaching Methods: Discussion Response to Teaching: Verbalize Understanding Time/GCodes Time In: 0952 Time Out: 1006 Total Billed Treatment Time: 14 Total Billed Treatment 1 visit FA 14min WARREN MUNIZ PT Sep 22, 2021 12:51
== END 2021-09-22 13:40 | disposition home or self-care (01) | DRG 189 ==
LOC: EDUNIT# 20:43 → ER 20:44 → ICU 23:15 → 4TH 09-19 14:56
PROVIDERS: ADMIT Internal Medicine; ATTEND Internal Medicine
PROC: 5A09357 Assistance with Respiratory Ventilation, Less than 24 Consecutive Hours, Continuous Positive Airway Pressure (ICD-10-PCS; principal; 2021-09-17)
PROC: 5A0935A Assistance with Respiratory Ventilation, Less than 24 Consecutive Hours, High Flow/Velocity Cannula (ICD-10-PCS; 2021-09-18)
DX: J96.21 Acute and chronic respiratory failure with hypoxia (principal); E66.2 Morbid (severe) obesity with alveolar hypoventilation; Z68.45 Body mass index [BMI] 70 or greater, adult; N39.0 Urinary tract infection, site not specified; J96.22 Acute and chronic respiratory failure with hypercapnia; I11.0 Hypertensive heart disease with heart failure; I50.9 Heart failure, unspecified; E11.65 Type 2 diabetes mellitus with hyperglycemia; Z79.4 Long term (current) use of insulin; R53.81 Other malaise; E03.9 Hypothyroidism, unspecified; Z86.73 Personal history of transient ischemic attack (TIA), and cerebral infarction without residual deficits; Z79.82 Long term (current) use of aspirin; Z20.822 Contact with and (suspected) exposure to COVID-19; Z79.899 Other long term (current) drug therapy; I25.10 Atherosclerotic heart disease of native coronary artery without angina pectoris; I25.2 Old myocardial infarction; E78.00 Pure hypercholesterolemia, unspecified; E11.40 Type 2 diabetes mellitus with diabetic neuropathy, unspecified; G40.909 Epilepsy, unspecified, not intractable, without status epilepticus; M79.7 Fibromyalgia; M41.9 Scoliosis, unspecified; G89.29 Other chronic pain; M54.9 Dorsalgia, unspecified; F41.9 Anxiety disorder, unspecified; F32.A Depression, unspecified; Z87.891 Personal history of nicotine dependence
CPT/HCPCS: 36415; 36600; 51702; 71045; 72170; 73590; 73610; 73630; 80048; 80053; 80306; 80320; 80329; 81000; 82140; 82150; 82550; 82553; 82805; 82947; 83605; 83615; 83690; 83735; 83874; 83880; 84145; 84443; 84484; 84703; 85025; 85610; 85652; 85730; 86141; 87077; 87088; 87186; 87636; 93005; 93041; 94010; 94640; 94660; 94760; 96365; 96375

== ENCOUNTER 2021-10-28 19:17 | Emergency (ER) | payer MEDICAID ==
[~2021-10-28 19:17] MED LIST changes: +BACL20TA PO; +DIVA-76 PO; +LEVO25TA5 PO; +MENT113P TP; +MENT71OI TOP; +SPIR100T4 PO; +TORS20TA3 PO
--- NOTE | 2021-10-28 19:37 | ED Head Injury ---
General Chief Complaint: Head/Cervical Problems Stated Complaint: FALL/HEADACHE Source: patient, EMS Exam Limitations: no limitations History of Present Illness Date Seen by Provider: Oct 28, 2021 Time Seen by Provider: 19:19 Initial Comments Patient to the ER by EMS from home with chief complaint about 2:00 in the afternoon she was getting out of her car and she has to use a walker she stumbled and fell to the ground striking the left side of her face. EMS was summonsed and she declined to be transported at that time stating she felt fine. No syncope, loss of consciousness or history of blood thinner use. She does use an aspirin daily. She uses naproxen as needed for pain. She has not taken anything for her pain since it happened. She is having a little nausea off and on but no vomiting fevers chills cough shortness of air dysuria. Her home health nurse came and visited her later and saw she had a large shiner growing on her left cheek and instructed her to go to the ER. EMS reports she has been comfortable rating her pain about a 5 out of 10 and texting on her phone the entire time, neurologically intact and oriented. Allergies and Home Medications Allergies Coded Allergies: [place] And Derivatives (Verified Allergy, Intermediate, 12/19/20) MAKES TONGUE BREAK OUT duloxetine (Verified Allergy, Unknown, 03/17/20) tramadol (Verified Allergy, Unknown, 03/17/20) butorphanol (Unverified Adverse Reaction, Severe, 08/04/18) HALLUCINATIONS Penicillins (Unverified Adverse Reaction, Unknown, NAUSEA, 08/04/18) Patient Home Medication List Home Medication List Reviewed: Yes Aspirin (Aspirin EC) 81 Mg Tablet.dr, 81 MG PO DAILY, (Reported) Entered as Reported by: SAMEER BUTTS on 11/19/20 1054 Atorvastatin Calcium (Atorvastatin Calcium) 40 Mg Tablet, 40 MG PO HS, (Reported) Entered as Reported by: LUIS MATHIS on 08/04/18 1734 Baclofen (Baclofen) 20 Mg Tablet, 20 MG PO BID W/FOOD PRN for MUSCLE SPASMS, (Reported) Entered as Reported by: SAMEER BUTTS on 09/19/21 1409 Diclofenac Sodium (Diclofenac Sodium) 100 Gm Gel..gram., 2 GM TOP TID PRN for PAIN-BREAKTHROUGH, (Reported) Entered as Reported by: SAMEER BUTTS on 09/19/21 140 Divalproex Sodium (Divalproex Sodium) 500 Mg Tablet., 500 MG PO BID, (Report ed) Entered as Reported by: SAMEER BUTTS on 09/19/21 140 Insulin Aspart (Insulin Aspart) 100 Unit/1 Ml Vial, UNIT SQ UD, (Reported) Entered as Reported by: ALIX RIOS on 12/18/20 0239 Levothyroxine Sodium (Levothyroxine Sodium) 200 Mcg Tablet, 200 MCG PO DAILY, (Reported) Entered as Reported by: SAMEER BUTTS on 10/14/20 153 Levothyroxine Sodium (Levothyroxine Sodium) 25 Mcg Tablet, 25 MCG PO DAILY, (Reported) Entered as Reported by: SAMEER BUTTS on 09/19/21 140 Losartan Potassium (Losartan Potassium) 100 Mg Tablet, 100 MG PO DAILY, (Reported) Entered as Reported by: SAMEER BUTTS on 10/14/20 153 Menthol/Lanolin/Calamine/Znox (Calmoseptine Ointment) 71 Gm Oint, 1 APPLIC TOP QID PRN for WOUND CARE, (Reported) Entered as Reported by: SAMEER BUTTS on 09/19/21 140 Menthol/Zinc Oxide (Gold Levi Medicated Body Powd) 113 Gm Powder, 1 APPLIC TP UD PRN for SKIN IRRITATION, (Reported) Entered as Reported by: SAMEER BUTTS on 09/19/21 140 Metoprolol Tartrate (Metoprolol Tartrate) 100 Mg Tablet, 100 MG PO BID, (Reported) Entered as Reported by: LUIS MATHIS on 08/04/18 1734 Naproxen (Naproxen) 500 Mg Tablet, 500 MG PO BID PRN for PAIN-MILD (1-4), (Reported) Entered as Reported by: SAMEER BUTTS on 10/14/20 153 Ondansetron (Ondansetron Odt) 4 Mg Tab.rapdis, 4-8 MG PO Q6H PRN for NAUSEA/VOMITING Prescribed by: LEATHA ENGLISH on 10/28/211953 Pantoprazole Sodium (Pantoprazole Sodium) 40 Mg Tablet., 40 MG PO DAILY, (Reported) Entered as Reported by: SAMEER BUTTS on 10/14/20 1536 Pramipexole Di-HCl (Pramipexole Dihydrochloride) 1 Mg Tablet, 1 MG PO HS, (Reported) Entered as Reported by: SAMEER BUTTS on 10/14/20 1536 Pregabalin (Pregabalin) 200 Mg Capsule, 200 MG PO BID, (Reported) Entered as Reported by: SAMEER BUTTS on 11/19/20 1054 Solifenacin Succinate (Solifenacin Succinate) 5 Mg Tablet, 5 MG PO DAILY, (Reported) Entered as Reported by: SAMEER BUTTS on 09/19/21 1409 Spironolactone (Spironolactone) 100 Mg Tablet, 50 MG PO DAILY Prescribed by: EBONIE MCCLENDON on 09/22/21 1041 Sumatriptan Succinate (Sumatriptan Succinate) 100 Mg Tablet, 100 MG PO UD PRN for MIGRAINE, (Reported) Entered as Reported by: LUIS MATHIS on 08/04/18 1734 Torsemide (Torsemide) 20 Mg Tablet, 20 MG PO 0700,1700 Prescribed by: EBONIE MCCLENDON on 09/22/21 1041 Review of Systems Review of Systems Constitutional: No chills, No diaphoresis Eyes: Denies Blindness, Denies Drainage Ears, Nose, Mouth, Throat: denies ear pain, denies ear discharge Respiratory: No cough, No short of breath Cardiovascular: No chest pain, No edema Gastrointestinal: No abdominal pain, No nausea, No vomiting Genitourinary: No discharge, No dysuria All Other Systems Reviewed Negative Unless Noted: Yes Past Rljguzw-Hvufmn-Gugpzj Hx Patient Social History Tobacco Use?: No Substance use?: No Alcohol Use?: Yes Alcohol Frequency: Rarely Immunizations Up To Date Tetanus Booster (TDap): Unknown PED Vaccines UTD: Yes Influenza Vaccine Up-to-Date: Yes; Up-to-Date First/Initial COVID19 Vaccinat: AUGUST 2020 Second COVID19 Vaccination Mamadou: SEPTEMBER 2020 Third COVID19 Vaccination Date: AUGUST 2020 Seasonal Allergies Seasonal Allergies: No Past Medical History Surgery/Hospitalization HX: COPD, CHF Surgeries: Yes Cardiac, Section, Gallbladder, Orthopedic, Tubal Ligation Respiratory: Yes (RESTRICTIVE LUNG DZ;LEFT CHEST DEFORMITY;CHF;CHRONIC RESP FAILURE-3L/NC) Sleep Apnea Currently Using CPAP: No Currently Using BIPAP: No Cardiac: Yes (CHF; CARDIAC ABLATION FOR SVT ) Coronary Artery Disease, Heart Attack, High Cholesterol, Hypertension, Irregular Heartbeat Neurological: Yes Headaches /Migraines, Neuropathy, Seizure Disorder, Stroke Reproductive Disorders: No 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 Genitourinary: Yes UTI-Chronic Gastrointestinal: Yes (Reports celiac disease) Ulcer, Gall Bladder Disease Musculoskeletal: Yes (BACK SURGERY FOR SCOLIOSIS; LEFT FOOT SURGERY) Fibromyalgia, Scoliosis, Chronic Back Pain Endocrine: Yes (SUPER MORBID OBESITY--> 500LBS) Diabetes, Insulin dep, Hypothyroidsim HEENT: Yes (EDENTULOUS) Cancer: No Psychosocial: Yes Anxiety, Depression Integumentary: No Blood Disorders: No Family Medical History No Pertinent Family Hx SOCIAL HISTORY: -ETOH--OCCASIONAL USE -DRUGS--HX OF IV METHAMPHETAMINE USE -SMOKED 1/2 PPD FROM AGE 19 TO 23 PAST SURGICAL HISTORY: -BACK SURGERY FOR SCOLIOSIS AGE 15 -LEFT FOOT RECONSTRUCTION BECAUSE OF PROBLEM WITH ARCH OF FOOT - X 2 -EGD -CARDIAC ABLATION FOR SVT -CHOLECYSTECTOMY -BILATERAL TUBAL LIGATION ADDITIONAL PAST MEDICAL HISTORY: -CLAIMS SHE HAD A "STRESS HEART ATTACK" AT AGE 27--NO CARDIAC CATH, BUT HAD STRESS TEST AND ECHOCARDIOGRAM -SEIZURES DX AGE 33 -HAD POSSIBLE STROKE WITH ONE SEIZURE-HAD LEFT SIDE PARALYSIS FOR 2 WEEKS, COMPLETELY RESOLVED -PERIPHERAL NEUROPATHY -CHRONIC LEFT FOOT NUMBNESS SINCE LEFT FOOT SURGERY -IMPAIRED MOBILITY--HAS USED WALKER, WHEELCHAIR AND MOTORIZED WHEELCHAIR--NOW ESSENTALLY BED BOUND DUE TO SUPER MORBID OBESITY AND CHRONIC GENERALIZED PAIN AND LEG AND FOOT PAIN LONG HISTORY OF NON-COMPLIANCE IN ALL ASPECTS OF CARE Physical Exam Vital Signs Vital Signs - First Documented 10/28/21 19:20 Temp 36.0 Pulse 88 Resp 16 B/P (MAP) 197/111 (139) Pulse Ox 98 O2 Delivery Nasal Cannula O2 Flow Rate 2.00 Capillary Refill : Height, Weight, BMI Height: 5'0.00" Weight: 389lbs. 0.4oz. 176.785579hb; 82.23 BMI Method:Stated General Appearance: WD/WN, no apparent distress HEENT: PERRL/EOMI, normal ENT inspection, TMs normal, pharynx normal Neck: non-tender, full range of motion, supple, normal inspection Cardiovascular: normal peripheral pulses, regular rate, rhythm Respiratory: no respiratory distress, no accessory muscle use Gastrointestinal: non tender, soft Psychiatric: alert, oriented x 3 Crainal Nerves: normal hearing, normal speech, PERRL Motor/Sensory: no motor deficit, no sensory deficit Skin: normal color, warm/dry [place] Coma Score Best Eye Response: (4) Open Spontaneously Best Verbal Response: (5) Oriented Best Motor Response: (6) Obeys Commands [place] Total: 15 Progress/Results/Core Measures Results/Orders My Orders Orders - LEATHA ENGLISH Ketorolac Injection (Toradol Injection) (10/28/21 19:45) Ondansetron Injection (Zofran Injectio (10/28/21 19:45) Medications Given in ED Current Medications Medications Dose Ordered Sig/Alex Route Start Time Stop Time Status Last Admin Dose Admin Ketorolac Tromethamine 60 mg ONCE ONCE IM 10/28/21 19:45 10/28/21 19:46 DC 10/28/21 19:53 60 MG Ondansetron HCl 8 mg ONCE ONCE IM 10/28/21 19:45 10/28/21 19:46 DC 10/28/21 19:53 8 MG Vital Signs/I&O 10/28/21 10/28/21 19:20 20:32 Temp 36.0 36.0 Pulse 88 89 Resp 16 16 B/P (MAP) 197/111 (139) 161/95 Pulse Ox 98 95 O2 Delivery Nasal Cannula Nasal Cannula O2 Flow Rate 2.00 2.00 Progress Progress Note : Time: 19:34 Progress Note We did discuss the risks, benefits and alternatives to doing an imaging study of her head. Since she is 51 and not on blood thinners we did offer her the opportunity for an observation knowing that she lives at home with her . She is neurologically intact and states that this would be preferable to her as she does not want to get a CT scan if she can avoid it. She did want something for pain and nausea so we ordered Toradol and Zofran IM. We did discuss return precautions. Plan to observe her for a short while and if she remains neurologically intact now over 5 hours since the fall we will give her an ice pack and let her go home with return precautions. Patient is okay with this plan. Her blood sugar is 169 according to her pump and has been running well lately. Departure Impression Primary Impression: Fall Qualified Codes: W19.XXXA - Unspecified fall, initial encounter Additional Impressions: Contusion of face Qualified Codes: S00.83XA - Contusion of other part of head, initial encounter Concussion Qualified Codes: S06.0X0A - Concussion without loss of consciousness, initial encounter Disposition: 01 HOME, SELF-CARE Condition: Stable Departure-Patient Inst. Decision time for Depature: 19:55 Referrals: NO,LOCAL PHYSICIAN (PCP/Family) Primary Care Physician Patient Instructions: Contusion (DC), Concussion in Adults Add. Discharge Instructions: Concussion is characterized by bruising of the brain such as from your fall and hitting her head. It is not found on imaging but is evident in your nausea, headache and tiredness. If you are having any other symptoms then you need to get sleep. If you have confusion, loss of control of your arms or legs or other neurologic symptoms then you need to promptly return to ER for a CT scan of the head. Tylenol and Motrin as necessary for pain. Ondansetron 1 to 2 tablets every 6 hours under the tongue as necessary for nausea or vomiting. If her symptoms are persistent into next week then you can follow-up with your primary care doctor for help managing them. Ice pack to your face 20 minutes on every 2 hours for the first 2 days to reduce swelling and pain. All discharge instructions reviewed with patient and/or family. Voiced understanding. Scripts Ondansetron (Ondansetron Odt) 4 Mg Tab.rapdis 4-8 MG PO Q6H PRN for NAUSEA/VOMITING, #12 TAB 0 Refills Prov: LEATHA ENGLISH 10/28/21 LEATHA ENGLISH Oct 28, 2021 19:37
[2021-10-28] MEDS ORDERED: ONDANSETRON 4 MG/2 ML (SDV) Z0FRAN IM ONE (19:45)
[2021-10-28] MEDS ORDERED: KETOROLAC 60 MG/2 ML VIAL IM ONE (19:45)
[2021-10-28] MEDS ORDERED: ONDA4TAB11 PO (19:54)
[2021-10-28 20:32] VITALS: BP 161/95
== END 2021-10-28 20:44 | disposition home or self-care (01) ==
LOC: ER 19:17
DX: S06.0X0A Concussion without loss of consciousness, initial encounter (principal); E11.40 Type 2 diabetes mellitus with diabetic neuropathy, unspecified; E66.01 Morbid (severe) obesity due to excess calories; Z79.4 Long term (current) use of insulin; Z79.82 Long term (current) use of aspirin; V48.4XXA Person boarding or alighting a car injured in noncollision transport accident, initial encounter
CPT/HCPCS: 99284

== ENCOUNTER 2021-11-15 23:06 | Inpatient (IN) | payer MEDICAID ==
[~2021-11-15] VITALS: Ht 152.4 cm; Wt 171.6 kg
[~2021-11-15 23:06] MED LIST changes: +ONDA4TAB11 PO
--- OUTSIDE RECORDS SUMMARY | 2021-11-15 23:39 | XMS REPORT | Clinical Summary ---
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 Farmer Meat Name Role Phone Apurva Villavicencio DO PCP Allergies Comments Active Allergy Reactions [...] Comments Vital Sign 167/90 05/05/2019 4:00 PM STONE B[facility]ER Blood Pressure 92 05/05/2019 4:00 PM [employer] B[employer]ER Pulse 36.5 C (97.7 F) 05/05/2019 4:00 PM STONE BANKER Temperature 19 05/05/2019 4:00 PM STONE BANKER Respiratory Rate 96% 05/05/2019 4:00 PM STONE BANKER Oxygen Saturation - - Inhaled Oxygen Concentration 139 kg (307 lb 8 oz) 05/05/2019 2:30 PM STONE BANKER Weight 152.4 cm (5') 01/07/2019 4:38 PM CDT Height 60.05 01/07/2019 4:38 PM CDT Body Mass Index Plan of Treatment Health Maintenance Due Date Last Done Comments CT Colonography 1972 Cologuard 1972 Colonoscopy 1972 Colorectal Cancer 1972 Screening Preventative Visit 18-64 1972 MMR Vaccines (1 of 1 - 1973 Standard series) Varicella Vaccines (1 of 1973 2 - 2-dose childhood series) COVID-19 Vaccine (1) 1977 Foot Exam 1982 Ophthalmology Exam 1982 Depression Screening 1984 Hepatitis B Vaccines (1 1991 of 3 - Risk 3-dose series) HPV/Cotest 2002 Hemoglobin A1C 04/18/2017 10/17/2016 FOBT/FIT 2017 Sigmoidoscopy 2017 Lipid Panel 08/28/2017 08/28/2016, 10/27/2013, 06/17/2012 Cervical Cancer Screening 08/28/2019 Pap Smear 08/28/2019 08/28/2016 Urine Microalbumin 11/19/2019 11/18/2018 DTaP,Tdap,and Td Vaccines 11/16/2021 11/17/2011 (2 - Td or Tdap) Influenza Vaccine (Season 03/02/2022 08/28/2016, Ended) 06/12/2012, 06/29/2010, Additional history exists HIB Vaccines Aged Out No longer eligible [...] Effective Phone Address Plan / Dates Group [facility] MEDICAID REPLACEMENT [facility] [id number] 2018- [address] MEDICAID Present [address] [facility] [phone] Advance Directives Patient Airline Reservationist Explanation Type Date Recorded no Advance Directives and Living Will no Power of Compliance Review Officer Care Teams Start Date End Date Poultry Farmer Meat Relationship Specialty 05/05/19 Apurva Villavicencio DO PCP - General Internal Medicine
--- OUTSIDE RECORDS SUMMARY | 2021-11-15 23:39 | XMS REPORT | Clinical Summary ---
Author Author [facility] Organization [facility] Address Unknown Phone Unavailable Care Team Providers Care Mucker Cofferdam Name Role Phone Danis Oviedo RN Unavailable Unavailable Todd Lee MD Unavailable Mendez Kaye MD Unavailable Unavailable Uziel Hanna DO PCP Source Comments Some departments are not documenting in the electronic medical record. If you d o not see the information that you expected, contact Release of Information in [facility] [employer] Information Management department at [phone] for further assistan ce in locating additional records.[facility] Allergies Comments Active Allergy Reactions Severity Noted [...] 9 Esophagitis mouth twice daily. Active Insulin [place] Use as 100 each 3 (Disposable) 31 gauge x directed with 9 07/05" ndleIndications: victoza Type 2 diabetes mellitus with hyperglycemia, with long-term current use of insulin ([facility]) Active atorvastatin (LIPITOR) 40 Take one 90 tablet 1 mg tabletIndications: tablet by 9 Type 2 diabetes mellitus mouth at with hyperglycemia, with bedtime long-term current use of daily. insulin ([facility]), Other hyperlipidemia Active baclofen (LIORESAL) 10 mg Take one 90 tablet 1 tabletIndications: Left tablet by 9 foot pain mouth at bedtime as needed. Active blood sugar diagnostic Use one strip 400 strip 3 test stripIndications: as directed 9 Type 2 diabetes mellitus before meals with hyperglycemia, with and at long-term current use of bedtime. insulin ([facility]) Active diclofenac (VOLTAREN) 1 % Apply two g 300 g 3 topical gel topically to 9 affected area three times daily. Active divalproex (DEPAKOTE) 500 Take one [address] tablet tablet by 9 mouth three times daily. Take with food. Active ferrous sulfate (FEOSOL) Take one 90 tablet 1 1 325 mg (65 mg iron) tablet [...] COPD lungs daily. with asthma ([facility]) Active furosemide (LASIX) 40 mg Take one 180 tablet 1 1 tabletIndications: tablet by 9 Chronic heart failure, mouth twice unspecified heart failure daily. type ([facility]) Active hydrOXYzine (ATARAX) 25 Take [...] long-term current use of insulin ([facility]) Active lancets 32 gauge 32 [...] long-term current use of insulin ([facility]) Active losartan (COZAAR) 50 mg Take one 90 tablet 1 tabletIndications: tablet by 9 Essential hypertension, mouth daily. Type 2 diabetes mellitus with hyperglycemia, with long-term current use of insulin ([facility]) Active metoprolol tartrate Take one 180 tablet 1 (LOPRESSOR) 100 mg tablet by 9 tabletIndications: SVT mouth twice (supraventricular daily. tachycardia) ([facility]) Active pantoprazole DR Take one [...] Take with unspecified heart failure food. type (HCC), Dyspnea, unspecified type, Weight gain Active NOVOLOG U-100 INSULIN INJECT 30 30 mL 3 08/31 ASPART 100 unit/mL UNITS 0 injectionIndications: SUBCUTANEOUSL Type 2 diabetes mellitus Y THREE TIMES with hyperglycemia, with A DAY WITH long-term current use of MEALS insulin ([facility]) Active insulin detemir U-100(+) INJECT [...] Can do foot exam in the future Microalbumin-not indicated she is on AR B, negative in the past on 3 occasions On statin [...] original. Presumed HFpEF admitted August [facility] with edema dyspnea and chest [...] level 12.8 -now on high-dose vitamin D replacement-50,000 units x 12 weeks RLS (restless legs [...] teenager ABLATION OF DYSRHYTHMIC For SVT at [facility] FOCUS COLONOSCOPY w/EGD Medical History Medical History Date Comments Htn Neoplasm of unspecified nature, site unspecified SVT (supraventricular tachycardia) ([facility]) Unspecified mental or behavioral problem Scoliosis Unspecified disease of respiratory COPD and ILD; ch ronic resp failure system Back pain Wound healing, delayed Murmur As a child Heart failure with preserved ejection fraction (HCC) Hyperlipidemia Myocardial infarction ([facility]) 1998 "Mild" Arthritis Left knee Fibromyalgia Asthma Using inhalers as needed, n ot daily COPD (chronic obstructive pulmonary Uses 2LNC w/exe rtion & at night disease) ([facility]) Type 2 diabetes mellitus with 11/22/2018 hyperglycemia, with long-term current use of insulin ([facility]) Gastrointestinal disorder Takes Protonix daily for inflammed esophagus, history of peptic ulcer ~2004 Fatty liver Hypothyroid Epilepsy ([facility]) Depakote, seizure 03/24/19, "grand mal" as per patient, PCP aware Migraines Monthly or more often Family History Medical History Relation Name Comments Blood Clots Brother 3 Unknown to Patient Father Depression Maternal Aunt [...] Hypertension Sister Relation Name Status Comments Brother 1 MVA Brother 2 SIDS Brother 3 Alive Father Maternal Aunt Maternal Grandfather Maternal [...] Assigned at Date Recorded Not on file Obstetrics History Last Filed Vital Signs Reading Time Taken [...] Health Maintenance Due Date Last Done Comments PNEUMONIA VACCINE (DM) 1972 HIV SCREENING 1987 FOOT EXAM 1990 HEPATITIS C SCREENING 1990 CERVICAL CANCER SCREENING 1993 BREAST CANCER SCREENING 2012 PHYSICAL (COMPREHENSIVE) 11/19/2019 11/18/2018 EXAM DILATED EYE EXAM 03/27/2020 03/27/2018, 03/22/2018 (Previously completed) HBA1C 10/19/2020 04/20/2020, 01/06/2020, 08/05/2019, Additional history exists COVID-19 VACCINE (3 - 03/30/2021 10/28/2020, Booster for Moderna 09/29/2020 series) DTAP/TDAP VACCINES (2 - 11/16/2021 11/17/2011 Td or Tdap) INFLUENZA VACCINE 05/02/2022 04/02/2019 Results Not on filefrom Last 3 Months Insurance Type Payer Benefit Subscriber ID Effective Phone Address Plan / Dates Group Medicaid [facility] MEDICAID [facility] [id number] 2018-P [address] [facility] [address] [address] [place] [address] Advance Directives 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
--- OUTSIDE RECORDS SUMMARY | 2021-11-15 23:39 | XMS REPORT | Clinical Summary ---
Author Author [facility] Address Unknown Phone Unavailable Care Team Providers Care Tooth Cutter Name Role Phone Jourdan Turk MD Unavailable [...] twice daily uncontrolled, managed as type 1 Additional Information Patient not taking. Reported on [...] as uncontrolled, managed as needed type 1 (problems with insulin pump sticking). Active Problems [...] from the original. Reviewed Discharge Summary from [facility] [place] Spoke with [facility] in [place], [place] She states that they have had provider following [place] while she has been living down in [place] Discussed that she will take care and [...] the original. Order for pads Sent to [facility] 10/29/2019 Last Assessment & Plan: Formatting of [...] original. Presumed HFpEF admitted [facility] with edema dyspnea and chest pain [...] weight gain Echo repeated 09/2020 - at [facility] Normal EF Will continue lasix BID at [...] taking medication to include diuretics and to scrap picker a new blood pressure cuff fo [...] Due COVID-19 mRNA LNP-S PF 10/28/2020, 09/29/2020 (Moderna-Learning Facilitator) INFLUENZA IIV4 PF 04/02/2019, 04/06/2017, (FLULAVAL,FLUZONE,FLUARIX ,AFLURIA QUAD) Influenza IIV3 MDV 07/24/2018 (Multi-dose vial) Influenza IIV3 PFree 06/12/2012, 06/29/2010, 01/2010, 06/02/2008 Influenza IIV4 MDV 07/24/2018 (Multi-dose vial) Influenza TIV (HX thru 06/02/2008, 05/06/2007, 09/2005, 06/13/2003 Mar 31 2010) MMR 08/05/2019 Pneumococcal 08/05/2019 Polysaccharide (23-valent) Tdap 11/17/2011 Family History Medical History Relation Comments Other Brother 2 blood clotting issu e No Known Problems Daughter 1 Other Daughter 2 Frequent UTIs Heart attack Maternal Grandfather Hypertension Maternal Grandmother Transient Ischemic Attack Maternal Grandmother Diabetes Mother Heart Surgery Mother Stent placement Heart disease Mother Hypertension Mother Obesity Mother Strabismus Mother Other Other 1 Maternal Grandmothe r - is , Cause of :strokes; Other History: irregular heartbeat; str curt Other Other 2 Family History Comm ents - Pt does not know anything about her father., All of her family has HTN. Relation Status Comments Brother 1 MVA (Age 49) Brother 2 Alive Brother 3 SIDS (Age 23mo) Daughter 1 Alive Daughter 2 Alive Father Maternal Grandfather Maternal Grandmother Mother Other 1 Other 2 Paternal Grandfather Paternal Grandmother Sister Alive Social History Date Tobacco Use [...] 06/18/2019 relatives? How often do you attend sikhism or orthodox Never 06/18/2019 services? Do you belong to any clubs or organizations such No 06/18/2019 as sikhism groups, unions, fraternal or athletic groups, or [...] place to sleep or slept in a fpc (including now)? Control Partners Comments Sexually Active [...] Maintenance Due Date Last Done Comments HIV Screening 1972 Cervical Cancer Screening 1993 Colon Cancer Screening 2017 02/27/2006 Pneumo-Vaccine: 65+Yrs (2 08/05/2020 08/05/2019 - PCV) Pneumo-Vaccine: Peds (0-5 08/05/2020 08/05/2019 Yrs) & At-Risk Patients (6-64 Yrs) (2 - PCV) Urine Microalbumin 08/05/2020 08/05/2019, 08/05/2019 Diabetic Foot Exam 09/02/2020 09/03/2019 Diabetic Eye Exam 01/13/2021 01/14/2020, 01/05/2020 COVID-19 Vaccine (3 - 03/30/2021 10/28/2020, Booster for Moderna 09/29/2020 series) DTaP,Tdap,and Td Vaccines 11/16/2021 11/17/2011 (2 - Td or Tdap) Influenza Vaccine (Season 03/02/2022 04/02/2019, Ended) 07/24/2018, 07/24/2018, Additional history exists Diabetic A1C Due 05/09/2022 11/06/2021, 12/05/2020, 10/08/2020, Additional history exists MMR Vaccines-Adult Completed 08/05/2019 Hepatitis C Screening Completed 04/20/2020 HIB Vaccines Aged Out No longer eligible [...] ed? Have 3 meals a day Diet Mariajose Luevano RD LD CDE Note: 1. Didn't try 2. Could do better 3. Things are improving 4. Very well! Monitoring - Test blood Lifestyle No Littre ll, glucose Mariajose Hernandez RD LD CDE Note: 1. Didn't try 2. Could do better 3. Things are improving 4. Very well! Increase physical activity Lifestyle No Lit Mariajose sotelo, JOAO CHRISTOPHER CDE Note: 1. Didn't try 2. Could do better 3. Things are improving 4. Very well! 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 Explanation Type Date Recorded Advance Directives and Living Will Power of Block Mechanic Date Inactivated Comments Code Status Date Activated Full Code 06/22/2019 12:52 PM 06/22/2019 12:52 PM Full Code 06/17/2019 9:46 PM 06/17/2019 9:46 PM Full Code 06/17/2019 6:49 PM Care Teams Start Date End Date Tooth Cutter Relationship Specialty 02/11/20 Araceli Barba DO PCP - General Internal [address] [id number] [email or web address] 08/21/16 Jourdan Turk MD Cardiology [address] [place], [place] [id number] [email or web address] 04/05/17 Najma Ng MD Pulmonology [address] [facility] ([facility] [place], [place] [id number] [email or web address]
[2021-11-16] MEDS ORDERED: inSUlin ASPART (NovoLOG) 1 UNIT/0.01 ML (CHARGE PER UNIT) SC ONE (00:15)
[2021-11-16] MEDS ORDERED: LABETALOL HCL 20 MG/4 ML VIAL IV PRN (00:15)
--- NOTE | 2021-11-16 00:25 | Tele-ICU Consult ---
History of Present Illness History of Present Illness Date Seen by Provider: November 16, 2021 Time Seen by Provider: 00:20 History of Present Illness 51 yo F with known DM, c/o flu like Sx, diarrhea, went to OSH found to have glu > 1000, Looks like HHS, not DKA, given dose of IV insulin but to get Levimer 20 uinits and Novolog 10 units Does not have AG, HCO3 is 25 PMH includes morbid obesity, HTN, HLD, MARIA ISABEL, COPD, on 5 lpm NC at home Allergies and Home Medications Allergies Coded Allergies: Danube And Derivatives (Verified Allergy, Intermediate, 12/19/20) MAKES TONGUE BREAK OUT duloxetine (Verified Allergy, Unknown, 03/17/20) tramadol (Verified Allergy, Unknown, 03/17/20) butorphanol (Unverified Adverse Reaction, Severe, 08/04/18) HALLUCINATIONS Penicillins (Unverified Adverse Reaction, Unknown, NAUSEA, 08/04/18) Home Medications Aspirin 81 Mg Tablet.dr, 81 MG PO DAILY, (Reported) Atorvastatin Calcium 40 Mg Tablet, 40 MG PO HS, (Reported) LAST FILLED 07-11-2021 #30/30 DAY SUPPLY Baclofen 20 Mg Tablet, 20 MG PO BID W/FOOD PRN for MUSCLE SPASMS, (Reported) Diclofenac Sodium 100 Gm Gel..gram., 2 GM TOP TID PRN for PAIN-BREAKTHROUGH, (Reported) Divalproex Sodium 500 Mg Tablet.dr, 500 MG PO BID, (Reported) LAST FILLED 07-11-2021 #60/30 DAY SUPPLY Insulin Aspart 100 Unit/1 Ml Vial, UNIT SQ UD, (Reported) USES PER PUMP Levothyroxine Sodium 200 Mcg Tablet, 200 MCG PO DAILY, (Reported) TAKES 25MCG +200MCG TOGETHER Levothyroxine Sodium 25 Mcg Tablet, 25 MCG PO DAILY, (Reported) TAKES 25MCG +200MCG TOGETHER Losartan Potassium 100 Mg Tablet, 100 MG PO DAILY, (Reported) Menthol/Lanolin/Calamine/Znox 71 Gm Oint, 1 APPLIC TOP QID PRN for WOUND CARE, (Reported) Menthol/Zinc Oxide 113 Gm Powder, 1 APPLIC TP UD PRN for SKIN IRRITATION, (Reported) Metoprolol Tartrate 100 Mg Tablet, 100 MG PO BID, (Reported) Naproxen 500 Mg Tablet, 500 MG PO BID PRN for PAIN-MILD (1-4), (Reported) Ondansetron 4 Mg Tab.rapdis, 4-8 MG PO Q6H PRN for NAUSEA/VOMITING Prescribed by: LEATHA ENGLISH on 10/28/211953 Pantoprazole Sodium 40 Mg Tablet.dr, 40 MG PO DAILY, (Reported) Pramipexole Di-HCl 1 Mg Tablet, 1 MG PO HS, (Reported) Pregabalin 200 Mg Capsule, 200 MG PO BID, (Reported) Solifenacin Succinate 5 Mg Tablet, 5 MG PO DAILY, (Reported) Spironolactone 100 Mg Tablet, 50 MG PO DAILY Prescribed by: EBONIE MCCLENDON on 09/22/21 1041 Sumatriptan Succinate 100 Mg Tablet, 100 MG PO UD PRN for MIGRAINE, (Reported) Torsemide 20 Mg Tablet, 20 MG PO 0700,1700 Prescribed by: EBONIE MCCLENDON on 09/22/21 1041 Past Medical/Social/Family Hx Immunizations Up To Date First/Initial COVID19 Vaccinat: AUGUST 2020 Second COVID19 Vaccination Mamadou: SEPTEMBER 2020 Tetanus Booster (TDap): Unknown Current Status Primary Language: Slovak Past Medical History Hypertension Hypothyroidism Super super obesity Presumed obstructive sleep apnea Presumed obesity hypoventilation syndrome Family Medical History Family Hx: SOCIAL HISTORY: -ETOH--OCCASIONAL USE -DRUGS--HX OF IV METHAMPHETAMINE USE -SMOKED 1/2 PPD FROM AGE 19 TO 23 PAST SURGICAL HISTORY: -BACK SURGERY FOR SCOLIOSIS AGE 15 -LEFT FOOT RECONSTRUCTION BECAUSE OF PROBLEM WITH ARCH OF FOOT - X 2 -EGD -CARDIAC ABLATION FOR SVT -CHOLECYSTECTOMY -BILATERAL TUBAL LIGATION ADDITIONAL PAST MEDICAL HISTORY: -CLAIMS SHE HAD A "STRESS HEART ATTACK" AT AGE 27--NO CARDIAC CATH, BUT HAD STRESS TEST AND ECHOCARDIOGRAM -SEIZURES DX AGE 33 -HAD POSSIBLE STROKE WITH ONE SEIZURE-HAD LEFT SIDE PARALYSIS FOR 2 WEEKS, COMPLETELY RESOLVED -PERIPHERAL NEUROPATHY -CHRONIC LEFT FOOT NUMBNESS SINCE LEFT FOOT SURGERY -IMPAIRED MOBILITY--HAS USED WALKER, WHEELCHAIR AND MOTORIZED WHEELCHAIR--NOW ESSENTALLY BED BOUND DUE TO SUPER MORBID OBESITY AND CHRONIC GENERALIZED PAIN AND LEG AND FOOT PAIN LONG HISTORY OF NON-COMPLIANCE IN ALL ASPECTS OF CARE Review of Systems Constitutional: see HPI Focused Exam Height, Weight, BMI Height: 5'0.00" Weight: 389lbs. 0.4oz. 176.508431kp; 82.23 BMI Method:Stated Exam Exam Patient acknowledged, consented, and participated in this virtual visit which was conducted using real time audio/video Height & Weight Height: 5'0.00" Weight: 389lbs. 0.4oz. 176.014943zy; 82.23 BMI Method:Stated General Appearance: No Apparent Distress Respiratory: Lungs Clear Cardiovascular: Regular Rate, Rhythm, No Edema Gastrointestinal: normal bowel sounds, non tender Neurologic/Psychiatric: Oriented x3, Other (sleepy) Assessment/Plan Assessment/Plan HHS, will continue on SQ insulin, will see if pt can eat spoke to RN about pt Critical Care: Critically Ill Patient RICHELLE BUSCH MD November 16, 2021 00:25
[2021-11-16] MEDS: NS IV 1000 ML 1,000 ML IV SCH ×4 (01:24→13:58)
--- NOTE | 2021-11-16 02:51 | Tele-ICU Progress Note ---
Subjective Date Seen by a Provider: November 16, 2021 Time Seen by a Provider: 02:49 Subjective/Events-last exam takes sumatriptan for migraines, will order 10 mg Sepsis Event Evaluation Height, Weight, BMI Height: 5'0.00" Weight: 389lbs. 0.4oz. 176.676779rn; 82.23 BMI Method:Stated Exam Exam Patient acknowledged, consented, and participated in this virtual visit which was conducted using real time audio/video Vital Signs Date Time Temp Pulse Resp B/P (MAP) Pulse Ox O2 Delivery O2 Flow Rate FiO2 11/16/21 02:00 104 14 125/68 94 Nasal Cannula 5.00 11/16/21 01:45 103 26 139/58 96 Nasal Cannula 5.00 11/16/21 01:30 104 11 153/73 96 Nasal Cannula 5.00 11/16/21 01:15 113 16 166/74 96 Nasal Cannula 5.00 11/16/21 01:00 102 14 164/76 96 Nasal Cannula 5.00 11/16/21 01:00 102 11/16/21 00:45 107 14 155/68 96 Nasal Cannula 5.00 11/16/21 00:33 101 27 154/74 98 Nasal Cannula 5.00 11/16/21 00:00 105 9 119/64 98 Nasal Cannula 5.00 11/15/21 23:45 37.0 107 14 129/65 98 Nasal Cannula 5.00 11/15/21 23:41 109 Height & Weight Height: 5'0.00" Weight: 389lbs. 0.4oz. 176.344106es; 82.23 BMI Method:Stated General Appearance: No Apparent Distress Respiratory: Lungs Clear Cardiovascular: Regular Rate, Rhythm, No Edema Capillary Refill: Less Than 3 Seconds Gastrointestinal: normal bowel sounds, non tender Neurologic/Psychiatric: Oriented x3, Other (sleepy) Assessment/Plan Assessment/Plan sumatptan 10 mg Critical Care: Critically Ill Patient RICHELLE BUSCH MD November 16, 2021 02:51
[2021-11-16] MEDS ORDERED: inSUlin (REGULAR) HUMAN 1 UNIT/0.01 ML (CHARGE PER UNIT) IV ONE (03:00)
[2021-11-16] MEDS ORDERED: SUMAtriptan 50 MG (IMITREX) TAB PO PRN ×2 (03:00→17:00)
[2021-11-16 03:30] VITALS: BP 125/68
[2021-11-16] MEDS ORDERED: RT-ALBUTEROL/IPRATROPIUM 3 ML (DUONEB) VIAL INH PRN (04:00)
[2021-11-16 04:44] LABS: HEMATOCRIT 38 % (35-52); HEMOGLOBIN 11.9 g/dL (11.5-16.0); MEAN CORPUSCULAR HEMOGLOBIN 27 pg (25-34); WHITE BLOOD COUNT 9.3 10^3/uL (4.3-11.0)
[2021-11-16 04:45] LABS: MEAN CORPUSCULAR HGB CONC 31 g/dL (32-36); MEAN CORPUSCULAR VOLUME 87 fL (80-99); MEAN PLATELET VOLUME 9.5 fL (9.0-12.2); PLATELET COUNT 283 10^3/uL (130-400)
[2021-11-16 05:09] LABS: POTASSIUM 3.4 MMOL/L (3.6-5.0)
[2021-11-16 05:10] LABS: CALCIUM 9.8 MG/DL (8.5-10.1); CREATININE SERUM 0.79 MG/DL (0.60-1.30); VALPROIC ACID 12.2 UG/ML (50.0-100.0)
[2021-11-16] MEDS ORDERED: POTASSIUM CL 10MEQ/50ML IVPB 50 ML IV SCH (06:00)
[2021-11-16] MEDS ORDERED: KCL 20 MEQ TAB (K-DUR) PO SCH (06:00)
[2021-11-16] MEDS ORDERED: MAGNESIUM 1 GM/100 ML IVPB 100 ML IV SCH (06:00)
[2021-11-16 06:11] LABS: PHOSPHORUS 4.1 MG/DL (2.3-4.7)
[2021-11-16] MEDS: POTASSIUM CL 10MEQ/50ML IVPB 50 ML IV SCH ×2 (06:12→07:24)
[2021-11-16 06:13] LABS: MAGNESIUM 1.5 MG/DL (1.6-2.4)
[2021-11-16] MEDS: MAGNESIUM 1 GM/100 ML IVPB 100 ML IV SCH ×2 (06:51→08:02)
[2021-11-16] MEDS ORDERED: PANTOPRAZOLE 40 MG (PROTONIX) TAB PO SCH (07:00)
[2021-11-16] MEDS: inSUlin ASPART (NovoLOG) 1 UNIT/0.01 ML (CHARGE PER UNIT) SC SCH ×5 (07:24→20:38)
[2021-11-16] MEDS: RT-ALBUTEROL/IPRATROPIUM 3 ML (DUONEB) VIAL INH SCH ×2 (07:44→20:48)
[2021-11-16] MEDS ORDERED: ACETAMINOPHEN 500 MG TAB (TYLENOL) PO PRN (08:00)
[2021-11-16 08:30] LABS: POTASSIUM 3.6 MMOL/L (3.6-5.0)
[2021-11-16 08:31] LABS: CALCIUM 9.7 MG/DL (8.5-10.1)
[2021-11-16 08:36] LABS: CREATININE SERUM 0.7 MG/DL (0.60-1.30)
--- NOTE | 2021-11-16 08:57 | History & Physical-Hospitalist ---
History of Present Illness HPI/Chief Complaint Pt is a 51yo female w/PMH HTN, HLD, IDDM, Obesity hypoventilation syndrome and MARIA ISABEL who presented to outside hospital due to not feeling well. She states she was in the hospital roughly 1.5 weeks ago and has been home for 1 week. She lost her insulin pump in that timeframe so has been without insulin for 1 week. She does not check her blood sugars at home. She has been having increased urinary frequency and even some incontinence in this time period. She also complains of a headache and wanting to eat. She was found to have very elevated blood sugars at the OSH and admitted here for HHS and insulin gtt. Source: patient Date Seen 11/16/21 Time Seen by a Provider: 08:00 Attending Physician Danis Rico MD PCP No,Local Physician Referring Physician Date of Admission November 15, 2021 at 23:33 Home Medications & Allergies Home Medications Reviewed patient Home Medication Reconciliation performed by pharmacy medication reconciliations diamond powder technician and/or nursing. Patients Allergies have been reviewed. Allergies Allergies Coded Allergies lemon (Unverified Allergy, Mild, 11/16/21) [place]ton (Unverified Allergy, Mild, 11/16/21) duloxetine (Verified Allergy, Unknown, 03/17/20) spironolactone (Verified Allergy, Unknown, 11/16/21) HAS STROKE LIKE SYMPTOMS PER FAMILY AT BEDSIDE tramadol (Verified Allergy, Unknown, 03/17/20) butorphanol (Unverified Adverse Reaction, Severe, 08/04/18) HALLUCINATIONS Penicillins (Unverified Adverse Reaction, Unknown, NAUSEA, 08/04/18) Past Fqjosyk-Teyewh-Ivkuqj Hx Patient Social History Marrital Status: Employed/Student: unemployed Tobacco Use?: Yes Smoking Status: Former Smoker Use of E-Cig and/or Vaping dev: No Substance use?: No Alcohol Use?: No Pt feels they are or have been: No Immunizations Up To Date Date of Influenza Vaccine: Apr 29, 2021 First/Initial COVID19 Vaccinat: AUGUST 2020 Second COVID19 Vaccination Mamadou: SEPTEMBER 2020 Tetanus Booster (TDap): Unknown PED Vaccines UTD: Yes Seasonal Allergies Seasonal Allergies: No Current Status Advance Directives: No Communicates: Verbally Primary Language: Nigerian Preferred Spoken Language: Nigerian Is interpretation needed?: No Implanted or Applied Medical D: None Past Medical History Surgeries: Cardiac, Section, Gallbladder, Orthopedic, Tubal Ligation Sleep Apnea Currently Using CPAP: No Currently Using BIPAP: No Coronary Artery Disease, Heart Attack, High Cholesterol, Hypertension, Irregular Heartbeat Headaches /Migraines, Neuropathy, Seizure Disorder, Stroke 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: Tubal Ligation UTI-Chronic Ulcer, Gall Bladder Disease Fibromyalgia, Scoliosis, Chronic Back Pain Diabetes, Insulin dep, Hypothyroidsim Anxiety, Depression Blood Disorders: No Hypertension Hypothyroidism Super super obesity Presumed obstructive sleep apnea Presumed obesity hypoventilation syndrome Family Medical History Reviewed Nursing Family Hx No Pertinent Family Hx SOCIAL HISTORY: -ETOH--OCCASIONAL USE -DRUGS--HX OF IV METHAMPHETAMINE USE -SMOKED 1/2 PPD FROM AGE 19 TO 23 PAST SURGICAL HISTORY: -BACK SURGERY FOR SCOLIOSIS AGE 15 -LEFT FOOT RECONSTRUCTION BECAUSE OF PROBLEM WITH ARCH OF FOOT - X 2 -EGD -CARDIAC ABLATION FOR SVT -CHOLECYSTECTOMY -BILATERAL TUBAL LIGATION ADDITIONAL PAST MEDICAL HISTORY: -CLAIMS SHE HAD A "STRESS HEART ATTACK" AT AGE 27--NO CARDIAC CATH, BUT HAD STRESS TEST AND ECHOCARDIOGRAM -SEIZURES DX AGE 33 -HAD POSSIBLE STROKE WITH ONE SEIZURE-HAD LEFT SIDE PARALYSIS FOR 2 WEEKS, COMPLETELY RESOLVED -PERIPHERAL NEUROPATHY -CHRONIC LEFT FOOT NUMBNESS SINCE LEFT FOOT SURGERY -IMPAIRED MOBILITY--HAS USED WALKER, WHEELCHAIR AND MOTORIZED WHEELCHAIR--NOW ESSENTALLY BED BOUND DUE TO SUPER MORBID OBESITY AND CHRONIC GENERALIZED PAIN AND LEG AND FOOT PAIN LONG HISTORY OF NON-COMPLIANCE IN ALL ASPECTS OF CARE Review of Systems Constitutional: No chills, No diaphoresis, No fever EENTM: no symptoms reported Respiratory: no symptoms reported Cardiovascular: no symptoms reported Gastrointestinal: no symptoms reported Genitourinary: see HPI Musculoskeletal: no symptoms reported Skin: no symptoms reported Psychiatric/Neurological: No Symptoms Reported Physical Exam Physical Exam Vital Signs Vital Signs - First Documented 11/15/21 11/15/21 11/16/21 23:41 23:45 03:30 Temp 37.0 Pulse 109 Resp 14 B/P (MAP) 129/65 Pulse Ox 98 O2 Delivery Nasal Cannula O2 Flow Rate 5.00 FiO2 40 Capillary Refill : Less Than 3 Seconds Height, Weight, BMI Height: 5'0.00" Weight: 389lbs. 0.4oz. 176.424426wj; 75.99 BMI Method:Stated General Appearance: No Apparent Distress, Chronically ill, Obese HEENT: PERRL/EOMI, Moist Mucous Membranes; No Scleral Icterus (L), No Scleral Icterus (R) Respiratory: Lungs Clear, No Accessory Muscle Use, No Respiratory Distress Cardiovascular: Regular Rate, Rhythm, No JVD, No Murmur Gastrointestinal: Normal Bowel Sounds, Non Tender, Soft Genital/Rectal: Other (catheter in place) Extremity: No Calf Tenderness, Pedal Edema, Swelling Neurologic/Psychiatric: Alert, Oriented x3, Normal Mood/Affect Skin: Normal Color, Warm/Dry Results Results/Procedures Labs Laboratory Tests 11/16/21 04:20 11/16/21 07:58 Patient resulted labs reviewed. Assessment/Plan Admission Diagnosis [facility] Admission Status: Inpatient Order (span 2 midnights) Reason for Inpatient Admission: see below Assessment and Plan [facility] IDDMI Noncompliant with insulin at home as she lost her pump after last hospital admission in [place] last week Currently on insulin gtt- will try to switch to basal/bolus insulin today A1c DM education Acute on chronic respiratory failure with hypoxia and hypercapnia Obesity hypoventilation syndrome Obstructive sleep apnea Super super obesity CHF HTN IDDM Hypothyroidism No acute needs, continue home meds DVT prophylaxis: EBONIE Patel MD November 16, 2021 08:57
[2021-11-16] MEDS: HYDROcodone/APAP 5 MG/325 MG (LORTAB) TAB PO PRN (10:35)
[2021-11-16] MEDS ORDERED: POTA-179 PO (14:36)
[2021-11-16] MEDS ORDERED: IPRA3AMP31 IH (14:36)
[2021-11-16] MEDS ORDERED: ONDA-106 PO (14:36)
[2021-11-16] MEDS ORDERED: TORS20TA3 PO (14:36)
[2021-11-16] MEDS ORDERED: LACT1CAP65 PO (14:36)
[2021-11-16] MEDS ORDERED: CEFT2VIA12 IV (16:06)
[2021-11-16 16:14] LABS: POTASSIUM 3.8 MMOL/L (3.6-5.0)
[2021-11-16 16:15] LABS: CALCIUM 9.4 MG/DL (8.5-10.1)
[2021-11-16] MEDS ORDERED: RT-ALBUTEROL/IPRATROPIUM 3 ML (DUONEB) VIAL IH PRN (16:15)
[2021-11-16] MEDS ORDERED: MENTHOL/ZINC OXIDE (CALMOSEPTINE) 113 GM TUBE TOP PRN (16:15)
[2021-11-16] MEDS ORDERED: DICLOFENAC 1% GEL 100 GM (VOLTAREN) TUBE TOP PRN (16:15)
[2021-11-16 16:20] LABS: CREATININE SERUM 0.71 MG/DL (0.60-1.30)
[2021-11-16] MEDS ORDERED: ONDANSETRON 4 MG (ZOFRAN) ORAL DISSOLVE TAB PO PRN (17:00)
[2021-11-16] MEDS ORDERED: BACLOFEN 10 MG (LIORESAL) TAB PO PRN (17:00)
[2021-11-16] MEDS ORDERED: cefTRIAXone 2,000 MG/NS 50 ML IVPB IV SCH ×2 (18:00)
[2021-11-16] MEDS: TORSEMIDE 20 MG (DEMADEX) TAB PO SCH (20:36)
[2021-11-16] MEDS: DIVALPROEX 500 MG DELAYED RELEASE (DEPAKOTE) TAB PO SCH (20:36)
[2021-11-16] MEDS: PREGABALIN 100 MG (LYRICA) CAPSULE PO SCH (20:37)
[2021-11-16] MEDS: LACTOBACILLUS ACIDOPHILUS (PROBIOTIC) CAPSULE PO SCH (20:37)
[2021-11-16] MEDS: meTOprolol TARTRATE 50 MG (LOPRESSOR) TAB PO SCH (20:37)
[2021-11-16] MEDS ORDERED: PRAMIPEXOLE 0.5 MG TAB (MIRAPEX) PO SCH (21:00)
[2021-11-16 22:13] VITALS: BP 111/74
[2021-11-17] MEDS: HYDROcodone/APAP 5 MG/325 MG (LORTAB) TAB PO PRN ×2 (00:47→07:28)
[2021-11-17 00:59] VITALS: BP 114/66
[2021-11-17 03:40] VITALS: BP 155/86
[2021-11-17 05:08] LABS: BASOPHILS % (AUTO) 0 % (0-10); EOSINOPHILS # (AUTO) 0.9 10^3/uL (0.0-0.3); EOSINOPHILS % (AUTO) 9 % (0-10); HEMATOCRIT 38 % (35-52); HEMOGLOBIN 11.6 g/dL (11.5-16.0); LYMPHOCYTES # (AUTO) 2.2 10^3/uL (1.0-4.0); LYMPHOCYTES % (AUTO) 21 % (12-44); MEAN CORPUSCULAR HEMOGLOBIN 27 pg (25-34); MEAN CORPUSCULAR HGB CONC 30 g/dL (32-36); MEAN CORPUSCULAR VOLUME 89 fL (80-99); MEAN PLATELET VOLUME 9.4 fL (9.0-12.2); MONOCYTES # (AUTO) 0.7 10^3/uL (0.0-1.0); MONOCYTES % (AUTO) 7 % (0-12); NEUTROPHILS # (AUTO) 6.7 10^3/uL (1.8-7.8); NEUTROPHILS % (AUTO) 63 % (42-75); PLATELET COUNT 287 10^3/uL (130-400); WHITE BLOOD COUNT 10.5 10^3/uL (4.3-11.0)
[2021-11-17 05:33] LABS: ALBUMIN 3.7 GM/DL (3.2-4.5)
[2021-11-17 05:34] LABS: POTASSIUM 3.9 MMOL/L (3.6-5.0)
[2021-11-17 05:35] LABS: CALCIUM 9.2 MG/DL (8.5-10.1)
[2021-11-17 05:36] LABS: TOTAL PROTEIN 6.9 GM/DL (6.4-8.2)
[2021-11-17 05:38] LABS: BILIRUBIN,TOTAL 0.5 MG/DL (0.1-1.0)
[2021-11-17 05:40] LABS: CREATININE SERUM 0.78 MG/DL (0.60-1.30)
[2021-11-17 05:42] LABS: MAGNESIUM 1.4 MG/DL (1.6-2.4)
[2021-11-17] MEDS: inSUlin ASPART (NovoLOG) 1 UNIT/0.01 ML (CHARGE PER UNIT) SC SCH (05:42)
[2021-11-17] MEDS ORDERED: TROSPIUM 20 MG (SANCTURA) TAB PO SCH (06:00)
[2021-11-17] MEDS ORDERED: LEVOTHYROXINE 100 MCG (LEVOTHROID) TAB PO SCH (06:30)
[2021-11-17] MEDS ORDERED: LEVOTHYROXINE 25 MCG (LEVOTHROID) TAB PO SCH (06:30)
[2021-11-17] MEDS: RT-ALBUTEROL/IPRATROPIUM 3 ML (DUONEB) VIAL INH SCH (07:21)
[2021-11-17] MEDS ORDERED: MAGNESIUM 1 GM/100 ML IVPB 100 ML IV SCH (07:45)
[2021-11-17 08:01] VITALS: BP 176/79
--- NOTE | 2021-11-17 08:38 | Discharge Summary ---
Diagnosis/Chief Complaint Date of Admission November 15, 2021 at 23:33 Date of Discharge Discharge Date: November 17, 2021 Admission Diagnosis [facility] Primary Care No,Local Physician Discharge Summary Discharge Physical Exam Allergies: Coded Allergies: lemon (Unverified Allergy, Mild, 11/16/21) [place] (Unverified Allergy, Mild, 11/16/21) duloxetine (Verified Allergy, Unknown, 03/17/20) spironolactone (Verified Allergy, Unknown, 11/16/21) HAS STROKE LIKE SYMPTOMS PER FAMILY AT BEDSIDE tramadol (Verified Allergy, Unknown, 03/17/20) butorphanol (Unverified Adverse Reaction, Severe, 08/04/18) HALLUCINATIONS Penicillins (Unverified Adverse Reaction, Unknown, NAUSEA, 08/04/18) Vitals & I&Os Vital Signs Date Time Temp Pulse Resp B/P (MAP) Pulse Ox O2 Delivery O2 Flow Rate FiO2 11/17/21 08:01 36.2 96 18 176/79 (111) 96 Nasal Cannula 7.00 11/16/21 03:30 40 General Appearance: No Apparent Distress, Chronically ill, Obese Neurologic/Psychiatric: Alert, Oriented x3 Hospital Course Patient was admitted to the hospital secondary to [facility]. She had been admitted to an outside hospital a week and a half ago and has lost her insulin pump since discharge. On arrival she had very elevated blood sugars and was admitted for an insulin drip. She did well and was able to be transitioned over to basal bolus insulin. Her was able to locate her insulin pump and she was discharged home in stable and improved condition to follow-up with her primary care doctor Dr. Hanna. Labs (last 24 hrs) Microbiology 11/15/21 MRSA Screen - Final, Complete MRSA not isolated Patient resulted labs reviewed. Pending Labs Discussion & Recommendations Discharge Planning: >30 minutes discharge planning Discharge Home Medications: Active Scripts Active Insulin Aspart 100 Unit/1 Ml Vial 1 Vial SQ UD USES PER PUMP Reported Ceftriaxone (Ceftriaxone Sodium) 2 Gram Soln 2 Gm IV DAILY STARTED ON 11-11-2021 X 12 DAYS (LAST DOSE SCHEDULED FOR 11-22-2021) Iprat-Albut 0.5-3(2.5) mg/3 ml (Ipratropium/Albuterol Sulfate) 0.5 Mg-3 Mg (2.5 Mg Base)/3 Ml Ampul.neb 3 Ml IH TID PRN Potassium Chloride 20 Meq Tab.er.prt 20 Meq PO DAILY Torsemide 20 Mg Tablet 40 Mg PO BID TAKES 2 (20MG) TABS Ondansetron HCl 8 Mg Tablet 8 Mg PO Q8H PRN Culturelle (Lactobacillus Rhamnosus GG) 15 Billion Cell Cap.sprink 1 Ea PO BID Divalproex Sodium 500 Mg Tablet.dr 500 Mg PO BID Baclofen 20 Mg Tablet 20 Mg PO BID W/FOOD PRN Calmoseptine Ointment (Menthol/Lanolin/Calamine/Znox) 71 Gm Oint 1 Applic TOP QID PRN Solifenacin Succinate 5 Mg Tablet 5 Mg PO DAILY Diclofenac Sodium 100 Gm Gel..gram. 2 Gm TOP TID PRN Levothyroxine Sodium 25 Mcg Tablet 25 Mcg PO DAILY TAKES 25MCG +200MCG TOGETHER Pregabalin 200 Mg Capsule 200 Mg PO BID Aspirin EC (Aspirin) 81 Mg Tablet.dr 81 Mg PO DAILY Pantoprazole Sodium 40 Mg Tablet.dr 40 Mg PO DAILY Losartan Potassium 100 Mg Tablet 100 Mg PO DAILY Pramipexole Dihydrochloride (Pramipexole Di-HCl) 1 Mg Tablet 1 Mg PO HS Levothyroxine Sodium 200 Mcg Tablet 200 Mcg PO DAILY TAKES 25MCG +200MCG TOGETHER Sumatriptan Succinate 100 Mg Tablet 100 Mg PO UD PRN Metoprolol Tartrate 100 Mg Tablet 100 Mg PO BID Atorvastatin Calcium 40 Mg Tablet 40 Mg PO HS Instructions to patient/family Please see electronic discharge instructions given to patient. EBONIE MCCLENDON MD November 17, 2021 08:38
--- NOTE | 2021-11-17 08:40 | Pulmonary Progress Note ---
Subjective Date Seen by a Provider: November 17, 2021 Time Seen by a Provider: 08:34 Subjective/Events-last exam She says the she is breathing better. did not use bipap lastnight. she thinks that she is going home today. blood sugars improving. she does have biapap at home no wheezing per rn. Sepsis Event Evaluation Height, Weight, BMI Height: 5'0.00" Weight: 389lbs. 0.4oz. [id number]; 73.88 BMI Method:Stated Exam Exam Patient acknowledged, consented, and participated in this virtual visit which was conducted using real time audio/video Vital Signs Date Time Temp Pulse Resp B/P (MAP) Pulse Ox O2 Delivery O2 Flow Rate FiO2 11/17/21 08:01 36.2 96 18 176/79 (111) 96 Nasal Cannula 7.00 11/17/21 07:21 96 Nasal Cannula 7.00 11/17/21 03:40 36.8 88 18 155/86 (109) 95 Nasal Cannula 7.00 11/17/21 00:59 36.1 91 18 114/66 (82) 94 Nasal Cannula 7.00 11/16/21 22:13 35.1 87 18 111/74 (86) 95 Nasal Cannula 7.00 11/16/21 21:00 92 Nasal Cannula 6.00 11/16/21 21:00 101 14 141/76 94 Nasal Cannula 6.00 11/16/21 20:49 97 Nasal Cannula 5.00 11/16/21 20:00 105 15 142/77 96 Nasal Cannula 6.00 11/16/21 19:28 36.1 11/16/21 19:00 105 12 148/78 97 Nasal Cannula 6.00 11/16/21 19:00 105 11/16/21 17:00 100 11 134/64 91 Nasal Cannula 6.00 11/16/21 16:09 105 13 154/81 95 Nasal Cannula 6.00 11/16/21 16:00 Nasal Cannula 5.00 11/16/21 15:58 36.0 11/16/21 15:00 111 10 167/92 96 Nasal Cannula 6.00 11/16/21 14:00 111 10 159/88 96 Nasal Cannula 6.00 11/16/21 13:00 116 6 189/87 91 Nasal Cannula 6.00 11/16/21 13:00 107 11/16/21 12:45 115 10 121/66 89 Nasal Cannula 6.00 11/16/21 12:30 113 16 102/91 89 Nasal Cannula 6.00 11/16/21 12:15 107 17 164/85 91 Nasal Cannula 6.00 11/16/21 12:00 111 21 151/86 91 Nasal Cannula 6.00 11/16/21 12:00 Nasal Cannula 5.00 11/16/21 11:45 106 11 152/86 94 Nasal Cannula 6.00 11/16/21 11:43 36.1 11/16/21 11:30 101 15 136/83 93 Nasal Cannula 6.00 11/16/21 11:15 101 11 167/99 95 Nasal Cannula 6.00 11/16/21 11:00 106 13 167/89 92 Nasal Cannula 6.00 11/16/21 10:45 99 8 132/80 92 Nasal Cannula 6.00 11/16/21 10:00 92 11 135/67 94 Nasal Cannula 6.00 I & O 11/17/21 07:00 Intake Total 1225 ml Output Total 1275 ml Balance -50 ml Height & Weight Height: 5'0.00" Weight: 389lbs. 0.4oz. [id number]; 73.88 BMI Method:Stated General Appearance: No Apparent Distress, Chronically ill, Obese HEENT: PERRL/EOMI, Moist Mucous Membranes; No Scleral Icterus (L), No Scleral Icterus (R) Respiratory: Lungs Clear, No Accessory Muscle Use, No Respiratory Distress Cardiovascular: Regular Rate, Rhythm, No JVD, No Murmur Capillary Refill: Less Than 3 Seconds Gastrointestinal: normal bowel sounds, non tender Extremity: No Calf Tenderness, Pedal Edema, Swelling Neurologic/Psychiatric: Alert, Oriented x3, Normal Mood/Affect Skin: Normal Color, Warm/Dry Other comments pe per rn Results Lab Laboratory Tests 11/16/21 04:20 11/16/21 07:58 11/16/21 15:42 11/17/21 05:02 Assessment/Plan Assessment/Plan 1. HHS improving. 2. Super mobid obsity. 3.. acute and chr.respiratory failure improved. 4. [facility] AND [facility]. PT HAS BIPAP at home. Plan. Home when ok with Primary care Critical Care: Critically Ill Patient Time spent with patient (mins): 15 VIVIANE APPIAH MD November 17, 2021 08:40
[2021-11-17] MEDS ORDERED: cefTRIAXone 2,000 MG/NS 50 ML IVPB IV SCH ×2 (09:00)
[2021-11-17] MEDS ORDERED: ASPIRIN E.C. 81 MG (ECOTRIN) TAB PO SCH (09:00)
[2021-11-17] MEDS: LACTOBACILLUS ACIDOPHILUS (PROBIOTIC) CAPSULE PO SCH (09:00)
[2021-11-17] MEDS ORDERED: LOSARTAN 100 MG (COZAAR) TABLET PO SCH (09:00)
[2021-11-17] MEDS ORDERED: KCL 20 MEQ TAB (K-DUR) PO SCH (09:00)
[2021-11-17] MEDS ORDERED: NON-FORMULARY MEDICATION 1 EA EA (Ceftriaxone Sodium (Ceftriaxone) 2 GM) IV SCH (09:00)
[2021-11-17] MEDS ORDERED: PANTOPRAZOLE 40 MG (PROTONIX) TAB PO SCH (09:00)
[2021-11-17] MEDS: DIVALPROEX 500 MG DELAYED RELEASE (DEPAKOTE) TAB PO SCH (09:00)
[2021-11-17] MEDS: PREGABALIN 100 MG (LYRICA) CAPSULE PO SCH (09:00)
[2021-11-17] MEDS: meTOprolol TARTRATE 50 MG (LOPRESSOR) TAB PO SCH (09:00)
[2021-11-17] MEDS: TORSEMIDE 20 MG (DEMADEX) TAB PO SCH (09:10)
--- NOTE | 2021-11-17 09:48 | D/C HH Face to Face Order ---
D/C Face to Face Orders Instructions for Patient [facility], Patient Instructions/FollowUp: Please continue take your medications as written. Please follow-up with your primary care doctor to follow-up this hospital stay. Physician to follow Patient: Dr Hanna Discharge Diet for Home: ADA Diet Patient Data-Allergies,Ht & Wt Patient Allergies: Coded Allergies: lemon (Unverified Allergy, Mild, 11/16/21) [place] (Unverified Allergy, Mild, 11/16/21) duloxetine (Verified Allergy, Unknown, 03/17/20) spironolactone (Verified Allergy, Unknown, 11/16/21) HAS STROKE LIKE SYMPTOMS PER FAMILY AT BEDSIDE tramadol (Verified Allergy, Unknown, 03/17/20) butorphanol (Unverified Adverse Reaction, Severe, 08/04/18) HALLUCINATIONS Penicillins (Unverified Adverse Reaction, Unknown, NAUSEA, 08/04/18) Height (Feet): 5 Height (Inches): 0.00 Weight (Pounds): 389 Weight (Ounces): 0.4 Home Health Need/Face to Face Date of Face to Face: November 17, 2021 Clinical Findings: Generalized weakness and fatigue I have seen Pt [id number]: Yes Discharged To: Home Diagnosis/Conditions: IDDMI, Obesity hypoventilation syndrome Patient is Homebound due to: Jana fall risk due to instabilty, Shortness of breath/distress Homebound Status Due to the above stated illness, injury or surgical procedure (medical condition or diagnosis) and associated clinical findings, the patient is homebound because of his/her inability to leave home except with aid of a supportive device and/or person AND leaving the home requires a considerable and taxing effort or is medically contraindicated. Pt req the following assistanc: Aid of another person, Wheelchair Home Health Nursing Orders Home Health Services Order: Nursing Services, Pin Sticker-Evaluate & Treat, Physical Therapy-Evaluate & Treat Home Health Infusion Therapy Line Start Date: November 15, 2021 Therapy Orders Therapy Orders: OT (must have SN or PT order), Physical Therapy Therapy Specific Orders: Eval assistive deivces, Teach enviro modifications/safety, Gait training, Increase strength/endurance Certify Stmt I certify that this patient is under my care and that I, a nurse practitioner or a physician; a licensed investment sales assistant working with me, had a face to face encounter that - meets the physician face to face encounter requirements with this patient as dated. EBONIE MCCLENDON MD November 17, 2021 09:48
[2021-11-17] MEDS ORDERED: INSU100V42 SQ (09:49)
== END 2021-11-17 10:43 | disposition home health service (06) | DRG 637 ==
LOC: ICU 23:33 → 4TH 11-16 22:56
PROVIDERS: ADMIT Internal Medicine; ATTEND Internal Medicine
DX: E11.00 Type 2 diabetes mellitus with hyperosmolarity without nonketotic hyperglycemic-hyperosmolar coma (NKHHC) (principal); J96.21 Acute and chronic respiratory failure with hypoxia; J96.22 Acute and chronic respiratory failure with hypercapnia; Z68.45 Body mass index [BMI] 70 or greater, adult; E66.2 Morbid (severe) obesity with alveolar hypoventilation; I50.9 Heart failure, unspecified; I11.0 Hypertensive heart disease with heart failure; E03.9 Hypothyroidism, unspecified; Z87.891 Personal history of nicotine dependence; I25.10 Atherosclerotic heart disease of native coronary artery without angina pectoris; I25.2 Old myocardial infarction; E78.00 Pure hypercholesterolemia, unspecified; G43.909 Migraine, unspecified, not intractable, without status migrainosus; M79.7 Fibromyalgia; M41.9 Scoliosis, unspecified; G89.29 Other chronic pain; M54.9 Dorsalgia, unspecified; Z79.4 Long term (current) use of insulin; F41.9 Anxiety disorder, unspecified; F32.A Depression, unspecified; Z79.82 Long term (current) use of aspirin; Z79.899 Other long term (current) drug therapy
CPT/HCPCS: 36415; 80048; 80053; 80164; 82947; 83735; 84100; 85025; 85027; 87081; 94640; G0378

== ENCOUNTER 2021-11-30 23:55 | Emergency (ER) | payer MEDICAID ==
[~2021-11-30] VITALS: Ht 152.4 cm; Wt 171.6 kg
[~2021-11-30 23:55] MED LIST changes: +CEFT2VIA12 IV; -DICL100G27 TP; +DICL100G32 TP; +LACT1CAP65 PO; +ONDA-106 PO; +POTA-179 PO
[2021-12-01 01:35] VITALS: BP 150/92
--- NOTE | 2021-12-01 02:09 | ED General ---
General Stated Complaint: AMS Source of Information: Patient Exam Limitations: No Limitations History of Present Illness Date Seen by Provider: Dec 01, 2021 Time Seen by Provider: 00:00 Initial Comments Patient to ER by [facility] ambulance with chief complaint of 2 days of altered mental status. They state her will be shortly behind. The p atient states she had a Alcantar catheter placed a couple weeks ago because she was constantly wetting on herself and it has continued to put out cloudy, yellow urine. She has not had any fevers chills cough shortness of air. She is only having her normal fibromyalgia pain. She has a dressing on her left foot where she stubbed and tore the bottom of her fourth toe. She says she has been checking her blood sugars recently and they have been normal. She says she has been seeing people who are not there. She is not having nausea, vomiting or diarrhea. Allergies and Home Medications Allergies Coded Allergies: lemon (Unverified Allergy, Mild, 11/16/21) [place] (Unverified Allergy, Mild, 11/16/21) duloxetine (Verified Allergy, Unknown, 03/17/20) spironolactone (Verified Allergy, Unknown, 11/16/21) HAS STROKE LIKE SYMPTOMS PER FAMILY AT BEDSIDE tramadol (Verified Allergy, Unknown, 03/17/20) butorphanol (Unverified Adverse Reaction, Severe, 08/04/18) HALLUCINATIONS Penicillins (Unverified Adverse Reaction, Unknown, NAUSEA, 08/04/18) Patient Home Medication List Home Medication List Reviewed: Yes Aspirin (Aspirin EC) 81 Mg Tablet.dr, 81 MG PO DAILY, (Reported) Entered as Reported by: SAMEER BUTTS on 11/19/20 1054 Atorvastatin Calcium (Atorvastatin Calcium) 40 Mg Tablet, 40 MG PO HS, (Reported) Entered as Reported by: LUIS MATHIS on 08/04/18 1734 Baclofen (Baclofen) 20 Mg Tablet, 20 MG PO BID W/FOOD PRN for MUSCLE SPASMS, (Reported) Entered as Reported by: SAMEER BUTTS on 09/19/21 1409 Ceftriaxone Sodium (Ceftriaxone) 2 Gram Soln, 2 GM IV DAILY, (Reported) Entered as Reported by: SAMEER BUTTS on 11/16/21 1606 Diclofenac Sodium (Diclofenac Sodium) 100 Gm Gel..gram., 2 GM TOP TID PRN for PAIN-BREAKTHROUGH, (Reported) Entered as Reported by: SAMEER BUTTS on 09/19/21 1409 Divalproex Sodium (Divalproex Sodium) 500 Mg Tablet.dr, 500 MG PO BID, (Reported) Entered as Reported by: SAMEER BUTTS on 09/19/21 1409 Insulin Aspart (Insulin Aspart) 100 Unit/1 Ml Vial, 1 VIAL SQ UD Prescribed by: EBONIE MCCLENDON on 11/17/21 0949 Ipratropium/Albuterol Sulfate (Iprat-Albut 0.5-3(2.5) mg/3 ml) 0.5 Mg-3 Mg (2.5 Mg Base)/3 Ml Ampul.neb, 3 ML IH TID PRN for SHORTNESS OF BREATH, (Reported) Entered as Reported by: SAMEER BUTTS on 11/16/21 1436 Lactobacillus Rhamnosus GG (Culturelle) 15 Billion Cell Cap.sprink, 1 EA PO BID, (Reported) Entered as Reported by: SAMEER BUTTS on 11/16/21 1436 Levothyroxine Sodium (Levothyroxine Sodium) 200 Mcg Tablet, 200 MCG PO DAILY, (Reported) Entered as Reported by: SAMEER BUTTS on 10/14/20 1536 Levothyroxine Sodium (Levothyroxine Sodium) 25 Mcg Tablet, 25 MCG PO DAILY, (Reported) Entered as Reported by: SAMEER BUTTS on 09/19/21 1409 Losartan Potassium (Losartan Potassium) 100 Mg Tablet, 100 MG PO DAILY, (Reported) Entered as Reported by: SAMEER BUTTS on 10/14/20 1536 Menthol/Lanolin/Calamine/Znox (Calmoseptine Ointment) 71 Gm Oint, 1 APPLIC TOP QID PRN for WOUND CARE, (Reported) Entered as Reported by: SAMEER BUTTS on 09/19/21 1409 Metoprolol Tartrate (Metoprolol Tartrate) 100 Mg Tablet, 100 MG PO BID, (Reported) Entered as Reported by: LUIS MATHIS on 08/04/18 1734 Ondansetron HCl (Ondansetron HCl) 8 Mg Tablet, 8 MG PO Q8H PRN for NAUSEA/VOMITING-1ST LINE, (Reported) Entered as Reported by: SAMEER BUTTS on 11/16/21 1436 Pantoprazole Sodium (Pantoprazole Sodium) 40 Mg Tablet.dr, 40 MG PO DAILY, (Reported) Entered as Reported by: SAMEER BUTTS on 10/14/20 1536 Potassium Chloride (Potassium Chloride) 20 Meq Tab.er.prt, 20 MEQ PO DAILY, (Reported) Entered as Reported by: SAMEER BUTTS on 11/16/21 1436 Pramipexole Di-HCl (Pramipexole Dihydrochloride) 1 Mg Tablet, 1 MG PO HS, (Reported) Entered as Reported by: SAMEER BUTTS on 10/14/20 1536 Pregabalin (Pregabalin) 200 Mg Capsule, 200 MG PO BID, (Reported) Entered as Reported by: SAMEER BUTTS on 11/19/20 1054 Solifenacin Succinate (Solifenacin Succinate) 5 Mg Tablet, 5 MG PO DAILY, (Reported) Entered as Reported by: SAMEER BUTTS on 09/19/21 1409 Sumatriptan Succinate (Sumatriptan Succinate) 100 Mg Tablet, 100 MG PO UD PRN for MIGRAINE, (Reported) Entered as Reported by: LUIS MATHIS on 08/04/18 1734 Torsemide (Torsemide) 20 Mg Tablet, 40 MG PO BID, (Reported) Entered as Reported by: SAMEER BUTTS on 11/16/21 1436 Review of Systems Review of Systems Constitutional: No chills, No diaphoresis, No fever; malaise EENTM: No ear discharge, No hearing loss Respiratory: No cough, No short of breath Cardiovascular: No edema, No palpitations Gastrointestinal: No abdominal pain, No constipation Genitourinary: No discharge, No dysuria Musculoskeletal: No back pain, No joint pain All Other Systems Reviewed Negative Unless Noted: Yes Past Jcrwenj-Dybbbf-Hgggrw Hx Patient Social History Tobacco Use?: No Use of E-Cig and/or Vaping dev: No Substance use?: No Immunizations Up To Date Tetanus Booster (TDap): Unknown PED Vaccines UTD: Yes First/Initial COVID19 Vaccinat: AUGUST 2020 Second COVID19 Vaccination Mamadou: SEPTEMBER 2020 Third COVID19 Vaccination Date: AUGUST 2020 Seasonal Allergies Seasonal Allergies: No Past Medical History Surgery/Hospitalization HX: COPD, CHF Surgeries: Yes Cardiac, Section, Gallbladder, Orthopedic, Tubal Ligation Respiratory: Yes (RESTRICTIVE LUNG DZ;LEFT CHEST DEFORMITY;CHF;CHRONIC RESP FAILURE-3L/NC) Sleep Apnea Currently Using CPAP: No Currently Using BIPAP: No Cardiac: Yes (CHF; CARDIAC ABLATION FOR SVT ) Coronary Artery Disease, Heart Attack, High Cholesterol, Hypertension, Irregular Heartbeat Neurological: Yes Headaches /Migraines, Neuropathy, Seizure Disorder, Stroke Reproductive Disorders: No [employer] History: Tubal Ligation Genitourinary: Yes UTI-Chronic Gastrointestinal: Yes (Reports celiac disease) Ulcer, Gall Bladder Disease Musculoskeletal: Yes (BACK SURGERY FOR SCOLIOSIS; LEFT FOOT SURGERY) Fibromyalgia, Scoliosis, Chronic Back Pain Endocrine: Yes (SUPER MORBID OBESITY--> 500LBS) Diabetes, Insulin dep, Hypothyroidsim HEENT: Yes (EDENTULOUS) Cancer: No Psychosocial: Yes Anxiety, Depression Integumentary: No Blood Disorders: No Family Medical History No Pertinent Family Hx SOCIAL HISTORY: -ETOH--OCCASIONAL USE -DRUGS--HX OF IV METHAMPHETAMINE USE -SMOKED 1/2 PPD FROM AGE 19 TO 23 PAST SURGICAL HISTORY: -BACK SURGERY FOR SCOLIOSIS AGE 15 -LEFT FOOT RECONSTRUCTION BECAUSE OF PROBLEM WITH ARCH OF FOOT - X 2 -EGD -CARDIAC ABLATION FOR SVT -CHOLECYSTECTOMY -BILATERAL TUBAL LIGATION ADDITIONAL PAST MEDICAL HISTORY: -CLAIMS SHE HAD A "STRESS HEART ATTACK" AT AGE 27--NO CARDIAC CATH, BUT HAD STRESS TEST AND ECHOCARDIOGRAM -SEIZURES DX AGE 33 -HAD POSSIBLE STROKE WITH ONE SEIZURE-HAD LEFT SIDE PARALYSIS FOR 2 WEEKS, COMPLETELY RESOLVED -PERIPHERAL NEUROPATHY -CHRONIC LEFT FOOT NUMBNESS SINCE LEFT FOOT SURGERY -IMPAIRED MOBILITY--HAS USED WALKER, WHEELCHAIR AND MOTORIZED WHEELCHAIR--NOW ESSENTALLY BED BOUND DUE TO SUPER MORBID OBESITY AND CHRONIC GENERALIZED PAIN AND LEG AND FOOT PAIN LONG HISTORY OF NON-COMPLIANCE IN ALL ASPECTS OF CARE Physical Exam Vital Signs Vital Signs - First Documented 12/01/21 00:00 Temp 37.1 Pulse 62 Resp 18 B/P (MAP) 114/67 (83) Pulse Ox 95 O2 Delivery Nasal Cannula O2 Flow Rate 3.00 Capillary Refill : Height, Weight, BMI Height: 5'0.00" Weight: 389lbs. 0.4oz. 176.349190tm; 73.88 BMI Method:Stated General Appearance: No Apparent Distress, WD/WN Eyes: Bilateral Eye Normal Inspection, Bilateral Eye PERRL, Bilateral Eye EOMI HEENT: PERRL/EOMI, TMs Normal, Normal ENT Inspection, Pharynx Normal; No Moist Mucous Membranes Neck: Full Range of Motion, Normal Inspection, Non Tender Respiratory: Lungs Clear, Normal Breath Sounds, No Accessory Muscle Use, No Respiratory Distress Cardiovascular: Regular Rate, Rhythm, No Edema, Normal Peripheral Pulses Gastrointestinal: Normal Bowel Sounds, Non Tender, Soft Extremity: Normal Capillary Refill, Normal Inspection, No Pedal Edema Neurologic/Psychiatric: Alert, Oriented x3, No Motor/Sensory Deficits, Normal Mood/Affect Skin: Normal Color, Warm/Dry, Other (Healing avulsion laceration third toe on left foot.) Progress/Results/Core Measures Suspected Sepsis SIRS Temperature: Pulse: Respiratory Rate: Laboratory Tests 12/01/21 00:20: White Blood Count 7.4 Blood Pressure / Mean: Laboratory Tests 12/01/21 00:20: Creatinine 2.02H, Platelet Count 333, Total Bilirubin 0.3 Results/Orders Lab Results Laboratory Tests Test 11/30/21 23:55 12/01/21 00:12 12/01/21 00:20 Range/Units Lab Scanned Report LAB Reports [id number] Urine Color YELLOW Urine Clarity SL CLOUDY Urine pH 5.5 5-9 Urine Specific [place] 1.020 1.016-1.022 Urine Protein 1+ H NEGATIVE Urine Glucose (UA) NEGATIVE NEGATIVE Urine Ketones NEGATIVE NEGATIVE Urine Nitrite NEGATIVE NEGATIVE Urine Bilirubin NEGATIVE NEGATIVE Urine Urobilinogen 0.2 < = 1.0 MG/DL Urine Leukocyte Esterase TRACE H NEGATIVE Urine RBC (Auto) 1+ H NEGATIVE Urine RBC 5-10 H /HPF Urine WBC 0-2 /HPF Urine Squamous Epithelial Cells 0-2 /HPF Urine Crystals NONE /LPF Urine Bacteria TRACE /HPF Urine Casts PRESENT /LPF Urine Hyaline Casts 0-2 H /LPF Urine Mucus NEGATIVE /LPF Urine Yeast MODERATE H /HPF Urine Culture Indicated NO Urine Opiates Screen NEGATIVE NEGATIVE Urine Oxycodone Screen NEGATIVE NEGATIVE Urine Methadone Screen NEGATIVE NEGATIVE Urine Propoxyphene Screen NEGATIVE NEGATIVE Urine Barbiturates Screen NEGATIVE NEGATIVE Ur Tricyclic Antidepressants Screen NEGATIVE NEGATIVE Urine Phencyclidine Screen NEGATIVE NEGATIVE Urine Amphetamines Screen NEGATIVE NEGATIVE Urine Methamphetamines Screen NEGATIVE NEGATIVE Urine Benzodiazepines Screen NEGATIVE NEGATIVE Urine Cocaine Screen NEGATIVE NEGATIVE Urine Cannabinoids Screen NEGATIVE NEGATIVE White Blood Count 7.4 4.3-11.0 10^3/uL Red Blood Count 3.55 L 3.80-5.11 10^6/uL Hemoglobin 9.9 L 11.5-16.0 g/dL Hematocrit 34 L 35-52 % Mean Corpuscular Volume 94 80-99 fL Mean Corpuscular Hemoglobin 28 25-34 pg Mean Corpuscular Hemoglobin Concent 30 L 32-36 g/dL Red Cell Distribution Width 18.7 H 10.0-14.5 % Platelet Count 333 130-400 10^3/uL Mean Platelet Volume 9.6 9.0-12.2 fL Immature Granulocyte % (Auto) 0 % Neutrophils (%) (Auto) 53 42-75 % Lymphocytes (%) (Auto) 28 12-44 % Monocytes (%) (Auto) 14 H 0-12 % Eosinophils (%) (Auto) 5 0-10 % Basophils (%) (Auto) 0 0-10 % Neutrophils # (Auto) 3.9 1.8-7.8 10^3/uL Lymphocytes # (Auto) 2.1 1.0-4.0 10^3/uL Monocytes # (Auto) 1.0 0.0-1.0 10^3/uL Eosinophils # (Auto) 0.4 H 0.0-0.3 10^3/uL Basophils # (Auto) 0.0 0.0-0.1 10^3/uL Immature Granulocyte # (Auto) 0.0 0.0-0.1 10^3/uL Percent Immature Platelet Fraction 2.7 0.0-7.6 % Sodium Level 144 135-145 MMOL/L Potassium Level 4.9 3.6-5.0 MMOL/L Chloride Level 94 L 98-107 MMOL/L Carbon Dioxide Level 36 H 21-32 MMOL/L Anion Gap 14 5-14 MMOL/L Blood Urea Nitrogen 35 H 7-18 MG/DL Creatinine 2.02 H 0.60-1.30 MG/DL Estimat Glomerular Filtration Rate 30 BUN/Creatinine Ratio 17 Glucose Level 96 70-105 MG/DL Calcium Level 9.2 8.5-10.1 MG/DL Corrected Calcium 9.7 8.5-10.1 MG/DL Total Bilirubin 0.3 0.1-1.0 MG/DL Aspartate Amino Transf (AST/SGOT) 15 5-34 U/L Alanine Aminotransferase (ALT/SGPT) 16 0-55 U/L Alkaline Phosphatase 85 40-136 U/L Troponin I < 0.028 <0.028 NG/ML Total Protein 6.6 6.4-8.2 GM/DL Albumin 3.4 3.2-4.5 GM/DL Salicylates Level < 5.0 L 5.0-20.0 MG/DL Acetaminophen Level < 10 L 10-30 UG/ML Serum Alcohol < 10 <10 MG/DL My Orders Orders - LEATHA ENGLISH Ed Iv/Invasive Line Start (12/01/21 02:13) Ns Iv 1000 Ml (Sodium Chloride 0.9%) (12/01/21 02:15) Morphine Injection (Morphine Injection (12/01/21 02:13) Lorazepam Injection (Ativan Injection) (12/01/21 02:15) Cbc With Automated Diff (12/01/21 02:13) Comprehensive Metabolic Panel (12/01/21 02:13) Continuous Ekg Monitoring (12/01/21 02:13) Ekg Tracing (12/01/21 02:13) Troponin I [place] (12/01/21 02:13) Drug Screen Stat (Urine) (12/01/21 02:13) Ua Culture If Indicated (12/01/21 02:13) Ceftriaxone (Rocephin) (12/01/21 02:45) Ceftriaxone 1 Gm Pre-Mix (Rocephin 1 Gm (12/01/21 02:45) Chest 1 View, Ap/Pa Only (12/01/21 02:38) Acetaminophen (12/01/21 00:20) Alcohol (12/01/21 00:20) Salicylate (12/01/21 00:20) Medications Given in ED Vital Signs/I&O 12/01/21 12/01/21 00:00 01:35 Temp 37.1 37.0 Pulse 62 76 Resp 18 18 B/P (MAP) 114/67 (83) 150/92 Pulse Ox 95 97 O2 Delivery Nasal Cannula Nasal Cannula O2 Flow Rate 3.00 3.00 Capillary Refill : Progress Note #1: Time: 00:24 Progress Note Plan to get a chest x-ray labs and urine but highly suspicious that she has delirium secondary to a UTI given her Alcantar catheter. She has a septic vital signs with a heart rate in the 60s, normal blood pressure, afebrile, no increased work of breathing and normal oxygen saturation in the mid 90s, nonlabored on room air. Progress Note #2: Time: 01:20 Progress Note EKG unremarkable. No elevated white count. Her sugar is 96 and her urine has some yeast and bacteria but is not floridly infected. We discussed doing further work-up. Her chest x-ray was difficult to interpret due to body habitus. Her states that she was exposed recently some of her bronchitis but she is oxygenating well on her baseline supplemental oxygen. She is wearing her BiPAP while at home. He says she is on torsemide and has been producing 6 or more liters of urine a day for the past week. He says she has no edema left and thinks maybe she is a little on the dry side because she has not been eating or drinking for the past several days. Her creatinine is bumped up from her normal creatinine so we will let her have her liter of fluids. We then discussed further work-up and follow-up and at this time the and patient would like to pursue hospice care. She is already in [facility]. We will send her home on palliative care to establish care with [email or web address]. She is asking for something for pain for her back and legs. We are working on transportation home. If she is going to be here for very long then we will get her into a bariatric hospital bed. 6 mg of IV morphine and 1 mg of IV Ativan for her agitation/anxiety. Instructed her to discontinue the torsemide. ECG Initial ECG Impression Date: Dec 01, 2021 Initial ECG Impression Time: 00:32 Initial ECG Rate: 58 Initial ECG Rhythm: Normal Sinus Initial ECG Intervals: Normal Initial ECG Impression: Normal Initial ECG Comparisson: Unchanged Comment Normal sinus rhythm without clinically relevant ST elevation or depression. Diagnostic Imaging Diagonstic Imaging: Xray Plain Films/CT/US/NM/MRI: chest Comments No acute cardiopulmonary process. Significantly obscured by body habitus. [facility], [place] NAME: JOSIAS HADDAD Pablo MED REC#: [id number] PT STATUS: DEP ER : 1970 PHYSICIAN: LEATHA ENGLISH MD ADMIT DATE: 11/30/21/ER Signed Date of Exam:12/01/21 CHEST 1 VIEW, AP/PA ONLY Indication: Altered mental status Portable chest 12:34 AM There is cardiomegaly with pulmonary vascular congestion. There is increased density of lungs that could be pulmonary edema. There is a suboptimal inspiration. IMPRESSION: Cardiomegaly with vascular congestion. The appearance is exacerbated by patient's obesity. Cannot rule out congestive heart failure with pulmonary edema. Clinical correlation recommended. Dictated by: Dictated on workstation # [id number] Dict: 12/01/21 0453 Trans: 12/01/21 0455 TCB [id number] Interpreted by: MARYLIN CHENG MD Electronically signed by: MARYLIN CHENG MD 12/01/215 Reviewed: Reviewed by Me Departure Impression Primary Impression: Dehydration Additional Impression: Hospice care Disposition: 01 HOME, SELF-CARE Condition: Stable Departure-Patient Inst. Decision time for Depature: 02:11 Referrals: DANIEL POSEY,LOCAL PHYSICIAN (PCP) Primary Care Physician Patient Instructions: Dehydration, Adult (DC), Palliative Care Add. Discharge Instructions: Contact your hospice company in the morning for help managing symptoms. Hold the torsemide until you discuss it with your primary care doctor. LEATHA ENGLISH Dec 01, 2021 02:09
[2021-12-01] MEDS ORDERED: morphine INJ 10 MG/ML 1ML (SYR OR VIAL) IVP STA (02:13)
[2021-12-01] MEDS ORDERED: NS IV 1000 ML 1,000 ML IV SCH (02:15)
[2021-12-01] MEDS ORDERED: LORazepam INJ 2 MG/ML (ATIVAN) VIAL IVP ONE (02:15)
[2021-12-01 02:36] LABS: BASOPHILS % (AUTO) 0 % (0-10); EOSINOPHILS # (AUTO) 0.4 10^3/uL (0.0-0.3); EOSINOPHILS % (AUTO) 5 % (0-10); HEMATOCRIT 34 % (35-52); HEMOGLOBIN 9.9 g/dL (11.5-16.0); LYMPHOCYTES # (AUTO) 2.1 10^3/uL (1.0-4.0); LYMPHOCYTES % (AUTO) 28 % (12-44); MEAN CORPUSCULAR HEMOGLOBIN 28 pg (25-34); MEAN CORPUSCULAR HGB CONC 30 g/dL (32-36); MEAN CORPUSCULAR VOLUME 94 fL (80-99); MEAN PLATELET VOLUME 9.6 fL (9.0-12.2); MONOCYTES % (AUTO) 14 % (0-12); NEUTROPHILS # (AUTO) 3.9 10^3/uL (1.8-7.8); NEUTROPHILS % (AUTO) 53 % (42-75); PLATELET COUNT 333 10^3/uL (130-400); WHITE BLOOD COUNT 7.4 10^3/uL (4.3-11.0)
[2021-12-01 02:37] LABS: AMPHETAMINE SCREEN, URINE NEGATIVE (NEGATIVE); BARBITURATE SCREEN URINE NEGATIVE (NEGATIVE); BENZODIAZEPINES SCREEN URINE NEGATIVE (NEGATIVE); CANNABINOID SCREEN, URINE NEGATIVE (NEGATIVE); CLARITY,URINE SL CLOUDY; COCAINE SCREEN URINE NEGATIVE (NEGATIVE); COLOR,URINE YELLOW; GLUCOSE, URINE (UA) NEGATIVE (NEGATIVE); METHADONE STAT NEGATIVE (NEGATIVE); OPIATE SCREEN URINE NEGATIVE (NEGATIVE); OXYCODONE STAT NEGATIVE (NEGATIVE); PH,URINE 5.5 (5-9); PROPOXYPHENE STAT NEGATIVE (NEGATIVE); PROTEIN,URINE 1+ (NEGATIVE); TRICYCLIC ANTIDEPRESSANTS SCRE NEGATIVE (NEGATIVE)
[2021-12-01 02:38] LABS: BACTERIA,URINE TRACE /HPF; BILIRUBIN,URINE NEGATIVE (NEGATIVE); HYALINE CASTS, URINE 0-2 /LPF; KETONES,URINE NEGATIVE (NEGATIVE); LEUKOCYTE ESTERASE ,URINE TRACE (NEGATIVE); NITRITE,URINE NEGATIVE (NEGATIVE); SQUAMOUS EPITHELIAL CELL,UR 0-2 /HPF; WBC,URINE 0-2 /HPF; YEAST,URINE MODERATE /HPF
[2021-12-01 02:40] LABS: ACETAMINOPHEN < 10 UG/ML (10-30); ALANINE AMINOTRANSFERASE 16 U/L (0-55); ALBUMIN 3.4 GM/DL (3.2-4.5); ALKALINE PHOSPHATASE 85 U/L (40-136); BILIRUBIN,TOTAL 0.3 MG/DL (0.1-1.0); BUN/CREATININE RATIO 17; CALCIUM 9.2 MG/DL (8.5-10.1); CARBON DIOXIDE 36 MMOL/L (21-32); CHLORIDE 94 MMOL/L (98-107); CREATININE SERUM 2.02 MG/DL (0.60-1.30); GFR ESTIMATED 30; GLUCOSE 96 MG/DL (70-105); POTASSIUM 4.9 MMOL/L (3.6-5.0); SALICYLATE < 5.0 MG/DL (5.0-20.0); SODIUM 144 MMOL/L (135-145); TOTAL PROTEIN 6.6 GM/DL (6.4-8.2)
[2021-12-01] MEDS ORDERED: cefTRIAXone 1 GM PRE-MIX 50 ML IV ONE (02:45)
[2021-12-01] MEDS ORDERED: cefTRIAXone 1,000 MG VIAL IV ONE (02:45)
--- NOTE | 2021-12-01 04:57 | Diagnostic Imaging Report ---
Indication: Altered mental status Portable chest 12:34 AM There is cardiomegaly with pulmonary vascular congestion. There is increased density of lungs that could be pulmonary edema. There is a suboptimal inspiration. IMPRESSION: Cardiomegaly with vascular congestion. The appearance is exacerbated by patient's obesity. Cannot rule out congestive heart failure with pulmonary edema. Clinical correlation recommended. Dictated by: Dictated on workstation # [id number]
== END 2021-12-01 02:31 | disposition home or self-care (01) ==
LOC: EDUNIT# 23:55 → ER 23:55
DX: E86.0 Dehydration (principal); J40 Bronchitis, not specified as acute or chronic; E11.9 Type 2 diabetes mellitus without complications; G47.30 Sleep apnea, unspecified; Z99.81 Dependence on supplemental oxygen; Z99.89 Dependence on other enabling machines and devices; Z79.4 Long term (current) use of insulin; Z51.5 Encounter for palliative care
CPT/HCPCS: 71045; 80053; 80306; 81000; 84484; 85025; 93005; 99284; G0480 ×3; 36415; 80320; 80329